=== PATIENT | male | born 1950 | race Caucasian/White ===

== ENCOUNTER 2022-10-03 12:42 | Inpatient (IN) ==
--- NOTE | 2022-10-03 13:21 | CT Scan Report ---
CT head/brain wo con CLINICAL HISTORY: 72 years-old Male with Neuro deficit, acute, stroke suspected. Acute strokelike sy mptoms TECHNIQUE: Multiple axial CT images of the head were obtained without contrast. A dose lowering tech nique was utilized adhering to the principles of ALARA. CT DOSE: 703.85 mGy.cm COMPARISON: None. FINDINGS: No acute intracranial hemorrhage, midline shift, intracranial mass, hydrocephalus, territorial ischem ia or abnormal extra-axial collection. Involutional changes with chronic microvascular ischemic disea se. 3 cm hypodense focus noted within the left lentiform nucleus/external capsule. Cerebral vascular calcifications. The study is motion degraded. The calvarium is intact. Mild mucosal thickening of the paranasal sinuses. The mastoid air cells are clear. IMPRESSION: 1. No acute intracranial hemorrhage, midline shift or acute territorial infarct. 2. Involutional changes with chronic microvascular ischemic disease. 3. Age-indeterminate infarct within the left lentiform nucleus/external capsule, 3 cm. Correlate with prior imaging. ACT 112: Negative or not required by law. The above report was generated using voice recognition software. It may contain grammatical, syntax o r spelling errors. Electronically signed by: Juan Pablo Wolff M.D. 10/03/2022 1:20 PM
[2022-10-03 13:40] LABS: Hematocrit (blood only) 36.8 % (42.0-52.0); Hemoglobin 12.2 g/dl (14.0-18.0); Mean Corpuscular Hemoglobin 27.8 pg (25.0-34.0); Mean Corpuscular Hgb Conc 33.2 g/dL (32.0-36.0); Mean Corpuscular Volume 83.8 fL (80.0-100.0); Mean Platelet Volume 10.6 fL (9.4-12.4); Platelet Count 322 K/uL (130-400); RDW Coefficient of Variation 13.3 % (11.5-14.5); RDW Standard Deviation 40.7 fL (36.4-46.3); Red Blood Count 4.39 M/uL (4.70-6.10); White Blood Count 11.01 K/ul (4.8-10.8)
[2022-10-03 14:03] LABS: Alanine Aminotransferase 44 U/L (7-52); BUN Creatinine Ratio 10.6 (10-20); Bilirubin,Total 0.5 mg/dl (0.2-1.0); Blood Urea Nitrogen 42 mg/dl (6-23); Calcium 8.1 mg/dl (8.6-10.3); Carbon Dioxide 25 mmol/L (21-32); Chloride 109 mmol/L (98-107); Est GFR (African American) 16.4 ml/min; Est GFR (Non-African American) 14.2 ml/min; Glucose 165 mg/dl (70-99(Fasting)); Total Protein 6.4 gm/dl (6.0-8.3)
--- NOTE | 2022-10-03 14:08 | XRay Report ---
SINGLE VIEW CHEST CLINICAL HISTORY: Strokelike symptoms FINDINGS: 2 AP, portable, upright chest radiographs are compared to study dated 11/20/2012. The heart i s enlarged noting atherosclerotic calcification of the thoracic aorta. The pulmonary vasculature is n oncongestive. Chronic interstitial thickening similar to previous. Scarring/atelectasis is noted at t he lung bases. No airspace consolidation or large pleural effusion is identified. No pneumothorax is seen. The skeletal structures are osteopenic. The bony thorax is grossly intact. IMPRESSION: Cardiomegaly with no acute cardiopulmonary abnormality identified. ACT 112: Negative or not required by law. Electronically signed by: Ishan Salmon M.D. 10/03/2022 2:07 PM
[2022-10-03] MEDS ORDERED: ASPIRIN CHEW 324 MG PO STA (14:11)
--- NOTE | 2022-10-03 14:11 | Emergency Department Note ---
Impression & Plan Acute left-sided muscle weakness, CKD (chronic kidney disease), COVID-19 ED Provider Note NAME: GREER LINTON AGE: 72 SEX: M : 1950 ARRIVES VIA: Walk-In INFORMANT: Patient ED PROVIDER(S): Jack Jeff DO CHIEF COMPLAINT: left sided weakness HPI: Patient is a 72-year-old male who presents to the ER for left-sided weakness. He notes this has been coming and going since this past week. Yesterday has been fairly constant in the left arm. He has noticed some in the left leg as well. He believes the left leg started last night or this morning. Denies any headache or change in vision. No chest pain or shortness of breath. No nausea, vomiting, or diarrhea. No dysuria, urgency, or frequency. No history of previous strokes. No other exacerbating or remitting factors. PAST MEDICAL HISTORY:See Below PAST SURGICAL HISTORY:See Below FAMILY HISTORY:See Below SOCIAL HISTORY:See Below HOME MEDICATIONS:See Below ALLERGIES:See Below VITALS:See Below PHYSICAL EXAMINATION: GENERAL: Sitting up in bed, alert, well appearing, well nourished, no distress, non-toxic EYE EXAM: normal conjunctiva. PERRL and EOM's intact. OROPHARYNX: no exudate, no erythema, lips, buccal mucosa, and tongue normal and mucous membranes are moist NECK: supple, no nuchal rigidity, no adenopathy, non-tender LUNGS: Clear to auscultation. Normal chest wall mechanics HEART: no murmurs, S1 normal and S2 normal ABDOMEN: abdomen soft, non-tender, normo-active bowel sounds, no masses, no rebound or guarding. BACK: Back is symmetrical on inspection and there is no deformity, no midline tenderness, no CVA tenderness. SKIN: no rashes and no bruising UPPER EXTREMITIES: upper extremities are grossly normal. LOWER EXTREMITIES: No pitting edema. NEURO EXAM: Normal sensorium, cranial nerves II-XII intact, normal speech, weakness with grasp as well as flexion extension left elbow and shoulder 4-5 on the left. Right is 5 out of 5., no weakness of legs. +drift on the legt MEDICAL DECISION MAKING: Patient is a 72-year-old male who presents the ER for the above-stated compl aint. IV was established blood work was obtained. On exam patient has clear left upper extremity weakness and some subtle left lower extremity weakness. Labs show no significant leukocytosis. No anemia. BMP with a creatinine of 3.9. External records were reviewed and this appears to be fairly close to baseline. With this CT angios were not performed. LFTs bilirubin was unremarkable. Patient was COVID-positive. CT does suggest a remote infarct although this was on the left side. Chest x-ray was clean. Patient would benefit from an MRI to completely confirm CVA. Patient was updated bedside discussed with the hospitalist for further evaluation. Patient was not a stroke alert as symptoms have been waxing and waning all week and constant for the past 24 hours. Triage Nursing notes reviewed. Limited review of prior medical records performed Vital Signs: reviewed and remarkable for HTN Differential diagnosis: Differential Diagnosis includes but is not limited to ischemic Stroke, hemorrhagic stroke, bells palsy, mass, neoplasm, migraine headache, seizure, subarachnoid hemorrhage, TIA, and transient global amnesia. ER treatment provided: See below Diagnostics interpreted by me include EKG and cardiac monitoring as listed below: -Cardiac Monitoring: An order was placed for continuous cardiac monitoring. The monitor shows a rate of 90 with sinus rhythm. -ECG: Sinus rhythm rate 76 Left axis No PVCs QTc 429 -Laboratory studies:Interpreted by me as stated above in MDM and shown below. Imaging studies: Xrays: As interpreted by me: Portable AP upright 1 view of the chest shows no focal infiltrate CTs show: CT of the head as described above Consultation(s): As described in MDM Procedures:none Critical Care: None Past Med/Surg History Medical History (Updated 10/03/22 @ 19:32 by Jack Jeff DO) CKD (chronic kidney disease), stage IV Diabetes mellitus, type II HTN (hypertension) JACOB (obstructive sleep apnea) Surgical History (Updated 10/03/22 @ 17:17 by Cornelia Ordaz PA-C) History of adenectomy 2013 @ [facility] [place] History of parathyroidectomy 2009 Family History Other Diabetes Heart disease Prostate cancer Social History Smoking Status: Former smoker Smoking End Date: 1984; Hx Alcohol Use: No Hx Substance Use: No Preferred Language: Citizen Of [place] Provider Engagement Executive Required: No Beliefs That Will Affect Care: None Current Living Situation: Spouse Feels Safe at Home: Yes Safety Concerns: Feels Safe At This Time Assistive Devices: Cane Allergies Allergies Allergy/AdvReac Type Severity Reaction Status Date / Time No Known Drug Allergies Allergy . Unverified 10/03/22 15:39 egg yolk AdvReac Diarrhea Unverified 10/03/22 15:39 Home Meds Home Medications Medication Instructions Recorded Confirmed amlodipine 10 mg tablet 5 mg PO DAILY 10/03/22 10/03/22 aspirin 81 mg tablet,delayed 81 mg PO DAILY 10/03/22 10/03/22 release atorvastatin 80 mg tablet 80 mg PO DAILY 10/03/22 10/03/22 cholecalciferol (vitamin D3) 25 25 mcg PO DAILY 10/03/22 10/03/22 mcg (1,000 unit) capsule ezetimibe 10 mg tablet 10 mg PO QAM 10/03/22 10/03/22 insulin aspar prot-insulin aspart 30 unit subcut QPM 10/03/22 10/03/22 100 unit/mL (70-30) subcutaneous pen (Novolog Mix 70-30FlexPen U-100) insulin aspar prot-insulin aspart 40 unit subcut QAM 10/03/22 10/03/22 100 unit/mL (70-30) subcutaneous pen (Novolog Mix 70-30FlexPen U-100) lisinopril 40 mg tablet 40 mg PO DAILY 10/03/22 10/03/22 potassium chloride 20 mEq 20 meq PO QAM 10/03/22 10/03/22 tablet,extended release(part/cryst) semaglutide 2 mg/dose (8 mg/3 mL) 2 mg subcut WK 10/03/22 10/03/22 subcutaneous pen injector (Ozempic) sildenafil 50 mg tablet 50 mg PO DAILY PRN Erectile 10/03/22 10/03/22 Dysfunction torsemide 20 mg tablet 20 mg PO DAILY 10/03/22 10/03/22 vitamin E 400 unit tablet 400 unit PO DAILY 10/03/22 10/03/22 Results & Data (ED) Vital Signs Vital Signs - 24 hr 10/03/22 12:48 10/03/22 13:42 10/03/22 13:42 Temperature 36.9 C Temperature Source Temporal Artery Scan Pulse Rate 81 Pulse Rate [Apical] 87 Respiratory Rate 18 20 Respiratory Effort / Characteristics Non-Labored Spontaneous Non-Labored Respiratory Depth Normal Normal Blood Pressure 212/95 H Blood Pressure [Right Arm] 229/132 H Blood Pressure Mean 134 Blood Pressure Mean [Right Arm] 164 Blood Pressure Position Sitting Pulse Oximetry 94 96 Oxygen Delivery Method Room Air Room Air Room Air Sepsis Recent Fever Within 48 Hours No Sepsis New/Unexplained Change in Mental Status N/A Sepsis Action Taken by Nursing No Action Required 10/03/22 13:42 10/03/22 13:48 10/03/22 14:23 Temperature Temperature Source Pulse Rate Pulse Rate [Apical] 82 Respiratory Rate 19 Respiratory Effort / Characteristics Respiratory Depth Blood Pressure Blood Pressure [Right Arm] 185/106 H Blood Pressure Mean Blood Pressure Mean [Right Arm] 132 Blood Pressure Position Pulse Oximetry 98 98 Oxygen Delivery Method Room Air Room Air Room Air Sepsis Recent Fever Within 48 Hours Sepsis New/Unexplained Change in Mental Status Sepsis Action Taken by Nursing 10/03/22 14:28 Temperature Temperature Source Pulse Rate 79 Pulse Rate [Apical] Respiratory Rate Respiratory Effort / Characteristics Respiratory Depth Blood Pressure Blood Pressure [Right Arm] Blood Pressure Mean Blood Pressure Mean [Right Arm] Blood Pressure Position Pulse Oximetry Oxygen Delivery Method Sepsis Recent Fever Within 48 Hours Sepsis New/Unexplained Change in Mental Status Sepsis Action Taken by Nursing Laboratory Data 10/03/22 13:04 10/03/22 13:04 Lab Results 10/03/22 10/03/22 10/03/22 Range/Units 13:04 13:04 13:04 WBC 11.01 H (4.8-10.8) K/ul RBC 4.39 L (4.70-6.10) M/uL Hgb 12.2 L (14.0-18.0) g/dl Hct 36.8 L (42.0-52.0) % MCV 83.8 (80.0-100.0) fL MCH 27.8 (25.0-34.0) pg MCHC 33.2 (32.0-36.0) g/dL RDW Std Deviation 40.7 (36.4-46.3) fL RDW Coeff of Isai 13.3 (11.5-14.5) % Plt Count 322 (130-400) K/uL MPV 10.6 (9.4-12.4) fL PT Cancelled INR Cancelled APTT Cancelled PTT Ratio Cancelled Sodium TNP Potassium TNP Chloride 109 H (98-107) mmol/L Carbon Dioxide 25 (21-32) mmol/L Anion Gap TNP BUN 42 H (6-23) mg/dl Creatinine 3.98 H (0.6-1.4) mg/dl Est Cr Clr Drug Dosing Not Reportable Est GFR ( Amer) 16.4 ml/min Est GFR (Non-Af Amer) 14.2 ml/min BUN/Creatinine Ratio 10.6 (10-20) Glucose 165 H (70-99(Fasting)) mg/dl Calcium 8.1 L (8.6-10.3) mg/dl Magnesium TNP Total Bilirubin 0.5 (0.2-1.0) mg/dl AST TNP ALT 44 (7-52) U/L Alkaline Phosphatase TNP Total Protein 6.4 (6.0-8.3) gm/dl Albumin TNP Globulin TNP Albumin/Globulin Ratio TNP SARS-CoV-2, RNA, NAAT (NEGATIVE) 10/03/22 10/03/22 Range/Units 14:05 14:19 WBC (4.8-10.8) K/ul RBC (4.70-6.10) M/uL Hgb (14.0-18.0) g/dl Hct (42.0-52.0) % MCV (80.0-100.0) fL MCH (25.0-34.0) pg MCHC (32.0-36.0) g/dL RDW Std Deviation (36.4-46.3) fL RDW Coeff of Isai (11.5-14.5) % Plt Count (130-400) K/uL MPV (9.4-12.4) fL PT INR APTT PTT Ratio Sodium 145 Potassium 3.7 Chloride (98-107) mmol/L Carbon Dioxide (21-32) mmol/L Anion Gap BUN (6-23) mg/dl Creatinine (0.6-1.4) mg/dl Est Cr Clr Drug Dosing Est GFR ( Amer) ml/min Est GFR (Non-Af Amer) ml/min BUN/Creatinine Ratio (10-20) Glucose (70-99(Fasting)) mg/dl Calcium (8.6-10.3) mg/dl Magnesium 2.1 Total Bilirubin (0.2-1.0) mg/dl AST 30 ALT (7-52) U/L Alkaline Phosphatase 64 Total Protein (6.0-8.3) gm/dl Albumin 2.7 L Globulin Albumin/Globulin Ratio SARS-CoV-2, RNA, NAAT POSITIVE A* (NEGATIVE) Administered Medications Discontinued Medications Aspirin (Aspirin Chew 324 Mg) 81 mg PO NOW STA Stop: 10/03/22 14:12 Last Admin: 10/03/22 14:26 Dose: 81 mg Documented By: Labetalol HCl (Labetalol Hcl Iv 5 Mg/Ml 20ml) 10 mg IV NOW STA Stop: 10/03/22 17:23 Last Admin: 10/03/22 17:46 Dose: 10 mg Documented By: FREDERICK Co-signed By: CA Nifedipine (Nifedipine Extended Rel 30 Mg Tabcr) 30 mg PO NOW STA Stop: 10/03/22 17:29 Last Admin: 10/03/22 17:46 Dose: 30 mg Documented By: FREDERICK Imaging Data Radiologist's Impression: Chest X-Ray 10/03/22 12:54 SINGLE VIEW CHEST CLINICAL HISTORY: Strokelike symptoms FINDINGS: 2 AP, portable, upright chest radiographs are compared to study dated 11/20/2012. The heart is enlarged noting atherosclerotic calcification of the thoracic aorta. The pulmonary vasculature is noncongestive. Chronic interstitial thickening similar to previous. Scarring/atelectasis is noted at the lung bases. No airspace consolidation or large pleural effusion is identified. No pneumothorax is seen. The skeletal structures are osteopenic. The bony thorax is grossly intact. IMPRESSION: Cardiomegaly with no acute cardiopulmonary abnormality identified. ACT 112: Negative or not required by law. Electronically signed by: Ishan Salmon M.D. 10/03/2022 2:[address] 10/03/22 12:54 CT head/brain wo con CLINICAL HISTORY: 72 years-old Male with Neuro deficit, acute, stroke suspected. Acute strokelike symptoms TECHNIQUE: Multiple axial CT images of the head were obtained without contrast. A dose lowering technique was utilized adhering to the principles of ALARA. CT DOSE: 703.85 mGy.cm COMPARISON: None. FINDINGS: No acute intracranial hemorrhage, midline shift, intracranial mass, hydrocepha aguilar, territorial ischemia or abnormal extra-axial collection. Involutional changes with chronic microvascular ischemic disease. 3 cm hypodense focus noted within the left lentiform nucleus/external capsule. Cerebral vascular calcifications. The study is motion degraded. The calvarium is intact. Mild mucosal thickening of the paranasal sinuses. The mastoid air cells are clear. IMPRESSION: 1. No acute intracranial hemorrhage, midline shift or acute territorial infarct. 2. Involutional changes with chronic microvascular ischemic disease. 3. Age-indeterminate infarct within the left lentiform nucleus/external capsule, 3 cm. Correlate with prior imaging. ACT 112: Negative or not required by law. The above report was generated using voice recognition software. It may contain grammatical, syntax or spelling errors. Electronically signed by: Juan Pablo Wolff M.D. 10/03/2022 1:20 PM Discharge Plan Visit Data Chief Complaint: Neuro Symptoms/Deficit Stated Complaint: NUMBNESS ON LEFT ARM ED Provider: Jack Jeff Discharge Problem: Acute left-sided muscle weakness, CKD (chronic kidney disease), COVID-19 Patient Disposition: Admitted As Inpatient Discharge Instructions Interventions: ED Discharge Assessment Last Done: 10/03/22 15:52
--- NOTE | 2022-10-03 14:26 | History & Physical Report ---
Date of Service October 03, 2022 Assessment & Plan (1) Left-sided weakness: (2) Diabetes mellitus, type II: (3) HTN (hypertension): (4) CKD (chronic kidney disease), stage IV: (5) JACOB (obstructive sleep apnea): Plan This is a 72-year-old male with PMH of type 2 diabetes, CKD 4, type 2 diabetes, dyslipidemia, JACOB, h/o carotid artery dissection, hypertension, pancreatic cyst and other medical problems listed below who presents with intermittent left upper extremity weakness over the past week. Left sided weakness Weakness and clumsiness of L hand for over 1 week, subtle LLE weakness noted over past few days Given aspirin in the ED, already on high dose statin Head CT with no acute intracranial hemorrhage, midline shift or acute territorial infarct, involutional changes with chronic microvascular ischemic disease, age-indeterminate infarct within the L lentiform nucleus/external capsule, 3 cm Cannot obtain CTA head/neck due CKD. Will obtain brain MRI wo contrast, bilateral carotid dopplers and echo with bubble study Dysphagia screen, PT/OT/speech, routine neuro consult HTN Elevated 212/87, does endorse some white coat syndrome, took AM meds Chlorthalidone and lasix recently discontinued, amlodipine decreased Giving IV Labetalol 10mg x 1 now, starting nifedipine 30mg BID in AM Continue to monitor DM II A1c 6.8 in July Basal/bolus insulin while in-patient per protocol BSG AC HS CKD IV Cr 3.98 today, still making urine Progressively worsening Cr per outpatient labs, previous Cr baseline ~mid 3s Was due to see Dr. Stevens in clinic this afternoon Holding Torsemide for now, routine nephro consult while admitted + Covid PCR on admission Asymptomatic. Isolation precautions JACOB Clarifying if still using of bipap HS DVT Ppx: SQ heparin Code status: FULL PCP: Yong Dispo: Admitted to PCU Patient seen in collaboration with Dr. Brooks. Please see addendum. I spent a total of 75 minutes coordinating, documenting, and providing care for this patient excluding time spent in the performance of separately billed services. History of Present Illness Chief Complaint: Left upper extremity weakness Primary Care Provider: Agatha Beach, This is a 72-year-old male with PMH of type 2 diabetes, CKD 4, type 2 diabetes, dyslipidemia, JACOB, h/o carotid artery dissection, hypertension, pancreatic cyst and other medical problems listed below who presents with intermittent left upper extremity weakness over the past week. Had weakness and numbness of L arm a week ago Monday evening that went away and then came back yesterday while resting. Hand felt heavy and clumsy, with his dexterity notably worsening this morning around 0700 when he could no longer button his shirt or tie his ponytail. Also admits that left leg has felt weaker over the past few days but is still been able to ambulate. No headache, lightheadedness, visual changes, falls, dysarthria or difficulty swallowing, chest pain, shortness of breath, nausea, vomiting, dumping, dysuria, diarrhea or constipation. Was seen by PCP a few days prior and has had a general decline of health since July. Has had worsening CKD and recent blood pressure medication changes such as discontinuation of chlorthalidone and Lasix. Allergies Allergy/AdvReac Type Severity Reaction Status Date / Time No Known Drug Allergies Allergy . Unverified 10/03/22 15:39 egg yolk AdvReac Diarrhea Unverified 10/03/22 15:39 Home Medications Medication Instructions Recorded Confirmed Type amlodipine 10 mg tablet 5 mg PO DAILY 10/03/22 10/03/22 History aspirin 81 mg tablet,delayed 81 mg PO DAILY 10/03/22 10/03/22 History release atorvastatin 80 mg tablet 80 mg PO DAILY 10/03/22 10/03/22 History cholecalciferol (vitamin D3) 25 25 mcg PO DAILY 10/03/22 10/03/22 History mcg (1,000 unit) capsule ezetimibe 10 mg tablet 10 mg PO QAM 10/03/22 10/03/22 History insulin aspar prot-insulin aspart 30 unit subcut QPM 10/03/22 10/03/22 History 100 unit/mL (70-30) subcutaneous pen (Novolog Mix 70-30FlexPen U-100) insulin aspar prot-insulin aspart 40 unit subcut QAM 10/03/22 10/03/22 History 100 unit/mL (70-30) subcutaneous pen (Novolog Mix 70-30FlexPen U-100) lisinopril 40 mg tablet 40 mg PO DAILY 10/03/22 10/03/22 History potassium chloride 20 mEq 20 meq PO QAM 10/03/22 10/03/22 History tablet,extended release(part/cryst) semaglutide 2 mg/dose (8 mg/3 mL) 2 mg subcut WK 10/03/22 10/03/22 History subcutaneous pen injector (Ozempic) sildenafil 50 mg tablet 50 mg PO DAILY PRN Erectile 10/03/22 10/03/22 History Dysfunction torsemide 20 mg tablet 20 mg PO DAILY 10/03/22 10/03/22 History vitamin E 400 unit tablet 400 unit PO DAILY 10/03/22 10/03/22 History Past Med/Surg History Medical History (Updated 10/03/22 @ 19:32 by Jack Jeff DO) CKD (chronic kidney disease), stage IV Diabetes mellitus, type II HTN (hypertension) JACOB (obstructive sleep apnea) Surgical History (Updated 10/03/22 @ 17:17 by Cornelia Ordaz PA-C) History of adenectomy 2013 @ [facility] [place] History of parathyroidectomy 2009 Family History Other Diabetes Heart disease Prostate cancer Social History Smoking Status: Former smoker Smoking End Date: 1984; Hx Alcohol Use: No Hx Substance Use: No Preferred Language: Ecuadorean Chuck Tender Required: No Beliefs That Will Affect Care: None Current Living Situation: Spouse Feels Safe at Home: Yes Safety Concerns: Feels Safe At This Time Assistive Devices: Cane Review of Systems Review of Systems: At least ten systems reviewed and negative except as noted in the HPI. Physical Exam Physical Exam: General Appearance: WD/WN, vitals as above, NAD, sitting up in bed, pleasant, conversing easily, obese Head: normocephalic, atraumatic Eyes: normal inspection, PERRL, conjunctivae normal, anicteric sclerae ENT: external ear and nose normal, oropharynx normal Neck: normal visual inspection, trachea midline, no thyromegaly Respiratory: normal respiratory effort, decreased breath sounds bilaterally, no wheeze, rales, rhonchi. No accessory muscle use Cardiovascular: regular rate, rhythm, + murmur, normal peripheral pulses, + BLE edema. Vessels: no JVD Chest: normal inspection of chest Abdomen/GI: normal bowel sounds, soft, nontender, no hepatosplenomegaly Extremities/Musculoskeletal: no cyanosis or clubbing, moves all extremities, LUE and LLE 4/5, RUE/RLE 5/5 Neurologic: PERRL, EOMI, accommodation nl, no face palsy, no dysarthria, CN's II-XI intact bilaterally, + Pronator drift L, dysmetria on L [id number] test Psychiatric: A+Ox3, euthymic affect Skin: no rashes, normal color, warm/dry Results & Data Results & Data Vital Signs (Past 12 Hours) Vital Signs Temp Pulse Pulse Resp BP BP Pulse Ox 10/03/22 13:48 10/03/22 13:42 98 10/03/22 13:42 10/03/22 13:42 87 20 229/132 H 96 10/03/22 12:48 36.9 C 81 18 212/95 H 94 O2 Del Method 10/03/22 13:48 Room Air 10/03/22 13:42 Room Air 10/03/22 13:42 Room Air 10/03/22 13:42 Room Air 10/03/22 12:48 Room Air Laboratory Results Short CBC 10/03/22 Range/Units 13:04 WBC 11.01 H (4.8-10.8) K/ul Hgb 12.2 L (14.0-18.0) g/dl Hct 36.8 L (42.0-52.0) % Plt Count 322 (130-400) K/uL BMP 10/03/22 10/03/22 13:04 14:19 Sodium TNP 145 Potassium TNP 3.7 Chloride 109 H Carbon Dioxide 25 BUN 42 H Creatinine 3.98 H Glucose 165 H Calcium 8.1 L Liver Function 10/03/22 10/03/22 Range/Units 13:04 14:19 Total Bilirubin 0.5 (0.2-1.0) mg/dl AST TNP 30 ALT 44 (7-52) U/L Alkaline Phosphatase TNP 64 Albumin TNP 2.7 L Diagnostic Findings Chest X-Ray 10/03/22 12:54 SINGLE VIEW CHEST CLINICAL HISTORY: Strokelike symptoms FINDINGS: 2 AP, portable, upright chest radiographs are compared to study dated 11/20/2012. The heart is enlarged noting atherosclerotic calcification of the thoracic aorta. The pulmonary vasculature is noncongestive. Chronic interstitial thickening similar to previous. Scarring/atelectasis is noted at the lung bases. No airspace consolidation or large pleural effusion is identified. No pneumothorax is seen. The skeletal structures are osteopenic. The bony thorax is grossly intact. IMPRESSION: Cardiomegaly with no acute cardiopulmonary abnormality identified. ACT 112: Negative or not required by law. Electronically signed by: Ishan Salmon M.D. 10/03/2022 2:[address] 10/03/22 12:54 CT head/brain wo con CLINICAL HISTORY: 72 years-old Male with Neuro deficit, acute, stroke suspected. Acute strokelike symptoms TECHNIQUE: Multiple axial CT images of the head were obtained without contrast. A dose lowering technique was utilized adhering to the principles of ALARA. CT DOSE: 703.85 mGy.cm COMPARISON: None. FINDINGS: No acute intracranial hemorrhage, midline shift, intracranial mass, hydrocephalus, territorial ischemia or abnormal extra-axial collection. Involutional changes with chronic microvascular ischemic disease. 3 cm hypodense focus noted within the left lentiform nucleus/external capsule. Cerebral vascular calcifications. The study is motion degraded. The calvarium is intact. Mild mucosal thickening of the paranasal sinuses. The mastoid air cells are clear. IMPRESSION: 1. No acute intracranial hemorrhage, midline shift or acute territorial infarct. 2. Involutional changes with chronic microvascular ischemic disease. 3. Age-indeterminate infarct within the left lentiform nucleus/external capsule, 3 cm. Correlate with prior imaging. ACT 112: Negative or not required by law. The above report was generated using voice recognition software. It may contain grammatical, syntax or spelling errors. Electronically signed by: Juan Pablo Wolff M.D. 10/03/2022 1:20 PM ECG Additional Comments: EKG reviewed: NSR, no significant change from previous Supervising Physician Co-Signing Physician Notes I have seen and examined the patient and have discussed the case with the provider above. I agree with the assessment and plan as stated with the following exceptions. Patient is a 72-year-old man with diabetes and a history of carotid artery dissection presenting with left-sided weakness for the past week. He is mentating clearly and denies any headache or visual changes. He reports poor dexterity in his hand specifically when performing fine motor movements such as tying his hair back. He takes a baby aspirin at home as well as atorvastatin 80 mg daily. He reports compliance with his antihypertensive regimen although his blood pressure is uncontrolled peaking today at 229/132. He takes lisinopril 40 mg daily, torsemide 20 mg daily and amlodipine which was recently cut back out of concern for lower extremity swelling. Although he has lower extremity swelling he also reports a recent gout flare in his right foot and took prednisone for this just recently which may also be contributing to his swelling. On physical exam he is in no acute distress and he is able to move his left upper extremity although has 4 out of 5 knife cutter strength and 4-5 strength throughout in his arm with poor demonstration of fine motor movement in his left hand compared to other extremities. There are no other gross focal deficits seen on exam. Speech is intact language and memory are intact. He is oriented and answering questions appropriately. Cardiac exam reveals S1-S2 heard with no evidence of murmurs gallops or rubs. He has a regular rate and rhythm. He does have trace edema bilaterally in the lower extremities. He is obese. Work-up includes a slightly abnormal CBC with a white blood cell count of 11 and H&H 12.2/37. He has no coagulopathy. BMP is abnormal with a BUN of 42 and a creatinine of 3.98. Albumin is low at 2.7. He is COVID-positive. Head CT as noted above with age-indeterminate infarct within the left lentiform nucleus/external capsule and chronic microvascular ischemic disease seen. MRI is pending. Chest x-ray is unremarkable. EKG reveals sinus rhythm with LVH and a rate of 76. 1. Left upper extremity weakness, rule out stroke 2. Hypertensive urgency 3. CKD Stage IV 4. DMII 5. Covid-19 infection 6. Morbid obesity Concern for stroke with new onset neurologic deficit in LUE. MRI pending. Known h/o carotid dissection-continues on ASA/statin--repeat US carotids now. Neuro consult. Echo. PT/OT to eval in am. Blood pressure is not controlled despite compliance with medications per patient. Improved with labetalol. Appreciate nephrology assistance with this in the setting of CKD Stage IV. Although norvasc was decreased out of concern for LE swelling, he recently had a gout flare and prednisone that may be contributing to these findings. Held ACEI and diuretic given slightly worse creatinine, and started nifedipine. Diabetes appears very well controlled. Weight loss advised. He did have nasal symptoms consistent with covid infection and is not requiring any covid specific treatments at this time. DO Todd
[2022-10-03 14:58] LABS: Albumin Level 2.7 gm/dl (3.4-5.0); Magnesium 2.1 mg/dl (1.7-2.4); Potassium 3.7 mmol/L (3.5-5.1)
[2022-10-03 16:19] LABS: INR 1.1 (0.9-1.1); Partial Thromboplastin Time 28.5 Seconds (21.0-31.0); Prothrombin Time 11.6 Seconds (9.0-12.0)
[2022-10-03] MEDS ORDERED: POLYETHYLENE (MIRALAX) 17 GM PACK PO PRN (16:27)
[2022-10-03] MEDS ORDERED: ACETAMINOPHEN 325 MG TAB PO PRN (16:27)
[2022-10-03] MEDS ORDERED: PHARMACIST DISCHARGE MED REC CONSULT PRN (16:27)
[2022-10-03] MEDS ORDERED: ONDANSETRON INJ 2 MG/ML 2 ML VIAL IV PRN (16:27)
[2022-10-03] MEDS ORDERED: Patient's HEIGHT &/or WEIGHT Needed SCH (16:45)
--- NOTE | 2022-10-03 17:10 | Electrocardiogram Report ---
Test Reason : Blood Pressure : / mmHG Vent. Rate : 076 BPM Atrial Rate : 076 BPM P-R Int : 160 ms QRS Dur : 086 ms QT Int : 382 ms P-R-T Axes : 066 -22 055 degrees QTc Int : 429 ms Normal sinus rhythm Left ventricular hypertrophy with repolarization abnormality Abnormal ECG When compared with ECG of 20-NOV-2012 10:50, No significant change was found Confirmed by Blayne Jarquin ([id number]) on 10/03/2022 5:09:57 PM Referred By: Confirmed By:Jerome Jarquin
[2022-10-03] MEDS ORDERED: LABETALOL HCL IV 5 MG/ML 20ML IV STA (17:22)
[2022-10-03] MEDS ORDERED: NIFEdipine EXTENDED REL 30 MG TABCR PO STA (17:28)
[2022-10-03] MEDS ORDERED: CARBOHYDRATES FOR HYPOGLYCEMIA PO PRN (18:23)
[2022-10-03] MEDS ORDERED: GLUCAGON FOR INJ 1 MG VIAL SQ PRN (18:23)
[2022-10-03] MEDS ORDERED: GLUCOSE 10 TAB/TUBE PO PRN (18:23)
[2022-10-03] MEDS ORDERED: GLUCOSE 40% GEL 15 GM TUBE PO PRN (18:23)
[2022-10-03] MEDS ORDERED: DEXTROSE 50% 50 ML SYRINGE IV PRN (18:23)
[2022-10-03] MEDS: INSULIN ASPART PER UNIT CHARGE SC SCH (20:24)
[2022-10-03] MEDS: LANTUS PER UNIT CHARGE SQ SCH (20:28)
[2022-10-03] MEDS: HEPARIN SOD 5,000 UNIT/0.5 ML VIAL SQ SCH (21:24)
--- NOTE | 2022-10-03 22:43 | Magnetic Resonance Report ---
Exam(s): MRI HEAD Without Contrast EXAM: MR Head Without Intravenous Contrast CLINICAL HISTORY: Reason for exam: LUE weakness, stroke felicita. TECHNIQUE: Magnetic resonance images of the head/brain without intravenous contrast in multiple planes. COMPARISON: CT head 10/03/22 FINDINGS: There is a 12 mm focus of diffusion restriction within the right harris radiata consistent with acute/subacute lacunar-type infarct. No other foci of acute cerebral ischemia are demonstrated. There is no acute intracranial hemorrhage or abnormal extra-axial fluid collection. Focus of susceptibility artifact adjacent to the occipital horn of the right lateral ventricle suggests remote microhemorrhage. There is no mass-effect or midline shift. There is generalized parenchymal volume loss. There are chronic lacunar infarcts in the left caudate, left putamen, and right thalamus. T2 hyperintense signal abnormality in the periventricular and deep cerebral white matter is consistent with mild to moderate chronic small vessel ischemic disease. There is no hydrocephalus. Visualized intracranial flow voids appear normal. Left vertebral artery is noted to be hypoplastic. There is trace mucosal thickening in the paranasal sinuses. Mastoid air cells are clear. Orbits are unremarkable. IMPRESSION: 1. Acute/subacute lacunar-type infarct in the right harris radiata. Communications: Call Doctor Stroke Electronically signed by: Dusty Weir M.D. 10/03/22 22:42 PM
--- NOTE | 2022-10-03 23:28 | Ultrasound Report ---
Exam(s): US CAROTID EXAM: US Duplex Bilateral Extracranial Arteries CLINICAL HISTORY: Reason for exam: stroke eval,LUE weakness. TECHNIQUE: Real-time duplex ultrasound scan of the extracranial arteries integrating B-mode two-dimensional vascular structure, Doppler spectral analysis and color flow Doppler imaging. COMPARISON: No relevant prior studies available. FINDINGS: Right common carotid artery: Multifocal calcific plaque. No occlusion or significant stenosis on color flow and spectral Doppler imaging. Right internal carotid artery: Multifocal calcific plaque. Peak systolic velocity 74 cm/s. No occlusion or significant stenosis on color flow and spectral Doppler imaging. Right external carotid artery: Calcific plaque. Mildly elevated velocity of 133 cm/s suggesting mild stenosis. No occlusion on color flow and spectral Doppler imaging. Right vertebral artery: Unremarkable. Antegrade flow. Right ICA/CCA ratio: 0.70. Within normal limits. Left common carotid artery: Multifocal calcific plaque. No occlusion or significant stenosis on color flow and spectral Doppler imaging. Left internal carotid artery: Multifocal calcific plaque. Peak systolic velocity 97 cm/s. No occlusion or significant stenosis on color flow and spectral Doppler imaging. Left external carotid artery: Calcific plaque. Elevated peak systolic velocity of 340 cm/s suggesting high-grade stenosis. No occlusion on color flow and spectral Doppler imaging. Left vertebral artery: Unremarkable. Antegrade flow. Left ICA/CCA ratio: 1.1. Within normal limits. CAROTID STENOSIS REFERENCE USING SRU CRITERIA: Mild - <50% stenosis. ICA PSV is less than 125 cm/second and plaque or intimal thickening is visible. Moderate - 50-69% stenosis. ICA PSV is 125 to 230 cm/second and plaque is visible. Severe - 70-94% stenosis. ICA PSV is more than 230 cm/second and visible plaque with lumen narrowing is seen. Near occlusion - 95-99% stenosis. ICA PSV is variable and significant plaque with luminal narrowing is seen. Occluded - 100% stenosis. No flow identified. IMPRESSION: 1. Bilateral carotid atherosclerotic disease. 2. Estimated less than 50% stenosis in the bilateral ICAs by sonographic criteria. 3. Incidentally noted severe stenosis in the left external carotid artery. Electronically signed by: Dusty Weir M.D. 10/03/22 23:27 PM
[2022-10-04] MEDS: HEPARIN SOD 5,000 UNIT/0.5 ML VIAL SQ SCH ×3 (05:40→21:07)
[2022-10-04] MEDS: CHOLECALCIFEROL 1,000 UNITS 25 MCG TAB PO SCH (08:02)
[2022-10-04] MEDS: POTASSIUM CHLORIDE CRTAB 20 MEQ TABCR PO SCH (08:02)
[2022-10-04] MEDS: EZETIMIBE 10 MG TABLET PO SCH (08:02)
[2022-10-04] MEDS: ASPIRIN 81 MG ECTAB PO SCH (08:03)
[2022-10-04] MEDS: ATORVASTATIN 40 MG TAB PO SCH (08:03)
[2022-10-04] MEDS: TOCOPHERYL, DL-ALPHA 400 UNITS 180 MG CAP PO SCH (08:03)
[2022-10-04 08:18] LABS: Hematocrit (blood only) 33.4 % (42.0-52.0); Hemoglobin 11.3 g/dl (14.0-18.0); Mean Corpuscular Hemoglobin 28.3 pg (25.0-34.0); Mean Corpuscular Hgb Conc 33.8 g/dL (32.0-36.0); Mean Corpuscular Volume 83.5 fL (80.0-100.0); Mean Platelet Volume 10.6 fL (9.4-12.4); Platelet Count 290 K/uL (130-400); RDW Coefficient of Variation 13.7 % (11.5-14.5); RDW Standard Deviation 41.4 fL (36.4-46.3); White Blood Count 10.28 K/ul (4.8-10.8)
[2022-10-04 08:23] LABS: BUN Creatinine Ratio 10.1 (10-20); Calcium 8.2 mg/dl (8.6-10.3); Chol HDL Ratio 3.9 (0-5); Creatinine Clr Calc Pharmacy 23.1 ml/min; Est GFR (African American) 16.5 ml/min; Est GFR (Non-African American) 14.3 ml/min; Potassium 3.1 mmol/L (3.5-5.1)
[2022-10-04] MEDS: LANTUS PER UNIT CHARGE SQ SCH ×2 (08:34→20:54)
[2022-10-04] MEDS: INSULIN ASPART PER UNIT CHARGE SC SCH ×4 (08:34→20:42)
[2022-10-04] MEDS ORDERED: amLODIPine BESYLATE 5 MG TAB PO SCH (09:00)
[2022-10-04] MEDS ORDERED: lisinopril 40 MG TAB PO SCH (09:00)
[2022-10-04] MEDS ORDERED: TORSEMIDE 20 MG TAB PO SCH (09:00)
[2022-10-04] MEDS: NIFEdipine EXTENDED REL 30 MG TABCR PO SCH (09:05)
--- NOTE | 2022-10-04 09:25 | Nephrology Consultation ---
Date of Consultation October 04, 2022 Assessment & Plan (1) HTN (hypertension): Goal MAP for now is 95-100. Current MAP is 102, acceptable. -continue nifedipine standing -wrote for standing labetalol 5 mg IV as needed MAP greater than 110 every 4 hours Continue to hold torsemide and losartan (2) CKD (chronic kidney disease), stage IV: rapidly progressive CKD 4; high risk to need dialysis next 12 -18 mos if not sooner. CKD attributed to hypertension, diabetes, class III obesity hi storically. Creatinine was mid threes early July, up to 22 September 4. Would not consider this acute kidney injury necessarily but progressive CKD. Concern for nephrotic syndrome emerging given that albuminuria worsened recently from 3 g daily in 2021 to 8 g daily in August. Patient follows with Dr. Stevens and was to see him this week but is hospitalized instead. Note also albumin is only 2.7 after historically being near normal as recently as late 2021 -daily BMP -close OP f/u; including close follow-up with CKD medical case worker and ESRD education Torsemide and ARB on hold for now Potassium 3.1 today without recent administration of diuretics: 40 mill equivalents x1 p.o. potassium Not currently on renal diet and none indicated so far We will check phosphorus in a.m. -no hx of formal OP proteinuria eval > consider as OP or IP; w/ acute stroke not a candidate for immunosuppressive therapy imminently (3) Acute CVA (cerebrovascular accident): per neuro and primary service History of Present Illness Reason for Consultation: CKD 4, worsening renal function Requesting Physician: Dr Brooks Attending Physician: Vita Kilgore MD History of Present Illness 72 y/o M whom I'm asked to see for advanced CKD / CKD 4 was admitted yesterday for evaluation of one week of L sided weakness. Neurology w/u shows acute small R harris radiata stroke. He tested positive for covid on presentation but has been asymptomatic PMH includes progressive sub nephrotic CKD 4 GFR newly 20 > 15 in 2022, DM, HTN, s/p L adrenalectomy for mgt of secondary HTN and s/p 2013 parathryoidectomy for ?primary HPTH, JACOB intolerant of CPAP. h/o carotid artery dissection, gout, pancreatic cyst. The patient reported weakness and numbness of L arm a week ago Monday evening which resolved but recurred October 02. Hand felt heavy and clumsy. He opted to come to the ER after his dexterity notably worsening 7 AM on October 03 to where he could no longer button his shirt or tie his ponytail. Also endorsed a few days of left leg weakness at admission. MRI as below. His presenting blood pressure was 212 systolic: Has run in the 160s to 170s since last evening. Per neuro, goal MAP is 95-100 No headache, lightheadedness, visual changes, falls, dysarthria or difficulty swallowing, chest pain, shortness of breath, nausea, vomiting, dumping, dysuria, diarrhea or constipation. at bedside when I evaluated pt today Allergies Allergy/AdvReac Type Severity Reaction Status Date / Time No Known Drug Allergies Allergy . Unverified 10/03/22 15:39 egg yolk AdvReac Diarrhea Unverified 10/03/22 15:39 Home Medications Medication Instructions Recorded Confirmed Type amlodipine 10 mg tablet 5 mg PO DAILY 10/03/22 10/03/22 History aspirin 81 mg tablet,delayed 81 mg PO DAILY 10/03/22 10/03/22 History release atorvastatin 80 mg tablet 80 mg PO DAILY 10/03/22 10/03/22 History cholecalciferol (vitamin D3) 25 25 mcg PO DAILY 10/03/22 10/03/22 History mcg (1,000 unit) capsule ezetimibe 10 mg tablet 10 mg PO QAM 10/03/22 10/03/22 History insulin aspar prot-insulin aspart 30 unit subcut QPM 10/03/22 10/03/22 History 100 unit/mL (70-30) subcutaneous pen (Novolog Mix 70-30FlexPen U-100) insulin aspar prot-insulin aspart 40 unit subcut QAM 10/03/22 10/03/22 History 100 unit/mL (70-30) subcutaneous pen (Novolog Mix 70-30FlexPen U-100) lisinopril 40 mg tablet 40 mg PO DAILY 10/03/22 10/03/22 History potassium chloride 20 mEq 20 meq PO QAM 10/03/22 10/03/22 History tablet,extended release(part/cryst) semaglutide 2 mg/dose (8 mg/3 mL) 2 mg subcut WK 10/03/22 10/03/22 History subcutaneous pen injector (Ozempic) sildenafil 50 mg tablet 50 mg PO DAILY PRN Erectile 10/03/22 10/03/22 History Dysfunction torsemide 20 mg tablet 20 mg PO DAILY 10/03/22 10/03/22 History vitamin E 400 unit tablet 400 unit PO DAILY 10/03/22 10/03/22 History Patient History Medical History (Updated 10/04/22 @ 22:04 by Yoly Martinez MD, PhD) CKD (chronic kidney disease), stage IV Diabetes mellitus, type II HTN (hypertension) Obesity due to excess calories with serious comorbidity JACOB (obstructive sleep apnea) Surgical History [place] of [place]ectomy [place] [facility] [place] History of parathyroidectomy 2009 Family History Father , age 90 with prostate cancer Prostate cancer Mother , age 67 of congestive heart failure Heart disease Other Diabetes Social History Smoking Status: Former smoker Age Started Using Tobacco: 12; Age Quit Using Tobacco: 35; packs per day: 1; Smoking End Date: 1984; Hx Alcohol Use: No Hx Substance Use: No Preferred Language: German Communication Ability: Effective Pre Sales Network Engineer Required: No Beliefs That Will Affect Care: None Current Living Situation: Spouse current occupational status: retired 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 [employer] Feels Safe at Home: Yes Safety Concerns: Feels Safe At This Time Assistive Devices: Cane Review of Systems Review of Systems: All systems reviewed & are unremarkable except as noted in HPI & below Physical Exam Constitutional: well developed, well nourished, + morbidly obese and cooperative; no acute distress Eyes: EOM intact bilaterally ENMT: Ears: no external ear abnormality Nose: no external nose abnormality Mouth: + dry oral mucous membranes Neck: no nuchal rigidity Respiratory: normal respiratory effort Auscultation: + diminished lung so unds Cardiovascular: Rate/Rhythm: regular rate and regular rhythm Extremities: + edema Gastrointestinal (Abdomen): Inspection/Auscultation: normal bowel sounds Percussion/Palpation: abdomen soft; abdomen nontender Musculoskeletal: Extremities: strength 5/5 throughout Skin: no rashes, warm and dry Neurologic: block, fluent speech, no tremor; L sided weakness at times Results & Data Vital Signs (Past 12 Hours) Vital Signs Temp Pulse Pulse Resp BP Pulse Ox O2 Del Method 10/04/22 08:00 36.8 C 89 18 169/87 H 93 Room Air 10/04/22 07:17 82 10/04/22 04:35 36.9 C 86 18 165/80 H 93 Room Air 10/04/22 00:00 84 10/03/22 23:14 36.8 C 82 16 163/75 H 93 Room Air Laboratory Results 10/04/22 07:31 10/04/22 07:31
--- NOTE | 2022-10-04 09:57 | Neurology Consultation ---
Date of Consultation October 04, 2022 Assessment & Plan (1) Acute CVA (cerebrovascular accident): (2) Acute left hemiparesis: Plan patient had the onset of acute left arm greater than leg weakness October 03. MRI of the brain showed an acute, small right harris radiata stroke. He had an event 2 weeks previous of a similar nature. The MRI does show old small vessel ischemic disease including scattered small lacunes There are no other neurologic deficits on exam. He has multiple stroke risk factors including hypertension, diabetes, and obstructive sleep apnea. He is also a former cigarette smoker years ago. He has no known heart disease. Carotid ultrasound revealed less than 50% stenosis in the bilateral internal carotid arteries ( atherosclerotic disease ). Recommendations: 1. initiate clopidogrel 75 mg daily with the 81 mg aspirin tablet daily. Do this for 3 weeks and then discontinued aspirin and remain on clopidogrel low. 2. Awaiting echocardiogram results. 3. continue high-dose atorvastatin. 4. Consider hemoglobin A1c and treat glucose accordingly. 5. Control blood pressure as you are doing, aiming for a mean arterial pressure of 95-100. 6. Can consider MR angiography of the head ( no contrast is needed for this study ). 7. Physical and occupational therapy consult -increase activity as able. Overall, I spent a total of 75 minutes with this case including review of records, review of MRI films, direct evaluation the patient at bedside, reports generation, and discussion of the case with the patient at bedside, and Dr. Kilgore, including differential diagnosis and treatment options History of Present Illness Reason for Consultation: Patient is a 72-year-old, who I was asked to see at the request of Cornelia Ordaz PA-C, for neurologic evaluation regarding stroke Requesting Physician: Prashant Ordaz PA-C Attending Physician: Vita Kilgore MD History of Present Illness patient has a history of hypertension for at least 10 years, as well as type 2 diabetes, chronic kidney disease, and obstructive sleep apnea for close to 5 years. He has been on 81 mg aspirin tablet for years and atorvastatin 80 for about 2 years. He had an episode of swelling in his left lower extremity about 5 weeks ago, help by steroids. Approximately 2 weeks ago he noted some weakness in his left arm ( hand) and left leg. His hand was weak and he dropped things and his leg was a little weak as well. This lasted for a few days and then resolved. On October 03 he woke with some weakness in his left arm greater than left leg. It was proximal leg and diffuse in the arm with worsening weakness in the hand as time went on. He had a little bit of numbness in his left hand and foot as well. He had no speech issues, headaches, or vision issues. He arrived to the emergency room October 03 at 12:48 p.m. with a pulse of 81, respiratory rate 18, blood pressure 212/95, and O2 saturation 94%. he was noted to have weakness in the left arm and leg with drift in each limb. CBC was unremarkable and Chem profile showed a glucose of 165 an elevated BUN and creatinine. Chest x-ray showed cardiomegaly. CT scan of the head was unremarkable. MRI of the brain showed a right harris radiata acute stroke of a very small in nature. He has multiple old lacunar infarcts in the left caudate, left putamen, and right thalamus. There is chronic small vessel ischemic disease as well. I reviewed these films. Today he feels about the same no new symptoms. Nursing reports no events or problems since admission. Allergies Allergy/AdvReac Type Severity Reaction Status Date / Time No Known Drug Allergies Allergy . Unverified 10/03/22 15:39 egg yolk AdvReac Diarrhea Unverified 10/03/22 15:39 Home Medications Medication Instructions Recorded Confirmed Type amlodipine 10 mg tablet 5 mg PO DAILY 10/03/22 10/03/22 History aspirin 81 mg tablet,delayed 81 mg PO DAILY 10/03/22 10/03/22 History release atorvastatin 80 mg tablet 80 mg PO DAILY 10/03/22 10/03/22 History cholecalciferol (vitamin D3) 25 25 mcg PO DAILY 10/03/22 10/03/22 History mcg (1,000 unit) capsule ezetimibe 10 mg tablet 10 mg PO QAM 10/03/22 10/03/22 History insulin aspar prot-insulin aspart 30 unit subcut QPM 10/03/22 10/03/22 History 100 unit/mL (70-30) subcutaneous pen (Novolog Mix 70-30FlexPen U-100) insulin aspar prot-insulin aspart 40 unit subcut QAM 10/03/22 10/03/22 History 100 unit/mL (70-30) subcutaneous pen (Novolog Mix 70-30FlexPen U-100) lisinopril 40 mg tablet 40 mg PO DAILY 10/03/22 10/03/22 History potassium chloride 20 mEq 20 meq PO QAM 10/03/22 10/03/22 History tablet,extended release(part/cryst) semaglutide 2 mg/dose (8 mg/3 mL) 2 mg subcut WK 10/03/22 10/03/22 History subcutaneous pen injector (Ozempic) sildenafil 50 mg tablet 50 mg PO DAILY PRN Erectile 10/03/22 10/03/22 History Dysfunction torsemide 20 mg tablet 20 mg PO DAILY 10/03/22 10/03/22 History vitamin E 400 unit tablet 400 unit PO DAILY 10/03/22 10/03/22 History Patient History Medical History CKD (chronic kidney disease), stage IV Diabetes mellitus, type II HTN (hypertension) JACBO (obstructive sleep apnea) [place] [facility] [place] of [place]roidectomy 2009 Family History Father , age 90 with prostate cancer Prostate cancer Mother , age 67 of congestive heart failure Heart disease Other Diabetes Social History (Updated 10/04/22 @ 09:47 by Deangelo Liao MD) Smoking Status: Former smoker Age Started Using Tobacco: 12; Age Quit Using Tobacco: 35; packs per day: 1; Hx Alcohol Use: No Hx Substance Use: No Preferred Language: [employer] Member Required: No Beliefs That Will Affect Care: None Current Living Situation: Spouse current occupational status: retired 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 [employer] Feels Safe at Home: Yes Assistive Devices: Cane Review of Systems Constitutional: no fever, no fatigue and no weakness Eyes: no diplopia, no eye pain and no worsening vision Ear, Nose, Mouth, Throat: no ear pain, no tinnitus, no hearing loss, no dizziness, no snoring, no hoarseness and no dysphagia Respiratory: no cough and no dyspnea Cardiovascular: no chest pain, no palpitations and no lightheadedness Gastrointestinal: no abdominal pain, no nausea and no vomiting Musculoskeletal: no back pain, no neck pain, no radicular pain, no joint pain and no myalgia Integumentary: no rash and no lesions Neurologic: + gait abnormality and + localized weakness; no generalized weakness, no tingling, no numbness, no tremor(s), no abnormal movements, no headache(s), no abnormal speech, no confusion and no memory loss Psychiatric: no depression, no irritability, no anxiety, no difficulty concentrating, no confusion and no hallucinations Endocrine: no fatigue and no flushing Hematologic / Lymphatic: no easy bleeding and no easy bruising Allergy / Immunological: no urticaria and no problem reported Exam (Neuro) Physical Exam: The patient is right-handed. The patient is awake, alert, and attentive. Speech is normal without any aphasia or dysarthria. The patient can name objects, repeat phrases, and has normal spontaneous speech. Mentation and thought processes are intact, with orientation to person, place and time, and normal fund of knowledge. Attention and concentration are normal. Mood and affect are normal and appropriate. General appearance and grooming are normal. Short and long-term memory are intact. Pupils are 3 mm bilaterally and reactive to light. Extraocular eye muscles are intact without nystagmus. Visual acuity and visual guerrier seem normal grossly to confrontation. There are no deficits to sensation in the face in all 3 distributions of the fifth cranial nerve bilaterally. Corneal reflexes are positive bilaterally. Facial strength and symmetry was normal bilaterally. Hearing seems normal bilaterally. Palate moves well without asymmetry. There is normal sternocleidomastoid and trapezius (shoulder shrug) strength bilaterally. Tongue is midline with good strength bilaterally. Neck has a full range of motion without discomfort. There are no cervical bruits bilaterally. There are no cranial or ocular bruits. Heart is without murmur. There is a regular rhythm and rate. Cervical, thoracic, and lumbar spine are nontender to palpation. Gait was not tested and stance sitting up in bed was rather poor for him to maintain With outstretched arms there is drift on the left. There are no resting, pos tural, or action tremors. There is no ataxia with finger to nose testing. There is Decreased facility in clumsiness in the left hand compared to the right which was normal. There was drift in the left leg. No other abnormal involuntary movements are noted. Motor strength is 5/5 diffusely In the right arm and leg both proximally and distally. In the left arm strength is 4-/ 5 both proximally and distally. In the left leg, strength is 4+/5 diffusely. The limbs have good tone without rigidity or spasticity. There is no atrophy noted in the muscles. Muscle bulk is normal, there is no tenderness to palpation, no myotonia to percussion, and no fasciculations seen. Sensory examination is intact to touch and pin throughout all 4 limbs diffusely. Reflexes are 2/4 in the Right biceps, triceps, brachioradialis, quadriceps, and Achilles tendons. the left arm and leg reflexes are trace to absent. There is no clonus bilaterally. Toes are downgoing with plantar stimulation On the right and upgoing on plantar stimulation on the left. Peripheral pulses are present and of normal quality distally in all 4 limbs. There is no peripheral edema noted in the limbs. Results & Data Vital Signs (Past 12 Hours) Vital Signs Temp Pulse Pulse Resp BP Pulse Ox O2 Del Method 10/04/22 08:00 36.8 C 89 18 169/87 H 93 Room Air 10/04/22 07:17 82 10/04/22 04:35 36.9 C 86 18 165/80 H 93 Room Air 10/04/22 00:00 84 10/03/22 23:14 36.8 C 82 16 163/75 H 93 Room Air PG Care Time/CCT Total # of Minutes Spent Total Time Spent with Patient: Total time spent is greater than 50% in coordination of care (as documented) at patient's floor/unit and/or counseling patient: Coding Level of Care Code 90600 INT INP/OBS CARE 3/75MIN Diagnoses Acute CVA (cerebrovascular accident) I63.9 Acute left hemiparesis G81.94 Time Spent (min) 75
[2022-10-04] MEDS ORDERED: CLOPIDOGREL BISULFATE 75 MG TAB PO ONE (10:05)
[2022-10-04] MEDS ORDERED: LABETALOL HCL IV 5 MG/ML 20ML IV PRN (12:25)
[2022-10-04] MEDS ORDERED: POTASSIUM CHLORIDE CRTAB 20 MEQ TABCR PO STA (12:31)
--- NOTE | 2022-10-04 13:14 | Hospitalist Progress Note ---
Date of Service October 04, 2022 Assessment & Plan (1) Left-sided weakness: (2) Diabetes mellitus, type II: (3) HTN (hypertension): (4) CKD (chronic kidney disease), stage IV: (5) JACOB (obstructive sleep apnea): Plan 72-year-old male with PMH of type 2 diabetes, CKD 4, type 2 diabetes, dyslipidemia, JACOB, h/o carotid artery dissection, hypertension, pancreatic cyst and other medical problems listed below who presents with intermittent left upper extremity weakness over the past week. Acute CVA Left hemiparesis Weakness and clumsiness of L hand for over 1 week, subtle LLE weakness noted over past few days Given aspirin in the ED Head CT with no acute intracranial hemorrhage, midline shift or acute territorial infarct, involutional changes with chronic microvascular ischemic disease, age-indeterminate infarct within the L lentiform nucleus/external capsule, 3 cm MRI Brain showed acute/subacute lacunar-type infarct in the right harris radiata Continue ASA 81mg. Started on plavix 75mg daily. Will do DAPT for 3 weeks then plavix monotherapy afterwards Patient already on Atorvastatin 80mg daily MRA brain w/o co TTE showed mild conc LVH, EF 60-65%, GI DD, AV sclerosis moderate. No ASD A1c is 6.7 Hypertension Elevated 212/87 on presentation Chlorthalidone and lasix recently discontinued, amlodipine decreased Continue to hold losartan and torsemide for now Continue nifedipine. Fish Liver Sorter on board as well helping with BP management with patient's CKD On IV labetalol DM II A1c 6.8 in July A1c 6.7 today Basal/bolus insulin while in-patient per protocol BSG AC HS CKD IV Cr 3.9 today, still making urine Progressively worsening Cr per outpatient labs over the past couple of months previous Cr baseline ~mid 3s Replete hypokalemia Fish Liver Sorter on board + Covid PCR on admission Mild symptoms. Reports mild cough No hypoxia CXR did not show any acute abnormalities Continue precautions and monitor JACOB DVT Ppx: SQ heparin Code status: FULL PCP: Yong Vega spent a total of 50 minutes coordinating, documenting, and providing care for this patient excluding time spent in the performance of separately billed services. Admission and Anticipated Discharge Date Admission Date: October 03, 2022 Subjective Patient seen and examined Reported he had left sided weakness about 1-2 weeks ago that resolved Then started having symptoms again yesterday prior to presentation He reports numbness in left hand Reports mild cough. Reported some rhinorrhea, sorethroat about a week or so ago. Denied any shortness of breath, chest pain Denied nausea, vomiting, abd pain, diarrhea, constipation Denied fever, chills Denied dysuria, freq, urgency Physical Exam Constitutional: + well hydrated and + obese; no acute distress Eyes: PERRL, conjunctivae normal, anicteric sclerae ENMT: external ear and nose normal, oropharynx normal Respiratory: normal respiratory effort, lungs clear to auscultation Cardiovascular: Rate/Rhythm: regular rate and regular rhythm S1 S2 Gastrointestinal (Abdomen): normal bowel sounds, soft, nontender, no hepatosplenomegaly Musculoskeletal: +pedal edema Neurologic: PERRL, EOMI, accommodation nl, no face palsy, no dysarthria +LUE drift Power is reduced 4/5 in LUE and LLE Psychiatric: A+Ox3, euthymic affect Results & Data Results & Data Vital Signs (Past 12 Hours) Vital Signs Temp Pulse Pulse Resp BP Pulse Ox O2 Del Method 10/04/22 12:21 37.1 C 83 16 150/79 H 97 Room Air 10/04/22 08:00 36.8 C 89 18 169/87 H 93 Room Air 10/04/22 07:17 82 10/04/22 04:35 36.9 C 86 18 165/80 H 93 Room Air Laboratory Results Abnormal lab results 10/03/22 10/03/22 10/04/22 Range/Units 16:15 20:18 07:31 RBC (4.70-6.10) M/uL Hgb (14.0-18.0) g/dl Hct (42.0-52.0) % Sodium 146 H (136-145) mmol/L Potassium 3.1 L (3.5-5.1) mmol/L Chloride 111 H (98-107) mmol/L BUN 40 H (6-23) mg/dl Creatinine 3.96 H (0.6-1.4) mg/dl Glucose 121 H (70-99(Fasting)) mg/dl POC Glucose 129 H 105 H (70-99) mg/dl Hemoglobin A1c (4.5-5.6) % Calcium 8.2 L (8.6-10.3) mg/dl Triglycerides 283 H (0-150) mg/dl VLDL Cholesterol, Calc 57 H (0-30) mg/dl 10/04/22 10/04/22 10/04/22 Range/Units 07:31 07:31 07:50 RBC 4.00 L (4.70-6.10) M/uL Hgb 11.3 L (14.0-18.0) g/dl Hct 33.4 L (42.0-52.0) % Sodium (136-145) mmol/L Potassium (3.5-5.1) mmol/L Chloride (98-107) mmol/L BUN (6-23) mg/dl Creatinine (0.6-1.4) mg/dl Glucose (70-99(Fasting)) mg/dl POC Glucose 137 H (70-99) mg/dl Hemoglobin A1c 6.7 H (4.5-5.6) % Calcium (8.6-10.3) mg/dl Triglycerides (0-150) mg/dl VLDL Cholesterol, Calc (0-30) mg/dl 10/04/22 Range/Units 11:52 RBC (4.70-6.10) M/uL Hgb (14.0-18.0) g/dl Hct (42.0-52.0) % Sodium (136-145) mmol/L Potassium (3.5-5.1) mmol/L Chloride (98-107) mmol/L BUN (6-23) mg/dl Creatinine (0.6-1.4) mg/dl Glucose (70-99(Fasting)) mg/dl POC Glucose 111 H (70-99) mg/dl Hemoglobin A1c (4.5-5.6) % Calcium (8.6-10.3) mg/dl Triglycerides (0-150) mg/dl VLDL Cholesterol, Calc (0-30) mg/dl
--- NOTE | 2022-10-04 13:18 | Pharmacy Report ---
- Date of Service October 04, 2022 - Pharmacy CVA/TIA Medication Review Medications to Prevent Stroke handout has been added to the patients discharge packet. Antiplatelet(s) * Aspirin 81 mg PO daily + clopidogrel 75 mg PO daily x 3 weeks, then clopidogrel 75 mg PO daily Cholesterol * High intensity statin: atorvastatin 40 mg daily DVT Prophylaxis * Heparin SQ Therapeutic Anticoagulation * No history of Afib/Aflutter noted Type 2 Diabetes * Patient has T2DM and patient is prescribed semaglutide
[2022-10-04 13:50] LABS: Estimated Average Glucose 146 mg/dl; Hemoglobin A1C 6.7 % (4.5-5.6)
--- NOTE | 2022-10-04 19:15 | Magnetic Resonance Report ---
MR ANGIOGRAM OF THE BRAIN CLINICAL HISTORY: Stroke. COMPARISON STUDY: MRI of the brain dated 10/03/2022.. TECHNIQUE: 3-D [id number] MR angiography of the intracranial circulation is performed. 3-D tumble views are created and assessed. IV contrast was not administered for this examination. The examinati on is degraded by motion artifact. FINDINGS: The internal carotid arteries are widely patent bilaterally. The anterior and middle cerebr al arteries are patent. Apparent decrease in flow within the right middle cerebral artery is related to motion artifact. The vertebrobasilar system and posterior cerebral arteries are patent. The righ t vertebral artery is dominant. The left vertebral artery is diminutive and difficult to visualize. T his likely terminates as the PICA. There is a left posterior commuting artery. There is no aneurysm, high-grade stenosis, or focal vessel cutoff seen throughout the intracranial circulation. IMPRESSION: Unremarkable MR angiogram of the brain. ACT 112: Negative or not required by law. Electronically signed by: Ishan Salmon M.D. 10/04/2022 7:14 PM
[2022-10-05] MEDS: HEPARIN SOD 5,000 UNIT/0.5 ML VIAL SQ SCH ×3 (06:19→21:05)
[2022-10-05 08:17] LABS: BUN Creatinine Ratio 10.7 (10-20); Calcium 8.3 mg/dl (8.6-10.3); Creatinine Clr Calc Pharmacy 22.6 ml/min; Est GFR (African American) 16.3 ml/min; Est GFR (Non-African American) 14.1 ml/min; Phosphorus 4.3 mg/dl (2.5-4.9); Potassium 3.7 mmol/L (3.5-5.1)
[2022-10-05] MEDS: EZETIMIBE 10 MG TABLET PO SCH (09:00)
[2022-10-05] MEDS: NIFEdipine EXTENDED REL 30 MG TABCR PO SCH (09:00)
[2022-10-05] MEDS: CHOLECALCIFEROL 1,000 UNITS 25 MCG TAB PO SCH (09:00)
[2022-10-05] MEDS: ASPIRIN 81 MG ECTAB PO SCH (09:00)
[2022-10-05] MEDS: ATORVASTATIN 40 MG TAB PO SCH (09:00)
[2022-10-05] MEDS: TOCOPHERYL, DL-ALPHA 400 UNITS 180 MG CAP PO SCH (09:00)
[2022-10-05] MEDS: CLOPIDOGREL BISULFATE 75 MG TAB PO SCH (09:01)
[2022-10-05] MEDS: POTASSIUM CHLORIDE CRTAB 20 MEQ TABCR PO SCH ×3 (09:01→16:54)
[2022-10-05] MEDS: INSULIN ASPART PER UNIT CHARGE SC SCH ×4 (09:04→20:40)
[2022-10-05] MEDS: LANTUS PER UNIT CHARGE SQ SCH ×2 (09:05→21:00)
[2022-10-05 09:31] LABS: Hematocrit (blood only) 33.6 % (42.0-52.0); Hemoglobin 11.4 g/dl (14.0-18.0); Mean Corpuscular Hemoglobin 28.4 pg (25.0-34.0); Mean Corpuscular Hgb Conc 33.9 g/dL (32.0-36.0); Mean Corpuscular Volume 83.8 fL (80.0-100.0); Mean Platelet Volume 10.5 fL (9.4-12.4); Nucleated RBC # (auto) 0.05 K/uL (0-0.12); Nucleated RBC % (auto) 0.5 %; Platelet Count 303 K/uL (130-400); RDW Coefficient of Variation 13.7 % (11.5-14.5); RDW Standard Deviation 42.3 fL (36.4-46.3); Red Blood Count 4.01 M/uL (4.70-6.10); White Blood Count 9.57 K/ul (4.8-10.8)
--- NOTE | 2022-10-05 11:26 | Nephrology Progress Note ---
Date of Service October 05, 2022 Assessment & Plan (1) HTN (hypertension): Plan: Goal MAP for now is 95-100. Current MAP is 107, acceptable. -continue nifedipine standing -wrote for standing labetalol 5 mg IV as needed MAP greater than 110 every 4 hours Continue to hold torsemide and losartan (2) CKD (chronic kidney disease), stage IV: Plan: rapidly progressive CKD 4; high risk to need dialysis next 12 -18 mos if not sooner. CKD attributed to hypertension, diabetes, class III obesity historic ally. Creatinine was mid threes early July, up to 22 September 4. Would not consider this acute kidney injury necessarily but progressive CKD. Concern for nephrotic syndrome emerging given that albuminuria worsened recently from 3 g daily in 2021 to 8 g daily in August. Patient follows with Dr. Stevens and was to see him this week but is hospitalized instead. Note also albumin is only 2.7 after hist orically being near normal as recently as late 2021 -daily BMP -close OP f/u; including close follow-up with CKD mattress spring encaser and ESRD education Torsemide and ARB on hold for now Potassium 3.7 today without recent administration of diuretics: continue standing K 20 mEq po Not currently on renal diet and none indicated so far phos is wnl -no hx of formal OP proteinuria eval > consider as OP or IP; w/ acute stroke not a candidate for immunosuppressive therapy imminently >>for volume overload did lasix 80 mg iv x 1 and gave K x 2 doses extra 20 mEq each >>for CKD > ESRD education tomorrow by [facility] nurse (3) Acute CVA (cerebrovascular accident): Plan: per neuro and primary service Admission and Anticipated Discharge Date Admission Date: October 03, 2022 Subjective no acut einterval events. feeling a bit better. interested in home modalities and learning more about dialysis diet. no sob; still L sided weak; no n/v. slight edema at least some chronic Review of Systems Review of Systems: All systems reviewed & are unremarkable except as noted in Subjective Physical Exam Constitutional: well developed, well nourished, + morbidly obese and cooperative; no acute distress Eyes: EOM intact bilaterally ENMT: Ears: no external ear abnormality Nose: no external nose abnormality Mouth: + dry oral mucous membranes Neck: no nuchal rigidity Respiratory: normal respiratory effort Auscultation: + diminished lung sounds Cardiovascular: Rate/Rhythm: regular rate and regular rhythm Extremities: + edema Gastrointestinal (Abdomen): Inspection/Auscultation: normal bowel sounds Percussion/Palpation: abdomen soft; abdomen nontender Musculoskeletal: Extremities: + abnormal strength (L side weak) Skin: no rashes, warm and dry Results & Data Vital Signs (Past 12 Hours) Vital Signs Temp Pulse Pulse Resp BP Pulse Ox O2 Del Method 10/05/22 07:38 37.0 C 83 18 156/82 H 91 Room Air 10/05/22 03:31 36.7 C 82 20 161/85 H 90 Room Air 10/04/22 23:59 84 Laboratory Results 10/05/22 09:00 10/05/22 07:21
[2022-10-05] MEDS ORDERED: FUROSEMIDE 40 MG/4 ML VIAL IV ONE (15:38)
[2022-10-05] MEDS ORDERED: POTASSIUM CHLORIDE CRTAB 20 MEQ TABCR PO SCH (15:40)
--- NOTE | 2022-10-05 18:48 | Hospitalist Progress Note ---
Date of Service October 05, 2022 Assessment & Plan (1) Left-sided weakness: (2) Diabetes mellitus, type II: (3) HTN (hypertension): (4) CKD (chronic kidney disease), stage IV: (5) JACOB (obstructive sleep apnea): Plan Patient is a 72 yr male with PMH of type 2 diabetes, CKD 4, type 2 diabetes, dyslipidemia, JACOB, h/o carotid artery dissection, hypertension, pancreatic cyst and other medical problems listed below who presents with intermittent left upper extremity weakness over the past week. Acute CVA Left hemiparesis Weakness and clumsiness of L hand for over 1 week, subtle LLE weakness noted over past few days -Head CT with no acute intracranial hemorrhage, midline shift or acute territorial infarct, involutional changes with chronic microvascular ischemic disease, age-indeterminate infarct within the L lentiform nucleus/external capsule, 3 cm -MRI Brain showed acute/subacute lacunar-type infarct in the right harris radiata --MRA Head:Unremarkable MR angiogram of the brain. TTE showed mild conc LVH, EF 60-65%, GI DD, AV sclerosis moderate. No ASD A1c is 6.7 Continue ASA 81mg. Started on plavix 75mg daily. Will do DAPT for 3 weeks then plavix monotherapy afterwards Continue Atorvastatin 80mg daily Appreciate neurology input Plan to discharge to rehab facility as able Hypertension Chlorthalidone and lasix recently discontinued, amlodipine decreased Torsemide, lisinopril held due to renal insufficiency Continue nifedipine Appreciate nephrology input On IV labetalol PRN DM II A1c 6.8 in July A1c 6.7 Basal/bolus insulin while in-patient per protocol BSG AC HS CKD IV Progressively worsening Cr per outpatient labs over the past couple of months previous Cr baseline ~mid 3s Replete electrolytes as needed Nephrology on board Cr 4.0 Today COVID 19 Infection H/O JACOB No hypoxia CXR did not show any acute abnormalities Continue precautions and monitor Conservative management DVT Px: SQ heparin CODE STATUS Full code Disposition Rehab as able Admission and Anticipated Discharge Date Admission Date: October 03, 2022 Subjective Patient is seen and examined at bedside Left-sided weakness slightly better per patient Has minimal cough Denies any chest pain, dyspnea, dizziness, nausea, abdominal pain Discussed with patient's family at bedside Saturating well on room air Waiting for rehab placement Review of Systems Review of Systems: All systems reviewed & are unremarkable except as noted in Subjective Physical Exam Physical Exam: Physical Exam: Vitals signs as noted above General Appearance:Morbidly Obese, no apparent distress Head: normocephalic, Atraumatic Eyes: normal inspection, EOMI Neck: supple, Trachea midline Respiratory/Chest: Decreased breath sounds, CTA, No accessory muscle use Cardiovascular: S1, S2, No murmur Abdomen/GI:Soft, Non tender, Bowel sounds present Extremities/Musculoskeletal:normal inspection, 1+ Pedal edema Neurologic/Psych:AAOX3, left upper and lower extremity 4/5 Skin: normal color, warm Results & Data Results & Data Vital Signs (Past 12 Hours) Vital Signs Temp Pulse Resp BP Pulse Ox O2 Del Method 10/05/22 16:32 36.9 C 85 16 166/91 H 97 Room Air 10/05/22 11:34 36.8 C 78 18 147/76 H 95 Room Air 10/05/22 07:38 37.0 C 83 18 156/82 H 91 Room Air Laboratory Results Short CBC 10/05/22 10/05/22 Range/Units 07:21 09:00 WBC Cancelled 9.57 Hgb Cancelled 11.4 L Hct Cancelled 33.6 L Plt Count Cancelled 303 BMP 10/05/22 07:21 Sodium 145 Potassium 3.7 Chloride 112 H Carbon Dioxide 23 BUN 43 H Creatinine 4.01 H Glucose 117 H Calcium 8.3 L
[2022-10-06] MEDS: HEPARIN SOD 5,000 UNIT/0.5 ML VIAL SQ SCH ×3 (06:03→20:53)
[2022-10-06 06:41] LABS: Hematocrit (blood only) 35.9 % (42.0-52.0); Hemoglobin 11.9 g/dl (14.0-18.0); Mean Corpuscular Hemoglobin 28.3 pg (25.0-34.0); Mean Corpuscular Hgb Conc 33.1 g/dL (32.0-36.0); Mean Corpuscular Volume 85.3 fL (80.0-100.0); Mean Platelet Volume 9.9 fL (9.4-12.4); Platelet Count 309 K/uL (130-400); RDW Coefficient of Variation 13.5 % (11.5-14.5); Red Blood Count 4.21 M/uL (4.70-6.10); White Blood Count 11.19 K/ul (4.8-10.8)
[2022-10-06 06:54] LABS: BUN Creatinine Ratio 10.6 (10-20); Calcium 8.5 mg/dl (8.6-10.3); Creatinine Clr Calc Pharmacy 21.1 ml/min; Est GFR (African American) 14.9 ml/min; Est GFR (Non-African American) 12.8 ml/min; Potassium 3.4 mmol/L (3.5-5.1)
[2022-10-06] MEDS: INSULIN ASPART PER UNIT CHARGE SC SCH ×4 (08:30→20:50)
[2022-10-06] MEDS: LANTUS PER UNIT CHARGE SQ SCH ×2 (08:31→20:52)
[2022-10-06] MEDS: ATORVASTATIN 40 MG TAB PO SCH (08:34)
[2022-10-06] MEDS: POTASSIUM CHLORIDE CRTAB 20 MEQ TABCR PO SCH ×2 (08:34→20:53)
[2022-10-06] MEDS: EZETIMIBE 10 MG TABLET PO SCH (08:34)
[2022-10-06] MEDS: TOCOPHERYL, DL-ALPHA 400 UNITS 180 MG CAP PO SCH (08:34)
[2022-10-06] MEDS: NIFEdipine EXTENDED REL 30 MG TABCR PO SCH (08:35)
[2022-10-06] MEDS: CLOPIDOGREL BISULFATE 75 MG TAB PO SCH (08:35)
[2022-10-06] MEDS: CHOLECALCIFEROL 1,000 UNITS 25 MCG TAB PO SCH (08:35)
[2022-10-06] MEDS: ASPIRIN 81 MG ECTAB PO SCH (08:35)
--- NOTE | 2022-10-06 10:42 | Nephrology Progress Note ---
Date of Service October 06, 2022 Assessment & Plan (1) HTN (hypertension): Plan: goal is sbp in 140-150s, ultimately 130; this assumes permissive HTN no longer indicated -resume OP amlodipine >resume OP torsemide at higher dose 40 mg bid17 >increase K 20 mEq bid -continue to hold lisinopril (2) CKD (chronic kidney disease), stage IV: Plan: rapidly progressive CKD 4; high risk to need dialysis next 12 -18 mos if not sooner. CKD attributed to hypertension, diabetes, class III obesity historicall y. Creatinine was mid threes early July, up to 22 September 4. Would not consider this acute kidney injury necessarily but progressive CKD. Concern for nephrotic syndrome emerging given that albuminuria worsened recently from 3 g daily in 2021 to 8 g daily in August. Patient follows with Dr. Stevens and was to see him this week but is hospitalized instead. 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 and ESRD education [facility] on hold for now Potassium 3.4 today after yesterday's administration of diuretics: K dose upped Not currently on renal diet and none indicated so far phos is wnl -no hx of formal OP proteinuria eval > consider as OP or IP; w/ acute stroke not a candidate for immunosuppressive therapy imminently >>for volume overload on 10/05 had lasix 80 mg iv x 1 and gave K x 2 doses extra 20 mEq each >>for CKD > ESRD education today by [facility] nurse (3) Acute CVA (cerebrovascular accident): Plan: per neuro and primary service Admission and Anticipated Discharge Date Admission Date: October 03, 2022 Subjective no complaints; ongoing L sided leg/arm weakness; edema unchanged; no sob; no n/v; getting up carefully to toilet w/o asst Review of Systems Review of Systems: All systems reviewed & are unremarkable except as noted in Subjective Physical Exam Constitutional: well developed, well nourished, + morbidly obese and cooperative; no acute distress Eyes: EOM intact bilaterally ENMT: Ears: no external ear abnormality Nose: no external nose abnormality Mouth: + dry oral mucous membranes Neck: no nuchal rigidity Respiratory: normal respiratory effort Auscultation: + diminished lung s ounds Cardiovascular: Rate/Rhythm: regular rate and regular rhythm Extremities: + edema Gastrointestinal (Abdomen): Inspection/Auscultation: normal bowel sounds Percussion/Palpation: abdomen soft; abdomen nontender Musculoskeletal: Extremities: strength 5/5 throughout and + abnormal strength (L side weak) Skin: no rashes, warm and dry Results & Data Vital Signs (Past 12 Hours) Vital Signs Temp Pulse Pulse Resp BP Pulse Ox O2 Del Method 10/06/22 08:15 36.6 C 82 16 165/89 H 94 Room Air 10/06/22 04:21 76 162/83 H 10/06/22 03:37 36.7 C 79 20 170/83 H 91 Room Air 10/05/22 23:00 76 10/05/22 23:00 36.7 C 74 18 160/87 H 91 Room Air Laboratory Results 10/06/22 06:17 10/06/22 06:17
[2022-10-06] MEDS: TORSEMIDE 10 MG TAB PO SCH (16:56)
--- NOTE | 2022-10-06 17:16 | Ultrasound Report ---
LEFT UPPER EXTREMITY VENOUS DOPPLER ULTRASOUND CLINICAL HISTORY: Left upper extremity swelling. COMPARISON STUDY: No previous studies for comparison. TECHNIQUE: Sonography of the deep venous system of the left upper extremity was performed. FINDINGS: This exam was mildly compromised given difficulty positioning. However, no venous thrombus was identified within the left upper extremity. The left internal jugular, subclavian, axillary, brac hial, radial, ulnar, cephalic and basilic veins were patent. IMPRESSION: No deep venous thrombus within the left upper extremity. ACT 112: Negative or not required by law. Electronically signed by: Rafael Castro M.D. 10/06/2022 5:14 PM
--- NOTE | 2022-10-06 19:22 | Hospitalist Progress Note ---
Date of Service October 06, 2022 Assessment & Plan (1) Left-sided weakness: (2) Diabetes mellitus, type II: (3) HTN (hypertension): (4) CKD (chronic kidney disease), stage IV: (5) JACOB (obstructive sleep apnea): Plan Patient is a 72 yr male with PMH of type 2 diabetes, CKD 4, type 2 diabetes, dyslipidemia, JACOB, h/o carotid artery dissection, hypertension, pancreatic cyst and other medical problems listed below who presents with intermittent left upper extremity weakness over the past week. Acute CVA Left hemiparesis Weakness and clumsiness of L hand for over 1 week, subtle LLE weakness noted over past few days -Head CT with no acute intracranial hemorrhage, midline shift or acute territorial infarct, involutional changes with chronic microvascular ischemic disease, age-indeterminate infarct within the L lentiform nucleus/external capsule, 3 cm -MRI Brain showed acute/subacute lacunar-type infarct in the right harris radiata --MRA Head:Unremarkable MR angiogram of the brain. TTE showed mild conc LVH, EF 60-65%, GI DD, AV sclerosis moderate. No ASD A1c is 6.7 Continue ASA 81mg. Started on plavix 75mg daily. Will do DAPT for 3 weeks then plavix monotherapy afterwards Continue Atorvastatin 80mg daily Appreciate neurology input Rehab when accepted Left upper extremity swelling ? IV infiltration Doppler:No deep venous thrombus within the left upper extremity. DC IV line from E Monitor Hypertension Chlorthalidone and lasix recently discontinued, amlodipine decreased Amlodipine resume Lisinopril held for now Also on torsemide 60 mg twice daily Appreciate nephrology input On IV labetalol PRN DM II A1c 6.8 in July A1c 6.7 Basal/bolus insulin while in-patient per protocol BSG AC HS CKD IV Progressively worsening Cr per outpatient labs over the past couple of months previous Cr baseline ~mid 3s Replete electrolytes as needed Nephrology on board Cr 4.3 Today COVID 19 Infection H/O JACOB No hypoxia CXR did not show any acute abnormalities Continue precautions and monitor Conservative management DVT Px: SQ heparin CODE STATUS Full code Disposition Rehab as able Admission and Anticipated Discharge Date Admission Date: October 03, 2022 Subjective Patient is seen and examined at bedside Left sided weakness about the same as yesterday Patient noticed left upper extremity swelling associated with some discomfort No significant cough today Denies any chest pain, dyspnea, dizziness, nausea, abdominal pain Waiting for rehab placement Review of Systems Review of Systems: All systems reviewed & are unremarkable except as noted in Subjective Physical Exam Physical Exam: Physical Exam: Vitals signs as noted above General Appearance:Morbidly Obese, no apparent distress Head: normocephalic, Atraumatic Eyes: normal inspection, EOMI Neck: supple, Trachea midline Respiratory/Chest: Decreased breath sounds, CTA, No accessory muscle use Cardiovascular: S1, S2, No murmur Abdomen/GI:Soft, Non tender, Bowel sounds present Extremities/Musculoskeletal:normal inspection, 1+ Pedal edema, left upper extremity swelling Neurologic/Psych:AAOX3, left upper and lower extremity 4/5 Skin: normal color, warm Results & Data Results & Data Vital Signs (Past 12 Hours) Vital Signs Temp Pulse Resp BP Pulse Ox O2 Del Method 10/06/22 15:32 36.8 C 77 16 135/74 95 Room Air 10/06/22 11:50 36.4 C L 75 18 147/82 H 94 Room Air 10/06/22 08:15 36.6 C 82 16 165/89 H 94 Room Air Laboratory Results Short CBC 10/06/22 Range/Units 06:17 WBC 11.19 H (4.8-10.8) K/ul Hgb 11.9 L (14.0-18.0) g/dl Hct 35.9 L (42.0-52.0) % Plt Count 309 (130-400) K/uL BMP 10/06/22 06:17 Sodium 146 H Potassium 3.4 L Chloride 111 H Carbon Dioxide 24 BUN 46 H Creatinine 4.33 H D Glucose 116 H Calcium 8.5 L
[2022-10-07] MEDS: HEPARIN SOD 5,000 UNIT/0.5 ML VIAL SQ SCH ×3 (05:48→20:53)
[2022-10-07 06:48] LABS: BUN Creatinine Ratio 11.4 (10-20); Calcium 8.8 mg/dl (8.6-10.3); Creatinine Clr Calc Pharmacy 20.2 ml/min; Est GFR (African American) 14.3 ml/min; Est GFR (Non-African American) 12.3 ml/min; Potassium 3.8 mmol/L (3.5-5.1)
[2022-10-07] MEDS: amLODIPine BESYLATE 5 MG TAB PO SCH (07:45)
[2022-10-07] MEDS: POTASSIUM CHLORIDE CRTAB 20 MEQ TABCR PO SCH ×3 (07:45→20:53)
[2022-10-07] MEDS: TORSEMIDE 10 MG TAB PO SCH (07:45)
[2022-10-07] MEDS: EZETIMIBE 10 MG TABLET PO SCH (07:45)
[2022-10-07] MEDS: CHOLECALCIFEROL 1,000 UNITS 25 MCG TAB PO SCH (07:46)
[2022-10-07] MEDS: ASPIRIN 81 MG ECTAB PO SCH (07:46)
[2022-10-07] MEDS: CLOPIDOGREL BISULFATE 75 MG TAB PO SCH (07:46)
[2022-10-07] MEDS: ATORVASTATIN 40 MG TAB PO SCH (07:46)
[2022-10-07] MEDS: TOCOPHERYL, DL-ALPHA 400 UNITS 180 MG CAP PO SCH (07:47)
[2022-10-07] MEDS: INSULIN ASPART PER UNIT CHARGE SC SCH ×4 (08:57→20:32)
[2022-10-07] MEDS: LANTUS PER UNIT CHARGE SQ SCH ×2 (08:57→20:51)
--- NOTE | 2022-10-07 11:28 | Nephrology Progress Note ---
Date of Service October 07, 2022 Assessment & Plan (1) HTN (hypertension): Plan: goal is sbp in 140-150s, ultimately 130; this assumes permissive HTN no longer indicated; blood pressure remains uncontrolled. Given change in renal function and ongoing volume overload and still uncontrolled blood pressure, he is likely to need dialysis soon and certainly needs ongoing diuresis right now. pt w/ nephrotic range proteinuria earlier this year, so blood pressure will likely be difficult to control -Continue amlodipine current dose >>started carvedilol 12.5 mg bid ->>stopped torsemide and started lasix 80 mg IV bid 17 >further increased K 20 mEq tid -continue to hold lisinopril -daily bmp (2) CKD (chronic kidney disease), stage IV: Plan: rapidly progressive CKD 4; high risk to need dialysis next days to weeks. CKD attributed to hypertension, diabetes, class III obesity historically. Creatin ine was mid threes early July, up to September 22. Would not consider this acute kidney injury necessarily but progressive CKD. Concern for nephrotic syndrome emerging given that albuminuria worsened recently from 3 g daily in 2021 to 8 g daily in August. Note also albumin is only 2.7 after historically being near normal as recently as late 2021. Patient wishes to do dialysis at [facility] if need arises and is interested in home modalities. - daily BMP - close OP f/u; including close follow-up with CKD case briefer and ESRD education ACEI on hold for now >>consulted vascular and d/w them >> he may well need TDC early next week >>consulted manager bench for oral supplements as indicated w/ hypoalbuminemia I spent > 20 minutes educating pt and today on dialysis modalities, dialysis access; interests as above. Not sure PD viable given adrenalectomy hx/abd surgery hx plus epigastric ventral wall defect. (3) Acute CVA (cerebrovascular accident): Plan: per neuro and primary service (4) 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: Plan: likeliest diabetic nephropathy > as above re BP /CKD mgt Admission and Anticipated Discharge Date Admission Date: October 03, 2022 Subjective No DVT left upper extremity; edema left upper extremity slightly improved; minimal change in this on his legs; denies shortness of breath; feels his left upper extremity dexterity slightly improved; voiding lots and easily Review of Systems Review of Systems: All systems reviewed & are unremarkable except as noted in Subjective Physical Exam Constitutional: well developed, well nourished, + morbidly obese and cooperative; no acute distress Eyes: EOM intact bilaterally ENMT: Ears: no external ear abnormality Nose: no external nose abnormality Mouth: + dry oral mucous membranes Neck: no nuchal rigidity Respiratory: normal respiratory effort Auscultation: + diminished lung sounds Cardiovascular: Rate/Rhythm: regular rate and regular rhythm Extremities: + edema Gastrointestinal (Abdomen): Inspection/Auscultation: normal bowel sounds Percussion/Palpation: abdomen soft; abdomen nontender Musculoskeletal: Extremities: strength 5/5 throughout and + abnormal strength (L side weak) Skin: no rashes, warm and dry Neurologic: Left arm weak\not as precise for finer movement Results & Data Vital Signs (Past 12 Hours) Vital Signs Temp Pulse Resp BP Pulse Ox O2 Del Method 10/07/22 08:00 Room Air 10/07/22 07:20 36.5 C 78 16 168/86 H 94 Room Air 10/07/22 03:13 36.7 C 83 20 168/82 H 93 Room Air Laboratory Results 10/06/22 06:17 10/07/22 05:59
[2022-10-07] MEDS: carvediloL 12.5 MG TAB PO SCH ×2 (12:07→18:43)
--- NOTE | 2022-10-07 18:34 | Hospitalist Progress Note ---
Date of Service October 07, 2022 Assessment & Plan (1) Left-sided weakness: (2) Diabetes mellitus, type II: (3) HTN (hypertension): (4) CKD (chronic kidney disease), stage IV: (5) JACOB (obstructive sleep apnea): Plan Patient is a 72 yr male with PMH of type 2 diabetes, CKD 4, type 2 diabetes, dyslipidemia, JACOB, h/o carotid artery dissection, hypertension, pancreatic cyst and other medical problems listed below who presents with intermittent left upper extremity weakness over the past week. Acute CVA Left hemiparesis Weakness and clumsiness of L hand for over 1 week, subtle LLE weakness noted over past few days -Head CT with no acute intracranial hemorrhage, midline shift or acute territorial infarct, involutional changes with chronic microvascular ischemic disease, age-indeterminate infarct within the L lentiform nucleus/external capsule, 3 cm -MRI Brain showed acute/subacute lacunar-type infarct in the right harris radiata --MRA Head:Unremarkable MR angiogram of the brain. TTE showed mild conc LVH, EF 60-65%, GI DD, AV sclerosis moderate. No ASD A1c is 6.7 Continue ASA 81mg. Started on plavix 75mg daily. Will do DAPT for 3 weeks then plavix monotherapy afterwards Continue Atorvastatin 80mg daily Appreciate neurology input Rehab as able Left upper extremity swelling ? IV infiltration Doppler:No deep venous thrombus within the left upper extremity. Swelling improving Continue diuretics Hypertension Chlorthalidone and lasix recently discontinued, amlodipine decreased Resumed amlodipine Started on carvedilol 12.5 mg twice daily Lisinopril held Torsemide changed to Lasix 80 mg IV twice daily Appreciate nephrology input DM II A1c 6.8 in July A1c 6.7 Basal/bolus insulin while in-patient per protocol BSG AC HS CKD IV Progressively worsening Cr per outpatient labs over the past couple of months previous Cr baseline ~mid 3s Replete electrolytes as needed Nephrology on board Cr 4.4 Today Vascular surgery consulted for TDC May eventually need to be initiated on dialysis COVID 19 Infection H/O JACOB No hypoxia CXR did not show any acute abnormalities Continue precautions and monitor Conservative management DVT Px: SQ heparin CODE STATUS Full code Disposition Rehab as able Admission and Anticipated Discharge Date Admission Date: October 03, 2022 Subjective Patient is seen and examined at bedside Left upper extremity edema slowly improving No new complaints Denies any cough today Left-sided weakness about the same as yesterday Saturating well on room air Also denies any chest pain, dyspnea, dizziness, nausea, abdominal pain Renal function worsening Review of Systems Review of Systems: All systems reviewed & are unremarkable except as noted in Subjective Physical Exam Physical Exam: Physical Exam: Vitals signs as noted above General Appearance:Morbidly Obese, no apparent distress Head: normocephalic, Atraumatic Eyes: normal inspection, EOMI Neck: supple, Trachea midline Respiratory/Chest: Decreased breath sounds, CTA, No accessory muscle use Cardiovascular: S1, S2, No murmur Abdomen/GI:Soft, Non tender, Bowel sounds present Extremities/Musculoskeletal:normal inspection, 1+ Pedal edema, left upper extremity swelling improving Neurologic/Psych:AAOX3, left upper and lower extremity 4/5 Skin: normal color, warm Results & Data Results & Data Vital Signs (Past 12 Hours) Vital Signs Temp Pulse Resp BP Pulse Ox O2 Del Method 10/07/22 16:41 36.9 C 70 22 170/83 H 97 Room Air 10/07/22 11:28 36.8 C 80 18 151/81 H 92 Room Air 10/07/22 08:00 Room Air 10/07/22 07:20 36.5 C 78 16 168/86 H 94 Room Air Laboratory Results [facility] 10/07/22 05:59 Sodium 143 Potassium 3.8 Chloride 108 H Carbon Dioxide 25 BUN 51 H Creatinine 4.47 H Glucose 124 H Calcium 8.8
[2022-10-07] MEDS: FUROSEMIDE 40 MG/4 ML VIAL IV SCH (18:45)
[2022-10-07 22:58] LABS: Magnesium 2.2 mg/dl (1.7-2.4)
[2022-10-08] MEDS: HEPARIN SOD 5,000 UNIT/0.5 ML VIAL SQ SCH ×3 (05:52→21:17)
[2022-10-08 07:06] LABS: BUN Creatinine Ratio 12.4 (10-20); Calcium 8.5 mg/dl (8.6-10.3); Creatinine Clr Calc Pharmacy 19.7 ml/min; Est GFR (African American) 13.8 ml/min; Est GFR (Non-African American) 11.9 ml/min; Potassium 3.7 mmol/L (3.5-5.1)
[2022-10-08 07:57] LABS: Magnesium 2.2 mg/dl (1.7-2.4)
[2022-10-08] MEDS: INSULIN ASPART PER UNIT CHARGE SC SCH ×4 (08:24→20:40)
[2022-10-08] MEDS: LANTUS PER UNIT CHARGE SQ SCH ×2 (08:25→20:40)
[2022-10-08] MEDS: amLODIPine BESYLATE 5 MG TAB PO SCH (08:59)
[2022-10-08] MEDS: CHOLECALCIFEROL 1,000 UNITS 25 MCG TAB PO SCH (08:59)
[2022-10-08] MEDS: carvediloL 12.5 MG TAB PO SCH ×2 (09:00→17:09)
[2022-10-08] MEDS: TOCOPHERYL, DL-ALPHA 400 UNITS 180 MG CAP PO SCH (09:00)
[2022-10-08] MEDS: CLOPIDOGREL BISULFATE 75 MG TAB PO SCH (09:01)
[2022-10-08] MEDS: ASPIRIN 81 MG ECTAB PO SCH (09:01)
[2022-10-08] MEDS: ATORVASTATIN 40 MG TAB PO SCH (09:01)
[2022-10-08] MEDS: POTASSIUM CHLORIDE CRTAB 20 MEQ TABCR PO SCH ×3 (09:01→21:18)
[2022-10-08] MEDS: EZETIMIBE 10 MG TABLET PO SCH (09:01)
[2022-10-08] MEDS: FUROSEMIDE 40 MG/4 ML VIAL IV SCH ×2 (09:04→17:09)
--- NOTE | 2022-10-08 17:01 | Hospitalist Progress Note ---
Date of Service October 08, 2022 Assessment & Plan (1) Left-sided weakness: (2) Diabetes mellitus, type II: (3) HTN (hypertension): (4) CKD (chronic kidney disease), stage IV: (5) JACOB (obstructive sleep apnea): Plan Patient is a 72 yr male with PMH of type 2 diabetes, CKD 4, type 2 diabetes, dyslipidemia, JACOB, h/o carotid artery dissection, hypertension, pancreatic cyst and other medical problems listed below who presents with intermittent left upper extremity weakness over the past week. Acute CVA Left hemiparesis Weakness and clumsiness of L hand for over 1 week, subtle LLE weakness noted over past few days -Head CT with no acute intracranial hemorrhage, midline shift or acute territorial infarct, involutional changes with chronic microvascular ischemic disease, age-indeterminate infarct within the L lentiform nucleus/external capsule, 3 cm -MRI Brain showed acute/subacute lacunar-type infarct in the right harris radiata --MRA Head:Unremarkable MR angiogram of the brain. TTE showed mild conc LVH, EF 60-65%, GI DD, AV sclerosis moderate. No ASD A1c is 6.7 Continue ASA 81mg. Started on plavix 75mg daily. Will do DAPT for 3 weeks then plavix monotherapy afterwards Continue Atorvastatin 80mg daily Appreciate neurology input Rehab as able Left upper extremity swelling ? IV infiltration Doppler:No deep venous thrombus within the left upper extremity. Swelling improving Continue diuretics Hypertension Chlorthalidone and lasix recently discontinued, amlodipine decreased Resumed amlodipine Continue carvedilol 12.5 mg twice daily Lisinopril held Torsemide changed to Lasix 80 mg IV twice daily Appreciate nephrology input DM II A1c 6.8 in July A1c 6.7 Basal/bolus insulin while in-patient per protocol BSG AC HS CKD IV Progressively worsening Cr per outpatient labs over the past couple of months previous Cr baseline ~mid 3s Replete electrolytes as needed Nephrology on board Cr 4.59 Today Vascular surgery consulted for TDC May eventually need to be initiated on dialysis COVID 19 Infection H/O JACOB No hypoxia CXR did not show any acute abnormalities Continue precautions and monitor Conservative management DVT Px: SQ heparin CODE STATUS Full code Disposition Rehab as able Admission and Anticipated Discharge Date Admission Date: October 03, 2022 Subjective Patient is seen and examined at bedside Sitting in chair during my encounter Left upper extremity swelling continues to improve No significant cough Subjectively feels left-sided weakness slowly improving Denies any chest pain, dyspnea, dizziness, nausea, abdominal pain Renal function continues to worsen Review of Systems Review of Systems: All systems reviewed & are unremarkable except as noted in Subjective Physical Exam Physical Exam: Physical Exam: Vitals signs as noted above General Appearance:Morbidly Obese, no apparent distress Head: normocephalic, Atraumatic Eyes: normal inspection, EOMI Neck: supple, Trachea midline Respiratory/Chest: Decreased breath sounds, CTA, No accessory muscle use Cardiovascular: S1, S2, No murmur Abdomen/GI:Soft, Non tender, Bowel sounds present Extremities/Musculoskeletal:normal inspection, 1+ Pedal edema, left upper extremity swelling improving Neurologic/Psych:AAOX3, left upper and lower extremity 4/5 Skin: normal color, warm Results & Data Results & Data Vital Signs (Past 12 Hours) Vital Signs Temp Pulse Pulse Resp BP Pulse Ox O2 Del Method 10/08/22 16:21 36.8 C 78 18 124/78 94 Room Air 10/08/22 15:54 64 10/08/22 11:40 36.6 C 18 L 17 147/64 H 98 Room Air 10/08/22 09:44 65 10/08/22 07:01 36.9 C 72 20 162/90 H 93 Room Air Laboratory Results BMP 10/08/22 06:13 Sodium 144 Potassium 3.7 Chloride 109 H Carbon Dioxide 25 BUN 57 H Creatinine 4.59 H* Glucose 116 H Calcium 8.5 L
[2022-10-09] MEDS: HEPARIN SOD 5,000 UNIT/0.5 ML VIAL SQ SCH ×3 (05:43→21:07)
[2022-10-09 07:22] LABS: BUN Creatinine Ratio 13.2 (10-20); Calcium 8.4 mg/dl (8.6-10.3); Creatinine Clr Calc Pharmacy 19.1 ml/min; Est GFR (African American) 13.5 ml/min; Est GFR (Non-African American) 11.6 ml/min; Potassium 3.7 mmol/L (3.5-5.1)
[2022-10-09] MEDS: LANTUS PER UNIT CHARGE SQ SCH ×2 (08:08→21:05)
[2022-10-09] MEDS: INSULIN ASPART PER UNIT CHARGE SC SCH ×4 (08:08→21:05)
[2022-10-09] MEDS: POTASSIUM CHLORIDE CRTAB 20 MEQ TABCR PO SCH ×3 (08:26→21:06)
[2022-10-09] MEDS: ASPIRIN 81 MG ECTAB PO SCH (08:27)
[2022-10-09] MEDS: FUROSEMIDE 40 MG/4 ML VIAL IV SCH ×2 (08:27→17:11)
[2022-10-09] MEDS: CHOLECALCIFEROL 1,000 UNITS 25 MCG TAB PO SCH (08:27)
[2022-10-09] MEDS: TOCOPHERYL, DL-ALPHA 400 UNITS 180 MG CAP PO SCH (08:27)
[2022-10-09] MEDS: CLOPIDOGREL BISULFATE 75 MG TAB PO SCH (08:27)
[2022-10-09] MEDS: amLODIPine BESYLATE 5 MG TAB PO SCH (08:27)
[2022-10-09] MEDS: ATORVASTATIN 40 MG TAB PO SCH (08:27)
[2022-10-09] MEDS: EZETIMIBE 10 MG TABLET PO SCH (08:28)
[2022-10-09] MEDS: carvediloL 12.5 MG TAB PO SCH ×2 (08:28→17:08)
--- NOTE | 2022-10-09 15:15 | Nephrology Progress Note ---
Date of Service October 09, 2022 Assessment & Plan Admission and Anticipated Discharge Date Admission Date: October 03, 2022 Subjective Assessment & Plan (1) HTN (hypertension): Plan: goal is sbp in 140-150s, blood pressure remains uncontrolled. Given change in renal function and ongoing volume overload and still uncontrolled blood pressure, he is likely to need dialysis soon and certainly needs ongoing diuresis right now. pt w/ nephrotic range proteinuria earlier this year, so blood pressure will likely be difficult to control Continue amlodipine current dose started carvedilol 12.5 mg bid stopped torsemide and started lasix 80 mg IV bid 17 K 20 mEq tid continue to hold lisinopril daily bmp (2) CKD (chronic kidney disease), stage IV: Plan: rapidly progressive CKD 4; high risk to need dialysis next days to weeks. CKD attributed to hypertension, diabetes, class III obesity historically. Creatinine was mid threes early July, up to September 22. Would not consider this acute kidney injury necessarily but progressive CKD. Concern for nephrotic syndrome emerging given that albuminuria worsened recently from 3 g daily in 2021 to 8 g daily in August. Note also albumin is only 2.7 after historically being near normal as recently as late 2021. Patient wishes to do dialysis at [facility] if need arises and is interested in home modalities. daily BMP Since we are planning to Do dialysis Can restart Lisinopril for cardiac benefit. He is supposed to get CVC tomorrow Continue Same Diuretics for now. Dialysis most likely On Monday Subjective Still has lot of edema. BP still high. Creat still rising slowly. Review of Systems Review of Systems: All systems reviewed & are unremarkable except as noted in Subjective Physical Exam Constitutional: well developed, well nourished, + morbidly obese and cooperative; no acute distress Eyes: EOM intact bilaterally ENMT: Ears: no external ear abnormality Nose: no external nose abnormality Mouth: + dry oral mucous membranes Neck: no nuchal rigidity Respiratory: normal respiratory effort Auscultation: + diminished lung sounds Cardiovascular: Rate/Rhythm: regular rate and regular rhythm Extremities: + edema Gastrointestinal (Abdomen): Inspection/Auscultation: normal bowel sounds Percussion/Palpation: abdomen soft; abdomen nontender Musculoskeletal: Extremities: strength 5/5 throughout and + abnormal strength (L side weak) Skin: no rashes, warm and dry Neurologic: Left arm weak\not as precise for finer movement Results & Data Vital Signs (Past 12 Hours) Vital Signs Temp Pulse Pulse Resp BP BP Pulse Ox 10/09/22 11:08 36.4 C L 68 18 169/74 H 137/74 96 10/09/22 07:00 69 10/09/22 07:00 36.8 C 69 18 166/89 H 93 10/09/22 03:57 36.5 C 71 18 138/80 96 O2 Del Method 10/09/22 11:08 Room Air 10/09/22 07:00 10/09/22 07:00 Room Air 10/09/22 03:57 Room Air
--- NOTE | 2022-10-09 16:33 | Hospitalist Progress Note ---
Date of Service October 09, 2022 Assessment & Plan (1) Left-sided weakness: (2) Diabetes mellitus, type II: (3) HTN (hypertension): (4) CKD (chronic kidney disease), stage IV: (5) JACOB (obstructive sleep apnea): Plan Patient is a 72 yr male with PMH of type 2 diabetes, CKD 4, type 2 diabetes, dyslipidemia, JACOB, h/o carotid artery dissection, hypertension, pancreatic cyst and other medical problems listed below who presents with intermittent left upper extremity weakness over the past week. Acute CVA Left hemiparesis Weakness and clumsiness of L hand for over 1 week, subtle LLE weakness noted over past few days -Head CT with no acute intracranial hemorrhage, midline shift or acute territorial infarct, involutional changes with chronic microvascular ischemic disease, age-indeterminate infarct within the L lentiform nucleus/external capsule, 3 cm -MRI Brain showed acute/subacute lacunar-type infarct in the right harris radiata --MRA Head:Unremarkable MR angiogram of the brain. TTE showed mild conc LVH, EF 60-65%, GI DD, AV sclerosis moderate. No ASD A1c is 6.7 Continue ASA 81mg. Started on plavix 75mg daily. Will do DAPT for 3 weeks then plavix monotherapy afterwards Continue Atorvastatin 80mg daily Appreciate neurology input Rehab as able CKD IV Progressively worsening Cr per outpatient labs over the past couple of months previous Cr baseline ~mid 3s Replete electrolytes as needed Nephrology on board Cr 4.69 Today Vascular surgery consulted for TDC TDC placement tomorrow N.p.o. after midnight Likely dialysis on Monday COVID 19 Infection H/O JACOB No hypoxia CXR did not show any acute abnormalities Continue precautions and monitor Conservative management Left upper extremity swelling Likely IV infiltration Doppler:No deep venous thrombus within the left upper extremity. Swelling improved Continue diuretics Hypertension Chlorthalidone and lasix recently discontinued, amlodipine decreased Resumed amlodipine Continue carvedilol 12.5 mg twice daily Plan to resume lisinopril at low-dose 10 mg daily (As BP tolerates) for cardiac benefit as recommended by nephrology Torsemide changed to Lasix 80 mg IV twice daily Appreciate nephrology input DM II A1c 6.8 in July A1c 6.7 Basal/bolus insulin while in-patient per protocol BSG AC HS DVT Px: SQ heparin CODE STATUS Full code Disposition Rehab as able Admission and Anticipated Discharge Date Admission Date: October 03, 2022 Subjective Patient is seen and examined at bedside Had a minor mechanical fall this morning Denies any head trauma, loss of consciousness Plan for TDC placement tomorrow Minimal intermittent cough Left-sided weakness about the same as yesterday Denies any chest pain, dyspnea, dizziness, nausea, abdominal pain Cr continues to rise Review of Systems Review of Systems: All systems reviewed & are unremarkable except as noted in Subjective Physical Exam Physical Exam: Physical Exam: Vitals signs as noted above General Appearance:Morbidly Obese, no apparent distress Head: normocephalic, Atraumatic Eyes: normal inspection, EOMI Neck: supple, Trachea midline Respiratory/Chest: Decreased breath sounds, CTA, No accessory muscle use Cardiovascular: S1, S2, No murmur Abdomen/GI:Soft, Non tender, Bowel sounds present Extremities/Musculoskeletal:normal inspection, 1+ Pedal edema, left upper extremity swelling improving Neurologic/Psych:AAOX3, left upper and lower extremity 4/5 Skin: normal color, warm Results & Data Results & Data Vital Signs (Past 12 Hours) Vital Signs Temp Pulse Pulse Resp BP BP Pulse Ox 10/09/22 15:25 36.9 C 60 18 123/73 97 10/09/22 15:00 67 10/09/22 11:08 36.4 C L 68 18 169/74 H 137/74 96 10/09/22 07:00 69 10/09/22 07:00 36.8 C 69 18 166/89 H 93 O2 Del Method 10/09/22 15:25 Room Air 10/09/22 15:00 10/09/22 11:08 Room Air 10/09/22 07:00 10/09/22 07:00 Room Air Laboratory Results BMP 10/09/22 05:41 Sodium 143 Potassium 3.7 Chloride 107 Carbon Dioxide 24 BUN 62 H Creatinine 4.69 H* Glucose 101 H Calcium 8.4 L
[2022-10-10] MEDS: HEPARIN SOD 5,000 UNIT/0.5 ML VIAL SQ SCH ×3 (05:32→21:22)
[2022-10-10] MEDS: INSULIN ASPART PER UNIT CHARGE SC SCH ×4 (08:14→21:20)
[2022-10-10] MEDS: LANTUS PER UNIT CHARGE SQ SCH ×2 (08:31→21:33)
[2022-10-10 08:51] LABS: BUN Creatinine Ratio 13.8 (10-20); Calcium 8.8 mg/dl (8.6-10.3); Creatinine Clr Calc Pharmacy 17.8 ml/min; Est GFR (African American) 12.5 ml/min; Est GFR (Non-African American) 10.7 ml/min; Potassium 4.1 mmol/L (3.5-5.1)
[2022-10-10] MEDS ORDERED: lisinopril 10 MG TAB PO SCH (09:00)
[2022-10-10] MEDS: FUROSEMIDE 40 MG/4 ML VIAL IV SCH ×2 (09:09→17:46)
--- NOTE | 2022-10-10 09:32 | Consultation ---
Date of Consultation October 10, 2022 Assessment & Plan (1) End stage renal disease: Pt with worsening renal fxn and needs permcath for HD initiation. Planning on placement later this AM. Ptocedure, risks, benefits, and alternatives discussed with pt by myself at Dr Kinsey's request. Pt expresses understsanding nad agreement. Pt with L sided lateral laparoscopic sugery scars and moderate diastasis rectii and large pannus. Dr Kinsey to eval whether pt candidate for CAPD in future. Patient was seen, examined, and chart reviewed. Agree with exam and treatment plan of the Vascular PA. I have discussed the risks options and benefits of the procedure with the patient. The patient understands the risks options and benefits and agrees to the procedure. History of Present Illness Reason for Consultation: ESRD Attending Physician: Km Taylor MD History of Present Illness 72 yo m with hx of CKD, HTN, DMII, JACOB, admitted with L sided weakness and possible CVA, seen in consultation today for permcath insertion d/t worsening renal fxn. Pt is also currently covid positive on 10/03. And was started on plavix on 10/05. Pt denies any related covid sx, including cough, SOB, fever, generalized weakness. Denies CUEVAS, chest pain, abd pain, N/V, rest pain, claudication, other complaints. Pt was hoping to be a candidate for CAPD, but this will be discussed at a later date. He has hx of L sided laparosopic adrenalectomy and parathyroidectomy. Allergies Allergy/AdvReac Type Severity Reaction Status Date / Time No Known Drug Allergies Allergy . Unverified 10/03/22 15:39 egg yolk AdvReac Diarrhea Unverified 10/03/22 15:39 Home Medications Medication Instructions Recorded Confirmed Type amlodipine 10 mg tablet 5 mg PO DAILY 10/03/22 10/03/22 History aspirin 81 mg tablet,delayed 81 mg PO DAILY 10/03/22 10/03/22 History release atorvastatin 80 mg tablet 80 mg PO DAILY 10/03/22 10/03/22 History cholecalciferol (vitamin D3) 25 25 mcg PO DAILY 10/03/22 10/03/22 History mcg (1,000 unit) capsule ezetimibe 10 mg tablet 10 mg PO QAM 10/03/22 10/03/22 History insulin aspar prot-insulin aspart 30 unit subcut QPM 10/03/22 10/03/22 History 100 unit/mL (70-30) subcutaneous pen (Novolog Mix 70-30FlexPen U-100) insulin aspar prot-insulin aspart 40 unit subcut QAM 10/03/22 10/03/22 History 100 unit/mL (70-30) subcutaneous pen (Novolog Mix 70-30FlexPen U-100) lisinopril 40 mg tablet 40 mg PO DAILY 10/03/22 10/03/22 History potassium chloride 20 mEq 20 meq PO QAM 10/03/22 10/03/22 History tablet,extended release(part/cryst) semaglutide 2 mg/dose (8 mg/3 mL) 2 mg subcut WK 10/03/22 10/03/22 History subcutaneous pen injector (Ozempic) sildenafil 50 mg tablet 50 mg PO DAILY PRN Erectile 10/03/22 10/03/22 History Dysfunction torsemide 20 mg tablet 20 mg PO DAILY 10/03/22 10/03/22 History vitamin E 400 unit tablet 400 unit PO DAILY 10/03/22 10/03/22 History Patient History Medical History CKD (chronic kidney disease), stage IV Diabetes mellitus, type II HTN (hypertension) Obesity due to excess calories with serious comorbidity JACOB (obstructive sleep apnea) Surgical History [place] of [place] [facility] [place] of parathyroidectomy 2009 Family History Father , age 90 with prostate cancer Prostate cancer Mother , age 67 of congestive heart failure Heart disease Other Diabetes Social History Smoking Status: Former smoker Age Started Using Tobacco: 12; Age Quit Using Tobacco: 35; packs per day: 1; Smoking End Date: 1984; Hx Alcohol Use: No Hx Substance Use: No Preferred Language: Ukrainian Communication Ability: Effective Game Author Required: No Beliefs That Will Affect Care: None Current Living Situation: Spouse current occupational status: retired 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 [employer] Feels Safe at Home: Yes Safety Concerns: Feels Safe At This Time Assistive Devices: Cane Physical Exam Constitutional: WD/WN, vitals as above + obese ENMT: Ears: no hearing impairment Neck: trachea midline surgical scar across neck Respiratory: normal respiratory effort, lungs clear to auscultation Auscultation: + diminished lung sounds Cardiovascular: Rate/Rhythm: regular rate and regular rhythm Vessels: posterior tibial pulses present, dorsalis pedis pulses present and radial pulses present; + abnormal peripheral pulses Extremities: normal capillary refill and + edema Gastrointestinal (Abdomen): Inspection/Auscultation: abdomen normal to inspect ion, normal bowel sounds, + significant pannus and + abdominal surgical scar (L lateral abd/flank, small lap scars.) Percussion/Palpation: abdomen soft; abdomen nontender +diastasis Musculoskeletal: Extremities: extremities normal to inspection; + abnormal strength (LUE 3/5) Skin: no rashes, warm and dry Neurologic: moves all extremities, + focal motor deficit (LUE weakness) and awake; not confused Psychiatric: A+Ox3, euthymic affect Results & Data Vital Signs (Past 12 Hours) Vital Signs Temp Pulse Pulse Resp BP BP Pulse Ox 10/10/22 07:43 36.7 C 69 18 120/73 97 10/10/22 07:00 69 10/10/22 03:43 36.7 C 75 20 153/77 H 94 10/09/22 23:00 67 10/09/22 23:29 36.6 C 64 18 132/75 94 O2 Del Method 10/10/22 07:43 Room Air 10/10/22 07:00 10/10/22 03:43 Room Air 10/09/22 23:00 10/09/22 23:29 Room Air
[2022-10-10] MEDS ORDERED: ceFAZolin 2000MG 2,000 MG/15 ML SYR IV ONE (09:33)
[2022-10-10] MEDS: ASPIRIN 81 MG ECTAB PO SCH (09:44)
[2022-10-10] MEDS: amLODIPine BESYLATE 5 MG TAB PO SCH ×2 (09:44→10:42)
[2022-10-10] MEDS: carvediloL 12.5 MG TAB PO SCH ×2 (09:44→17:25)
[2022-10-10] MEDS: ATORVASTATIN 40 MG TAB PO SCH (09:44)
[2022-10-10] MEDS: CHOLECALCIFEROL 1,000 UNITS 25 MCG TAB PO SCH (09:44)
[2022-10-10] MEDS: CLOPIDOGREL BISULFATE 75 MG TAB PO SCH (09:45)
[2022-10-10] MEDS: EZETIMIBE 10 MG TABLET PO SCH (09:45)
[2022-10-10] MEDS: POTASSIUM CHLORIDE CRTAB 20 MEQ TABCR PO SCH ×3 (09:45→21:21)
[2022-10-10] MEDS: TOCOPHERYL, DL-ALPHA 400 UNITS 180 MG CAP PO SCH (09:45)
--- NOTE | 2022-10-10 10:23 | Nephrology Progress Note ---
Date of Service October 10, 2022 Assessment & Plan Admission and Anticipated Discharge Date Admission Date: October 03, 2022 Subjective Assessment & Plan (1) HTN (hypertension): Plan: goal is sbp in 140-150s, blood pressure remains uncontrolled. Given change in renal function and ongoing volume overload and still uncontrolled blood pressure, he is likely to need dialysis soon and certainly needs ongoing diuresis right now. pt w/ nephrotic range proteinuria earlier this year, so blood pressure will likely be difficult to control Continue amlodipine current dose started carvedilol 12.5 mg bid stopped torsemide and started lasix 80 mg IV bid 17 K 20 mEq tid daily bmp (2) CKD (chronic kidney disease), stage IV: Plan: rapidly progressive CKD 4; high risk to need dialysis next days to weeks. CKD attributed to hypertension, diabetes, class III obesity historically. Creatinine was mid threes early July, up to September 22. Would not consider this acute kidney injury necessarily but progressive CKD. Concern for nephrotic syndrome emerging given that albuminuria worsened recently from 3 g daily in 2021 to 8 g daily in August. Note also albumin is only 2.7 after historically being near normal as recently as late 2021. Patient wishes to do dialysis at [facility] if need arises and is interested in home modalities. daily BMP Since we are planning to Do dialysis Can restart Lisinopril for cardiac benefit. He is supposed to get CVC later today. Dialysis from tomorrow Continue Same Diuretics for now. Lower Amlo dose given edema and raise lisinopil to 20 daily. ideally should be even higher at 40. Dialysis most likely On Monday Subjective Still has lot of edema. BP still high. Creat still rising slowly. 1600 ml urine Review of Systems Review of Systems: All systems reviewed & are unremarkable except as noted in Subjective Physical Exam Constitutional: well developed, well nourished, + morbidly obese and cooperative; no acute distress Eyes: EOM intact bilaterally ENMT: Ears: no external ear abnormality Nose: no external nose abnormality Mouth: + dry oral mucous membranes Neck: no nuchal rigidity Respiratory: normal respiratory effort Auscultation: + diminished lung sounds Cardiovascular: Rate/Rhythm: regular rate and regular rhythm Extremities: + edema Gastrointestinal (Abdomen): Inspection/Auscultation: normal bowel sounds Percussion/Palpation: abdomen soft; abdomen nontender Musculoskeletal: Extremities: strength 5/5 throughout and + abnormal strength (L side weak) Skin: no rashes, warm and dry Neurologic: Left arm weak\not as precise for finer movement Results & Data Vital Signs (Past 12 Hours) Vital Signs Temp Pulse Pulse Resp BP BP Pulse Ox 10/10/22 07:43 36.7 C 69 18 120/73 97 10/10/22 07:00 69 10/10/22 03:43 36.7 C 75 20 153/77 H 94 10/09/22 23:00 67 10/09/22 23:29 36.6 C 64 18 132/75 94 O2 Del Method 10/10/22 07:43 Room Air 10/10/22 07:00 10/10/22 03:43 Room Air 10/09/22 23:00 10/09/22 23:29 Room Air
[2022-10-10] MEDS: lisinopril 20 MG TAB PO SCH (10:42)
[2022-10-10] MEDS ORDERED: fentaNYL citrate PF 100 MCG/2 ML VIAL ONE (13:38)
[2022-10-10] MEDS ORDERED: MIDAZOLAM HCL 1 MG/ML 2ML VIAL ONE (13:38)
[2022-10-10] MEDS ORDERED: HEPARIN SOD (PORCINE) 5,000 UNITS/ML VIAL ONE (13:38)
[2022-10-10] MEDS ORDERED: LIDOCAINE 1% LOCAL 20 ML VIAL ONE (13:38)
--- NOTE | 2022-10-10 14:06 | Pre Anesthesia Assessment ---
Date of Service October 10, 2022 Pre Sedation Assessment Vital Signs Temp Pulse Pulse Resp BP BP Pulse Ox 10/10/22 14:02 78 16 157/89 H 100 10/10/22 13:57 73 16 158/82 H 100 10/10/22 13:52 80 16 168/102 H 100 10/10/22 13:50 77 16 181/97 H 100 10/10/22 12:00 36.8 C 63 18 138/87 98 10/10/22 11:34 36.8 C 66 18 134/72 92 10/10/22 07:43 36.7 C 69 18 120/73 97 10/10/22 07:00 69 10/10/22 03:43 36.7 C 75 20 153/77 H 94 10/09/22 23:00 67 10/09/22 23:29 36.6 C 64 18 132/75 94 10/09/22 19:54 36.5 C 63 18 147/63 H 96 10/09/22 15:25 36.9 C 60 18 123/73 97 10/09/22 15:00 67 O2 Del Method O2 Flow Rate 10/10/22 14:02 Oxymask 4 10/10/22 13:57 Oxymask 4 10/10/22 13:52 Oxymask 4 10/10/22 13:50 Oxymask 4 10/10/22 12:00 10/10/22 11:34 Room Air 10/10/22 07:43 Room Air 10/10/22 07:00 10/10/22 03:43 Room Air 10/09/22 23:00 10/09/22 23:29 Room Air 10/09/22 19:54 Room Air 10/09/22 15:25 Room Air 10/09/22 15:00 Cardiovascular RRR, no murmur, no edema Respiratory normal respiratory effort, lungs clear to auscultation Pre-Sedation Airway Assessment Smoking Status: Former smoker Hx Sleep Apnea: Yes Short, Thick Neck: Yes Thyromental Distance: > or= 3.5 Finger Breadths Oral Cavity: + WNL Mallampati Class: III ASA: ASA4 NPO Status Date of Last Intake of Fluids: 10/09/22 Time of Last Intake of Fluids: 21:00 Date of Last Intake of Solid Food: 10/09/22 Time of Last Intake of Solid Foods: 21:00 Procedure Planning Contraindications for Sedation: none Current Medications Reviewed: Yes Notes The planned sedation has been discussed with the patient. Informed Consent was obtained. I have identified the patient, determined the appropriateness of sedation and have assessed the patient immediately prior to the procedure. All medicine(s) and interventions are by my order.
--- NOTE | 2022-10-10 14:07 | Operative Report ---
Post Operative Report Pre & Post Diagnosis Operation Date: 10/10/22 11:40 Pre-Op Diagnosis: Acute Kidney Injury Post-Op Diagnosis: Acute Kidney Injury I identified the patient and participated in the time-out.: Yes Procedure Operation Date: 10/10/22 11:40 Actual Procedures p Insertion of Perm Catheter Right Jugular Vein Approach, Ultrasound Localization of Right Jugular Vein, Fluoroscopy for Positioning, Moderate Sedation [id number](Right) - Liban Kinsey MD Surgeon Liban Kinsey MD [employer] Work[employer] none Estimated Blood Loss 5 Findings Consistent with Post-Op Diagnosis Specimens none Anesthesia Type RN Sedation Complications none Disposition Accompanied Patient To Recovery: No Disposition: Recovery Room Indications This is a 72-year-old gentleman who was admitted with a stroke and has developed acute kidney injury. He also was COVID-positive. He is in need of dialysis. A PermCath was recommended for dialysis access. I have discussed the risks options and benefits of the procedure with the patient. The patient understands the risks options and benefits and agrees to the procedure. Description of Procedure Patient was taken to the angio suite and placed in the supine position. The right side of the neck and chest wall were prepped and draped in a sterile manner. The patient was identified and a timeout performed. Local anesthesia was then administered to the appropriate areas of the neck and chest wall. Ultrasound was then used to locate the right internal jugular vein. The vein compressed easily, had no filing defects, and was patent. The vein was then punctured under direct ultrasound imaging. A guidewire was then passed centrally under fluoroscopic imaging. A stab wound was then made in the a nterior chest wall and a 19 cm permcath was passed from the stab wound on the chest wall to the puncture site on the neck. The puncture site was then dilated till the 14Fr peel away sheath was inserted. The permcath was then inserted through the sheath to a central position in the distal superior vena cava. The peel away sheath was then removed. The catheter was then sutured in place using nylon sutures. The puncture was then closed using a 4-0 Vicryl subcuticular suture. Dermabond was used for a dressing on the puncture site. Both ports aspirated and flushed easily and were then packed with heparin. A sterile dressing was applied to the catheter. The patient left the operation room in satisfactory condition and tolerated the procedure well. All needle and sponge counts were correct at the end of the procedure. I attest to the content of the Intraoperative Record and any orders documented therein. Any exceptions are noted below.
--- NOTE | 2022-10-10 14:08 | Post Anesthesia Assessment ---
Date of Service October 10, 2022 Post Sedation Assessment Vital Signs Temp Pulse Pulse Resp BP BP Pulse Ox 10/10/22 14:02 78 16 157/89 H 100 10/10/22 13:57 73 16 158/82 H 100 10/10/22 13:52 80 16 168/102 H 100 10/10/22 13:50 77 16 181/97 H 100 10/10/22 12:00 36.8 C 63 18 138/87 98 10/10/22 11:34 36.8 C 66 18 134/72 92 10/10/22 07:43 36.7 C 69 18 120/73 97 10/10/22 07:00 69 10/10/22 03:43 36.7 C 75 20 153/77 H 94 10/09/22 23:00 67 10/09/22 23:29 36.6 C 64 18 132/75 94 10/09/22 19:54 36.5 C 63 18 147/63 H 96 10/09/22 15:25 36.9 C 60 18 123/73 97 10/09/22 15:00 67 O2 Del Method O2 Flow Rate 10/10/22 14:02 Oxymask 4 10/10/22 13:57 Oxymask 4 10/10/22 13:52 Oxymask 4 10/10/22 13:50 Oxymask 4 10/10/22 12:00 10/10/22 11:34 Room Air 10/10/22 07:43 Room Air 10/10/22 07:00 10/10/22 03:43 Room Air 10/09/22 23:00 10/09/22 23:29 Room Air 10/09/22 19:54 Room Air 10/09/22 15:25 Room Air 10/09/22 15:00 Recovery Score Activity: Moves 4 extremities Respiration: Deep Breath/Cough Circulation: +/-20% PreAnes Value Consciousness: Fully Awake Oxygen Saturation: > 92% On Room Air Post Anesthesia Score: 10 Discharge Sedation Level of Care: Fast Track Phase II Post Sedation Plan On clinical assessment, the patient appears to have tolerated the sedation without complications. Patient is recovering as anticipated. Patient will continue to be monitored by nursing and may be discharged when sedation discharge criteria are met per below protocol. Upon Completions of procedure up to 15 minutes continue every 5 minute vital signs and the P.A.R. score; then discharge to a Phase I or Fast Track to Phase II per the following guidelines: * Discharge Patient to appropriate Phase II area if PAR is 8 or greater or return to pre- procedure baseline. The post - procedure orders will be as d irected. * If PAR score is less than 8 or not return to pre-procedure baseline then patient will follow Phase I monitoring till PAR is reached for Phase II. The Phase I may be done in procedure room or may call to secure a Phase I area. * If naloxone or flumazenil are used for reversal, hold in Phase I for continued monitoring from when last reversal dose was given for a minimum of 60 minutes or longer pending the nurse and/or physician discretion of patient condition before discharge to Phase II. Please call the Sedation Physician to re-evaluate and complete post-note for discharge to Phase II area. Do NOT discharge from procedure sedation or Phase 1 until post- sedation evaluation note is complete by procedure /sedation MD Sedation Discharge Instructions to be given to the patient at discharge to home.
--- NOTE | 2022-10-10 15:34 | Hospitalist Progress Note ---
Date of Service October 10, 2022 Assessment & Plan (1) Left-sided weakness: (2) Diabetes mellitus, type II: (3) HTN (hypertension): (4) CKD (chronic kidney disease), stage IV: (5) JACOB (obstructive sleep apnea): Plan Patient is a 72 yr male with PMH of type 2 diabetes, CKD 4, type 2 diabetes, dyslipidemia, JACOB, h/o carotid artery dissection, hypertension, pancreatic cyst and other medical problems listed below who presents with intermittent left upper extremity weakness over the past week. Acute CVA Left hemiparesis Weakness and clumsiness of L hand for over 1 week, subtle LLE weakness noted over past few days -Head CT with no acute intracranial hemorrhage, midline shift or acute territorial infarct, involutional changes with chronic microvascular ischemic disease, age-indeterminate infarct within the L lentiform nucleus/external capsule, 3 cm -MRI Brain showed acute/subacute lacunar-type infarct in the right harris radiata --MRA Head:Unremarkable MR angiogram of the brain. TTE showed mild conc LVH, EF 60-65%, GI DD, AV sclerosis moderate. No ASD A1c is 6.7 Continue ASA 81mg. Started on plavix 75mg daily. Will do DAPT for 3 weeks then plavix monotherapy afterwards Continue Atorvastatin 80mg daily Appreciate neurology input Rehab as able CKD IV Progressively worsening Cr per outpatient labs over the past couple of months previous Cr baseline ~mid 3s Replete electrolytes as needed Nephrology on board Cr 5.01 Today TDC placement today by Likely HD tomorrow COVID 19 Infection H/O JACOB No hypoxia CXR did not show any acute abnormalities Continue precautions and monitor Conservative management Left upper extremity swelling Likely IV infiltration Doppler:No deep venous thrombus within the left upper extremity. Swelling improved Continue diuretics Hypertension Chlorthalidone and lasix recently discontinued, amlodipine decreased Resumed amlodipine at lower dose Continue carvedilol 12.5 mg twice daily Plan to resume lisinopril at low-dose 20 mg daily (As BP tolerates) for cardiac benefit as recommended by nephrology Torsemide changed to Lasix 80 mg IV twice daily Appreciate nephrology input DM II A1c 6.8 in July A1c 6.7 Basal/bolus insulin while in-patient per protocol BSG AC HS DVT Px: SQ heparin CODE STATUS Full code Disposition Rehab as able Admission and Anticipated Discharge Date Admission Date: October 03, 2022 Subjective Patient is seen and examined at bedside Had dialysis catheter placed today Left-sided weakness slowly improving Denies any chest pain, dyspnea, dizziness, nausea, abdominal pain Likely to have HD tomorrow Review of Systems Review of Systems: All systems reviewed & are unremarkable except as noted in Subjective Physical Exam Physical Exam: Physical Exam: Vitals signs as noted above General Appearance:Morbidly Obese, no apparent distress Head: normocephalic, Atraumatic Eyes: normal inspection, EOMI Neck: supple, Trachea midline Respiratory/Chest: Decreased breath sounds, CTA, No accessory muscle use Cardiovascular: S1, S2, No murmur Abdomen/GI:Soft, Non tender, Bowel sounds present Extremities/Musculoskeletal:normal inspection, 1+ Pedal edema, left upper extremity swelling improving Neurologic/Psych:AAOX3, left upper and lower extremity 4/5 Skin: normal color, warm Results & Data Results & Data Vital Signs (Past 12 Hours) Vital Signs Temp Pulse Pulse Resp BP BP Pulse Ox 10/10/22 14:32 36.5 C 69 16 159/93 H 94 10/10/22 14:07 66 16 155/85 H 100 10/10/22 14:02 78 16 157/89 H 100 10/10/22 13:57 73 16 158/82 H 100 10/10/22 13:52 80 16 168/102 H 100 10/10/22 13:50 77 16 181/97 H 100 10/10/22 12:00 36.8 C 63 18 138/87 98 10/10/22 11:34 36.8 C 66 18 134/72 92 10/10/22 07:43 36.7 C 69 18 120/73 97 10/10/22 07:00 69 10/10/22 03:43 36.7 C 75 20 153/77 H 94 O2 Del Method O2 Flow Rate 10/10/22 14:32 Room Air 10/10/22 14:07 Oxymask 4 10/10/22 14:02 Oxymask 4 10/10/22 13:57 Oxymask 4 10/10/22 13:52 Oxymask 4 10/10/22 13:50 Oxymask 4 10/10/22 12:00 10/10/22 11:34 Room Air 10/10/22 07:43 Room Air 10/10/22 07:00 10/10/22 03:43 Room Air Laboratory Results [facility] 10/10/22 07:41 Sodium 142 Potassium 4.1 Chloride 105 Carbon Dioxide 28 BUN 69 H Creatinine 5.01 H* D Glucose 131 H Calcium 8.8
[2022-10-11] MEDS: HEPARIN SOD 5,000 UNIT/0.5 ML VIAL SQ SCH ×3 (05:14→20:42)
[2022-10-11 07:04] LABS: Hematocrit (blood only) 33.7 % (42.0-52.0); Hemoglobin 11.2 g/dl (14.0-18.0); Mean Corpuscular Hemoglobin 28.1 pg (25.0-34.0); Mean Corpuscular Hgb Conc 33.2 g/dL (32.0-36.0); Mean Corpuscular Volume 84.7 fL (80.0-100.0); Mean Platelet Volume 10.7 fL (9.4-12.4); Platelet Count 284 K/uL (130-400); RDW Coefficient of Variation 14.1 % (11.5-14.5); RDW Standard Deviation 43.4 fL (36.4-46.3); Red Blood Count 3.98 M/uL (4.70-6.10); White Blood Count 10.29 K/ul (4.8-10.8)
[2022-10-11] MEDS: lisinopril 20 MG TAB PO SCH (07:53)
[2022-10-11] MEDS: ASPIRIN 81 MG ECTAB PO SCH (07:53)
[2022-10-11] MEDS: POTASSIUM CHLORIDE CRTAB 20 MEQ TABCR PO SCH ×3 (07:53→20:42)
[2022-10-11] MEDS: amLODIPine BESYLATE 5 MG TAB PO SCH (07:54)
[2022-10-11] MEDS: ATORVASTATIN 40 MG TAB PO SCH (07:54)
[2022-10-11] MEDS: EZETIMIBE 10 MG TABLET PO SCH (07:54)
[2022-10-11] MEDS: CHOLECALCIFEROL 1,000 UNITS 25 MCG TAB PO SCH (07:55)
[2022-10-11] MEDS: CLOPIDOGREL BISULFATE 75 MG TAB PO SCH (07:55)
[2022-10-11] MEDS: TOCOPHERYL, DL-ALPHA 400 UNITS 180 MG CAP PO SCH (07:57)
[2022-10-11 07:59] LABS: Creatinine Clr Calc Pharmacy 18.4 ml/min; Est GFR (Non-African American) 11.2 ml/min
[2022-10-11 08:00] LABS: BUN Creatinine Ratio 15.5 (10-20); Calcium 8.5 mg/dl (8.6-10.3); Potassium 3.5 mmol/L (3.5-5.1)
[2022-10-11] MEDS: INSULIN ASPART PER UNIT CHARGE SC SCH ×4 (08:35→20:32)
[2022-10-11] MEDS: LANTUS PER UNIT CHARGE SQ SCH ×2 (08:42→20:41)
[2022-10-11] MEDS ORDERED: amLODIPine BESYLATE 5 MG TAB PO SCH (09:00)
[2022-10-11] MEDS ORDERED: lisinopril 20 MG TAB PO SCH (09:00)
[2022-10-11] MEDS: FUROSEMIDE 40 MG/4 ML VIAL IV SCH ×2 (09:08→18:20)
--- NOTE | 2022-10-11 10:11 | Dialysis Progress Note ---
Date of Service October 11, 2022 Assessment & Plan Admission and Anticipated Discharge Date Admission Date: October 03, 2022 Subjective Assessment & Plan (1) HTN (hypertension): Plan: goal is sbp in 140-150s, blood pressure remains uncontrolled. Given change in renal function and ongoing volume overload and still uncontrolled blood pressure, he is likely to need dialysis soon and certainly needs ongoing diuresis right now. pt w/ nephrotic range proteinuria earlier this year, so blood pressure will likely be difficult to control Continue amlodipine current dose started carvedilol 12.5 mg bid stopped torsemide and started lasix 80 mg IV bid 17 K 20 mEq tid daily bmp (2) CKD (chronic kidney disease), stage IV: Plan: rapidly progressive CKD 4; high risk to need dialysis next days to weeks. CKD attributed to hypertension, diabetes, class III obesity historically. Creatinine was mid threes early July, up to September 22. Would not consider this acute kidney injury necessarily but progressive CKD. Concern for nephrotic syndrome emerging given that albuminuria worsened recently from 3 g daily in 2021 to 8 g daily in August. Note also albumin is only 2.7 after historically being near normal as recently as late 2021. Patient wishes to do dialysis at [facility] if need arises and is interested in home modalities. daily BMP Since we are planning to Do dialysis Can restart Lisinopril for cardiac benefit. Dialysis today for 2 hrs No UF and no meds today and 3k Do again tomorrow for 3 hrs and then on monday Continue Same Diuretics for now. Subjective Still has lot of edema. getting ready to Dialysis. CVC site is fine. BP still high.Lot of urine Review of Systems Review of Systems: All systems reviewed & are unremarkable except as noted in Subjective Physical Exam Constitutional: well developed, well nourished, + morbidly obese and cooperative; no acute distress Eyes: EOM intact bilaterally ENMT: Ears: no external ear abnormality Nose: no external nose abnormality Mouth: + dry oral mucous membranes Neck: no nuchal rigidity Respiratory: normal respiratory effort Auscultation: + diminished lung sounds Cardiovascular: Rate/Rhythm: regular rate and regular rhythm Extremities: + edema Gastrointestinal (Abdomen): Inspection/Auscultation: normal bowel sounds Percussion/Palpation: abdomen soft; abdomen nontender Musculoskeletal: Extremities: strength 5/5 throughout and + abnormal strength (L side weak) Skin: no rashes, warm and dry Neurologic: Left arm weak\not as precise for finer movement Results & Data Vital Signs (Past 12 Hours) Vital Signs Temp Pulse Pulse Resp BP BP Pulse Ox 10/11/22 07:59 10/11/22 05:02 36.9 C 69 18 153/78 H 92 10/11/22 04:00 72 10/10/22 22:40 36.7 C 64 19 124/73 96 O2 Del Method 10/11/22 07:59 Room Air 10/11/22 05:02 Room Air 10/11/22 04:00 10/10/22 22:40 Room Air
[2022-10-11] MEDS ORDERED: SODIUM CHLORIDE 0.9% 1000ML 1,000 ML IV PRN (10:24)
[2022-10-11] MEDS: carvediloL 12.5 MG TAB PO SCH ×2 (10:34→17:29)
[2022-10-11 13:02] LABS: HBSAG NON-REACTIVE (NON-REACTIVE); Hepatitis B Core Antibody IgM NON-REACTIVE (NON-REACTIVE); Hepatitis B Surface Ab, Quant <5 mIU/mL (> OR = 10)
--- NOTE | 2022-10-11 17:04 | Hospitalist Progress Note ---
Date of Service October 11, 2022 Assessment & Plan (1) Left-sided weakness: (2) Diabetes mellitus, type II: (3) HTN (hypertension): (4) CKD (chronic kidney disease), stage IV: (5) JACOB (obstructive sleep apnea): Plan Patient is a 72 yr male with PMH of type 2 diabetes, CKD 4, type 2 diabetes, dyslipidemia, JACOB, h/o carotid artery dissection, hypertension, pancreatic cyst and other medical problems listed below who presents with intermittent left upper extremity weakness over the past week. Acute CVA Left hemiparesis Weakness and clumsiness of L hand for over 1 week, subtle LLE weakness noted over past few days -Head CT with no acute intracranial hemorrhage, midline shift or acute territorial infarct, involutional changes with chronic microvascular ischemic disease, age-indeterminate infarct within the L lentiform nucleus/external capsule, 3 cm -MRI Brain showed acute/subacute lacunar-type infarct in the right harris radiata --MRA Head:Unremarkable MR angiogram of the brain. TTE showed mild conc LVH, EF 60-65%, GI DD, AV sclerosis moderate. No ASD A1c is 6.7 Continue ASA 81mg. Started on plavix 75mg daily. Will do DAPT for 3 weeks then plavix monotherapy afterwards Continue Atorvastatin 80mg daily Appreciate neurology input Rehab as able CKD IV Progressively worsening Cr per outpatient labs over the past couple of months previous Cr baseline ~mid 3s Replete electrolytes as needed Nephrology on board Cr 4.85 Today TDC placement by on 10/10/22 Had HD today Discussed with nephrology today: Plan for repeat hemodialysis tomorrow COVID 19 Infection H/O JACOB No hypoxia CXR did not show any acute abnormalities Continue precautions and monitor Conservative management Left upper extremity swelling Likely IV infiltration Doppler:No deep venous thrombus within the left upper extremity. Swelling improved Continue diuretics per Nephrology Hypertension Chlorthalidone and lasix recently discontinued, amlodipine decreased Resumed amlodipine at lower dose Continue carvedilol 12.5 mg twice daily Continue lisinopril 40 mg daily Also on IV Lasix Appreciate nephrology input DM II A1c 6.8 in July A1c 6.7 Basal/bolus insulin while in-patient per protocol BSG AC HS DVT Px: SQ heparin CODE STATUS Full code Disposition Rehab as able Admission and Anticipated Discharge Date Admission Date: October 03, 2022 Subjective Patient is seen and examined at bedside Had dialysis this morning--Tolerated well Offers no new complaints Left-sided weakness same as yesterday Family at bedside Denies any chest pain, dyspnea, dizziness, nausea, abdominal pain Review of Systems Review of Systems: All systems reviewed & are unremarkable except as noted in Subjective Physical Exam Physical Exam: Physical Exam: Vitals signs as noted above General Appearance:Morbidly Obese, no apparent distress Head: normocephalic, Atraumatic Eyes: normal inspection, EOMI Neck: supple, Trachea midline Respiratory/Chest: Decreased breath sounds, CTA, No accessory muscle use Cardiovascular: S1, S2, No murmur Abdomen/GI:Soft, Non tender, Bowel sounds present Extremities/Musculoskeletal:normal inspection, 1+ Pedal edema, left upper extremity swelling improving Neurologic/Psych:AAOX3, left upper and lower extremity 4/5 Skin: normal color, warm Results & Data Results & Data Vital Signs (Past 12 Hours) Vital Signs Temp Pulse Pulse Pulse Resp BP BP 10/11/22 14:17 36.6 C 66 10/11/22 12:25 36.8 C 10/11/22 06:01 56 L 10/11/22 12:00 60 127/88 10/11/22 11:45 62 138/78 10/11/22 11:30 61 135/78 10/11/22 11:15 58 L 136/70 10/11/22 11:00 60 106/61 10/11/22 10:45 61 109/76 10/11/22 09:16 36.5 C 63 10/11/22 10:30 63 126/78 10/11/22 10:02 36.8 C 63 10/11/22 10:15 65 151/86 H 10/11/22 07:59 10/11/22 05:02 36.9 C 69 18 153/78 H BP Pulse Ox O2 Del Method 10/11/22 14:17 133/87 93 Room Air 10/11/22 12:25 148/87 H 10/11/22 06:01 10/11/22 12:00 10/11/22 11:45 10/11/22 11:30 10/11/22 11:15 10/11/22 11:00 10/11/22 10:45 10/11/22 09:16 145/85 H 97 Room Air 10/11/22 10:30 10/11/22 10:02 10/11/22 10:15 10/11/22 07:59 Room Air 10/11/22 05:02 92 Room Air Laboratory Results Short CBC 10/11/22 Range/Units 06:40 WBC 10.29 (4.8-10.8) K/ul Hgb 11.2 L (14.0-18.0) g/dl Hct 33.7 L (42.0-52.0) % Plt Count 284 (130-400) K/uL BMP 10/11/22 06:40 Sodium 142 Potassium 3.5 Chloride 105 Carbon Dioxide 25 BUN 75 H Creatinine 4.85 H* Glucose 107 H Calcium 8.5 L
[2022-10-12] MEDS: HEPARIN SOD 5,000 UNIT/0.5 ML VIAL SQ SCH ×3 (05:08→20:46)
[2022-10-12] MEDS ORDERED: EPOETIN ALFA 4,000 UNIT/ML VIAL IV ONE (07:00)
[2022-10-12] MEDS ORDERED: SODIUM CHLORIDE 0.9% 1000ML 1,000 ML IV PRN (07:00)
[2022-10-12] MEDS: INSULIN ASPART PER UNIT CHARGE SC SCH ×4 (08:21→20:32)
[2022-10-12] MEDS: LANTUS PER UNIT CHARGE SQ SCH ×2 (08:22→20:32)
[2022-10-12 08:33] LABS: Hematocrit (blood only) 36.5 % (42.0-52.0); Hemoglobin 12.1 g/dl (14.0-18.0); Mean Corpuscular Hemoglobin 28.2 pg (25.0-34.0); Mean Corpuscular Hgb Conc 33.2 g/dL (32.0-36.0); Mean Corpuscular Volume 85.1 fL (80.0-100.0); Mean Platelet Volume 11.1 fL (9.4-12.4); Platelet Count 312 K/uL (130-400); RDW Coefficient of Variation 14.2 % (11.5-14.5); Red Blood Count 4.29 M/uL (4.70-6.10); White Blood Count 9.43 K/ul (4.8-10.8)
[2022-10-12] MEDS: EZETIMIBE 10 MG TABLET PO SCH (08:33)
[2022-10-12] MEDS: CLOPIDOGREL BISULFATE 75 MG TAB PO SCH (08:35)
[2022-10-12] MEDS: lisinopril 40 MG TAB PO SCH (08:35)
[2022-10-12] MEDS: carvediloL 12.5 MG TAB PO SCH ×2 (08:35→17:42)
[2022-10-12] MEDS: CHOLECALCIFEROL 1,000 UNITS 25 MCG TAB PO SCH (08:36)
[2022-10-12] MEDS: amLODIPine BESYLATE 5 MG TAB PO SCH (08:36)
[2022-10-12] MEDS: ATORVASTATIN 40 MG TAB PO SCH (08:36)
[2022-10-12] MEDS: ASPIRIN 81 MG ECTAB PO SCH (08:36)
[2022-10-12] MEDS: TOCOPHERYL, DL-ALPHA 400 UNITS 180 MG CAP PO SCH (08:37)
[2022-10-12] MEDS: FUROSEMIDE 40 MG/4 ML VIAL IV SCH ×2 (08:47→17:43)
[2022-10-12] MEDS: POTASSIUM CHLORIDE CRTAB 20 MEQ TABCR PO SCH ×3 (08:47→20:56)
[2022-10-12 08:52] LABS: BUN Creatinine Ratio 13.4 (10-20); Calcium 8.8 mg/dl (8.6-10.3); Creatinine Clr Calc Pharmacy 19.9 ml/min; Est GFR (African American) 14.3 ml/min; Est GFR (Non-African American) 12.3 ml/min; Potassium 3.8 mmol/L (3.5-5.1)
--- NOTE | 2022-10-12 10:20 | Dialysis Progress Note ---
Date of Service October 12, 2022 Assessment & Plan Admission and Anticipated Discharge Date Admission Date: October 03, 2022 Subjective Assessment & Plan (1) HTN (hypertension): Plan: goal is sbp in 140-150s, blood pressure remains uncontrolled. Given change in renal function and ongoing volume overload and still uncontrolled blood pressure, he is likely to need dialysis soon and certainly needs ongoing diuresis right now. pt w/ nephrotic range proteinuria earlier this year, so blood pressure will likely be difficult to control (2) CKD (chronic kidney disease), stage IV: Plan: rapidly progressive CKD 4; high risk to need dialysis next days to weeks. CKD attributed to hypertension, diabetes, class III obesity historically. Rupal freeman was mid threes early July, up to September 22. Would not consider this acute kidney injury necessarily but progressive CKD. Concern for nephrotic syndrome emerging given that albuminuria worsened recently from 3 g daily in 2021 to 8 g daily in August. Note also albumin is only 2.7 after historically being near normal as recently as late 2021. Patient wishes to do dialysis at [facility] if need arises and is interested in home modalities. daily BMP Dialysis today for 3 hrs 1 kilo UF and 3k and use some heparin Do again monday either inpt or at rehab. Continue Same Diuretics for now. for discharge will put him back on torsemide higher dose of 100 Subjective Still has lot of edema. Seen in Dialysis. CVC site is fine. tolerating fine. BP still high.Lot of urine Review of Systems Review of Systems: All systems reviewed & are unremarkable except as noted in Subjective Physical Exam Constitutional: well developed, well nourished, + morbidly obese and cooperative; no acute distress Eyes: EOM intact bilaterally ENMT: Ears: no external ear abnormality Nose: no external nose abnormality Mouth: + dry oral mucous membranes Neck: no nuchal rigidity Respiratory: normal respiratory effort Auscultation: + diminished lung sounds Cardiovascular: Rate/Rhythm: regular rate and regular rhythm Extremities: + edema Gastrointestinal (Abdomen): Inspection/Auscultation: normal bowel sounds Percussion/Palpation: abdomen soft; abdomen nontender Musculoskeletal: Extremities: strength 5/5 throughout and + abnormal strength (L side weak) Skin: no rashes, warm and dry Neurologic: Left arm weak\not as precise for finer movement Results & Data Vital Signs (Past 12 Hours) Vital Signs Temp Pulse Pulse Pulse Resp BP Pulse Ox 10/12/22 08:01 36.4 C L 60 18 148/91 H 92 10/12/22 04:11 36.6 C 65 20 154/83 H 92 10/12/22 01:28 67 10/11/22 23:54 36.6 C 63 18 125/76 92 O2 Del Method 10/12/22 08:01 Room Air 10/12/22 04:11 Room Air 10/12/22 01:28 10/11/22 23:54 Room Air
--- NOTE | 2022-10-12 16:02 | Hospitalist Progress Note ---
Date of Service October 12, 2022 Assessment & Plan (1) Left-sided weakness: (2) Diabetes mellitus, type II: (3) HTN (hypertension): (4) CKD (chronic kidney disease), stage IV: (5) JACOB (obstructive sleep apnea): Plan Patient is a 72 yr male with PMH of type 2 diabetes, CKD 4, type 2 diabetes, dyslipidemia, JACOB, h/o carotid artery dissection, hypertension, pancreatic cyst and other medical problems listed below who presents with intermittent left upper extremity weakness over the past week. Acute CVA Left hemiparesis Weakness and clumsiness of L hand for over 1 week, subtle LLE weakness noted over past few days -Head CT with no acute intracranial hemorrhage, midline shift or acute territorial infarct, involutional changes with chronic microvascular ischemic disease, age-indeterminate infarct within the L lentiform nucleus/external capsule, 3 cm -MRI Brain showed acute/subacute lacunar-type infarct in the right harris radiata --MRA Head:Unremarkable MR angiogram of the brain. TTE showed mild conc LVH, EF 60-65%, GI DD, AV sclerosis moderate. No ASD A1c is 6.7 Continue ASA 81mg. Started on plavix 75mg daily. Will do DAPT for 3 weeks then plavix monotherapy afterwards Continue Atorvastatin 80mg daily Appreciate neurology input Rehab as able Continue PT OT CKD IV Progressively worsening Cr per outpatient labs over the past couple of months previous Cr baseline ~mid 3s Replete electrolytes as needed Nephrology on board Cr 4.47 Today TDC placement by on 10/10/22 Discussed with nephrology today: Plan for discharge on torsemide Continue dialysis per nephrology Next hemodialysis on Monday COVID 19 Infection H/O JACOB No hypoxia CXR did not show any acute abnormalities Continue precautions and monitor Conservative management Left upper extremity swelling Likely IV infiltration Doppler:No deep venous thrombus within the left upper extremity. Swelling improved Continue diuretics/HD per Nephrology Improved Hypertension Chlorthalidone and lasix recently discontinued, amlodipine decreased Resumed amlodipine at lower dose Continue carvedilol 12.5 mg twice daily Continue lisinopril 40 mg daily Also on IV Lasix Appreciate nephrology input DM II A1c 6.8 in July A1c 6.7 Basal/bolus insulin while in-patient per protocol BSG AC HS DVT Px: SQ heparin CODE STATUS Full code Disposition Rehab when accepted Admission and Anticipated Discharge Date Admission Date: October 03, 2022 Subjective Patient is seen and examined at bedside Doing well today Offers no new complaints Patient had dialysis this morning Discussed with nephrology today Had PT eval earlier today Subjectively feels left-sided weakness slowly improving Denies any chest pain, dyspnea, dizziness, nausea, abdominal pain No significant cough Review of Systems Review of Systems: All systems reviewed & are unremarkable except as noted in Subjective Physical Exam Physical Exam: Physical Exam: Vitals signs as noted above General Appearance:Morbidly Obese, no apparent distress Head: normocephalic, Atraumatic Eyes: normal inspection, EOMI Neck: supple, Trachea midline Respiratory/Chest: Decreased breath sounds, CTA, No accessory muscle use Cardiovascular: S1, S2, No murmur Abdomen/GI:Soft, Non tender, Bowel sounds present Extremities/Musculoskeletal:normal inspection, 1+ Pedal edema, left upper extremity swelling improved Neurologic/Psych:AAOX3, left upper and lower extremity 4/5 Skin: normal color, warm Results & Data Results & Data Vital Signs (Past 12 Hours) Vital Signs Temp Pulse Pulse Pulse Pulse Resp BP 10/12/22 14:01 36.9 C 60 10/12/22 13:10 36.8 C 60 10/12/22 12:45 68 83/54 L 10/12/22 12:30 66 107/58 L 10/12/22 12:00 63 121/82 10/12/22 11:30 67 127/79 10/12/22 11:00 64 113/71 10/12/22 11:03 10/12/22 10:30 60 116/85 10/12/22 10:00 58 L 154/82 H 10/12/22 09:54 61 154/82 H 10/12/22 09:46 36.9 C 64 10/12/22 08:01 36.4 C L 60 18 10/12/22 04:11 36.6 C 65 20 BP Pulse Ox O2 Del Method 10/12/22 14:01 119/68 92 Room Air 10/12/22 13:10 111/71 10/12/22 12:45 10/12/22 12:30 10/12/22 12:00 10/12/22 11:30 10/12/22 11:00 10/12/22 11:03 Room Air 10/12/22 10:30 10/12/22 10:00 10/12/22 09:54 10/12/22 09:46 10/12/22 08:01 148/91 H 92 Room Air 10/12/22 04:11 154/83 H 92 Room Air Laboratory Results Short CBC 10/12/22 Range/Units 07:40 WBC 9.43 (4.8-10.8) K/ul Hgb 12.1 L (14.0-18.0) g/dl Hct 36.5 L (42.0-52.0) % Plt Count 312 (130-400) K/uL BMP 10/12/22 07:40 Sodium 141 Potassium 3.8 Chloride 103 Carbon Dioxide 27 BUN 60 H Creatinine 4.47 H D Glucose 113 H Calcium 8.8
[2022-10-13] MEDS: HEPARIN SOD 5,000 UNIT/0.5 ML VIAL SQ SCH ×3 (04:41→21:13)
[2022-10-13 07:55] LABS: BUN Creatinine Ratio 12.4 (10-20); Calcium 8.6 mg/dl (8.6-10.3); Creatinine Clr Calc Pharmacy 22.6 ml/min; Est GFR (African American) 16.7 ml/min; Est GFR (Non-African American) 14.4 ml/min; Potassium 4.1 mmol/L (3.5-5.1)
[2022-10-13] MEDS: INSULIN ASPART PER UNIT CHARGE SC SCH ×4 (10:06→21:12)
[2022-10-13] MEDS: CHOLECALCIFEROL 1,000 UNITS 25 MCG TAB PO SCH (10:13)
[2022-10-13] MEDS: CLOPIDOGREL BISULFATE 75 MG TAB PO SCH (10:13)
[2022-10-13] MEDS: ATORVASTATIN 40 MG TAB PO SCH (10:13)
[2022-10-13] MEDS: TOCOPHERYL, DL-ALPHA 400 UNITS 180 MG CAP PO SCH (10:13)
[2022-10-13] MEDS: ASPIRIN 81 MG ECTAB PO SCH (10:14)
[2022-10-13] MEDS: FUROSEMIDE 40 MG/4 ML VIAL IV SCH ×2 (10:14→17:29)
[2022-10-13] MEDS: EZETIMIBE 10 MG TABLET PO SCH (10:14)
[2022-10-13] MEDS: lisinopril 40 MG TAB PO SCH (10:14)
[2022-10-13] MEDS: amLODIPine BESYLATE 5 MG TAB PO SCH (10:14)
[2022-10-13] MEDS: POTASSIUM CHLORIDE CRTAB 20 MEQ TABCR PO SCH ×3 (11:04→21:27)
[2022-10-13] MEDS: LANTUS PER UNIT CHARGE SQ SCH ×2 (11:04→21:12)
--- NOTE | 2022-10-13 11:07 | Nephrology Progress Note ---
Date of Service October 13, 2022 Assessment & Plan Admission and Anticipated Discharge Date Admission Date: October 03, 2022 Subjective Assessment & Plan (1) HTN (hypertension): Plan: goal is sbp in 140-150s, blood pressure remains uncontrolled. Given change in renal function and ongoing volume overload and still uncontrolled blood pressure, he is likely to need dialysis soon and certainly needs ongoing diuresis right now. pt w/ nephrotic range proteinuria earlier this year, so blood pressure will likely be difficult to control (2) CKD (chronic kidney disease), stage IV: Plan: rapidly progressive CKD 4; high risk to need dialysis next days to weeks. CKD attributed to hypertension, diabetes, class III obesity historically. Rupal freeman was mid threes early July, up to September 22. Would not consider this acute kidney injury necessarily but progressive CKD. Concern for nephrotic syndrome emerging given that albuminuria worsened recently from 3 g daily in 2021 to 8 g daily in August. Note also albumin is only 2.7 after historically being near normal as recently as late 2021. Patient wishes to do dialysis at [facility] if need arises and is interested in home modalities. daily BMP Dialysis tomorrow for 3.5 hrs 1.5 kilo UF and 3k and use heparin Continue Same Diuretics for now. for discharge will put him back on torsemide higher dose of 100. BP drop last evening so stop amlodipine ( also because of Edema) Subjective Still has lot of edema. BP drop yesterday. CVC site is fine. tolerating fine. Lot of urine Review of Systems Review of Systems: All systems reviewed & are unremarkable except as noted in Subjective Physical Exam Constitutional: well developed, well nourished, + morbidly obese and cooperative; no acute distress Eyes: EOM intact bilaterally ENMT: Ears: no external ear abnormality Nose: no external nose abnormality Mouth: + dry oral mucous membranes Neck: no nuchal rigidity Respiratory: normal respiratory effort Auscultation: + diminished lung sounds Cardiovascular: Rate/Rhythm: regular rate and regular rhythm Extremities: + edema Gastrointestinal (Abdomen): Inspection/Auscultation: normal bowel sounds Percussion/Palpation: abdomen soft; abdomen nontender Musculoskeletal: Extremities: strength 5/5 throughout and + abnormal strength (L side weak) Skin: no rashes, warm and dry Neurologic: Left arm weak\not as precise for finer movement Results & Data Vital Signs (Past 12 Hours) Vital Signs Temp Pulse Pulse Pulse Resp BP Pulse Ox 10/13/22 11:02 36.3 C L 66 18 151/63 H 95 10/13/22 08:07 36.7 C 62 20 119/74 96 10/13/22 03:19 36.8 C 71 18 123/77 93 10/12/22 23:15 68 O2 Del Method 10/13/22 11:02 Room Air 10/13/22 08:07 Room Air 10/13/22 03:19 Room Air 10/12/22 23:15
[2022-10-13] MEDS: carvediloL 12.5 MG TAB PO SCH ×2 (12:55→17:29)
--- NOTE | 2022-10-13 13:13 | Hospitalist Progress Note ---
Date of Service October 13, 2022 Assessment & Plan (1) Left-sided weakness: (2) Diabetes mellitus, type II: (3) HTN (hypertension): (4) CKD (chronic kidney disease), stage IV: (5) JACOB (obstructive sleep apnea): Plan Patient is a 72 yr male with PMH of type 2 diabetes, CKD 4, type 2 diabetes, dyslipidemia, JACOB, h/o carotid artery dissection, hypertension, pancreatic cyst and other medical problems listed below who presents with intermittent left upper extremity weakness over the past week. Acute CVA Left hemiparesis Weakness and clumsiness of L hand for over 1 week, subtle LLE weakness noted over past few days -Head CT with no acute intracranial hemorrhage, midline shift or acute territorial infarct, involutional changes with chronic microvascular ischemic disease, age-indeterminate infarct within the L lentiform nucleus/external capsule, 3 cm -MRI Brain showed acute/subacute lacunar-type infarct in the right harris radiata --MRA Head:Unremarkable MR angiogram of the brain. TTE showed mild conc LVH, EF 60-65%, GI DD, AV sclerosis moderate. No ASD A1c is 6.7 Continue ASA 81mg. Started on plavix 75mg daily. Will do DAPT for 3 weeks then Plavix monotherapy afterwards Continue Atorvastatin 80mg daily Appreciate neurology input Rehab as able Continue PT OT Progressively feels better since admission Continue current management CKD IV Progressively worsening Cr per outpatient labs over the past couple of months previous Cr baseline ~mid 3s Replete electrolytes as needed Nephrology on board Cr 3.94 Today TDC placement by on 10/10/22 Discussed with nephrology today: Plan for discharge on torsemide Continue dialysis per nephrology Scheduled for dialysis tomorrow Needs to continue dialysis on Monday, Monday, Monday upon discharge Plan to discharge on torsemide 100 mg daily per nephrology COVID 19 Infection H/O JACOB No hypoxia CXR did not show any acute abnormalities Continue precautions and monitor Conservative management Off COVID-19 isolation today Left upper extremity swelling Likely IV infiltration Doppler:No deep venous thrombus within the left upper extremity. Swelling improved Continue diuretics/HD per Nephrology Resolved Hypertension Chlorthalidone and lasix recently discontinued Continue carvedilol 12.5 mg twice daily Appreciate nephrology input Amlodipine discontinued Also plan to be discharged on torsemide 100 mg daily DM II A1c 6.8 in July A1c 6.7 Basal/bolus insulin while in-patient per protocol BSG AC HS DVT Px: SQ heparin CODE STATUS Full code Disposition Rehab when accepted Case management to help with discharge planning Admission and Anticipated Discharge Date Admission Date: October 03, 2022 Subjective Patient is seen and examined at bedside BP relatively low overnight, asymptomatic Doing well this morning Discussed with nephrology today Denies any chest pain, dyspnea, dizziness, nausea, abdominal pain Off isolation today Discussed with patient's family at bedside Plan for dialysis tomorrow Review of Systems Review of Systems: All systems reviewed & are unremarkable except as noted in Subjective Physical Exam Physical Exam: Physical Exam: Vitals signs as noted above General Appearance:Morbidly Obese, no apparent distress Head: normocephalic, Atraumatic Eyes: normal inspection, EOMI Neck: supple, Trachea midline Respiratory/Chest: Decreased breath sounds, CTA, No accessory muscle use Cardiovascular: S1, S2, No murmur Abdomen/GI:Soft, Non tender, Bowel sounds present Extremities/Musculoskeletal:normal inspection, 1+ Pedal edema, left upper extremity swelling improved Neurologic/Psych:AAOX3, left upper and lower extremity 4/5 Skin: normal color, warm Results & Data Results & Data Vital Signs (Past 12 Hours) Vital Signs Temp Pulse Pulse Resp BP Pulse Ox O2 Del Method 10/13/22 11:02 36.3 C L 66 18 151/63 H 95 Room Air 10/13/22 08:07 36.7 C 62 20 119/74 96 Room Air 10/13/22 03:19 36.8 C 71 18 123/77 93 Room Air Laboratory Results [facility] 10/13/22 07:00 Sodium 139 Potassium 4.1 Chloride 103 Carbon Dioxide 28 BUN 49 H Creatinine 3.94 H D Glucose 123 H Calcium 8.6
[2022-10-14] MEDS: HEPARIN SOD 5,000 UNIT/0.5 ML VIAL SQ SCH (05:42)
[2022-10-14] MEDS ORDERED: SODIUM CHLORIDE 0.9% 1000ML 1,000 ML IV PRN (07:00)
[2022-10-14 08:27] VITALS: O2SAT 96
[2022-10-14 08:40] LABS: Hemoglobin 11.8 g/dl (14.0-18.0); Mean Corpuscular Hemoglobin 28.1 pg (25.0-34.0); Mean Corpuscular Hgb Conc 32.8 g/dL (32.0-36.0); Mean Corpuscular Volume 85.7 fL (80.0-100.0); Mean Platelet Volume 11.2 fL (9.4-12.4); Platelet Count 291 K/uL (130-400); RDW Coefficient of Variation 14.3 % (11.5-14.5); RDW Standard Deviation 44.3 fL (36.4-46.3); White Blood Count 9.42 K/ul (4.8-10.8)
[2022-10-14 09:00] LABS: BUN Creatinine Ratio 12.8 (10-20); Calcium 8.8 mg/dl (8.6-10.3); Creatinine Clr Calc Pharmacy 19.6 ml/min; Est GFR (African American) 14.1 ml/min; Est GFR (Non-African American) 12.2 ml/min; Magnesium 2.2 mg/dl (1.7-2.4); Phosphorus 5.6 mg/dl (2.5-4.9); Potassium 4.2 mmol/L (3.5-5.1)
--- NOTE | 2022-10-14 10:37 | Dialysis Progress Note ---
Date of Service October 14, 2022 Assessment & Plan Admission and Anticipated Discharge Date Admission Date: October 03, 2022 Subjective Assessment & Plan (1) HTN (hypertension): Plan: goal is sbp in 140-150s, blood pressure remains uncontrolled. Given change in renal function and ongoing volume overload and still uncontrolled blood pressure, he is likely to need dialysis soon and certainly needs ongoing diuresis right now. pt w/ nephrotic range proteinuria earlier this year, so blood pressure will likely be difficult to control (2) CKD (chronic kidney disease), stage IV: Plan: rapidly progressive CKD 4; high risk to need dialysis next days to weeks. CKD attributed to hypertension, diabetes, class III obesity historically. Rupal freeman was mid threes early July, up to September 22. Would not consider this acute kidney injury necessarily but progressive CKD. Concern for nephrotic syndrome emerging given that albuminuria worsened recently from 3 g daily in 2021 to 8 g daily in August. Note also albumin is only 2.7 after historically being near normal as recently as late 2021. Patient wishes to do dialysis at [facility] if need arises and is interested in home modalities. daily BMP Dialysis today for 3.5 hrs 2 kilo UF and 3k and use some heparin For discharge will put him back on torsemide higher dose of 100 BP dropping low now so will lower Coreg to 6.25 bid. May not even need this. This was nw med for him. continue Lisinopril 40 daily for now. [facility] and will need further adjustment of BP med there. Lower kcl to 20 daily. stop iv lasix Subjective Still has lot of edema. Seen in Dialysis. CVC site is fine. tolerating fine. BP now dropping low. Review of Systems Review of Systems: All systems reviewed & are unremarkable except as noted in Subjective Physical Exam Constitutional: well developed, well nourished, + morbidly obese and cooperative; no acute distress Eyes: EOM intact bilaterally ENMT: Ears: no external ear abnormality Nose: no external nose abnormality Mouth: + dry oral mucous membranes Neck: no nuchal rigidity Respiratory: normal respiratory effort Auscultation: + diminished lung sounds Cardiovascular: Rate/Rhythm: regular rate and regular rhythm Extremities: + edema Gastrointestinal (Abdomen): Inspection/Auscultation: normal bowel sounds Percussion/Palpation: abdomen soft; abdomen nontender Musculoskeletal: Extremities: strength 5/5 throughout and + abnormal strength (L side weak) Skin: no rashes, warm and dry Neurologic: Left arm weak\not as precise for finer movement Results & Data Vital Signs (Past 12 Hours) Vital Signs Temp Pulse Pulse Pulse Resp BP BP 10/14/22 10:00 64 104/77 10/14/22 09:30 60 90/58 L 10/14/22 08:45 68 103/67 10/14/22 09:00 66 105/68 10/14/22 08:30 65 91/48 L 10/14/22 08:27 69 122/76 10/14/22 08:22 36.7 C 70 10/14/22 09:29 65 10/14/22 08:27 36.6 C 70 16 146/87 H 10/14/22 03:28 36.6 C 70 20 120/68 10/14/22 01:26 66 10/13/22 22:49 36.7 C 68 20 112/71 Pulse Ox O2 Del Method 10/14/22 10:00 10/14/22 09:30 10/14/22 08:45 10/14/22 09:00 10/14/22 08:30 10/14/22 08:27 10/14/22 08:22 10/14/22 09:29 10/14/22 08:27 96 Room Air 10/14/22 03:28 94 Room Air 10/14/22 01:26 10/13/22 22:49 94 Room Air
[2022-10-14] MEDS: INSULIN ASPART PER UNIT CHARGE SC SCH ×2 (11:11→12:41)
[2022-10-14] MEDS: CLOPIDOGREL BISULFATE 75 MG TAB PO SCH (12:28)
[2022-10-14] MEDS: lisinopril 40 MG TAB PO SCH (12:28)
[2022-10-14] MEDS: TOCOPHERYL, DL-ALPHA 400 UNITS 180 MG CAP PO SCH (12:28)
[2022-10-14] MEDS: ATORVASTATIN 40 MG TAB PO SCH (12:29)
[2022-10-14] MEDS: EZETIMIBE 10 MG TABLET PO SCH (12:29)
[2022-10-14] MEDS: ASPIRIN 81 MG ECTAB PO SCH (12:29)
[2022-10-14] MEDS: CHOLECALCIFEROL 1,000 UNITS 25 MCG TAB PO SCH (12:30)
[2022-10-14 12:39] VITALS: BP 133/90; PULSE 63; TEMP 98.1
[2022-10-14] MEDS: LANTUS PER UNIT CHARGE SQ SCH (12:41)
[2022-10-14] MEDS: FUROSEMIDE 40 MG/4 ML VIAL IV SCH (12:44)
[2022-10-14] MEDS: carvediloL 12.5 MG TAB PO SCH (12:44)
[2022-10-14] MEDS: POTASSIUM CHLORIDE CRTAB 20 MEQ TABCR PO SCH (12:44)
--- NOTE | 2022-10-14 13:29 | Discharge Summary ---
Date of Service October 14, 2022 Admission HPI Per Admitting Provider This is a 72-year-old male with PMH of type 2 diabetes, CKD 4, type 2 diabetes, dyslipidemia, JACOB, h/o carotid artery dissection, hypertension, pancreatic cyst and other medical problems listed below who presents with intermittent left upper extremity weakness over the past week. Had weakness and numbness of L arm a week ago Monday evening that went away and then came back yesterday while resting. Hand felt heavy and clumsy, with his dexterity notably worsening this morning around 0700 when he could no longer button his shirt or tie his ponytail. Also admits that left leg has felt weaker over the past few days but is still been able to ambulate. No headache, lightheadedness, visual changes, falls, dysarthria or difficulty swallowing, chest pain, shortness of breath, nausea, vomiting, dumping, dysuria, diarrhea or constipation. Was seen by PCP a few days prior and has had a general decline of health since July. Has had worsening CKD and recent blood pressure medication changes such as discontinuation of chlorthalidone and Lasix. Admission Exam Per Admitting Provider General Appearance:WD/WN, vitals as above, NAD, sitting up in bed, pleasant, conversing easily, obese Head: normocephalic, atraumatic Eyes:normal inspection, PERRL, conjunctivae normal, anicteric sclerae ENT: external ear and nose normal, oropharynx normal Neck: normal visual inspection, trachea midline, no thyromegaly Respiratory:normal respiratory effort, decreased breath sounds bilaterally, no wheeze, rales, rhonchi. No accessory muscle use Cardiovascular: regular rate, rhythm, + murmur, normal peripheral pulses, + BLE edema. Vessels: no JVD Chest: normal inspection of chest Abdomen/GI: normal bowel sounds, soft, nontender, no hepatosplenomegaly Extremities/Musculoskeletal: no cyanosis or clubbing, moves all extremities, LUE and LLE 4/5, RUE/RLE 5/5 Neurologic: PERRL, EOMI, accommodation nl, no face palsy, no dysarthria, CN's II-XI intact bilaterally, + Pronator drift L, dysmetria on L [id number] test Psychiatric:A+Ox3, euthymic affect Skin: no rashes, normal color, warm/dry Principal Diagnosis Acute CVA ESRD on hemodialysis Discharge Exam General Appearance:Morbidly Obese, no apparent distress Head: normocephalic, Atraumatic Eyes: normal inspection, EOMI Neck: supple, Trachea midline Respiratory/Chest: Decreased breath sounds, CTA, No accessory muscle use Cardiovascular: S1, S2, No murmur Abdomen/GI:Soft, Non tender, Bowel sounds present Extremities/Musculoskeletal:normal inspection, 1+ Pedal edema, left upper extremity swelling improved Neurologic/Psych:AAOX3, left upper and lower extremity 4/5 Skin: normal color, warm Discharge Data Allergies Allergy/AdvReac Type Severity Reaction Status Date / Time No Known Drug Allergies Allergy . Unverified 10/03/22 15:39 egg yolk AdvReac Diarrhea Unverified 10/03/22 15:39 Consultations 10/03/22 14:15 ED Decision to Admit Stat 10/03/22 17:10 Consult Nephrology Routine 10/03/22 17:25 Consult Neurology Routine 10/07/22 11:05 Consult Vascular Surgery Routine Procedures Performed Operation Date: 10/10/22 11:40 Actual Procedures p Insertion of Perm Catheter Right Jugular Vein Approach, Ultrasound Localization of Right Jugular Vein, Fluoroscopy for Positioning, Moderate Sedation [id number](Right) - Liban Kinsey MD Ordered Studies 10/03/22 12:54 CT head/brain wo con Stat 10/03/22 14:29 US carotid doppler BI Urgent 10/03/22 15:47 MR brain wo con Routine 10/04/22 10:05 MR angio head wo con Urgent 10/06/22 12:37 US venous doppler UE LT Routine 10/10/22 07:08 EV cvc insrt tunnel wo prt/product support technician Routine US EV guide vascular access Routine Hospital Course (1) Left-sided weakness: (2) Diabetes mellitus, type II: (3) HTN (hypertension): (4) CKD (chronic kidney disease), stage IV: (5) JACOB (obstructive sleep apnea): Plan Patient is a 72 yr male with PMH of type 2 diabetes, CKD 4, type 2 diabetes, dyslipidemia, JACOB, h/o carotid artery dissection, hypertension, pancreatic cyst and other medical problems listed below who presents with intermittent left upper extremity weakness over the past week. He was admitted to the floor and w as managed for following conditions. 1) Acute CVA Left hemiparesis Presented with weakness and clumsiness of L hand for over 1 week, subtle LLE weakness noted over past few days -Head CT with no acute intracranial hemorrhage, midline shift or acute territorial infarct, involutional changes with chronic microvascular ischemic disease, age-indeterminate infarct within the L lentiform nucleus/external capsule, 3 cm -MRI Brain showed acute/subacute lacunar-type infarct in the right harris radiata --MRA Head:Unremarkable MR angiogram of the brain. TTE showed mild conc LVH, EF 60-65%, GI DD, AV sclerosis moderate. No ASD A1c is 6.7 During the hospitalization neurology was consulted; recommended continue ASA 81mg. Started on plavix 75mg daily. Will do DAPT for 3 weeks then Plavix monotherapy afterwards. Continue Atorvastatin 80mg daily. PT OT evaluation done; patient to be discharged to acute rehab. 2) ESRD on hemodialysis Progressively worsening Cr per outpatient labs over the past couple of months previous Cr baseline ~mid 3s Nephrology consulted the patient; recommended dialysis. TDC placement by Dr.Sim sims on 10/10/22. Needs to continue dialysis on Monday, Monday, Monday upon discharge. Plan to discharge on torsemide 100 mg daily per nephrology 3) COVID 19 Infection H/O JACOB No hypoxia CXR did not show any acute abnormalities Continue precautions and monitor Conservative management Off COVID-19 isolation today 4) Hypertension Blood pressure improved after initiation of hemodialysis. Amlodipine, Coreg was stopped. Continuation of lisinopril was done. Might need to decrease the dose depending on his blood pressure at rehab. 5) Type DM II A1c 6.7 Only basal insulin; NovoLog stopped. His blood glucose was well controlled during the hospitalization. Total Time Total Time Spent Total Time Spent (In Minutes): 45 Total Time Includes: Examination of the Patient, Discharge Planning, Medication Reconciliation, Communication With Other Providers and Other Discharge Plan Discharge Items Patient Disposition: Transfer Inpatient Rehab Fac Reason For Visit: LUE WEAKNESS Discharge Diagnosis: Acute CVA Left hemiparesis ESRD on hemodialysis COVID-19 infection Activity: Resume your previous activity Non-emergency contact: Primary Care Provider Call non-emergency contact if: you have any medication questions and your sy mptoms worsen Follow-up/Referrals: Agatha Beach DO [Primary Care Provider] - Diet: Dialysis Renal Addtl Attending Provider Instructions: You were admitted to the hospital with stroke. You are started on aspirin and Plavix once daily. Please take aspirin for 8 more days(to complete 21 days of dual antiplatelet therapy). Continue Plavix thereafter alone. You are also started on dialysis during the hospitalization. Please continue dialysis in the rehab 3 times a week as scheduled. Your blood pressure has been on the lower side during the hospitalization. Continue to take lisinopril 40 mg once daily for now. If your blood pressure decreases; adjustment of the dosing should be done. Your A1c was just 6.7%. Insulin dose has been adjusted. You are now started on Lantus once a day 12 units along with Ozempic. Please follow-up with her primary care doctor after discharge. Pending Studies at Discharge: No Stand-Alone Forms: My [facility] [employer], Medications to Prevent Stroke Skilled Items Patient informed of condition?: Yes DNR: No Discharge Level of Care: Acute rehab Communicable Disease: No Discharge Prognosis: Stable Lines: [place] Urinary Catheter: No Medications and DC Order Prescriptions: New clopidogrel 75 mg Tablet 75 mg PO QAM 30 Days Qty: 30 0RF insulin glargine [Lantus Solostar U-100 Insulin] 100 unit/mL (3 mL) insulin pen 12 unit subcut QAM Qty: 15 0RF torsemide 100 mg tablet 100 mg PO DAILY Qty: 30 0RF Continued atorvastatin 80 mg tablet 80 mg PO DAILY lisinopril 40 mg tablet 40 mg PO DAILY ezetimibe 10 mg tablet 10 mg PO QAM Ozempic 2 mg/dose (8 mg/3 mL) Pen Injector 2 mg SUBCUT WK Rx Instructions: monday sildenafil 50 mg tablet 50 mg PO DAILY MDD 50 mg PRN (Reason: Erectile Dysfunction) Rx Instructions: Take 1 tablet by mouth 1 to 4 hours before intercourse cholecalciferol (vitamin D3) 25 mcg (1,000 unit) Capsule 25 mcg PO DAILY vitamin E 400 unit Tablet 400 unit PO DAILY aspirin 81 mg Tablet,Delayed Release (Dr/Ec) 81 mg PO DAILY 8 Days Qty: 0 0RF Discontinued torsemide 20 mg tablet 20 mg PO DAILY potassium chloride 20 mEq tablet,ER particles/crystals 20 meq PO QAM amlodipine 10 mg tablet 5 mg PO DAILY insulin asp prt-insulin aspart [Novolog Mix 70-30FlexPen U-100] 100 unit/mL (70-30) insulin pen 40 unit SUBCUT QAM Rx Instructions: 40 units qam and 30 units qpm insulin asp prt-insulin aspart [Novolog Mix 70-30FlexPen U-100] 100 unit/mL (70-30) insulin pen 30 unit SUBCUT QPM Rx Instructions: 40 units qam and 30 units qpm Discharge Orders: Discharge Order (Routine); Ordered 10/14/22 Ordered By: Stevenson Berrios/Other Patient Handouts: Kidney Disease Potassium in Diet, Kidney Disease Calcium Phosphorus, Kidney Disease Protein, Kidney Disease Fluid Intake, Kidney Disease Limiting Sodium, Type 2 Diabetes Admission Data Admit Date/Time: 10/03/22 15:09 Attending Provider: Stevenson Lopez Admit Provider: Saba Brooks Primary Care Provider: Agatha Beach Other Providers: [facility] ; Jong Massey [facility] [place] ; Saba Brooks ; Heron Stevens ; Liban Kinsey ; Km Taylor Other Interventions: Discharge Summary Assessment (RN) Last Done: 10/14/22 13:25
[2022-10-14] MEDS ORDERED: carvediloL 6.25 MG TAB PO SCH (17:00)
[2022-10-15] MEDS ORDERED: POTASSIUM CHLORIDE CRTAB 20 MEQ TABCR PO SCH (09:00)
[2022-10-15] MEDS ORDERED: TORSEMIDE 100 MG TAB PO SCH (09:00)
== END 2022-10-14 15:30 | DRG 64 ==
LOC: ED 12:42 → 2S 15:09 → SUATTDRO 15:09 → 2S 15:52 → 2W 10-10 18:19 → 2N 10-11 02:50

== ENCOUNTER 2024-09-12 17:12 | Inpatient (IN) ==
[2024-09-12] MEDS: ONDANSETRON INJ 2 MG/ML 2 ML VIAL IV STA (17:29)
[2024-09-12] MEDS: MoRPHine SULFATE 4 MG/ML 1 ML CARP\\VIAL IV STA (17:31)
--- NOTE | 2024-09-12 17:32 | Emergency Department Note ---
Impression & Plan Non-ST elevation PR (NSTEMI), Chest pain, Atrial fibrillation with rapid ventricular response, Elevated troponin I level ED Provider Note NAME: GREER LINTON AGE: 74 SEX: M : 1950 ARRIVES VIA: Walk-In INFORMANT: Patient, ED PROVIDER(S): Pedro Friedman DO CHIEF COMPLAINT: Chest pain HPI: The patient is a 74-year-old male who is a history of coronary artery disease with stenting who presented to the emergency department for an evaluation of chest pain. The patient denies having any lower extremity swelling. He does complain of some shortness of breath and anxiety. He has a history of coronary artery disease and recently had a heart catheterization at [facility] in June of this year. He did not receive any new stents but he did receive some work on his previous stenting. He states he has no radiation of the pain. He is had intermittent episodes over the last few weeks. He was seen by his surveillance sensor officer. This was felt to be secondary to some degree of reflux. He had a proton pump inhibitor added to his regimen. The patient took multiple nitroglycerin tabs prior to coming to the emergency department. ROS: See above HPI for pertinent positives & negatives. A total of 10 systems reviewed and were otherwise negative. PAST MEDICAL HISTORY: See Below PAST SURGICAL HISTORY: See Below FAMILY HISTORY: See Below SOCIAL HISTORY: See Below HOME MEDICATIONS: See Below ALLERGIES: See Below VITALS: See Below PHYSICAL EXAMINATION: GENERAL: The patient is awake and alert. He very anxious. EYES: The conjunctivae are clear. The pupils are round and reactive. EARS, NOSE, MOUTH AND THROAT: The nose is without any evidence of any deformity. NECK: The neck is nontender and supple. RESPIRATORY: Normal respiratory effort is noted there is no evidence of wheezing rhonchi or rales CARDIOVASCULAR: Tachycardic and irregular heart sounds were noted to auscultation. There is no definite murmur noted. GASTROINTESTINAL: The abdomen is soft. Abdomen is nontender. MUSCULOSKELETAL/EXTREMITIES: There is no evidence of gross deformity full range of motion is noted in the hips and shoulders. SKIN: There is no obvious evidence of any rash. There are no petechiae, pallor or cyanosis noted. NEUROLOGIC: Patient is awake alert and oriented x3 MEDICAL DECISION MAKING: The patient is a 74-year-old male who has a history of coronary artery disease as well as peritoneal dialysis who presented to the emergency department for an evaluation of chest pain. The patient has a history of coronary artery disease he recently had a catheterization. He is not a candidate for any further catheterization or bypass according to his family. The patient's EKG showed ischemic changes that were very worrisome. I called the airplane tube builder immediately. He presented to the bedside and evaluated the patient. Recommendations were made for IV Lopressor IV fluids IV pain medication. The patient received aspirin. He still had significant pain. I discussed his condition with the on-call [facility]ist. They have agreed to evaluate the patient in the emergency department for further management and disposition. We do feel the patient's pain may be secondary to some rate related ischemia as well. The atrial fibrillation does appear to be new. Triage Nursing notes reviewed. Prior medical records reviewed Vital Signs: reviewed and remarkable for tachycardia. Differential diagnosis: Cardiac ischemia, aortic dissection, pulmonary embolism, pneumothorax, pneumonia, pericarditis, myocarditis, esophageal rupture, GERD, cholecystitis, pancreatitis, musculoskeletal, as well as other pathologies. ER treatment provided: See below Diagnostics interpreted by me: ECG: EKG was obtained in the emergency department. My interpretation is atrial fibrillation at 159 bpm. No PVCs were noted. Nonspecific ST segment elevations were noted in the inferior leads with diffuse ST depressions noted. T wave abnormalities were noted in the lateral leads. This was compared to a tracing from March 20, 2024. Significant changes have taken place including atrial fibrillation as well as the ST abnormalities. Cardiac Monitoring: An order was placed for continuous cardiac monitoring. The monitor shows a rate of 138 bpm with atrial fibrillation and RVR. Laboratory studies: As stated above and show below. Imaging studies: See below. Radiographic imaging was reviewed by myself Consultation(s): I discussed case with Dr. Corey who is on-call for interventional cardiology. I discussed this case with Dr. Bruce who is on-call for the [facility]ist group. ED COURSE: Procedures: none Critical Care: I have personally spent greater than 45 minutes of critical care time in the direct management of this patient. This includes bedside care, interpretation of diagnostic studies, and testing, discussion with consultants, patient, and family members, and other required patient management activities. This 45 minutes is in excess of all separately billable procedures. 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 Obesity due to excess calories with serious comorbidity Acute left hemiparesis Acute CVA (cerebrovascular accident) Acute left-sided muscle weakness (Acute) CKD (chronic kidney disease) (Acute) COVID-19 (Acute) Diabetes mellitus, type II JACOB (obstructive sleep apnea) HTN (hypertension) Left-sided weakness CKD (chronic kidney disease), stage IV Surgical History History of parathyroidectomy 2009 History of adenectomy 2013 @ [facility] [place] Family History Father , age 90 with prostate cancer Prostate cancer Mother , age 67 of congestive heart failure Heart disease Other Diabetes Social History Smoking Status: Former smoker Tobacco Type: Cigarettes Age Started Using Tobacco: 12; Age Quit Using Tobacco: 35; packs per day: 1; Hx Alcohol Use: No Hx Substance Use: No Preferred Language: French Communication Ability: Effective Partner Cco Required: No Beliefs That Will Affect Care: None Current Living Situation: Spouse current occupational status: retired 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 [employer] Feels Safe at Home: Yes Assistive Devices: Cane Allergies Allergies Allergy/AdvReac Type Severity Reaction Status Date / Time Sulfa (Sulfonamide Allergy Intermediate RASH/VOMITI Verified 09/12/24 18:14 Antibiotics) NG egg yolk AdvReac Intermediate Diarrhea Verified 09/12/24 18:14 UNKNOWN PHOSPHATE BINDER AdvReac Severe SEVERE Uncoded 09/12/24 18:14 DIARRHEA Home Meds Home Medications Medication Instructions Recorded Confirmed atorvastatin 80 mg tablet 80 mg PO DAILY 10/03/22 09/12/24 cholecalciferol (vitamin D3) 25 25 mcg PO DAILY 10/03/22 09/12/24 mcg (1,000 unit) capsule ezetimibe 10 mg tablet 10 mg PO QAM 10/03/22 09/12/24 semaglutide 2 mg/dose (8 mg/3 mL) 2 mg subcut WK 10/03/22 09/12/24 subcutaneous pen injector (Ozempic) ferric citrate 210 mg iron tablet 1,000 mg PO BID 09/12/24 09/12/24 (Auryxia) gentamicin 0.1 % topical cream 1 applic topical DIRECTED PRN 09/12/24 09/12/24 NEEDED iron sucrose 200 mg iron/10 mL 20 mg IV .[id number] 09/12/24 09/12/24 intravenous solution isosorbide mononitrate 120 mg 60 mg PO QAM 09/12/24 09/12/24 tablet,extended release 24 hr metoprolol succinate 25 mg 12.5 mg PO BID 09/12/24 09/12/24 tablet,extended release 24 hr nitroglycerin 0.4 mg sublingual 0.4 mg sublingual DIRECTED PRN 09/12/24 09/12/24 tablet Chest Pain pantoprazole 40 mg tablet,delayed 40 mg PO QAM 09/12/24 09/12/24 release ticagrelor 90 mg tablet (Brilinta) 90 mg PO BID 09/12/24 09/12/24 vitamin E 268 mg (400 unit) capsule 268 mg PO DAILY 09/12/24 09/12/24 Previous Rx's Medication Instructions Recorded aspirin 81 mg tablet,delayed 81 mg PO DAILY 8 days #0 tabs 10/14/22 release insulin glargine 100 unit/mL (3 12 unit (0.12 mL) subcut QAM #15 mL 10/14/22 mL) subcutaneous pen (Lantus Solostar U-100 Insulin) Results & Data (ED) Vital Signs Vital Signs - 24 hr 09/12/24 17:12 09/12/24 17:13 09/12/24 17:35 Temperature 36.4 C L Temperature Source Oral Pulse Rate 98 H Pulse Rate [Apical] 162 H Pulse Rate from SpO2 Sensor Pulse Strength [Apical] Normal Respiratory Rate 19 18 Respiratory Effort / Characteristics Non-Labored Spontaneous Non-Labored Spontaneous Respiratory Depth Normal Normal Respiratory Pattern Regular Blood Pressure 146/71 H Blood Pressure [Right Arm] 109/85 Blood Pressure Mean 96 Blood Pressure Mean [Right Arm] 93 Blood Pressure Position Sitting Pulse Oximetry 98 97 Oxygen Delivery Method Room Air Room Air Room Air Sepsis Recent Fever Within 48 Hours No Sepsis New/Unexplained Change in Mental Status No Sepsis Action Taken by Nursing No Action Required 09/12/24 17:37 09/12/24 17:41 09/12/24 17:49 Temperature Temperature Source Pulse Rate 153 H 165 H Pulse Rate [Apical] Pulse Rate from SpO2 Sensor 98 H Pulse Strength [Apical] Respiratory Rate 18 Respiratory Effort / Characteristics Respiratory Depth Respiratory Pattern Blood Pressure 109/85 109/85 Blood Pressure [Right Arm] Blood Pressure Mean 92 Blood Pressure Mean [Right Arm] Blood Pressure Position Pulse Oximetry 96 97 Oxygen Delivery Method Room Air Sepsis Recent Fever Within 48 Hours Sepsis New/Unexplained Change in Mental Status Sepsis Action Taken by Nursing 09/12/24 17:59 09/12/24 18:00 09/12/24 19:37 Temperature Temperature Source Pulse Rate 138 H 155 H 125 H Pulse Rate [Apical] Pulse Rate from SpO2 Sensor 121 H Pulse Strength [Apical] Respiratory Rate 22 19 Respiratory Effort / Characteristics Respiratory Depth Respiratory Pattern Blood Pressure 107/79 107/79 94/65 L Blood Pressure [Right Arm] Blood Pressure Mean 90 84 Blood Pressure Mean [Right Arm] Blood Pressure Position Pulse Oximetry 92 Oxygen Delivery Method Sepsis Recent Fever Within 48 Hours Sepsis New/Unexplained Change in Mental Status Sepsis Action Taken by Nursing 09/12/24 20:33 09/12/24 21:10 Temperature Temperature Source Pulse Rate 107 H 116 H Pulse Rate [Apical] Pulse Rate from SpO2 Sensor 71 Pulse Strength [Apical] Respiratory Rate 14 Respiratory Effort / Characteristics Respiratory Depth Respiratory Pattern Blood Pressure 81/57 L 81/57 L Blood Pressure [Right Arm] Blood Pressure Mean 62 Blood Pressure Mean [Right Arm] Blood Pressure Position Pulse Oximetry 93 Oxygen Delivery Method Sepsis Recent Fever Within 48 Hours Sepsis New/Unexplained Change in Mental Status Sepsis Action Taken by [facility] Medications Current Medication List: was personally reviewed by me Laboratory Data Attestation: I reviewed the patient's lab results. 09/12/24 17:32 09/12/24 17:32 Lab Results 09/12/24 09/12/24 09/12/24 Range/Units 17:32 19:20 21:14 WBC 14.13 H (4.8-10.8) K/ul RBC 4.37 L (4.70-6.10) M/uL Hgb 13.4 L (14.0-18.0) g/dl Hct 39.7 L (42.0-52.0) % MCV 90.8 (80.0-100.0) fL MCH 30.7 (25.0-34.0) pg MCHC 33.8 (32.0-36.0) g/dL RDW Std Deviation 43.4 (36.4-46.3) fL RDW Coeff of Isai 13.1 (11.5-14.5) % Plt Count 246 (130-400) K/uL MPV 11.1 (9.4-12.4) fL Immature Gran % (Auto) 0.6 % Neut % (Auto) 65.7 % Lymph % (Auto) 24.0 % [place] % (Auto) 7.5 % Eos % (Auto) 1.9 % Baso % (Auto) 0.3 % Neut # (Auto) 9.29 H (1.40-6.50) K/uL Lymph # (Auto) 3.39 (1.20-3.40) K/uL [place] # (Auto) 1.06 H (0.11-0.59) K/uL Eos # (Auto) 0.27 (0.00-0.50) K/uL Baso # (Auto) 0.04 (0.00-0.20) K/uL Immature Gran # (Auto) 0.08 (0.01-0.20) K/uL PT 11.4 (9.0-12.0) Seconds INR 1.1 (0.9-1.1) APTT 26 (21-31) Seconds PTT Ratio 1.0 Sodium 138 (136-145) mmol/L Potassium 4.3 (3.5-5.1) mmol/L Chloride 94 L (98-107) mmol/L Carbon Dioxide 21 (21-32) mmol/L Anion Gap 23 H (3-11) BUN 83 H (6-23) mg/dl Creatinine 14.23 H* (0.6-1.4) mg/dl Est Cr Clr Drug Dosing 5.8 ml/min eGFR 3.28 BUN/Creatinine Ratio 5.8 L (10-20) Glucose 228 H (70-99(Fasting)) mg/dl POC Glucose 178 H (70-99) mg/dl Calcium 9.4 (8.6-10.3) mg/dl Total Bilirubin 0.7 (0.2-1.0) mg/dl AST 6 L (13-39) U/L ALT 10 (7-52) U/L Alkaline Phosphatase 89 (34-104) U/L Troponin I High Sens 275.9 H* 676.7 H* D (0-20) pg/ml Total Protein 8.2 (6.0-8.3) gm/dl Albumin 4.1 (3.4-5.0) gm/dl Globulin 4.1 H (2.5-4.0) gm/dl Albumin/Globulin Ratio 1.0 (0.9-2) Lipase 367 H (11-82) U/L Administered Medications Heparin Sodium/Dextrose (Heparin 35165 Unit/500 Ml D5w) 25,000 units in 500 mls @ 20 mls/hr IV .Q24H [facility]; Protocol Stop: 10/12/24 18:14 Last Admin: 09/12/24 18:11 Dose: 1,000 units/hr, 20 mls/hr Documented By: BURAK Co-signed By: ANDREA Diltiazem HCl 125 mg/ Dextrose 125 mls @ 5 mls/hr IV .Q24H [facility]; Protocol Stop: 10/12/24 19:14 Last Admin: 09/12/24 19:57 Dose: 5 mg/hr, 5 mls/hr Documented By: BURAK Co-signed By: KEVIN Insulin Aspart (Insulin Aspart Per Unit Charge) 0 units SC ACHS [facility] Stop: 10/12/24 20:59 Last Admin: 09/12/24 21:19 Dose: Not Given Documented By: JANET Co-signed By: KEVIN Insulin Glargine (Lantus Per Unit Charge) 10 units SQ HS [facility] Stop: 10/12/24 20:59 Last Admin: 09/12/24 21:22 Dose: 10 units Documented By: JANET Co-signed By: KEVIN Metoprolol Tartrate (Metoprolol Tartrate 25 Mg Tab) 25 mg PO QID BRITTANIE Stop: 10/12/24 17:29 Last Admin: 09/12/24 21:09 Dose: Not Given Documented By: Admin: 09/12/24 19:57 Dose: 25 mg Documented By: BURAK Discontinued Medications Al Hydrox/Mg Hydrox/Simethicone (Aluminum/Magnesium Susp 30 Ml Udc) 30 ml PO NOW STA Stop: 09/12/24 17:21 Last Admin: 09/12/24 17:37 Dose: 30 ml Documented By: MITRA Aspirin (Aspirin Chew 324 Mg) 324 mg PO NOW STA Stop: 09/12/24 17:21 Last Admin: 09/12/24 17:33 Dose: 324 mg Documented By: MITRA Diltiazem HCl (Diltiazem Hcl 5 Mg/Ml 5 Ml Vial) 20 mg IV NOW STA Stop: 09/12/24 19:14 Last Admin: 09/12/24 20:00 Dose: 20 mg Documented By: BURAK Co-signed By: KEVIN Esmolol HCl (Esmolol Bolus From Bag) 0.5 mg IV ONE ONE Stop: 09/12/24 18:02 Last Admin: 09/12/24 18:14 Dose: 0.5 mg Documented By: BURAK Co-signed By: ANDREA Heparin Sodium/Dextrose (Heparin Iv Adult Wt-Based Low-Dose *No* Initial Bolus Protocol) 1 each IV ONE STA; Protocol Stop: 09/12/24 17:56 Last Admin: 09/12/24 18:15 Dose: Not Given Documented By: BURAK Hydromorphone HCl (Hydromorphone Inj 0.5 Mg/0.5 Ml Syr) 0.5 mg IV Q15M PRN PRN Reason: Pain Stop: 09/26/24 17:54 Last Admin: 09/12/24 20:27 Dose: 0.5 mg Documented By: Admin: 09/12/24 19:55 Dose: 0.5 mg Documented By: Admin: 09/12/24 18:17 Dose: 0.5 mg Documented By: Admin: 09/12/24 17:58 Dose: 0.5 mg Documented By: MITRA Sodium Chloride (Nss) 500 mls @ 999 mls/hr IV .Q31M ONE Stop: 09/12/24 18:06 Last Infusion: 09/12/24 18:20 Dose: Infused Documented By: Admin: 09/12/24 17:44 Dose: 999 mls/hr Documented By: MITRA Esmolol HCl (Brevibloc) 2,500 mg in 250 mls @ 33.3 mls/hr IV .Q7H31M [facility]; Protocol Stop: 10/12/24 18:14 Last Titration: 09/12/24 18:45 Dose: Infused Documented By: Admin: 09/12/24 18:11 Dose: 50 mcg/kg/min, 33.3 mls/hr Documented By: BURAK Co-signed By: ANDREA Sodium Chloride (Nss) 250 mls @ 999 mls/hr IV .Q16M ONE Stop: 09/12/24 21:06 Last Admin: 09/12/24 21:16 Dose: 999 mls/hr Documented By: JANET Promethazine HCl (Phenergan) 12.5 mg in 50.5 mls @ 202 mls/hr IV NOW STA Stop: 09/12/24 21:29 Last Admin: 09/12/24 21:23 Dose: 202 mls/hr Documented By: JANET Metoprolol Tartrate (Metoprolol Tartrate 1 Mg/Ml Vial) 5 mg IV NOW STA Stop: 09/12/24 17:30 Last Admin: 09/12/24 17:41 Dose: 5 mg Documented By: MITRA Metoprolol Tartrate (Metoprolol Tartrate 1 Mg/Ml Vial) 5 mg IV NOW STA Stop: 09/12/24 17:56 Last Admin: 09/12/24 17:59 Dose: 5 mg Documented By: MITRA Ramirez (Stat Iv Infusion Titration Per Protocol) 1 each N/A NOW STA Stop: 09/12/24 18:02 Last Admin: 09/12/24 18:15 Dose: Not Given Documented By: BURAK Ramirez (Stat Iv Infusion Titration Per Protocol) 1 each N/A NOW STA Stop: 09/12/24 19:14 Last Admin: 09/12/24 21:09 Dose: Not Given Documented By: JANET Morphine Sulfate (Morphine Sulfate 4 Mg/Ml 1 Ml Carp\Vial) 4 mg IV NOW STA Stop: 09/12/24 17:23 Last Admin: 09/12/24 17:31 Dose: 4 mg Documented By: MITRA Ondansetron HCl (Ondansetron Inj 2 Mg/Ml 2 Ml Vial) 4 mg IV NOW STA Stop: 09/12/24 17:23 Last Admin: 09/12/24 17:29 Dose: 4 mg Documented By: MITRA Imaging Data Attestation: I personally reviewed and interpreted this imaging study as follows: My Impression: 1 view chest x-ray was obtained in the emergency department. My interpretation is no free air or definite infiltrate, final report below. Radiologist's Impression: Chest X-Ray 09/12/24 17:17 EXAM: X-ray chest one-view portable CLINICAL HISTORY: Cough dyspnea PRIORS: 10/03/2022 TECHNIQUE: Frontal view chest FINDINGS: Lung volumes are diminished. No airspace consolidation, effusion or congestive changes. Heart size is normal. No pneumothorax. Trachea is patent. Osseous structures demonstrate no acute abnormality. No radiopaque foreign body. IMPRESSION: No plain film evidence of an acute cardiopulmonary process. Electronically signed by Kathy Spring 09-12-2024 6:03 PM Discharge Plan Visit Data Chief Complaint: Chest Pain Stated Complaint: CHEST PAIN, TOOK NITRO X3 ED Provider: Pedro Friedman Discharge Problem: Non-ST elevation PR (NSTEMI), Chest pain, Atrial fibrillation with rapid ventricular response, Elevated troponin I level Patient Disposition: Home - Self-Care Forms Stand Alone Forms: [facility], Important Visit Information Prescriptions Prescriptions: No Action atorvastatin 80 mg tablet 80 mg PO DAILY ezetimibe 10 mg tablet 10 mg PO QAM Ozempic 2 mg/dose (8 mg/3 mL) Pen Injector 2 mg SUBCUT WK Rx Instructions: MONDAY cholecalciferol (vitamin D3) 25 mcg (1,000 unit) Capsule 25 mcg PO DAILY insulin glargine [Lantus Solostar U-100 Insulin] 100 unit/mL (3 mL) insulin pen 12 unit subcut QAM Qty: 15 0RF aspirin 81 mg Tablet,Delayed Release (Dr/Ec) 81 mg PO DAILY 8 Days Qty: 0 0RF isosorbide mononitrate 120 mg tablet extended release 24 hr 60 mg PO QAM pantoprazole 40 mg tablet,delayed release (DR/EC) 40 mg PO QAM nitroglycerin 0.4 mg tablet, sublingual 0.4 mg sublingual DIRECTED PRN (Reason: Chest Pain) gentamicin 0.1 % cream 1 applic TOPICAL DIRECTED PRN (Reason: NEEDED) metoprolol succinate 25 mg tablet extended release 24 hr 12.5 mg PO BID vitamin E 268 mg (400 unit) Capsule 268 mg PO DAILY iron sucrose 200 mg iron/10 mL Solution 20 mg IV .[id number] Rx Instructions: GIVEN AT DIALYSIS administer over 30 mins Brilinta 90 mg tablet 90 mg PO BID ferric citrate [Auryxia] 210 mg iron Tablet 1,000 mg PO BID Rx Instructions: BREAKFAST & LUNCH. administer with a meal Referrals Referrals: Agatha Beach, [Primary Care Provider] -
[2024-09-12] MEDS: ASPIRIN CHEW 324 MG PO STA (17:33)
[2024-09-12] MEDS: ALUMINUM/MAGNESIUM SUSP 30 ML UDC PO STA (17:37)
[2024-09-12] MEDS: METOPROLOL TARTRATE 1 MG/ML VIAL IV STA ×2 (17:41→17:59)
[2024-09-12] MEDS: SODIUM CHLORIDE 0.9% 500 ML IV ONE (17:44)
[2024-09-12 17:46] LABS: Basophils # (auto) 0.04 K/uL (0.00-0.20); Basophils % (auto) 0.3 %; Eosinophils # (auto) 0.27 K/uL (0.00-0.50); Eosinophils % (auto) 1.9 %; Hematocrit (blood only) 39.7 % (42.0-52.0); Hemoglobin 13.4 g/dl (14.0-18.0); Immature Granulocytes # (auto) 0.08 K/uL (0.01-0.20); Immature Granulocytes % (auto) 0.6 %; Lymphocytes # (auto) 3.39 K/uL (1.20-3.40); Mean Corpuscular Hemoglobin 30.7 pg (25.0-34.0); Mean Corpuscular Hgb Conc 33.8 g/dL (32.0-36.0); Mean Corpuscular Volume 90.8 fL (80.0-100.0); Mean Platelet Volume 11.1 fL (9.4-12.4); Monocytes # (auto) 1.06 K/uL (0.11-0.59); Monocytes % (auto) 7.5 %; Neutrophils # (auto) 9.29 K/uL (1.40-6.50); Neutrophils % (auto) 65.7 %; Platelet Count 246 K/uL (130-400); RDW Coefficient of Variation 13.1 % (11.5-14.5); RDW Standard Deviation 43.4 fL (36.4-46.3); Red Blood Count 4.37 M/uL (4.70-6.10); White Blood Count 14.13 K/ul (4.8-10.8)
[2024-09-12] MEDS: HYDROmorphone INJ 0.5 MG/0.5 ML SYR IV PRN (17:58)
--- NOTE | 2024-09-12 18:03 | XRay Report ---
EXAM: X-ray chest one-view portable CLINICAL HISTORY: Cough dyspnea PRIORS: 10/03/2022 TECHNIQUE: Frontal view chest FINDINGS: Lung volumes are diminished. No airspace consolidation, effusion or congestive changes. Heart size is normal. No pneumothorax. Trachea is patent. Osseous structures demonstrate no acute abnormality. No radiopaque foreign body. IMPRESSION: No plain film evidence of an acute cardiopulmonary process. Electronically signed by Kathy Spring 09-12-2024 6:03 PM
[2024-09-12 18:06] LABS: Albumin Level 4.1 gm/dl (3.4-5.0); BUN Creatinine Ratio 5.8 (10-20); Bilirubin,Total 0.7 mg/dl (0.2-1.0); Calcium 9.4 mg/dl (8.6-10.3); Creatinine Clr Calc Pharmacy 5.8 ml/min; Globulin 4.1 gm/dl (2.5-4.0); Potassium 4.3 mmol/L (3.5-5.1); Total Protein 8.2 gm/dl (6.0-8.3)
[2024-09-12] MEDS: ESMOLOL / NSS 2,500 MG/250 ML BAG IV SCH (18:11)
[2024-09-12] MEDS: HEPARIN 25000 UNIT/500 ML D5W 25,000 UNITS/500 ML BAG IV SCH (18:11)
[2024-09-12] MEDS: ESMOLOL BOLUS FROM BAG IV ONE (18:14)
[2024-09-12] MEDS: Heparin IV Adult Wt-Based Low-Dose *NO* INITIAL Bolus Protocol IV STA (18:15)
[2024-09-12] MEDS: STAT IV Infusion **Titration per Protocol STA ×2 (18:15→21:09)
[2024-09-12 18:18] LABS: INR 1.1 (0.9-1.1); Partial Thromboplastin Time 26 Seconds (21-31); Prothrombin Time 11.4 Seconds (9.0-12.0)
[2024-09-12 18:28] LABS: Troponin I High Sensitivity 275.9 pg/ml (0-20)
[2024-09-12] MEDS ORDERED: HYDROmorphone INJ 0.5 MG/0.5 ML SYR IV PRN (19:36)
[2024-09-12] MEDS ORDERED: GLUCOSE 40% GEL 15 GM TUBE PO PRN (19:36)
[2024-09-12] MEDS ORDERED: ACETAMINOPHEN 325 MG TAB PO PRN (19:36)
[2024-09-12] MEDS ORDERED: CARBOHYDRATES FOR HYPOGLYCEMIA PO PRN (19:36)
[2024-09-12] MEDS ORDERED: GLUCOSE 10 TAB/TUBE PO PRN (19:36)
[2024-09-12] MEDS ORDERED: GLUCAGON FOR INJ 1 MG VIAL SQ PRN (19:36)
[2024-09-12] MEDS ORDERED: DEXTROSE 50% 50 ML SYRINGE IV PRN (19:36)
--- NOTE | 2024-09-12 19:46 | Cardiology Consultation ---
Date of Consultation September 12, 2024 Assessment & Plan (1) Non-ST elevation IL (NSTEMI): Patient with history of triple-vessel CAD post PCI 2 months ago with known significant residual disease. Has reported limited additional revascularization options. Stuttering chest pain for days now with persistent pain in the setting of new A- fib with RVR for last 3+hrs. Hemodynamically stable. No signs of heart failure on exam or chest x-ray. ECG changes seem most consistent with global demand ischemia in the setting of chronic multivessel CAD and A-fib with RVR but cannot rule out new acute coronary disease. Recommendations: Recommend initial trial of rate control. Start heparin infusion Consider IV/topical nitrates as BP allows Admit to the ICU, serial ECGs for change in symptoms Continue current aspirin, ticagrelor Based on history feel that if he were to need intervention would likely require equipment at tertiary center ([facility]). If refractory symptoms after rate control would consider IABP and transfer. History of Present Illness History of Present Illness Mr. Limon is a 74-year-old man with complex CAD, ICM with EF 46% with large apical, inferior wall motion abnormalities, end-stage renal disease on peritoneal dialysis, type 2 diabetes who presented to [facility] ED with acute onset chest pain. Cardiology called to bedside in ED due to ongoing pain and initial ECG with dynamic ST changes. Patient followed by Dr. Sheets for his cardiac care. Has known triple-vessel disease with multiple LAD and circumflex stents. Sounds to have distal LAD occlusion as well as heavily calcified possible RCA ACID BLOWER. Most recently underwent PCI 06/2024 at [facility] with Dr. Cruz with stents to circumflex territory. Patient thought to be high risk CABG candidate. Per report from family possible high risk repeat intervention has been considered back at [place]. More recently has been having intermittent chest discomfort over the last few days. Reports that several nights ago had to take 9 sublingual nitroglycerin. Today around 2 PM had gradual onset substernal chest pain which has progressed now severe 9 out of 10. On presentation noted to be in new atrial fibrillation with RVR to the 150s with borderline ST elevation inferiorly, ST depression laterally and elevation in aVR. Blood pressures in the 100s over 70s to 80s Allergies Allergy/AdvReac Type Severity Reaction Status Date / Time Sulfa (Sulfonamide Allergy Intermediate RASH/VOMITI Verified 09/12/24 18:14 Antibiotics) NG egg yolk AdvReac Intermediate Diarrhea Verified 09/12/24 18:14 UNKNOWN PHOSPHATE BINDER AdvReac Severe SEVERE Uncoded 09/12/24 18:14 DIARRHEA Home Medications Medication Instructions Recorded Confirmed Type atorvastatin 80 mg tablet 80 mg PO DAILY 10/03/22 09/12/24 History cholecalciferol (vitamin D3) 25 25 mcg PO DAILY 10/03/22 09/12/24 History mcg (1,000 unit) capsule ezetimibe 10 mg tablet 10 mg PO QAM 10/03/22 09/12/24 History semaglutide 2 mg/dose (8 mg/3 mL) 2 mg subcut WK 10/03/22 09/12/24 History subcutaneous pen injector (Ozempic) aspirin 81 mg tablet,delayed 81 mg PO DAILY 8 days #0 tabs 10/14/22 09/12/24 Rx release insulin glargine 100 unit/mL (3 12 unit (0.12 mL) subcut QAM #15 mL 10/14/22 09/12/24 Rx mL) subcutaneous pen (Lantus Solostar U-100 Insulin) ferric citrate 210 mg iron tablet 1,000 mg PO BID 09/12/24 09/12/24 History (Auryxia) gentamicin 0.1 % topical cream 1 applic topical DIRECTED PRN 09/12/24 09/12/24 History NEEDED iron sucrose 200 mg iron/10 mL 20 mg IV .[id number] 09/12/24 09/12/24 History intravenous solution isosorbide mononitrate 120 mg 60 mg PO QAM 09/12/24 09/12/24 History tablet,extended release 24 hr metoprolol succinate 25 mg 12.5 mg PO BID 09/12/24 09/12/24 History tablet,extended release 24 hr nitroglycerin 0.4 mg sublingual 0.4 mg sublingual DIRECTED PRN 09/12/24 09/12/24 History tablet Chest Pain pantoprazole 40 mg tablet,delayed 40 mg PO QAM 09/12/24 09/12/24 History release ticagrelor 90 mg tablet (Brilinta) 90 mg PO BID 09/12/24 09/12/24 History vitamin E 268 mg (400 unit) capsule 268 mg PO DAILY 09/12/24 09/12/24 History Patient History Surgical History History of parathyroidectomy 2010 History of adenectomy 2013 @ [facility] [place] Family History Father , age 90 with prostate cancer Prostate cancer Mother , age 67 of congestive heart failure Heart disease Other Diabetes Social History Smoking Status: Never smoker Tobacco Type: Cigarettes Age Started Using Tobacco: 12; Age Quit Using Tobacco: 35; packs per day: 1; Hx Alcohol Use: Yes Alcohol type: hard liquor Hx Substance Use: No Preferred Language: Nepali Communication Ability: Effective Finisher Brush Required: No Beliefs That Will Affect Care: None Current Living Situation: Spouse current occupational status: retired 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 [employer] Feels Safe at Home: Yes Assistive Devices: Cane and Walker Review of Systems Review of Systems: All systems reviewed & are unremarkable except as noted in HPI & below Physical Exam Physical Exam: General: Uncomfortable HEENT: Sclerae anicteric Lungs: Clear to auscultation bilaterally, no crackles or wheezes Cardiac: Tachycardic irregular irregular Vascular: 2+ radial on right Abdomen: Soft, nontender Extremities: Well perfused Neuro: Nonfocal Psych: Alert orient x3, normal affect and mood Results & Data Vital Signs (Past 12 Hours) Vital Signs Temp Pulse Pulse Resp BP BP Pulse Ox 09/12/24 17:59 138 H 107/79 09/12/24 17:49 97 09/12/24 17:41 165 H 109/85 09/12/24 17:35 162 H 18 109/85 97 09/12/24 17:13 97.5 F L 98 H 19 146/71 H 98 09/12/24 17:12 O2 Del Method 09/12/24 17:59 09/12/24 17:49 Room Air 09/12/24 17:41 09/12/24 17:35 Room Air 09/12/24 17:13 Room Air 09/12/24 17:12 Room Air PG Care Time/CCT Total # of Minutes Spent Total Time Spent with Patient: Total time spent is greater than 50% in coordination of care (as documented) at patient's floor/unit and/or counseling patient: Coding Level of Care Code 67878 ER DEPT VISIT MOD LVL 4 Diagnoses Non-ST elevation IL (NSTEMI) I21.4
--- NOTE | 2024-09-12 19:52 | History & Physical Report ---
Date of Service September 12, 2024 Assessment & Plan (1) Atrial fibrillation with rapid ventricular response: Plan Assessment/plan Atrial fibrillation with RVR Demand ischemia History of CAD status post stent placement Patient presented to the hospital with intermittent chest pain EKG on admission consistent with atrial fibrillation with rapid ventricular rate along with ST and T wave changes ED provider will discussed with Dr. Corey from cardiology; recommended esmolol and heparin drip Echocardiogram done in March 2024 showed EF of 46%; large size apical, septal, anteroseptal and inferior wall motion abnormality with hypokinesis to decline disease of the segments. Grade 1 diastolic dysfunction. Will start patient on Cardizem drip; titrate as needed with goal ventricular rate around 90s to 100s. Will also start on metoprolol tartrate 25mg qid. Continue on heparin drip; will likely need to be bridged over oral anticoagulation in next few days. If the ventricular rate is not controlled with current meds; will attempt trial of digoxin. Continue Brilinta; hold aspirin. Obtain echocardiogram Continue telemonitoring Elevated lipasepatient denies abdominal pain; lipase likely elevated in setting of Ozempic ESRD on peritoneal dialysisnephrology consulted for comanagement GERDcontinue on Protonix Hyperlipidemiacontinue on Lipitor, Zetia Type 2 diabetes mellituscontinue on insulin CADrecently stent placed in June 2024; continue on Brilinta . Imdur on hold for now Full code DVT prophylaxis heparin Plan of care discussed with patient's daughter and at bedside. Answer questions/queries Time spent evaluating patient, direct bedside care, chart review, placing orders, interpretation of diagnostic studies, discussion with consultants, patient, and family members, as well as other required patient management activities is 90 minutes Please note the above document was generated using voice recognition software. It may contain grammatical, syntax or spelling errors. Any formal questions or concerns about the content, text or information contained within the body of this dictation should be directly addressed to the provider for clarification History of Present Illness Chief Complaint: Chest pain for 1 day Primary Care Provider: Agatha Beach, History obtained from interview with the patient and chart review; Past medical history of multivessel coronary artery disease status post stent placement in December 2023 in left anterior descending and circumflex/circumflex obtuse marginal. 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 He is on metoprolol 12.5 mg twice daily, Protonix 40 mg once a day, ferric citrate 1 g twice a day, Brilinta 90 mg twice a day, isosorbide mononitrate 60 mg once a day, Lipitor 80 mg once a day, Zetia 10 mg once a day, insulin glargine 12 units in the morning, aspirin 81 mg Patient presents to the hospital with chest pain that started around 2 PM; patient took multiple nitrates with intermittent relief but the pain did not resolve which prompted him to come to the ED. He reports that he had similar episodes of chest pain intermittently since last 1 week which had resolved spontaneously with nitrates. He was recently started on Protonix for possible GERD as well. He denies palpitations, shortness of breath, fever, chills, abdominal pain. He also reports history of intermittent hematuria recently for which he is being planned for possible cystoscopy as outpatient. On presentation to the ED; patient was found to have atrial fibrillation with RVR with ventricular rate of 159; nonspecific ST segment elevation noted in in ferior lead, T wave abnormality noted in lateral lead. ED provider discussed the case with Dr. Corey from cardiology; who recommended esmolol drip for atrial fibrillation along with heparin drip. Upon evaluation, patient continued to have atrial fibrillation with RVR despite being on esmolol with ventricular rate of 130s to 140s. Discussion was done with on-call cardiology over the phone; patient was started on Cardizem drip and metoprolol as per recommendation. Allergies Allergy/AdvReac Type Severity Reaction Status Date / Time Sulfa (Sulfonamide Allergy Intermediate RASH/VOMITI Verified 09/12/24 18:14 Antibiotics) NG egg yolk AdvReac Intermediate Diarrhea Verified 09/12/24 18:14 UNKNOWN PHOSPHATE BINDER AdvReac Severe SEVERE Uncoded 09/12/24 18:14 DIARRHEA Home Medications Medication Instructions Recorded Confirmed Type atorvastatin 80 mg tablet 80 mg PO DAILY 10/03/22 09/12/24 History cholecalciferol (vitamin D3) 25 25 mcg PO DAILY 10/03/22 09/12/24 History mcg (1,000 unit) capsule ezetimibe 10 mg tablet 10 mg PO QAM 10/03/22 09/12/24 History semaglutide 2 mg/dose (8 mg/3 mL) 2 mg subcut WK 10/03/22 09/12/24 History subcutaneous pen injector (Ozempic) aspirin 81 mg tablet,delayed 81 mg PO DAILY 8 days #0 tabs 10/14/22 09/12/24 Rx release insulin glargine 100 unit/mL (3 12 unit (0.12 mL) subcut QAM #15 mL 10/14/22 09/12/24 Rx mL) subcutaneous pen (Lantus Solostar U-100 Insulin) ferric citrate 210 mg iron tablet 1,000 mg PO BID 09/12/24 09/12/24 History (Auryxia) gentamicin 0.1 % topical cream 1 applic topical DIRECTED PRN 09/12/24 09/12/24 History NEEDED iron sucrose 200 mg iron/10 mL 20 mg IV .[id number] 09/12/24 09/12/24 History intravenous solution isosorbide mononitrate 120 mg 60 mg PO QAM 09/12/24 09/12/24 History tablet,extended release 24 hr metoprolol succinate 25 mg 12.5 mg PO BID 09/12/24 09/12/24 History tablet,extended release 24 hr nitroglycerin 0.4 mg sublingual 0.4 mg sublingual DIRECTED PRN 09/12/24 09/12/24 History tablet Chest Pain pantoprazole 40 mg tablet,delayed 40 mg PO QAM 09/12/24 09/12/24 History release ticagrelor 90 mg tablet (Brilinta) 90 mg PO BID 09/12/24 09/12/24 History vitamin E 268 mg (400 unit) capsule 268 mg PO DAILY 09/12/24 09/12/24 History Past Med/Surg History Problem List (Updated 09/12/24 @ 18:42 by Pedro Friedman DO) Elevated troponin I level (Acute) Atrial fibrillation with rapid ventricular response (Acute) Chest pain (Acute) Non-ST elevation MA (NSTEMI) (Acute) End stage renal disease 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 Obesity due to excess calories with serious comorbidity Acute left hemiparesis Acute CVA (cerebrovascular accident) Acute left-sided muscle weakness (Acute) CKD (chronic kidney disease) (Acute) COVID-19 (Acute) Diabetes mellitus, type II JACOB (obstructive sleep apnea) HTN (hypertension) Left-sided weakness CKD (chronic kidney disease), stage IV Surgical History History of parathyroidectomy 2009 History of adenectomy 2013 @ [facility] [place] Family History Father , age 90 with prostate cancer Prostate cancer Mother , age 67 of congestive heart failure Heart disease Other Diabetes Social History Smoking Status: Former smoker Tobacco Type: Cigarettes Age Started Using Tobacco: 12; Age Quit Using Tobacco: 35; packs per day: 1; Hx Alcohol Use: No Hx Substance Use: No Preferred Language: Sami Communication Ability: Effective Steward/Steward[employer] Car Required: No Beliefs That Will Affect Care: None Current Living Situation: Spouse current occupational status: retired 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 Normal insp/exp effort, no accessory muscle use Cardiovascular: Irregular, no murmur, no edema Vessels: no JVD or carotid bruit Chest: normal inspection of chest Abdomen: Soft, nontender. Peritoneal dialysis catheter in place Musculoskeletal: no cyanosis or clubbing, extremities motor strength 5/5 Skin: no rashes, warm and dry normal turgor Neurologic: PERRL, EOMI, accommodation nl, no face palsy, no dysarthria CN's II- XI intact bilaterally and moves all extremities Results & Data Results & Data Vital Signs (Past 12 Hours) Vital Signs Temp Pulse Pulse Resp BP BP Pulse Ox 09/12/24 17:59 138 H 107/79 09/12/24 17:49 97 09/12/24 17:41 165 H 109/85 09/12/24 17:35 162 H 18 109/85 97 09/12/24 17:13 36.4 C L 98 H 19 146/71 H 98 09/12/24 17:12 O2 Del Method 09/12/24 17:59 09/12/24 17:49 Room Air 09/12/24 17:41 09/12/24 17:35 Room Air 09/12/24 17:13 Room Air 09/12/24 17:12 Room Air
[2024-09-12] MEDS: METOPROLOL TARTRATE 25 MG TAB PO SCH (19:57)
[2024-09-12] MEDS: dilTIAZem HCL 125 MG in DEXTROSE 5% 100 ML IV SCH (19:57)
[2024-09-12] MEDS: dilTIAZem HCl 5 MG/ML 5 ML VIAL IV STA (20:00)
[2024-09-12] MEDS: SODIUM CHLORIDE 0.9% 250 ML IV ONE (21:16)
[2024-09-12] MEDS: INSULIN ASPART PER UNIT CHARGE SC SCH (21:19)
[2024-09-12] MEDS: LANTUS PER UNIT CHARGE SQ SCH (21:22)
[2024-09-12] MEDS: PROMETHAZINE 12.5 MG/50.5 ML BAG IV STA (21:23)
[2024-09-12] MEDS: TICAGRELOR 90 MG TAB PO STA (23:28)
[2024-09-13 01:31] LABS: ANTI-Xa, UFH(UnfractionatedHep 0.42 IU/ml (0.3-0.7)
--- OUTSIDE RECORDS SUMMARY | 2024-09-13 02:27 | External Medical Summary ---
Author Name Unknown Address Unknown Organization [id number]:[facility] [place] [address] [place] [address] Laboratory Report Ordering Provider Test Date Status PJ PATEL 09/10/2024 07:00:00 Final Observation Date Value Abnormality Reference (Units) Status Bacteria identified in Specimen by Culture 09/10/2024 07:00:00 No significant growth Final Test: Culture, Urine, Quanti tative
Specimen Source: Urine, Clean Catch
Specimen Type: Urine
Specimen Date: 09/10/2024 0700
Result Date: 09/11/2024 1100
Result Status: Final result
Resulting Lab: [facility] [place]
[address]
[place] [address]

CULTURE

No significant growth

null Performing Location [facility] [place] [address] [facility] [id number]
--- OUTSIDE RECORDS SUMMARY | 2024-09-13 02:27 | External Medical Summary | Summary of Care ---
Author Name Unknown Organization [facility] Address [address] [place] [address] Phone [phone] Care Team Providers Care Lay Out Inspector Name Role Phone Agatha Beach Primary Care Provider [phone] Reason for Visit * Reason Comments Outpatient Testing Encounter Details Date Type Department Care Team (Late st Contact Info) Description 09/10/2024 9:10 AM EDT Laboratory Laboratory, [place] [facility] [address] [facility] [place] [address] [place] [address] [facility] [place] [address] Hematuria, gross Allergies Active Allergy Reactions Criticality Noted Date Comments Egg-Derived Products Diarrhea 12/13/2019 Egg yolks Sulfa Antibiotics Other (Please comment) 2023 Upset stomach documented as of this encounter (statuses as of 09/10/2024) Medications Cholecalciferol 1000 UNITS Capsule Take 1 Capsule by mouth in the morning. 30 Cap 3 12/01/19 16 Active vitamin e (AQUASOL E) 400 UNIT Capsule Take 1 Capsule by mouth in the morning. Active Iron Sucrose 20 MG/ML Intravenous Solution Administer 200 mg intravenously every 14 days. Active Calcium Acetate (Phos Binder) 667 MG Oral Capsule (Phoslo) take 2 capsules by mouth with meals and take 1 capsule with SNACKS. MAX OF 8 CAPS/DAY 240 Capsule 02/23/20 23 Active Aspirin 81 MG Oral Tablet Chewable Chew & swallow 1 Tablet by mouth every morning. 30 Tablet 11 07/11/2023 3:10 PM EST 07/11/19 24 Active Gentamicin Sulfate 0.1 % External Cream PUT ON EXIT SITE DAILY 09/05/19 24 Active Droplet Pen [place] 32G X 4 MM (Insulin Pen Needle)Indicatio ns:Type 2 diabetes mellitus with hemoglobin A1c goal of less than or equal to 9.0% ([facility]) use three times a day 300 Each 3 10/18/19 24 Active Insulin Glargine Solostar 100 UNIT/ML Subcutaneous Solution Pen-injector (Lantus SoloStar) Inject 12 Units under the skin in the morning. 15 mL 1 07/08/2024 1:15 PM EST 03/19/20 24 Active FreeStyle Elis 3 Sensor Use as directed every 14 days. Supplied by home care delivered Active Ozempic (2 MG/DOSE) 8 MG/3ML Subcutaneous Solution Pen-injector (Semaglutide (2 MG/DOSE)) Inject 2 mg under the skin once a week. 9 mL 1 08/29/2024 11:25 AM EDT 06/04/19 25 Active Atorvastatin Calcium 80 MG Oral Tablet (Lipitor)Indicat ions:Hyperlipide sudhir with target LDL less than 70 TAKE ONE TABLET BY MOUTH EVERY DAY 90 Tablet 07/10/2024 2:22 PM EST 07/06/19 25 Active Ezetimibe 10 MG Oral Tablet (Zetia)Indicatio ns:Dyslipidemia, goal LDL below 70 TAKE ONE TABLET BY MOUTH EVERY MORNING 90 Tablet 07/10/2024 2:22 PM EST 07/06/19 25 Active Isosorbide Mononitrate ER 120 MG Oral Tablet Extended Release 24 Hour (Imdur) Take 0.5 Tablets by mouth in the morning. 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 75 Tablet 4 09/03/2024 7:01 AM EDT 08/09/19 25 Active Brilinta 90 MG Oral Tablet (Ticagrelor) Take 1 Tablet by mouth in the morning and 1 Tablet before bedtime. 180 Tablet 3 08/23/19 25 Active Metoprolol Succinate ER 25 MG Oral Tablet Extended Release 24 Hour (toPROL XL) Take 0.5 Tablets by mouth in the morning and 0.5 Tablets before bedtime. 90 Tablet 3 09/06/19 25 Active Pantoprazole Sodium 40 MG Oral Tablet Delayed Release (Protonix) Take 1 Tablet by mouth in the morning. 90 Tablet 3 09/10/19 25 Active Auryxia 1 GM 210 MG(Fe) Oral Tablet (Ferric Citrate) Take 1 tablet by mouth with breakfast and 1 tablet by mouth with lunch daily. 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 LAD also heavily calcified without suitable target for bypass. Deemed not a surgical candidate. Consider high risk PCI 01/01/24 had overlapping stents placed in both LAD and OM back to the left circumflex Assessment & Plan (07/09/2024 6:00 PM EST): Following with cardiology locally Recent cardiac cath and stent at [facility] Plavix d/c and started brllinta Coreg and imdur increased Denies any chest pain since recent cath and stent Aware of ongoing diffuse CAD, not a candidate for CABG Met with CT surgery, not interested in aggressive surgery Assessment & Plan (02/20/2024 9:03 AM EDT): Continue cardiology f/u Recently had stents placed at [facility] Assessment & Plan (08/02/2023 12:43 PM EDT): Continues cardiology f/u Medical management with plavix, coreg, statin, asa, zetia On low dose coreg, limited by dizziness and fatigue Hypertensive chronic kidney disease with 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 06/23/2023 Assessment & Plan (02/20/2024 9:05 AM EDT): Current CKD Stage: ESRD on dialysis "RED FLAG" symptoms: NO IDENTIFIED SYMPTOMS CKD Complications: CAD HTN Additional Comments Continues home peritoneal dialysis Assessment & Plan (08/02/2023 12:51 PM EDT): Current CKD Stage: ESRD on dialysis "RED FLAG" symptoms: NO IDENTIFIED SYMPTOMS CKD Complications: CAD HTN Additional Comments Continues home peritoneal dialysis Hemiplegia and hemiparesis f ollowing cerebral infarction affecting left non-dominant side 06/23/2023 Assessment & Plan (07/09/2024 6:00 PM EST): Minimal Ambulates with walker Assessment & Plan (08/02/2023 12:44 PM EDT): Mild deficit Hypertensive heart and renal disease, 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, with heart failure 06/23/2023 Assessment & Plan (07/09/2024 6:00 PM EST): Current CKD Stage: ESRD on dialysis "RED FLAG" symptoms: NO IDENTIFIED SYMPTOMS CKD Complications: CAD HTN Additional Comments Continues home peritoneal dialysis ESRD (end stage renal disease) 02/02/2023 Pancreatic lesion 07/27/2022 Assessment & Plan (07/09/2024 6:00 PM EST): Per previous imaging Hypertensive kidney disease with chronic kidney disease stage IV 11/30/2020 Overview: Per CKD protocol Chronic kidney disease, stage 4 (severe) 021 Overview: Per CKD protocol Type 2 diabetes mellitus wit h stage 4 chronic kidney disease, with long-term current use of insulin 11/30/2020 Overview: Per CKD protocol Carotid artery aneurysm 04/25/2019 Carotid artery dissection 04/25/2019 Diabetes mellitus with nephropathy 01/18/2019 Assessment & Plan (07/09/2024 6:00 PM EST): Hemoglobin AIC Results: Lab Results Component Value Date/Time HEMOGLOBIN A1C - [facility] 6.4 (H) 02/01/2024 10:50 AM HEMOGLOBIN A1C - [facility] 7.1 (H) 07/08/2023 05:28 AM HEMOGLOBIN A1C - [facility] 6.4 (H) 04/03/2023 02:59 PM HEMOGLOBIN A1C - [facility] 8.7 (H) 04/23/2020 08:30 AM HEMOGLOBIN A1C - [facility] 8.7 (H) 01/22/2020 10:04 AM HEMOGLOBIN A1C - [facility] 8.2 (H) 10/17/2019 11:15 AM Ptosis of eyelid 07/13/2016 Type 2 diabetes mellitus wit h hemoglobin A1c goal of less than or equal to 9.0% 04/10/2014 Overview (09/22/2015): ICD-10 update of inactive term Assessment & Plan (02/20/2024 9:05 AM EDT): "RED FLAG" Diabetic symptoms: Confusion and Vision Changes Goal HgbA1c Other: 9 Diabetic Complications Vascular (examples: PVD, PAD, CAD, CVA) Renal (example: CKD, Proteinuria, Dialysis) Medication Regimen Basal/Long Acting Insulin GLP-1 Agonist (ex: Victoza, Trulicity, Ozempic) DM Secondary Prevention Moderate-High Intensity Statin Aspirin Additional Comments Has elis CGM Hemoglobin AIC Results: Lab Results Component Value Date/Time HEMOGLOBIN A1C - [facility] 6.4 (H) 02/01/2024 10:50 AM HEMOGLOBIN A1C - [facility] 7.1 (H) 07/08/2023 05:28 AM HEMOGLOBIN A1C - [facility] 6.4 (H) 04/03/2023 02:59 PM HEMOGLOBIN A1C - [facility] 8.7 (H) 04/23/2020 08:30 AM HEMOGLOBIN A1C - [facility] 8.7 (H) 01/22/2020 10:04 AM HEMOGLOBIN A1C - [facility] 8.2 (H) 10/17/2019 11:15 AM Assessment & Plan (08/02/2023 12:52 PM EDT): "RED FLAG" Diabetic symptoms: Confusion and Vision Changes Goal HgbA1c Other: 9 Diabetic Complications Vascular (examples: PVD, PAD, CAD, CVA) Renal (example: CKD, Proteinuria, Dialysis) Medication Regimen Basal/Long Acting Insulin GLP-1 Agonist (ex: Victoza, Trulicity, Ozempic) DM Secondary Prevention Moderate-High Intensity Statin Aspirin Additional Comments Has elis CGM History of hyperaldosteronism 04/10/2014 Dyslipidemia, goal LDL below 70 04/02/2013 Overview (09/21/2015): ICD-10 update of inactive term Assessment & Plan (07/09/2024 6:00 PM EST): Continue statin JACOB (obstructive sleep apnea) 05/18/2012 Overview (07/18/2017): BIPAP 04/26, suboptimal d/t intolerance [facility] Oxygen HTN, goal below 140/90 04/23/2012 Assessment & Plan (07/09/2024 6:00 PM EST): At goal Gout documented as of this encounter (statuses as of 09/10/2024) Resolved Problems Problem Noted Date Diagnosed Date Resolved Date Chronic kidney disease, stage 3b 09/29/2020 12/03/2020 Overview: Per CKD protocol Type 2 diabetes mellitus wit h stage 3b chronic kidney disease, with long-term current use of insulin 09/29/2020 12/03/2020 Overview: Per CKD protocol Hypertensive kidney disease with stage 3b chronic kidney disease 03/30/2020 12/03/2020 Overview: Per CKD protocol Morbid obesity with body mas s index (BMI) of 40.0 to 44.9 in adult 06/22/2018 08/02/2023 Type 2 diabetes mellitus wit h stage 3 chronic kidney disease, with long-term current use of insulin 06/22/2018 10/01/2020 Overview: Per CKD protocol Renal osteodystrophy 06/22/2018 021 Hypertensive kidney disease with CKD stage III 03/21/2018 04/02/2020 Overview: Per CKD protocol Type 2 diabetes mellitus wit h stage 3 chronic kidney disease 03/21/2017 06/22/2018 Body mass index (BMI) of 40. 0 to 44.9 in adult 02/20/2017 07/05/2018 Overview: Per Obesity protocol #1 Acute pain of left knee 01/17/201702/21 Hypercalcemia 06/10/2016 04/25/2019 CKD (chronic kidney disease) stage 3, GFR 30-59 ml/min 11/27/2015 09/01/2017 History of total adrenalectomy 04/10/2014 06/22/2018 Overview (04/10/2014): left adrenalecotmy for hyperaldosteronism Hypokalemia 07/17/2013 04/25/2019 Hyperaldosteronism 07/17/2013 8 Type 2 diabetes mellitus wit h hemoglobin A1c goal of less than 7.0% 07/10/2013 04/10/2014 Overview (09/15/2015): ICD-10 update of inactive term Microalbuminuria 07/10/2013 06/22/2018 H/O parathyroidectomy 04/17/20132020 Adrenal adenoma 04/02/2013 09/28/2018 Hypersomnia with sleep apnea 05/18/2012 07/31/2017 DM type 2, not at goal 04/23/201207/10 documented as of this encounter (statuses as of 09/10/2024) Immunizations Name Administration Dates Next Due COVID-19 mRNA, LNP-s, No Pre serve, 2-Dose Series (Moderna) 08/03/2020,06/28/2020 COVID-19, mRNA, LNP-s, PF, B ooster, 100mcg/0.5mg (Moderna) 09/16/2021,04/06/2021 Covid-19, Mrna, Lnp-s, Pf, B ivalent, 30 Mcg, IM, 12 yrs and above (Pfizer) 05/19/2022 Hepatitis B, 20+ yrs 04/24/2017,11/16/2016,10/06 Pneumococcal Conjugate Vacc, 13 Valent (Prevnar) 06/16/2016 Pneumococcal Polysaccharide PPV23 (Pneumovax) 04/25/2019,06/23/2012 Varicella Zoster Vaccine Adult (Zostavax) 2013 Zoster Vaccine Recombinant (Shingrix) 04/24/2020 ,01/22/2020 documented as of this encounter Social History Tobacco Use Types Packs/Day Years Used Date Smoking Tobacco: Former Cigarettes 1 18 1 967 - 1984 Passive Smoke Exposure: Past Smokeless Tobacco: Never Comments:quit in 1984 Alcohol Use Standard Drinks/Week Comments Yes 0 (1 standard drink = 0.6 oz pur e alcohol) Very rare PHQ-2 Answer Date Recorded PHQ Adult Total Score 0 01/11/2024 Hunger Vital Sign Answer Date Recorded Within the past 12 months, y ou worried that your food would run out before you got the money to buy more. Never true 02/09/20 24 Within the past 12 months, t he food you bought just didn't last and you didn't have money to get more. Never true 02/09/2024 Childcare Answer Date Recorded Do you feel overwhelmed with taking care of a child, family member or friend? No 02/09/2024 Does your family need help f inding childcare? (Household - for ages 0-17 years) Not on file 02/09/2024 Clothing Answer Date Recorded Have you been unable to get clothing when it was really needed? No 02/09/2024 Is your family able to get c lothes or diapers when needed? (Household - for ages 0-17 years) Not on file 02/09/2024 Personal Safety Answer Date Recorded Do you feel unsafe or have concerns for your saf ety? No 02/09/2024 Do you have concerns for you r family's safety? (Household - for ages 0-17 years) Not on file 02/09/2024 Utilities Answer Date Recorded Do you have trouble paying y our heating, water, or electric bill? No 02/09/2024 Is your family able to pay t he heat, water, or electric bill? (Household - for ages 0-17 years) Not on file 02/09/2024 Does your family have access to good internet? (Household - for ages 0-17 years) Not on file 02/09/2024 Employment Status Answer Date Recorded Are you unemployed or without regular income? No 02/09/2024 Does the household have a [facility] source of income? (Household - for ages 0-17 years) Not on file 02/09/2024 Social Connections Answer Date Recorded How often do you feel lonely or isolated from th ose around you? Never 02/09/2024 Financial Resource Strain Answer Date R ecorded Do you have any trouble payi ng for your medications, or do you think you might in the future? No 02/09/2024 Does your family have troubl e paying for medicine? (Household - for ages 0-17 years) Not on file 02/09/2024 Transportation Needs Answer Date Record ed Do you have trouble getting a ride to medical visits or work? (Adult - for ages 18 years and over) Not on file 02/09/2024 Does your family have a hard time getting a ride to doctors visits? (Household - for ages 0-17 years) Not on file 02/09/2024 Has lack of transportation k ept you from medical appointments, meetings, work, or from getting things needed for daily living? Check all that apply. No 02/09/2024 Do you (or your family) have trouble finding or paying for a ride (transportation)? (Household - for ages 0-17 years) Not on file 02/09/2024 Housing Stability Answer Date Recorded Do you currently live in a s helter or have no steady place to sleep at night? No 02/09/2024 Do you think you are at risk of becoming homeless? (Adult - for ages 18 years and over) Not on file 02/09/2024 Does your family worry about paying for your home or becoming homeless? (Household - for ages 0-17 years) Not on file 0 02/09/2024 Are you homeless or worried that you might be in the future? No 02/09/2024 Are you (or your family) bernardo eless or worried that you might be in the future? (Household - for ages 0-17 years) Not on file Food Insecurity Answer Date Recorded Do you need food for this week? No 02/09/2024 Are you able to get enough f ood for your family? (Household - for ages 0-17 years) Not on file 02/09/2024 Does your family need food t his week? (Household - for ages 0-17 years) Not on file 02/09/2024 Do you always have enough fo od for your family? (Household - for ages 0-17 years) Not on file 02/09/2024 Food Insecurity Answer Date Recorded Within the past 12 months, y ou worried that your food would run out before you got the money to buy more. Never true 02/09/20 24 Within the past 12 months, t he food you bought just didn't last and you didn't have money to get more. Never true 02/09/2024 Do you need food for this week? 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 [phone] Laura Kelly, DO [address] [place] [address] 10/22/2024 12:17 PM EDT - 10/22/2024 12:57 PM EDT Surgery OR [facility], Operating Room, [facility] - 4th Floor [address] [facility] [place] [phone] Laura Kelly, DO [address] [place] [address] COLONOSCOPY FLEXIBLE PROXIMAL DIAGNOSTIC 11/07/2024 11:30 AM EDT Office Visit Family [facility], [address] [facility] [address] [phone] Agatha Beach, DO [address] [address] 11/18/2024 11:30 AM EDT Imaging Radiology [facility] [address] [place] [phone] 11/19/2024 11:30 AM EDT Office Visit Pharmacy, [address] [place] [phone] [address] [address] 11/25/2024 10:45 AM EDT Telemedicine Urology [address] [address] Zeferino Bah Jr., MD [address] [place] [address] 02/05/2025 2:30 PM EDT Office Visit Cardiology, [facility] [address] [place] [phone] Emeka Sheets MD [address] [place] [address] Pending Results Name Type Priority Associated Diagnoses Date /Time CULTURE, URINE, QUANTITATIVE Lab Routine Hematuria, gross 09/10/2024 7:00 AM EDT Scheduled Procedures Name Priority Associated Diagnoses Date/Ti me COLONOSCOPY FLEXIBLE PROXIMAL DIAGNOSTIC Screen for colon cancer 10/22/2024 12:17 PM EDT Health Maintenance Due Date Last Done Comments Sigmoidoscopy 1996 Colonoscopy 04/17/2022 04/17/2012, 04/17/2012 Adult Wellness Visit 01/10/2023 01/10/2022, 01/07/20 21 COVID-19 Vaccine ( season) 2024 05/19/2022, 09/16/2021, 04/06/2021, Additional history exists HbA1c 07/31/2024 02/01/2024, 12/20, 07/08/2023, Additional history exists Depression Screening 01/10/2025 01/11/2024 Diabetic Foot Exam 01/10/2025 01/11/2024, 0 09/30/2022, 12/08/2021, Additional history exists Fecal Occult Blood Test 01/18/2025 01/19/2024, 01/18 Influenza Vaccine (FLU shot) (Season Ended) 2025 05/01/2017 (Declined) Diabetic Eye Exam 02/08/2025 02/09/2024, , 08/11/2021, Additional history exists Cologuard 03/05/2027 03/05/2024, 01/22, 02/19/2024 Colorectal Cancer Screening 03/05/2027 DTap/Tdap Vaccines (2 - Td or Tdap) 08/01/2027 07/31/2017 (Not indicated) Hepatitis B Vaccine Completed 04/24/2017, 11/16/2016, 10/06/2016 Pneumococcal Vaccine: 50+ Years Completed 04/25/2019, 06/16/2016, 06/23/2012 Zoster Vaccines Completed 04/24/2020, 06/2019, 06/14/2013 Albumin/Creatinine Ratio Discontinued 023, 04/27/2022, 08/11/2021, Additional history exists Nephrology Referral Discontinued 04/03/2023 AAA Screening Completed 03/17/2024, 01/20, 07/11/2023, Additional history exists HPV (Gardasil) Vaccine Aged Out No lo nger eligible based on patient's age to complete this topic MENINGOCOCCAL (MENACTRA/MENVEO) Aged Out No longer eligible based on patient's age to complete this topic Meningitis B Vaccine (Bexsero/Trumemba) Aged Out No longer eligible based on patient's age to complete this topic documented as of this encounter Medical Devices Not on filedocumented as of this encounter Visit Diagnoses Diagnosis Coronary artery disease of [place] artery of [place] heart with stable angina pectoris (HCC)- Primary Hypertensive chronic kidney disease with 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 (HCC) Type 2 diabetes mellitus with hemoglobin A1c goal of less than or equal to 9.0% (HCC) 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) Advanced care planning/counseling discussion Other specified counseling Coronary artery disease of [place] artery of [place] heart with stable angina pectoris (HCC)- Primary Hypertensive chronic kidney disease with 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 (HCC) Type 2 diabetes mellitus with hemoglobin A1c goal of less than or equal to 9.0% (HCC) Advanced care planning/counseling discussion- Primary Other specified counseling Coronary artery disease of s[place] artery of [place] heart with stable angina pectoris (HCC) HTN, goal below 140/90 Unspecified essential hypertension Hypertensive heart and renal disease, 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, with heart failure (HCC) Diabetes mellitus with nephropathy (HCC) Type II or unspecified type diabetes mellitus with renal manifestations, not stated as uncontrolled Dyslipidemia, goal LDL below 70 Other and unspecified hyperlipidemia Pancreatic lesion Unspecified disease of pancreas 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) Hematuria, gross Gross hematuria Screen for colon cancer Special screening for malignant neoplasms, colon documented in this encounter Advance Directives * Full Code (Latest Code Status on File) Date Activated Date Inactivated Comments 07/07/2023 2:57 PM 07/11/2023 7:31 PM This order r eflects the patients wishes and were consensually agreed upon. Question Answer Comments Discussion of Advance Direct kaden occurred with: Not Discussed due to patient's condition * Full Code Date Activated Date Inactivated Comments 12/27/2022 10:22 AM 12/27/2022 6:34 PM This order re flects the patients wishes and were consensually agreed upon. Question Answer Comments Discussion of Advance Direct kaden occurred with: Not Discussed due to patient's condition Does the patient have a Living Will? No Does the patient have Health Care Power of Supervisor Rides? No * Full Code Date Activated Date Inactivated Comments 02/03/2014 12:47 PM 02/04/2014 3:23 PM Question Answer Comments Discussion of Advance Directives occurred with: Not Discussed Does the patient have a Living Will? No Does the patient have Health Care Power of Attor indira? No * Full Code Date Activated Date Inactivated Comments 02/03/2014 6:02 AM 02/03/2014 12:47 PM Question Answer Comments Does the patient have a Living Will? No Does the patient have Health Care Power of Attor indira? No Care Teams Lay Out Inspector Relationship Specialty Start Date End Date Agatha Beach DO [address] [address] PCP - General Family Medicine 07/02/24 documented as of this encounter
--- OUTSIDE RECORDS SUMMARY | 2024-09-13 02:28 | External Medical Summary | Summary of Care ---
Author Name Unknown Organization [facility] Address [address] [place] [address] Phone [phone] Care Team Providers Care Lead Driver Name Role Phone Agatha Beach Primary Care Provider [phone] Reason for Visit * Reason Comments Medication Refill Encounter Details Date Type Department Care Team (Late st Contact Info) Description 08/08/2024 Refill Cardiology, [facility] [address] [facility] [place] [address] Odalys James MD [address] [place] [address] Coronary artery disease of [place] artery of [place] heart with stable angina pectoris (HCC) Allergies Active Allergy Reactions Criticality Noted Date Comments Egg-Derived Products Diarrhea 12/13/2019 Egg yolks Sulfa Antibiotics Other (Please comment) 2023 Upset stomach documented as of this encounter (statuses as of 08/08/2024) Medications Cholecalciferol 1000 UNITS Capsule Take 1 [...] by mouth every morning. 30 Tablet 11 4 3:10 PM EST 07/11/19 24 Active Gentamicin Sulfate 0.1 % External Cream PUT ON EXIT SITE DAILY 09/05/19 24 Active Droplet Pen [place] 32G X 4 MM (Insulin Pen Needle)Indicatio ns:Type 2 diabetes mellitus with hemoglobin A1c goal of less than or equal to 9.0% ([facility]) use three times a day 300 Each 3 10/18/19 24 Active Insulin Glargine Solostar 100 UNIT/ML Subcutaneous Solution Pen-injector (Lantus SoloStar) Inject 12 Units under the skin in the morning. 15 mL 1 5 1:15 PM EST 03/19/20 24 Active FreeStyle Elis 3 Sensor Use as directed every 14 days. Supplied by home care delivered Active Ozempic (2 MG/DOSE) 8 MG/3ML Subcutaneous Solution Pen-injector (Semaglutide (2 MG/DOSE)) Inject 2 mg under the skin once a week. 9 mL 1 5 7:30 AM EST 06/04/19 25 Active Atorvastatin Calcium 80 MG Oral Tablet (Lipitor)Indicat ions:Hyperlipide sudhir with target LDL less than 70 TAKE ONE TABLET BY MOUTH EVERY DAY 90 Tablet 5 2:22 PM EST 07/06/19 25 Active Ezetimibe 10 MG Oral Tablet (Zetia)Indicatio ns:Dyslipidemia, goal LDL below 70 TAKE ONE TABLET BY MOUTH EVERY MORNING 90 Tablet 5 2:22 PM EST 07/06/19 25 Active Auryxia 1 GM 210 MG(Fe) Oral Tablet (Ferric Citrate) 2 tablets 3 times daily with meals and 1 tablet 2 times daily with snacks 07/08/19 25 Active Brilinta 90 MG Oral Tablet (Ticagrelor) Take 1 Tablet by mouth in the morning and 1 Tablet before bedtime. 07/09/19 25 Active Isosorbide Mononitrate ER 120 MG Oral Tablet Extended Release 24 Hour (Imdur) Take 0.5 Tablets by mouth in the morning. 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 75 Tablet 4 08/09/19 25 Active Metoprolol Succinate ER 25 MG Oral Tablet Extended Release 24 Hour (toPROL XL) Take 0.5 Tablets by mouth in the morning and 0.5 Tablets before bedtime. 90 Tablet 3 08/09/19 25 Active Nitroglycerin 0.4 MG Sublingual Tablet Sublingual (Nitrostat)Indic ations:Coronary artery disease of [place] artery of [place] heart with stable angina pectoris (HCC) Place 1 Tablet under the tongue every 5 minutes as needed for chest Pain. 75 Tablet 4 5 6:43 AM EST 11/20/19 025 Discontin ued(Refil l) documented as of this encounter (statuses as of 08/08/2024) Active Problems Problem Noted Date Diagnosed Date Angina, class III 06/21/2024 Aortic ectasia, abdominal 10/11/2023 Coronary artery disease of [place] artery [place] heart with stable angina pectoris 07/07/2023 Overview [...] locally Recent cardiac cath and stent at [facility] [place] Plavix d/c and started brllinta Coreg and imdur increased Denies any chest pain since recent cath and stent Aware of ongoing diffuse CAD, not a candidate for CABG Met with CT surgery, not interested in aggressive surgery Assessment & Plan (02/20/2024 9:03 AM EDT): Continue cardiology f/u Recently had stents placed at [facility] Assessment & Plan (08/02/2023 12:43 PM [...] as of this encounter (statuses as of 08/08/2024) Resolved Problems Problem Noted Date Diagnosed Date [...] as of this encounter (statuses as of 08/08/2024) Immunizations Name Administration Dates Next Due COVID-19 mRNA, LNP-s, No Pre serve, 2-Dose Series (Moderna) 08/03/2020,06/28/2020 COVID-19, mRNA, LNP-s, PF, B ooster, 100mcg/0.5mg (Moderna) 09/16/2021,04/06/2021 Covid-19, Mrna, Lnp-s, Pf, B ivalent, 30 Mcg, IM, 12 yrs and above ([place] [place]) 05/19/2022 Hepatitis B, 20+ yrs 04/24/2017,11/16/2016,10/06 Pneumococcal Conjugate Vacc, 13 Valent (Prevnar) 06/16/2016 Pneumococcal Polysaccharide PPV23 (Pneumovax) 04/25/2019,06/23/2012 Varicella Zoster Vaccine (Adult) 06/14/2013 Zoster Vaccine Recombinant (Shingrix) 04/24/2020 ,01/22/2020 documented [...] No 02/09/2024 Does the household have a re lar source of income? 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 Authorizing Provider: ODALYS JAMES * Telephone Encounter - Ifeoma Lizarraga [facility] - 08/08/2024 3:32 PM EDT Pending Prescriptions: Disp Refills Nitroglycerin 0.4 MG Sublingual Tablet Sub*75 Tab*4 Sig: Place 1 Tablet under the tongue every 5 minutes as needed for chest Pain. documented in this encounter Plan of Treatment Upcoming Encounters Date Type Department Care Team (Latest Contact Info) Description 09/24/2024 3:00 PM EDT [facility] [address] [place] [address] Barron Gallo PA-C [address] [place] [address] 10/07/2024 3:30 PM EDT [facility] [address] [place] [address] Yeni Kent, RN [address] [place] [address] 10/22/2024 12:17 PM EDT Hospital Encounter OR [facility], Operating Room, [facility] - 4th Floor [address] [place] [address] [place] [phone] Laura Kelly DO [address] [place] [address] 10/22/2024 12:17 PM EDT - 10/22/2024 12:57 PM EDT Surgery OR GL, Operating Room, [facility] - 4th Floor [address] [place] [phone] Laura Kelly, DO [address] [place] [address] COLONOSCOPY FLEXIBLE PROXIMAL DIAGNOSTIC 11/07/2024 11:30 AM EDT Office Visit Family Practice, М[place] Wilder [address] [facility] [address] [phone] Agatha Beach, DO [address] [facility] [place] [address] 11/18/2024 11:30 AM EDT Imaging Radiology [facility] [address] [place] [phone] 11/19/2024 11:30 AM EDT Office Visit Pharmacy, [place] [place] [address] [facility] [place] [phone] [address] [place] [address] 11/25/2024 10:45 AM EDT Telemedicine Urology Lori Doshi [address] [place] [address] Niurka Dorado, Zeferino Candelaria MD [address] [place] [address] 02/05/2025 2:30 PM EDT Office Visit Cardiology, [facility] [address] [place] [address] Odalys James MD [address] [place] [address] Scheduled Procedures Name Priority Associated Diagnoses Date/Ti me COLONOSCOPY FLEXIBLE PROXIMAL DIAGNOSTIC Screen for colon cancer 10/22/2024 12:17 PM EDT Health Maintenance Due Date Last Done Comments Sigmoidoscopy 1996 Colonoscopy 04/17/2022 04/17/2012, 04/17/2012 Adult Wellness Visit 01/10/2023 01/10/2022, 01/07/20 21 COVID-19 Vaccine ( season) 2024 05/19/2022, 09/16/2021, 04/06/2021, Additional history exists Influenza Vaccine (FLU shot) (#1) 2024 05/01/2017 (Declined) HbA1c 07/31/2024 02/01/2024, 12/20, 07/08/2023, Additional history exists Depression Screening 01/10/2025 01/11/2024 Diabetic Foot Exam 01/10/2025 01/11/2024, 0 09/30/2022, 12/08/2021, Additional history exists Fecal Occult Blood Test 01/18/2025 01/19/2024, 01/18 Diabetic Eye Exam 02/08/2025 02/09/2024, , 08/11/2021, Additional history exists Cologuard 03/05/2027 03/05/2024, 01/22, 02/19/2024 Colorectal Cancer Screening 03/05/2027 DTap/Tdap Vaccines (2 - Td or Tdap) 08/01/2027 07/31/2017 (Not indicated) Hepatitis B Vaccine Completed 04/24/2017, 11/16/2016, 10/06/2016 Pneumococcal Vaccine: 50+ Years Completed 04/25/2019, 06/16/2016, 06/23/2012 Zoster Vaccines Completed 04/24/2020, 090 06/2019, 06/14/2013 Albumin/Creatinine Ratio Discontinued 023, 04/27/2022, [...] Visit Diagnoses Diagnosis 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 No * Full Code Date Activated Date [...] Power of Attor indira? No Care Teams Lead Driver Relationship Specialty Start Date End Date Agatha Beach DO [address] [place] [address] PCP - General Family Medicine 07/02/24 documented as of this encounter
--- OUTSIDE RECORDS SUMMARY | 2024-09-13 02:28 | External Medical Summary | Summary of Care ---
Author Name Unknown Organization [facility] Address [address] [place] [address] Phone [phone] Care Team Providers Care Brusher Warp Name Role Phone Agatha Beach Primary Care Provider [phone] Encounter Details Date Type Department Care Team (Late st Contact Info) Description 08/08/2024 Telephone Nephrology, [facility] Tran [address] [place] [address] Yoly Martinez MD [address] [place] [address] Allergies Active Allergy Reactions Criticality Noted Date Comments Egg-Derived Products Diarrhea 12/13/2019 Egg yolks Sulfa Antibiotics Other (Please comment) 2023 Upset stomach documented as of this encounter (statuses as of 08/08/2024) Medications Cholecalciferol 1000 UNITS Capsule Take 1 Capsule by mouth in the morning. 30 Cap 3 016 Active vitamin e (AQUASOL E) 400 UNIT Capsule Take 1 Capsule by mouth in the morning. Active Iron Sucrose 20 MG/ML Intravenous Solution Administer 200 mg intravenously every 14 days. Active Calcium Acetate (Phos Binder) 667 MG Oral Capsule (Phoslo) take 2 capsules by mouth with meals and take 1 capsule with SNACKS. MAX OF 8 CAPS/DAY 240 Capsule 023 Active Aspirin 81 MG Oral Tablet Chewable Chew & swallow 1 Tablet by mouth every morning. 30 Tablet 11 07/11/19 24 3:10 PM EST 024 Active Gentamicin Sulfate 0.1 % External Cream PUT ON EXIT SITE DAILY 024 Active Droplet Pen [place] 32G X 4 MM (Insulin Pen Needle)Indicati ons:Type 2 diabetes mellitus with hemoglobin A1c goal of less than or equal to 9.0% ([facility]) use three times a day 300 Each 3 024 Active Insulin Glargine Solostar 100 UNIT/ML Subcutaneous Solution Pen-injector (Lantus SoloStar) Inject 12 Units under the skin in the morning. 15 mL 1 07/08/19 25 1:15 PM EST 024 Active FreeStyle Elis 3 Sensor Use as directed every 14 days. Supplied by home care delivered Active Ozempic (2 MG/DOSE) 8 MG/3ML Subcutaneous Solution Pen-injector (Semaglutide (2 MG/DOSE)) Inject 2 mg under the skin once a week. 9 mL 1 06/10/19 25 7:30 AM EST 025 Active Atorvastatin Calcium 80 MG Oral Tablet (Lipitor)Indica tions:Hyperlipi demia with target LDL less than 70 TAKE ONE TABLET BY MOUTH EVERY DAY 90 Tablet 07/10/19 25 2:22 PM EST 025 Active Ezetimibe 10 MG Oral Tablet (Zetia)Indicati ons:Dyslipidemi a, goal LDL below 70 TAKE ONE TABLET BY MOUTH EVERY MORNING 90 Tablet 07/10/19 25 2:22 PM EST 025 Active Auryxia 1 GM 210 MG(Fe) Oral Tablet (Ferric Citrate) 2 tablets 3 times daily with meals and 1 tablet 2 times daily with snacks 025 Active Brilinta 90 MG Oral Tablet (Ticagrelor) Take 1 Tablet by mouth in the morning and 1 Tablet before bedtime. 025 Active Isosorbide Mononitrate ER 120 MG Oral Tablet Extended Release 24 Hour (Imdur) Take 0.5 Tablets by mouth in the morning. 50 Tablet 3 025 Active Metoprolol Succinate ER 25 MG Oral Tablet Extended Release 24 Hour (toPROL XL) Take 0.5 Tablets by mouth in the morning and 0.5 Tablets before bedtime. 90 Tablet 3 025 Active Nitroglycerin 0.4 MG Sublingual Tablet Sublingual (Nitrostat)Delia cations:Coronar y artery disease of [place] artery of [place] heart with stable angina pectoris (HCC) Place 1 Tablet under the tongue every 5 minutes as needed for chest Pain. 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, with heart failure (HCC) 1/2 in the morning, one in the evening 135 Tablet 3 025 2024 Discontinued documented as of this encounter (statuses as of 08/08/2024) Active Problems Problem Noted Date Diagnosed Date Angina, class III 06/21/2024 Aortic ectasia, abdominal 10/11/2023 Coronary artery disease of [place] artery of [place] heart with stable angina pectoris 07/07/2023 Overview [...] locally Recent cardiac cath and stent at [facility] [place] Plavix d/c and started brllinta Coreg and imdur increased Denies any chest pain since recent cath and stent Aware of ongoing diffuse CAD, not a candidate for CABG Met with CT surgery, not interested in aggressive surgery Assessment & Plan (02/20/2024 9:03 AM EDT): Continue cardiology f/u Recently had stents placed at [facility] Assessment & Plan (08/02/2023 12:43 PM [...] 30 Mcg, IM, 12 yrs and above ([id number]) 05/19/2022 Hepatitis B, 20+ yrs 04/24/2017,11/16/2016,10/06 Pneumococcal [...] 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 Conferred with Cardiology regarding stopping carvedilol and switching to metoprolol Cardiology agrees and will trial metoprolol succinate 12.5 mg twice daily; no dose adjustment needed for PD for this drug Orders in; PD nurse will update pt. documented in this encounter Plan of Treatment Upcoming Encounters Date Type Department Care Team (Latest Contact Info) Description 09/24/2024 3:00 PM EDT [facility] [address] [place] [address] Barron Gallo PA-C [address] [place] [address] 10/07/2024 3:30 PM EDT [facility] Visit [facility] [place] [address] [place] [address] Yeni Kent RN [address] [place] [address] 10/22/2024 12:17 PM EDT Hospital Encounter OR [facility], Operating Room, [facility] - 4th Floor [address] [facility] [place] [phone] Laura Kelly, DO [address] [place] [address] 10/22/2024 12:17 PM EDT - 10/22/2024 12:57 PM EDT Surgery OR [facility], Operating Room, [facility] - 4th Floor [address] [facility] [place] [phone] Laura Kelly, DO [address] [place] [address] COLONOSCOPY FLEXIBLE PROXIMAL DIAGNOSTIC 11/07/2024 11:30 AM EDT Office Visit [facility] [address] [facility] [place] [phone] Agatha Beach, DO [address] [place] [address] 11/18/2024 11:30 AM EDT Imaging Radiology [facility] [address] [place] [phone] 11/19/2024 11:30 AM EDT [facility] [address] [place] [phone] [facility] [address] [facility] [address] 11/25/2024 10:45 AM EDT Telemedicine Urology Tamia Lori Wilder [address] [place] [address] Zeferino Bah Jr., MD [address] [place] [address] 02/05/2025 2:30 PM EDT Office Visit Cardiology, [facility] [address] [place] [address] Emeka Sheets MD [address] [place] [address] Scheduled Procedures Name Priority Associated Diagnoses Date/Ti [...] Visit Diagnoses Diagnosis Coronary artery disease of [place] artery of [place] heart with stable angina pectoris (HCC)- Primary Hypertensive chronic kidney disease with 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 (HCC) Type 2 diabetes mellitus with hemoglobin A1c goal of less than or equal to 9.0% (HCC) 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) Advanced care planning/counseling discussion Other specified counseling Coronary artery disease of [place] artery of [place] heart with stable angina pectoris (HCC)- Primary Hypertensive chronic kidney disease with 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 (HCC) Type 2 diabetes mellitus with hemoglobin A1c goal of less than or equal to 9.0% (HCC) Advanced care planning/counseling discussion- Primary Other specified counseling Coronary artery disease of [place] artery of [place] heart with stable angina pectoris (HCC) HTN, [...] infarction affecting left non- dominant side (HCC) ESRD (end stage renal disease) (HCC)- Primary End stage renal disease Screen for colon cancer Special screening for [...] the patient have Health Care Power of Aggregate Conveyor Operator? No * Full Code Date Activated Date [...] Power of Attor indira? No Care Teams Brusher Warp Relationship Specialty Start Date End Date Kopinski, Agatha L, DO [address] [place] [address] PCP - General Family Medicine 07/02/24 documented as of this encounter
--- OUTSIDE RECORDS SUMMARY | 2024-09-13 02:28 | External Medical Summary | Summary of Care ---
Author Name Unknown Organization [facility] Address [address] [facility] [address] Phone [phone] Care Team Providers Care Bracelet And Brooch Maker Name Role Phone ShasabaamarayvetteWilliama Ioana BELL Primary Care Provider [phone] Encounter Details Date Type Department Care Team (Late st Contact Info) Description 07/31/2024 11:30 AM EDT [facility] Visit [facility] [address] [address] Yeni Kent RN [address] [facility] [place] [address] Allergies Active Allergy Reactions Criticality Noted Date Comments Egg-Derived Products Diarrhea 12/13/2019 Egg yolks Sulfa Antibiotics Other (Please comment) 2023 Upset stomach documented as of this encounter (statuses as of 07/31/2024) Medications Cholecalciferol 1000 UNITS Capsule Take 1 [...] SITE DAILY 09/05/19 24 Active Droplet Pen Clovis 32G X 4 MM (Insulin Pen Needle)Indicatio ns:Type 2 diabetes mellitus with hemoglobin A1c goal of less than or equal to 9.0% ([facility]) use three times a day 300 Each 3 10/18/19 24 Active Nitroglycerin 0.4 MG Sublingual Tablet Sublingual (Nitrostat)Indic ations: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 75 Tablet 4 06/10/2024 6:43 AM EST 11/20/19 24 Active Insulin Glargine Solostar 100 UNIT/ML [...] skin once a week. 9 mL 1 06/10/2024 7:30 AM EST 06/04/19 25 Active Atorvastatin [...] 07/10/2024 2:22 PM EST 07/06/19 25 Active Auryxia 1 GM 210 MG(Fe) Oral Tablet (Ferric Citrate) 2 tablets 3 times daily with meals and 1 tablet 2 times daily with snacks 02/17/20 25 Active Brilinta 90 MG Oral Tablet (Ticagrelor) Take 1 Tablet by mouth in the morning and 1 Tablet before bedtime. 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 Assessment & Plan (08/02/2023 12:43 PM EDT): [...] as of this encounter (statuses as of 07/31/2024) Resolved Problems Problem Noted Date Diagnosed Date [...] as of this encounter (statuses as of 07/31/2024) Immunizations Name Administration Dates Next Due COVID-19 mRNA, LNP-s, No Pre serve, 2-Dose Series (Moderna) 08/03/2020,06/28/2020 COVID-19, mRNA, LNP-s, PF, B ooster, 100mcg/0.5mg (Moderna) 09/16/2021,04/06/2021 Covid-19, Mrna, Lnp-s, Pf, B ivalent, 30 Mcg, IM, 12 yrs and above ([employer]) 05/19/2022 Hepatitis B, 20+ yrs 04/24/2017,11/16/2016,10/06 Pneumococcal [...] 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 file Not on file Not on karyn e documented as of this encounter Last Filed Vital Signs Vital Sign Reading Time Taken Comments Blood Pressure 138/72 07/31/2024 12:00 PM EDT Pulse 70 07/31/2024 12:00 PM EDT Temperature 36.3 °C (97.4 °F) 07/31/2024 12:00 PM E DT Respiratory Rate 18 07/31/2024 12:00 PM EDT Oxygen Saturation 95% 07/31/2024 12:00 PM EDT Inhaled Oxygen Concentration - - Weight - - Height - - Body Mass Index - - documented in this encounter Progress Notes * Yeni Kent RN - 07/31/2024 11:46 AM EDT Current Concerns: Pt seen for return RNCM visit Has been doing well Recently saw cardiology - pt has been taking changed dose of Carvedilol 6.25mg 1/2 tab twice a day Also taking Isosorbide once a day as opposed to twice a day - but is taking 1/2 tab twice a day to equal a tablet daily - states it is hard on his stomach if he takes a whole one He states if he takes more than that he is really fatigued Reports he has not had any chest pain recently No LE edema Continues to do PD every night No acute concerns at this time Physical Exam: Physical Exam Constitutional: General: He is not in acute distress. Cardiovascular: Rate and Rhythm: Normal rate and regular rhythm. Pulses: Normal pulses. Heart sounds: Normal heart sounds. Pulmonary: Effort: Pulmonary effort is normal. Breath sounds: Normal breath sounds. Abdominal: Palpations: Abdomen is soft. Skin: General: Skin is warm and dry. Neurological: Mental Status: He is alert. Review of Systems: Review of Systems Constitutional: Negative. HENT: Negative. Eyes: Negative. Respiratory: Negative. Cardiovascular: Negative. Gastrointestinal: Negative. Genitourinary: Negative. Musculoskeletal: Positive for arthralgias and gait problem. Skin: Negative. Psychiatric/Behavioral: Negative. Care Plan Goal Progress: Orders Placed: No orders of the defined types were placed in this encounter. Medications Given: Care Gaps: Care Gaps Care gaps closed this contact: Plan of Care (POC);Education (07/31/24 6629) Type of education: Clinical/disease (07/31/24 1237) Type of plan of care (POC) care gap: Adjustment of plan of care (POC) and/or Integrated Care Plan (ICP);Education and review of exacerbation plan (07/31/24 1237) documented in this encounter Plan of Treatment Upcoming Encounters Date Type Department Care Team (Latest Contact Info) Description 09/24/2024 3:00 PM EDT Home Visit [facility] at [address] [place] [address] Barron Gallo PA-C [address] [place] [address] 10/07/2024 3:30 PM EDT [facility] Visit [facility] [address] [place] [address] Yeni Kent, RN [address] [place] [address] 10/22/2024 12:03 PM EDT Hospital Encounter OR [facility], Operating Room, [facility] - 4th Floor [address] [facility] [place] [phone] Laura Kelly, DO [address] [place] [address] 10/22/2024 12:03 PM EDT - 10/22/2024 12:43 PM EDT Surgery OR [facility], Operating Room, [facility] - 4th Floor [address] [place] [phone] Laura Kelly, DO [address] [place] [address] COLONOSCOPY FLEXIBLE PROXIMAL DIAGNOSTIC 11/07/2024 11:30 AM EDT [facility] [address] [phone] Agatha Beach, DO [address] [address] 11/18/2024 11:30 AM EDT Imaging Radiology [facility] [address] [place] [phone] 11/19/2024 11:30 AM EDT Office Visit Pharmacy, [facility] [address] [phone] [facility] [address] [facility] [place] [address] 11/25/2024 10:45 AM EDT Telemedicine Urology Tamia Wilder[address]ori [address] [address] Zeferino Bah Jr., MD [address] [place] [address] 02/05/2025 2:30 PM EDT Office Visit Cardiology, [facility] [address] [address] Emeka Sheets MD [address] [phone] Scheduled Procedures Name Priority Associated Diagnoses Date/Ti me COLONOSCOPY FLEXIBLE PROXIMAL DIAGNOSTIC Screen for colon cancer 10/22/2024 12:03 PM EDT Health Maintenance Due Date Last [...] Not on filedocumented as of this encounter Advance Directives * Full Code [...] the patient have Health Care Power of Batting Machine Operator Insulation? No * Full Code Date Activated Date [...] Power of Attor indira? No Care Teams Bracelet And Brooch Maker Relationship Specialty Start Date End Date Agatha Beach DO [address] [address] PCP - General Family Medicine 07/02/24 documented as of this encounter
--- OUTSIDE RECORDS SUMMARY | 2024-09-13 02:28 | External Medical Summary | Summary of Care ---
Author Name Unknown Organization [facility] Address [address] [place] [address] Phone [phone] Care Team Providers [employer] Name Role Phone Jenny Beach Primary Care Provider [phone] Reason for Visit * Reason Comments Follow Up 5 week follow up. Ca rdiac Cath 06/30/24. Only took one nitro about two weeks but not instances since. Would like discuss Carvedilol and isosorbide dosage. No other cardiac complaints. 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, with heart failure (HCC) Allergies Active Allergy Reactions Criticality Noted Date Comments Egg-Derived Products Diarrhea 12/13/2019 Egg yolks Sulfa Antibiotics Other (Please comment) 2023 Upset stomach documented as of this encounter (statuses as of 07/23/2024) Medications Cholecalciferol 1000 UNITS Capsule Take 1 [...] 30 Tablet 11 4 3:10 PM EST 024 Active Gentamicin Sulfate 0.1 % External Cream PUT ON EXIT SITE DAILY 024 Active Droplet Pen [place] 32G X 4 MM (Insulin Pen Needle)Indicati ons:Type 2 diabetes mellitus with hemoglobin A1c goal of less than or equal to 9.0% ([facility]) use three times a day 300 Each 3 024 Active Nitroglycerin 0.4 MG Sublingual Tablet Sublingual (Nitrostat)Delia cations:Coronar y artery disease of elim ira artery of elim ira heart with stable angina pectoris ([facility]) Place 1 Tablet under the tongue every 5 minutes as needed for chest Pain. 75 Tablet 4 5 6:43 AM EST 024 Active Insulin Glargine Solostar 100 UNIT/ML Subcutaneous Solution Pen-injector (Lantus SoloStar) Inject 12 Units under the skin in the morning. 15 mL 1 5 1:15 PM EST 024 Active FreeStyle Elis 3 Sensor Use as directed every 14 days. Supplied by home care delivered Active Ozempic (2 MG/DOSE) 8 MG/3ML Subcutaneous Solution Pen-injector (Semaglutide (2 MG/DOSE)) Inject 2 mg under the skin once a week. 9 mL 1 5 7:30 AM EST 025 Active Atorvastatin Calcium 80 MG Oral Tablet (Lipitor)Indica tions:Hyperlipi demia with target LDL less than 70 TAKE ONE TABLET BY MOUTH EVERY DAY 90 Tablet 5 2:22 PM EST 025 Active Ezetimibe 10 MG Oral Tablet (Zetia)Indicati ons:Dyslipidemi a, goal LDL below 70 TAKE ONE TABLET BY MOUTH EVERY MORNING 90 Tablet 5 2:22 PM EST 025 Active Auryxia 1 GM 210 MG(Fe) Oral Tablet (Ferric Citrate) 2 tablets 3 times daily with meals and 1 tablet 2 times daily with snacks 025 Active Brilinta 90 MG Oral Tablet (Ticagrelor) Take 1 Tablet by mouth in the morning and 1 Tablet before bedtime. 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 50 Tablet 3 025 Active Isosorbide Mononitrate ER 120 MG Oral Tablet Extended Release 24 Hour (Imdur) Take 0.5 Tablets by mouth in the morning and 0.5 Tablets before bedtime. 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 025 2024 Discontinued documented as of this encounter (statuses as of 07/23/2024) Active Problems Problem Noted Date Diagnosed Date Angina, class III 06/21/2024 Aortic ectasia, abdominal 10/11/2023 Coronary artery disease of n ative artery of elim ira heart with stable angina pectoris 07/07/2023 Overview [...] locally Recent cardiac cath and stent at [facility] Plavix d/c and started brllinta Coreg and imdur increased Denies any chest pain since recent cath and stent Aware of ongoing diffuse CAD, not a candidate for CABG Met with CT surgery, not interested in aggressive surgery Assessment & Plan (02/20/2024 9:03 AM EDT): Continue cardiology f/u Recently had stents placed at [facility] Assessment & Plan (08/02/2023 12:43 [...] as of this encounter (statuses as of 07/23/2024) Resolved Problems Problem Noted Date Diagnosed Date [...] as of this encounter (statuses as of 07/23/2024) Immunizations Name Administration Dates Next Due COVID-19 [...] Former Cigarettes 1 18 1 967 - 1985 Passive Smoke Exposure: Past Smokeless Tobacco: Never [...] 02/09/2024 Does the household have a re gular source of income? 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 Not on file Not on file Not on karyn e documented as of this encounter Last Filed Vital Signs Vital Sign Reading Time Taken Comments Blood Pressure 116/74 07/23/2024 10:54 AM EST Pulse 80 07/23/2024 10:54 AM EST Temperature - - Respiratory Rate 16 07/23/2024 10:54 AM EST Oxygen Saturation - - Inhaled Oxygen Concentration - - Weight 112.5 kg (248 lb) 07/23/2024 10:54 AM EST Height - - Body Mass Index 34.59 07/11/2024 9:26 AM EST documented in this encounter Progress Notes * Emeka Sheets MD - 07/23/2024 11:00 AM EST July 23, 2024 Cardiology Follow Up Referring Provider: PCP: JENNY BEACH [address] [place] [id number] [phone] Chief Complaint: Coronary artery disease with angina pectoris SUBJECTIVE: Paramjit Limon is a 74 year old year old male with ongoing cardiac issues Multivessel coronary disease status post cardiac catheterization following abnormal stress testing performed as part of pre transplant evaluation, grade 2 3 angina pectoris Coronary angiogram: July 07, 2023 Coronary disease - hemodynamically significant Left main is heavily calcified pLAD with [...] also heavily calcified without suitable target for bypass cath with right radial access issues; Left groin hematoma post cath, resolved Coronary intervention and separate setting on January 01, 2024 [facility] drug-eluting stents tothe left anterior descending and circumflex/circumflex obtuse marginal Repeat cardiac catheterization July 01, 2024: Left anterior descending with severe mid and distal stenoses with distal occlusion, left circumflexostial 95% and midvessel 95% extending to OM 1 treated with drug-eluting stent Hypertension Dyslipidemia Elevated BMI Diabetes, type 2 insulin-requiring Hypertriglyceridemia with history of pancreatitis Hyperaldosteronism Adrenal adenoma status post resection JACOB, not on CPAP. 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 History of Present Illness Paramjit Limon is a 74 year old male with coronary artery disease who presents for follow-up aftera recent angioplasty. He underwent an coronary intervention on July 01, where a vessel in the circumflex artery wasopened. Since the procedure, he has experienced significant improvement with no episodes of chest pain, except for one instance where he took nitroglycerin. Prior to the procedure, he was using nitroglycerin frequently, up to four or five times a day. He has been experiencing fatigue, which he attributes to his current medication regimen. He has reduced his carvedilol dose to 6.25 mg, taking half a tablet twice per day. He also adjusted his isosorbide mononitrate intake to half a tablet twice a day, as the full dose made him feel sick and fatigued. His blood pressure has been consistently low, but his heart rate has increased slightly since reducing the carvedilol dose. He has been switched from Plavix to Brilinta without any issues. No recent fevers, chills, infections, bleeding issues, or dark stools. He has some bruising on his hand, which occasionally bleeds due to his medication, but it is healing well with the use of cream and gauze. He continues to undergo peritoneal dialysis, which is generally going well, although his creatininelevels have been elevated. An attempt to use a daytime fluid exchange with starch was made, but it resulted in labored breathing and poor sleep, so it was discontinued. He is under the care of Dr. Ibeth Pandya for his nephrology needs. Walking seems to improve his condition. He lives in [place] and has not participated in cardiac rehab before personal choice A Complete Review of Systems is as stated above or negative. Patient Active Problem List Diagnosis HTN, goal below 140/90 JACOB (obstructive sleep apnea) Dyslipidemia, goal LDL below 70 Gout Type 2 diabetes mellitus with hemoglobin A1c goal of less than or equal to 9.0% (HCC) History of hyperaldosteronism Ptosis of eyelid Diabetes mellitus with nephropathy ([facility]) Carotid artery aneurysm ([facility]) Carotid artery dissection ([facility]) Hypertensive kidney disease with chronic kidney disease stage IV (HCC) Chronic kidney disease, stage 4 (severe) ([facility]) Type 2 diabetes mellitus with stage 4 chronic kidney disease, with long-term current use of insulin([facility]) Pancreatic lesion ESRD (end stage renal disease) ([facility]) Hypertensive chronic kidney disease with 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 ([facility]) 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) Hypertensive heart and renal disease, 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, with heart failure ([facility]) 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 30 Cap 3 vitamin e (AQUASOL E) 400 UNIT Capsule Take 1 Capsule by mouth in the morning. Iron Sucrose 20 MG/ML Intravenous Solution Administer 200 mg intravenously every 14 days. Calcium Acetate (Phos Binder) 667 MG Oral Capsule (Phoslo) take 2 capsules by mouth with meals and take 1 capsule with SNACKS. MAX OF 8 CAPS/DAY 240 Capsule Aspirin 81 MG Oral Tablet Chewable Chew & swallow 1 Tablet by mouth every morning. 30 Tablet 11 Gentamicin Sulfate 0.1 % External Cream PUT ON EXIT SITE DAILY Droplet Pen [place] 32G X 4 MM (Insulin Pen Needle) use three times a day 300 Each 3 Nitroglycerin 0.4 MG Sublingual Tablet Sublingual (Nitrostat) Place 1 Tablet under the tongue every5 minutes as needed for chest Pain. 75 Tablet 4 Insulin Glargine Solostar 100 UNIT/ML Subcutaneous Solution Pen-injector (Lantus SoloStar) Inject 12 Units under the skin in the morning. 15 mL 1 FreeStyle Elis 3 Sensor Use as directed every 14 days. Supplied by home care delivered Ozempic (2 MG/DOSE) 8 MG/3ML Subcutaneous Solution Pen-injector (Semaglutide (2 MG/DOSE)) Inject 2 mg under the skin once a week. 9 mL 1 Atorvastatin Calcium 80 MG Oral Tablet (Lipitor) TAKE ONE TABLET BY MOUTH EVERY DAY 90 Tablet 0 Ezetimibe 10 MG Oral Tablet (Zetia) TAKE ONE TABLET BY MOUTH EVERY MORNING 90 Tablet 0 Auryxia 1 GM 210 MG(Fe) Oral Tablet (Ferric Citrate) 2 tablets 3 times daily with meals and 1 tablet 2 times daily with snacks Brilinta 90 MG Oral Tablet (Ticagrelor) Take 1 Tablet by mouth in the morning and 1 Tablet before bedtime. Carvedilol 6.25 MG Oral Tablet (Coreg) 1/2 in the morning, one in the evening 135 Tablet 3 Isosorbide Mononitrate ER 120 MG Oral Tablet Extended Release 24 Hour (Imdur) Take 0.5 Tablets by mouth in the morning. 50 Tablet 3 No current facility-administered medications for this visit. Facility-Administered Medications Ordered in Other Visits Medication Dose Route Frequency Provider Last Rate Last Admin midazolam (VERSED) 2 MG/2ML inj Once PRN Gina Gay CRNA propofol (DIPRIVAN) 1 % bolus Once PRN Gina Gay CRNA 20 mg at 04/17/12 0935 metoprolol tartrate (LOPRESSOR) inj Once PRN Gina Gay CRNA 5 mg at 04/17/12 0919 hydrALAZINE (APRESOLINE) inj Once PRN Gina Gay CRNA 5 mg at 04/17/12 0935 OBJECTIVE/PHYSICAL EXAMINATION: BP 116/74 | Pulse 80 | Resp 16 | Wt 112.5 kg (248 lb) | BMI 34.59 kg/m² | BSA 2.37 m² General: Obese, Age appropriate in no acute distress Head: normocephalic, no masses, lesions, tenderness or abnormalities Eyes: conjunctiva are pink and non-injected, sclera clear Throat: clear Nares: without discharge Neck: supple, no adenopathy, normal jugular venous pulse, no hepatojugular reflux, no carotid bruits Chest: normal shape and normal respiratory effort Lungs: clear to auscultation and percussion Cardiac Exam: - regular rate & rhythm, grade 1/6 systolic murmur, no diastolic murmur, gallop or rub - normal S-1, normal S-2 Abdomen: abdomen soft, non-tender, no abnormal masses, no hepatosplenomegaly, no abdominal bruit, no femoral bruit Musculoskeletal: no gait disturbance, no joint inflammation, no deforming arthritis, left hand bandaged Extremities: no edema, no cyanosis, pulses intact 1-2+/4 Neuro: grossly normal exam Data: EKG March 20, 2024 Normal sinus rhythm at 66 beats per minute with moderate voltage criteria for left hypertrophy T-wave inversion lateral leads Echocardiogram April 04, 2024 The left ventricular systolic function is mildly reduced. Calculated LV ejection Fraction = 46% (bi-plane method of discs). There is a large sized apical, septal, anteroseptal, and inferior wall motion abnormality with hypokinesis to dyskinesis of the segments. The wall thickness is mildly increased in segments with normal wall motion. The left ventricular diastolic function is mildly abnormal (grade I). Mild aortic valve stenosis is present. Mild mitral regurgitation is present. Compared to last available study changes are noted as follows: Apical wall motion abnormality and mild LV systolic dysfunction now present. Assessment & Plan Coronary Artery Disease Post-procedure improvement with reduced angina episodes. Discussed risks of further intervention. Patient hesitant about increased risk and not considering open heart surgery due to low success rate and high risk. - Continue current management. - Discuss potential for more aggressive intervention with Dr. Cruz if symptoms worsen. Hypertension Blood pressure controlled, heart rate elevated due to reduced carvedilol. - Adjust carvedilol dosage to help control heart rate. Fatigue Fatigue likely related to medication regimen. Adjusted carvedilol and isazorbide due to side effects. - Adjust carvedilol to 6.25 mg in the evening and 3.125 mg in the morning. - Reduce isosorbide MN to 60 mg once a day in the morning. - Monitor for changes in fatigue or increase in angina and adjust medications as needed. Chronic Kidney Disease on Peritoneal Dialysis Managed by de alcholizer. Recent dialysis adjustments due to elevated creatinine and symptoms. - Continue current dialysis regimen. - Consult with Dr. Ibeth Pandya for further management of dialysis and creatinine levels. Medication Management On Brilinta and aspirin without issues. Potential for bleeding due to dual antiplatelet therapy- Continue Brilinta and aspirin as prescribed. - Monitor for any signs of bleeding or bruising. DISPOSITION: Routine follow-up 3 months Emeka Sheets MD Cardiology, [address] [place] [address] documented in this encounter Nursing Notes * Ramon Sanchez LPN - 07/23/2024 10:52 AM EST Patient identified by full name and date of Chief Complaint Patient presents with Follow Up 5 week follow up. Cardiac Cath 06/30/24. Only took one nitro about two weeks but not instances since.Would like discuss Carvedilol and isosorbide dosage. No other cardiac complaints. Examination Room: 13 Name: Paramjit Limon Date of : (1950). Reason for Visit: 5 week follow up Interim Hospitalization(s): Cath at [facility] 06/30/24 Problems/Concerns: See chief complaint Chest Pain/SOB: See chief complaint [facility] Discussed: Yes [facility] is a way you can talk to your provider online through e-mail. Would you like to sign up? I can activate it for you? ALREADY ACTIVE Patient was instructed to not get up on the exam table until directed and assisted by their provider; patient is to remain seated in the chair/ wheelchair/ exam table for fall prevention and safety reasons. Patient is aware to have assistance to step down off exam table with personnel. Patient voiced full comprehension of instructions. documented in this encounter Plan of Treatment Upcoming Encounters Date Type Department Care Team (Latest Contact Info) Description 07/29/2024 3:30 PM EDT Home Visit [facility] [address] [place] [address] Yeni Kent, RN [address] [place] [address] 09/24/2024 3:00 PM EDT Home Visit [facility], [facility] [address] [place] [address] Barron Gallo PA-C [address] [place] [address] 10/22/2024 11:55 AM EDT Hospital Encounter OR [facility], Operating Room, [facility] - 4th Floor [address] [facility] [phone] Laura Kelly, DO [address] [place] [address] 10/22/2024 11:55 AM EDT - 10/22/2024 12:35 PM EDT Surgery OR [facility], Operating Room, [facility] - 4th Floor [address] [facility] [place] [phone] Laura Kelly, DO [address] [place] [address] COLONOSCOPY FLEXIBLE PROXIMAL DIAGNOSTIC 11/07/2024 11:30 AM EDT Office Visit [facility] [address] [facility] [place] [phone] Jenny Beach, DO [address] [place] [address] 11/18/2024 11:30 AM EDT Imaging Radiology [facility] [address] [place] [phone] 11/19/2024 11:30 AM EDT Office Visit Pharmacy, Марина Silva [address] [place] [phone] Марина [facility] [address] [facility] [place] [address] 11/25/2024 10:45 AM EDT Telemedicine Urology Lori Doshi [address] [place] [address] Zeferino Bah Jr., MD [address] [place] [address] 02/05/2025 2:30 PM EDT Office Visit Cardiology, [facility] [address] [place] [address] Emeka Sheets MD [address] [facility] [place] [address] Scheduled Procedures Name Priority Associated Diagnoses Date/Ti me COLONOSCOPY FLEXIBLE PROXIMAL DIAGNOSTIC Screen for colon cancer 10/22/2024 11:55 AM EDT Health Maintenance Due Date Last Done [...] Visit Diagnoses Diagnosis 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 (HCC)- Primary Hypertensive chronic kidney disease with 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 (HCC) Type 2 diabetes mellitus with hemoglobin A1c goal of less than or equal to 9.0% (HCC) 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) Advanced care planning/counseling discussion Other specified counseling 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 (HCC)- Primary Hypertensive chronic kidney disease with 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 (HCC) Type 2 diabetes mellitus with hemoglobin A1c goal of less than or equal to 9.0% (HCC) Advanced care planning/counseling discussion- Primary Other specified counseling 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 No * Full Code Date Activated Date [...] Power of Attor indira? No Care Teams [employer] Relationship Specialty Start Date End Date Jenny Beach DO [address] [place] [address] PCP - General Family Medicine 07/02/24 documented as of this encounter
--- OUTSIDE RECORDS SUMMARY | 2024-09-13 02:28 | External Medical Summary | Summary of Care ---
Author Name Unknown Organization [facility] Address [address] [place] [address] Phone [phone] Care Team Providers Care Rug Inspector Helper Name Role Phone Agatha Beach Primary Care Provider [phone] Reason for Visit * Reason Onset Date Comments [facility]: Engagement 07/26/2024 Encounter Details Date Type Department Care Team (Late st Contact Info) Description 07/26/2024 Telephone [facility] [place] [address] [place] [id number] Mariana Brennan, JACOB [address] [place], [place] [id number] [facility]: Engagement Allergies Active Allergy Reactions Criticality Noted Date Comments Egg-Derived Products Diarrhea 12/13/2019 Egg yolks Sulfa Antibiotics Other (Please comment) 2023 Upset stomach documented as of this encounter (statuses as of 07/26/2024) Medications Cholecalciferol 1000 UNITS Capsule Take 1 [...] SITE DAILY 09/05/19 24 Active Droplet Pen [place] 32G X 4 MM (Insulin Pen Needle)Indicatio ns:Type 2 diabetes mellitus with hemoglobin A1c goal of less than or equal to 9.0% ([facility]) use three times a day 300 Each 3 10/18/19 24 Active Nitroglycerin 0.4 MG Sublingual Tablet Sublingual (Nitrostat)Indic ations: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 50 Tablet 3 07/24/19 Active documented as of this encounter (statuses as of 07/26/2024) Active Problems Problem Noted Date Diagnosed Date Angina, class III 06/21/2024 Aortic ectasia, abdominal 10/11/2023 Coronary artery disease of [place] artery of [place] heart with stable angina pectoris 07/07/2023 Overview [...] locally Recent cardiac cath and stent at [facility] Plavix d/c and started brllinta Coreg and imdur increased Denies any chest pain since recent cath and stent Aware of ongoing diffuse CAD, not a candidate for CABG Met with CT surgery, not interested in aggressive surgery Assessment & Plan (02/20/2024 9:03 AM EDT): Continue cardiology f/u Recently had stents placed at [facility] Assessment & Plan (08/02/2023 12:43 PM EDT): [...] as of this encounter (statuses as of 07/26/2024) Resolved Problems Problem Noted Date Diagnosed Date [...] as of this encounter (statuses as of 07/26/2024) Immunizations Name Administration Dates Next Due COVID-19 [...] 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 Not on karyn e documented as of this encounter Miscellaneous Notes * Telephone Encounter - Mariana Brennan OSA - 07/26/2024 3:14 PM EST TT request to place acute need on [place], moved appt to 07/31, approves documented in this encounter Plan of Treatment Upcoming Encounters Date Type Department Care Team (Latest Contact Info) Description 07/31/2024 11:30 AM EDT Home Visit [facility], [facility] [address] [place] [address] Yeni Kent, RN [address] [place] [address] 09/24/2024 3:00 PM EDT Home Visit [facility], [facility] [address] [place] [address] Barron Gallo PA-C [address] [place] [address] 10/22/2024 11:50 AM EDT Hospital Encounter OR [facility], Operating Room, [facility] - 4th Floor [address] [place] [phone] Laura Kelly, DO [address] [place] [address] 10/22/2024 11:50 AM EDT - 10/22/2024 12:30 PM EDT Surgery OR [facility], Operating Room, [facility] - 4th Floor [address] [facility] [place] [phone] Laura Kelly, DO [address] [place] [address] COLONOSCOPY FLEXIBLE PROXIMAL DIAGNOSTIC 11/07/2024 11:30 AM EDT Office Visit [facility] [address] [facility] [place] [phone] Agatha Beach, DO [address] [place] [address] 11/18/2024 11:30 AM EDT Imaging Radiology [facility] [address] [place] [phone] 11/19/2024 11:30 AM EDT Office Visit Pharmacy, [facility] [address] [place] [phone] Марина [facility] [address] [facility] [place] [address] 11/25/2024 10:45 AM EDT Telemedicine Urology Lori Doshi [address] [place] [address] Zeferino Bah Jr., MD [address] [place] [address] 02/05/2025 2:30 PM EDT Office Visit Cardiology, [facility] [address] [place] [address] Emeka Sheets MD [address] [place] [address] Scheduled Procedures Name Priority Associated Diagnoses Date/Ti me COLONOSCOPY FLEXIBLE PROXIMAL DIAGNOSTIC Screen for colon cancer 10/22/2024 11:50 AM EDT Health Maintenance Due Date Last [...] the patient have Health Care Power of Journeyman Operator Assistant? No * Full Code Date Activated Date [...] Power of Attor indira? No Care Teams Rug Inspector Helper Relationship Specialty Start Date End Date Agatha Beach DO [address] [place] [address] PCP - General Family Medicine 07/02/24 documented as of this encounter
--- OUTSIDE RECORDS SUMMARY | 2024-09-13 02:28 | External Medical Summary | Summary of Care ---
Author Name Unknown Organization [facility] Address [address] [place] [address] Phone [phone] Care Team Providers Care Repair Mechanic Name Role Phone Agatha Beach Primary Care Provider [phone] Encounter Details Date Type Department Care Team (Late st Contact Info) Description 07/22/2024 Orders Only Outcomes Research Department [address] [place] [address] Patsy Suero CHRA [facility] Other*[id number] Allergies Active Allergy Reactions Criticality Noted Date Comments Egg-Derived Products Diarrhea 12/13/2019 Egg yolks Sulfa Antibiotics Other (Please comment) 2023 Upset stomach documented as of this encounter (statuses as of 07/22/2024) Medications Cholecalciferol 1000 UNITS Capsule Take 1 [...] SITE DAILY 09/05/19 24 Active Droplet Pen [place] 32G X 4 MM (Insulin Pen Needle)Indicatio ns:Type 2 diabetes mellitus with hemoglobin A1c goal of less than or equal to 9.0% ([facility]) use three times a day 300 Each 3 10/18/19 24 Active Nitroglycerin 0.4 MG Sublingual Tablet Sublingual (Nitrostat)Indic ations:Coronary artery disease of [place] artery of [place] heart with stable angina pectoris (HCC) Place [...] the morning and 1 Tablet before bedtime. 02/18/20 25 Active Isosorbide Mononitrate ER 120 MG Oral Tablet Extended Release 24 Hour (Imdur) Take 1 Tablet by mouth in the morning. 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 07/11/19 Active documented as of this encounter (statuses as of 07/22/2024) Active Problems Problem Noted Date Diagnosed Date Angina, class III 06/21/2024 Aortic ectasia, abdominal 10/11/2023 Coronary artery disease of [place] artery of [place] heart with stable angina pectoris 07/07/2023 Overview [...] and stent at [facility] Plavix d/c and started brllinta Coreg and imdur increased Denies any chest pain since recent cath and stent Aware of ongoing diffuse CAD, not a candidate for CABG Met with CT surgery, not interested in aggressive surgery Assessment & Plan (02/20/2024 9:03 AM EDT): Continue cardiology f/u Recently had stents placed at [facility] Assessment & Plan (08/02/2023 12:43 PM [...] as of this encounter (statuses as of 07/22/2024) Resolved Problems Problem Noted Date Diagnosed Date [...] as of this encounter (statuses as of 07/22/2024) Immunizations Name Administration Dates Next Due COVID-19 [...] No 02/09/2024 Does the household have a presbyterian kaseman hospitallar source of income? 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 Not on file Not on karyn e documented as of this encounter Plan of Treatment Upcoming Encounters Date Type Department Care Team (Latest Contact Info) Description 07/23/2024 11:00 AM EST Office Visit Cardiology, [facility] [address] [place] [address] Emeka Sheets MD [address] [place] [address] 07/29/2024 3:30 PM EDT Home Visit [facility] [address] [place] [address] Yeni Kent RN [address] [place] [address] 09/24/2024 3:00 PM EDT Home Visit [facility], [facility] [address] [place] [address] Barron Gallo PA-C [address] [place] [address] 10/22/2024 11:55 AM EDT Hospital Encounter OR [facility], Operating Room, [facility] - 4th Floor [address] [facility] [place] [phone] Laura Kelly, DO [address] [place] [address] 10/22/2024 11:55 AM EDT - 10/22/2024 12:35 PM EDT Surgery OR [facility], Operating Room, [facility] - 4th Floor [address] [place] [phone] Laura Kelly, DO [address] [place] [address] COLONOSCOPY FLEXIBLE PROXIMAL DIAGNOSTIC 11/07/2024 11:30 AM EDT [facility] [address] [facility] [place] [phone] Agatha Beach, DO [address] [facility] [place] [address] 11/18/2024 11:30 AM EDT Imaging Radiology [facility] [address] [place] [phone] 11/19/2024 11:30 AM EDT Office [facility] Pharm[facility], [facility] [address] [facility] [place] [phone] Марина [address] [place] [address] 11/25/2024 10:45 AM EDT Telemedicine Urology Tamia Wilder[address]ori [address] [place] [address] Zeferino Bah Jr., MD [address] [place] [address] Scheduled Orders Name Type Priority Associated Diagnoses Orde r Schedule MYCODE SUBSEQUENT ADULT Lab Routine [employer] Other*[id number] Every 6 Months for 2 Occurrences starting 07/22/2024 until 08/11/2025 Scheduled Procedures Name Priority Associated Diagnoses Date/Ti me COLONOSCOPY FLEXIBLE PROXIMAL DIAGNOSTIC Screen for colon cancer 10/22/2024 11:55 AM EDT Health Maintenance Due Date Last Done Comments Sigmoidoscopy 1996 Colonoscopy 04/17/2022 04/17/2012, 04/17/2012 Adult Wellness Visit 01/10/2023 01/10/2022, 01/07/20 21 COVID-19 Vaccine ( season) 2024 05/19/2022, 09/16/2021, 04/06/2021, Additional history exists Influenza Vaccine (FLU shot) (#1) 2024 05/01/2017 (Declined) HbA1c 07/31/2024 02/01/2024, 0805/2023, 07/08/2023, Additional history exists Depression Screening 01/10/2025 [...] Visit Diagnoses Diagnosis Coronary artery disease of [place] artery of [place] heart with stable angina pectoris (HCC)- Primary Hypertensive chronic kidney disease with 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 (HCC) Type 2 diabetes mellitus with hemoglobin A1c goal of less than or equal to 9.0% (HCC) 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) Advanced care planning/counseling discussion Other specified counseling Coronary artery disease of [place] artery of [place] heart with stable angina pectoris (HCC)- Primary Hypertensive chronic kidney disease with 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 (HCC) Type 2 diabetes mellitus with hemoglobin A1c goal of less than or equal to 9.0% (HCC) Advanced care planning/counseling discussion- Primary Other specified counseling Coronary artery disease of [place] artery of [place] heart with stable angina pectoris (HCC) HTN, [...] infarction affecting left non- dominant side (HCC) [employer] Other*[id number] Screen for colon cancer Special screening for [...] the patient have Health Care Power of Brass Finisher? No * Full Code Date Activated Date [...] Power of Attor indira? No Care Teams Repair Mechanic Relationship Specialty Start Date End Date Agatha Beach DO [address] [place] [address] PCP - General Family Medicine 07/02/24 documented as of this encounter
--- OUTSIDE RECORDS SUMMARY | 2024-09-13 02:29 | External Medical Summary | Summary of Care ---
Author Name Unknown Organization [facility] Address [address] [facility] [place] [address] Phone [phone] Care Team Providers Care Planer Feeder Name Role Phone Agatha Beach DO Primary Care Provider Reason for Visit * Reason Comments Follow Up Had a tuyet wall e done and a follow up from [place] concerns at this time Encounter Details Date Type Department Care Team (Late st Contact Info) Description 07/11/2024 9:30 AM EST Office Visit [facility] [place] [address] [facility] [place] [phone] Agatha Beach, DO [address] 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, with heart failure (HCC); 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-dominant side (HCC); Abdominal pain, epigastric; Hypertensive kidney disease with chronic kidney disease stage IV (HCC); ESRD (end stage renal disease) ([facility]) Allergies Active Allergy Reactions Criticality Noted Date Comments Egg-Derived Products Diarrhea 12/13/2019 Egg yolks Sulfa Antibiotics Other (Please comment) 2023 Upset stomach documented as of this encounter (statuses as of 07/11/2024) Medications Cholecalciferol 1000 UNITS Capsule Take 1 [...] EXIT SITE DAILY 024 Active Droplet Pen [place] 32G X 4 MM (Insulin Pen Needle)Indicati ons:Type 2 diabetes mellitus with hemoglobin A1c goal of less than or equal to 9.0% ([facility]) use three times a day 300 Each 3 024 Active Nitroglycerin 0.4 MG Sublingual Tablet Sublingual (Nitrostat)Delia cations:Coronar y artery disease of [place] artery of [place] heart with stable angina pectoris ([facility]) Place 1 Tablet under the tongue every [...] the morning and 1 Tablet before bedtime. Active Isosorbide Mononitrate ER 120 MG Oral Tablet Extended Release 24 Hour (Imdur) Take 1 Tablet by mouth in the morning. 025 Active Carvedilol 12.5 MG Oral Tablet (Coreg)Indicati ons:Coronary artery disease of [place] artery of [place] heart with stable angina pectoris (HCC),HTN, goal below 140/90,Hyperten sive heart and renal disease, 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, with heart failure (HCC) Take 0.5 Tablets by mouth in the morning and 0.5 Tablets before bedtime. 025 Active Carvedilol 12.5 MG Oral Tablet (Coreg)Indicati ons:Coronary artery disease of [place] artery of [place] heart with stable angina pectoris (HCC),HTN, goal below 140/90,Hyperten sive heart and renal disease, 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 025 2024 Discontinued documented as of this encounter (statuses as of 07/11/2024) Active Problems Problem Noted Date Diagnosed Date Angina, class III 06/21/2024 Aortic ectasia, abdominal 10/11/2023 Coronary artery disease of n ative artery of [place] heart with stable angina pectoris 07/07/2023 Overview [...] locally Recent cardiac cath and stent at [facility] Plavix d/c and started brllinta Coreg and imdur increased Denies any chest pain since recent cath and stent Aware of ongoing diffuse CAD, not a candidate for CABG Met with CT surgery, not interested in aggressive surgery Assessment & Plan (02/20/2024 9:03 AM EDT): Continue cardiology f/u Recently had stents placed at [facility] Assessment & Plan (08/02/2023 12:43 PM [...] as of this encounter (statuses as of 07/11/2024) Resolved Problems Problem Noted Date Diagnosed Date [...] protocol #1 Acute pain of left knee 01/17/2017 103 05/2016 Hypercalcemia 06/10/2016 04/25/2019 CKD (chronic kidney disease) [...] as of this encounter (statuses as of 07/11/2024) Immunizations Name Administration Dates Next Due COVID-19 mRNA, LNP-s, No Pre serve, 2-Dose Series (Moderna) 08/03/2020,06/28/2020 COVID-19, mRNA, LNP-s, PF, B ooster, 100mcg/0.5mg (Moderna) 09/16/2021,04/06/2021 Covid-19, Mrna, Lnp-s, Pf, B ivalent, 30 Mcg, IM, 12 yrs and above (doo) 05/19/2022 Hepatitis B, 20+ yrs 04/24/2017,11/16/2016,10/06 Pneumococcal Conjugate Vacc, 13 Valent (Prevnar) 06/16/2016 Pneumococcal Polysaccharide PPV23 (Pneumovax) 04/25/2019,06/23/2012 Varicella Zoster Vaccine (Adult) 06/14/2013 Zoster Vaccine Recombinant (Shingrix) 04/24/2020 ,01/22/2020 documented as of this encounter Social History Tobacco Use Types Packs/Day Years Used Date Smoking Tobacco: Former Cigarettes 1 18 1 967 - 1984 Passive Smoke Exposure: Past Smokeless Tobacco: Never Tobacco Cessation:Counseling Given: Not Answered Comments:quit in 1984 Alcohol Use Standard Drinks/Week [...] Industry Job Start Date Job End Date [employer] Not on file Not on file Not on karyn e documented as of this encounter Last Filed Vital Signs Vital Sign Reading Time Taken Comments Blood Pressure 112/70 07/11/2024 9:26 AM EST Pulse 74 07/11/2024 9:26 AM EST Temperature 36.3 °C (97.3 °F) 07/11/2024 9:26 AM ES T Respiratory Rate 17 07/11/2024 9:26 AM EST Oxygen Saturation 95% 07/11/2024 9:26 AM EST Inhaled Oxygen Concentration - - Weight 113.7 kg (250 lb 11.2 oz) 07/11/2024 9:26 AM EST Height 180.3 cm (5' 11") 07/11/2024 9:26 AM EST Body Mass Index 34.97 07/11/2024 9:26 AM EST documented in this encounter Progress Notes * Agatha Beach, DO - 07/11/2024 10:22 AM EST Subjective: Paramjit Limon is a 74 year old male. Chief Complaint Patient presents with Follow Up Had a stint procedure done and a follow up from that No concerns at this time HPI: 74 year old male here today for a follow-up. He has hx of ESRD, and is on peritoneal dialysis at home nightly. He follows with nephrology hx of stroke, has type 2 diabetes. Presents today with his for a follow-up. Last night he has pain in the epigastric area shortly after eating a hamburger with onions. Limestone like heartburn, and took a nitro and then 2 tums and then this went away. Today he feels tired. Last week he was in [facility] over night for heart cath and looks like he had stent placed in his circumflex. He had an increase in his Imdur , COreg and plavix switched over to Brilinta. Reports black stools but he is now on Auryxia an iron supplement. To note his coreg is back down to 6.25 mg bid,as this BP was low. He has hx of IPMN in his pancreas, last image of this ( MRI > was in 2020) We talked about repeating this but will hold off for now as he has a lot of different appt. If the pain returns will get this completed. To consider PPI for ongoing heart burn. Hemoglogin lab was 11. This was from dialysis. Hba1c was 6.4. All medications were reviewed. PHM: Patient Active Problem List Diagnosis HTN, goal below 140/90 JACOB (obstructive sleep apnea) Dyslipidemia, goal LDL below 70 Gout Type 2 diabetes mellitus with hemoglobin A1c goal of less than or equal to 9.0% (HCC) History of hyperaldosteronism Ptosis of eyelid Diabetes mellitus with nephropathy (HCC) Carotid artery aneurysm (HCC) Carotid artery dissection (HCC) Hypertensive kidney disease with chronic kidney disease stage IV (HCC) Chronic kidney disease, stage 4 (severe) (HCC) Type 2 diabetes mellitus with stage 4 chronic kidney disease, with long-term current use of insulin(HCC) Pancreatic lesion ESRD (end stage renal disease) (HCC) Hypertensive chronic kidney disease with 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 (HCC) 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) Hypertensive heart and renal disease, 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 Isosorbide Mononitrate ER 120 MG Oral Tablet Extended Release 24 Hour (Imdur) Take 1 Tablet by mouth in the morning. Carvedilol 12.5 MG Oral Tablet (Coreg) Take 1 Tablet by mouth in the morning and 1 Tablet before bedtime. No current facility-administered medications for this visit. [...] Gay CRNA 5 mg at 04/17/12 0935 Review of patient's allergies indicates: Allergen Reactions Egg-Derived Products Diarrhea Egg yolks Sulfa Antibiotics Other (Please comment) Upset stomach Objective: BP 112/70 | Pulse 74 | Temp 97.3 °F (36.3 °C) | Resp 17 | Ht 5' 11" (1.803 m) | Wt 250 lb 11.2 oz(113.7 kg) | SpO2 95% | BMI 34.97 kg/m² | BSA 2.39 m² Physical Exam: General: alert, healthy, and no distress Heart: regular rate & rhythm, no murmur, and no gallops Lungs: chest symmetric with normal AP diameter, no chest deformities noted, no chest wall tenderness, lungs clear to auscultation Abdomen: abdomen soft, non-tender, obese, normal bowel sounds, no masses or organomegaly, and peritoneal site was clean, and no surrounding redness. Extremities: no edema ASSESSMENT/PLAN: HTN, goal below 140/90 (Primary) Stable. Coronary artery disease of [place] artery of [place] heart with stable angina pectoris (HCC) After increase in imdur and stent placed, not using nitro as much. 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 Abdominal pain, epigastric Resolved If ongoing will check lipase, and MRI of the abdomen to check his pancreas. Hypertensive kidney disease with chronic kidney disease stage IV (HCC) ESRD (end stage renal disease) (HCC) Follow-up: Return in about 4 months (around 11/08/2024). | Check-out note: Ok 20 Agatha Beach DO documented in this encounter Nursing Notes * Yolanda Carpenter LPN - 07/11/2024 9:39 AM EST The patient has been properly identified by confirmation of name and date of . Chief Complaint Patient presents with Follow Up Had a stint procedure done and a follow up from that No concerns at this time documented in this encounter Plan of Treatment Upcoming Encounters Date Type Department Care Team (Latest Contact Info) Description 07/23/2024 11:00 AM EST Office Visit Cardiology, [address] [place] [address] Emeka Sheets MD [address] [place] [address] 07/29/2024 3:30 PM EDT Home Visit [facility] [address] [place] [address] Yeni Kent, RN [address] [place] [address] 09/24/2024 3:00 PM EDT Home Visit [facility] [address] [place] [address] Barron Gallo PA-C [address] [place] [address] 10/22/2024 11:23 AM EDT Hospital Encounter OR [facility], Operating Room, [facility] - 4th [facility] [address] [facility] [place] [phone] Laura Kelly, DO [address] [place] [address] 10/22/2024 11:23 AM EDT - 10/22/2024 12:03 PM EDT Surgery OR [facility], Operating Room, [facility] - 4th Floor [address] [place] [address] Laura Kelly, DO [address] [place] [address] COLONOSCOPY FLEXIBLE PROXIMAL DIAGNOSTIC 11/18/2024 11:30 AM EDT Imaging Radiology [facility] [address] [place] [id number] 11/19/2024 11:30 AM EDT Office Visit Pharmacy, Марина Silva [address] [place] [phone] Марина, [facility] [address] [facility] [place] [address] 11/25/2024 10:45 AM EDT Telemedicine Urology [facility] [address] [address] [place] [address] Zeferino Bah Jr., MD [address] [place] [address] Scheduled Procedures Name Priority Associated Diagnoses Date/Ti me COLONOSCOPY FLEXIBLE PROXIMAL DIAGNOSTIC Screen for colon cancer 10/22/2024 11:23 AM EDT Health Maintenance Due Date Last [...] Visit Diagnoses Diagnosis Coronary artery disease of [place] artery of [place] heart with stable angina pectoris (HCC)- Primary Hypertensive chronic kidney disease with 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 (HCC) Type 2 diabetes mellitus with hemoglobin A1c goal of less than or equal to 9.0% (HCC) 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) Advanced care planning/counseling discussion Other specified counseling Coronary artery disease of [place] artery of [place] heart with stable angina pectoris (HCC)- Primary Hypertensive chronic kidney disease with 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 (HCC) Type 2 diabetes mellitus with hemoglobin A1c goal of less than or equal to 9.0% (HCC) Advanced care planning/counseling discussion- Primary Other specified counseling Coronary artery disease of [place] artery of [place] heart with stable angina pectoris (HCC) HTN, [...] infarction affecting left non- dominant side (HCC) HTN, goal below 140/90- Primary Unspecified essential hypertension 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 No * Full Code Date Activated Date [...] Power of Attor indira? No Care Teams Planer Feeder Relationship Specialty Start Date End Date Agatha Beach DO [address] [place] [id number] PCP - General Family Medicine 07/02/24 documented as of this encounter
--- OUTSIDE RECORDS SUMMARY | 2024-09-13 02:29 | External Medical Summary | Summary of Care ---
Author Name Unknown Organization [facility] [address] [address] Phone [phone] Care Team Providers Care Collar Turner Name Role Phone Jenny Beach DO Primary Care Provider [phone] Reason for Visit * Reason Comments Medication Refill Encounter Details Date Type Department Care Team (Late st Contact Info) Description 07/06/2024 [facility]ill [facility] [address] [facility] [place] [phone] Jenny Beach DO [address] [facility] [place] [address] Encounter for long-term (current) use of medications*; Hyperlipidemia with target LDL less than 70; Dyslipidemia, goal LDL below 70 Allergies Active Allergy Reactions Criticality Noted Date Comments Egg-Derived Products Diarrhea 12/13/2019 Egg yolks Sulfa Antibiotics Other (Please comment) 2023 Upset stomach documented as of this encounter (statuses as of 07/10/2024) Medications Cholecalciferol 1000 UNITS Capsule Take 1 [...] EXIT SITE DAILY 024 Active Droplet Pen Sasabe 32G X 4 MM (Insulin Pen Needle)Indicati ons:Type 2 diabetes mellitus with hemoglobin A1c goal of less than or equal to 9.0% ([facility]) use three times a day 300 Each 3 024 Active Nitroglycerin 0.4 MG Sublingual Tablet Sublingual (Nitrostat)Delia cations:Coronar y artery disease of upper si[place] artery of upper [place] heart with stable angina pectoris ([facility]) Place 1 Tablet under the tongue every 5 minutes as needed for chest Pain. 75 Tablet 4 06/10/19 25 6:43 AM EST 024 Active Insulin Glargine [...] TABLET BY MOUTH EVERY DAY 90 Tablet 025 Active Ezetimibe 10 MG Oral Tablet (Zetia)Indicati ons:Dyslipidemi a, goal LDL below 70 TAKE ONE TABLET BY MOUTH EVERY MORNING 90 Tablet 025 Active Atorvastatin Calcium 80 MG Oral Tablet (Lipitor)Indica tions:Hyperlipi demia with target LDL less than 70 TAKE ONE TABLET BY MOUTH EVERY DAY 90 Tablet 3 04/09/20 24 12:05 PM EST 024 2024 Discontinued(R efill) Ezetimibe 10 MG Oral Tablet (Zetia)Indicati ons:Dyslipidemi a, goal LDL below 70 TAKE ONE TABLET BY MOUTH EVERY MORNING 90 Tablet 3 04/09/20 24 12:05 PM EST 024 2024 Discontinued(R efill) Carvedilol 12.5 MG Oral Tablet (Coreg)Indicati ons:Coronary artery disease of upper [place] artery of upper [place] heart with stable angina pectoris (HCC),HTN, goal below 140/90,Hyperten sive heart and renal disease, 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 180 Tablet 3 024 2024 Discontinued Isosorbide Mononitrate ER 60 MG Oral Tablet Extended Release 24 Hour (Imdur) Take 1.5 Tablets by mouth in the morning. 135 Tablet 3 024 2024 Discontinued(R efill) Clopidogrel Bisulfate 75 MG Oral Tablet (pLAVix)Indicat ions:Right-side d lacunar infarction (HCC) Take 1 Tablet by mouth in the morning. In the morning.. 90 Tablet 2 025 2024 Discontinued documented as of this encounter (statuses as of 07/10/2024) Active Problems Problem Noted Date Diagnosed Date Angina, class III 06/21/2024 Aortic ectasia, abdominal 10/11/2023 Coronary artery disease of n ative artery of upper sioux heart with stable angina pectoris 07/07/2023 Overview [...] locally Recent cardiac cath and stent at [facility] [place] Plavix d/c and started brllinta Coreg and imdur increased Denies any chest pain since recent cath and stent Aware of ongoing diffuse CAD, not a candidate for CABG Met with CT surgery, not interested in aggressive surgery Assessment & Plan (02/20/2024 9:03 AM EDT): Continue cardiology f/u Recently had stents placed at [facility] Assessment & Plan (08/02/2023 12:43 PM EDT): [...] protocol Chronic kidney disease, stage 4 (severe) Overview: Per CKD protocol Type 2 diabetes [...] as of this encounter (statuses as of 07/10/2024) Resolved Problems Problem Noted Date Diagnosed Date [...] as of this encounter (statuses as of 07/10/2024) Immunizations Name Administration Dates Next Due COVID-19 mRNA, LNP-s, No Pre serve, 2-Dose Series ([employer]) 08/03/2020,06/28/2020 COVID-19, mRNA, LNP-s, PF, B ooster, 100mcg/0.5mg ([employer]) 09/16/2021,04/06/2021 Covid-19, Mrna, Lnp-s, Pf, B ivalent, 30 Mcg, IM, 12 yrs and above ([employer]) 05/19/2022 Hepatitis B, 20+ yrs 04/24/2017,11/16/2016,10/06 Pneumococcal [...] 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 Patient was notified. Successfully contacted patient and provided [facility] message. * Telephone Encounter - Leonel Diane [facility] - 07/06/2024 4:08 PM ESTSigned Prescriptions: Disp Refills Atorvastatin Calcium 80 MG Oral Tablet (Li*90 Tab*0 Sig: TAKE ONE TABLET BY MOUTH EVERY DAY Authorizing Provider: JENNY BEACH Ordering User: LEONEL DIANE Ezetimibe 10 MG Oral Tablet (Zetia) 90 Tab*0 Sig: TAKE ONE TABLET BY MOUTH EVERY MORNING Authorizing Provider: JENNY BEACH Ordering User: LEONEL DIANE * Telephone Encounter - Leonel Diane [facility] - 07/06/2024 4:08 PM EST Provided 90 days supply with 0 refill(s) until upcoming appointment. Per refill protocol patient should have lipid panel on file within past year. Reviewed : AMP report Care Gaps/Health Maintenance medications list for any routine labs typically ordered for this patient. Lab orders placed. Please contact patient to advise of labs ordered for blood draw. Recommend patient to fast if able for labs. Patient may still have water and regular medications. Advise to obtain labs before his scheduled office visit 07/11/2024. Thanks, Leonel Diane, PharmD Clinical Pharmacist [facility] [phone] 07/06/2024 4:08 PM * Telephone Encounter - Transfer User, Rx Adt - 07/06/2024 12:17 AM ESTPending Prescriptions: Disp Refills Atorvastatin Calcium 80 MG Oral Tablet (Li*90 Tab*3 Sig: TAKE ONE TABLET BY MOUTH EVERY DAY Ezetimibe 10 MG Oral Tablet (Zetia) 90 Tab*3 Sig: TAKE ONE TABLET BY MOUTH EVERY MORNING documented in this encounter Plan of Treatment Upcoming Encounters Date Type Department Care Team (Latest Contact Info) Description 07/11/2024 9:30 AM EST Office [facility] [address] [facility] [place] [phone] Jenny Beach DO [address] [place] [address] 07/23/2024 11:00 AM EST Office Visit Cardiology, [facility] [address] [address] Emeka Sheets MD [address] [place] [address] 07/29/2024 3:30 PM EDT Home Visit [facility] [address] [address] Yeni Kent, RN [address] [address] 09/24/2024 3:00 PM EDT Home Visit [facility] [place] [address] [address] Barron Gallo PA-C [address] [place] [address] 10/22/2024 11:23 AM EDT Hospital Encounter OR [facility], Operating Room, [facility] - 4th Floor [address] [place] [phone] Laura Kelly, DO [address] [place] [address] 10/22/2024 11:23 AM EDT - 10/22/2024 12:03 PM EDT Surgery OR [facility], Operating Room, [facility] - 4th Floor [address] [place] [phone] Laura Kelly, DO [address] [place] [address] COLONOSCOPY FLEXIBLE PROXIMAL DIAGNOSTIC 11/18/2024 11:30 AM EDT Imaging Radiology [facility] [address] [place] [phone] 11/19/2024 11:30 AM EDT Office Visit [facility], [facility] [address] [facility] [place] [phone] [place] [address] 11/25/2024 10:45 AM EDT Telemedicine Urology Lori Doshi [address] [place] [address] Zeferino Bah Jr., MD [address] [address] Scheduled Orders Name Type Priority Associated Diagnoses Orde r Schedule LIPID PANEL WITH DIRECT LDL IF TG IS HIGH Lab Routine Dyslipidemia, goal LDL below 70 Encounter for long-term (current) use of medications Expected: 07/06/2024 (Approximate), Expires: 07/06/2025 Scheduled Procedures Name Priority Associated Diagnoses Date/Ti [...] Visit Diagnoses Diagnosis Coronary artery disease of upper [place] artery of upper si[place] heart with stable angina pectoris (HCC)- Primary Hypertensive chronic kidney disease with 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 (HCC) Type 2 diabetes mellitus with hemoglobin A1c goal of less than or equal to 9.0% (HCC) 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) Advanced care planning/counseling discussion Other specified counseling Coronary artery disease of upper [place] artery of upper [place] heart with stable angina pectoris (HCC)- Primary Hypertensive chronic kidney disease with 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 (HCC) Type 2 diabetes mellitus with hemoglobin A1c goal of less than or equal to 9.0% (HCC) Encounter for long-term (current) use of medications- Primary Encounter for long-term (current) use of other medications Hyperlipidemia with target LDL less than 70 Other and unspecified hyperlipidemia Dyslipidemia, goal LDL below 70 Other and unspecified hyperlipidemia Advanced care planning/counseling discussion- Primary Other specified counseling Coronary artery disease of upper [place] artery of upper [place] heart with stable angina pectoris (HCC) HTN, [...] infarction affecting left non- dominant side (HCC) Screen for colon cancer Special screening [...] the patient have Health Care Power of Fire Department Marine Engineer? No * Full Code Date Activated Date [...] Power of Attor indira? No Care Teams Collar Turner Relationship Specialty Start Date End Date Jenny Beach DO [address] [address] PCP - General Family Medicine 07/02/24 documented as of this encounter
--- OUTSIDE RECORDS SUMMARY | 2024-09-13 02:29 | External Medical Summary | Summary of Care ---
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); HTN, goal below 140/90; Hypertensive heart and renal disease, 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, with heart failure (HCC); Diabetes mellitus with nephropathy (HCC); Dyslipidemia, goal LDL below 70; Pancreatic lesion; 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-dominant side (HCC) Allergies Active Allergy Reactions Criticality Noted [...] EXIT SITE DAILY 024 Active Droplet Pen [place] 32G X 4 MM (Insulin Pen Needle)Indicati ons:Type 2 diabetes mellitus with hemoglobin A1c goal of less than or equal to 9.0% ([facility]) use three times a day 300 Each 3 024 Active Nitroglycerin 0.4 MG Sublingual Tablet Sublingual (Nitrostat)Delia cations:Coronar y artery disease of kotlik artery of kotlik heart with stable angina pectoris ([facility]) Place 1 Tablet under the [...] TABLET BY MOUTH EVERY MORNING 90 Tablet Active Auryxia 1 GM 210 MG(Fe) Oral Tablet (Ferric Citrate) 2 tablets 3 times daily with meals and 1 tablet 2 times daily with snacks Active Brilinta 90 MG Oral Tablet (Ticagrelor) Take 1 Tablet by mouth in the morning and 1 Tablet before bedtime. Active Isosorbide Mononitrate ER 120 MG Oral Tablet Extended Release 24 Hour (Imdur) Take 1 Tablet by mouth in the morning. 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),HTN, goal [...] artery disease of n ative artery of kotlik heart with stable angina pectoris 07/07/2023 Overview [...] locally Recent cardiac cath and stent at [facility] Plavix d/c and started brllinta Coreg and imdur increased Denies any chest pain since recent cath and stent Aware of ongoing diffuse CAD, not a candidate for CABG Met with CT surgery, not interested in aggressive surgery Assessment & Plan (02/20/2024 9:03 AM EDT): Continue cardiology f/u Recently had stents placed at [facility] Assessment & Plan (08/02/2023 12:43 PM [...] Intensity Statin Aspirin Additional Comments Has elis CGThompson History of hyperaldosteronism 04/10/2014 Dyslipidemia, goal LDL [...] 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, with heart failure (HCC) Current CKD Stage: ESRD on dialysis "RED FLAG" symptoms: NO IDENTIFIED SYMPTOMS CKD Complications: CAD HTN Additional Comments Continues home peritoneal dialysis Diabetes mellitus with nephropathy (HCC) Hemoglobin AIC Results: Lab Results Component Value Date/Time HEMOGLOBIN A1C - [facility] 6.4 (H) 02/01/2024 10:50 AM HEMOGLOBIN A1C - [facility] 7.1 (H) 07/08/2023 05:28 AM HEMOGLOBIN A1C - [facility] 6.4 (H) 04/03/2023 02:59 PM HEMOGLOBIN A1C - [facility] 8.7 (H) 04/23/2020 08:30 AM HEMOGLOBIN A1C - [facility] 8.7 (H) 01/22/2020 10:04 AM HEMOGLOBIN A1C - [facility] 8.2 (H) 10/17/2019 11:15 AM Dyslipidemia, goal LDL below 70 Continue statin Pancreatic lesion Per previous imaging 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) Minimal Ambulates with walker Advanced care planning/counseling discussion Additional Medical Decision Making: Lives with spouse Manages own medications Home Peritoneal dialysis overnight with help from spouse Continues to work some, but only from home at this point Ambulating with walker today Overall feeling better since cath, no chest pain Ongoing goals of care discussion Severe CAD, high risk for MD Scheduled appointments in the next 60 days: Future Appointments-next 60 days Date/Time Provider Specialty Dept Phone 07/09/2024 3:00 PM Barron Gallo PA-C [facility] [phone] 07/11/2024 9:30 AM (Arrive by 9:15 AM) Agatha Beach, DO Family Medicine [phone] 07/23/2024 11:00 AM (Arrive by 10:45 AM) Emeka Sheets MD Cardiology [phone] 07/29/2024 3:30 PM Yeni Kent RN [facility] [phone] 11/18/2024 11:30 AM (Arrive by 11:15 AM) [address] Radiology [phone] 11/19/2024 11:[address] [facility] [phone] 11/25/2024 10:45 AM Zeferino Bah Jr., MD Urology Arrive at: Patient's Home [phone] A total of 40 minutes was spent face to face (via video-based telemedicine if designated as a telemedicine visit) Subjective Subjective Is this a Telemedicine Visit? No, this is an Home Visit. Reason For [facility] Visit: Follow-Up Current Concerns: Paramjit Limon is a 74 year old male seen today for a [facility] provider visit. PMH includes ESRD on dialysis, CAD, HTN, dyslipidemia, DM2, JACOB, aortic stenosis, h/o CVA 12/30-01/02/24 - [facility] - had coronary stents placed 06/30-07/03/24 - [facility] - planned heart cath, stent placed to circumflex Today's concerns are: Denies concerns Recent cath and stent placed as above, also reports 2 previous stents were cleaned out as well Since returning home, denies any recurrent angina Prior to cath/stenting, was using nitro 3-5 times daily Has been taking it easy since returning home Denies any SOB or PACE Does have ongoing fatigue, relates this to beta joanne dose Recent cardiac stents placed as above Feels like he is doing ok Has not noticed much changes overall Maybe slight improvement in fatigue, states his has noticed he is doing better Med changes during admission include d/c plavix, adding brillinta, increased coreg, and increased isosorbide Continues on home peritoneal dialysis, denies issues Additional Current Outpatient Medications Medication Sig Dispense Refill Auryxia 1 GM 210 MG(Fe) Oral Tablet [...] the morning and 1 Tablet before bedtime. Cholecalciferol 1000 UNITS Capsule Take 1 Capsule [...] PUT ON EXIT SITE DAILY Droplet Pen [place] 32G X 4 MM (Insulin Pen Needle) [...] BY MOUTH EVERY MORNING 90 Tablet 0 No current facility-administered medications for this visit. [...] Gay CRNA 5 mg at 04/17/12 0935 I have reviewed the following results: CBC and BMP Lab Results Component Value Date/Time LEFT VENTRICULAR EJECTION FRACTION 46 04/04/2024 01:22 PM Objective Objective Vitals: 07/08/24 1329 Pulse: 70 SpO2: 97% BP: 116/78 Last Weights: Wt Readings from Last 3 Encounters: 06/21/24 114.8 kg (253 lb) 05/17/24 113.6 kg (250 lb 8 oz) 05/08/24 114.5 kg (252 lb 8 oz) Last BPs: BP Readings from Last 4 Encounters: 07/08/24 116/78 06/21/24 148/92 06/10/24 130/64 05/17/24 132/92 General: alert and no distress Neuro: alert & oriented x 3 with fluent speech Heart: regular rate & rhythm, +murmur Lungs: lungs clear to auscultation, no wheeze, no rales, no rhonchi Abdomen: abdomen soft, non-tender, obese, and normal bowel sounds Ext: no significant edema documented in this encounter Miscellaneous Notes * Assessment & Plan Note - Barron Gallo PA-C - 07/09/2024 6:00 PM EST Associated Problem(s): Diabetes mellitus with nephropathy (HCC) Hemoglobin AIC Results: Lab Results Component Value Date/Time HEMOGLOBIN A1C - [facility] 6.4 (H) 02/01/2024 10:50 AM HEMOGLOBIN A1C - [facility] 7.1 (H) 07/08/2023 05:28 AM HEMOGLOBIN A1C - [facility] 6.4 (H) 04/03/2023 02:59 PM HEMOGLOBIN A1C - [facility] 8.7 (H) 04/23/2020 08:30 AM HEMOGLOBIN A1C - [facility] 8.7 (H) 01/22/2020 10:04 AM HEMOGLOBIN A1C - [facility] 8.2 (H) 10/17/2019 11:15 AM * Assessment & Plan Note - Barron Gallo PA-C - 07/09/2024 6:00 PM EST Associated Problem(s): Dyslipidemia, goal LDL below 70 Continue statin * Assessment & Plan Note - Barron Gallo PA-C - 07/09/2024 6:00 PM EST Associated Problem(s): Pancreatic lesion Per previous imaging * Assessment & Plan Note - Barron Gallo PA-C - 07/09/2024 6:00 PM EST Associated Problem(s): 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-dominant side (HCC) Minimal Ambulates with walker * Assessment & Plan Note - Barron Gallo PA-C - 07/09/2024 6:00 PM EST Associated Problem(s): 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) Following with cardiology locally Recent cardiac cath and stent at [facility] Plavix d/c and started brllinta Coreg and imdur increased Denies any chest pain since recent cath and stent Aware of ongoing diffuse CAD, not a candidate for CABG Met with CT surgery, not interested in aggressive surgery * Assessment & Plan Note - Barron Gallo PA-C - 07/09/2024 6:00 PM EST Associated Problem(s): HTN, goal below 140/90 At goal * Assessment & Plan Note - Barron Gallo PA-C - 07/09/2024 6:00 PM EST Associated Problem(s): Hypertensive heart and renal disease, 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 Location: Home Individual(s) present for conversation: Patient and Spouse Decisions (Aligning Care with What Matters Most): Most Recent Choice Selection Comments CPR Perform CPR if Needed (07/09/2024 5:43 PM) Intubation Intubate if Needed (07/09/2024 5:43 PM) Non-Invasive Ventilation Antibiotics Give Antibiotics if Needed (07/09/2024 5:43 PM) Artificial Nutrition IV Hydration Provide IV Hydration if Needed (07/09/2024 5:43 PM) Chemotherapy Radiation Therapy Surgical Procedure Blood Transfusions Lab Draws Draw Blood if Needed (07/09/2024 5:43 PM) Hospice Does Not Want Hospice Yet (07/09/2024 5:43 PM) Going to Hospital / ER Dying at Home Dialysis Patient chooses Dialysis (08/02/2023 1:00 PM) Overall Comments working with sack cleaner on living will and estate planning (08/02/2023 1:00 PM) Source: Content from [employer] [facility] Discussion and Background (Discerning What Matters Most): The Patient's Current Experience and Understanding of their Illness: "i have alot of calcifications and they have no where to do a bypass" (07/09/2024 5:37 PM) Their Past Experience with Healthcare or Illness: Their Understanding of Prognosis and their Anticipated Course: Their Fears and Worries about the Future: symptoms such as chest pain, fatigue and sob (07/09/2024 5:37 PM) Their Hopes for the Future: would like to be able to travel again to see family (07/09/2024 5:37 PM) Important Spiritual or Cultural Elements for them: Additional Important Elements: Source: Content from [employer] [facility] Documents Reviewed: POLST discussion Ongoing (07/09/2024 5:43 PM) AD Not Available, SDM Identified (07/09/2024 5:43 PM) Materials Shared with Patient and Family: 10 minutes spent in direct [id number] discussion yan, Barron Gallo PA-C documented in this encounter Plan of Treatment Upcoming Encounters Date Type Department Care Team (Latest Contact Info) Description 07/11/2024 9:30 AM EST Office Visit М[facility] Arguello [address] [place] [phone] Agatha Beach DO [address] [place] [address] 07/23/2024 11:00 AM EST Office Visit Cardiology, [facility] [address] [place] [address] Emeka Sheets MD [address] [place] [address] 07/29/2024 3:30 PM EDT [facility] Visit [facility], [facility] [address] [place] [address] Yeni Kent, RN [address] [place] [address] 09/24/2024 3:00 PM EDT Home Visit [facility], [facility] [address] [place] [address] Barron Gallo PA-C [address] [place] [address] 10/22/2024 11:23 AM EDT Hospital Encounter OR [facility], Operating Room, [facility] - 4th Floor [address] [place] [phone] Laura Kelly, DO [address] [place] [address] 10/22/2024 11:23 AM EDT - 10/22/2024 12:03 PM EDT Surgery OR [facility], Operating Room, [facility] - 4th Floor [address] [place] [phone] Laura Kelly, DO [address] [place] [address] COLONOSCOPY FLEXIBLE PROXIMAL DIAGNOSTIC 11/18/2024 11:30 AM EDT Imaging Radiology [facility] [address] [place] [phone] 11/19/2024 11:30 AM EDT Office Visit Pharmacy, [address] [place] [phone] [facility] [address] [facility] [place] [address] 11/25/2024 10:45 AM EDT Telemedicine Urology Lori Doshi [address] [place] [address] Zeferino Bah Jr., MD [address] [place] [address] Scheduled Procedures Name Priority Associated Diagnoses Date/Ti [...] Visit Diagnoses Diagnosis 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)- Primary Hypertensive chronic kidney disease with 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 (HCC) Type 2 diabetes mellitus with hemoglobin A1c goal of less than or equal to 9.0% (HCC) 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) Advanced care planning/counseling discussion Other specified counseling 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)- Primary Hypertensive chronic kidney disease with 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 (HCC) Type 2 diabetes mellitus with hemoglobin A1c goal of less than or equal to 9.0% (HCC) Advanced care planning/counseling discussion- Primary Other specified counseling 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 No * Full Code Date Activated Date [...] Power of Attor indira? No Care Teams Contact Center Assistant Relationship Specialty Start Date End Date Agatha Beach DO [address] [place] [address] PCP - General Family Medicine 07/02/24 documented as of this encounter
--- OUTSIDE RECORDS SUMMARY | 2024-09-13 02:29 | External Medical Summary | Summary of Care ---
Author Name Unknown Organization [facility] Address [address] [place] [address] Phone [phone] Care Team Providers Care Culinary Intern Name Role Phone Agatha Beach Primary Care Provider [phone] Encounter Details Date Type Department Care Team (Late st Contact Info) Description 07/02/2024 Population Health External Data Unspecified Department Allergies Active Allergy Reactions Criticality Noted Date Comments Egg-Derived Products Diarrhea 12/13/2019 Egg yolks Sulfa Antibiotics Other (Please comment) 2023 Upset stomach documented as of this encounter (statuses as of 07/03/2024) Medications Cholecalciferol 1000 UNITS Capsule Take 1 [...] 07/11/2023 3:10 PM EST 07/11/19 24 Active Atorvastatin Calcium 80 MG Oral Tablet (Lipitor)Indicat ions:Hyperlipide sudhir with target LDL less than 70 TAKE ONE TABLET BY MOUTH EVERY DAY 90 Tablet 3 04/09/2024 12:05 PM EST 07/17/19 24 025 Active Ezetimibe 10 MG Oral Tablet (Zetia)Indicatio ns:Dyslipidemia, goal LDL below 70 TAKE ONE TABLET BY MOUTH EVERY MORNING 90 Tablet 3 04/09/2024 12:05 PM EST 07/17/19 24 025 Active Gentamicin Sulfate 0.1 % External Cream PUT ON EXIT SITE DAILY 09/05/19 24 Active Droplet Pen [place] 32G X 4 MM (Insulin Pen Needle)Indicatio ns:Type 2 diabetes mellitus with hemoglobin A1c goal of less than or equal to 9.0% (HCC) use three times a day 300 Each 3 10/18/19 Active Carvedilol 12.5 MG Oral Tablet (Coreg)Indicatio ns:Coronary artery disease of [place]osh[place]bann[place] artery of shoshone[place]bannock heart with stable angina pectoris (HCC),HTN, goal below 140/90,Hypertens sarmad heart and renal disease, 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 180 Tablet 3 11/02/19 24 Active Additional Information Patient taking differently: 6.25 mgOral BID (.AM/PM), Reported on 06/21/2024 Nitroglycerin 0.4 MG Sublingual Tablet Sublingual (Nitrostat)Indic ations:Coronary artery disease of shoshone-bannock artery of shoshone-bannock heart with stable angina pectoris (HCC) Place 1 Tablet under the tongue every 5 minutes as needed for chest Pain. 75 Tablet 4 06/10/2024 6:43 AM EST 11/20/19 Active Insulin Glargine Solostar 100 UNIT/ML Subcutaneous Solution Pen-injector (Lantus SoloStar) Inject 12 Units under the skin in the morning. 15 mL 1 03/19/2024 4:30 PM EDT 03/19/20 Active Isosorbide Mononitrate ER 60 MG Oral Tablet Extended Release 24 Hour (Imdur) Take 1.5 Tablets by mouth in the morning. 135 Tablet 3 04/30/20 Active FreeStyle Elis 3 Sensor Use as directed every 14 days. Supplied by home care delivered Active Clopidogrel Bisulfate 75 MG Oral Tablet (pLAVix)Indicati ons:Right-sided lacunar infarction (HCC) Take 1 Tablet by mouth in the morning. In the morning.. 90 Tablet 2 05/31/19 25 Active Ozempic (2 MG/DOSE) 8 MG/3ML Subcutaneous Solution Pen-injector (Semaglutide (2 MG/DOSE)) Inject 2 mg under the skin once a week. 9 mL 1 06/10/2024 7:30 AM EST 06/04/19 25 Active documented as of this encounter (statuses as of 07/03/2024) Active Problems Problem Noted Date Diagnosed Date Angina, class III 06/21/2024 Aortic ectasia, abdominal 10/11/2023 Coronary artery disease of n ative artery of shoshone-bannock heart with stable angina pectoris 07/07/2023 Overview [...] to the left circumflex Assessment & Plan (02/20/2024 9:03 AM EDT): Continue cardiology f/u Recently had stents placed at [facility] Assessment & Plan (08/02/2023 12:43 PM EDT): [...] left non-dominant side 06/23/2023 Assessment & Plan (08/02/2023 12:44 PM EDT): Mild deficit Hypertensive heart and renal disease, 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, with heart failure 06/23/2023 ESRD (end stage renal disease) 02/02/2023 Pancreatic lesion 07/27/2022 Hypertensive kidney disease with chronic kidney disease stage IV 11/30/2020 Overview: Per CKD protocol Chronic kidney disease, stage 4 (severe) 021 Overview: Per CKD protocol Type 2 diabetes mellitus wit h stage 4 chronic kidney disease, with long-term current use of insulin 11/30/2020 Overview: Per CKD protocol Carotid artery aneurysm 04/25/2019 Carotid artery dissection 04/25/2019 Diabetes mellitus with nephropathy 01/18/2019 Ptosis of eyelid 07/13/2016 Type 2 diabetes [...] Overview (09/21/2015): ICD-10 update of inactive term JACOB (obstructive sleep apnea) 05/18/2012 Overview (07/18/2017): BIPAP 04/26, suboptimal d/t intolerance [facility] HTN, goal below 140/90 04/23/2012 Gout documented as of this encounter (statuses as of 07/03/2024) Resolved Problems Problem Noted Date Diagnosed Date [...] as of this encounter (statuses as of 07/03/2024) Immunizations Name Administration Dates Next Due COVID-19 [...] 02/09/2024 Transportation Needs Answer Date Record ed READ ONLY Do you have troubl e getting a ride to medical visits or work? Never True 02/09/2024 Does your family have a hard [...] place to sleep at night? No 02/09/2024 READ ONLY Do you think you a re at risk of becoming homeless? 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 on file Not on karyn e documented as of this encounter Plan of Treatment Upcoming Encounters Date Type Department Care Team (Latest Contact Info) Description 07/09/2024 3:00 PM EST [facility] Visit [facility] [address] [address] Barron Gallo PA-C [address] [place] [address] 07/11/2024 9:30 AM EST Office Visit Family Марина Fuchs [address] [phone] Agatha Beach, DO [address] [place] [address] 07/23/2024 11:00 AM EST Office Visit Cardiology, [facility] [address] [place] [address] Emeka Sheets MD [address] [place] [address] 07/29/2024 3:30 PM EDT [facility] [place], [facility] [address] [place] [address] Yeni Kent RN [address] [place] [address] 10/22/2024 11:23 AM EDT Hospital Encounter OR [facility], Operating Room, [facility] - 4th Floor [address] [facility] [place] [phone] Laura Kelly, DO [address] [place] [address] 10/22/2024 11:23 AM EDT - 10/22/2024 12:03 PM EDT Surgery OR [facility], Operating Room, [facility] - 4th Floor [address] [facility] [place] [phone] Laura Kelly, DO [address] [place] [address] COLONOSCOPY FLEXIBLE PROXIMAL DIAGNOSTIC 11/18/2024 11:30 AM EDT Imaging Radiology [facility] [address] [place] [phone] 11/19/2024 11:30 AM EDT Office Visit Pharmacy, Марина Silva [address] [phone] М[facility] [address] [facility] [place] [address] 11/25/2024 10:45 AM EDT Telemedicine Urology Lori Doshi [address] [place] [address] Niurka Dorado, Zeferino Candelaria MD [address] [place] [address] Scheduled Procedures Name Priority Associated Diagnoses Date/Ti [...] the patient have Health Care Power of Database Designer? No * Full Code Date Activated Date [...] Power of Attor indira? No Care Teams Culinary Intern Relationship Specialty Start Date End Date Agatha Beach DO [address] [address] PCP - General Family Medicine 07/02/24 documented as of this encounter
--- OUTSIDE RECORDS SUMMARY | 2024-09-13 02:29 | External Medical Summary | Summary of Care ---
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 MAX OF 8 CAPS/DAY 240 Capsule Active Aspirin 81 MG Oral Tablet Chewable Chew & swallow 1 Tablet by mouth every morning. 30 Tablet 11 4 3:10 PM EST Active Atorvastatin Calcium 80 MG Oral Tablet (Lipitor)Indica tions:Hyperlipi demia with target LDL less than 70 TAKE ONE TABLET BY MOUTH EVERY DAY 90 Tablet 3 4 12:05 PM EST 024 2024 Active Ezetimibe 10 MG Oral Tablet (Zetia)Indicati ons:Dyslipidemi a, goal LDL below 70 TAKE ONE TABLET BY MOUTH EVERY MORNING 90 Tablet 3 4 12:05 PM EST 024 2024 Active Gentamicin Sulfate 0.1 % External Cream PUT ON EXIT SITE DAILY Active Droplet [place] 32G X 4 MM (Insulin Pen Needle)Indicati ons:Type 2 diabetes mellitus with hemoglobin A1c goal of less than or equal to 9.0% (HCC) use three times a day 300 Each 3 Active Carvedilol 12.5 MG Oral Tablet (Coreg)Indicati ons: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 180 Tablet 3 024 Active Additional Information Patient taking differently: 6.25 mgOral BID (.AM/PM), Reported on 06/21/2024 Nitroglycerin 0.4 MG Sublingual Tablet Sublingual (Nitrostat)Delia cations:Coronar y artery disease of nondalton artery of nondalton heart with stable angina pectoris (HCC) Place 1 Tablet under the tongue every 5 minutes as needed for chest Pain. 75 Tablet 4 5 6:43 AM EST 07/01/2 024 Active Insulin Glargine Solostar 100 UNIT/ML Subcutaneous Solution Pen-injector (Lantus SoloStar) Inject 12 Units under the skin in the morning. 15 mL 1 4 4:30 PM EDT 024 Active Isosorbide Mononitrate ER 60 MG Oral Tablet Extended Release 24 Hour (Imdur) Take 1.5 Tablets by mouth in the morning. 135 Tablet 3 024 Active FreeStyle Elis 3 Sensor Use as directed every 14 days. Supplied by home care delivered Active Clopidogrel Bisulfate 75 MG Oral Tablet (pLAVix)Indicat ions:Right-side d lacunar infarction (HCC) Take 1 Tablet by mouth in the morning. In the morning.. 90 Tablet 2 025 Active Ozempic (2 MG/DOSE) 8 MG/3ML Subcutaneous Solution Pen-injector (Semaglutide (2 MG/DOSE)) Inject 2 mg under the skin once a week. 9 mL 1 5 7:30 AM EST 025 Active Amoxicillin-Pot Clavulanate 875-125 MG Oral Tablet (Augmentin)Delia cations:Abrasio n, leg w/ infection, left, initial encounter Take 1 Tablet by mouth in the morning and 1 Tablet before bedtime. Do all this for 10 days. 20 Tablet 024 2024 Discontinued documented as of this encounter (statuses as of 06/22/2024) Active Problems Problem Noted Date Diagnosed Date [...] cardiology f/u Recently had stents placed at [facility] Assessment & Plan (08/02/2023 12:43 PM [...] as of this encounter (statuses as of 06/22/2024) Resolved Problems Problem Noted Date Diagnosed Date [...] as of this encounter (statuses as of 06/22/2024) Immunizations Name Administration Dates Next Due COVID-19 mRNA, LNP-s, No Pre serve, 2-Dose Series (Moderna) 08/03/2020,06/28/2020 COVID-19, mRNA, LNP-s, PF, B ooster, 100mcg/0.5mg (Moderna) 09/16/2021,04/06/2021 Covid-19, Mrna, Lnp-s, Pf, B ivalent, 30 Mcg, IM, 12 yrs and above (Framed Data) 05/19/2022 Hepatitis B, 20+ yrs 04/24/2017,11/16/2016,10/06 Pneumococcal [...] ages 0-17 years) Not on file 02/09/2024 Sex and Gender Information Value Date Recorded Sex Assigned at Male 09/28/2018 9:39 AM EDT Legal Sex Male 5:58 AM EST Gender Identity Male 09/28/2018 9:39 AM EDT Sexual Orientation Straight 09/28/2018 9: 39 AM EDT 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 Not on file Not on karyn e documented as of this encounter Last Filed Vital Signs Vital Sign Reading Time Taken Comments Blood Pressure 148/92 06/21/2024 3:59 PM EST Pulse 76 06/21/2024 3:59 PM EST Temperature - - Respiratory Rate 18 06/21/2024 3:59 PM EST Oxygen Saturation - - Inhaled Oxygen Concentration - - Weight 114.8 kg (253 lb) 06/21/2024 3:59 PM EST Height - - Body Mass Index 35.29 05/17/2024 1:11 PM EST documented in this encounter Progress Notes * Emeka Sheets MD - 06/21/2024 4:00 PM EST June 21, 2024 Cardiology Follow Up Referring Provider: PCP: JENNY BEACH [address] [place] [address] [id number] Chief Complaint: Coronary artery disease with angina pectoris SUBJECTIVE: Paramjit Limon is a 74 year old year old male with ongoing cardiac issues Multivessel coronary disease status post cardiac catheterization following abnormal stress testing performed as part of pre transplant evaluation, grade 2 3 angina pectoris Coronary angiogram: Coronary disease - hemodynamically significant Left main [...] issues; Left groin hematoma post cath, resolved Hypertension Dyslipidemia Elevated BMI Diabetes, type 2 [...] coronary artery disease who presents for follow-up regarding his upcoming heart catheterization. He is scheduled for a heart catheterization on July 01 in [place] to address a chronic occlusionand evaluate other vessels.. He has an anomalous origin of the right coronary artery. He continues to experience angina and uses nitroglycerin frequently, approximately two to three times a day, which effectively alleviates his chest pain. He anticipates the onset of pain and takes nitroglycerin preemptively, especially when exposed to cold weather, which exacerbates his symptoms. He is currently on a regimen of 90 mg of isosorbide twice daily, which he sometimes takes at intervals shorter than 12 hours, finding that it improves his sleep and overall symptom control. He is undergoing dialysis with four dwell times per night, each lasting an hour and a half, and reports good ultrafiltration results, with a recent output of nearly 2000 mL. He notes a significant improvement in his fluid management since starting this regimen. He weighs himself daily, with recent weights around 247- 253 pounds, accounting for clothing differences. He has noticed a reduction in leg swelling and maintains a stable weight. His blood pressure is well-controlled, with readings typically around 110/65 mmHg, though occasionally it is higher. He monitors his blood pressure daily and reports consistent readings. A Complete Review of Systems is as stated above or negative. 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 30 Tablet 11 Atorvastatin Calcium 80 MG Oral Tablet (Lipitor) TAKE ONE TABLET BY MOUTH EVERY DAY 90 Tablet 3 Ezetimibe 10 MG Oral Tablet (Zetia) TAKE ONE TABLET BY MOUTH EVERY MORNING 90 Tablet 3 Carvedilol 12.5 MG Oral Tablet (Coreg) Take 1 Tablet by mouth in the morning and 1 Tablet before bedtime. (Patient taking differently: Take 0.5 Tablets by mouth in the morning and 0.5 Tablets before bedtime.) 180 Tablet 3 Nitroglycerin 0.4 MG Sublingual Tablet Sublingual (Nitrostat) Place 1 Tablet under the tongue every5 minutes as needed for chest Pain. 75 Tablet 4 Insulin Glargine Solostar 100 UNIT/ML Subcutaneous Solution Pen-injector (Lantus SoloStar) Inject 12 Units under the skin in the morning. 15 mL 1 Isosorbide Mononitrate ER 60 MG Oral Tablet Extended Release 24 Hour (Imdur) Take 1.5 Tablets by mouth in the morning. 135 Tablet 3 Clopidogrel Bisulfate 75 MG Oral Tablet (pLAVix) Take 1 Tablet by mouth in the morning. In the morning.. 90 Tablet 2 Ozempic (2 MG/DOSE) 8 MG/3ML Subcutaneous Solution Pen-injector (Semaglutide (2 MG/DOSE)) Inject 2 mg under the skin once a week. 9 mL 1 Gentamicin Sulfate 0.1 % External Cream PUT ON EXIT SITE DAILY Droplet Pen [place] 32G X 4 MM (Insulin Pen Needle) use three times a day 300 Each 3 FreeStyle Elis 3 Sensor Use as directed every 14 days. Supplied by home care delivered No current facility-administered medications for this visit. Facility-Administered Medications Ordered in Other Visits Medication Dose Route Frequency Provider Last Rate Last Admin midazolam (VERSED) 2 MG/2ML inj Once PRN Gina Gay CRNA propofol (DIPRIVAN) 1 % bolus Once PRN Gina Gay TECHNICAL SPEC 20 mg at 04/17/12 0935 metoprolol tartrate (LOPRESSOR) inj Once PRN Gina Gay, TECHNICAL SPEC 5 mg at 04/17/12 0919 hydrALAZINE (APRESOLINE) inj Once PRN Gina Gay TECHNICAL SPEC 5 mg at 04/17/12 0935 OBJECTIVE/PHYSICAL EXAMINATION: BP 148/92 | Pulse 76 | Resp 18 | Wt 114.8 kg (253 lb) | BMI 35.29 kg/m² | BSA 2.4 m² Repeat blood pressure right arm 128/82 General: Obese, Age appropriate in no acute [...] gait disturbance, no joint inflammation, no deforming arthritis Extremities: no edema, no cyanosis, pulses intact [...] systolic dysfunction now present. Assessment & Plan Severe calcific coronary artery disease status post coronary intervention in the left anterior descending and left circumflex December 2023 Right coronary artery disease versus RESOURCING ADVISOR Scheduled for RESOURCING ADVISOR intervention on 07/01/2024 in [place]. Noted anomalous origin of the right coronary artery. -No changes to current management. Angina Frequent use of nitroglycerin (2-3 times daily) for angina relief. Noted that cold weather exacerbates symptoms. -Continue current management with nitroglycerin as needed. May use prior to exertional activities Isosorbide Mononitrate Currently on 90mg twice daily would shorten the interval to 8 hours between dosing- Hypertension Blood pressure well controlled. -Continue current management. End-Stage Renal Disease on Dialysis Undergoing peritoneum dialysis with good ultrafiltration. -Continue current dialysis regimen. Follow-up Return to clinic in approximately 2 months or sooner if needed post-procedure. DISPOSITION: Routine follow-up 6 weeks time Emeka Sheets MD Cardiology, [facility] [address] [facility] [address] documented in this encounter Nursing Notes * Susu Soto LPN - 06/21/2024 3:58 PM EST Examination Room: 13 Name: Paramjit Limon Date of : 1950 Reason for Visit: followup Problems/Concerns: Cath in [place] Jul 01 Dr. Cruz Interim Hosp(s): denies Chest Pain/SOB: denies MyChart Discussed: ALREADY ACTIVE Patient was instructed to not get up on the exam table until directed and assisted by their provider; patient is to remain seated in the chair/ wheelchair/ exam table for fall prevention and safety reasons. Patient is aware staff will assist stepping down off exam table with personnel. documented in this encounter Plan of Treatment Upcoming Encounters Date Type Department Care Team (Latest Contact Info) Description 07/09/2024 3:[address] PM EST Home Visit [facility] [address] [facility] [place] [address] Barron Gallo PA-C [address] [place] [address] 07/11/2024 9:30 AM EST Office Visit [facility] [place]Note 2[place] [address] [facility], [place] [phone] Jenny Beach DO [address] [facility], [place] [address] 07/15/2024 11:38 AM EST Hospital Encounter OR [facility], Operating Room, [facility] - 4th Floor [address] [place] [address] Andrew Isaac MD [address] [place] [address] 07/15/2024 11:38 AM EST - 07/15/2024 12:34 PM EST Surgery OR [facility], Operating Room, [facility] - 4th Floor [address] [place] [address] Andrew Isaac MD [address] [place] [address] COLONOSCOPY FLEXIBLE PROXIMAL DIAGNOSTIC 07/29/2024 3:30 PM EDT Home Visit [facility] [address] [place] [address] Yeni Kent, RN [address] [place] [address] 07/30/2024 11:00 AM EDT Office Visit Cardiology, [facility] [address] [place] [address] Emeka Sheets MD [address] [place] [address] 11/18/2024 11:30 AM EDT Imaging Radiology [facility] [address] [place] [phone] 11/19/2024 11:30 AM EDT Office Visit [facility] [address] [place] [phone] Марина [facility] [address] [facility] [place] [address] 11/25/2024 10:45 AM EDT Telemedicine Urology Lori Doshi [address] [place] [address] [place] [address] Zeferino Bah Jr., MD [address] [place] [address] Scheduled Procedures Name Priority Associated Diagnoses Date/Ti me COLONOSCOPY FLEXIBLE PROXIMAL DIAGNOSTIC Screen for colon cancer 07/15/2024 11:38 AM EST Health Maintenance Due Date Last Done Comments [...] Visit Diagnoses Diagnosis 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 (HCC)- Primary Hypertensive chronic kidney disease with 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 (HCC) Type 2 diabetes mellitus with hemoglobin A1c goal of less than or equal to 9.0% (HCC) 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) Advanced care planning/counseling discussion Other specified counseling 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 No * Full Code Date Activated [...] Power of Attor indira? No Care Teams Green Energy Marketing Analyst Relationship Specialty Start Date End Date Jenny Beach DO PCP - General Family Medicine 01/25/13 documented as of this encounter
--- OUTSIDE RECORDS SUMMARY | 2024-09-13 02:29 | External Medical Summary | Summary of Care ---
Author Name Unknown Organization [facility] Address [address] [place] [address] Phone [phone] Care Team Providers Care Resident Inspector Name Role Phone Agatha Beach Primary Care Provider [phone] Encounter Details Date Type Department Care Team (Late st Contact Info) Description 07/03/2024 Population Health External Data Unspecified Department Allergies [...] SITE DAILY 09/05/19 24 Active Droplet [place] 32G X 4 MM (Insulin Pen Needle)Indicatio ns:Type 2 diabetes mellitus with hemoglobin A1c goal of less than or equal to 9.0% (HCC) use three times a day 300 Each 3 10/18/19 Active Carvedilol 12.5 MG Oral Tablet (Coreg)Indicatio ns:Coronary artery disease of benton artery of benton heart with stable angina pectoris (HCC),HTN, goal [...] Tablet Sublingual (Nitrostat)Indic ations:Coronary artery disease of benton artery of benton heart with stable angina pectoris (HCC) Place [...] artery disease of n ative artery of benton heart with stable angina pectoris 07/07/2023 Overview [...] cardiology f/u Recently had stents placed at [facility] Assessment & Plan (08/02/2023 12:43 [...] 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 Not on karyn e documented as of this encounter Plan of Treatment Upcoming Encounters Date Type Department Care Team (Latest Contact Info) Description 07/09/2024 3:00 PM EST Home Visit [facility] [address] [place] [address] Barron Gallo PA-C [address] [place] [address] 07/11/2024 9:30 AM EST Office Visit Family Марина Fuchs [address] [place] [phone] Agatha Beach DO [address] [place] [address] 07/15/2024 10:33 AM EST Hospital Encounter OR [facility], Operating Room, [facility] - 4th Floor [address] [place] [address] Andrew Isaac MD [address] [place] [address] 07/15/2024 10:33 AM EST - 07/15/2024 11:29 AM EST Surgery OR [facility], Operating Room, [facility] [place] - 4th Floor [address] [facility] [address] Andrew Isaac MD [address] [place] [address] COLONOSCOPY FLEXIBLE PROXIMAL DIAGNOSTIC 07/23/2024 11:00 AM EST Office Visit Cardiology, [facility] [address] [place] [address] Emeka Sheets MD [address] [place] [address] 07/29/2024 3:30 PM EDT Home Visit [facility] [address] [place] [address] Yeni Kent, RN [address] [place] [address] 11/18/2024 11:30 AM EDT Imaging Radiology [facility] [address] [place] [phone] 11/19/2024 11:30 AM EDT Office Visit Pharmacy, Марина Silva [address] [place] [phone] [facility] [address] [facility] [place] [address] 11/25/2024 10:45 AM EDT Telemedicine Urology Lori Doshi [address] [place] [address] [place] [address] Zeferino Bah Jr., MD [address] [place] [address] Scheduled Procedures Name Priority Associated Diagnoses Date/Ti me COLONOSCOPY FLEXIBLE PROXIMAL DIAGNOSTIC Screen for colon cancer 07/15/2024 10:33 AM EST Health Maintenance Due Date Last [...] the patient have Health Care Power of Scientific Specialist? No * Full Code Date Activated Date [...] Power of Attor indira? No Care Teams Resident Inspector Relationship Specialty Start Date End Date Agatha Beach DO [address] [place] [address] PCP - General Family Medicine 07/02/24 documented as of this encounter
--- OUTSIDE RECORDS SUMMARY | 2024-09-13 02:30 | External Medical Summary | Summary of Care ---
Author Name Unknown Organization [facility] [address] [facility] [address] Phone [phone] Care Team Providers Care Colorist Photography Name Role Phone Agatha Beach DO Primary Care Provider Reason for Visit * Reason Onset Date Comments Fax 03/05/2024 PT referral Encounter Details Date Type Department Care Team (Late st Contact Info) Description 03/05/2024 Telephone [facility] DEPT CLOSED - 05/09/24 [address] [facility] [place] [phone] Agatha Beach, DO [address] [facility] [place] [address] Fax (PT referral) Allergies Active Allergy Reactions Criticality Noted Date Comments Egg-Derived Products Diarrhea 12/13/2019 Egg yolks Sulfa Antibiotics Other (Please comment) 2023 Upset stomach documented as of this encounter (statuses as of 06/04/2024) Medications Cholecalciferol 1000 UNITS Capsule Take 1 [...] SITE DAILY 09/05/19 24 Active Droplet Pen [place] 32G X 4 MM (Insulin Pen Needle)Indicatio ns:Type 2 diabetes mellitus with hemoglobin A1c goal of less than or equal to 9.0% (HCC) use three times a day 300 Each 3 10/18/19 24 Active Carvedilol 12.5 MG Oral Tablet (Coreg)Indicatio ns:Coronary artery disease of [place] artery of [place] heart with stable angina pectoris (HCC),HTN, goal below 140/90,Hypertens sarmad heart and renal disease, 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 180 Tablet 3 11/02/19 24 Active Nitroglycerin 0.4 MG Sublingual Tablet Sublingual (Nitrostat)Indic ations:Coronary artery disease of [place] artery of [place] heart with stable angina pectoris (HCC) Place 1 Tablet under the tongue every 5 minutes as needed for chest Pain. 75 Tablet 4 04/25/2024 3:49 PM EST 11/20/19 24 Active documented as of this encounter (statuses as of 06/04/2024) Active Problems Problem Noted Date Diagnosed Date Aortic ectasia, abdominal 10/11/2023 Coronary artery disease of n ative artery of [place] heart with stable angina pectoris 07/07/2023 Overview [...] cardiology f/u Recently had stents placed at [facility] Assessment & Plan (08/02/2023 12:43 PM [...] Moderate-High Intensity Statin Aspirin Additional Comments Has noy CGM Hemoglobin AIC Results: Lab Results Component [...] Moderate-High Intensity Statin Aspirin Additional Comments Has noy CGM History of hyperaldosteronism 04/10/2014 Dyslipidemia, goal LDL below 70 04/02/2013 Overview (09/21/2015): ICD-10 update of inactive term JACOB (obstructive sleep apnea) 05/18/2012 Overview (07/18/2017): BIPAP 04/26, suboptimal d/t intolerance [facility] Oxygen HTN, goal below 140/90 04/23/2012 Gout documented as of this encounter (statuses as of 06/04/2024) Resolved Problems Problem Noted Date Diagnosed Date [...] as of this encounter (statuses as of 06/04/2024) Immunizations Name Administration Dates Next Due COVID-19 [...] money to buy more. 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 file Not on karyn e documented as of this encounter Miscellaneous Notes * Telephone Encounter - Renée Guerra OSA - 03/05/2024 2:51 PM EDT Caller requesting the following information to be faxed: Name/Company of caller: [employer] Information requested to be faxed: PT referral Fax number: [phone] Attention to Name/Company: [employer] Any additional information?: patient is scheduled for 03/06/24 at 4:30 pm documented in this encounter Plan of Treatment Upcoming Encounters Date Type Department Care Team (Latest Contact Info) Description 06/10/2024 4:00 PM EST [facility] [address] [place] [address] Yeni Kent, RN [address] [place] [address] 07/09/2024 3:00 PM EST [facility] [address] [place] [address] Barron Gallo PA-C [address] [place] [address] 07/11/2024 9:30 AM EST Office Visit [facility] [address] [facility] [place] [phone] Agatha Beach DO 226 [place] [address] 07/15/2024 11:38 AM EST Hospital Encounter OR [facility], Operating Room, [facility] - 4th Floor [address] [place] [phone] Andrew Isaac MD [address] [place] [address] 07/15/2024 11:38 AM EST - 07/15/2024 12:34 PM EST Surgery OR [facility], Operating Room, [facility] - 4th Floor [address] [facility] [place] [phone] Andrew Isaac MD [address] [place] [address] COLONOSCOPY FLEXIBLE PROXIMAL DIAGNOSTIC 11/18/2024 11:30 AM EDT Imaging Radiology [facility] [address] [place] [phone] 11/18/2024 4:00 PM EDT Office Visit Cardiology, [facility] [address] [place] [address] Emeka Sheets MD [address] [place] [address] 11/19/2024 11:30 AM EDT Office Visit [facility], [place] [address] [facility] [place] [phone] [place] [address] [facility] [place] [address] 11/25/2024 10:45 AM EDT Telemedicine Urology Lori Doshi [address] [place] [address] Zeferino Bah Jr., MD [address] [place] [address] Scheduled Procedures Name Priority Associated Diagnoses Date/Ti [...] the patient have Health Care Power of Terra [place]ta Roofer Helper? No * Full Code Date Activated Date [...] Power of Attor indira? No Care Teams Colorist Photography Relationship Specialty Start Date End Date Agatha Beach DO PCP - General Family Medicine 01/25/13 documented as of this encounter
--- OUTSIDE RECORDS SUMMARY | 2024-09-13 02:30 | External Medical Summary | Summary of Care ---
Author Name Unknown Organization [facility] [address] [facility] [facility] [address] Phone [phone] Care Team Providers Care Senior Benefits Specialist Name Role Phone Jenny Becah DO Primary Care Provider [phone] Reason for Visit * Reason Comments Medication Refill Encounter Details Date Type Department Care Team (Late st Contact Info) Description 06/04/2024 Refill [facility] [address] [place] [phone] Jenny Beach DO [address] [facility] [place] [address] Allergies Active Allergy Reactions Criticality Noted Date [...] 4 3:10 PM EST 07/11/19 24 Active Atorvastatin Calcium 80 MG Oral Tablet (Lipitor)Indicat ions:Hyperlipide sudhir with target LDL less than 70 TAKE ONE TABLET BY MOUTH EVERY DAY 90 Tablet 3 4 12:05 PM EST 07/17/19 24 025 Active Ezetimibe 10 MG Oral Tablet (Zetia)Indicatio ns:Dyslipidemia, goal LDL below 70 TAKE ONE TABLET BY MOUTH EVERY MORNING 90 Tablet 3 4 12:05 PM EST 07/17/19 24 025 Active Gentamicin Sulfate 0.1 % External Cream PUT ON EXIT SITE DAILY 09/05/19 24 Active Droplet Pen [place] 32G X 4 MM (Insulin Pen Needle)Indicatio ns:Type 2 diabetes mellitus with hemoglobin A1c goal of less than or equal to 9.0% (HCC) use three times a day 300 Each 3 10/18/19 24 Active Carvedilol 12.5 MG Oral Tablet (Coreg)Indicatio ns:Coronary artery disease of [place] artery of [place] heart with stable angina pectoris (HCC),HTN, goal below 140/90,Hypertens sarmad heart and renal disease, 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 180 Tablet 3 11/02/19 24 Active Nitroglycerin 0.4 MG Sublingual Tablet Sublingual (Nitrostat)Indic ations:Coronary artery disease of [place] artery of [place] heart with stable angina pectoris (HCC) Place 1 Tablet under the tongue every 5 minutes as needed for chest Pain. 75 Tablet 4 4 3:49 PM EST 11/20/19 24 Active Insulin Glargine Solostar 100 UNIT/ML Subcutaneous Solution Pen-injector (Lantus SoloStar) Inject 12 Units under the skin in the morning. 15 mL 1 4 4:30 PM EDT 03/19/20 24 Active Isosorbide Mononitrate ER 60 MG Oral Tablet Extended Release 24 Hour (Imdur) Take 1.5 Tablets by mouth in the morning. 135 Tablet 3 04/30/20 24 Active FreeStyle Elis 3 Sensor Use [...] skin once a week. 9 mL 1 06/04/19 25 Active Ozempic (2 MG/DOSE) 8 MG/3ML Subcutaneous Solution Pen-injector (Semaglutide (2 MG/DOSE)) Inject 2 mg under the skin once a week. 9 mL 1 4 6:31 AM EDT 12/26/19 24 025 Discontin ued(Refil l) documented as of this encounter (statuses as of 06/04/2024) Active Problems Problem Noted Date Diagnosed Date Aortic ectasia, abdominal 10/11/2023 Coronary artery disease of n ative artery of [place] heart with stable angina pectoris 07/07/2023 Overview [...] cardiology f/u Recently had stents placed at [facility] Assessment & Plan (08/02/2023 12:43 PM EDT): [...] Intensity Statin Aspirin Additional Comments Has elis CGCasaRoma History of hyperaldosteronism 04/10/2014 Dyslipidemia, goal LDL [...] 30 Mcg, IM, 12 yrs and above ([employer]) 05/19/2022 Hepatitis B, 20+ yrs 04/24/2017,11/16/2016,10/06 Pneumococcal [...] 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 [address] [place] [address] Yeni Kent, RN [address] [place] [address] 07/09/2024 3:00 PM EST [facility] Visit [facility] [place] [address] [place] [address] Barron Gallo PA-C [address] [place] [address] 07/11/2024 9:30 AM EST Office Visit [facility] [phone] Jenny Beach DO [address] [facility] [place] [address] 07/15/2024 11:38 AM EST Hospital Encounter OR [facility], Operating Room, [facility] - 4th Floor 400 [facility] [place] [phone] Andrew Isaac MD [address] [place] [address] 07/15/2024 11:38 AM EST - 07/15/2024 12:34 PM EST Surgery OR [facility], Operating Room, [facility] - 4th Floor [address] [facility] [place] [phone] Andrew Isaac MD [address] [place] [address] COLONOSCOPY FLEXIBLE PROXIMAL DIAGNOSTIC 11/18/2024 11:30 AM EDT Imaging Radiology [facility] [address] [place] [phone] 11/18/2024 4:00 PM EDT Office Visit Cardiology, [facility] [place] [address] Emeka Sheets MD [address] [place] [address] 11/19/2024 11:30 AM EDT [facility] 226 [place] [phone] [address] [address] 11/25/2024 10:45 AM EDT Telemedicine Urology Lori Doshi [address] [facility] [address] [place] [address] Zeferino Bah Jr., MD [address] [place] [address] Scheduled Procedures Name Priority Associated Diagnoses Date/Ti [...] the patient have Health Care Power of Founder And Chief Technical Officer? No * Full Code Date Activated Date [...] Power of Attor indira? No Care Teams Senior Benefits Specialist Relationship Specialty Start Date End Date Jenny Beach DO PCP - General Family Medicine 01/25/13 documented as of this encounter
--- OUTSIDE RECORDS SUMMARY | 2024-09-13 02:30 | External Medical Summary | Summary of Care ---
Author Name Unknown Organization [facility] Address [address] [place] [address] Phone [phone] Care Team Providers Care Director Of Trauma Name Role Phone Agatha Beach Primary Care Provider [phone] Encounter Details Date Type Department Care Team (Late st Contact Info) Description 06/04/2024 Population Health External Data Unspecified Department Allergies Active Allergy Reactions Criticality Noted Date Comments Egg-Derived Products Diarrhea 12/13/2019 Egg yolks Sulfa Antibiotics Other (Please comment) 2023 Upset stomach documented as of this encounter (statuses as of 06/05/2024) Medications Cholecalciferol 1000 UNITS Capsule Take 1 [...] SITE DAILY 09/05/19 24 Active Droplet Pen [place] 32G X 4 MM (Insulin Pen Needle)Indicatio ns:Type 2 diabetes mellitus with hemoglobin A1c goal of less than or equal to 9.0% (HCC) use three times a day 300 Each 3 10/18/19 24 Active Carvedilol 12.5 MG Oral Tablet (Coreg)Indicatio ns:Coronary artery disease of [place] artery of [place] heart with stable angina pectoris (HCC),HTN, goal below 140/90,Hypertens sarmad heart and renal disease, 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 180 Tablet 3 11/02/19 24 Active Nitroglycerin 0.4 MG Sublingual Tablet Sublingual (Nitrostat)Indic ations:Coronary artery disease of [place] artery of [place] heart with stable angina pectoris (HCC) Place 1 Tablet under the tongue every 5 minutes as needed for chest Pain. 75 Tablet 4 04/25/2024 3:49 PM EST 11/20/19 24 Active Insulin Glargine Solostar 100 UNIT/ML Subcutaneous Solution Pen-injector (Lantus SoloStar) Inject 12 Units under the skin in the morning. 15 mL 1 03/19/2024 4:30 PM EDT 03/19/20 24 Active Isosorbide [...] In the morning.. 90 Tablet 2 05/31/19 Active Ozempic (2 MG/DOSE) 8 MG/3ML Subcutaneous Solution Pen-injector (Semaglutide (2 MG/DOSE)) Inject 2 mg under the skin once a week. 9 mL 1 06/04/19 25 Active documented as of this encounter (statuses as of 06/05/2024) Active Problems Problem Noted Date Diagnosed Date Aortic ectasia, abdominal 10/11/2023 Coronary artery disease of n ative artery of [place] heart with stable angina pectoris 07/07/2023 Overview [...] cardiology f/u Recently had stents placed at [facility] Assessment & Plan (08/02/2023 12:43 PM EDT): [...] as of this encounter (statuses as of 06/05/2024) Resolved Problems Problem Noted Date Diagnosed Date [...] as of this encounter (statuses as of 06/05/2024) Immunizations Name Administration Dates Next Due COVID-19 [...] 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 [address] [place] [phone] Agatha Beach DO [address] [place] [address] 07/15/2024 11:38 AM EST Hospital Encounter OR [facility], Operating Room, [facility] - 4th Floor [address] [place] [phone] Andrew Isaac MD [address] [place] [address] 07/15/2024 11:38 AM EST - 07/15/2024 12:34 PM EST Surgery OR [facility], Operating Room, [facility] - 4th Floor [address] [place] [phone] Andrew Isaac MD [address] [place] [address] COLONOSCOPY FLEXIBLE PROXIMAL DIAGNOSTIC 11/18/2024 11:30 AM EDT Imaging Radiology [facility] [address] [place] [phone] 11/18/2024 4:00 PM EDT Office Visit Cardiology, [facility] 132 [place] [address] Emeka Sheets MD [address] [place] [address] 11/19/2024 11:30 AM EDT [facility] [place] [phone] [place] [phone] [facility] [address] 11/25/2024 10:45 AM EDT Telemedicine Urology Lori Doshi [address] [place] [address] Zeferino Bah Jr., MD [address] [place] [address] Scheduled Procedures Name Priority Associated Diagnoses Date/Ti [...] the patient have Health Care Power of Bus Driver? No * Full Code Date Activated Date [...] Power of Attor indira? No Care Teams Director Of Trauma Relationship Specialty Start Date End Date Agatha Beach DO PCP - General Family Medicine 01/25/13 documented as of this encounter
--- OUTSIDE RECORDS SUMMARY | 2024-09-13 02:30 | External Medical Summary | Summary of Care ---
Author Name Unknown Organization [facility] Address [address] [place] [address] Phone [phone] Care Team Providers Care Vacuum Cleaner Repairer Name Role Phone Agatha Beach Primary Care Provider [phone] Encounter Details Date Type Department Care Team (Late st Contact Info) Description 06/10/2024 Population Health External Data Unspecified Department Allergies Active Allergy Reactions Criticality Noted Date Comments Egg-Derived Products Diarrhea 12/13/2019 Egg yolks Sulfa Antibiotics Other (Please comment) 2023 Upset stomach documented as of this encounter (statuses as of 06/10/2024) Medications Cholecalciferol 1000 UNITS Capsule Take 1 [...] SITE DAILY 09/05/19 24 Active Droplet Pen [place] 32G X 4 MM (Insulin Pen Needle)Indicatio ns:Type 2 diabetes mellitus with hemoglobin A1c goal of less than or equal to 9.0% (HCC) use three times a day 300 Each 3 10/18/19 24 Active Carvedilol 12.5 MG Oral Tablet (Coreg)Indicatio ns:Coronary artery disease of [place] artery of [place] heart with stable angina pectoris (HCC),HTN, goal below 140/90,Hypertens sarmad heart and renal disease, 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 180 Tablet 3 11/02/19 24 Active Nitroglycerin 0.4 MG Sublingual Tablet Sublingual (Nitrostat)Indic ations:Coronary artery disease of [place] artery of [place] heart with stable angina pectoris (HCC) Place [...] as of this encounter (statuses as of 06/10/2024) Active Problems Problem Noted Date Diagnosed Date Aortic ectasia, abdominal 10/11/2023 Coronary artery disease of n ative artery of [place] heart with stable angina pectoris 07/07/2023 Overview [...] cardiology f/u Recently had stents placed at [facility] Assessment & Plan (08/02/2023 12:43 PM [...] as of this encounter (statuses as of 06/10/2024) Resolved Problems Problem Noted Date Diagnosed Date [...] as of this encounter (statuses as of 06/10/2024) Immunizations Name Administration Dates Next Due COVID-19 [...] 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 Ruthy Wilder [address] [facility] [place] [phone] Agatha Beach DO [address] [place] [address] 07/15/2024 11:38 AM EST Hospital Encounter OR [facility], Operating Room, [facility] - 4th Floor [address] [place] [phone] Andrew Isaac MD [address] [place] [address] 07/15/2024 11:38 AM EST - 07/15/2024 12:34 PM EST Surgery OR [facility], Operating Room, [facility] - 4th Floor [address] [place] [phone] Andrew Isaac MD [address] [place] [address] COLONOSCOPY FLEXIBLE PROXIMAL DIAGNOSTIC 11/18/2024 11:30 AM EDT Imaging Radiology [facility] 132 [facility] [place] [phone] 11/18/2024 4:00 PM EDT Office Visit Cardiology, [facility] [address] [place] [address] Emeka Sheets MD [address] [place] [address] 11/19/2024 11:30 AM EDT [facility] [place] [facility] 226 [facility] [phone] Марина [facility] [address] [facility] [address] 11/25/2024 10:45 AM EDT Telemedicine Urology Lori Doshi [address] [place] [address] Zeferino Bah Jr., MD [address] [place] [address] Scheduled Procedures Name Priority Associated Diagnoses Date/Ti [...] the patient have Health Care Power of Sas Developer Analyst? No * Full Code Date Activated Date [...] Power of Attor indira? No Care Teams Vacuum Cleaner Repairer Relationship Specialty Start Date End Date Agatha Beach DO PCP - General Family Medicine 01/25/13 documented as of this encounter
--- OUTSIDE RECORDS SUMMARY | 2024-09-13 02:30 | External Medical Summary | Summary of Care ---
Author Name Unknown Organization [facility] Address [address] [place] [address] Phone [phone] Care Team Providers Care Store Stock Help Name Role Phone ShasabaamarayvetteWilliama Ioana BELL Primary Care Provider [phone] Encounter Details Date Type Department Care Team (Late st Contact Info) Description 06/10/2024 4:00 PM EST [facility], [facility] [address] [place] [address] Yeni Kent RN [address] [place] [address] Allergies Active Allergy Reactions Criticality Noted Date Comments Egg-Derived Products Diarrhea 12/13/2019 Egg yolks Sulfa Antibiotics Other (Please comment) 2023 Upset stomach documented as of this encounter (statuses as of 06/11/2024) Medications Cholecalciferol 1000 UNITS Capsule Take 1 [...] SITE DAILY 09/05/19 24 Active Droplet [place] 32G X 4 MM (Insulin Pen Needle)Indicatio ns:Type 2 diabetes mellitus with hemoglobin A1c goal of less than or equal to 9.0% (HCC) use three times a day 300 Each 3 10/18/19 24 Active Carvedilol 12.5 MG Oral Tablet (Coreg)Indicatio ns:Coronary artery disease of [place]western [place] artery of [place] sh[place] heart with stable angina pectoris (HCC),HTN, goal below 140/90,Hypertens sarmad heart and renal disease, 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 180 Tablet 3 11/02/19 24 Active Additional Information Patient taking differently: 6.25 mgOral BID (.AM/PM), Reported on 06/10/2024 Nitroglycerin 0.4 MG Sublingual Tablet Sublingual (Nitrostat)Indic ations:Coronary artery disease of [place]western [place] artery of [place]western shoshone heart with stable angina pectoris (HCC) Place [...] mL 1 06/10/2024 7:30 AM EST 06/04/19 Active documented as of this encounter (statuses as of 06/11/2024) Active Problems Problem Noted Date Diagnosed Date Aortic ectasia, abdominal 10/11/2023 Coronary artery disease of n ative artery of northwestern shoshone heart with stable angina pectoris 07/07/2023 Overview [...] cardiology f/u Recently had stents placed at [facility] Assessment & Plan (08/02/2023 12:43 PM [...] as of this encounter (statuses as of 06/11/2024) Resolved Problems Problem Noted Date Diagnosed Date [...] as of this encounter (statuses as of 06/11/2024) Immunizations Name Administration Dates Next Due COVID-19 [...] No 02/09/2024 Does the household have a memorial healthcarer source of income? 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 file Not on karyn e documented as of this encounter Last Filed Vital Signs Vital Sign Reading Time Taken Comments Blood Pressure 130/64 06/10/2024 3:31 PM EST Pulse 75 06/10/2024 3:31 PM EST Temperature 36.9 °C (98.5 °F) 06/10/2024 3:31 PM ES T Respiratory Rate 18 06/10/2024 3:31 PM EST Oxygen Saturation 97% 06/10/2024 3:31 PM EST Inhaled Oxygen Concentration - - Weight - - Height - - Body Mass Index - - documented in this encounter Progress Notes * Yeni Kent, RN - 06/10/2024 4:00 PM EST Current Concerns: Pt seen for return RNCM visit Was having issues with being tired and having low bp reading contacted Cardiology and Carvedilol was decreased to 6.25mg twice a day BP's have improved since change Reports he hasn't been out as much d/t the cold weather - reports cold air give him tightness of chest Going to [facility] on 07/[address] Cruz and ORTHOTIC TECHNICIAN procedure No acute concerns at this time Physical Exam: Physical Exam Constitutional: General: He is not in acute distress. Cardiovascular: Rate and Rhythm: Normal rate and regular rhythm. Pulses: Normal pulses. Heart sounds: Normal heart sounds. Pulmonary: Effort: Pulmonary effort is normal. Breath sounds: Normal breath sounds. Abdominal: Palpations: Abdomen is soft. Skin: General: Skin is warm and dry. Neurological: Mental Status: He is alert and oriented to person, place, and time. Review of Systems: Review of Systems Constitutional: Negative. HENT: Negative. Eyes: Negative. Respiratory: Positive for chest tightness (with cold weather). Cardiovascular: Negative. Gastrointestinal: Negative. Genitourinary: Negative. Musculoskeletal: Positive for arthralgias and gait problem. Psychiatric/Behavioral: Negative. Care Plan Goal Progress: Orders Placed: No orders of the defined types were placed in this encounter. Medications Given: Care Gaps: Care Gaps Care gaps closed this contact: Education;Medications;Plan of Care (POC) (06/10/24 212) Type of education: Clinical/disease (06/10/24 460) Type of medication care gap: Medication adherence (06/10/24 268) Type of plan of care (POC) care gap: Adjustment of plan of care (POC) and/or Integrated Care Plan (ICP);Education and review of exacerbation plan (06/10/24 6373) documented in this encounter Plan of Treatment Upcoming Encounters Date Type Department Care Team (Latest Contact Info) Description 07/09/2024 3:00 PM EST [facility] Visit [facility] [address] [facility] [place] [address] Barron Gallo PA-C [address] [facility] [place] [address] 07/11/2024 9:30 AM EST [facility] [address] [facility] [address] [place] [phone] Agatha Beach DO [address] [place] [address] 07/15/2024 11:38 AM EST Hospital Encounter OR [facility], Operating Room, [facility] - 4th Floor [address] [facility] [place] [phone] Andrew Isaac MD [address] [place] [address] 07/15/2024 11:38 AM EST - 07/15/2024 12:34 PM EST Surgery OR [facility], Operating Room, [facility] - 4th Floor [address] [facility] [place] [address] Andrew Isaac MD [address] [place] [address] COLONOSCOPY FLEXIBLE PROXIMAL DIAGNOSTIC 07/29/2024 3:30 PM EDT Home Visit [facility] [address] [place] [address] Yeni Kent RN [address] [place] [address] 11/18/2024 11:30 AM EDT Imaging Radiology [facility] [address] [place] [phone] 11/18/2024 4:00 PM EDT Office Visit Cardiology, [facility] [address] [place] [address] Emeka Sheets MD [address] [place] [address] 11/19/2024 11:30 AM EDT Office Visit Pharmacy, [facility] [address] [place] [phone] [facility] [address] [facility] [place] [address] 11/25/2024 10:45 AM EDT Telemedicine Urology Lori Doshi [address] [place] [address] Zeferino Bah Jr., MD [address] [place] [address] Scheduled Procedures Name Priority Associated Diagnoses Date/Ti [...] the patient have Health Care Power of Entry Examiner? No * Full Code Date Activated Date [...] Power of Attor indira? No Care Teams Store Stock Help Relationship Specialty Start Date End Date Agatha Beach DO PCP - General Family Medicine 01/25/13 documented as of this encounter
--- OUTSIDE RECORDS SUMMARY | 2024-09-13 02:31 | External Medical Summary | Summary of Care ---
Author Name Unknown Organization [facility] Address [address] [place] [address] Phone [phone] Care Team Providers Care Vamp Liner Name Role Phone Agatha Beach Primary Care Provider [phone] Encounter Details Date Type Department Care Team (Late st Contact Info) Description 05/23/2024 Population Health External Data Unspecified Department Allergies Active Allergy Reactions Criticality Noted Date Comments Egg-Derived Products Diarrhea 12/13/2019 Egg yolks Sulfa Antibiotics Other (Please comment) 2023 Upset stomach documented as of this encounter (statuses as of 05/28/2024) Medications Cholecalciferol 1000 UNITS Capsule Take 1 [...] 12:05 PM EST 07/17/19 24 025 Active Clopidogrel Bisulfate 75 MG Oral Tablet (pLAVix)Indicati ons:Right-sided lacunar infarction (HCC) take 1 tablet by mouth every morning 90 Tablet 2 08/10/19 24 Active Gentamicin Sulfate 0.1 % External Cream PUT ON EXIT SITE DAILY 09/05/19 24 Active Droplet [place] 32G X 4 MM (Insulin Pen Needle)Indicatio ns:Type 2 diabetes mellitus with hemoglobin A1c goal of less than or equal to 9.0% (HCC) use three times a day 300 Each 3 10/18/19 24 Active Carvedilol 12.5 MG Oral Tablet (Coreg)Indicatio ns: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 75 Tablet 4 04/25/2024 3:49 PM EST 11/20/19 24 Active Ozempic (2 MG/DOSE) 8 MG/3ML Subcutaneous Solution Pen-injector (Semaglutide (2 MG/DOSE)) Inject 2 mg under the skin once a week. 9 mL 1 03/20/2024 6:31 AM EDT 12/26/19 24 Active Insulin Glargine Solostar 100 UNIT/ML Subcutaneous Solution Pen-injector (Lantus SoloStar) Inject 12 Units under the skin in the morning. 15 mL 1 03/19/2024 4:30 PM EDT 03/19/20 Active Isosorbide Mononitrate ER 60 MG Oral Tablet Extended Release 24 Hour (Imdur) Take 1.5 Tablets by mouth in the morning. 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 07/07/2023 Overview [...] f/u Recently had stents placed at [facility] Assessment & Plan (08/02/2023 12:43 PM [...] as of this encounter (statuses as of 05/28/2024) Resolved Problems Problem Noted Date Diagnosed Date [...] as of this encounter (statuses as of 05/28/2024) Immunizations Name Administration Dates Next Due COVID-19 [...] Used Date Smoking Tobacco: Former Cigarettes 1 1 967 - 1984 Passive Smoke Exposure: [...] 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 [address] [place] [phone] Agatha Beach DO [address] [place] [address] 07/15/2024 11:38 AM EST Hospital Encounter OR [facility], Operating Room, [facility] - 4th Floor [address] [place] [address] Andrew Isaac MD [address] [place] [address] 07/15/2024 11:38 AM EST - 07/15/2024 12:34 PM EST Surgery OR [facility], Operating Room, [facility] - 4th Floor [address] [place] [phone] Andrew Isaac MD [address] [place] [address] COLONOSCOPY FLEXIBLE PROXIMAL DIAGNOSTIC 08/02/2024 11:00 AM EDT Office Visit Cardiology, [facility] [address] [facility] [place] [address] Emeka Sheets MD [address] [place] [address] 11/18/2024 11:30 AM EDT Imaging Radiology [facility] [address] [place] [address] 11/18/2024 4:00 PM EDT Office Visit Cardiology, [facility] [address] [facility] [place] [address] Emeka Sheets MD [address] [place] [address] 11/19/2024 11:30 AM EDT Office Visit Pharmacy, [facility] Bliss [address] [place] [phone] [place] [address] [facility] [address] 11/25/2024 10:45 AM EDT Telemedicine Urology Carire Doshiwn [address] [place] [address] Niurka Dorado, Zeferino Candelaria MD [address] [place] [address] Scheduled Procedures Name Priority Associated Diagnoses Date/Ti [...] 04/25/2019, 06/16/2016, 06/23/2012 Zoster Vaccines Completed 04/24/2020, 0906/2019, 06/14/2013 Albumin/Creatinine Ratio Discontinued 023, 04/27/2022, 08/11/2021, [...] the patient have Health Care Power of Channel Opener Outsoles? No * Full Code Date Activated Date [...] Power of Attor indira? No Care Teams Vamp Liner Relationship Specialty Start Date End Date Agatha Beach DO PCP - General Family Medicine 01/25/13 documented as of this encounter
--- OUTSIDE RECORDS SUMMARY | 2024-09-13 02:31 | External Medical Summary | Summary of Care ---
Author Name Unknown Organization [facility] Address [address] [facility] [place] [address] Phone [phone] Care Team Providers Care Risk Intern Name Role Phone Agatha Beach Primary Care Provider [phone] Reason for Visit * Reason Onset Date Comments Durable Medical Equipment 05/24/2024 Home c are delivered- elis 3 Encounter Details Date Type Department Care Team (Late st Contact Info) Description 05/24/2024 Telephone Pharmacy, [address] [facility] [place] [address] Tracey Bearden, [facility] [address] [facility] [place] [address] Durable Medical Equipment (Home care deliv... Allergies Active Allergy Reactions Criticality Noted Date Comments Egg-Derived Products Diarrhea 12/13/2019 Egg yolks Sulfa Antibiotics Other (Please comment) 2023 Upset stomach documented as of this encounter (statuses as of 05/24/2024) Medications Cholecalciferol 1000 UNITS Capsule Take 1 [...] 11 4 3:10 PM EST 024 Active Atorvastatin Calcium 80 MG Oral Tablet (Lipitor)Indica tions:Hyperlipi demia with target LDL less than 70 TAKE ONE TABLET BY MOUTH EVERY DAY 90 Tablet 3 4 12:05 PM EST 024 2024 Active Ezetimibe 10 MG Oral Tablet (Zetia)Indicati ons:Dyslipidemi a, goal LDL below 70 TAKE ONE TABLET BY MOUTH EVERY MORNING 90 Tablet 3 4 12:05 PM EST 024 2024 Active Clopidogrel Bisulfate 75 MG Oral Tablet (pLAVix)Indicat ions:Right-side d lacunar infarction (HCC) take 1 tablet by mouth every morning 90 Tablet 2 024 Active Gentamicin Sulfate 0.1 % External Cream PUT ON EXIT SITE DAILY 024 Active Droplet Pen [place] 32G X 4 MM (Insulin Pen Needle)Indicati ons:Type 2 diabetes mellitus with hemoglobin A1c goal of less than or equal to 9.0% (HCC) use three times a day 300 Each 3 024 Active Carvedilol 12.5 MG Oral Tablet (Coreg)Indicati ons:Coronary artery disease of [place] artery of [place] heart with stable angina pectoris (HCC),HTN, goal below 140/90,Hyperten sive heart and renal disease, 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 180 Tablet 3 024 Active Nitroglycerin 0.4 MG Sublingual Tablet Sublingual (Nitrostat)Delia cations:Coronar y artery disease of [place]ag[place] artery of [place] heart with stable angina pectoris (HCC) Place 1 Tablet under the tongue every 5 minutes as needed for chest Pain. 75 Tablet 4 4 3:49 PM EST Active Ozempic (2 MG/DOSE) 8 MG/3ML Subcutaneous Solution Pen-injector (Semaglutide (2 MG/DOSE)) Inject 2 mg under the skin once a week. 9 mL 1 4 6:31 AM EDT Active Insulin Glargine Solostar 100 UNIT/ML Subcutaneous Solution Pen-injector (Lantus SoloStar) Inject 12 Units under the skin in the morning. 15 mL 1 4 4:30 PM EDT Active Isosorbide Mononitrate ER 60 MG Oral Tablet Extended Release 24 Hour (Imdur) Take 1.5 Tablets by mouth in the morning. 135 Tablet 3 Active FreeStyle Elis 3 Sensor Use as directed every 14 days. Supplied by home care delivered Active FreeStyle Elis 14 Day [place] DeviceIndicatio ns:Type 2 diabetes mellitus with hemoglobin A1c goal of less than or equal to 9.0% (HCC) Use to test blood sugars every 8 hours as directed. Dx E11.9 1 Each 022 2024 Discontinued FreeStyle Elis 14 Day SensorIndicatio ns:Type 2 diabetes mellitus with hemoglobin A1c goal of less than or equal to 9.0% (HCC) Use as directed NO SUBSTITUTIONS 6 Each 3 024 2024 Discontinued FreeStyle Elis 3 Sensor Use as directed every 14 days. 2 Each 11 024 2024 Discontinued documented as of this encounter (statuses as of 05/24/2024) Active Problems Problem Noted Date Diagnosed Date Aortic ectasia, abdominal 10/11/2023 Coronary artery disease of n ative artery of shag[place] heart with stable angina pectoris 07/07/2023 Overview [...] cardiology f/u Recently had stents placed at [facility] Assessment & Plan (08/02/2023 12:43 [...] as of this encounter (statuses as of 05/24/2024) Resolved Problems Problem Noted Date Diagnosed Date [...] as of this encounter (statuses as of 05/24/2024) Immunizations Name Administration Dates Next Due COVID-19 mRNA, LNP-s, No Pre serve, 2-Dose Series (Moderna) 08/03/2020,06/28/2020 COVID-19, mRNA, LNP-s, PF, B ooster, 100mcg/0.5mg (Moderna) 09/16/2021,04/06/2021 Covid-19, Mrna, Lnp-s, Pf, B ivalent, 30 Mcg, IM, 12 yrs and above (AudioTag) 05/19/2022 Hepatitis B, 20+ yrs 04/24/2017,11/16/2016,10/06 Pneumococcal [...] 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 Received successful confirmation of fax. Form scanned into chart. Tracey Bearden, PharmD, BCACP Clinical Pharmacist Medication Therapy Disease Management 05/24/2024, 11:10 AM documented in this encounter Plan of Treatment Upcoming Encounters Date Type Department Care Team (Latest Contact Info) Description 06/10/2024 4:00 PM EST [facility], [facility] [address] [place] [address] Yeni Kent RN [address] [place] [address] 07/04/2024 11:00 AM EST [facility] Visit [facility] [place], [facility] [address] [place] [address] Barron Gallo PA-C [address] [place] [address] 07/11/2024 9:30 AM EST [facility] [phone] Agatha Beach DO [facility] [place] [address] 07/15/2024 11:38 AM EST Hospital Encounter OR [facility], Operating Room, [facility] - 4th Floor [address] [facility] [place] [phone] Andrew Isaac MD [address] [place] [address] 07/15/2024 11:38 AM EST - 07/15/2024 12:34 PM EST Surgery [facility], Operating Room, [facility] - 4th Floor [address] [facility] [place] [address] Andrew Isaac MD [address] [place] [address] COLONOSCOPY FLEXIBLE PROXIMAL DIAGNOSTIC 08/02/2024 11:00 AM EDT Office Visit Cardiology, [facility] [address] [place] [address] Emeka Sheets MD [address] [place] [address] 11/18/2024 11:30 AM EDT Imaging Radiology [facility] [address] [place] [address] 11/18/2024 4:00 PM EDT Office Visit Cardiology, [facility] [address] [facility] [place] [address] Emeka Sheets MD [address] [place] [address] 11/19/2024 11:30 AM EDT [facility] Visit [facility] [place] [facility] [address] 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 (HCC) Type 2 diabetes mellitus with hemoglobin A1c goal of less than or equal to 9.0% (HCC) 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 No * Full Code Date Activated Date [...] Power of Attor indira? No Care Teams Risk Intern Relationship Specialty Start Date End Date Agatha Beach DO PCP - General Family Medicine 01/25/13 documented as of this encounter
--- OUTSIDE RECORDS SUMMARY | 2024-09-13 02:31 | External Medical Summary | Summary of Care ---
Author Name Unknown Organization [facility] Address [address] [facility] [place] [address] Phone [phone] Care Team Providers Care Library Supervisor Name Role Phone Agatha Beach Primary Care Provider [phone] Encounter Details Date Type Department Care Team (Late st Contact Info) Description 05/21/2024 3:15 PM EST Telemedicine Urology Lori Doshi [address] [place] [address] Zeferino Bah Jr., MD [address] [address] Elevated prostate specific antigen (PSA)*; Renal cysts, acquired, bilateral Allergies Active Allergy Reactions Criticality Noted Date Comments Egg-Derived Products Diarrhea 12/13/2019 Egg yolks Sulfa Antibiotics Other (Please comment) 2023 Upset stomach documented as of this encounter (statuses as of 05/21/2024) Medications Cholecalciferol 1000 UNITS Capsule Take 1 Capsule by mouth in the morning. 30 Cap 3 12/01/19 16 Active vitamin e (AQUASOL E) 400 UNIT Capsule Take 1 Capsule by mouth in the morning. Active FreeStyle Elis 14 Day [place] DeviceIndication s:Type 2 diabetes mellitus with hemoglobin A1c goal of less than or equal to 9.0% (HCC) Use to test blood sugars every 8 hours as directed. Dx E11.9 1 Each 01/13/20 22 Active Iron Sucrose 20 MG/ML Intravenous Solution [...] morning 90 Tablet 2 08/10/19 24 Active FreeStyle Elis 14 Day SensorIndication s:Type 2 diabetes mellitus with hemoglobin A1c goal of less than or equal to 9.0% (HCC) Use as directed NO SUBSTITUTIONS 6 Each 3 09/25/19 24 Active Gentamicin Sulfate 0.1 % External Cream PUT ON EXIT SITE DAILY 09/05/19 24 Active Droplet Pen [place] 32G X 4 MM (Insulin Pen Needle)Indicatio ns:Type 2 diabetes mellitus with hemoglobin A1c goal of less than or equal to 9.0% (HCC) use three times a day 300 Each 3 10/18/19 24 Active Carvedilol 12.5 MG Oral Tablet (Coreg)Indicatio ns:Coronary artery disease of [place] artery of [place] heart with stable angina pectoris (HCC),HTN, goal below 140/90,Hypertens sarmad heart and renal disease, 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 180 Tablet 3 11/02/19 24 Active Nitroglycerin 0.4 MG Sublingual Tablet Sublingual (Nitrostat)Indic ations:Coronary artery disease of n[place] artery of nenana heart with stable angina pectoris (HCC) Place [...] 03/19/2024 4:30 PM EDT 03/19/20 24 Active FreeStyle Elis 3 Sensor Use as directed every 14 days. 2 Each 11 03/27/20 24 Active Isosorbide Mononitrate ER 60 MG Oral Tablet Extended Release 24 Hour (Imdur) Take 1.5 Tablets by mouth in the morning. 135 Tablet 3 04/30/20 24 Active documented as of this encounter (statuses as of 05/21/2024) Active Problems Problem Noted Date Diagnosed Date Aortic ectasia, abdominal 10/11/2023 Coronary artery disease of n ative artery of nenana heart with stable angina pectoris 07/07/2023 Overview [...] placed at [facility] Assessment & Plan (08/02/2023 12:43 PM EDT): [...] as of this encounter (statuses as of 05/21/2024) Resolved Problems Problem Noted Date Diagnosed Date [...] as of this encounter (statuses as of 05/21/2024) Immunizations Name Administration Dates Next Due COVID-19 mRNA, LNP-s, No Pre serve, 2-Dose Series (Moderna) 08/03/2020,06/28/2020 COVID-19, mRNA, LNP-s, PF, B ooster, 100mcg/0.5mg (Moderna) 09/16/2021,04/06/2021 Covid-19, Mrna, Lnp-s, Pf, B ivalent, 30 Mcg, IM, 12 yrs and above (YouTube) 05/19/2022 Hepatitis B, 20+ yrs 04/24/2017,11/16/2016,10/06 Pneumococcal [...] 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 The PSA is stable and he has no voiding symptoms. I think this can be observed. He has an enlarged prostate or BPH. It is a condition where the gland can obstruct the flow of urine and create voiding dysfunction and possible complications like bleeding, retention of urine, and infections. We often treat with medications either alpha blockers to relax the gland or 5ARI's to shrink the gland. We discussed each of these and the risks and benefits. They can be used together for slightly better results. Surgical options include less invasive office procedures or surgical options like TURP or PVP for more difficult situations. He has microscopic hematuria and recent right flank pain with hydronephrosis. His imaging does not correlate well with the non contrast CT and renal ultrasound giving different findings. I will recommend getting a MRI of the kidneys first then follow up with cystoscopy possible right retrograde pyel ogram. We will call him the results of the MRI and discuss the cystoscopy and possible right retrograde pyelogram. MRI kidney IMPRESSION 1. Bilateral renal cysts, including proteinaceous cysts. 2. Complex cystic lesion in the pancreatic head, either serous cystadenoma or side branch IPMN. 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 3. Right adrenal adenoma. We offered cysto and retrograde or follow up ultrasound in 6 months documented in this encounter Plan of Treatment Upcoming Encounters Date Type Department Care Team (Latest Contact Info) Description 06/10/2024 4:00 PM EST [facility] Visit [facility] [address] [address] Yeni Kent RN [address] [address] 07/04/2024 11:00 AM EST [facility] Visit [facility] [address] [address] Barron Gallo PA-C [address] [address] 07/11/2024 9:30 AM EST Office Visit [facility] [address] [phone] Agatha Beach DO [address] [address] 07/15/2024 11:38 AM EST Hospital Encounter OR [facility], Operating Room, [facility] - 4th Floor [address] [place] [address] Andrew Isaac MD [address] [place] [address] 07/15/2024 11:38 AM EST - 07/15/2024 12:34 PM EST Surgery OR [facility], Operating Room, [facility] - 4th Floor [address] [facility], [place] [phone] Andrew Isaac MD [address] [place] [address] COLONOSCOPY FLEXIBLE PROXIMAL DIAGNOSTIC 08/02/2024 11:00 AM EDT Office Visit Cardiology, [facility] [address] [address] Emeka Sheets MD [address] [address] 11/18/2024 11:30 AM EDT Imaging Radiology [facility] [address] [address] 11/18/2024 4:00 PM EDT Office Visit Cardiology, [facility] [address] [address] Emeka Sheets MD [address] [address] 11/19/2024 11:30 AM EDT Office Visit Марина Argueta [address] [phone] [facility] [address] [facility] [place] [address] 11/25/2024 10:45 AM EDT Telemedicine Urology Tamia WilderLori [address] [address] Zeferino Bah Jr., MD [address] [place] [address] Scheduled Orders Name Type Priority Associated Diagnoses Orde r Schedule US RENAL Medical Imaging Routine Elevated prostate specific antigen (PSA) Renal cysts, acquired, bilateral Expected: 11/18/2024, Expires: 06/21/2025 Scheduled Procedures Name Priority Associated Diagnoses Date/Ti [...] Visit Diagnoses Diagnosis Coronary artery disease of nenana artery of nenana heart with stable angina pectoris (HCC)- Primary Hypertensive chronic kidney disease with 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 (HCC) Type 2 diabetes mellitus with hemoglobin A1c goal of less than or equal to 9.0% (HCC) 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) Advanced care planning/counseling discussion Other specified counseling Coronary artery disease of nenana artery of nenana heart with stable angina pectoris (HCC)- Primary Hypertensive chronic kidney disease with 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 (HCC) Type 2 diabetes mellitus with hemoglobin A1c goal of less than or equal to 9.0% (HCC) Elevated prostate specific antigen (PSA)- Primary Renal cysts, acquired, bilateral Acquired cyst of kidney Screen for colon cancer Special screening for [...] patient have Health Care Power of Supervisor Slashing Department? No * Full Code Date Activated Date [...] Power of Attor indira? No Care Teams Library Supervisor Relationship Specialty Start Date End Date Agatha Beach DO PCP - General Family Medicine 01/25/13 documented as of this encounter
--- OUTSIDE RECORDS SUMMARY | 2024-09-13 02:31 | External Medical Summary | Summary of Care ---
Author Name Unknown Organization [facility] [address] [facility] [place] [address] Phone [phone] Care Team Providers Care Office Clinician Name Role Phone Agatha Beach DO Primary Care Provider Encounter Details Date Type Department Care Team (Late st Contact Info) Description 05/02/2024 Telephone [facility] DEPT CLOSED - 05/09/24 [address] [facility] [place] [phone] Agatha Beach, DO [address] [facility] [place] [address] Allergies Active Allergy Reactions Criticality Noted Date Comments Egg-Derived Products Diarrhea 12/13/2019 Egg yolks Sulfa Antibiotics Other (Please comment) 2023 Upset stomach documented as of this encounter (statuses as of 05/23/2024) Medications Cholecalciferol 1000 UNITS Capsule Take 1 Capsule by mouth in the morning. 30 Cap 3 12/01/19 16 Active vitamin e (AQUASOL E) 400 UNIT Capsule Take 1 Capsule by mouth in the morning. Active FreeStyle Elis 14 Day [place] DeviceIndication s:Type 2 diabetes mellitus with hemoglobin [...] SITE DAILY 09/05/19 24 Active Droplet Pen [place] 32G X 4 MM (Insulin Pen Needle)Indicatio ns:Type 2 diabetes mellitus with hemoglobin A1c goal of less than or equal to 9.0% (HCC) use three times a day 300 Each 3 10/18/19 24 Active Carvedilol 12.5 MG Oral Tablet (Coreg)Indicatio ns:Coronary artery disease of [place] artery of [place] heart with stable angina pectoris (HCC),HTN, goal below 140/90,Hypertens sarmad heart and renal disease, 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 180 Tablet 3 11/02/19 24 Active Nitroglycerin 0.4 MG Sublingual Tablet Sublingual (Nitrostat)Indic ations:Coronary artery disease of [place] artery of [place] heart with stable angina pectoris (HCC) Place 1 Tablet under the tongue every 5 minutes as needed for chest Pain. 75 Tablet 4 04/25/2024 3:49 PM EST 11/20/19 Active Ozempic (2 MG/DOSE) 8 MG/3ML Subcutaneous Solution Pen-injector (Semaglutide (2 MG/DOSE)) Inject 2 mg under the skin once a week. 9 mL 1 03/20/2024 6:31 AM EDT 12/26/19 Active Insulin Glargine Solostar 100 UNIT/ML Subcutaneous Solution Pen-injector (Lantus SoloStar) Inject 12 Units under the skin in the morning. 15 mL 1 03/19/2024 4:30 PM EDT 03/19/20 Active FreeStyle Elis 3 Sensor Use as directed every 14 days. 2 Each 11 03/27/20 Active Isosorbide Mononitrate ER 60 MG Oral Tablet Extended Release 24 Hour (Imdur) Take 1.5 Tablets by mouth in the morning. 135 Tablet 3 04/30/20 Active documented as of this encounter (statuses as of 05/23/2024) Active Problems Problem Noted Date Diagnosed Date Aortic ectasia, abdominal 10/11/2023 Coronary artery disease of n ative artery of [place] heart with stable angina pectoris 07/07/2023 Overview [...] cardiology f/u Recently had stents placed at [facility] Assessment & Plan (08/02/2023 12:43 PM EDT): [...] as of this encounter (statuses as of 05/23/2024) Resolved Problems Problem Noted Date Diagnosed Date [...] as of this encounter (statuses as of 05/23/2024) Immunizations Name Administration Dates Next Due COVID-19 mRNA, LNP-s, No Pre serve, 2-Dose Series (Moderna) 08/03/2020,06/28/2020 COVID-19, mRNA, LNP-s, PF, B ooster, 100mcg/0.5mg (Moderna) 09/16/2021,04/06/2021 Covid-19, Mrna, Lnp-s, Pf, B ivalent, 30 Mcg, IM, 12 yrs and above (userfox) 05/19/2022 Hepatitis B, 20+ yrs 04/24/2017,11/16/2016,10/06 Pneumococcal [...] 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 Not on file Not on karyn e documented as of this encounter Plan of Treatment Upcoming Encounters Date Type Department Care Team (Latest Contact Info) Description 06/10/2024 4:00 PM EST [facility] [address] [address] Yeni Kent RN [address] [address] 07/04/2024 11:00 AM EST [facility] [address] [place] [address] Barron Gallo PA-C [address] [place] [address] 07/11/2024 9:30 AM EST [facility] [address] [facility] [phone] Agatha Beach DO [address] [facility] [address] 07/15/2024 11:38 AM EST Hospital Encounter OR [facility], Operating Room, [facility] - 4th Floor [address] [facility] [place] [phone] Andrew Isaac MD [address] [place] [address] 07/15/2024 11:38 AM EST - 07/15/2024 12:34 PM EST Surgery OR [facility], Operating Room, [facility] - 4th Floor [address] [facility] [place] [address] Andrew Isaac MD [address] [place] [address] [address] COLONOSCOPY FLEXIBLE PROXIMAL DIAGNOSTIC 08/02/2024 11:00 AM EDT Office Visit Cardiology, [facility] [address] [place] [address] Emeka Sheets MD [address] [address] [address] 11/18/2024 11:30 AM EDT Imaging Radiology [facility] [address] [place] [address] 11/18/2024 4:00 PM EDT [facility], [facility] [address] [facility] [place] [address] Emeka Sheets MD [address] [place] [address] 11/19/2024 11:30 AM EDT Office Visit [facility] [address] [facility] [email or web address] [phone] [address] [address] 11/25/2024 10:45 AM EDT Telemedicine Urology Lori Doshi [address] [place] [address] Zeferino Bah Jr., MD [address] [place] [address] Scheduled Procedures Name Priority Associated Diagnoses Date/Ti [...] Not on filedocumented as of this encounter Results * (ABNORMAL) BASIC METABOLIC PANEL (05/08/2024 9:58 AM EST) BUN 51(H) 6 - 20 mg/dL 05/08/2024 3:25 PM EST [facility] CREATININE 7.6(H) 0.6 - 1.2 mg/dL 05/08/2024 3:25 PM EST [facility] EGFR 7(L) >=60 mL/min 05/08/2024 3:25 PM EST [facility] Comment:eGFR is calculated b ased on the CKD-EPI 2020 equation. SODIUM 143 135 - 146 mmol/L 05/08/2024 3:25 PM EST [facility] POTASSIUM 4.7 3.5 - 5.1 mmol/L 05/08/2024 3:25 PM EST [facility] CHLORIDE 104 98 - 107 mmol/L 05/08/2024 3:25 PM EST [facility] CO2 25 22 - 32 mmol/L 05/08/2024 3:25 PM EST [facility] ANION GAP 14 7 - 15 mmol/L 05/08/2024 3:25 PM EST [facility] GLUCOSE 184(H) 70 - 120 mg/dL 05/08/2024 3:25 PM EST [facility] CALCIUM 9.2 8.4 - 10.2 mg/dL 05/08/2024 3:25 PM EST [facility] Blood Venous blood specimen / Unknown Venipuncture / Unknown 05/08/2024 9:58 AM EST 05/08/2024 9:58 AM EST us Agatha Beach DO LAB BLOOD ORDERABLES Final R esult [facility] [place] [address] [place], [place] [id number] documented in this encounter Visit Diagnoses Diagnosis Coronary artery disease of [place] artery of [place] heart with stable angina pectoris (HCC)- Primary Hypertensive chronic kidney disease with 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 (HCC) Type 2 diabetes mellitus with hemoglobin A1c goal of less than or equal to 9.0% (HCC) 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) Advanced care planning/counseling discussion Other specified counseling Coronary artery disease of [place] artery of [place] heart with stable angina pectoris (HCC)- Primary Hypertensive chronic kidney disease with 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 (HCC) Type 2 diabetes mellitus with hemoglobin A1c goal of less than or equal to 9.0% (HCC) Hypertensive kidney disease with chronic kidney disease stage IV (HCC)- Primary Unspecified hypertensive kidney disease with chronic kidney disease stage I through stage IV, or unspecified Screen for colon cancer Special screening for [...] the patient have Health Care Power of Mobile Application Tester? No * Full Code Date Activated Date [...] Power of Attor indira? No Care Teams Office Clinician Relationship Specialty Start Date End Date Agatha Beach DO PCP - General Family Medicine 01/25/13 documented as of this encounter
--- OUTSIDE RECORDS SUMMARY | 2024-09-13 02:31 | External Medical Summary | Summary of Care ---
Author Name Unknown Organization [facility] Address [address] [place] [address] Phone [phone] Care Team Providers Care Oil Well Shooter Name Role Phone Agatha Beach Primary Care Provider [phone] Reason for Visit * Reason Comments Dosage Adjustment In Person (Anticoag Cl inic) Diabetes Follow-Up Encounter Details Date Type Department Care Team (Late st Contact Info) Description 05/20/2024 10:00 AM EST Office Visit Pharmacy, [place] [address] [facility] [place] [phone] [place] [facility] [address] [place] [address] Type 2 diabetes mellitus with hemoglobin A1c goal of less than or equal to 9.0% ([facility])* Allergies Active Allergy Reactions Criticality Noted Date Comments Egg-Derived Products Diarrhea 12/13/2019 Egg yolks Sulfa Antibiotics Other (Please comment) 2023 Upset stomach documented as of this encounter (statuses as of 05/20/2024) Medications Cholecalciferol 1000 UNITS Capsule Take 1 Capsule by mouth in the morning. 30 Cap 3 12/01/19 16 Active vitamin e (AQUASOL E) 400 UNIT Capsule Take 1 Capsule by mouth in the morning. 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 07/07/2023 Overview [...] placed at [facility] Assessment & Plan (08/02/2023 12:43 PM EDT): [...] as of this encounter (statuses as of 05/20/2024) Resolved Problems Problem Noted Date Diagnosed Date [...] as of this encounter (statuses as of 05/20/2024) Immunizations Name Administration Dates Next Due COVID-19 mRNA, LNP-s, No Pre serve, 2-Dose Series (Moderna) 08/03/2020,06/28/2020 COVID-19, mRNA, LNP-s, PF, B ooster, 100mcg/0.5mg (Moderna) 09/16/2021,04/06/2021 Covid-19, Mrna, Lnp-s, Pf, B ivalent, 30 Mcg, IM, 12 yrs and above ([employer]) 05/19/2022 Hepatitis B, 20+ yrs 04/24/2017,11/16/2016,10/06 Pneumococcal [...] 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 Medication Therapy Disease Management [facility] - Diabetes Management Progress Note Paramjit Limon, identified by name and date of , is a 74 year old male being seen for diabetes management/education. Patient presents for return diabetic visit. DIABETES: Current diabetic medications: Lantus 12 units daily Ozempic 2 mg weekly - Sundays Medication Injection Site: Abdomen Lifestyle: Diet: unchanged Glucose Review/SMBG: Readings obtained from patient device Hypoglycemia: Does your blood sugar go below 70 mg/dL? No Hyperglycemia symptoms present: none Recent Labs Units 02/01/24 1050 12/31/23 1649 07/08/23 0528 HEMOGLOBIN A1C - [facility] % 6.4* -- 7.1* HEMOGLOBIN, [id number] % -- 6.6* -- Recent Labs Units 05/08/24 0958 03/20/24 1113 03/17/24 0000 ESTIMATED GLOMERULAR FILTRATION RATE - [facility] mL/min 7* 4* 4* CREATININE - [facility] mg/dL 7.6* 11.4* 11.50* HYPERTENSION: Patient on ACEi/ARB: no, not using; BP trends low BP Readings from Last 3 Encounters: 05/17/24 132/92 05/08/24 126/86 04/30/24 100/60 Blood pressure at goal: yes HYPERLIPIDEMIA: Recent Labs Units 07/08/23 0528 04/03/23 1459 08/18/22 0826 LDL CHOLESTEROL (CALCULATED) - [facility] mg/dL 26 40 -- LDL CHOLESTEROL (DIRECT MEASURE) - [facility] mg/dL -- -- 64 Does patient have clinical ASCVD? Yes, is patient LDL less than 55 mg/dL? Yes HEALTH MAINTENANCE REVIEW: Health Maintenance Due Topic Date Due Adult Wellness Visit 01/10/2023 Influenza Vaccine (FLU shot) (1) 01/21/2024 COVID-19 Vaccine ( season) 2024 ASSESSMENT & PLAN: ICD-10-CM 1. Type 2 diabetes mellitus with hemoglobin A1c goal of less than or equal to 9.0% (HCC) E11.9 Considerations: Renal function Peritoneal dialysis every day ; started September 2022 after his stroke Elis 3 was supplied by [facility]-- sent new order to be fulfilled by [facility]. BG Readings - Blood sugars controlled. Having a hard time getting sensors from [facility]-- sent new order to be fulfilled by [facility]. Medications - Reviewed current regimen, patient is adherent to regimen. Tolerating well. No changesneeded. Diet, Exercise, Lifestyle - No significant lifestyle changes since last visit. Discussed with patient. Patient is agreeable to SMBG with Freestyle Elis 3 time(s) daily. Patient aware to contact clinic if any hypoglycemia before next visit. MEDICATION CHANGES: no change Diabetic Medications: Lantus 12 units daily Ozempic 2 mg weekly - Sundays HEALTH MAINTENANCE INTERVENTIONS: Labs: Up to Date Immunizations: Up to Date Foot Exam: Up to Date Eye Exam: Up to Date Annual Wellness Visit: due FOLLOW UP: Return to clinic in 6 months 11/19/2024 I spent a total of 20-29 minutes (exact time 25 mins) on the date of service in preparation, delivery, and documentation of the care provided to Paramjit Limon excluding any time spent in the performance of separately billed services. Tracey Bearden [facility] Clinical Pharmacist - Bone Char Operator Medication Therapy Management Clinic 05/20/2024, 10:13 AM documented in this encounter Plan of Treatment Upcoming Encounters Date Type Department Care Team (Latest Contact Info) Description 05/21/2024 3:15 PM EST Telemedicine Urology Lori Dohsi [address] [facility] [address] [place] [address] Zeferino Bah Jr., MD [address] [place] [address] 06/10/2024 4:00 PM EST [facility] Visit [facility] [place] [address] [place] [address] Yeni Kent, RN [address] [place] [address] 07/04/2024 11:00 AM EST Home Visit [facility] [place], [facility] [address] [place] [address] Barron Gallo PA-C [address] [place] [address] 07/11/2024 9:30 AM EST Office Visit [facility] [address] [facility], [place] [phone] Agatha Beach DO [address] [facility] [place] [address] 07/15/2024 11:38 AM EST Hospital Encounter OR [facility], Operating Room, [facility] - 4th Floor [address] [place] [address] Andrew Isaac MD [address] [place] [address] 07/15/2024 11:38 AM EST - 07/15/2024 12:34 PM EST Surgery OR [facility], Operating Room, [facility] - 4th Floor [address] [place] [address] Andrew Isaac MD [address] [place] [address] COLONOSCOPY FLEXIBLE PROXIMAL DIAGNOSTIC 08/02/2024 11:00 AM EDT Office Visit Cardiology, [facility] [address] [place] [address] Emeka Sheets MD [address] [place] [address] 11/18/2024 4:00 PM EDT Office Visit Cardiology, [facility] [address] [place] [address] Emeka Sheets MD [address] [place] [address] 11/19/2024 11:30 AM EDT Office Visit Pharmacy, [address] [place] [phone] [address] [facility] [address] [place] [address] Scheduled Procedures Name Priority Associated Diagnoses Date/Ti [...] Visit Diagnoses Diagnosis 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 No * Full Code Date Activated Date [...] Power of Attor indira? No Care Teams Oil Well Shooter Relationship Specialty Start Date End Date Agatha Beach DO PCP - General Family Medicine 01/25/13 documented as of this encounter
--- OUTSIDE RECORDS SUMMARY | 2024-09-13 02:31 | External Medical Summary | Summary of Care ---
Author Name Unknown Organization [facility] Address [address] [facility] [place] [address] Phone [phone] Care Team Providers Care Cathead Worker Name Role Phone Jenny Beach DO Primary Care Provider Reason for Visit * Reason Onset Date Comments Medication Refill 05/30/2024 Encounter Details Date Type Department Care Team (Late st Contact Info) Description 05/30/[address] [facility] [address] [place] [phone] Jenny Beach DO [address] [place] [address] Right-sided lacunar infarction (HCC) Allergies Active Allergy Reactions Criticality Noted Date Comments Egg-Derived Products Diarrhea 12/13/2019 Egg yolks Sulfa Antibiotics Other (Please comment) 2023 Upset stomach documented as of this encounter (statuses as of 05/31/2024) Medications Cholecalciferol 1000 UNITS Capsule Take 1 [...] SITE DAILY 09/05/19 24 Active Droplet Pen [place] 32G X 4 MM (Insulin Pen Needle)Indicatio ns:Type 2 diabetes mellitus with hemoglobin A1c goal of less than or equal to 9.0% (HCC) use three times a day 300 Each 3 10/18/19 24 Active Carvedilol 12.5 MG Oral Tablet (Coreg)Indicatio ns: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 180 Tablet 3 11/02/19 24 Active Nitroglycerin 0.4 MG Sublingual Tablet Sublingual (Nitrostat)Indic ations: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iaapaayp artery of ewiiaapaayp heart with stable angina pectoris (HCC) Place 1 Tablet under the tongue every 5 minutes as needed for chest Pain. 75 Tablet 4 4 3:49 PM EST 11/20/19 24 Active Ozempic (2 MG/DOSE) 8 MG/3ML Subcutaneous Solution Pen-injector (Semaglutide (2 MG/DOSE)) Inject 2 mg under the skin once a week. 9 mL 1 10/30/202 4 6:31 AM EDT 12/26/19 24 Active Insulin [...] morning.. 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 07/07/2023 Overview [...] cardiology f/u Recently had stents placed at [facility] Assessment & Plan (08/02/2023 12:43 PM EDT): [...] as of this encounter (statuses as of 05/31/2024) Resolved Problems Problem Noted Date Diagnosed Date [...] as of this encounter (statuses as of 05/31/2024) Immunizations Name Administration Dates Next Due COVID-19 mRNA, LNP-s, No Pre serve, 2-Dose Series (Moderna) 08/03/2020,06/28/2020 COVID-19, mRNA, LNP-s, PF, B ooster, 100mcg/0.5mg (Moderna) 09/16/2021,04/06/2021 Covid-19, Mrna, Lnp-s, Pf, B ivalent, 30 Mcg, IM, 12 yrs and above ([employer] 05/19/2022 Hepatitis B, 20+ yrs 04/24/2017,11/16/2016,10/06 Pneumococcal [...] 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 In the morning.. Authorizing Provider: JENNY BEACH * Telephone Encounter - Juan Pablo Jarquin, [facility] - 05/31/2024 8:44 AM ESTPending Prescriptions: Disp Refills Clopidogrel Bisulfate 75 MG Oral Tablet (p*90 Tab*2 Sig: Take 1 Tablet by mouth in the morning. In the morning.. * Telephone Encounter - Juan Pablo Jarquin, [facility] - 05/31/2024 8:43 AM EST Unable to authorize medication refills for pended medication(s) at this time. Part of the protocol criteria used for refill authorization was not satisfied. Patient needs HGB and HCT within normal limits. HGB Date Value Ref Range Status 03/20/2024 10.1 (L) 14.0 - 16.8 g/dL Final 03/17/2024 9.5 (A) 13.7 - 17.5 GM/DL 02/01/2024 9.6 (L) 14.0 - 16.8 g/dL Final 07/18/2023 10.5 (L) 14.0 - 16.8 g/dL Final HCT Date Value Ref Range Status 03/20/2024 31.7 (L) 40.0 - 48.4 % Final 02/01/2024 29.6 (L) 40.0 - 48.4 % Final 07/18/2023 31.6 (L) 40.0 - 48.4 % Final 07/11/2023 26.4 (L) 40.0 - 48.4 % Final Please approve if appropriate. Thanks, Juan Pablo Jarquin Pharm.D. Clinical Pharmacist [facility] ([facility]) [phone] 05/31/2024, 8:43 AM Did you pend patient's preferred pharmacy and medication before forwarding?yes Pharmacy: [id number] [address] [facility] Pending Prescriptions: Disp Refills Clopidogrel Bisulfate 75 MG Oral Tablet (*90 Tab*2 Sig: Take 1 Tablet by mouth in the morning. In the morning.. Last Visit: 05/17/2024 (in office), Visit date not found (telemedicine) Next Visit: 07/11/2024 If no future appointments scheduled, and last appointment is greater than a year ago, please schedule patient for a follow-up appointment Last date the medication was ordered: 08/10/2023 Is this request for a controlled substance?No Urine Drug Screen:No results found. However, due to the size of the patient record, not all encounters were searched. Please check Results Review for a complete set of results. Patient Phone Numbers Labs: Lab Results Component Value Date/Time CREAT 7.6 (H) 05/08/2024 09:58 AM CREAT 11.50 (A) 03/17/2024 12:00 AM CREAT 6.94 (H) 01/02/2024 05:26 AM CREAT 2.1 (H) 04/23/2020 08:30 AM POTASSIUM 4.7 05/08/2024 09:58 AM POTASSIUM 4.5 03/17/2024 12:00 AM POTASSIUM 3.9 01/02/2024 05:26 AM POTASSIUM 3.5 04/23/2020 08:30 AM TSH 3.09 06/13/2016 11:09 AM LDL 26 07/08/2023 05:28 AM LDL 75 04/23/2020 08:30 AM LDL 10/17/2019 11:17 AM Uninterpretable, recommend direct LDL cholesterol testing. ALT 87 (H) 04/03/2023 02:59 PM ALT 36 02/24/2020 09:41 AM HGBA1C 6.4 (H) 02/01/2024 10:50 AM HGBA1C 6.6 (H) 12/31/2023 04:49 PM HGBA1C 8.7 (H) 04/23/2020 08:30 AM * Telephone Encounter - Sharon Barajas, ceramic coater machine - 05/31/2024 8:22 AM EST Did you pend patient's preferred pharmacy and medication before forwarding?yes Pharmacy: [id number] [address] [facility] Pending Prescriptions: Disp Refills Clopidogrel Bisulfate 75 MG Oral Tablet (*90 Tab*2 Sig: Take 1 Tablet by mouth in the morning. In the morning.. Last Visit: 05/17/2024 (in office), Visit date not found (telemedicine) Next Visit: 07/11/2024 If no future appointments scheduled, and last appointment is greater than a year ago, please schedule patient for a follow-up appointment Last date the medication was ordered: 08/10/2023 Is this request for a controlled substance?No Urine Drug Screen:No results found. However, due to the size of the patient record, not all encounters were searched. Please check Results Review for a complete set of results. Patient Phone Numbers Labs: Lab Results Component Value Date/Time CREAT 7.6 (H) 05/08/2024 09:58 AM CREAT 11.50 (A) 03/17/2024 12:00 AM CREAT 6.94 (H) 01/02/2024 05:26 AM CREAT 2.1 (H) 04/23/2020 08:30 AM POTASSIUM 4.7 05/08/2024 09:58 AM POTASSIUM 4.5 03/17/2024 12:00 AM POTASSIUM 3.9 01/02/2024 05:26 AM POTASSIUM 3.5 04/23/2020 08:30 AM TSH 3.09 06/13/2016 11:09 AM LDL 26 07/08/2023 05:28 AM LDL 75 04/23/2020 08:30 AM LDL 10/17/2019 11:17 AM Uninterpretable, recommend direct LDL cholesterol testing. ALT 87 (H) 04/03/2023 02:59 PM ALT 36 02/24/2020 09:41 AM HGBA1C 6.4 (H) 02/01/2024 10:50 AM HGBA1C 6.6 (H) 12/31/2023 04:49 PM HGBA1C 8.7 (H) 04/23/2020 08:30 AM documented in this encounter Plan of Treatment Upcoming Encounters Date Type Department Care Team (Latest Contact Info) Description 06/10/2024 4:00 PM EST [facility] [address] [place] [address] Yeni Kent RN [address] [place] [address] 07/09/2024 3:00 PM EST [facility] Visit [facility], [facility] [address] [place] [address] Barron Gallo PA-C [address] [place] [address] 07/11/2024 9:30 AM EST [facility] [place] [phone] Jenny Beach DO 226 [facility] [place] [address] 07/15/2024 11:38 AM EST Hospital Encounter OR [facility], Operating Room, [facility] - 4th Floor [address] [place] [address] [place] [phone] Andrew Isaac MD [address] [place] [address] 07/15/2024 11:38 AM EST - 07/15/2024 12:34 PM EST Surgery OR [facility], Operating Room, [facility] - 4th Floor [address] [facility] [place] [address] Andrew Isaac MD [address] [place] [address] COLONOSCOPY FLEXIBLE PROXIMAL DIAGNOSTIC 11/18/2024 11:30 AM EDT Imaging Radiology [facility] [address] [facility] [place] [address] 11/18/2024 4:00 PM EDT Office Visit Cardiology, [facility] [address] [facility] [place] [address] Emeka Sheets MD 132 [facility] [place] [address] 11/19/2024 11:30 AM EDT Office Visit Pharmacy, [facility] [address] [place] [phone] [address] [place] [phone] [place] [address] 11/25/2024 10:45 AM EDT Telemedicine Urology Lori Doshi [address] [place] [address] Zeferino Bah Jr., MD [address] [place] [address] Scheduled Procedures Name Priority Associated Diagnoses Date/Ti [...] Visit Diagnoses Diagnosis 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[place]ay[place] artery of [place]ay[place] heart with stable angina pectoris (HCC)- Primary Hypertensive chronic kidney disease with 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 (HCC) Type 2 diabetes mellitus with hemoglobin A1c goal of less than or equal to 9.0% (HCC) 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 No * Full Code Date Activated Date [...] Power of Attor indira? No Care Teams Cathead Worker Relationship Specialty Start Date End Date Jenny Beach DO PCP - General Family Medicine 01/25/13 documented as of this encounter
--- OUTSIDE RECORDS SUMMARY | 2024-09-13 02:31 | External Medical Summary | Summary of Care ---
Author Name Unknown Organization [facility] Address [address] [place] [facility] [place] [address] Phone [phone] Care Team Providers Care Grinding And Spraying Supervisor Name Role Phone Agatha Beach DO Primary Care Provider [phone] Encounter Details Date Type Department Care Team (Late st Contact Info) Description 05/20/2024 Orders Only [facility] [address] [place] [address] Agatha Beach DO [address] [place] [address] Allergies Active Allergy Reactions Criticality Noted Date [...] the morning. 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 file Not on karyn e documented as of this encounter Plan of Treatment Upcoming Encounters Date Type Department Care Team (Latest Contact Info) Description 05/20/2024 10:00 AM EST Office Visit [address] [place] [phone] [facility] [address] [facility] [place] [phone] 05/21/2024 3:15 PM EST Telemedicine Urology Tamia WilderLori [address] [facility] [address] [place] [address] Zeferino Bah Jr., MD [address] [place] [address] 06/10/2024 4:00 PM EST [facility] [address] [facility] [place] [address] Yeni Kent RN [address] [facility] [place] [address] 07/04/2024 11:00 AM EST [facility] Visit [facility] [address] [facility] [place] [address] Barron Gallo PA-C [address] [facility] [place] [address] 07/11/2024 9:30 AM EST Office [facility] [phone] Agatha Beach DO [facility] [address] 07/15/2024 11:38 AM EST Hospital Encounter OR [facility], Operating [facility], [facility] - [facility]th [facility] [place] [address] Andrew Isaac MD [address] [facility] [place] [address] 07/15/2024 11:38 AM EST - 07/15/2024 12:34 PM EST Surgery OR [facility], Operating Room, [facility] - 4th Floor [address] [place] [address] Andrew Isaac MD [address] [place] [address] COLONOSCOPY FLEXIBLE PROXIMAL DIAGNOSTIC 08/02/2024 11:00 AM EDT Office Visit [facility] [address] [place] [address] Emeka Sheets MD [address] [place] [address] 11/18/2024 4:00 PM EDT Office Visit [facility] [address] [place] [address] Emeka Sheets MD [address] [place] [address] Scheduled Procedures Name Priority Associated Diagnoses Date/Ti [...] Not on filedocumented as of this encounter Procedures Procedure Name Priority Date/Time Associated Diagnosis Comments XR CHEST 1 VIEW Routine 03/17/2024 documented in this encounter Results * XR CHEST 1 VIEW (03/17/2024) Anatomical Region Laterality Modality Chest Other 03/17/2024 us History Per Patient RADIOLOGY (RAD GENERAL) Wilda l Result documented in this encounter Advance Directives * [...] the patient have Health Care Power of Clinical Trial Coordinator? No * Full Code Date Activated Date [...] Power of Attor indira? No Care Teams Grinding And Spraying Supervisor Relationship Specialty Start Date End Date Agatha Beach DO PCP - General Family Medicine 01/25/13 documented as of this encounter
--- OUTSIDE RECORDS SUMMARY | 2024-09-13 02:31 | External Medical Summary | Summary of Care ---
Author Name Unknown Organization [facility] Address [address] [place] [address] Phone [phone] Care Team Providers Care Glass Cutter Helper Name Role Phone Agatha Beach Primary Care Provider [phone] Reason for Visit * Reason Onset Date Comments Appointment 05/30/2024 Encounter Details Date Type Department Care Team (Late st Contact Info) Description 05/30/2024 Telephone [facility] [place] [address] [place] [address] Yamileth Streeter, JACOB [address] [place] [address] Appointment (//) Allergies Active Allergy Reactions Criticality Noted Date Comments Egg-Derived Products Diarrhea 12/13/2019 Egg yolks Sulfa Antibiotics Other (Please comment) 2023 Upset stomach documented as of this encounter (statuses as of 05/30/2024) Medications Cholecalciferol 1000 UNITS Capsule Take 1 [...] SITE DAILY 09/05/19 24 Active Droplet Pen [place] 32G X 4 MM (Insulin Pen Needle)Indicatio ns:Type 2 diabetes mellitus with hemoglobin A1c goal of less than or equal to 9.0% (HCC) use three times a day 300 Each 3 10/18/19 24 Active Carvedilol 12.5 MG Oral Tablet (Coreg)Indicatio ns:Coronary artery disease of [place] artery of [place] [...] Tablet Sublingual (Nitrostat)Indic ations:Coronary artery disease of [place] artery of [place] [...] days. Supplied by home care delivered Active documented as of this encounter (statuses as of 05/30/2024) Active Problems Problem Noted Date Diagnosed Date [...] cardiology f/u Recently had stents placed at [facility] Assessment & Plan (08/02/2023 12:43 PM [...] as of this encounter (statuses as of 05/30/2024) Resolved Problems Problem Noted Date Diagnosed Date [...] as of this encounter (statuses as of 05/30/2024) Immunizations Name Administration Dates Next Due COVID-19 mRNA, LNP-s, No Pre serve, 2-Dose Series (Moderna) 08/03/2020,06/28/2020 COVID-19, mRNA, LNP-s, PF, B ooster, 100mcg/0.5mg (Moderna) 09/16/2021,04/06/2021 Covid-19, Mrna, Lnp-s, Pf, B ivalent, 30 Mcg, IM, 12 yrs and above ([email or web address]) 05/19/2022 Hepatitis B, 20+ yrs 04/24/2017,11/16/2016,10/06 Pneumococcal [...] 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 Not on file Not on karyn e documented as of this encounter Miscellaneous Notes * Telephone Encounter - Yamileth Streeter OSA - 05/30/2024 2:24 PM EST TT request to cx and rs the appt with Grayson Gallo on 07/04 I found 07/09@3 and called and was agreeable to the change documented in this encounter Plan of Treatment Upcoming Encounters Date Type Department Care Team (Latest Contact Info) Description 06/10/2024 4:00 PM EST [facility] Visit [facility] [address] [place] [address] Yeni Kent, RN [address] [place] [address] 07/09/2024 3:00 PM EST [facility] Visit [facility] [address] [place] [address] Barron Gallo PA-C [address] [place] [address] 07/11/2024 9:30 AM EST Office Visit [facility] [phone] Agatha Beach DO 226 [facility] [place] [address] 07/15/2024 11:38 AM EST Hospital Encounter OR [facility], Operating Room, [facility] - 4th Floor [address] [facility] [place] [phone] Andrew Isaac MD [address] [place] [address] 07/15/2024 11:38 AM EST - 07/15/2024 12:34 PM EST Surgery OR [facility], Operating Room, [facility] - 4th Floor [address] [facility] [place] [address] Andrew Isaac MD [address] [place] [address] COLONOSCOPY FLEXIBLE PROXIMAL DIAGNOSTIC 11/18/2024 11:30 AM EDT Imaging Radiology [facility] [address] [place] [address] 11/18/2024 4:00 PM EDT Office Visit Cardiology, [facility] [address] [place] [address] Emeka Sheets MD [address] [place] [address] 11/19/2024 11:30 AM EDT Office Visit Pharmacy, [address] [place] [phone] [address] [facility] [address] [facility] [place] [address] 11/25/2024 10:45 AM EDT Telemedicine Urology Lori Doshi [address] [place] [address] [place] [address] Zeferino Bah Jr., MD [address] [place] [address] Scheduled Procedures Name Priority Associated Diagnoses Date/Ti [...] the patient have Health Care Power of Auto Body Mechanic Apprentice? No * Full Code Date Activated Date [...] Power of Attor indira? No Care Teams Glass Cutter Helper Relationship Specialty Start Date End Date Agatha Beach DO PCP - General Family Medicine 01/25/13 documented as of this encounter
--- OUTSIDE RECORDS SUMMARY | 2024-09-13 02:32 | External Medical Summary | Summary of Care ---
Author Name Unknown Organization [facility] Address [address] [facility] [place] [address] Phone [phone] Care Team Providers Care Loan And Credit Manager Name Role Phone Agatha Beach DO Primary Care Provider [phone] Encounter Details Date Type Department Care Team (Late st Contact Info) Description 05/17/[address] [facility] [address] [facility] [place] [phone] Agatha Beach DO [address] [place] [address] Allergies Active Allergy Reactions Criticality Noted Date Comments Egg-Derived Products Diarrhea 12/13/2019 Egg yolks Sulfa Antibiotics Other (Please comment) 2023 Upset stomach documented as of this encounter (statuses as of 05/17/2024) Medications Cholecalciferol 1000 UNITS Capsule Take 1 Capsule by mouth in the morning. 30 Cap 3 12/01/19 16 Active vitamin e (AQUASOL E) 400 UNIT Capsule Take 1 Capsule by mouth in the morning. Active FreeStyle Elis 14 Day [place] DeviceIndication s:Type 2 diabetes mellitus with hemoglobin [...] SITE DAILY 09/05/19 24 Active Droplet Pen [place] 32G X 4 MM (Insulin Pen Needle)Indicatio ns:Type 2 diabetes mellitus with hemoglobin A1c goal of less than or equal to 9.0% (HCC) use three times a day 300 Each 3 10/18/19 24 Active Carvedilol 12.5 MG Oral Tablet (Coreg)Indicatio ns:Coronary artery disease of [place] artery of [place] heart with stable angina pectoris (HCC),HTN, goal below 140/90,Hypertens sarmad heart and renal disease, 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 180 Tablet 3 11/02/19 24 Active Nitroglycerin 0.4 MG Sublingual Tablet Sublingual (Nitrostat)Indic ations:Coronary artery disease of [place] artery of [place] heart with stable angina pectoris (HCC) Place [...] morning. 135 Tablet 3 04/30/20 24 Active Amoxicillin-Pot Clavulanate 875-125 MG Oral Tablet (Augmentin)Indic ations:Abrasion, leg w/ infection, left, initial encounter Take 1 Tablet by mouth in the morning and 1 Tablet before bedtime. Do all this for 10 days. 20 Tablet 05/08/20 24 024 Active documented as of this encounter (statuses as of 05/17/2024) Active Problems Problem Noted Date Diagnosed Date Aortic ectasia, abdominal 10/11/2023 Coronary artery disease of n ative artery of standing rock heart with stable angina pectoris 07/07/2023 Overview [...] cardiology f/u Recently had stents placed at [facility] Assessment & Plan (08/02/2023 12:43 PM [...] Statin Aspirin Additional Comments Has elis CGThompson Hemoglobin AIC Results: Lab Results Component Value [...] Intensity Statin Aspirin Additional Comments Has elis ROMERO History of hyperaldosteronism 04/10/2014 Dyslipidemia, goal LDL below 70 04/02/2013 Overview (09/21/2015): ICD-10 update of inactive term JACOB (obstructive sleep apnea) 05/18/2012 Overview (07/18/2017): BIPAP 04/26, suboptimal d/t intolerance [facility] Plus Oxygen HTN, goal below 140/90 04/23/2012 Gout documented as of this encounter (statuses as of 05/17/2024) Resolved Problems Problem Noted Date Diagnosed Date [...] as of this encounter (statuses as of 05/17/2024) Immunizations Name Administration Dates Next Due COVID-19 [...] 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 Spoke with Dr Beach she wants US to at both. documented in this encounter Plan of Treatment Upcoming Encounters Date Type Department Care Team (Latest Contact Info) Description 05/20/2024 10:00 AM EST [place] [address] [place] [phone] [address] [place] [phone] [facility] [place] [address] 05/21/2024 3:15 PM EST Telemedicine Urology Lori Doshi [address] [facility] [address] [place] [address] Zeferino Bah Jr., MD [address] [place] [address] 06/10/2024 4:00 PM EST [facility] [address] [place] [address] Yeni Kent RN [address] [place] [address] 07/04/2024 11:00 AM EST [facility] Visit [facility] [address] [place] [address] Barron Gallo PA-C [address] [place] [address] 07/11/2024 9:30 AM EST Office [place] [facility], [place] [address] [place] [phone] Agatha Beach, DO [address] [place] [address] 07/15/2024 11:46 AM EST [facility], [facility] - 4th Floor [address] [place] [address] Andrew Isaac MD [address] [place] [address] 07/15/2024 11:46 AM EST - 07/15/2024 12:42 PM EST Surgery [facility], Operating Room, [facility] - 4th Floor [address] [place] [address] Andrew Isaac MD [address] [place] [address] COLONOSCOPY FLEXIBLE PROXIMAL DIAGNOSTIC 08/02/2024 11:00 AM EDT Office Visit Cardiology, [facility] [address] [place] [address] Emeka Sheets MD [address] [place] [address] 11/18/2024 4:00 PM EDT [facility] [address] [place] [address] Emeka Sheets MD [address] [place] [address] Scheduled Procedures Name Priority Associated Diagnoses Date/Ti me COLONOSCOPY FLEXIBLE PROXIMAL DIAGNOSTIC Screen for colon cancer 07/15/2024 11:46 AM EST Health Maintenance Due Date Last Done Comments Sigmoidoscopy 1996 Colonoscopy 04/17/2022 04/17/2012, 04/17/2012 Adult Wellness Visit 01/10/2023 01/10/2022, 08/18/20 21 COVID-19 Vaccine (6 - 2024-25 season) 2024 05/19/2022, 09/16/2021, 04/06/2021, Additional history [...] the patient have Health Care Power of Except[employer] Teacher? No * Full Code Date Activated Date [...] Power of Attor indira? No Care Teams Loan And Credit Manager Relationship Specialty Start Date End Date Agatha Beach DO PCP - General Family Medicine 01/25/13 documented as of this encounter
--- OUTSIDE RECORDS SUMMARY | 2024-09-13 02:32 | External Medical Summary ---
Author Name Unknown Address Unknown Organization [id number]:LABORATORY [facility] - [address] [place] [address] Laboratory Report Ordering Provider Test Date Status CROW GALLO 05/08/2024 09:58:55 Final Observation Date Value Abnormality Reference (Units ) Status MYCODE SPECIMEN-SST 05/08/2024 09:58:55 Freezing of extracted DNA, whole blood and/or serum. Final Performing Location LAB[facility]ATORY [facility] - [address] [place] [address]
--- OUTSIDE RECORDS SUMMARY | 2024-09-13 02:32 | External Medical Summary | Summary of Care ---
Author Name Unknown Organization [facility] Address [address] [place] [facility] [place] [address] Phone [phone] Care Team Providers Care Senior Qa Engineer Name Role Phone Jenny Beach Primary Care Provider [phone] Reason for Visit * Reason Comments Follow Up Encounter Details Date Type Department Care Team (Late st Contact Info) Description 04/30/2024 10:30 AM EST Office Visit Cardiology, [facility] [address] [place] [address] Emeka Sheets MD [address] [place] [address] Coronary artery disease of grand [place] artery of [place] heart with stable angina pectoris ([facility]; ESRD (end stage renal disease) ([facility]); Dyslipidemia, goal LDL below 70 Allergies Active Allergy Reactions Criticality Noted Date Comments Egg-Derived Products Diarrhea 12/13/2019 Egg yolks Sulfa Antibiotics Other (Please comment) 2023 Upset stomach documented as of this encounter (statuses as of 04/30/2024) Medications Cholecalciferol 1000 UNITS Capsule Take 1 Capsule by mouth in the morning. 30 Cap 3 016 Active vitamin e (AQUASOL E) 400 UNIT Capsule Take 1 Capsule by mouth in the morning. Active FreeStyle Elis 14 Day [place] DeviceIndicatio ns:Type 2 diabetes mellitus with hemoglobin A1c goal of less than or equal to 9.0% (HCC) Use to test blood sugars every 8 hours as directed. Dx E11.9 1 Each 022 Active Iron Sucrose 20 MG/ML Intravenous Solution [...] every morning 90 Tablet 2 024 Active FreeStyle Elis 14 Day SensorIndicatio ns:Type 2 diabetes mellitus with hemoglobin A1c goal of less than or equal to 9.0% (HCC) Use as directed NO SUBSTITUTIONS 6 Each 3 024 Active Gentamicin Sulfate 0.1 % External Cream PUT ON EXIT SITE DAILY 024 Active Droplet Pen [place] 32G X 4 MM (Insulin Pen Needle)Indicati ons:Type 2 diabetes mellitus with hemoglobin A1c goal of less than or equal to 9.0% (HCC) use three times a day 300 Each 3 024 Active Carvedilol 12.5 MG Oral Tablet (Coreg)Indicati ons:Coronary artery disease of [place] tribes artery of [place] heart with stable angina pectoris (HCC),HTN, goal below 140/90,Hyperten sive heart and renal disease, 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 180 Tablet 3 Active Nitroglycerin 0.4 MG Sublingual Tablet Sublingual (Nitrostat)Delia cations:Coronar y artery disease of grand [place]onde tribes artery [...] mL 1 4 4:30 PM EDT Active FreeStyle Elis 3 Sensor Use as directed every 14 days. 2 Each 11 Active Isosorbide Mononitrate ER 60 MG Oral Tablet Extended Release 24 Hour (Imdur) Take 1.5 Tablets by mouth in the morning. 135 Tablet 3 Active Torsemide 100 MG Oral Tablet (Demadex) Take 1 Tablet by mouth. TWICE A WEEK (NON-DIALYSIS DAYS) 024 2023 Discontinued Isosorbide Mononitrate ER 60 MG Oral Tablet Extended Release 24 Hour (Imdur) Take 1 Tablet by mouth in the morning. 90 Tablet 3 024 2023 Discontinued documented as of this encounter (statuses as of 04/30/2024) Active Problems Problem Noted Date Diagnosed Date [...] cardiology f/u Recently had stents placed at [facility] Assessment & Plan (08/02/2023 12:43 [...] as of this encounter (statuses as of 04/30/2024) Resolved Problems Problem Noted Date Diagnosed Date [...] protocol #1 Acute pain of left knee 01/17/2017/05/2016 Hypercalcemia 06/10/2016 04/25/2019 CKD (chronic kidney disease) [...] as of this encounter (statuses as of 04/30/2024) Immunizations Name Administration Dates Next Due COVID-19 [...] 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 Not on karyn e documented as of this encounter Last Filed Vital Signs Vital Sign Reading Time Taken Comments Blood Pressure 100/60 04/30/2024 10:13 AM EST Pulse 70 04/30/2024 10:13 AM EST Temperature - - Respiratory Rate 14 04/30/2024 10:1 3 AM EST Oxygen Saturation - - Inhaled Oxygen Concentration - - Weight 109.9 kg (242 lb 4.8 oz) 024 10:13 AM EST Height - - Body Mass Index 33.79 07/10/2023 8:16 PM EST documented in this encounter Progress Notes * Emeka Sheets MD - 04/30/2024 10:30 AM EST April 30, 2024 Cardiology Follow Up Referring Provider: PCP: JENNY BEACH [address] [place], [place] [id number] Chief Complaint: Coronary artery disease with angina pectoris SUBJECTIVE: Paramjit Limon is a 73 year old year old male with ongoing [...] leg weakness Mild aortic stenosis per echo Mild left ventricular dysfunction with segmental wall motion abnormality distal LAD distribution, EF 45% Patient presents today in routine follow-up. He is accompanied by his who aids in history. Since last visit has resumed dialysis daily. Has occasional nitroglycerin use for chest pain consistent with angina. Symptoms with relief with nitroglycerin. No dizziness lightheadedness syncope or near syncope. Blood pressure controlled. No tachyarrhythmias. Current activities limited by back pain and back spasm. Does note anginal symptoms more pronounced when walking into the cold postprandially or after heavymeals Interventionalist service considering further investigation of the right coronary artery with planned coronary CTA A Complete Review of Systems is as [...] heart failure (HCC) Coronary artery disease of grand ronde tribes artery of grand ronde tribes heart with stable angina pectoris (HCC) Aortic ectasia, abdominal ([facility]) Review of patient's allergies indicates: Allergen Reactions [...] BY MOUTH EVERY MORNING 90 Tablet 3 Clopidogrel Bisulfate 75 MG Oral Tablet (pLAVix) take 1 tablet by mouth every morning 90 Tablet 2 Gentamicin Sulfate 0.1 % External Cream PUT ON EXIT SITE DAILY Carvedilol 12.5 MG Oral Tablet (Coreg) Take 1 Tablet by mouth in the morning and 1 Tablet before bedtime. 180 Tablet 3 Nitroglycerin 0.4 MG Sublingual Tablet Sublingual (Nitrostat) Place 1 Tablet under the tongue every5 minutes as needed for chest Pain. 75 Tablet 4 Ozempic (2 MG/DOSE) 8 MG/3ML Subcutaneous Solution Pen-injector (Semaglutide (2 MG/DOSE)) Inject 2 mg under the skin once a week. 9 mL 1 Insulin Glargine Solostar 100 UNIT/ML Subcutaneous Solution Pen-injector (Lantus SoloStar) Inject 12 Units under the skin in the morning. 15 mL 1 Isosorbide Mononitrate ER 60 MG Oral Tablet Extended Release 24 Hour (Imdur) Take 1 Tablet by mouthin the morning. 90 Tablet 3 FreeStyle Elis 14 Day [place] Device Use to test blood sugars every 8 hours as directed. Dx E11.9 1Each 0 FreeStyle Elis 14 Day Sensor Use as directed NO SUBSTITUTIONS 6 Each 3 Droplet Pen [place] 32G X 4 MM (Insulin Pen Needle) use three times a day 300 Each 3 FreeStyle Elis 3 Sensor Use as directed every 14 days. 2 Each 11 No current facility-administered medications for this visit. [...] 0919 hydrALAZINE (APRESOLINE) inj Once PRN Gina Gay, TIMEKEEPER 5 mg at 04/17/12 0935 OBJECTIVE/PHYSICAL EXAMINATION: BP 100/60 | Pulse 70 | Resp 14 | Wt 109.9 kg (242 lb 4.8 oz) | BMI 33.79 kg/m² | BSA 2.35 m² General: Obese, Age appropriate in no [...] 1-2+/4 Neuro: grossly normal exam Data: EKG today March 20, 2024 Normal sinus rhythm at 66 beats per minute with moderate voltage criteria for left hypertrophy T-wave inversion lateral leads Lipid Panel Results: Results for orders placed or performed during the hospital encounter of 07/07/23 LIPID PANEL WITHOUT DIRECT LDL Result Value Ref Range Triglycerides 192 (H) <=174 mg/dL Cholesterol 94 <200 mg/dL HDL Cholesterol 30 (L) >39 mg/dL Non-HDL Cholesterol 64 <=159 mg/dL LDL Cholesterol 26 <=129 mg/dL Results for orders placed or performed in visit on 08/18/22 LIPID PANEL WITH DIRECT LDL IF TG IS HIGH Result Value Ref Range Triglycerides 186 (H) <=174 mg/dL Cholesterol 145 <200 mg/dL HDL Cholesterol 42 >39 mg/dL Non-HDL Cholesterol 103 <=159 mg/dL 01/01/2024 cardiac catheterization and intervention Procedure(s) preformed: Coronary Angiography Left Heart Catheterization Percutaneous Coronary Intervention of the LAD and circumflex Intravascular Ultrasound Shockwave lithotripsy Rotational atherectomy Performing physician: Manny Cruz DO and Clement Loza DO Indication for procedure: Paramjit Limon is a 73 y.o. male with exertional chest discomfort for which he has to take more nitroglycerin recently. He was set up as a direct admission to have complex PCI. He is on peritoneal dialysis. Here today for planned intervention of the LAD and circumflex. Access: 8 [place] right femoral artery Coronary angiography: Left main coronary artery: Large-caliber vessel originating off the left cusp. Bifurcates into the LAD and circumflex. Extraluminal calcium present but no significant disease intraluminally. Left anterior descending artery: Large-caliber vessel stent in the anterior wall with severe mid 95% stenosis and distal 95% stenosis. There is additional disease within the apical portion of the LAD. First diagonal is large with mild disease. Left circumflex artery: Large-caliber vessel with severe ostial 95% stenosis and mid vessel 95% stenosis. OM1 has a 95% stenosis and is significantly calcified and tortuous. Right coronary artery: Not engaged today. Attempted with multiple catheters including AL-1, AL 2, JL 5, AL 3, 3D right. LV-EDP: 12 mmHg Ao: 116/62 (83) mmHg PCI details: Heparin was given for anticoagulation. The patient was previously loaded with aspirin and clopidogrel. Using a 7 [place] EBU 4.5 guider a run-through wire was advanced into the distal LAD with the aid of a microcatheter and exchanged out for a wiggle. Balloon dilatation performed with a 1.5 mm followed by a 2.5 mm balloon. IVUS demonstrated severe circumferential calcium extending throughout the mid to distal LAD. Decision made to perform shockwave lithotripsy with a 2.5 mm balloon for completion of 120 pulses. This was followed by a 3.0 mm NC. IVUS was now completed demonstrating cracking of the calcium throughout. Decision made to stent with 2 overlapping Clement ALYSSA (3.0 x 38 mm and 3.5 x 38 mm); postdilated throughout with a 3.0 mm NC and proximally with a 4.0 mm NC. Attention was now placed on the circumflex and OM. A run-through with the aid of a microcatheter was used to wire into the distal circumflex and into the OM1. Balloon dilatation into both branches performed with a 1.5 mm balloon. OM1 was severely calcified and did not well deliver ability of any additional balloons despite use of anchor balloon technique and guide extension. Decision made to do rotational atherectomy with a 1 5 bur into this branch but again secondary to tortuosity the bur got stuck in subsequently removed. At this time decision made to forego PCI of the OM1 additional balloon dilatation was performed with a 2.5 mm balloon throughout the circumflex followed by a 2.5 mm shockwave lithotripsy balloon for 50 pulses. This was followed by IVUS demonstrated severe circumferential and deep calcium. At this time decision made to stent with 2 overlapping George ALYSSA (2.5 x 38 mm and 3.5 x 26 mm); postdilated throughout with a 3.0 mm NC and proximal with a 4.0 mm NC. Repeat IVUS was attempted but secondary to tortuosity was unable to be readvanced. Patient tolerated the procedure well without any immediate complications. Final angiography revealed ARIELLE-3 flow with into the distal vessel without any evidence of dissection, perforation, thrombosis and 0% residual stenosis. LAD and circumflex Preprocedure flow: ARIELLE III Postprocedure flow: ARIELLE III OM1 Preprocedure flow: ARIELLE II Postprocedure flow: ARIELLE III Estimated Blood Loss: Minimal Specimens: None Impression: Successful IVUS guided shockwave lithotripsy assisted percutaneous coronary revascularization of the LAD with 2 overlapping George ALYSSA (3.0 x 38 mm and 3.5 x 38 mm); post dilated with a 3.0 mm NC throughout and proximally with a 4.0 mm NC. Successful IVUS guided shockwave lithotripsy and rotational atherectomy assisted percutaneous coronary revascularization of the OM back into circumflex with 2 overlapping George ALYSSA (2.5 x 38 mm and 3.5 x 26 mm); postdilated throughout with a 3.0 mm NC and proximal with a 4.0 mm NC. Balloon angioplasty of OM1 with a 1.5 mm and a 2.5 mm balloon. Echocardiogram April 04, 2024 The left ventricular [...] and mild LV systolic dysfunction now present. ASSESSMENT: 73 year old year old male With complex history as outlined above . Stress study demonstrated stress- induced ischemia and subsequent cardiac catheterization July 07, 2023 demonstrated severely calcified coronary arteries with proximal circumflex and LAD disease not amenable to surgical intervention. Underwent complex coronary intervention on January 01, 2024 Improvement postprocedure Acute ER visit [facility] on March 15, 2024 with chest and flank pain with significantly elevated troponin Currently with stable class 2 3 angina pectoris relieved by nitroglycerin. PLAN: 1. Severe calcific coronary artery disease status post coronary intervention of the left anterior descending and left circumflex January 01, 2024. Right coronary artery not able to be engaged or imaged Most recent echo suggests possible distal LAD occlusion. Functionally improved with class 2 3 angina pectoris relieved by nitroglycerin Agree with repeat CTA assess right coronary artery as well as distal LAD. If symptoms acutely worsened would consider repeat catheterization Discussed findings in detail with patient and Will recommend increasing isosorbide mononitrate to 90 mg per day assess for improvement in symptoms Continue carvedilol 12.5 mg twice per day, lipid reduction DISPOSITION: Routine follow-3 months though patient report any new symptoms in interim Emeka Sheets MD Cardiology, [address] [address] documented in this encounter Nursing Notes * Olimpia Dumont LPN - 04/30/2024 10:12 AM EST Examination Room: 14 Name: Paramjit Limon Date of : 1950 Reason for Visit: Follow-up Problems/Concerns: denies Interim Hosp(s): none Chest Pain/SOB: Chest pain yesterday, resolved with 1 nitro tab, denies SOB MyChart Discussed: ALREADY ACTIVE Patient was instructed [...] Department Care Team (Latest Contact Info) Description 05/10/2024 2:45 PM EST Imaging Radiology [facility] [address] [facility] [place] [address] 05/20/2024 10:00 AM EST Office Visit Pharmacy, М[facility]ина Silva [address] [facility] [place] [phone] Марина [facility] [address] [facility] [place] [address] 05/21/2024 3:15 PM EST Telemedicine Urology Lori Doshi [address] [facility] [address] [place] [address] Zeferino Bah Jr., MD [address] [place] [address] 06/10/2024 4:00 PM EST [facility] Visit [facility] [address] [place] [address] Yeni Kent, RN [address] [facility] [place] [address] 07/11/2024 9:30 AM EST Office Visit Family Practice, [place] [address] [facility] [place] [phone] Jenny Beach DO [address] [place] [address] 07/15/2024 11:46 AM EST [facility], [facility] - 4th Floor [address] [facility] [place] [phone] Andrew Isaac MD [address] [place] [address] 07/15/2024 11:46 AM EST - 07/15/2024 12:42 PM EST Surgery OR [facility], Operating Room, [facility] - 4th Floor [address] [facility] [place] [address] Andrew Isaac MD [address] [place] [address] COLONOSCOPY FLEXIBLE PROXIMAL DIAGNOSTIC 08/02/2024 11:00 AM EDT Office Visit [facility] [address] [place] [address] Emeka Sheets MD [address] [place] [address] 11/18/2024 4:00 PM EDT Office Visit [facility] [address] [place] [address] Emeka Sheets MD [address] [place] [address] Scheduled Procedures Name Priority Associated Diagnoses Date/Ti [...] Vaccine Completed 04/24/2017, 11/16/2016, 10/06/2016 Pneumococcal Vaccine: 65+ Years Completed 04/25/2019, 06/16/2016, 06/23/2012 Zoster Vaccines [...] Visit Diagnoses Diagnosis Coronary artery disease of grand ronde tribes artery of grand [place] tribes heart with stable angina pectoris (HCC)- Primary Hypertensive chronic kidney disease with 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 (HCC) Type 2 diabetes mellitus with hemoglobin A1c goal of less than or equal to 9.0% (HCC) 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) Advanced care planning/counseling discussion Other specified counseling Coronary artery disease of grand [place] tribes artery of [place] tribes heart with stable angina pectoris (HCC)- Primary Hypertensive chronic kidney disease with 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 (HCC) Type 2 diabetes mellitus with hemoglobin A1c goal of less than or equal to 9.0% (HCC) Coronary artery disease of grand [place] tribes artery of grand [place] tribes heart with stable angina pectoris (HCC)- Primary ESRD (end stage renal disease) (HCC) End stage renal disease Dyslipidemia, goal LDL below 70 Other and unspecified hyperlipidemia Screen for colon cancer Special screening for [...] patient have Health Care Power of Director Of Learning? No * Full Code Date Activated Date [...] of Attor indira? No Care Teams Senior Qa Engineer Relationship Specialty Start Date End Date Jenny Beach DO [address] [place] [address] PCP - General Family Medicine 01/25/13 documented as of this encounter
--- OUTSIDE RECORDS SUMMARY | 2024-09-13 02:32 | External Medical Summary ---
Author Name Unknown Address Unknown Organization K01:[facility] [place] [address] [place] [address] Laboratory Report Ordering Provider Test Date Status CROW GALLO 05/08/2024 09:58:55 Final Observation Date Value Abnormality Reference (Units ) Status MYCODE SPECIMEN-SST 05/08/2024 09:58:55 Freezing of extracted DNA, whole blood and/or serum. Final Performing Location [facility] [place] [address] [place] [address]
--- OUTSIDE RECORDS SUMMARY | 2024-09-13 02:32 | External Medical Summary | Summary of Care ---
Author Name Unknown Organization [facility] Address [address] [place] [address] Phone [phone] Care Team Providers Care Set Designer Name Role Phone Agatha Beach Primary Care Provider [phone] Reason for Visit * Reason Comments Outpatient Testing Encounter Details Date Type Department Care Team (Late st Contact Info) Description 05/08/2024 10:00 AM EST Laboratory Laboratory, [facility] [address] [place] [address] [place], Laboratory [address], [place] [id number] [employer] Other*[id number]; Hypertensive kidney disease with chronic kidney disease stage IV (HCC) Allergies Active Allergy Reactions Criticality Noted Date Comments Egg-Derived Products Diarrhea 12/13/2019 Egg yolks Sulfa Antibiotics Other (Please comment) 2023 Upset stomach documented as of this encounter (statuses as of 05/08/2024) Medications Cholecalciferol 1000 UNITS Capsule Take 1 Capsule by mouth in the morning. 30 Cap 3 12/01/19 16 Active vitamin e (AQUASOL E) 400 UNIT Capsule Take 1 Capsule by mouth in the morning. Active FreeStyle Elis 14 Day [place] DeviceIndication s:Type 2 diabetes mellitus with hemoglobin [...] SITE DAILY 09/05/19 24 Active Droplet Pen [place] 32G X 4 MM (Insulin Pen Needle)Indicatio ns:Type 2 diabetes mellitus with hemoglobin A1c goal of less than or equal to 9.0% (HCC) use three times a day 300 Each 3 10/18/19 24 Active Carvedilol 12.5 MG Oral Tablet (Coreg)Indicatio ns:Coronary artery disease of [place] artery of [place] heart with stable angina pectoris (HCC),HTN, goal [...] as of this encounter (statuses as of 05/08/2024) Active Problems Problem Noted Date Diagnosed Date [...] cardiology f/u Recently had stents placed at [facility] Assessment & Plan (08/02/2023 12:43 PM [...] as of this encounter (statuses as of 05/08/2024) Resolved Problems Problem Noted Date Diagnosed Date [...] as of this encounter (statuses as of 05/08/2024) Immunizations Name Administration Dates Next Due COVID-19 mRNA, LNP-s, No Pre serve, 2-Dose Series (Moderna) 08/03/2020,06/28/2020 COVID-19, mRNA, LNP-s, PF, B ooster, 100mcg/0.5mg (Moderna) 09/16/2021,04/06/2021 Covid-19, Mrna, Lnp-s, Pf, B ivalent, 30 Mcg, IM, 12 yrs and above (Locality) 05/19/2022 Hepatitis B, 20+ yrs 04/24/2017,11/16/2016,10/06 Pneumococcal [...] 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 Not on file Not on karyn e documented as of this encounter Plan of Treatment Upcoming Encounters Date Type Department Care Team (Latest Contact Info) Description 05/10/2024 2:45 PM EST Imaging Radiology [address] [place] [address] 05/17/2024 12:30 PM EST Office Visit Family Practice, Марина Wilder [address] [facility] [place] [phone] Agatha Beach DO [address] [place] [address] 05/20/2024 10:00 AM EST Office Visit Pharmacy, Марина Silva [address] [place] [phone] [address]ина [address] [address] 05/21/2024 3:15 PM EST Telemedicine Urology Lori Doshi [address] [facility] [address] [place] [address] Zeferino Bah Jr., MD [address] [place] [address] 06/10/2024 4:00 PM EST [facility], [facility] [address] [place] [address] Yeni Kent RN [address] [place] [address] 07/04/2024 11:00 AM EST Home Visit [facility] [place], [facility] [address] [place] [address] Barron Gallo PA-C [address] [place] [address] 07/11/2024 9:30 AM EST Office Visit [facility] [place] [address] [facility] [address] [place] [phone] Agatha Beach DO [address] [place] [address] 07/15/2024 11:46 AM EST Hospital Encounter OR [facility], Operating Room, [facility] - 4th Floor [address] [facility] [place] [phone] Andrew Isaac MD [address] [place] [address] 07/15/2024 11:46 AM EST - 07/15/2024 12:42 PM EST Surgery OR [facility], Operating Room, [facility] - 4th Floor [address] [facility] [place] [phone] Andrew Isaac MD [address] [place] [address] COLONOSCOPY FLEXIBLE PROXIMAL DIAGNOSTIC 08/02/2024 11:00 AM EDT Office Visit Cardiology, [facility] [address] [place] [address] Emeka Sheets MD [address] [place] [address] 11/18/2024 4:00 PM EDT [facility] [address] [place] [address] Emeka Sheets MD [address] [place] [address] Pending Results Name Type Priority Associated Diagnoses Date /Time MYCODE SUBSEQUENT ADULT Lab Routine [employer] Other*[id number] 05/08/2024 9:58 AM EST BASIC METABOLIC PANEL Lab Routine Hypertensive kidney disease with chronic kidney disease stage IV (HCC) 05/08/2024 9:58 AM EST MYCODE SST1 Lab Routine [employer] Other*[id number] 05/08/2024 9:58 AM EST MYCODE SST2 Lab Routine [employer] Other*[id number] 05/08/2024 9:58 AM EST Scheduled Procedures Name Priority Associated Diagnoses Date/Ti [...] less than or equal to 9.0% (HCC) [employer] Other*[id number] Hypertensive kidney disease with chronic kidney disease [...] the patient have Health Care Power of Courier? No * Full Code Date Activated Date [...] Power of Attor indira? No Care Teams Set Designer Relationship Specialty Start Date End Date Agatha Beach DO [address] [place] [address] PCP - General Family Medicine 01/25/13 documented as of this encounter
--- OUTSIDE RECORDS SUMMARY | 2024-09-13 02:32 | External Medical Summary | Summary of Care ---
Author Name Unknown Organization [facility] Address [address] [place] [facility] [place] [address] Phone [phone] Care Team Providers Care Single Pass Soil Stabilizer Operator Name Role Phone ShasabaamarayvetteAgatha Ioana Primary Care Provider [phone] Encounter Details Date Type Department Care Team (Late st Contact Info) Description 05/07/2024 Orders Only PATIENT PORTAL DO NOT DELETE THIS DEPT USED BY [place] [id number] Allergies Active Allergy Reactions Criticality Noted Date Comments Egg-Derived Products Diarrhea 12/13/2019 Egg yolks Sulfa Antibiotics Other (Please comment) 2023 Upset stomach documented as of this encounter (statuses as of 05/07/2024) Medications Cholecalciferol 1000 UNITS Capsule Take 1 Capsule by mouth in the morning. 30 Cap 3 12/01/19 16 Active vitamin e (AQUASOL E) 400 UNIT Capsule Take 1 Capsule by mouth in the morning. Active FreeStyle Elis 14 Day [place] DeviceIndication s:Type 2 diabetes mellitus with hemoglobin A1c goal of less than or equal to 9.0% ([facility]) Use to test blood sugars every 8 [...] SITE DAILY 09/05/19 24 Active Droplet Pen [place] 32G X 4 MM (Insulin Pen Needle)Indicatio ns:Type 2 diabetes mellitus with hemoglobin A1c goal of less than or equal to 9.0% (HCC) use three times a day 300 Each 3 10/18/19 24 Active Carvedilol 12.5 MG Oral Tablet (Coreg)Indicatio ns:Coronary artery disease of [place] artery of [place] heart with stable angina pectoris (HCC),HTN, goal below 140/90,Hypertens sarmad heart and renal disease, 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 180 Tablet 3 11/02/19 24 Active Nitroglycerin 0.4 MG Sublingual Tablet Sublingual (Nitrostat)Indic ations:Coronary artery disease of [place] artery of [place] heart with stable angina pectoris (HCC) Place [...] as of this encounter (statuses as of 05/07/2024) Active Problems Problem Noted Date Diagnosed Date Aortic ectasia, abdominal 10/11/2023 Coronary artery disease of n ative artery of modoc heart with stable angina pectoris 07/07/2023 Overview [...] as of this encounter (statuses as of 05/07/2024) Resolved Problems Problem Noted Date Diagnosed Date [...] as of this encounter (statuses as of 05/07/2024) Immunizations Name Administration Dates Next Due COVID-19 mRNA, LNP-s, No Pre serve, 2-Dose Series ([employer]) 08/03/2020,06/28/2020 COVID-19, mRNA, LNP-s, PF, B ooster, 100mcg/0.5mg ([employer]) 09/16/2021,04/06/2021 Covid-19, Mrna, Lnp-s, Pf, B ivalent, 30 Mcg, IM, 12 yrs and above ([employer]) 05/19/2022 Hepatitis B, 20+ yrs 04/24/2017,11/16/2016,10/06 Pneumococcal [...] No 02/09/2024 Does the household have a [facility] source of income? 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 Not on karny e documented as of this encounter Plan of Treatment Upcoming Encounters Date Type Department Care Team (Latest Contact Info) Description 05/10/2024 2:45 PM EST Imaging Radiology [facility] [address] [place] [address] 05/17/2024 12:30 PM EST Office Visit Family Марина Fuchs [address] [place] [phone] Agatha Beach, DO [address] [place] [address] 05/20/2024 10:00 AM EST Office Visit Pharmacy, Марина Silva [address] [place] [address] Марина [facility] [address] [place] [facility] [place] [address] 05/21/2024 3:15 PM EST Telemedicine Urology Lori Doshi [address] [place] [address] Zeferino Bah Jr., MD [address] [place] [address] 06/10/2024 4:00 PM EST [facility] [address] Yeni Kent RN [facility] [address] 07/04/2024 11:00 AM EST [facility] 132 [facility] [place] [address] Barron Gallo PA-C [facility] [address] 07/11/2024 9:30 AM EST Office Visit Family Practice, Марина Wilder [address] [place] [phone] Agatha Beach DO [address] [place] [address] 07/15/2024 11:46 AM EST Hospital Encounter OR [facility], Operating Room, [facility] - 4th Floor [address] [place] [address] [place] [phone] Andrew Isaac MD [address] [place] [address] 07/15/2024 11:46 AM EST - 07/15/2024 12:42 PM EST Surgery OR GL, Operating Room, [facility] - 4th Floor [address] [place], [place] [address] Andrew Isaac MD [address] [place] [address] COLONOSCOPY FLEXIBLE PROXIMAL DIAGNOSTIC 08/02/2024 11:00 AM EDT Office Visit [facility] [address] [place] [address] Emeka Sheets MD 132 [place] [address] 11/18/2024 4:00 PM EDT Office Visit [facility] [address] [place] [address] Emeka Sheets MD [address] [place] [address] Scheduled Procedures Name Priority Associated Diagnoses Date/Ti [...] the patient have Health Care Power of Expenditure Requisition Clerk? No * Full Code Date Activated Date [...] Power of Attor indira? No Care Teams Single Pass Soil Stabilizer Operator Relationship Specialty Start Date End Date Agatha Beach DO [address] [facility] [place] [address] PCP - General Family Medicine 01/25/13 documented as of this encounter
--- OUTSIDE RECORDS SUMMARY | 2024-09-13 02:32 | External Medical Summary ---
Author Name Unknown Address Unknown Organization K01:[facility] [place] [facility] [place] [address] Laboratory Report Ordering Provider Test Date Status LINDA ALVARADO 05/08/2024 09:58:55 Final Observation Date Value Abnormality Reference (Units ) Status BUN 05/08/2024 09:58:55 51 Above high normal 6-20 (mg/dL) Final Creatinine 05/08/2024 09:58:55 7.6 Above high normal 0.6-1.2 (mg/dL) Final Glomerular filtration rate/1.73 sq M.predicted [Volume Rate/Area] in Serum, Plasma or Blood by Creatinine-based formula (CKD-EPI) 05/08/2024 09:58:55 7 Below low normal >=60 (mL/min) Final eGFR is calculated based on the CKD-EPI 2020 equation. Sodium 05/08/2024 09:58:55 143 135-146 (m mol/L) Final Potassium 05/08/2024 09:58:55 4.7 3.5-5.1 (m mol/L) Final Cl 05/08/2024 09:58:55 104 98-107 (mm ol/L) Final CO2 05/08/2024 09:58:55 25 22-32 (mmo l/L) Final Anion gap 05/08/2024 09:58:55 14 7-15 (mmol /L) Final Glucose 05/08/2024 09:58:55 184 Above high normal 70 -120 (mg/dL) Final Calcium 05/08/2024 09:58:55 9.2 8.4-10.2 ( mg/dL) Final Performing Location [facility] [place] [facility] [address] [place] [address]
--- OUTSIDE RECORDS SUMMARY | 2024-09-13 02:32 | External Medical Summary | Summary of Care ---
Author Name Unknown Organization [facility] Address [address] [place] [address] Phone [phone] Care Team Providers Care Director Of Vocational Guidance Name Role Phone Agatha Beach Primary Care Provider [phone] Reason for Visit * Reason Onset Date Comments Appointment 04/30/2024 Encounter Details Date Type Department Care Team (Late st Contact Info) Description 04/30/2024 Telephone [facility] [place] [facility] [address] [place], [place] [id number] Wing Cuevas, JACOB [address] [place] [address] Appointment Allergies Active Allergy Reactions Criticality Noted Date [...] the morning. 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 Spoke with and confirmed. documented in this encounter Plan of Treatment Upcoming Encounters Date Type Department Care Team (Latest Contact Info) Description 05/10/2024 2:45 PM EST Imaging Radiology [address] [place] [address] 05/20/2024 10:00 AM EST Office Visit Pharmacy, Марина Silva [address] [facility] [place] [phone] Марина [facility] [address] [facility] [place] [address] 05/21/2024 3:15 PM EST Telemedicine Urology Lori Doshi [address] [place] [address] Zeferino Bah Jr., MD [address] [place] [address] 06/10/2024 4:00 PM EST [facility], [facility] [address] [place] [address] Yeni Kent RN [address] [place] [address] 07/04/2024 11:00 AM EST Home Visit [facility], [facility] [address] [place] [address] Barron Gallo PA-C [address] [place] [address] 07/11/2024 9:30 AM EST Office Visit Family Practice, Марина Wilder [address] [place] [phone] Agatha Beach DO [address] [place] [address] 07/15/2024 11:46 AM EST Hospital Encounter OR [facility], Operating Room, [facility] - 4th Floor [address] [place] [phone] Andrew Isaac MD [address] [place] [address] 07/15/2024 11:46 AM EST - 07/15/2024 12:42 PM EST Surgery OR [facility], Operating Room, [facility] - 4th Floor [address] [place] [address] Andrew Isaac MD [address] [place] [address] COLONOSCOPY FLEXIBLE PROXIMAL DIAGNOSTIC 08/02/2024 11:00 AM EDT [facility] [address] [place] [address] Emeka Shetes MD [address] [place] [address] 11/18/2024 4:00 PM EDT [facility] [address] [place] [address] Emeka Sheets MD [address] [place] [address] Scheduled Procedures Name Priority Associated Diagnoses Date/Ti [...] the patient have Health Care Power of Structural Drafter? No * Full Code Date Activated Date [...] Attor indira? No Care Teams Director Of Vocational Guidance Relationship Specialty Start Date End Date Agatha Beach DO [address] [facility] [address] PCP - General Family Medicine 01/25/13 documented as of this encounter
--- OUTSIDE RECORDS SUMMARY | 2024-09-13 02:32 | External Medical Summary | Summary of Care ---
Author Name Unknown Organization [facility] Address [address] [place] [facility] [place] [address] Phone [phone] Care Team Providers Care Cone Runner Name Role Phone Agatha Beach Primary Care Provider Reason for Visit * Reason Comments Acute Open sore and lump o n L leg Scarped himself on the car door Now has a bump today Encounter Details Date Type Department Care Team (Late st Contact Info) Description 05/08/2024 9:20 AM EST Office Visit [facility] Марина Wilder [address] [place] [phone] Rosalina Pineda PA-C [address] [place] [address] Abrasion, leg w/ infection, left, initial encounter*; Type 2 diabetes mellitus with hemoglobin A1c goal of less than or equal to 9.0% ([facility]) Allergies Active Allergy Reactions Criticality [...] the morning. 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 Not on karyn e documented as of this encounter Last Filed Vital Signs Vital Sign Reading Time Taken Comments Blood Pressure 126/86 05/08/2024 9:18 AM EST Pulse 79 05/08/2024 9:18 AM EST Temperature 36.7 °C (98 °F) 05/08/2024 9:18 AM EST Respiratory Rate 18 05/08/2024 9:18 AM EST Oxygen Saturation 96% 05/08/2024 9:18 AM EST Inhaled Oxygen Concentration - - Weight 114.5 kg (252 lb 8 oz) 05/08/2024 9:18 AM EST Height 180.3 cm (5' 11") 05/08/2024 9:18 AM EST Body Mass Index 35.22 05/08/2024 9:18 AM EST documented in this encounter Progress Notes * Rosalina Pineda PA-C - 05/08/2024 9:30 AM EST Images from the original note were not included. History of Present Illness Paramjit Limon is a 73 year old male that presents for Acute (Open sore and lump on L leg /Scarpedhimself on the car door /Now has a bump today ) Here for a scrape on is leg This is his L lower leg He scraped it on the car door Has an open spot No pain Some swelling and now has al ump as of yesterday Not feeling ill. Last tetanus was 3. Physical Exam Vitals: 05/08/24 0918 Temp: 98 °F (36.7 °C) Pulse: 79 Resp: 18 SpO2: 96% BP: 126/86 BMI: 35.23 BP Readings from Last 3 Encounters: 05/08/24 126/86 04/30/24 100/60 04/29/24 128/74 Wt Readings from Last 3 Encounters: 05/08/24 252 lb 8 oz (114.5 kg) 04/30/24 242 lb 4.8 oz (109.9 kg) 03/20/24 243 lb (110.2 kg) BMI Readings from Last 3 Encounters: 05/08/24 35.22 kg/m² 04/30/24 33.79 kg/m² 03/20/24 33.89 kg/m² Ht Readings from Last 3 Encounters: 05/08/24 5' 11" (1.803 m) 07/10/23 5' 11" (1.803 m) 06/23/23 5' 11.26" (1.81 m) General: alert, healthy, and no distress Head: Normocephalic, No masses, lesions, tenderness or abnormalities Heart: regular rate & rhythm, no gallops, S-1 normal, and S-2 normal Lungs: chest symmetric with normal AP diameter, no chest deformities noted, no chest wall tenderness, lungs clear to auscultation Extremities: less than 2 second capillary refill, 1+ non pitting edema of the LLE Skin: skin color, texture, turgor are normal, L ant solorio approx [address] to the patella, he has a 1 cm abrasion, there is surrounding lymphangitis which forms a soft inflamed area approx3 cm X 3 cm, no streaking noted. No active discharge Assessment and Plan Abrasion, leg w/ infection, left, initial encounter (Primary) - Amoxicillin-Pot Clavulanate 875-125 MG Oral Tablet (Augmentin); Take 1 Tablet by mouth in the morning and 1 Tablet before bedtime. Do all this for 10 days. Type 2 diabetes mellitus with hemoglobin A1c goal of less than or equal to 9.0% ([facility]) - well controlled Hemoglobin AIC Results: Lab Results Component Value Date/Time HEMOGLOBIN A1C - [facility] 6.4 (H) 02/01/2024 10:50 AM HEMOGLOBIN A1C - [facility] 7.1 (H) 07/08/2023 05:28 AM HEMOGLOBIN A1C - [facility] 6.4 (H) 04/03/2023 02:59 PM HEMOGLOBIN A1C - [facility] 8.7 (H) 04/23/2020 08:30 AM HEMOGLOBIN A1C - [facility] 8.7 (H) 01/22/2020 10:04 AM HEMOGLOBIN A1C - [facility] 8.2 (H) 10/17/2019 11:15 AM Wrap-Up Elevated leg Time: I spent a total of 20-29 minutes (exact time 25 mins) on the date of service in preparation, delivery, and documentation of the care provided to Paramjit Limon excluding any time spent in the performance of separately billed services. Rosalina Pineda PA-C 05/08/2024 9:44 AM documented in this encounter Plan of Treatment Upcoming Encounters Date Type Department Care Team (Latest Contact Info) Description 05/10/2024 2:45 PM EST Imaging Radiology [address] [place] [address] 05/17/2024 12:30 PM EST Office [facility], [place] [address] [place] [phone] Agatha Beach DO [address] [place] [address] 05/20/2024 10:00 AM EST Office Visit Pharmacy, Марина Silva [address] [place] [phone] [address] [place] [address] 05/21/2024 3:15 PM EST Telemedicine Urology Lori Doshi [address] Silva [facility] [address] [place] [address] Zeferino Bah Jr., MD [address] [place] [address] 06/10/2024 4:00 PM EST [facility] [address] [place] [address] Yeni Kent, RN [address] [place] [address] 07/04/2024 11:00 AM EST [facility], [facility] [address] [place] [address] Barron Gallo PA-C [address] [place] [address] 07/11/2024 9:30 AM EST Office Visit [facility] [address] [facility] [place] [phone] Agatha Beach DO [facility] [place] [address] 07/15/2024 11:46 AM EST Hospital Encounter [facility], Operating Room, [facility] - 4th Floor [address] [place] [address] Andrew Isaac MD [address] [place] [address] 07/15/2024 11:46 AM EST - 07/15/2024 12:42 PM EST Surgery OR [facility], Operating Room, 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)- Primary Hypertensive chronic kidney disease with 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 (HCC) Type 2 diabetes mellitus with hemoglobin A1c goal of less than or equal to 9.0% (HCC) 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) Advanced care planning/counseling discussion Other specified counseling 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 No * Full Code Date Activated Date [...] Power of Attor indira? No Care Teams Cone Runner Relationship Specialty Start Date End Date Agatha Beach DO [address] [place] [address] PCP - General Family Medicine 01/25/13 documented as of this encounter
--- OUTSIDE RECORDS SUMMARY | 2024-09-13 02:32 | External Medical Summary | Summary of Care ---
Author Name Unknown Organization [facility] Address [address] [facility] [place] [address] Phone [phone] Care Team Providers Care Motion Study Technician Name Role Phone Agatha Beach DO Primary Care Provider [phone] Reason for Visit * Reason Comments Emergency Department Follow-Up Patient i s here today for an ED follow up, states he has a scrap on his let leg he would also like checked today that has been ongoing for about 15 days. Patient states he was in the ED for possible SD, states he took nitroglycerin tabs and the chest pain seemed to diminish. Encounter Details Date Type Department Care Team (Late st Contact Info) Description 05/17/2024 12:30 PM EST Office Visit 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); HTN, goal below 140/90; Hypertensive kidney disease with chronic kidney disease [...] morning. Active FreeStyle Elis 14 Day [place] DeviceIndication s:Type 2 diabetes mellitus with hemoglobin A1c goal of less than or equal to 9.0% ([facility]) Use to test blood sugars every 8 [...] of less than or equal to 9.0% ([facility]) Use as directed NO SUBSTITUTIONS 6 Each 3 09/25/19 24 Active Gentamicin Sulfate 0.1 % External Cream PUT ON EXIT SITE DAILY 09/05/19 24 Active Droplet Pen [place] 32G X 4 MM (Insulin Pen Needle)Indicatio ns:Type 2 diabetes mellitus with hemoglobin A1c goal of less than or equal to 9.0% (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 Not on file Not on karyn e documented as of this encounter Last Filed Vital Signs Vital Sign Reading Time Taken Comments Blood Pressure 132/92 05/17/2024 1:11 PM EST Pulse 77 05/17/2024 1:11 PM EST Temperature 36.7 °C (98 °F) 05/17/2024 1:11 PM EST Respiratory Rate 16 05/17/2024 1:11 PM EST Oxygen Saturation 97% 05/17/2024 1:11 PM EST Inhaled Oxygen Concentration - - Weight 113.6 kg (250 lb 8 oz) 05/17/2024 1:11 PM EST Height 180.3 cm (5' 11") 05/17/2024 1:11 PM EST Body Mass Index 34.94 05/17/2024 1:11 PM EST documented in this encounter Progress Notes * Agatha Beach, DO - 05/17/2024 1:24 PM EST Subjective: Parajmit Limon is a 74 year old male. Chief Complaint Patient presents with Emergency Department Follow-Up Patient is here today for an ED follow up, states he has a scrap on his let leg he would also like checked today that has been ongoing for about 15 days. Patient states he was in the ED for possible SD, states he took nitroglycerin tabs and the chest pain seemed to diminish. HPI: 74 year old male here today for an acute follow up. Hit his leg about 3 weeks ago on the car door, and was seen and placed on augmentin and still has afew days left. The redness got better, but then the lump has gotten bigger. Has been there for 3 weeks. He is on plavix, for hx of Stroke. Not on coumadin. His cardiac issues started when he was getting pre op for renal transplant and stress test was abnormal and had cardiac cath which showed multi vessel disease and suggested medical management. He then went to [facility] for another opinion. He underwent cardiac cath and intervention in December and hadstent in LAD and circumflex. [facility] and may need further intervention. He had ER admission [facility] for chest pain, elevated trop and echo showed EF of 46 % and large sized apical septal anteroseptal inferior wall motion abnormality He has an appt early May for a repeat CTA to look at distal LAD and R coronary at [facility]. Dr Sheets last OV increased his imdur to 90 mg per day. He is tolerating this. In ER in Mar, and had dysuria and was treated for urine infection. He has chest pain occasionally, and uses nitro 0-3 times a day. In March he had a CT scan of his kidneys on the R side, RI hydronephrosis, follows with urology. Had a + cologuard and getting colonoscopy in June. PHM: Patient Active Problem List Diagnosis HTN, goal below 140/90 JACOB (obstructive sleep apnea) Dyslipidemia, goal LDL below 70 Gout Type 2 diabetes mellitus with hemoglobin A1c goal of less than or equal to 9.0% (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 30 Cap 3 vitamin e (AQUASOL E) 400 UNIT Capsule Take 1 Capsule by mouth in the morning. FreeStyle Elis 14 Day [place] Device Use to test blood sugars every 8 hours as directed. Dx E11.9 1Each 0 Iron Sucrose 20 MG/ML Intravenous Solution Administer [...] by mouth every morning 90 Tablet 2 FreeStyle Elis 14 Day Sensor Use as directed NO SUBSTITUTIONS 6 Each 3 Gentamicin Sulfate 0.1 % External Cream PUT ON EXIT SITE DAILY Droplet Pen [place] 32G X 4 MM (Insulin Pen Needle) use three times a day 300 Each 3 Carvedilol 12.5 MG Oral Tablet (Coreg) [...] directed every 14 days. 2 Each 11 Isosorbide Mononitrate ER 60 MG Oral Tablet Extended Release 24 Hour (Imdur) Take 1.5 Tablets by mouth in the morning. 135 Tablet 3 Amoxicillin-Pot Clavulanate 875-125 MG Oral Tablet (Augmentin) Take 1 Tablet by mouth in the morning and 1 Tablet before bedtime. Do all this for 10 days. 20 Tablet 0 No current facility-administered medications for this visit. Facility-Administered Medications Ordered in Other Visits Medication Dose Route Frequency Provider Last Rate Last Admin midazolam (VERSED) 2 MG/2ML inj Once PRN Gina Gay CRNA propofol (DIPRIVAN) 1 % bolus Once PRN Gina Gay CRNA 20 mg at 04/17/12 0935 metoprolol tartrate (LOPRESSOR) inj Once PRN Gina Gya CRNA 5 mg at 04/17/12 0919 hydrALAZINE (APRESOLINE) inj Once PRN Gina Gay CRNA 5 mg at 04/17/12 0935 Review of patient's allergies indicates: Allergen Reactions Egg-Derived Products Diarrhea Egg yolks Sulfa Antibiotics Other (Please comment) Upset stomach Objective: BP 132/92 (BP Site: Left Arm, BP Position: Sitting, BP Cuff Size: Regular) | Pulse 77 | Temp 98 °F(36.7 °C) (Tympanic) | Resp 16 | Ht 5' 11" (1.803 m) | Wt 250 lb 8 oz (113.6 kg) | SpO2 97% | BMI 34.94 kg/m² | BSA 2.39 m² Physical Exam: General: alert, healthy, and no distress Heart: regular rate & rhythm, no murmur, and no gallops Lungs: chest symmetric with normal AP diameter, no chest deformities noted, no chest wall tenderness, lungs clear to auscultation Abdomen: abdomen soft, non-tender, normal bowel sounds, and no masses or organomegaly Extremities: small abrasion left on the L solorio, and large lump on the lateral solorio area, slightly warm. Appears could be a hematoma. ASSESSMENT/PLAN: Pain and swelling of left lower leg (Primary) - VASC DUPLEX VENOUS LE UNILAT Stat scan to rule out clot. Could be hematoma. 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 Chronic kidney disease, stage 4 (severe) ([facility]) Peritoneal dialysis, back to daily. Type 2 diabetes mellitus with hemoglobin A1c goal of less than or equal to 9.0% (HCC) Dyslipidemia, goal LDL below 70 Diabetes mellitus with nephropathy (HCC) HTN, goal below 140/90 Stable. Hypertensive kidney disease with chronic kidney disease stage IV (HCC) Elevated Cr. Gets labs weekly at dialysis Agatha Beach DO documented in this encounter Nursing Notes * Asia Lucio LPN - 05/17/2024 1:15 PM EST The patient has been properly identified by confirmation of name and date of . Chief Complaint Patient presents with Emergency Department Follow-Up Patient is here today for an ED follow up, states he has a scrap on his let leg he would also like checked today that has been ongoing for about 15 days. Patient states he was in the ED for possible SD, states he took nitroglycerin tabs and the chest pain seemed to diminish. documented in this encounter Plan of Treatment Upcoming Encounters Date Type Department Care Team (Latest Contact Info) Description 05/20/2024 10:00 AM EST [facility] [place] [facility] [address] [facility] [place] [phone] [place] [address] 05/21/2024 3:15 PM EST Telemedicine Urology Lori oDshi [address] [facility] [address] [address] Zeferino Bah Jr., MD [address] [place] [address] 06/10/2024 4:00 PM EST [facility] Visit [facility] [place], [facility] [address] [address] Yeni Kent, RN [address] [place] [place] [address] 07/04/2024 11:00 AM EST Home Visit [facility] [place], [facility] [address] [address] Barron Gallo PA-C [address] [place] [address] 07/11/2024 9:30 AM EST Office Visit [address], [place] [phone] Agatha Beach DO [address] [facility], [place] [address] 07/15/2024 11:46 AM EST Hospital Encounter OR [facility], Operating Room, [facility] - 4th Floor [address] [facility] [phone] Andrew Isaac MD [address] [place] [address] 07/15/2024 11:46 AM EST - 07/15/2024 12:42 PM EST Surgery OR [facility], Operating Room, [facility] - 4th Floor [address] [facility] [place] [phone] Andrew Isaac MD [address] [place] [address] COLONOSCOPY FLEXIBLE PROXIMAL DIAGNOSTIC 08/02/2024 11:00 AM EDT Office Visit Cardiology, [facility] [address] [address] Emeka Sheets MD [address] [place] [address] 11/18/2024 4:00 PM EDT Office Visit Cardiology, [facility] [address] [address] [address] Emeka Sheets MD [address] [place] [address] Scheduled Orders Name Type Priority Associated Diagnoses Orde r Schedule VASC DUPLEX VENOUS LE UNILAT Medical Imaging STAT Pain and swelling of left lower leg Ordered: 05/17/2024 Scheduled Procedures Name Priority Associated Diagnoses Date/Ti [...] 04/25/2019, 06/16/2016, 06/23/2012 Zoster Vaccines Completed 04/24/2020, 09/06/2019, 06/14/2013 Albumin/Creatinine Ratio Discontinued 023, 04/27/2022, 08/11/2021, [...] Visit Diagnoses Diagnosis 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)- Primary Hypertensive chronic kidney disease with 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 (HCC) Type 2 diabetes mellitus with hemoglobin A1c goal of less than or equal to 9.0% (HCC) 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) Advanced care planning/counseling discussion Other specified counseling 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)- Primary Hypertensive chronic kidney disease with 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 (HCC) Type 2 diabetes mellitus with hemoglobin A1c goal of less than or equal to 9.0% (HCC) Pain and swelling of left lower leg- Primary 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 No * Full Code Date Activated Date [...] Power of Attor indira? No Care Teams Motion Study Technician Relationship Specialty Start Date End Date Agatha Beach DO PCP - General Family Medicine 01/25/13 documented as of this encounter
--- OUTSIDE RECORDS SUMMARY | 2024-09-13 02:33 | External Medical Summary | Summary of Care ---
Author Name Unknown Organization [facility] Address [address] [place] [facility] [place] [place] [address] Phone [phone] Care Team Providers Care Associate Dean Of Women Name Role Phone Agatha Beach Primary Care Provider [phone] Reason for Visit * Reason Onset Date Comments Test Results 04/09/2024 Encounter Details Date Type Department Care Team (Late st Contact Info) Description 04/09/2024 Telephone Cardiology, [facility] [address] [place] [address] Emeka Sheets MD [address] [place] [address] Test Results Allergies Active Allergy Reactions Criticality Noted Date Comments Egg-Derived Products Diarrhea 12/13/2019 Egg yolks Sulfa Antibiotics Other (Please comment) 2023 Upset stomach documented as of this encounter (statuses as of 04/12/2024) Medications Cholecalciferol 1000 UNITS Capsule Take 1 Capsule by mouth in the morning. 30 Cap 3 12/01/19 16 Active vitamin e (AQUASOL E) 400 UNIT Capsule Take 1 Capsule by mouth in the morning. Active FreeStyle Elis 14 Day [place] DeviceIndication s:Type 2 diabetes mellitus with hemoglobin [...] SITE DAILY 09/05/19 24 Active Droplet Pen [place] 32G X 4 MM (Insulin Pen Needle)Indicatio ns:Type 2 diabetes mellitus with hemoglobin A1c goal of less than or equal to 9.0% (HCC) use three times a day 300 Each 3 10/18/19 24 Active Carvedilol 12.5 MG Oral Tablet (Coreg)Indicatio ns:Coronary artery disease of [place] artery of [place] heart with stable angina pectoris (HCC),HTN, goal below 140/90,Hypertens sarmad heart and renal disease, 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 180 Tablet 3 11/02/19 24 Active Nitroglycerin 0.4 MG Sublingual Tablet Sublingual (Nitrostat)Indic ations:Coronary artery disease of [place] artery of [place] heart with stable angina pectoris (HCC) Place 1 Tablet under the tongue every 5 minutes as needed for chest Pain. 75 Tablet 4 02/05/2024 1:55 PM EDT 11/20/19 Active Torsemide 100 MG Oral Tablet (Demadex) Take 1 Tablet by mouth. TWICE A WEEK (NON-DIALYSIS DAYS) 11/30/19 24 Active Ozempic (2 MG/DOSE) 8 MG/3ML [...] mouth in the morning. 90 Tablet 3 03/20/20 24 Active FreeStyle Elis 3 Sensor Use as directed every 14 days. 2 Each 11 03/27/20 24 Active documented as of this encounter (statuses as of 04/12/2024) Active Problems Problem Noted Date Diagnosed Date Aortic ectasia, abdominal 10/11/2023 Coronary artery disease of n ative artery of [place] heart with stable angina pectoris 07/07/2023 Overview [...] f/u Recently had stents placed at [facility] Assessment & Plan (08/02/2023 12:43 PM [...] as of this encounter (statuses as of 04/12/2024) Resolved Problems Problem Noted Date Diagnosed Date [...] as of this encounter (statuses as of 04/12/2024) Immunizations Name Administration Dates Next Due COVID-19 mRNA, LNP-s, No Pre serve, 2-Dose Series (Moderna) 08/03/2020,06/28/2020 COVID-19, mRNA, LNP-s, PF, B ooster, 100mcg/0.5mg (Moderna) 09/16/2021,04/06/2021 Covid-19, Mrna, Lnp-s, Pf, B ivalent, 30 Mcg, IM, 12 yrs and above ([employer]) 05/19/2022 Hepatitis B, 20+ yrs 04/24/2017,11/16/2016,10/06 Pneumococcal [...] 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 * Telephone Encounter - Ramon Sanchez LPN - 04/11/2024 12:25 PM EST Sent patient another [employer] message to follow up. * Telephone Encounter - Ramon Sanchez LPN - 04/09/2024 10:47 AM EST Sent patient a [employer] message to make aware. ----- Message from Emeka Sheets MD sent at 04/09/2024 10:44 AM EST ----- Echocardiogram demonstrates wall motion abnormality to apex which is new in comparison to prior study of June 2023. This likely corresponds with acute hospitalization, elevated troponin consistent with recent myocardial infarction. Stay on same medication Keep upcoming appointment Seek emergent care with any recurrence of symptoms documented in this encounter Plan of Treatment Upcoming Encounters Date Type Department Care Team (Latest Contact Info) Description 04/25/2024 1:30 PM EST Office Visit Cardiology, [facility] [address] [address] Emeka Sheets MD [address] [place] [address] 04/29/2024 4:00 PM EST [facility] Visit [facility] [place], [facility] [address] [address] [address] Yeni Kent RN [address] [place] [place] [address] 05/10/2024 2:45 PM EST Imaging Radiology [address] [place] [address] 05/20/2024 10:00 AM EST Office Visit Pharmacy, [place] [address] [place] [facility] [place] [address] [facility] [address] [place] [address] 05/21/2024 3:15 PM EST Telemedicine Urology Lori Doshi [address] [place] [address] Zeferino Bah Jr., MD [address] [place] [address] 07/11/2024 9:30 AM EST Office Visit [facility] [address] [facility] [place] [phone] Agatha Beach [address] [place] [address] 07/15/2024 11:46 AM EST Hospital Encounter OR [facility], Operating Room, [facility] - 4th Floor [address] [facility] [place] [phone] Andrew Isaac MD [address] [place] [address] 07/15/2024 11:46 AM EST - 07/15/2024 12:42 PM EST Surgery OR [facility], Operating Room, [facility] - 4th Floor [address] [facility] [place] [phone] Andrew Isaac MD [address] [place] [address] COLONOSCOPY FLEXIBLE PROXIMAL DIAGNOSTIC Scheduled Procedures Name Priority Associated Diagnoses Date/Ti ny COLONOSCOPY FLEXIBLE PROXIMAL DIAGNOSTIC Screen for colon [...] the patient have Health Care Power of Binitrotoluene Operator? No * Full Code Date Activated [...] Power of Attor indira? No Care Teams Associate Dean Of Women Relationship Specialty Start Date End Date Agatha Beach DO [address] [place] [address] PCP - General Family Medicine 01/25/13 documented as of this encounter
--- OUTSIDE RECORDS SUMMARY | 2024-09-13 02:33 | External Medical Summary | Summary of Care ---
Author Name Unknown Organization [facility] Address [address] [place] [address] Phone [phone] Care Team Providers Care Shift Superintendent Name Role Phone Jenny Beach DO Primary Care Provider Reason for Visit * Reason Onset Date Comments Pre Cert/Prior Auth 03/27/2024 Freestyle li [place] 3 plus sensor Encounter Details Date Type Department Care Team (Late st Contact Info) Description 03/27/2024 Telephone [facility] [address] [place] [address] Jenny Beach DO [address] [place] [address] Pre Cert/Prior Auth (Freestyle elis 3 plu... Allergies Active Allergy Reactions Criticality Noted Date Comments Egg-Derived Products Diarrhea 12/13/2019 Egg yolks documented as of this encounter (statuses as of 04/03/2024) Medications Cholecalciferol 1000 UNITS Capsule Take 1 Capsule by mouth in the morning. 30 Cap 3 12/01/19 16 Active vitamin e (AQUASOL E) 400 UNIT Capsule Take 1 Capsule by mouth in the morning. Active FreeStyle Elis 14 Day [place] DeviceIndication s:Type 2 diabetes mellitus with hemoglobin [...] BY MOUTH EVERY DAY 90 Tablet 3 01/10/2024 10:53 AM EDT 07/17/19 24 025 Active Ezetimibe 10 MG Oral Tablet (Zetia)Indicatio ns:Dyslipidemia, goal LDL below 70 TAKE ONE TABLET BY MOUTH EVERY MORNING 90 Tablet 3 01/10/2024 10:53 AM EDT 07/17/19 24 025 Active Clopidogrel Bisulfate 75 [...] SITE DAILY 09/05/19 24 Active Droplet Pen [place] 32G X 4 MM (Insulin Pen Needle)Indicatio ns:Type 2 diabetes mellitus with hemoglobin A1c goal of less than or equal to 9.0% (HCC) use three times a day 300 Each 3 10/18/19 24 Active Carvedilol 12.5 MG Oral Tablet (Coreg)Indicatio ns: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 07/07/2023 Overview [...] cardiology f/u Recently had stents placed at [facility] Assessment & Plan (08/02/2023 12:43 [...] as of this encounter (statuses as of 04/03/2024) Resolved Problems Problem Noted Date Diagnosed Date [...] as of this encounter (statuses as of 04/03/2024) Immunizations Name Administration Dates Next Due COVID-19 mRNA, LNP-s, No Pre serve, 2-Dose Series (Moderna) 08/03/2020,06/28/2020 COVID-19, mRNA, LNP-s, PF, B ooster, 100mcg/0.5mg (Moderna) 09/16/2021,04/06/2021 Covid-19, Mrna, Lnp-s, Pf, B ivalent, 30 Mcg, IM, 12 yrs and above ([employer]) 05/19/2022 Hepatitis B, 20+ yrs 04/24/2017,11/16/2016,10/06 Pneumococcal [...] 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 * Addendum Note - Hawa Ziegler LPN - 03/27/2024 2:55 PM ESTAddended by: HAWA ZIEGLER on: 03/27/2024 02:55 PM Modules accepted: Orders * Telephone Encounter - Hawa Ziegler LPN - 03/27/2024 2:48 PM EST Dylan calling from [facility]. Instead of prior authorization, Freestyle elis 3 needs sent like a DME instead to [facility]. * Telephone Encounter - Vilma Hughes LPN - 03/27/2024 1:28 PM EST Prior auth started for Freestyle elis 3 plus sensor with [employer] EOC# [id number] * Telephone Encounter - Vilma Hughes LPN - 03/27/2024 1:27 PM EST documented in this encounter Plan of Treatment Upcoming Encounters Date Type Department Care Team (Late st Contact Info) Description 04/04/2024 1:00 PM EST Cardiac Studies Cardiac Studies, [facility] [address] [facility] [place] [address] 04/17/2024 11:45 AM EST Office Visit Urology Lori Doshi [address] [facility] [address] [place] [address] Zeferino Bah Jr., MD [address] [place] [address] 04/25/2024 1:30 PM EST Office Visit Cardiology, [facility] [address] [facility] [place] [address] Emeka Sheets MD [address] [place] [address] 04/29/2024 4:00 PM EST Home Visit [facility] [address] [facility] [place] [address] Yeni Kent RN [address] [facility] [address] 05/20/2024 10:00 AM EST Office Visit Pharmacy, [place] [address] [facility] [place] [address] [facility] [address] [place] [address] 07/11/2024 9:30 AM EST [facility] [address] 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 (HCC) Type 2 diabetes mellitus with hemoglobin A1c goal of less than or equal to 9.0% (HCC) 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) Advanced care planning/counseling discussion Other specified counseling 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 No * Full Code Date Activated Date [...] Power of Attor indira? No Care Teams Shift Superintendent Relationship Specialty Start Date End Date Jenny Beach DO [address] [place] [address] PCP - General Family Medicine 01/25/13 documented as of this encounter
--- OUTSIDE RECORDS SUMMARY | 2024-09-13 02:33 | External Medical Summary | Summary of Care ---
Author Name Unknown Organization [facility] Address [address] [place] [address] Phone [phone] Care Team Providers Care Icu Tech Name Role Phone Agatha Beach Primary Care Provider [phone] Reason for Visit * Reason Onset Date Comments Test Results 04/16/2024 Encounter Details Date Type Department Care Team (Late st Contact Info) Description 04/16/2024 Telephone Nephrology, [facility] Tran [address] [facility] [place] [address] Yoly Martinez MD [address] [place] [address] Test Results Allergies Active Allergy Reactions Criticality Noted Date Comments Egg-Derived Products Diarrhea 12/13/2019 Egg yolks Sulfa Antibiotics Other (Please comment) 2023 Upset stomach documented as of this encounter (statuses as of 04/16/2024) Medications Cholecalciferol 1000 UNITS Capsule Take 1 Capsule by mouth in the morning. 30 Cap 3 12/01/19 16 Active vitamin e (AQUASOL E) 400 UNIT Capsule Take 1 Capsule by mouth in the morning. 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 180 Tablet 3 11/02/19 24 Active Nitroglycerin 0.4 MG Sublingual Tablet Sublingual (Nitrostat)Indic ations:Coronary artery disease of [place] artery of [place] heart with stable angina pectoris (HCC) Place [...] as of this encounter (statuses as of 04/16/2024) Active Problems Problem Noted Date Diagnosed Date Aortic ectasia, abdominal 10/11/2023 Coronary artery disease of n ative artery of deering heart with stable angina pectoris 07/07/2023 Overview [...] cardiology f/u Recently had stents placed at [facility] Assessment & Plan (08/02/2023 12:43 PM [...] as of this encounter (statuses as of 04/16/2024) Resolved Problems Problem Noted Date Diagnosed Date [...] as of this encounter (statuses as of 04/16/2024) Immunizations Name Administration Dates Next Due COVID-19 mRNA, LNP-s, No Pre serve, 2-Dose Series ([employer]a) 08/03/2020,06/28/2020 COVID-19, mRNA, LNP-s, PF, B ooster, 100mcg/0.5mg ([employer]) 09/16/2021,04/06/2021 Covid-19, Mrna, Lnp-s, Pf, B ivalent, 30 Mcg, IM, 12 yrs and above ([employer]) 05/19/2022 Hepatitis B, 20+ yrs 04/24/2017,11/16/2016,10/06 Pneumococcal [...] 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 She states that he did see Dr Bah recently and he is doing some additional testing for further information. * Telephone Encounter - Dary Duckworth RN - 04/16/2024 12:42 PM EST ----- Message from Yoly Martinez MD sent at 04/16/2024 12:16 PM EST ----- 24 of limited utility in a dialysis patient. However there is concern for this patient developing kidney stones after starting peritoneal dialysis. 1.4 L urine output. This would not be acceptable for most stone patient's but for this dialysis patient that is acceptable, particularly given cardiac issues. Sodium intake approximately 1 g daily which is ideal. No hypercalciuria. His urinary citrate levelsare low. However supplementation of citrate involves also giving potassium which is not acceptable in ESRD for this patient with current potassium on dialysis 4.4 despite being on large torsemide dose daily. Suggest continued Urology follow-up and monitoring for possible kidney stone disease. At this time I see no potential metabolic interventions to lower kidney stone risk. Stress again that it is extremely unusual for a dialysis patient to develop kidney stones and note that no stones have been seen on imaging to date. Nephro nurse please update patient PCP and Urology, MARIANA Molina also sent documented in this encounter Plan of Treatment Upcoming Encounters Date Type Department Care Team (Latest Contact Info) Description 04/25/2024 1:30 PM EST Office Visit Cardiology, [facility] [address] [place] [address] Emeka Sheets MD [address] [place] [address] 04/29/2024 4:00 PM EST Home Visit [facility] at [facility] [address] [place] [address] Yeni Kent RN [address] [place] [address] 05/10/2024 2:45 PM EST Imaging Radiology [facility] [address] [place] [address] 05/20/2024 10:00 AM EST [facility] [place] [facility] [place] [address] [place] [phone] МаринаRust [address] [facility] [place] [address] 05/21/2024 3:15 PM EST Telemedicine Urology Lori Doshi [address] [facility] [address] [place] [address] Zeferino Bah Jr., MD [address] [place] [address] 07/11/2024 9:30 AM EST Office [place] [address] [id number] Agatha Beach DO [address] [facility] [place] [address] 07/15/2024 11:46 AM EST Hospital Encounter OR GL, Operating Room, [facility] - 4th Floor [address] [place] [phone] Andrew Isaac MD [address] [place] [address] 07/15/2024 11:46 AM EST - 07/15/2024 12:42 PM EST Surgery OR GL, Operating Room, [facility] - 4th Floor [address] [place] [phone] Andrew Isaac MD [address] [place] [address] COLONOSCOPY FLEXIBLE PROXIMAL DIAGNOSTIC Scheduled Procedures Name [...] the patient have Health Care Power of Die Press Operator? No * Full Code Date Activated [...] Power of Attor indira? No Care Teams Icu Tech Relationship Specialty Start Date End Date Agatha Beach DO [address] [place] [facility] [place] [address] PCP - General Family Medicine 01/25/13 documented as of this encounter
--- OUTSIDE RECORDS SUMMARY | 2024-09-13 02:33 | External Medical Summary | Summary of Care ---
Author Name Unknown Organization [facility] Address [address] [place] [address] Phone [phone] Care Team Providers Care Criminal Lawyer Name Role Phone Jenny Beach DO Primary Care Provider [phone] Reason for Referral * Precert (Within 10 days (routine)) - Authorized Specialty Diagnoses / Procedures Referred By Justino garcia Referred To Contact Radiology Diagnoses Hydronephrosis, right Right renal mass Procedures MRI KIDNEY W WO CONTRAST Zeferino Bah Jr., MD [address] [place] [address] Phone: tel: fax: Referral ID Status Reason Start Date Expiration Date V isits Requested Visits Authorized [id number] Authorized 04/17/2024 999 999 Reason for Visit * Reason Comments NEW PATIENT * Evaluate & Treat - Unlimited Visits (Within 10 days (routine)) - Authorized Specialty Diagnoses / Procedures Referred By Justino garcia Referred To Contact Urology Diagnoses Acute cystitis with hematuria Elevated prostate specific antigen (PSA) Jenny Beach DO [address] [place] [address] Phone: tel: fax: Referral ID Status Reason Start Date Expiration Date Visits Requested Visits Authorized [id number] Authorized Specialty Services Required 02/09/2024 999 [id number] Encounter Details Date Type Department Care Team (Late st Contact Info) Description 04/10/2024 10:30 AM EST Office Visit Urology Tamia WilderLori [address] [place] [address] Zeferino Bah Jr., MD [address] [place] [address] Elevated prostate specific antigen (PSA)*; Hematuria, microscopic; Hydronephrosis, right; Right renal mass; Bladder wall thickening Allergies Active Allergy Reactions Criticality Noted Date Comments Egg-Derived Products Diarrhea 12/13/2019 Egg yolks Sulfa Antibiotics Other (Please comment) 2023 Upset stomach documented as of this encounter (statuses as of 04/10/2024) Medications Cholecalciferol 1000 UNITS Capsule Take 1 Capsule by mouth in the morning. 30 Cap 3 12/01/19 16 Active vitamin e (AQUASOL E) 400 UNIT Capsule Take 1 Capsule by mouth in the morning. Active FreeStyle Elis 14 Day [place] DeviceIndication s:Type 2 diabetes mellitus with hemoglobin A1c goal of less than or equal to 9.0% ([facility]) Use to test blood sugars [...] SITE DAILY 09/05/19 24 Active Droplet Pen [place] 32G X 4 MM (Insulin Pen Needle)Indicatio ns:Type 2 diabetes mellitus with hemoglobin A1c goal of less than or equal to 9.0% (HCC) use three times a day 300 Each 3 10/18/19 24 Active Carvedilol 12.5 MG Oral Tablet (Coreg)Indicatio ns:Coronary artery disease of [place] artery of [place] heart with stable angina pectoris (HCC),HTN, goal below 140/90,Hypertens sarmad heart and renal disease, 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 180 Tablet 3 11/02/19 24 Active Nitroglycerin 0.4 MG Sublingual Tablet Sublingual (Nitrostat)Indic ations:Coronary artery disease of [place] artery of [place] heart with stable angina pectoris (HCC) Place [...] Glargine Solostar 100 UNIT/ML Subcutaneous Solution Pen-injector (Mimix BroadbandoStar) Inject 12 Units under the skin in the morning. 15 mL 1 03/19/2024 4:30 PM EDT 03/19/20 Active Isosorbide Mononitrate ER 60 MG Oral Tablet Extended Release 24 Hour (Imdur) Take 1 Tablet by mouth in the morning. 90 Tablet 3 03/20/20 Active FreeStyle Elis 3 Sensor Use as directed every 14 days. 2 Each 03/27/20 Active documented as of this encounter (statuses as of 04/10/2024) Active Problems Problem Noted Date Diagnosed Date Aortic ectasia, abdominal 10/11/2023 Coronary artery disease of n ative artery of [place] heart with stable angina pectoris 07/07/2023 Overview [...] cardiology f/u Recently had stents placed at [facility] Assessment & Plan (08/02/2023 12:43 [...] as of this encounter (statuses as of 04/10/2024) Resolved Problems Problem Noted Date Diagnosed Date [...] as of this encounter (statuses as of 04/10/2024) Immunizations Name Administration Dates Next Due COVID-19 [...] 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 U/A had 3-5 RBC. He has an elevated PSA but stable. He voids about a liter and a half daily. He has no difficultyvoiding no bleeding but rare burning. He also had right flank pain. The back pain resolved but he ma y have had another infection in March but we have no records to review but he was given antibiotic Augmentin for this episode. PSA Results: Lab Results Component Value Date/Time PSA - [facility] 5.90 (H) 02/01/2024 10:50 AM PSA - [facility] 5.94 (H) 04/03/2023 02:59 PM PSA - [facility] 3.59 03/25/2019 08:22 AM PSA - [facility] 2.57 04/20/2012 10:04 AM We discussed the PSA test. It can be used as a guide for prostate health but it is not a cancer specific test. It can be followed over time and changes such as rapid elevations may be a warning sign that requires further testing. Current recommendations are to offer screening for men under 70 and over 50. The option to screen other men is possible, but evidence may indicate that there is a more significant risk of harm. The potential harm can come from the biopsy done in response to an elevatedPSA, or from the complications of treatment of less aggressive cancers discovered as a result of the PSA test. Shared decision making is the best alternative. Non contrast CT report from [facility] reviewed from 03/17/24 reviewed showing right hydronephrosis with dilated right ureter no stones and a possible right lower pole mass/cyst 3.8 cm and possible adrenal mass 1.8 cm. US renal report from 02/02/24 showed IMPRESSION: 1. Simple cysts are seen within the kidneys, otherwise, the kidneys are unremarkable. 2. 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 3. There is mild diffuse bladder wall thickening, which may be related to under distension. Correlation with urinalysis is recommended to exclude the possibility of an acute cystitis. Current Outpatient Medications Medication Sig Dispense Refill Cholecalciferol 1000 UNITS Capsule Take 1 Capsule by mouth in the morning. 30 Cap 3 vitamin e (AQUASOL E) 400 UNIT Capsule Take 1 Capsule by mouth in the morning. Cardiovascular Provider Resource Holdingse 14 Day [place] Device Use to test blood sugars every [...] PUT ON EXIT SITE DAILY Droplet Pen [place] 32G X 4 MM (Insulin Pen Needle) use three times a day 300 Each 3 Carvedilol 12.5 MG Oral Tablet (Coreg) Take 1 Tablet by mouth in the morning and 1 Tablet before bedtime. 180 Tablet 3 Nitroglycerin 0.4 MG Sublingual Tablet Sublingual (Nitrostat) Place 1 Tablet under the tongue every5 minutes as needed for chest Pain. 75 Tablet 4 Torsemide 100 MG Oral Tablet (Demadex) Take 1 Tablet by mouth. TWICE A WEEK (NON-DIALYSIS DAYS) (Patient not taking: Reported on 03/20/2024) Ozempic (2 MG/DOSE) 8 MG/3ML Subcutaneous Solution [...] the morning. 90 Tablet 3 FreeStyle Elis 3 Sensor Use as [...] Sulfa Antibiotics Other (Please comment) Upset stomach Social History: Social History Tobacco Use Smoking status: Former Current packs/day: 0.00 Average packs/day: 1 pack/day for 18.0 years (18.0 ttl pk-yrs) Types: Cigarettes Start date: 1966 Quit date: 1984 Years since quittin.9 Passive exposure: Past Smokeless tobacco: Never Tobacco comments: quit in 1984 Substance Use Topics Alcohol use: Yes Comment: Very rare Vaping/E-Cigarette Use Vaping/E-Cigarette Use Never User Vaping/E-Cigarette Substances Vaping/E-Cigarette Devices Past Surgical History: Procedure Laterality Date COLONOSCOPY, DIAGNOSTIC (RECTUM) 04/17/2012 benign polyp repeat in 10 yrs CORONARY ANGIOGRAPHY W/LEFT HEART CATH Right 07/07/2023 CORONARY ANGIOGRAPHY W/LEFT HEART CATH performed by Tamia Balderrama MD at CARDIAC LABS [facility] INFORMATION Left 2018 L knee surgery. IR VENOUS SAMPLING 01/13/2014 VENOUS SAMPLING THROUGH CATHETER performed by Handy Richmond MD at RADIOLOGY [facility] LAP W/ADRENALECTOMY 02/03/2014 02/03/2014 LAPAROSCOPIC ADRENALECTOMY performed by John Pierce MD at [facility] LAPAROSCOPY, W/ INSERT INTRAPERITONEAL CATH N/A 12/27/2022 LAPAROSCOPIC INSERTION INTRAPERITONEAL CANNULA OR CATHETER performed by Farhat Pandya MD at OR [facility] MISCELLANEOUS ORDER ([facility] ONLY) 12/20/2009 Parathyroid gland removed, elevated calcium MISCELLANEOUS ORDER ([facility] ONLY) Sinus polypectomy, [place], [place], [place] VASECTOMY 05/22/1981 Patient Active Problem List Diagnosis HTN, goal [...] heart failure (HCC) Coronary artery disease of [place] artery of [place] heart with stable angina pectoris (HCC) Aortic ectasia, abdominal (HCC) Past Surgical History: no changes Past Medical History: no changes Patient's Family History: no changes GENERAL EXAM: Alert and oriented x3 and no acute distress ABDOMEN: negative, Abdomen soft, non-tender. BS normal, No masses, organomegaly, hernia RECTAL EXAM: normal seminal vesicles, no rectal masses, prostate 50 gm benign. GENITAL EXAM: MALE Testes Descended , Testes W/O Lesions, Penis W/O Lesions, Penis Circumcised, andScrotum Normal Impression/Plan: He has multiple issues to discuss and evaluate. His PSA is elevated and he has [...] the cystoscopy and possible right retrograde pyelogram. Zeferino Bah Jr, MD 10:28 AM 04/10/2024 documented in this encounter Nursing Notes * Sheron Martin LPN - 04/10/2024 10:26 AM EST New patient presents for evaluation of gross hematuria with cystitis and elevated PSA. States he was experiencing dysuria, gross hematuria and left flank pain. Was advised he likely had UTI so given antibiotic, Augmentin and everything cleared up. Denies any urinary symptoms currently. Was seen via TeleMed with [facility] for elevated PSA. Never follow up with them. PSA Results: Lab Results Component Value Date/Time PSA - [facility] 5.90 (H) 02/01/2024 10:50 AM PSA - [facility] 5.94 (H) 04/03/2023 02:59 PM PSA - [facility] 3.59 03/25/2019 08:22 AM PSA - [facility] 2.57 04/20/2012 10:04 AM documented in this encounter Plan of Treatment Upcoming Encounters Date Type Department Care Team (Late st Contact Info) Description 04/25/2024 1:30 PM EST Office Visit Cardiology, [facility] [address] [facility] [place] [address] Emeka Sheets MD [address] [facility] [place] [address] 04/29/2024 4:00 PM EST [facility] [address] [facility] [place] [address] Yeni Kent RN [address] [facility] [place] [address] 05/10/2024 2:45 PM EST Imaging Radiology [address] [facility] [place] [address] 05/20/2024 10:00 AM EST Office Visit Pharmacy, [place] [address] [facility] [place] [address] [facility] [address] [facility] [place] [address] 05/21/2024 3:15 PM EST Telemedicine Urology Lori Doshi [address] [facility] [address] [place] [address] Zeferino Bah Jr., MD [address] [place] [address] 07/11/2024 9:30 AM EST Office Visit [facility] [address] [place] [address] Jenny Beach, [address] [facility] [place] [address] Scheduled Orders Name Type Priority Associated Diagnoses Orde r Schedule MRI KIDNEY W WO CONTRAST Medical Imaging Routine Hydronephrosis, right Right renal mass Expected: 04/17/2024, Expires: 05/10/2025 Scheduled Procedures Name Priority Associated Diagnoses Date/Ti [...] Visit Diagnoses Diagnosis Coronary artery disease of [place] artery of [place] heart with stable angina pectoris (HCC)- Primary Hypertensive chronic kidney disease with 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 (HCC) Type 2 diabetes mellitus with hemoglobin A1c goal of less than or equal to 9.0% (HCC) 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) Advanced care planning/counseling discussion Other specified counseling Coronary artery disease of [place] artery of [place] heart with stable angina pectoris (HCC)- Primary Hypertensive chronic kidney disease with 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 (HCC) Type 2 diabetes mellitus with hemoglobin A1c goal of less than or equal to 9.0% (HCC) Elevated prostate specific antigen (PSA)- Primary Hematuria, microscopic Microscopic hematuria Hydronephrosis, right Hydronephrosis Right renal mass Unspecified disorder of kidney and ureter Bladder wall thickening Other specified disorders of bladder documented in this encounter Advance Directives * [...] the patient have Health Care Power of Certified Surgical First Assistant? No * Full Code Date Activated [...] Power of Attor indira? No Care Teams Criminal Lawyer Relationship Specialty Start Date End Date Jenny Beach DO [address] [place] [address] PCP - General Family Medicine 01/25/13 documented as of this encounter
--- OUTSIDE RECORDS SUMMARY | 2024-09-13 02:33 | External Medical Summary | Summary of Care ---
Author Name Unknown Organization [facility] Address [address] [place] [address] Phone [phone] Care Team Providers Care Appraisal Specialist Name Role Phone Agatha Beach Primary Care Provider Encounter Details Date Type Department Care Team (Late st Contact Info) Description 03/20/2024 Telephone Nephrology, [facility] Tran [address] [place] [address] Yoly Martinez MD [address] [place] [address] Allergies Active Allergy Reactions Criticality Noted Date Comments Egg-Derived Products Diarrhea 12/13/2019 Egg yolks documented as of this encounter (statuses as of 04/01/2024) Medications Cholecalciferol 1000 UNITS Capsule Take 1 Capsule by mouth in the morning. 30 Cap 3 12/01/19 16 Active vitamin e (AQUASOL E) 400 UNIT Capsule Take 1 Capsule by mouth in the morning. Active FreeStyle Elis 14 Day [place] DeviceIndication s:Type 2 diabetes mellitus with hemoglobin A1c goal of less than or equal to 9.0% ([facility]) Use to test blood sugars [...] SITE DAILY 09/05/19 24 Active Droplet Pen [place] 32G X 4 MM (Insulin Pen Needle)Indicatio ns:Type 2 diabetes mellitus with hemoglobin A1c goal of less than or equal to 9.0% (HCC) use three times a day 300 Each 3 10/18/19 24 Active Carvedilol 12.5 MG Oral Tablet (Coreg)Indicatio ns:Coronary artery disease of [place] artery of [place] heart with stable angina pectoris (HCC),HTN, goal below 140/90,Hypertens sarmad heart and renal disease, 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 180 Tablet 3 11/02/19 24 Active Nitroglycerin 0.4 MG Sublingual Tablet Sublingual (Nitrostat)Indic ations:Coronary artery disease of [place] artery of [place] heart with stable angina pectoris (HCC) Place 1 Tablet under the tongue every 5 minutes as needed for chest Pain. 75 Tablet 4 02/05/2024 1:55 PM EDT 11/20/19 Active Torsemide 100 MG Oral Tablet (Demadex) Take 1 Tablet by mouth. TWICE A WEEK (NON-DIALYSIS DAYS) 11/30/19 Active Ozempic (2 MG/DOSE) 8 MG/3ML Subcutaneous [...] morning. 90 Tablet 3 03/20/20 24 Active documented as of this encounter (statuses as of 04/01/2024) Active Problems Problem Noted Date Diagnosed Date Aortic ectasia, abdominal 10/11/2023 Coronary artery disease of n ative artery of [place] heart with stable angina pectoris 07/07/2023 Overview [...] cardiology f/u Recently had stents placed at [facility] Assessment & Plan (08/02/2023 12:43 PM [...] as of this encounter (statuses as of 04/01/2024) Resolved Problems Problem Noted Date Diagnosed Date [...] as of this encounter (statuses as of 04/01/2024) Immunizations Name Administration Dates Next Due COVID-19 mRNA, LNP-s, No Pre serve, 2-Dose Series (Moderna) 08/03/2020,06/28/2020 COVID-19, mRNA, LNP-s, PF, B ooster, 100mcg/0.5mg (Moderna) 09/16/2021,04/06/2021 Covid-19, Mrna, Lnp-s, Pf, B ivalent, 30 Mcg, IM, 12 yrs and above (Interview Rocket) 05/19/2022 Hepatitis B, 20+ yrs 04/24/2017,11/16/2016,10/06 Pneumococcal [...] 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 No prior h/o stone disease. Also w/ complex cardiac dz He has an episode of gross hematuria last month on 01/31 Renal u/s last month showed no obstruction; UA and urine cx w/o infection. U/S notable also for simple BL cysts, stable known L AML. Pt [facility] to [facility] ER 03/15/24 w/ c/o severe R flank pain, N/V and ongoing chest pain, worse over preceding 48 hrs and s/p multiple NTG In ER troponin greater than 4000, creatinine 11.1 with BUN of 100 ( he had not had HD on 03/14 per routine); CT abdomen with -distal R ureteral dilatation w/ periureteral stranding -adrenal gland 1.8 cm soft tissue density for which further imaging w/ CT/MRI recommended -3.8 cm R lower pole renal mass/cyst for which CT w/ con recommended -IMPRESSION > moderate R hydronephrosis w/ R perinephric stranding and thickened Gerota's fascia Jun 2023 CT a/p >> stable R adrenal mass 1.5 cm back to at least 2013; BL renal cysts, largest 3.6 cm R lower pole Today is the first I'm hearing about 03/15 ER visit. Pt saw cardiology today > cardiology w/ concerns for uremia, recommending 5 day weekly PD and TTE to evaluate for effusion and other. Dr Sheets started imdur Spoke to pt and by phone > pt denies flank pain now though had twinge this am; no N/V now though states his appetite is lower, some N at times. has not acc him to recent PD visits but tells me that since changing to 4 days weekly he's felt much more tired, less stamina, more frequent N. No drop in UOP at this time. PLAN -change back to 5 days weekly PD -keep appt w/ Dr Bah mid March and cont efforts to get seen sooner -if voiding sx/flank pain worsen, go to [facility] for eval -defer to urology to order f/u imaging as needed Yong Olmedo; SHAMA PEÑA documented in this encounter Plan of Treatment Upcoming Encounters Date Type Department Care Team (Late st Contact Info) Description 04/04/2024 1:00 PM EST Cardiac Studies Cardiac Studies, [facility] [address] [facility] [place] [address] 04/17/2024 11:45 AM EST Office Visit Urology Lori Doshi [address] [place] [address] Zeferino Bah Jr., MD [address] [place] [address] 04/25/2024 1:30 PM EST Office Visit Cardiology, [facility] [address] [facility] [place] [address] Emeka Sheets MD [address] [facility] [place] [address] 04/29/2024 4:00 PM EST Home Visit [facility] [address] [facility] [place] [address] Yeni Kent RN [address] [facility] [place] [address] 05/20/2024 10:00 AM EST [facility] [address] [place] [address] [facility] [address] [place] [address] 07/11/2024 9:30 AM EST Office Visit [facility] [address] [place] [address] Agatha Beach DO [address] [place] [address] Scheduled Procedures Name Priority Associated Diagnoses Date/Ti [...] the patient have Health Care Power of Vocational Trainer? No * Full Code Date Activated Date [...] Power of Attor indira? No Care Teams Appraisal Specialist Relationship Specialty Start Date End Date Agatha Beach DO [address] [place] [address] PCP - General Family Medicine 01/25/13 documented as of this encounter
--- OUTSIDE RECORDS SUMMARY | 2024-09-13 02:33 | External Medical Summary | Summary of Care ---
Author Name Unknown Organization [facility] Address [address] [facility] [address] Phone [phone] Care Team Providers Care Braille Operator Name Role Phone Agatha Beach Primary Care Provider [phone] Reason for Visit * Reason Onset Date Comments Test Results 04/09/2024 Encounter Details Date Type Department Care Team (Late st Contact Info) Description 04/09/2024 Telephone Cardiology, [facility] [address] [place] [address] Emeka Sheets MD [address] [place] [address] Test Results Allergies Active Allergy Reactions Criticality Noted Date Comments Egg-Derived Products Diarrhea 12/13/2019 Egg yolks Sulfa Antibiotics Other (Please comment) 2023 Upset stomach documented as of this encounter (statuses as of 04/11/2024) Medications Cholecalciferol 1000 UNITS Capsule Take 1 Capsule by mouth in the morning. 30 Cap 3 12/01/19 16 Active vitamin e (AQUASOL E) 400 UNIT Capsule Take 1 Capsule by mouth in the morning. Active FreeStyle Elis 14 Day [place] DeviceIndication s:Type 2 diabetes mellitus with hemoglobin [...] SITE DAILY 09/05/19 24 Active Droplet Pen [place] 32G X 4 MM (Insulin Pen Needle)Indicatio ns:Type 2 diabetes mellitus with hemoglobin A1c goal of less than or equal to 9.0% (HCC) use three times a day 300 Each 3 10/18/19 24 Active Carvedilol 12.5 MG Oral Tablet (Coreg)Indicatio ns:Coronary artery disease of [place] artery of [place] heart with stable angina pectoris (HCC),HTN, goal below 140/90,Hypertens sarmad heart and renal disease, 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 180 Tablet 3 11/02/19 24 Active Nitroglycerin 0.4 MG Sublingual Tablet Sublingual (Nitrostat)Indic ations:Coronary artery disease of [place] artery of [place] heart with stable angina pectoris (HCC) Place [...] as of this encounter (statuses as of 04/11/2024) Active Problems Problem Noted Date Diagnosed Date Aortic ectasia, abdominal 10/11/2023 Coronary artery disease of n ative artery of [place] heart with stable angina pectoris 07/07/2023 Overview [...] f/u Recently had stents placed at [facility] Assessment & Plan (08/02/2023 12:43 [...] as of this encounter (statuses as of 04/11/2024) Resolved Problems Problem Noted Date Diagnosed Date [...] as of this encounter (statuses as of 04/11/2024) Immunizations Name Administration Dates Next Due COVID-19 mRNA, LNP-s, No Pre serve, 2-Dose Series (Moderna) 08/03/2020,06/28/2020 COVID-19, mRNA, LNP-s, PF, B ooster, 100mcg/0.5mg (Moderna) 09/16/2021,04/06/2021 Covid-19, Mrna, Lnp-s, Pf, B ivalent, 30 Mcg, IM, 12 yrs and above (LiquidSpace) 05/19/2022 Hepatitis B, 20+ yrs 04/24/2017,11/16/2016,10/06 Pneumococcal [...] 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 * Telephone Encounter - Ramon Sanchez LPN - 04/09/2024 10:47 AM EST Sent patient a [employer] message to make aware. ----- Message from [...] 04/25/2024 1:30 PM EST Office Visit Cardiology, [facility] [address] [place] [address] Emeka Sheets MD [address] [place] [address] 04/29/2024 4:00 PM EST Home Visit [facility] [address] [place] [address] Yeni Kent RN [address] [place] [address] 05/10/2024 2:45 PM EST Imaging Radiology [address] [place] [address] 05/20/2024 10:00 AM EST Office [address] [address] [place], [facility] [address] 05/21/2024 3:15 PM EST Telemedicine Urology Tamia Wilder[address]ori [address] [facility] [address] [place] [address] Zeferino Bah Jr., MD [address] [place] [address] 07/11/2024 9:30 AM EST Office Visit [facility] [address] [facility] [phone] Agatha Beach DO [address] [place] [address] 07/15/2024 11:46 AM EST Hospital Encounter OR GL, Operating Room, [facility] - 4th Floor [address] [facility] [place] [address] Andrew Isaac MD [address] [place] [address] 07/15/2024 11:46 AM EST - 07/15/2024 12:42 PM EST Surgery OR GL, Operating Room, [facility] Floor [address] [facility] [place] [address] Andrew Isaac MD [address] [place] [address] COLONOSCOPY FLEXIBLE PROXIMAL DIAGNOSTIC Scheduled Procedures Name [...] the patient have Health Care Power of Liquor Commissioner? No * Full Code Date Activated Date [...] Power of Attor indira? No Care Teams Braille Operator Relationship Specialty Start Date End Date Agatha Beach DO [address] [place] [address] PCP - General Family Medicine 01/25/13 documented as of this encounter
--- OUTSIDE RECORDS SUMMARY | 2024-09-13 02:33 | External Medical Summary | Summary of Care ---
Author Name Unknown Organization [facility] Address [address] [facility] [place] [address] Phone [phone] Care Team Providers Care Cotton Stomper Name Role Phone MervatyvetteWilliama Ioana BELL Primary Care Provider [phone] Encounter Details Date Type Department Care Team (Late st Contact Info) Description 04/29/2024 4:00 PM EST [facility] [address] [place] [address] Yeni Kent, RN [address] [place] [address] Allergies Active Allergy Reactions Criticality Noted Date Comments Egg-Derived Products Diarrhea 12/13/2019 Egg yolks Sulfa Antibiotics Other (Please comment) 2023 Upset stomach documented as of this encounter (statuses as of 04/29/2024) Medications Cholecalciferol 1000 UNITS Capsule Take 1 Capsule by mouth in the morning. 30 Cap 3 12/01/19 16 Active vitamin e (AQUASOL E) 400 UNIT Capsule Take 1 Capsule by mouth in the morning. Active FreeStyle Elis 14 Day [place] DeviceIndication s:Type 2 diabetes mellitus with hemoglobin [...] SITE DAILY 09/05/19 24 Active Droplet Pen [place] 32G X 4 MM (Insulin Pen Needle)Indicatio ns:Type 2 diabetes mellitus with hemoglobin A1c goal of less than or equal to 9.0% (HCC) use three times a day 300 Each 3 10/18/19 24 Active Carvedilol 12.5 MG Oral Tablet (Coreg)Indicatio ns:Coronary artery disease of [place] artery of [place] heart with stable angina pectoris (HCC),HTN, goal below 140/90,Hypertens sarmad heart and renal disease, 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 180 Tablet 3 11/02/19 24 Active Nitroglycerin 0.4 MG Sublingual Tablet Sublingual (Nitrostat)Indic ations:Coronary artery disease of [place] artery of [place] heart with stable angina pectoris (HCC) Place 1 Tablet under the tongue every 5 minutes as needed for chest Pain. 75 Tablet 4 04/25/2024 3:49 PM EST 11/20/19 24 Active Torsemide 100 MG Oral [...] as of this encounter (statuses as of 04/29/2024) Active Problems Problem Noted Date Diagnosed Date Aortic ectasia, abdominal 10/11/2023 Coronary artery disease of n ative artery of [place] heart with stable angina pectoris 07/07/2023 Overview [...] cardiology f/u Recently had stents placed at [facility] Assessment & Plan (08/02/2023 12:43 PM [...] as of this encounter (statuses as of 04/29/2024) Resolved Problems Problem Noted Date Diagnosed Date [...] as of this encounter (statuses as of 04/29/2024) Immunizations Name Administration Dates Next Due COVID-19 mRNA, LNP-s, No Pre serve, 2-Dose Series (Moderna) 08/03/2020,06/28/2020 COVID-19, mRNA, LNP-s, PF, B ooster, 100mcg/0.5mg (Moderna) 09/16/2021,04/06/2021 Covid-19, Mrna, Lnp-s, Pf, B ivalent, 30 Mcg, IM, 12 yrs and above (Eventable) 05/19/2022 Hepatitis B, 20+ yrs 04/24/2017,11/16/2016,10/06 Pneumococcal [...] 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 Not on file Not on karyn e documented as of this encounter Last Filed Vital Signs Vital Sign Reading Time Taken Comments Blood Pressure 128/74 04/29/2024 3:34 PM EST Pulse 84 04/29/2024 3:34 PM EST Temperature 37.2 °C (98.9 °F) 04/29/2024 3:34 PM ES T Respiratory Rate 18 04/29/2024 3:34 PM EST Oxygen Saturation 97% 04/29/2024 3:34 PM EST Inhaled Oxygen Concentration - - Weight - - Height - - Body Mass Index - - documented in this encounter Progress Notes * Yeni Kent RN - 04/29/2024 4:00 PM EST Current Concerns: Was switched back to doing dialysis 7 days a week and reports he does feel better Had a ED visit and was started on Augmentin for UTI He reports this resolved and he has not had further issue with the frequency Does see a Urologist and is going to be having an MRI then cystoscopy and possible right retrograde pyelogram Had televisit with zeb today and next step is CT to further evaluate the heart and if RCA MANAGER AUTOMOTIVE can be completed Physical Exam: Physical Exam Constitutional: General: He [...] Systems Constitutional: Negative. HENT: Negative. Eyes: Negative. Cardiovascular: Negative. Gastrointestinal: Negative. Genitourinary: Negative. Musculoskeletal: Positive for arthralgias and gait problem. Skin: Negative. Psychiatric/Behavioral: Negative. Care Plan Goal Progress: Orders Placed: No orders of the defined types were placed in this encounter. Medications Given: Care Gaps: Care Gaps Care gaps closed this contact: Education;Plan of Care (POC) (04/29/24 1551) Type of education: Clinical/disease (04/29/24 1551) Type of plan of care (POC) care gap: Adjustment of plan of care (POC) and/or Integrated Care Plan (ICP);Education and review of exacerbation plan (04/29/24 1551) documented in this encounter Plan of Treatment Upcoming Encounters Date Type Department Care Team (Latest Contact Info) Description 04/30/2024 10:30 AM EST Office Visit Cardiology, [facility] [address] [place] [address] Emeka Sheets MD [address] [place] [address] 05/10/2024 2:45 PM EST Imaging Radiology [facility] [address] [place] [address] 05/20/2024 10:00 AM EST [facility] [address] [facility] [phone] Марина [facility] [address] [facility] [place] [address] 05/21/2024 3:15 PM EST Telemedicine [facility] [address] [place] [address] Zeferino Bah Jr., MD [address] [place] [address] 06/10/2024 4:00 PM EST [facility] [address] [place] [address] Yeni Kent RN [address] [place] [address] 07/11/2024 9:30 AM EST [facility] [address] [facility] [address] [place] [phone] Agatha Beach DO [address] [place] [address] 07/15/2024 11:46 AM EST Hospital Encounter OR [facility], Operating Room, [facility] - 4th Floor [address] [facility] [place] [phone] Andrew Isaac MD [address] [place] [address] 07/15/2024 11:46 AM EST - 07/15/2024 12:42 PM EST Surgery OR [facility], Operating Room, [facility] - 4th Floor [address] [place] [phone] Andrew Isaac MD [address] [place] [address] COLONOSCOPY FLEXIBLE PROXIMAL DIAGNOSTIC 11/18/2024 4:00 PM EDT Office Visit Cardiology, [facility] [address] [place] [address] Emeka Sheets MD [address] [place] [address] Scheduled Procedures Name Priority Associated Diagnoses Date/Ti [...] the patient have Health Care Power of Print Press Operator? No * Full Code Date [...] Power of Attor indira? No Care Teams Cotton Stomper Relationship Specialty Start Date End Date Agatha Beach DO [address] [place] [address] PCP - General Family Medicine 01/25/13 documented as of this encounter
--- OUTSIDE RECORDS SUMMARY | 2024-09-13 02:33 | External Medical Summary | Summary of Care ---
Author Name Unknown Organization [facility] Address [address] [place] [address] Phone [phone] Care Team Providers Care Furnace Maintenance Name Role Phone Agatha Beach Primary Care Provider [phone] Reason for Visit * Reason Onset Date Comments Test Results 04/09/2024 Encounter Details Date Type Department Care Team (Late st Contact Info) Description 04/09/2024 Telephone Cardiology, [facility] [address] [place] [address] Emeka Sheets MD [address] [place] [address] Test Results Allergies Active Allergy Reactions Criticality Noted Date Comments Egg-Derived Products Diarrhea 12/13/2019 Egg yolks documented as of this encounter (statuses as of 04/09/2024) Medications Cholecalciferol 1000 UNITS Capsule Take 1 Capsule by mouth in the morning. 30 Cap 3 12/01/19 16 Active vitamin e (AQUASOL E) 400 UNIT Capsule Take 1 Capsule by mouth in the morning. Active FreeStyle Elis 14 Day [place] DeviceIndication s:Type 2 diabetes mellitus with hemoglobin A1c goal of less than or equal to 9.0% ([facility]) Use to test blood sugars every 8 [...] SITE DAILY 09/05/19 24 Active Droplet Pen [place] 32G X 4 MM (Insulin Pen Needle)Indicatio ns:Type 2 diabetes mellitus with hemoglobin A1c goal of less than or equal to 9.0% (HCC) use three times a day 300 Each 3 10/18/19 24 Active Carvedilol 12.5 MG Oral Tablet (Coreg)Indicatio ns:Coronary artery disease of [place] artery of [place] heart with stable angina pectoris (HCC),HTN, goal below 140/90,Hypertens sarmad heart and renal disease, 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 180 Tablet 3 11/02/19 24 Active Nitroglycerin 0.4 MG Sublingual Tablet Sublingual (Nitrostat)Indic ations:Coronary artery disease of [place] artery of [place] heart with stable angina pectoris (HCC) Place [...] as of this encounter (statuses as of 04/09/2024) Active Problems Problem Noted Date Diagnosed Date Aortic ectasia, abdominal 10/11/2023 Coronary artery disease of n ative artery of [place] heart with stable angina pectoris 07/07/2023 Overview [...] cardiology f/u Recently had st[facility] placed [facility] Assessment & Plan (08/02/2023 12:43 PM EDT): [...] as of this encounter (statuses as of 04/09/2024) Resolved Problems Problem Noted Date Diagnosed Date [...] as of this encounter (statuses as of 04/09/2024) Immunizations Name Administration Dates Next Due COVID-19 mRNA, LNP-s, No Pre serve, 2-Dose Series (Moderna) 08/03/2020,06/28/2020 COVID-19, mRNA, LNP-s, PF, B ooster, 100mcg/0.5mg (Moderna) 09/16/2021,04/06/2021 Covid-19, Mrna, Lnp-s, Pf, B ivalent, 30 Mcg, IM, 12 yrs and above (ApeniMED) 05/19/2022 Hepatitis B, 20+ yrs 04/24/2017,11/16/2016,10/06 Pneumococcal [...] 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 ----- Message from [...] Care Team (Late st Contact Info) Description 04/17/2024 11:45 AM EST Office Visit Urology Lori Doshi [address] [facility] [address] [place] [address] Zeferino Bah Jr., MD [address] [place] [address] 04/25/2024 1:30 PM EST Office Visit Cardiology, [facility] [address] [place] [address] Emeka Sheets MD [address] [facility] [place] [address] 04/29/2024 4:00 PM EST Home Visit [facility] [address] [place] [address] Yeni Kent, RN 132 [facility] [place] [address] 05/20/2024 10:00 AM EST Office Visit Pharmacy, [address] [place] [address] [address] 07/11/2024 9:30 AM EST Office Visit [facility] [address] [place] [address] Agatha Beach, DO [address] [place] [address] Scheduled Procedures Name Priority Associated Diagnoses Date/Ti [...] 04/25/2019, 06/16/2016, 06/23/2012 Zoster Vaccines Completed 04/24/2020, 09/0 06/2019, 06/14/2013 Albumin/Creatinine Ratio Discontinued 023, 04/27/2022, [...] the patient have Health Care Power of Indian Nanny? No * Full Code Date Activated Date [...] Power of Attor indira? No Care Teams Furnace Maintenance Relationship Specialty Start Date End Date Agatha Beach DO [address] [place] [address] PCP - General Family Medicine 01/25/13 documented as of this encounter
--- OUTSIDE RECORDS SUMMARY | 2024-09-13 02:33 | External Medical Summary | Summary of Care ---
Author Name Unknown Organization [facility] Address [address] [place] [address] Phone [phone] Care Team Providers Care Arc Welding Machine Operator Name Role Phone Agatha Beach Primary Care Provider Encounter Details Date Type Department Care Team (Late st Contact Info) Description 03/27/2024 Telephone Nephrology, [facility] Tran [address] [place] [address] Yoly Martinez MD [address] [place] [address] Allergies Active Allergy Reactions Criticality Noted Date Comments Egg-Derived Products Diarrhea 12/13/2019 Egg yolks documented as of this encounter (statuses as of 04/01/2024) Medications Cholecalciferol 1000 UNITS Capsule Take 1 Capsule by mouth in the morning. 30 Cap 3 12/01/19 16 Active vitamin e (AQUASOL E) 400 UNIT Capsule Take 1 Capsule by mouth in the morning. Active FreeStyle Elis 14 Day [place] DeviceIndication s:Type 2 diabetes mellitus with hemoglobin A1c goal of less than or equal to 9.0% ([facility]) Use to test blood sugars every [...] SITE DAILY 09/05/19 24 Active Droplet Pen [place] 32G X 4 MM (Insulin Pen Needle)Indicatio ns:Type 2 diabetes mellitus with hemoglobin A1c goal of less than or equal to 9.0% (HCC) use three times a day 300 Each 3 10/18/19 24 Active Carvedilol 12.5 MG Oral Tablet (Coreg)Indicatio ns:Coronary artery disease of [place] artery of [place] heart with stable angina pectoris (HCC),HTN, goal below 140/90,Hypertens sarmad heart and renal disease, 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 Kidney stones. No stones seen on recent imaging though some R ureteral inflammation/residual obstructive changes. No prior h/o stones and seemsunusual to develop them now. He does have remote h/o parathyroidectomy for ? HPTH. At dialysis, serum calcium levels have actually been low and pt on meds that increase serum ca; phos has been uncontrolled; PTH has been wnl for a dialysis pt We are being asked to change his binders away from ca rich ones d/t stone concern. Recent urology eval for pt w/ Dr Bah deferred to later this month. Suggest -24 hr urine / urorisk -consider nuke med PTH scan if ongoing concern and full urology evaluation negative >>>dialysis team reinforcing w/ pt stone diet >> high fluid intake, low Na, low sugar and NOT to limit calcium or oxalate particularly. Yong Rodríguez documented in this encounter Plan of Treatment Upcoming Encounters Date Type Department Care Team (Late st Contact Info) Description 04/04/2024 1:00 PM EST Cardiac Studies Cardiac Studies, [facility] [address] [address] [address] 04/17/2024 11:45 AM EST Office Visit Urology Lori Doshi [address] [facility] [address] [place] [address] Zeferino Bah Jr., MD [address] [place] [address] 04/25/2024 1:30 PM EST Office Visit Cardiology, [facility] [address] [place] [address] Emeka Sheets MD [address] [place] [address] 04/29/2024 4:00 PM EST Home Visit [facility] [address] [place] [address] Yeni Kent, RN [address] [place] [address] 05/20/2024 10:00 AM EST Office Visit Pharmacy, [place] [address] [facility], [place] [address] Мариан [facility] [address] [facility], [place] [address] 07/11/2024 9:30 AM EST Office Visit Family [facility], [facility] [address] [facility] [address] Agatha Beach DO [address] [address] Pending Results Name Type Priority Associated Diagnoses Date /Time URORISK(R) PANEL Lab Routine Hematuria, unspecified type 03/29/2024 9:48 AM EST Scheduled Orders Name Type Priority Associated Diagnoses Orde r Schedule URORISK(R) PANEL Lab Routine Hematuria, unspecified type Expected: 03/27/2024, Expires: 03/27/2025 Scheduled Procedures Name Priority Associated Diagnoses Date/Ti [...] Visit Diagnoses Diagnosis Coronary artery disease of [place] artery of [place] heart with stable angina pectoris (HCC)- Primary Hypertensive chronic kidney disease with 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 (HCC) Type 2 diabetes mellitus with hemoglobin A1c goal of less than or equal to 9.0% (HCC) 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 No * Full Code Date Activated Date [...] Power of Attor indira? No Care Teams Arc Welding Machine Operator Relationship Specialty Start Date End Date Agatha Beach DO [address] [place] [address] PCP - General Family Medicine 01/25/13 documented as of this encounter
--- OUTSIDE RECORDS SUMMARY | 2024-09-13 02:34 | External Medical Summary | Summary of Care ---
Author Name Unknown Organization [facility] Address [address] [place] [address] Phone [phone] Care Team Providers Care Category Specialist Name Role Phone Agatha Beach DO Primary Care Provider [phone] Reason for Visit * Reason Onset Date Comments Pre Cert/Prior Auth 03/27/2024 Freestyle li ashley 3 plus sensor Encounter Details Date Type Department Care Team (Late st Contact Info) Description 03/27/2024 Telephone [place] [address] [place] [address] Agatha Beach DO [address] [place] [address] Pre Cert/Prior Auth (Freestyle elis 3 plu... Allergies Active Allergy Reactions Criticality Noted Date Comments Egg-Derived Products Diarrhea 12/13/2019 Egg yolks documented as of this encounter (statuses as of 03/27/2024) Medications Medication Sig Dispensed Refills Start Date End Date Status Cholecalciferol 1000 UNITS Capsule Take 1 Capsule by mouth in the morning. 30 Cap 3 12/01/2015 Active vitamin e (AQUASOL E) 400 UNIT Capsule Take 1 Capsule by mouth in the morning. Active FreeStyle Elis 14 Day [place] DeviceIndications: Type 2 diabetes mellitus with hemoglobin A1c goal of less than or equal to 9.0% (HCC) Use to test blood sugars every 8 hours as directed. Dx E11.9 1 Each 01/12/2022 Active Iron Sucrose 20 MG/ML Intravenous Solution Administer 200 mg intravenously every 14 days. Active Calcium Acetate (Phos Binder) 667 MG Oral Capsule (Phoslo) take 2 capsules by mouth with meals and take 1 capsule with SNACKS. MAX OF 8 CAPS/DAY 240 Capsule 02/22/2023 Active Aspirin 81 MG Oral Tablet Chewable Chew & swallow 1 Tablet by mouth every morning. 30 Tablet 11 07/11/2023 Active Atorvastatin Calcium 80 MG Oral Tablet (Lipitor)Indicatio ns:Hyperlipidemia with target LDL less than 70 TAKE ONE TABLET BY MOUTH EVERY DAY 90 Tablet 3 07/17/2023 5 Active Ezetimibe 10 MG Oral Tablet (Zetia)Indications :Dyslipidemia, goal LDL below 70 TAKE ONE TABLET BY MOUTH EVERY MORNING 90 Tablet 3 07/17/2023 5 Active Clopidogrel Bisulfate 75 MG Oral Tablet (pLAVix)Indication s:Right-sided lacunar infarction (HCC) take 1 tablet by mouth every morning 90 Tablet 2 08/10/2023 Active FreeStyle Elis 14 Day SensorIndications: Type 2 diabetes mellitus with hemoglobin A1c goal of less than or equal to 9.0% (HCC) Use as directed NO SUBSTITUTIONS 6 Each 3 09/25/2023 Active Gentamicin Sulfate 0.1 % External Cream PUT ON EXIT SITE DAILY 09/05/2023 Active Droplet Pen [place] 32G X 4 MM (Insulin Pen Needle)Indications :Type 2 diabetes mellitus with hemoglobin A1c goal of less than or equal to 9.0% (HCC) use three times a day 300 Each 3 10/18/2023 Active Carvedilol 12.5 MG Oral Tablet (Coreg)Indications :Coronary artery disease of [place] artery of [place] heart with stable angina pectoris (HCC),HTN, goal below 140/90,Hypertensiv e heart and renal disease, 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 180 Tablet 3 11/02/2023 Active Nitroglycerin 0.4 MG Sublingual Tablet Sublingual (Nitrostat)Indicat ions:Coronary artery disease of [place] artery of [place] heart with stable angina pectoris (HCC) Place 1 Tablet under the tongue every 5 minutes as needed for chest Pain. 75 Tablet 4 11/20/2023 Active Torsemide 100 MG Oral Tablet (Demadex) Take 1 Tablet by mouth. TWICE A WEEK (NON-DIALYSIS DAYS) 11/30/2023 Active Ozempic (2 MG/DOSE) 8 MG/3ML Subcutaneous Solution Pen-injector (Semaglutide (2 MG/DOSE)) Inject 2 mg under the skin once a week. 9 mL 1 12/26/2023 Active Insulin Glargine Solostar 100 UNIT/ML Subcutaneous Solution Pen-injector (Lantus SoloStar) Inject 12 Units under the skin in the morning. 15 mL 1 03/19/2024 Active Isosorbide Mononitrate ER 60 MG Oral Tablet Extended Release 24 Hour (Imdur) Take 1 Tablet by mouth in the morning. 90 Tablet 3 03/20/2024 Active FreeStyle Elis 3 Sensor Use as directed every 14 days. 2 Each 11 03/27/2024 Active documented as of this encounter (statuses as of 03/27/2024) Active Problems Problem Noted Date Diagnosed Date Aortic ectasia, abdominal 10/11/2023 Coronary artery disease of n ative artery of [place] heart with stable angina pectoris 07/07/2023 Overview: Left main is heavily calcified pLAD with [...] and OM back to the left circumflex Last Assessment & Plan: Continue cardiology f/u Recently had stents placed at [facility] Hypertensive chronic kidney disease with 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 06/23/2023 Last Assessment & Plan: Current CKD Stage: ESRD on dialysis "RED FLAG" symptoms: NO IDENTIFIED SYMPTOMS CKD Complications: CAD HTN Additional Comments Continues home peritoneal dialysis Hemiplegia and hemiparesis f ollowing cerebral infarction affecting left non-dominant side 06/23/2023 Last Assessment & Plan: Mild deficit Hypertensive heart and renal disease, [...] less than or equal to 9.0% 04/10/2014 Overview: ICD-10 update of inactive term Last Assessment & Plan: "RED FLAG" Diabetic symptoms: Confusion and Vision [...] - [facility] 8.2 (H) 10/17/2019 11:15 AM History of hyperaldosteronism 04/10/2014 Dyslipidemia, goal LDL below 70 04/02/2013 Overview: ICD-10 update of inactive term JACOB (obstructive sleep apnea) 05/18/2012 Overview: BIPAP 04/26, suboptimal d/t intolerance Care Plus Oxygen HTN, goal below 140/90 04/23/2012 Gout documented as of this encounter (statuses as of 03/27/2024) Resolved Problems Problem Noted Date Diagnosed Date [...] 09/01/2017 History of total adrenalectomy 04/10/2014 06/22/2018 Overview: left adrenalecotmy for hyperaldosteronism Hypokalemia 07/17/2013 04/25/2019 Hyperaldosteronism 07/17/2013 8 Type 2 diabetes mellitus wit h hemoglobin A1c goal of less than 7.0% 07/10/2013 04/10/2014 Overview: ICD-10 update of inactive term Microalbuminuria 07/10/2013 06/22/2018 H/O parathyroidectomy 04/17/20132020 Adrenal adenoma 04/02/2013 09/28/2018 Hypersomnia with sleep apnea 05/18/2012 07/31/2017 DM type 2, not at goal 04/23/201207/10 documented as of this encounter (statuses as of 03/27/2024) Immunizations Name Administration Dates Next Due COVID-19 [...] Assigned at Male 09/28/2018 9:39 AM EDT Gender Identity Male 09/28/2018 9:39 AM EDT Sexual Orientation Straight 09/28/2018 9: 39 AM EDT Job Start Date Occupation Industry Not on file Not on file Not on file documented as of this encounter Miscellaneous Notes * Addendum Note - Hawa Miranda LPN - 03/27/2024 2:55 PM ESTAddended by: HAWA MIRANDA on: 03/27/2024 02:55 PM Modules accepted: Orders * Telephone Encounter - Hawa Miranda LPN - 03/27/2024 2:48 PM EST Dylan calling from [facility]. Instead of prior authorization, Freestyle elis 3 needs sent like a DME instead to [facility]. * Telephone Encounter - Vilma Hughes LPN - 03/27/2024 1:28 PM EST Prior auth started for Freestyle elis 3 plus sensor with [employer] [place] EOC# [id number] * Telephone Encounter - Vilma Hughes LPN - 03/27/2024 1:27 PM EST documented in this encounter Plan of Treatment Upcoming Encounters Date Type Department Care Team (Late st Contact Info) Description 04/04/2024 1:00 PM EST Cardiac Studies Cardiac Studies, [facility] [address] [place] [id number] 04/17/2024 11:45 AM EST Office Visit Urology Lori Doshi Tamia Silva [address] [place] [address] Zeferino Bah Jr., MD [place] [address] 04/25/2024 1:30 PM EST Office Visit Cardiology, [facility] 132 [facility] [place] [address] Emeka Sheets MD [facility] [place] [address] 04/29/2024 4:00 PM EST [facility] [place] [address] Yeni Kent RN [address] [place] [address] 05/20/2024 10:00 AM EST Office Visit Pharmacy, [place] [address] [place] [address] [facility] [address] [place] [address] 07/11/2024 9:30 AM EST Office Visit Family [facility] [address] [place] [address] Agatha Beach, [address] [place] [address] Scheduled Procedures Name Priority Associated Diagnoses Date/Ti [...] the patient have Health Care Power of Marketing Director Assisted Living? No * Full Code Date Activated Date [...] Power of Attor indira? No Care Teams Category Specialist Relationship Specialty Start Date End Date Agatha Beach DO [address] [place] [facility] [place] [address] PCP - General Family Medicine 01/25/13 documented as of this encounter
--- OUTSIDE RECORDS SUMMARY | 2024-09-13 02:34 | External Medical Summary | Summary of Care ---
Author Name Unknown Organization [facility] Address [address] [place] [address] Phone [phone] Care Team Providers Care Evp Sales Name Role Phone Agatha Beach DO Primary Care Provider [phone] Reason for Visit * Reason Onset Date Comments Pre Cert/Prior Auth 03/27/2024 Freestyle li ashley 3 plus sensor Encounter Details Date Type Department Care Team (Late st Contact Info) Description 03/27/2024 Telephone [place] [address] [place] [address] Agatha Beach DO [address] [place] [address] Pre Cert/Prior Auth (Freestyle elis [...] the morning. Active FreeStyle Elis 14 Day [place] DeviceIndications: Type 2 diabetes mellitus with hemoglobin [...] EXIT SITE DAILY 09/05/2023 Active Droplet Pen [place] 32G X 4 MM (Insulin Pen Needle)Indications :Type 2 diabetes mellitus with hemoglobin A1c goal of less than or equal to 9.0% (HCC) use three times a day 300 Each 3 10/18/2023 Active Carvedilol 12.5 MG Oral Tablet (Coreg)Indications :Coronary artery disease of [place] artery of [place] heart with stable angina pectoris (HCC),HTN, goal below 140/90,Hypertensiv e heart and renal disease, 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 180 Tablet 3 11/02/2023 Active Nitroglycerin 0.4 MG Sublingual Tablet Sublingual (Nitrostat)Indicat ions:Coronary artery disease of [place] artery of [place] heart with stable angina pectoris (HCC) Place [...] artery disease of n ative artery of [place] heart with stable angina pectoris 07/07/2023 Overview: [...] f/u Recently had stents placed at [facility] Hypertensive chronic kidney disease with stage [...] encounter Miscellaneous Notes * Telephone Encounter - Vilma Hughes LPN - 03/27/2024 1:28 PM EST Prior auth started for [employer] elis 3 plus sensor with [employer] [place] EOC# [id number] * Telephone Encounter - Vilma Hughes LPN - 03/27/2024 1:27 PM EST documented in this encounter Plan of Treatment Upcoming Encounters Date Type Department Care Team (Late st Contact Info) Description 04/04/2024 1:00 PM EST Cardiac Studies Cardiac Studies, [facility] [address] [place] [address] 04/17/2024 11:45 AM EST Office Visit Urology Lroi Doshi [address] [facility] [address] [place] [address] Zeferino Bah Jr., MD [address] [place] [address] 04/25/2024 1:30 PM EST Office Visit Cardiology, [facility] [address] [place] [address] Emeka Sheets MD [address] [place] [address] 04/29/2024 4:00 PM EST Home Visit [facility] [address] [place] [address] Yeni Kent, RN [address] [place] [address] 05/20/2024 10:00 AM EST Office Visit Pharmacy, [place] [address] [place] [address] Марина [facility] [address] [place] [facility] [place] [address] 07/11/2024 9:30 AM EST Office Visit [facility] [address] [facility] [address] Agatha [facility] DO [address] [facility] [address] Scheduled Procedures Name Priority Associated Diagnoses Date/Ti [...] the patient have Health Care Power of Ceo And Founder? No * Full Code Date Activated Date [...] Power of Attor indira? No Care Teams Evp Sales Relationship Specialty Start Date End Date Agatha Beach DO [address], [place] [phone] PCP - General Family Medicine 01/25/13 documented as of this encounter
--- OUTSIDE RECORDS SUMMARY | 2024-09-13 02:34 | External Medical Summary | Summary of Care ---
Author Name Unknown Organization [facility] Address [address] [place] [address] Phone [phone] Care Team Providers Care Cargo Operations Agent Name Role Phone ShaAgatha blake Primary Care Provider [phone] Encounter Details Date Type Department Care Team (Latest Contact Info) Description 03/17/2024 4:30 PM EDT - 03/17/2024 11:59 PM EDT Hospital Encounter Radiology Film File [address] [place] [address] Discharge Disposition: Home - Self Care Allergies Active Allergy Reactions Criticality Noted Date Comments Egg-Derived Products Diarrhea 12/13/2019 Egg yolks documented as of this encounter (statuses as of 03/28/2024) Medications Medication Sig Dispensed Refills Start Date End Date Status Cholecalciferol 1000 UNITS Capsule Take 1 Capsule by mouth in the morning. 30 Cap 3 12/01/2015 Active vitamin e (AQUASOL E) 400 UNIT Capsule Take 1 Capsule by mouth in the morning. Active FreeStyle Elis 14 Day [place] DeviceIndications: Type 2 diabetes mellitus with hemoglobin A1c goal of less than or equal to 9.0% ([facility]) Use to test blood sugars every 8 [...] EXIT SITE DAILY 09/05/2023 Active Droplet Pen [place] 32G X 4 MM (Insulin Pen Needle)Indications :Type 2 diabetes mellitus with hemoglobin A1c goal of less than or equal to 9.0% (HCC) use three times a day 300 Each 3 10/18/2023 Active Carvedilol 12.5 MG Oral Tablet (Coreg)Indications :Coronary artery disease of [place] artery of [place] heart with stable angina pectoris (HCC),HTN, goal below 140/90,Hypertensiv e heart and renal disease, 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 180 Tablet 3 11/02/2023 Active Nitroglycerin 0.4 MG Sublingual Tablet Sublingual (Nitrostat)Indicat ions:Coronary artery disease of [place] artery of [place] heart with stable angina pectoris (HCC) Place [...] the morning. 15 mL 1 03/19/2024 Active documented as of this encounter (statuses as of 03/28/2024) Active Problems Problem Noted Date Diagnosed Date Aortic ectasia, abdominal 10/11/2023 Coronary artery disease of n ative artery of [place] heart with stable angina pectoris 07/07/2023 Overview: [...] cardiology f/u Recently had stents placed at [facility] Hypertensive chronic kidney disease with stage 5 [...] as of this encounter (statuses as of 03/28/2024) Resolved Problems Problem Noted Date Diagnosed Date [...] as of this encounter (statuses as of 03/28/2024) Immunizations Name Administration Dates Next Due COVID-19 mRNA, LNP-s, No Pre serve, 2-Dose Series (Modern[employer]) 08/03/2020,06/28/2020 COVID-19, mRNA, LNP-s, PF, B ooster, 100mcg/0.5mg (Moderna) 09/16/2021,04/06/2021 Covid-19, Mrna, Lnp-s, Pf, B ivalent, 30 Mcg, IM, 12 yrs and above ([employer]) 05/19/2022 Hepatitis B, 20+ yrs 04/24/2017,11/16/2016,10/06 Pneumococcal [...] on file documented as of this encounter Plan of Treatment Upcoming Encounters Date Type Department Care Team (Late st Contact Info) Description 04/04/2024 1:00 PM EST Cardiac Studies [facility] Studies, [facility] [place] [address] 04/17/2024 11:45 AM EST Office Visit Urology Lori Doshi [address] [place] [address] [phone] Zeferino Bah Jr., MD [address] [place] [address] 04/25/2024 1:30 PM EST Office Visit Cardiology, [facility] [address] [facility] [address] Emeka Sheets MD 132 [place] [address] 04/29/2024 4:00 PM EST [facility] Visit [facility] 132 [facility] [place] [address] Yeni Kent RN 132 [place] [address] 05/20/2024 10:00 AM EST [facility] [address] [place] [address] [facility] [address] [place] [address] 07/11/2024 9:30 AM EST Office Visit [facility] [address] [place] [address] Agatha Beach, [address] [place] [address] Scheduled Procedures Name Priority Associated Diagnoses Date/Ti [...] Procedure Name Priority Date/Time Associated Diagnosis Comments RADIOLOGY EXAM - CT (IMAGES ONLY, NO REPORT) Routine 03/17/2024 4:30 PM EDT documented in this encounter Results * RADIOLOGY EXAM - CT (IMAGES ONLY, NO REPORT) (03/17/2024 4:30 PM EDT) 03/17/2024 4:26 PM EDT Narrative Scheduling, Silent - 03/27/2024 11:35 AM EST This is an imaging study not interpreted or resulted by a [facility] or [facility] contracted radiologist. Zeferino Bah Jr., MD RAD CT documented in this encounter Advance Directives * [...] the patient have Health Care Power of C++ Quant Developer? No * Full Code Date Activated Date [...] Power of Attor indira? No Care Teams Cargo Operations Agent Relationship Specialty Start Date End Date Agatha Beach DO [address] [place] [address] PCP - General Family Medicine 01/25/13 documented as of this encounter
--- OUTSIDE RECORDS SUMMARY | 2024-09-13 02:34 | External Medical Summary | Summary of Care ---
Author Name Unknown Organization [facility] Address [address] [place] [address] Phone [phone] Care Team Providers Care Senior Datastage Developer Name Role Phone Agatha Beach Primary Care Provider [phone] Reason for Visit * Reason Comments Outpatient Testing Encounter Details Date Type Department Care Team (Late st Contact Info) Description 03/29/2024 9:50 AM EST Laboratory Laboratory, [place] [address] [place] [address] St, Specimen Drop Off [address] [id number] Hematuria, unspecified type Allergies Active Allergy Reactions Criticality Noted Date Comments Egg-Derived Products Diarrhea 12/13/2019 Egg yolks documented as of this encounter (statuses as of 03/29/2024) Medications Cholecalciferol 1000 UNITS Capsule Take 1 Capsule by mouth in the morning. 30 Cap 3 12/01/19 16 Active vitamin e (AQUASOL E) 400 UNIT Capsule Take 1 Capsule by mouth in the morning. Active FreeStyle Elis 14 Day [place] DeviceIndication s:Type 2 diabetes mellitus with hemoglobin A1c goal of less than or equal to 9.0% ([facility]) Use to test blood sugars every [...] SITE DAILY 09/05/19 24 Active Droplet Pen [place] 32G X 4 MM (Insulin Pen Needle)Indicatio ns:Type 2 diabetes mellitus with hemoglobin A1c goal of less than or equal to 9.0% (HCC) use three times a day 300 Each 3 10/18/19 24 Active Carvedilol 12.5 MG Oral Tablet (Coreg)Indicatio ns:Coronary artery disease of [place] artery of [place] heart with stable angina pectoris (HCC),HTN, goal below 140/90,Hypertens sarmad heart and renal disease, 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 180 Tablet 3 11/02/19 24 Active Nitroglycerin 0.4 MG Sublingual Tablet Sublingual (Nitrostat)Indic ations:Coronary artery disease of [place] artery of [place] heart with stable angina pectoris (HCC) Place [...] 90 Tablet 3 03/20/20 24 Active FreeStyle Leis 3 Sensor Use as directed every 14 days. 2 Each 11 03/27/20 Active documented as of this encounter (statuses as of 03/29/2024) Active Problems Problem Noted Date Diagnosed Date Aortic ectasia, abdominal 10/11/2023 Coronary artery disease of n ative artery of [place] heart with stable angina pectoris 07/07/2023 Overview [...] cardiology f/u Recently had stents placed at [facility] Assessment & Plan (08/02/2023 12:43 [...] as of this encounter (statuses as of 03/29/2024) Resolved Problems Problem Noted Date Diagnosed Date [...] as of this encounter (statuses as of 03/29/2024) Immunizations Name Administration Dates Next Due COVID-19 mRNA, LNP-s, No Pre serve, 2-Dose Series ([employer]) 08/03/2020,06/28/2020 COVID-19, mRNA, LNP-s, PF, B ooster, 100mcg/0.5mg ([employer]) 09/16/2021,04/06/2021 Covid-19, Mrna, Lnp-s, Pf, B ivalent, 30 Mcg, IM, 12 yrs and above ([employer] 05/19/2022 Hepatitis B, 20+ yrs 04/24/2017,11/16/2016,10/06 [...] 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 file Not on file Not on karyn e documented as of this encounter Plan of Treatment Upcoming Encounters Date Type Department Care Team (Late st Contact Info) Description 04/04/2024 1:00 PM EST Cardiac Studies Cardiac Studies, [address] [place] [id number] 04/17/2024 11:45 AM EST Office Visit Urology Tamia Wilder [place] [address] [place] [address] Zeferino Bah Jr., MD [address] [place] [address] 04/25/2024 1:30 PM EST Office Visit [facility], [facility] [address] Emeka Sheets MD [facility] [address] 04/29/2024 4:00 PM EST Home Visit [facility] 132 [facility] [place] [address] Yeni Kent RN 132 [place] [address] 05/20/2024 10:00 AM EST Office Visit [facility] [address] [place] [address] [facility] [address] [place] [address] 07/11/2024 9:30 AM EST Office Visit [facility] [address] [place] [address] Agatha Beach DO [address] [place] [address] Pending Results Name Type Priority Associated Diagnoses Date /Time URORISK(R) PANEL Lab Routine Hematuria, unspecified type 03/29/2024 9:48 AM EST Scheduled Procedures Name Priority Associated [...] Visit Diagnoses Diagnosis Coronary artery disease of [place] artery of [place] heart with stable angina pectoris (HCC)- Primary Hypertensive chronic kidney disease with 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 (HCC) Type 2 diabetes mellitus with hemoglobin A1c goal of less than or equal to 9.0% (HCC) 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) Advanced care planning/counseling discussion Other specified counseling Coronary artery disease of [place] artery of [place] heart with stable angina pectoris (HCC)- Primary Hypertensive chronic kidney disease with 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 (HCC) Type 2 diabetes mellitus with hemoglobin A1c goal of less than or equal to 9.0% (HCC) Hematuria, unspecified type documented in this encounter Advance Directives * [...] the patient have Health Care Power of Ladies Locker Room Attendant? No * Full Code Date Activated Date [...] of Attor indira? No Care Teams Senior Datastage Developer Relationship Specialty Start Date End Date Agatha Beach DO [address] [place] [id number] PCP - General Family Medicine 01/25/13 documented as of this encounter
--- OUTSIDE RECORDS SUMMARY | 2024-09-13 02:34 | External Medical Summary | Summary of Care ---
Author Name Unknown Organization [facility] Address [address] [place] [address] Phone [phone] Care Team Providers Care Foreign Student Adviser Teacher Name Role Phone Agatha Beach Primary Care Provider [phone] Encounter Details Date Type Department Care Team (Latest Contact Info) Description 03/17/2024 3:25 PM EDT - 03/17/2024 4:29 PM EDT Hospital Encounter Radiology Film File [address] [place] [address] Discharge Disposition: Home - Self [...] the morning. Active FreeStyle Elis 14 Day [place] DeviceIndications: Type 2 diabetes mellitus with hemoglobin A1c goal of less than or equal to 9.0% ([facility]) Use to test blood sugars [...] EXIT SITE DAILY 09/05/2023 Active Droplet Pen [place] 32G X 4 MM (Insulin Pen Needle)Indications :Type 2 diabetes mellitus with hemoglobin A1c goal of less than or equal to 9.0% (HCC) use three times a day 300 Each 3 10/18/2023 Active Carvedilol 12.5 MG Oral Tablet (Coreg)Indications :Coronary artery disease of [place] artery of [place] heart with stable angina pectoris (HCC),HTN, goal below 140/90,Hypertensiv e heart and renal disease, 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 180 Tablet 3 11/02/2023 Active Nitroglycerin 0.4 MG Sublingual Tablet Sublingual (Nitrostat)Indicat ions:Coronary artery disease of [place] artery of [place] heart with stable angina pectoris (HCC) Place [...] artery disease of n ative artery of [place] heart with stable angina pectoris 07/07/2023 Overview: [...] cardiology f/u Recently had stents placed at [facility] Hypertensive chronic kidney disease with stage 5 [...] 30 Mcg, IM, 12 yrs and above ([employer]) 05/19/2022 Hepatitis B, 20+ yrs 04/24/2017,11/16/2016,10/06 Pneumococcal [...] 1:00 PM EST Cardiac Studies Cardiac Studies, [facility] [place] [address] 04/17/2024 11:45 AM EST Office Visit Urology Lori Doshi [address] [place] [id number] Zeferino Bah Jr., MD [address] [place] [address] 04/25/2024 1:30 PM EST Office Visit Cardiology, [facility] [address] Emeka Sheets MD 132 [facility] [address] 04/29/2024 4:00 PM EST [facility] 132 [facility] [place] [address] Yeni Kent RN 132 [place] [address] 05/20/2024 10:00 AM EST [facility] [address] [place] [address] [facility] [address] [place] [address] 07/11/2024 9:30 AM EST Office Visit [facility] [address] [place] [address] Agatha Beach, [address] [place] [address] Scheduled Procedures Name Priority Associated Diagnoses Date/Ti [...] Date/Time Associated Diagnosis Comments RADIOLOGY EXAM - GENERAL RAD (IMAGES ONLY,NO REPORT) Routine 03/17/2024 3:25 PM EDT documented in this encounter Results * RADIOLOGY EXAM - GENERAL RAD (IMAGES ONLY,NO REPORT) (03/17/2024 3:25 PM EDT) 03/17/2024 3:24 PM EDT Narrative Scheduling, Silent - 03/27/2024 11:33 AM EST This is an imaging study not interpreted or resulted by a [facility] or [facility] contracted radiologist. Zeferino Bah Jr., MD RADIOLOGY ([facility]) documented in this encounter Advance Directives * [...] the patient have Health Care Power of Brand Executive? No * Full Code Date Activated Date [...] Power of Attor indira? No Care Teams Foreign Student Adviser Teacher Relationship Specialty Start Date End Date Agatha Beach DO [address] [place] [facility] [place] [address] PCP - General Family Medicine 01/25/13 documented as of this encounter
--- OUTSIDE RECORDS SUMMARY | 2024-09-13 02:34 | External Medical Summary | Summary of Care ---
Author Name Unknown Organization [facility] Address [address] [place] [address] Phone [phone] Care Team Providers Care Registered Medical Transcriptionist Name Role Phone Jenny Beach DO Primary Care Provider Reason for Visit * Reason Onset Date Comments Pre Cert/Prior Auth 03/27/2024 Freestyle li ashley 3 plus sensor Encounter Details Date Type Department Care Team (Late st Contact Info) Description 03/27/2024 Telephone [facility] [address] [place] [address] Jenny Beach DO [address] [place] [address] Pre Cert/Prior Auth (Freestyle elis [...] the morning. 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 Instead of prior authorization, Freestyle elis 3 needs sent like a DME instead to [employer]. * Telephone Encounter - Vilma Hughes LPN - 03/27/2024 1:28 PM EST Prior auth started for Freestyle elis 3 plus sensor with [employer] [place] [facility]# [id number] * Telephone Encounter - Vilma Hughes LPN - 03/27/2024 1:27 PM EST documented in this encounter Plan of Treatment Upcoming Encounters Date Type Department Care Team (Late st Contact Info) Description 04/04/2024 1:00 PM EST Cardiac Studies Cardiac Studies, [facility] 132 [facility] [place] [address] 04/17/2024 11:45 AM EST Office Visit Urology Tamia WilderLori [address] [place] [address] Zeferino Bah Jr., MD [address] [place] [address] 04/25/2024 1:30 PM EST Office Visit Cardiology, [facility] [place] [address] Emeka Sheets MD [address] [place] [address] 04/29/2024 4:00 PM EST [facility] [place] [address] Yeni Kent RN 132 [facility] [place] [address] 05/20/2024 10:00 AM EST Office [facility] [address] [place] [address] [facility] [address] [place] [address] 07/11/2024 9:30 AM EST Office Visit [facility] [address] Jenny Beach DO [address] [place] [address] Scheduled Procedures Name Priority Associated Diagnoses Date/Ti [...] Visit Diagnoses Diagnosis Coronary artery disease of [place] artery of [place] heart with stable angina pectoris (HCC)- Primary Hypertensive chronic kidney disease with 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 (HCC) Type 2 diabetes mellitus with hemoglobin A1c goal of less than or equal to 9.0% (HCC) 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) Advanced care planning/counseling discussion Other specified counseling Coronary artery disease of [place]neb[place] artery of [place] heart with stable angina pectoris (HCC)- Primary [...] the patient have Health Care Power of Criminal Justice Program Director? No * Full Code Date Activated Date [...] Power of Attor indira? No Care Teams Registered Medical Transcriptionist Relationship Specialty Start Date End Date Jenny Beach DO [address] [place] [address] PCP - General Family Medicine 01/25/13 documented as of this encounter
--- OUTSIDE RECORDS SUMMARY | 2024-09-13 02:34 | External Medical Summary | Summary of Care ---
Author Name Unknown Organization [facility] Address [address] [place] [address] Phone [phone] Care Team Providers Care Lead Embedded Software Engineer Name Role Phone Shasabaamarayvette Agatha Triplett Primary Care Provider [phone] Encounter Details Date Type Department Care Team (Late st Contact Info) Description 03/28/2024 Population Health External Data Unspecified Department Allergies [...] the morning. Active FreeStyle Elis 14 Day [place] DeviceIndication s:Type 2 diabetes mellitus with hemoglobin A1c goal of less than or equal to 9.0% ([facility]) Use to test blood [...] SITE DAILY 09/05/19 24 Active Droplet Pen [place] 32G X 4 MM (Insulin Pen Needle)Indicatio ns:Type 2 diabetes mellitus with hemoglobin A1c goal of less than or equal to 9.0% (HCC) use three times a day 300 Each 3 10/18/19 24 Active Carvedilol 12.5 MG Oral Tablet (Coreg)Indicatio ns:Coronary artery disease of [place] artery of [place] heart with stable angina pectoris (HCC),HTN, goal below 140/90,Hypertens sarmad heart and renal disease, 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 180 Tablet 3 11/02/19 24 Active Nitroglycerin 0.4 MG Sublingual Tablet Sublingual (Nitrostat)Indic ations:Coronary artery disease of [place] artery of [place] heart with stable angina pectoris (HCC) Place [...] artery disease of n ative artery of lone pine heart with stable angina pectoris 07/07/2023 Overview [...] f/u Recently had stents placed at [facility] Assessment & Plan (08/02/2023 12:43 PM EDT): [...] No 02/09/2024 Does the household have a [facility] source of income? 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 [address] [id number] 04/17/2024 11:45 AM EST Office Visit Urology Lori Doshi [address] [place] [address] Zeferino Bah Jr., MD [place] [address] 04/25/2024 1:30 PM EST Office Visit Cardiology, [facility] 132 [facility] [place] [address] Emeka Sheets MD [address] [place] [address] 04/29/2024 4:00 PM EST [facility] Visit [facility], [facility] [place] [address] Yeni Kent, RN [address] [place] [address] 05/20/2024 10:00 AM EST Office Visit Pharmacy, [place] [address] [place] [address] [facility] [address] [place] [address] 07/11/2024 9:30 AM EST Office Visit Family [facility] [address] [place] [address] Agatha Beach, [address] [place] [address] Scheduled Procedures Name Priority Associated Diagnoses Date/Ti [...] the patient have Health Care Power of Professor Sculpture? No * Full Code Date Activated Date [...] of Attor indira? No Care Teams Lead Embedded Software Engineer Relationship Specialty Start Date End Date Agatha Beach DO [address] [place] [address] PCP - General Family Medicine 01/25/13 documented as of this encounter
--- OUTSIDE RECORDS SUMMARY | 2024-09-13 02:34 | External Medical Summary | Summary of Care ---
Author Name Unknown Organization [facility] Address [address] [place] [address] Phone [phone] Care Team Providers Care Marine Architect Name Role Phone Agatha Beach DO Primary Care Provider [phone] Reason for Visit * Reason Onset Date Comments Pre Cert/Prior Auth 03/27/2024 Freestyle li ashley 3 plus sensor Encounter Details Date Type Department Care Team (Late st Contact Info) Description 03/27/2024 Telephone [place] [facility] [address] [place] [address] Agatha Beach DO [address] [place] [address] Pre Cert/Prior Auth (Freestyle elis [...] the morning. 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 180 Tablet 3 11/02/2023 Active Nitroglycerin 0.4 MG Sublingual Tablet Sublingual (Nitrostat)Indicat ions:Coronary artery disease of [place] artery of [place] heart with stable angina pectoris (HCC) Place [...] artery disease of n ative artery of marshall heart with stable angina pectoris 07/07/2023 Overview: [...] cardiology f/u Recently had stents placed at [facility] Hypertensive chronic kidney disease with stage [...] encounter Miscellaneous Notes * Telephone Encounter - Asia Lucio LPN - 03/28/2024 2:44 PM EST Please advise, can a DME be placed for patient? * Addendum Note - Hawa Miranda LPN - 03/27/2024 2:55 PM ESTAddended by: HAWA MIRANDA on: 03/27/2024 02:55 PM Modules accepted: Orders * Telephone Encounter - Hawa Miranda LPN - 03/27/2024 2:48 PM EST Dylan calling from [facility]. Instead of prior authorization, Freestyle elis 3 needs sent like a DME instead to [employer]. * Telephone Encounter - Vilma Hughes LPN - 03/27/2024 1:28 PM EST Prior auth started for Freestyle elis 3 plus sensor with [facility]# [id number] * Telephone Encounter - Vilma Hughes LPN - 03/27/2024 1:27 PM EST documented in this encounter Plan of Treatment Upcoming Encounters Date Type Department Care Team (Late st Contact Info) Description 04/04/2024 1:00 PM EST Cardiac Studies Cardiac Studies, [address] [place] [address] 04/17/2024 11:45 AM EST Office Visit Urology Tamia WilderLori [address] [place] [address] Zeferino Bah Jr., MD [address] [place] [address] 04/25/2024 1:30 PM EST Office Visit Cardiology, [facility] 132 [facility] [place] [address] Emeka Sheets MD 132 [facility] [place] [address] 04/29/2024 4:00 PM EST [facility] [place] 132 [facility] [place] [address] Yeni Kent RN [address] [facility] [address] 05/20/2024 10:00 AM EST [facility] [address] [place] [address] [facility] [address] [place] [address] 07/11/2024 9:30 AM EST [facility] [address] [place] [address] Agatha Beach DO [address] [place] [address] Scheduled Procedures Name Priority Associated Diagnoses Date/Ti [...] 10:22 AM 12/27/2022 6:34 PM This order r eflects the patients wishes and were consensually agreed upon. Question Answer Comments Discussion of Advance Direct kaden occurred with: Not Discussed due to patient's condition Does the patient have a Living Will? No Does the patient have Health Care Power of Art Coordinator? No * Full Code Date Activated [...] Power of Attor indira? No Care Teams Marine Architect Relationship Specialty Start Date End Date Agatha Beach DO [address] [place] [address] PCP - General Family Medicine 01/25/13 documented as of this encounter
--- OUTSIDE RECORDS SUMMARY | 2024-09-13 02:34 | External Medical Summary ---
Author Name Unknown Address Unknown Organization : Laboratory Report Ordering Provider Test Date Status ROCCO HUNTER 03/29/2024 09:48:21 Final Observation Date Value Abnormality Reference (Units ) Status TOTAL URINE VOLUME 03/29/2024 09:48:21 1.51 Below low normal >2.00 (L/day) Final This test was developed and its analytical
performance characteristics have been determined
by [facility]. It has not been cleared or
approved by the FDA. This assay has been validated
pursuant to the CLIA regulations and is used for
clinical purposes. PH URINE 03/29/2024 09:48:21 7.4 Above high normal 5. 5-7.0 Final CALCIUM, 24 HOUR URINE 03/29/2024 09:48:21 27 <250.0 (mg/day) Final This test was developed and its analytical
performance characteristics have been determined
by [facility]. It has not been cleared or
approved by the FDA. This assay has been validated
pursuant to the CLIA regulations and is used for
clinical purposes. OXALATE, 24 HOUR URINE 03/29/2024 09:48:21 68 Above h igh normal <45 (mg/day) Final This test was developed and its analytical
performance characteristics have been determined
by [facility]. It has not been cleared or
approved by the FDA. This assay has been validated
pursuant to the CLIA regulations and is used for
clinical purposes. URIC ACID, 24 HOUR URINE 03/29/2024 09:48:21 381 <700 (mg/day) Final This test was developed and its analytical
performance characteristics have been determined
by [facility]. It has not been cleared or
approved by the FDA. This assay has been validated
pursuant to the CLIA regulations and is used for
clinical purposes. CITRIC ACID, 24 HOUR URINE 03/29/2024 09:48:21 176 Below low normal >320 (mg/day) Fin al This test was developed and its analytical
performance characteristics have been determined
by [facility]. It has not been cleared or
approved by the FDA. This assay has been validated
pursuant to the CLIA regulations and is used for
clinical purposes. SODIUM, 24 HOUR URINE 03/29/2024:48:21 51 <200 (mEq/day) Final This test was developed and its analytical
performance characteristics have been determined
by [facility]. It has not been cleared or
approved by the FDA. This assay has been validated
pursuant to the CLIA regulations and is used for
clinical purposes. SULFATE, 24 HOUR URINE 03/29/2024:48:21 14 <30 (mmol/day) Final This test was developed and its analytical
performance characteristics have been determined
by [facility]. It has not been cleared or
approved by the FDA. This assay has been validated
pursuant to the CLIA regulations and is used for
clinical purposes. PHOSPHORUS, 24 HOUR URINE 03/29/2024:48:21 838 <1100 (mg/day) Final This test was developed and its analytical
performance characteristics have been determined
by [facility]. It has not been cleared or
approved by the FDA. This assay has been validated
pursuant to the CLIA regulations and is used for
clinical purposes. MAGNESIUM, 24 HOUR URINE 03/29/2024 09:48:21 88 >60.0 (mg/day) Final This test was developed and its analytical
performance characteristics have been determined
by [facility]. It has not been cleared or
approved by the FDA. This assay has been validated
pursuant to the CLIA regulations and is used for
clinical purposes. POTASSIUM, 24 HOUR URINE 03/29/2024 09:48:21 93 19-135 (mEq/day) Final This test was developed and its analytical
performance characteristics have been determined
by [facility]. It has not been cleared or
approved by the FDA. This assay has been validated
pursuant to the CLIA regulations and is used for
clinical purposes. CREATININE, 24 HOUR URINE 03/29/2024 09:48:21 7337 117-2624 (mg/day) Final This test was developed and its analytical
performance characteristics have been determined
by [facility]. It has not been cleared or
approved by the FDA. This assay has been validated
pursuant to the CLIA regulations and is used for
clinical purposes. CALCIUM OXALATE 03/29/2024 09:48:21 0.78 <2.0 0 (CALC) Final BRUSHITE 03/29/2024 09:48:21 0.94 <2.00 (SATYA C) Final SODIUM URATE 03/29/2024 09:48:21 0.76 <2.00 ( CALC) Final URIC ACID 03/29/2024 09:48:21 0.05 <2.00 (SATYA C) Final THE PATIENT HAS: 03/29/2024 09:48:21 SEE BELOW (CA LC) Final Hyperoxaluria
Hypocitrat uria
High urinary pH
Low urine volume SUPERSATURATION INDEX: 03/29/2024 09:48:21 DNR Final SUSPECTED PROBLEM IS: 03/29/2024 09:48:21 SEE BELOW (CALC) Final Hyperoxaluric Nephrolithiasi s
Hypocitraturic Nephrolithiasis COMMENTS 03/29/2024 09:48:21 DNR Final Test performed by [facility]
[address],
[place] [address]

Director Call Center Sales: Patrizia Nguyen MD,PHD,SAUL
Test Reported by [facility],
[facility],
[address] [place], [place]
Gus Connolly M.D., Ph.D., Director of Laboratories
, [facility] [id number] Performing Location
--- OUTSIDE RECORDS SUMMARY | 2024-09-13 02:35 | External Medical Summary | Summary of Care ---
Author Name Unknown Organization [facility] Address [address] [place] [facility] [place] [address] Phone [phone] Care Team Providers Care Broker Assistant Name Role Phone Agatha Beach Primary Care Provider [phone] Encounter Details Date Type Department Care Team (Late st Contact Info) Description 03/17/2024 Orders Only Urology Lori Doshi [address] [place] [id number] Zeferino Bah Jr., MD [address] [address] Allergies Active Allergy Reactions Criticality Noted Date [...] morning. Active FreeStyle Elis 14 Day [place] DeviceIndications: Type 2 diabetes mellitus with hemoglobin A1c goal of less than or equal to 9.0% ([facility]) Use to test blood sugars every 8 [...] EXIT SITE DAILY 09/05/2023 Active Droplet Pen [place] 32G X 4 MM (Insulin Pen Needle)Indications :Type 2 diabetes mellitus with hemoglobin A1c goal of less than or equal to 9.0% (HCC) use three times a day 300 Each 3 10/18/2023 Active Carvedilol 12.5 MG Oral Tablet (Coreg)Indications :Coronary artery disease of [place] artery of [place] heart with stable angina pectoris (HCC),HTN, goal below 140/90,Hypertensiv e heart and renal disease, 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 180 Tablet 3 11/02/2023 Active Nitroglycerin 0.4 MG Sublingual Tablet Sublingual (Nitrostat)Indicat ions:Coronary artery disease of [place] artery of [place] heart with stable angina pectoris (HCC) Place [...] artery disease of n ative artery of [place] heart with stable angina pectoris 07/07/2023 Overview: [...] cardiology f/u Recently had stents placed at [facility] Hypertensive chronic kidney disease with stage [...] Moderate-High Intensity Statin Aspirin Additional Comments Has eils CGM Hemoglobin AIC Results: Lab Results Component [...] 30 Mcg, IM, 12 yrs and above (Hyperpublic) 05/19/2022 Hepatitis B, 20+ yrs 04/24/2017,11/16/2016,10/06 Pneumococcal [...] 1:00 PM EST Cardiac Studies Cardiac Studies, [facility] [address] [facility] [place] [address] 04/17/2024 11:45 AM EST Office Visit Urology Tamia WilderLori [address] [phone] Zeferino Bah Jr., MD [address] [place] [address] 04/25/2024 1:30 PM EST Office Visit Cardiology, [facility] [address] [facility] [place] [address] Emeka Sheets MD [address] [facility] [place] [address] 04/29/2024 4:00 PM EST [facility] Visit [facility] [address] [facility] [place] [address] Yeni Kent RN [address] [facility] [facility] [place] [address] 05/20/2024 10:00 AM EST Office Visit Pharmacy, [place] [address] [place] [address] [facility] [address] [place] [address] 07/11/2024 9:30 AM EST Office Visit [facility] [address] [place] [address] Agatha Beach DO [address] [place] [address] Scheduled Procedures Name Priority Associated Diagnoses Date/Ti [...] interpreted or resulted by a [facility] contracted radiologist. Zeferino Bah Jr., MD RADIOLOGY (RAD GENERAL) documented in this encounter Advance Directives [...] the patient have Health Care Power of Drywall Metal Stud Worker? No * Full Code Date Activated [...] Power of Attor indira? No Care Teams Broker Assistant Relationship Specialty Start Date End Date Agatha Beach DO [address] [place] [address] PCP - General Family Medicine 01/25/13 documented as of this encounter
--- OUTSIDE RECORDS SUMMARY | 2024-09-13 02:35 | External Medical Summary | Summary of Care ---
Author Name Unknown Organization [facility] Address [address] [place] [facility] [place] [place] [place] [address] Phone [phone] Care Team Providers Care Rn Clinical Documentation Specialist Name Role Phone Agatha Beach Primary Care Provider [phone] Encounter Details Date Type Department Care Team (Late st Contact Info) Description 03/17/2024 Orders Only Urology Lori Doshi [address] [place] [address] Zeferino Bah Jr., MD [address] [address] Allergies Active Allergy Reactions Criticality Noted Date [...] the morning. Active FreeStyle Elis 14 Day [place] DeviceIndications: Type 2 diabetes mellitus with hemoglobin A1c goal of less than or equal to 9.0% ([facility]) Use to test blood sugars every 8 [...] EXIT SITE DAILY 09/05/2023 Active Droplet Pen [place] 32G X 4 MM (Insulin Pen Needle)Indications :Type 2 diabetes mellitus with hemoglobin A1c goal of less than or equal to 9.0% (HCC) use three times a day 300 Each 3 10/18/2023 Active Carvedilol 12.5 MG Oral Tablet (Coreg)Indications :Coronary artery disease of [place] artery of [place] heart with stable angina pectoris (HCC),HTN, goal below 140/90,Hypertensiv e heart and renal disease, 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 Hypertensive chronic kidney disease with stage 5 [...] 30 Mcg, IM, 12 yrs and above ([facility]) 05/19/2022 Hepatitis B, 20+ yrs 04/24/2017,11/16/2016,10/06 Pneumococcal [...] 1:00 PM EST Cardiac Studies Cardiac Studies, [facility] [address] [facility] [place] [address] 04/17/2024 11:45 AM EST Office Visit Urology Tamia WilderLori [address] [place] [address] Zeferino Bah Jr., MD [address] [place] [address] 04/25/2024 1:30 PM EST Office Visit Cardiology, [facility] [address] [facility] [place] [address] Emeka Sheets MD [address] [facility] [place] [address] 04/29/2024 4:00 PM EST [facility] Visit [facility] [address] [facility] [place] [address] Yeni Kent RN 132 [place] [address] 05/20/2024 10:00 AM EST Office Visit Pharmacy, [place] [address] [place] [address] [facility] [address] [place] [address] 07/11/2024 9:30 AM EST Office Visit [facility] [address] [place] [address] Agatha Beach DO [address] [place] [address] Scheduled Procedures Name Priority Associated Diagnoses Date/Ti [...] interpreted or resulted by a [facility] or [facility] radiologist. Zeferino Bah Jr., MD RAD [...] have Health Care Power of Director Of Materials? No * Full Code Date Activated Date [...] Power of Attor indira? No Care Teams Rn Clinical Documentation Specialist Relationship Specialty Start Date End Date Agatha Beach DO [address] [place] [address] PCP - General Family Medicine 01/25/13 documented as of this encounter
[2024-09-13 06:14] LABS: Basophils # (auto) 0.03 K/uL (0.00-0.20); Basophils % (auto) 0.3 %; Eosinophils # (auto) 0.18 K/uL (0.00-0.50); Eosinophils % (auto) 1.7 %; Hematocrit (blood only) 35.4 % (42.0-52.0); Hemoglobin 11.6 g/dl (14.0-18.0); Immature Granulocytes # (auto) 0.06 K/uL (0.01-0.20); Immature Granulocytes % (auto) 0.6 %; Lymphocytes # (auto) 1.28 K/uL (1.20-3.40); Lymphocytes % (auto) 12.1 %; Mean Corpuscular Hemoglobin 30.3 pg (25.0-34.0); Mean Corpuscular Hgb Conc 32.8 g/dL (32.0-36.0); Mean Corpuscular Volume 92.4 fL (80.0-100.0); Mean Platelet Volume 10.8 fL (9.4-12.4); Monocytes # (auto) 0.76 K/uL (0.11-0.59); Monocytes % (auto) 7.2 %; Neutrophils # (auto) 8.24 K/uL (1.40-6.50); Neutrophils % (auto) 78.1 %; Platelet Count 214 K/uL (130-400); RDW Coefficient of Variation 13.2 % (11.5-14.5); RDW Standard Deviation 44.9 fL (36.4-46.3); Red Blood Count 3.83 M/uL (4.70-6.10); White Blood Count 10.55 K/ul (4.8-10.8)
[2024-09-13 06:42] LABS: BUN Creatinine Ratio 5.4 (10-20); Creatinine Clr Calc Pharmacy 5.2 ml/min; Potassium 5.5 mmol/L (3.5-5.1)
[2024-09-13 07:08] LABS: Troponin I High Sensitivity 69983.7 pg/ml (0-20)
[2024-09-13] MEDS: SODIUM ZIRCONIUM CYCLOSILICATE 10 GM PACKET PO SCH (08:11)
[2024-09-13] MEDS: ATORVASTATIN 40 MG TAB PO SCH (08:13)
[2024-09-13] MEDS: CHOLECALCIFEROL 25 MCG (1000 UNITS) TAB PO SCH (08:14)
[2024-09-13] MEDS: TICAGRELOR 90 MG TAB PO SCH (08:14)
[2024-09-13] MEDS: EZETIMIBE 10 MG TAB PO SCH (08:14)
[2024-09-13] MEDS: PANTOprazole 40 MG TAB PO SCH (08:14)
--- NOTE | 2024-09-13 08:56 | Cardiology Consultation ---
Date of Consultation September 13, 2024 Assessment & Plan (1) Atrial fibrillation with rapid ventricular response: (2) Non-ST elevation WI (NSTEMI): (3) CAD (coronary artery disease), [place] coronary artery: (4) Chronic heart failure with reduced ejection fraction (HFrEF, <= 40%) and combined systolic and diastolic dysfunction: (5) End stage renal disease: Plan 74-year-old male presenting to hospital with unstable anginal symptoms in the setting of new onset rapid atrial fibrillation. Significantly elevated high- sensitivity troponin in setting of atrial fibrillation with rapid ventricular response. Chest pain resolved with spontaneous conversion to normal sinus rhythm. Echocardiogram demonstrating mild reduction of LV systolic function compared to previous. I am concerned about a new plaque rupture event given the significant elevated in troponin. Patient is currently chest pain free in sinus rhythm. Recommendations: * Amiodarone 200 mg 3 times daily to maintain sinus rhythm * Daily ECG during amiodarone loading * Monitor telemetry * IV heparin, aspirin, Brilinta, atorvastatin. * Reduce metoprolol to 25 mg twice daily. * Repeat cardiac enzymes * Discuss case further with patient's casino banker at [facility] (Dr. Cruz) to consider invasive options. Awaiting call back. * Urgent cardiac catheterization with any recurrent anginal symptoms. I spent a total of 75 minutes on the date of service in preparation, delivery, and documentation of the care provided to this patient, excluding any time spent in the performance of separately billed services. Addendum: Patient developed recurrent chest discomfort at approximately 3:[address] elevation. Case discussed with interventional cardiology. Cardiac catheterization will be performed for further evaluation. Patient agreeable to procedure. Family updated regarding clinical status. Micah Beach DO [facility] History of Present Illness Reason for Consultation: Chest pain, atrial fibrillation with rapid ventricular response Requesting Physician: John Cormier Attending Physician: Stevenson Lopez MD History of Present Illness 74-year-old male presented to the emergency department with chest pain. Sleep 2:30 PM. Describes initially mild to moderate substernal chest pressure which progressed to severe chest pressure after approximately 1 hours. He took more than 4 sublingual nitro glycerin with temporary relief. Due to ongoing symptoms he came to the ER for further evaluation and treatment. ECG in the ER demonstrated atrial fibrillation with rapid ventricular response. His pain/discomfort persisted throughout the evening until he spontaneously converted to normal sinus rhythm 10:30 PM. He has remained in sinus rhythm overnight. Currently chest pain free. Significantly elevated high-sensitivity troponin of 69,000 recorded overnight after patient converted to sinus rhythm. Bedside 2D transthoracic echocardiogram demonstrates left ventricular ejection fraction of 35 to 40% with apical dyskinesis. LV systolic function mildly declined compared to most recent study in March. History of complex coronary disease status post stenting of the left anterior descending artery, and obtuse marginal branch vessel December 2023 ([facility]). He returned for repeat cardiac catheterization July 01, 2024 demonstrating left circumflex ostial 95% and midvessel 95% extending to OM 1 treated with ALYSSA. The right coronary artery was found to be originating from the left coronary cusp and was not engaged during the study, however, the mid to distal RCA was reportedly severely disease per aortogram. Distal LAD chronic t otal occlusion reported. CT FFR of the RCA confirmed RCA is too heavily calcified for bypass graft. Medical history: 1. Hypertension 2. Dyslipidemia 3. Elevated BMI 4. Diabetes, type 2 insulin-requiring 5. Hypertriglyceridemia with history of pancreatitis 6. Hyperaldosteronism 7. Adrenal adenoma status post resection 8. JACOB, not on CPAP. 9. ESRD, treated with hemodialysis September 2022, peritoneal dialysis beginning January 2020 10. 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 Right-sided lacunar infarct September 2022 with mild residual left hand and leg weakness 12. Mild aortic stenosis per echo Jun 2023, March 2024 13. Mild left ventricular dysfunction with segmental wall motion abnormality distal LAD distribution, EF 45% Allergies Allergy/AdvReac Type Severity Reaction Status Date / Time Sulfa (Sulfonamide Allergy Intermediate RASH/VOMITI Verified 09/12/24 18:14 Antibiotics) NG egg yolk AdvReac Intermediate Diarrhea Verified 09/12/24 18:14 UNKNOWN PHOSPHATE BINDER AdvReac Severe SEVERE Uncoded 09/12/24 18:14 DIARRHEA Home Medications Medication Instructions Recorded Confirmed Type atorvastatin 80 mg tablet 80 mg PO DAILY 10/03/22 09/12/24 History cholecalciferol (vitamin D3) 25 25 mcg PO DAILY 10/03/22 09/12/24 History mcg (1,000 unit) capsule ezetimibe 10 mg tablet 10 mg PO QAM 10/03/22 09/12/24 History semaglutide 2 mg/dose (8 mg/3 mL) 2 mg subcut WK 10/03/22 09/12/24 History subcutaneous pen injector (Ozempic) aspirin 81 mg tablet,delayed 81 mg PO DAILY 8 days #0 tabs 10/14/22 09/12/24 Rx release insulin glargine 100 unit/mL (3 12 unit (0.12 mL) subcut QAM #15 mL 10/14/22 Rx mL) subcutaneous pen (Lantus Solostar U-100 Insulin) ferric citrate 210 mg iron tablet 1,000 mg PO BID 09/12/24 09/12/24 History (Auryxia) gentamicin 0.1 % topical cream 1 applic topical DIRECTED PRN 09/12/24 09/12/24 History NEEDED iron sucrose 200 mg iron/10 mL 20 mg IV .[id number] 09/12/24 09/12/24 History intravenous solution isosorbide mononitrate 120 mg 60 mg PO QAM 09/12/24 09/12/24 History tablet,extended release 24 hr metoprolol succinate 25 mg 12.5 mg PO BID 09/12/24 09/12/24 History tablet,extended release 24 hr nitroglycerin 0.4 mg sublingual 0.4 mg sublingual DIRECTED PRN 09/12/24 09/12/24 History tablet Chest Pain pantoprazole 40 mg tablet,delayed 40 mg PO QAM 09/12/24 09/12/24 History release ticagrelor 90 mg tablet (Brilinta) 90 mg PO BID 09/12/24 09/12/24 History vitamin E 268 mg (400 unit) capsule 268 mg PO DAILY 09/12/24 09/12/24 History Patient History Surgical History History of parathyroidectomy 2009 History of [place]ectomy [place] [facility] [place] Family History Father , age 90 with prostate cancer Prostate cancer Mother , age 67 of congestive heart failure Heart disease Other Diabetes Social History Smoking Status: Never smoker Tobacco Type: Cigarettes Age Started Using Tobacco: 12; Age Quit Using Tobacco: 35; packs per day: 1; Hx Alcohol Use: Yes Alcohol type: hard liquor Hx Substance Use: No Preferred Language: Slovak Communication Ability: Effective Manager Supply Required: No Beliefs That Will Affect Care: None Current Living Situation: Spouse current occupational status: retired 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 [employer] Other Information That Helps Us Care for You: No Feels Safe at Home: Yes Safety Concerns: Feels Safe At This Time Assistive Devices: Cane and Walker Review of Systems Review of Systems: All systems reviewed & are unremarkable except as noted in Subjective Physical Exam Constitutional: well nourished; no acute distress Respiratory: normal respiratory effort; no respiratory distress Auscultation: no crackles, no rales, no rhonchi and no wheezes Cardiovascular: Rate/Rhythm: regular rate and regular rhythm Heart Sounds: normal S1 and normal S2; no murmur Vessels: no JVD Extremities: no edema Gastrointestinal (Abdomen): Inspection/Auscultation: abdomen normal to inspection and normal bowel sounds; abdomen not distended Percussion/Palpation: abdomen soft; abdomen nontender, no guarding and abdomen not rigid Results & Data Vital Signs (Past 12 Hours) Vital Signs Temp Pulse Pulse Resp BP BP Pulse Ox 09/13/24 07:36 36.4 C L 69 18 120/80 91 09/12/24 22:50 62 122/75 09/12/24 22:41 64 09/12/24 22:27 36.3 C L 107 H 18 139/77 96 09/12/24 21:30 120 H 19 99/81 L 94 09/12/24 21:15 122 H 17 120/72 96 09/12/24 21:10 116 H 81/57 L O2 Del Method 09/13/24 07:36 Room Air 09/12/24 22:50 09/12/24 22:41 09/12/24 22:27 Room Air 09/12/24 21:30 09/12/24 21:15 09/12/24 21:10 Laboratory Results Cardiac Enzymes 09/12/24 09/12/24 09/12/24 Range/Units 17:32 19:20 21:26 AST 6 L (13-39) U/L Troponin I High Sens 275.9 H* 676.7 H* D 1286.6 H* D (0-20) pg/ml 09/13/24 Range/Units 05:56 AST (13-39) U/L Troponin I High Sens 71748.7 H* D (0-20) pg/ml Coagulation 09/12/24 Range/Units 17:32 PT 11.4 (9.0-12.0) Seconds APTT 26 (21-31) Seconds CBC 09/12/24 09/13/24 Range/Units 17:32 05:56 WBC 14.13 H 10.55 (4.8-10.8) K/ul RBC 4.37 L 3.83 L (4.70-6.10) M/uL Hgb 13.4 L 11.6 L (14.0-18.0) g/dl Hct 39.7 L 35.4 L (42.0-52.0) % Plt Count 246 214 (130-400) K/uL Neut # (Auto) 9.29 H 8.24 H (1.40-6.50) K/uL Lymph # (Auto) 3.39 1.28 (1.20-3.40) K/uL [place] # (Auto) 1.06 H 0.76 H (0.11-0.59) K/uL Eos # (Auto) 0.27 0.18 (0.00-0.50) K/uL Baso # (Auto) 0.04 0.03 (0.00-0.20) K/uL Comprehensive Metabolic Panel 09/12/24 09/13/24 Range/Units 17:32 05:56 Sodium 138 141 (136-145) mmol/L Potassium 4.3 5.5 H D (3.5-5.1) mmol/L Chloride 94 L 96 L (98-107) mmol/L Carbon Dioxide 21 28 (21-32) mmol/L BUN 83 H 84 H (6-23) mg/dl Creatinine 14.23 H* 15.43 H* D (0.6-1.4) mg/dl Glucose 228 H 147 H (70-99(Fasting)) mg/dl Calcium 9.4 9.0 (8.6-10.3) mg/dl AST 6 L (13-39) U/L ALT 10 (7-52) U/L Alkaline Phosphatase 89 (34-104) U/L Total Protein 8.2 (6.0-8.3) gm/dl Albumin 4.1 (3.4-5.0) gm/dl Intake and Output 09/12/24 09/13/24 09/13/24 22:59 06:59 14:59 Intake Total 833.87 / 908.87 75 / 908.87 258 / 258 Balance 833.87 / 908.87 75 / 908.87 258 / 258 Intake: IV 833.87 / 833.87 258 / 258 Esmolol / Nss 2,500 mg In 250 18.87 / 18.87 ml @ 50 MCG/KG/MIN 33.3 mls/hr IV .Q7H31M BRITTANIE Rx#:[id number] Heparin 25032 Unit/500 ml D5w 258 / 258 25,000 units In 500 ml @ 1,000 UNITS/HR 20 mls/hr IV .Q24H BRITTANIE Rx#:[id number] Promethazine 12.5 mg In 50.5 ml 50.5 / 50.5 @ 202 mls/hr IV NOW STA Rx#: [id number] Sodium Chloride 0.9% 250 ml @ 750 / 750 999 mls/hr IV .Q16M ONE Rx#: [id number] dilTIAZem HCL 125 mg In 14.5 / 14.5 Dextrose 5% 100 ml @ 0 MG/HR IV .Q0M [facility] Rx#:[id number] Oral 75 / 75 Other: Weight 105.823 kg 107.1 kg Weight Measurement Method Built in [facility] Built in [facility] Diagnostic Findings 2D echocardiogram report 04/04/2024: The left ventricular systolic function is mildly reduced. Calculated LV ejection Fraction = 46% (bi-plane method of discs). There is a large sized apical, septal, anteroseptal, and inferior wall motion abnormality with hypokinesis to dyskinesis of the segments. The wall thickness is mildly increased in segments with normal wall motion. The left ventricular diastolic function is mildly abnormal (grade I). Mild aortic valve stenosis is present. Mild mitral regurgitation is present. Compared to last available study changes are noted as follows: Apical wall motion abnormality and mild LV systolic dysfunction now present. This study has what is deemed to be a "significant abnormality" consistent with ACT 112. See additional documentation regarding notification of patient and ordering provider. 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 The right coronary artery ostium is oval. The right coronary artery follows an interarterial course to a margin in the atrioventricular groove. The proximal segment of the right coronary artery there is a stent which appears underexpanded. There is a stent in the mid and distal segment of the right coronary artery which is patent. The LAD has a stent in the proximal, mid and distal segments, unable to evaluate in-stent restenosis due to blooming from overlapping stents. The circumflex coronary artery has a stent in the proximal and mid segments, due to blooming artifact from overlapping stents cannot evaluate in-stent restenosis. (3) CAD (coronary artery disease), [place] coronary artery Associated angina: with unstable angina [place] vs. transplanted heart: [place] heart Qualified Code(s): I25.110 - Atherosclerotic heart disease of [place] coronary artery with unstable angina pectoris
--- NOTE | 2024-09-13 10:15 | Electrocardiogram Report ---
Test Reason : Blood Pressure : */* mmHG Vent. Rate : 159 BPM Atrial Rate : * BPM P-R Int : * ms QRS Dur : 106 ms QT Int : 252 ms P-R-T Axes : * -21 151 degrees QTcB Int : 409 ms Atrial fibrillation with rapid ventricular response with premature ventricular or aberrantly conducte d complexes Left ventricular hypertrophy with repolarization abnormality Abnormal ECG When compared with ECG of 03-Oct-2022 12:55, Significant changes have occurred Confirmed by Pedro Kim ([id number]) on 09/13/2024 10:14:58 AM Referred By: REFERRED SELF Confirmed By: Pedro Kim
--- NOTE | 2024-09-13 10:25 | Nephrology Consultation ---
Date of Consultation September 13, 2024 Assessment & Plan (1) End stage renal disease: 74/M with ESRD on PD since now admitted with NSTEMI and AFibb/rvr presented with Chest pain and SOB. last PD was Mon. did not get last night as he came to hospital /ED. Slight e/o fluid overload with acute cardiac probelm. K is also high at 5.5--Continue Lokelma. Also give lasix 100 mg iv x 1 .he still makes urine--says about 1200 ml urine per day when checked with PD about 1 month ago. PD tonight with be for 10-12 hrs and all 2.5% solution. at home he does for 10 hrs of 3000 ml fill and do 4 exchanges ( Mixed 2.5 and 1.5) (2) Chronic heart failure with reduced ejection fraction (HFrEF, <= 40%) and combined systolic and diastolic dysfunction: It appears Some drop in LVEF with NSTEMI and Afibb/RVR and there is some e/o fluid retention/CHF. Reviewed cards note and the plan of care. In Agreement (3) Atrial fibrillation with rapid ventricular response: On heparin drip. Amiodarone added. as of now no plan fo further cardiac Cath. Trop is very high--Does have NSTEMI. Also high from demand ischemia and being ESRD Plan Time spent 52 mins History of Present Illness Reason for Consultation: ESRD on PD admitted with Afibb/RVR and Worsened CHF Attending Physician: Stevenson Lopez MD History of Present Illness 74/M with ESRD on PD at home, multivessel coronary artery disease status post stent placement most recently , CHF ( ECHO now shows EF 35%). Other history includes hyperlipidemia, type 2 diabetes mellitus, hyper aldosteronism, JACOB, not on CPAP, adrenal adenoma s/p resection, right-sided lacunar infarct in September, right internal carotid artery pseudoaneurysm and dissection. Came to Hospital because of SOB/Chest Pain. found to be Afibb with RVR--new Onset. Seen By card . Had ECHO which shows worsened EF of 35%. Currently on heparin drip, amiodarone. Was on esmolol and also Cardizem drip before but not now. HR now is 69 and BP is fine. K was high at 5.5 so Lokelma was given. last PD exchange was on Mon. Currently Pain free and no Major resp Distress. he still makes urine--says about 1200 ml urine per day when checked with PD about 1 month ago. ROS--See HPI. 12 Systems reviewed and is otherwise negative Physical Exam Physical Exam: Constitutional: Alert oriented x 3; Respiratory: normal respiratory effort, lungs clear to auscultation, no wheeze, rales, rhonchi. Cardiovascular: Irregular, no murmur, no edema no JVD Abdomen: Soft, nontender. Peritoneal dialysis catheter in place. Exit site is normal. Skin: no rashes, warm and dry normal turgor . Allergies Allergy/AdvReac Type Severity Reaction Status Date / Time Sulfa (Sulfonamide Allergy Intermediate RASH/VOMITI Verified 09/12/24 18:14 Antibiotics) NG egg yolk AdvReac Intermediate Diarrhea Verified 09/12/24 18:14 UNKNOWN PHOSPHATE BINDER AdvReac Severe SEVERE Uncoded 09/12/24 18:14 DIARRHEA Home Medications Medication Instructions Recorded Confirmed Type atorvastatin 80 mg tablet 80 mg PO DAILY 10/03/22 09/12/24 History cholecalciferol (vitamin D3) 25 25 mcg PO DAILY 10/03/22 09/12/24 History mcg (1,000 unit) capsule ezetimibe 10 mg tablet 10 mg PO QAM 10/03/22 09/12/24 History semaglutide 2 mg/dose (8 mg/3 mL) 2 mg subcut WK 10/03/22 09/12/24 History subcutaneous pen injector (Ozempic) aspirin 81 mg tablet,delayed 81 mg PO DAILY 8 days #0 tabs 10/14/22 09/12/24 Rx release insulin glargine 100 unit/mL (3 12 unit (0.12 mL) subcut QAM #15 mL 10/14/22 09/12/24 Rx mL) subcutaneous pen (Lantus Solostar U-100 Insulin) ferric citrate 210 mg iron tablet 1,000 mg PO BID 09/12/24 09/12/24 History (Auryxia) gentamicin 0.1 % topical cream 1 applic topical DIRECTED PRN 09/12/24 09/12/24 History NEEDED iron sucrose 200 mg iron/10 mL 20 mg IV .[id number] 09/12/24 09/12/24 History intravenous solution isosorbide mononitrate 120 mg 60 mg PO QAM 09/12/24 09/12/24 History tablet,extended release 24 hr metoprolol succinate 25 mg 12.5 mg PO BID 09/12/24 09/12/24 History tablet,extended release 24 hr nitroglycerin 0.4 mg sublingual 0.4 mg sublingual DIRECTED PRN 09/12/24 09/12/24 History tablet Chest Pain pantoprazole 40 mg tablet,delayed 40 mg PO QAM 09/12/24 09/12/24 History release ticagrelor 90 mg tablet (Brilinta) 90 mg PO BID 09/12/24 09/12/24 History vitamin E 268 mg (400 unit) capsule 268 mg PO DAILY 09/12/24 09/12/24 History Patient History Surgical History History of parathyroidectomy 2009 History of adenectomy 2013 [place] [facility] [place] [facility] [place] Family History Father , age 90 with prostate cancer Prostate cancer Mother , age 67 of congestive heart failure Heart disease Other Diabetes Social History Smoking Status: Never smoker Tobacco Type: Cigarettes Age Started Using Tobacco: 12; Age Quit Using Tobacco: 35; packs per day: 1; Hx Alcohol Use: Yes Alcohol type: hard liquor Hx Substance Use: No Preferred Language: Turkish Communication Ability: Effective Traffic Enumerator Required: No Beliefs That Will Affect Care: None Current Living Situation: Spouse current occupational status: retired 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 Diagnostic Findings CXR--No issues. ECHO reviewed
--- NOTE | 2024-09-13 10:31 | Electrocardiogram Report ---
Test Reason : Blood Pressure : */* mmHG Vent. Rate : 70 BPM Atrial Rate : 70 BPM P-R Int : 174 ms QRS Dur : 90 ms QT Int : 422 ms P-R-T Axes : 100 -21 121 degrees QTcB Int : 455 ms Normal sinus rhythm Leftward axis Left ventricular hypertrophy with repolarization abnormality Abnormal ECG When compared with ECG of 12-Sep-2024 17:21, (unconfirmed) Sinus rhythm has replaced Atrial fibrillation Vent. rate has decreased by 89 bpm Confirmed by Pedro Kim ([id number]) on 09/13/2024 10:31:27 AM Referred By: REFERRED SELF Confirmed By: Pedro Kim
[2024-09-13] MEDS: ASPIRIN 81 MG CHEW PO SCH (10:46)
[2024-09-13] MEDS: AMIODARONE 200 MG TAB PO ONE (10:46)
[2024-09-13] MEDS: FUROSEMIDE 40 MG/4 ML VIAL IV ONE (11:19)
--- NOTE | 2024-09-13 13:53 | Hospitalist Progress Note ---
Date of Service September 13, 2024 Assessment & Plan (1) Atrial fibrillation with rapid ventricular response: Plan Assessment/plan Atrial fibrillation with RVR Demand ischemia History of CAD status post stent placement Patient presented to the hospital with intermittent chest pain EKG on admission consistent with atrial fibrillation with rapid ventricular rate along with ST and T wave changes ED provider will discussed with Dr. Corey from cardiology; recommended esmolol and heparin drip Echocardiogram done in March 2024 showed EF of 46%; large size apical, septal, anteroseptal and inferior wall motion abnormality with hypokinesis to decline disease of the segments. Grade 1 diastolic dysfunction. High sensitive troponin on admission was 275.9; up trended to 87,896.3. Repeat echocardiogram shows EF of 35 to 40% with large size apical, septal, anteroseptal, anterior and inferior wall motion abnormality with hypokinesis to dyskinesis of the segments. Patient was started on Cardizem drip and metoprolol; converted to normal sinus rhythm overnight on 09/12/2024. Patient is started on amiodarone for rhythm control at 3 times per day. Metoprolol decreased to 25 mg twice a day. Continue on heparin drip, DAPT Continue telemonitoring ESRD on peritoneal dialysis Hyperkalemia [facility] ordered for potassium of 5.5. Nephrology consulted for continuation of dialysis GERDcontinue on Protonix Hyperlipidemiacontinue on Lipitor, Zetia Type 2 diabetes mellituscontinue on insulin CADrecently stent placed in June 2024; continue on Brilinta . Imdur on hold for now Full code DVT prophylaxis heparin Time spent evaluating patient, direct bedside care, chart review, placing orders, interpretation of diagnostic studies, discussion with consultants, patient, and family members, as well as other required patient management activities is 50 minutes Please note the above document was generated using voice recognition software. It may contain grammatical, syntax or spelling errors. Any formal questions or concerns about the content, text or information contained within the body of this dictation should be directly addressed to the provider for clarification Admission and Anticipated Discharge Date Admission Date: September 12, 2024 Subjective Patient seen and examined at bedside. He reports that he is feeling much better. Chest pain has resolved. He converted to sinus rhythm overnight around 1030; denies any shortness of breath. Review of Systems Review of Systems: All systems reviewed & are unremarkable except as noted in Subjective Physical Exam Physical Exam: On physical examination; Constitutional: Alert oriented x 3; Respiratory: normal respiratory effort, lungs clear to auscultation, no wheeze, rales, rhonchi. Normal insp/exp effort, no accessory muscle use Cardiovascular: regular, no murmur, no edema Vessels: no JVD or carotid bruit Chest: normal inspection of chest Abdomen: Soft, nontender. Peritoneal dialysis catheter in place Musculoskeletal: no cyanosis or clubbing, extremities motor strength 5/5 Skin: no rashes, warm and dry normal turgor Neurologic: PERRL, EOMI, accommodation nl, no face palsy, no dysarthria CN's II- XI intact bilaterally and moves all extremities Results & Data Results & Data Vital Signs (Past 12 Hours) Vital Signs Temp Pulse Pulse Resp BP Pulse Ox O2 Del Method 09/13/24 10:31 36.5 C 67 18 103/69 90 Room Air 09/13/24 10:22 67 09/13/24 07:36 36.4 C L 69 18 120/80 91 Room Air
[2024-09-13] MEDS: AMIODARONE 200 MG TAB PO SCH (15:01)
[2024-09-13] MEDS: NITROGLYCERIN SL 0.4 MG/TAB TAB SL PRN (15:35)
--- NOTE | 2024-09-13 16:33 | Pre Anesthesia Assessment ---
Date of Service September 13, 2024 Pre Sedation Assessment Vital Signs Temp Pulse Pulse Resp BP BP Pulse Ox 09/13/24 15:39 98.2 F 69 18 121/80 90 09/13/24 10:31 97.7 F 67 18 103/69 90 09/13/24 10:22 67 09/13/24 07:36 97.5 F L 69 18 120/80 91 09/12/24 22:50 62 122/75 09/12/24 22:41 64 09/12/24 22:27 97.3 F L 107 H 18 139/77 96 09/12/24 21:30 120 H 19 99/81 L 94 09/12/24 21:15 122 H 17 120/72 96 09/12/24 21:10 116 H 81/57 L 09/12/24 20:33 107 H 14 81/57 L 93 09/12/24 19:37 125 H 19 94/65 L 92 09/12/24 18:00 155 H 22 107/79 09/12/24 17:59 138 H 107/79 09/12/24 17:49 97 09/12/24 17:41 165 H 109/85 09/12/24 17:37 153 H 18 109/85 96 09/12/24 17:35 162 H 18 109/85 97 09/12/24 17:13 97.5 F L 98 H 19 146/71 H 98 09/12/24 17:12 O2 Del Method 09/13/24 15:39 Room Air 09/13/24 10:31 Room Air 09/13/24 10:22 09/13/24 07:36 Room Air 09/12/24 22:50 09/12/24 22:41 09/12/24 22:27 Room Air 09/12/24 21:30 09/12/24 21:15 09/12/24 21:10 09/12/24 20:33 09/12/24 19:37 09/12/24 18:00 09/12/24 17:59 09/12/24 17:49 Room Air 09/12/24 17:41 09/12/24 17:37 09/12/24 17:35 Room Air 09/12/24 17:13 Room Air 09/12/24 17:12 Room Air Cardiovascular + regular rate Respiratory + respiratory effort normal Pre-Sedation Airway Assessment Smoking Status: Never smoker Hx Sleep Apnea: Yes Hx Difficult Intubation: No Short, Thick Neck: No Thyromental Distance: > or= 3.5 Finger Breadths Oral Cavity: + Chipped Teeth Mallampati Class: III ASA: ASA3 Procedure Planning Contraindications for Sedation: none Current Medications Reviewed: Yes Notes The planned sedation has been discussed with the patient. Informed Consent was obtained. I have identified the patient, determined the appropriateness of sedation and have assessed the patient immediately prior to the procedure. All medicine(s) and interventions are by my order.
[2024-09-13] MEDS: niCARdipine 2,000 MCG/20 ML SYR ONE (17:19)
[2024-09-13] MEDS: MIDAZOLAM HCL 1 MG/ML 2ML VIAL ONE ×2 (17:19→18:10)
[2024-09-13] MEDS: OPTIRAY 350 ONE (17:20)
[2024-09-13] MEDS: LIDOCAINE 1% LOCAL 20 ML VIAL ONE (17:20)
[2024-09-13] MEDS: NITROGLYCERIN/D5W 100MCG/ML 20ML SYR ONE (17:20)
[2024-09-13] MEDS: HEPARIN (PORCINE) 1000 UNIT/ML 10 ML (CATH LAB USE ONLY) ONE (18:09)
[2024-09-13] MEDS: fentaNYL citrate PF 100 MCG/2 ML VIAL ONE (18:09)
[2024-09-13] MEDS: IODIXANOL (VISIPAQUE) 320 MG/ML 100ML IV ONE (18:10)
--- NOTE | 2024-09-13 18:23 | Post Anesthesia Assessment ---
Date of Service September 13, 2024 Post Sedation Assessment Vital Signs Temp Pulse Pulse Resp BP BP Pulse Ox 09/13/24 15:39 98.2 F 69 18 121/80 90 09/13/24 15:00 69 09/13/24 10:31 97.7 F 67 18 103/69 90 09/13/24 10:22 67 09/13/24 07:36 97.5 F L 69 18 120/80 91 09/12/24 22:50 62 122/75 09/12/24 22:41 64 09/12/24 22:27 97.3 F L 107 H 18 139/77 96 09/12/24 21:30 120 H 19 99/81 L 94 09/12/24 21:15 122 H 17 120/72 96 09/12/24 21:10 116 H 81/57 L 09/12/24 20:33 107 H 14 81/57 L 93 09/12/24 19:37 125 H 19 94/65 L 92 O2 Del Method 09/13/24 15:39 Room Air 09/13/24 15:00 09/13/24 10:31 Room Air 09/13/24 10:22 09/13/24 07:36 Room Air 09/12/24 22:50 09/12/24 22:41 09/12/24 22:27 Room Air 09/12/24 21:30 09/12/24 21:15 09/12/24 21:10 09/12/24 20:33 09/12/24 19:37 Recovery Score Activity: Moves 4 extremities Respiration: Deep Breath/Cough Circulation: +/-20% PreAnes Value Consciousness: Fully Awake Oxygen Saturation: O2 needed for >90% Discharge Sedation Level of Care: Fast Track Phase II Post Sedation Plan On clinical assessment, the patient appears to have tolerated the sedation without complications. Patient is recovering as anticipated. Patient will continue to be monitored by nursing and may be discharged when sedation discharge criteria are met per below protocol. Upon Completions of procedure up to 15 minutes continue every 5 minute vital signs and the P.A.R. score; then discharge to a Phase I or Fast Track to Phase II per the following guidelines: * Discharge Patient to appropriate Phase II area if PAR is 8 or greater or return to pre- procedure baseline. The post - procedure orders will be as directed. * If PAR score is less than 8 or not return to pre-procedure baseline then patient will follow Phase I monitoring till PAR is reached for Phase II. The Phase I may be done in procedure room or may call to secure a Phase I area. * If naloxone or flumazenil are used for reversal, hold in Phase I for continued monitoring from when last reversal dose was given for a minimum of 60 minutes or longer pending the nurse and/or physician discretion of patient condition before discharge to Phase II. Please call the Sedation Physician to re-evaluate and complete post-note for discharge to Phase II area. Do NOT discharge from procedure sedation or Phase 1 until post- sedation evaluation note is complete by procedure /sedation MD Sedation Discharge Instructions to be given to the patient at discharge to home.
[2024-09-13] MEDS: PRASugrel TAB 10 MG TAB PO ONE (18:24)
--- NOTE | 2024-09-13 18:27 | Post Operative Brief Note ---
Cardiology Brief Post Op Date of Surgery September 13, 2024 Pre & Post Diagnosis NSTEMI Multivessel CAD Procedure Moderate sedation Coronary angiography Ultrasound guided vascular access PCI to circumflex IVUS Closure device placement Aluminum Boat Assembly Supervisor Blayne Corey MD Textile Supervisor Deibler Estimated Blood Loss 25 Findings See Below 95% acute proximal LAD late-stent thrombosis chronic distal LAD occlusion 80% small proximal OM1 RCA not well visualized, anomalous take-off, appears patent Successful PCI of proximal circumflex with 4.5 x 18 mm Clement ALYSSA post dilated with 5.0 NC. Anesthesia Type RN Sedation Complications none Disposition Accompanied Patient To Recovery: No Disposition: PCU
[2024-09-13] MEDS: FERRIC CITRATE 210 MG TAB PO SCH (20:51)
[2024-09-13] MEDS: METOPROLOL TARTRATE 25 MG TAB PO SCH (20:54)
--- NOTE | 2024-09-13 22:47 | Cardiac Catheterization ---
[facility] Data: Stable Helper Cardiac Status Clinical evaluation leading to the procedure CAD Presenation: Non STEMI Anginal Classification: CCS IV Diagnostic Physicians Name: Blayne Corey MD Closure Device Recommendations: PCI without planned CABG Cardiac Cath Procedure Full Procedure Date September 13, 2024 Pre-Procedure Diagnosis Pre-Procedure Diagnosis: Non STEMI AUC Score AUC Score: 8 Post-Procedure Diagnosis Post-Procedure Diagnosis: Severe CAD and Successful PCI Procedure(s) Performed Procedure(s) Performed: Coronary Angiography, Drug Eluting Stent and IVUS Shore Man Blayne Corey MD Credit Collections Manager(s) Deibler Estimated Blood Loss Estimated Blood Loss: 25 Medication(s) Medication(s): Fentanyl, Heparin, Lidocaine 1%, Nicardipine, Nitroglycerin and Versed Summary of Findings Indication: High risk NSTEMI. Known complex CAD. Multiple stents to LAD with known distal LAD occlusion. Recent stenting to circumflex at [facility] 06/2024. Anomalous RCA with disease Access: 6 Fr slender right radial artery, 6 Fr right PHOTOGRAPHY TEACHER under ultrasound guidance Catheters: [place], AL-1, AL-1, EBU 4 Findings: LM -large caliber, calcified, no significant disease LAD -large caliber, heavily calcified, 30 to 40% proximal to mid disease. Mid LAD stents patent until 95% in-stent nodular stenosis just prior to takeoff of D2. LAD after D2 chronically occluded. Bifurcating D1 without significant. Small D2 without significant disease. Circumflex -large caliber, 95% acute proximal in-stent thrombosis. Mid stent patent with 30% in-stent restenosis after takeoff of OM 2. Remainder of AV groove circumflex without significant disease. Proximal OM2 with 80% proximal stenosis. 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 Nonselectively engaged. Appears patent with calcified diffuse disease. -- PCI -- Antithrombotic therapy: Heparin, ticagrelor Procedure: Left main cannulated with EBU 4 guide Pre-procedure flow ARIELLE 2-3 [place] blue wire passed across lesion into distal vessel Proximal in-stent disease predilated with 2.5 compliant balloon, and 4.0 NC balloon Barnard IVUS catheter placed to mid LAD. Pullback revealed minimal residual thrombus with concentric calcified stenosis/mild underexpansion involving most proximal aspect of proximal stent. Left main calcified without significant stenosis. Proximal stent further predilated with 5.0 NC balloon to atmospheres Dilated lesion stented with 4.5 x 18 mm Clement drug-eluting stent Stent post-dilated with 5.0 NC noncompliant balloon IC vasodilators administered for spasm Post procedure ARIELLE 3 flow, stent well expanded with minimal residual stenosis and no apparent cardiac complications. Arterial Closure: TR band Summary: 1. Multivessel coronary artery disease -Acute 95% proximal circumflex in-stent thrombosis 95% calcified mid LAD in-stent restenosis just before D2. After D2 100% mid LAD chronic total occlusion. 80% small proximal OM 2 Anomalous RCA poorly visualized. Appears patent with diffuse calcified disease 2. Successful PCI of proximal circumflex in-stent thrombosis with new overlapping ALYSSA (4.5 x 18 mm Clement; postdilated with 5.0 NC). Recommendations: To PCU for continued monitoring Continue DAPT with aspirin, ticagrelor. Can add apixaban tomorrow with new atrial fibrillation. Favor triple therapy for 1 month then can discontinue aspirin. Hemodynamics Rest Ao:: 83/61/71 Final Ao: 144/85/119 LV: -- Recommendations Recommendations: PCI without planned CABG Specimens Specimens: None Radiation Exposure (mGy) 4243 Contrast (mls) 145 Anesthesia Moderate 9321-1965 Procedural Complication(s) None Disposition PCU I attest to the content of the Intraoperative Record and any orders documented therein. Any exceptions are noted below. [facility] Card Cath Procedure Codes Cardiac Catheterization Procedure 1: Cardiovascular Cath Procedures: 40299 Coronaries Therapeutic Services & Ancillary Procedure 1: Cardiovascular Tx and Anc Procedures: 56448 IV Ultrasound (Coronary or Graft) Procedure 2: Cardiovascular Tx and Anc Procedures: 90650 Ultrasonic Guidance Vascular Access Moderate Sedation Procedure 1: Sedation/Anesthesia: 07726 Mod Sedation by the same physician;Init15 Min Child Age 5 & Up Procedure 2: Sedation/Anesthesia: 62666 Mod Sedation by the same physician; Ea [id number] Minutes Stenting Procedure 1: Cardiovascular Stent Procedures: 83123 Perc transcatheter placement of intracoronary stent(s), with ang PG Care Time/CCT Total # of Minutes Spent Total Time Spent with Patient: Total time spent is greater than 50% in coordination of care (as documented) at patient's floor/unit and/or counseling patient:
[2024-09-14] MEDS: PROMETHAZINE 12.5 MG/50.5 ML BAG IV STA (04:42)
[2024-09-14 06:19] LABS: Basophils # (auto) 0.03 K/uL (0.00-0.20); Basophils % (auto) 0.3 %; Eosinophils # (auto) 0.19 K/uL (0.00-0.50); Eosinophils % (auto) 1.7 %; Hematocrit (blood only) 35.3 % (42.0-52.0); Hemoglobin 11.6 g/dl (14.0-18.0); Immature Granulocytes # (auto) 0.05 K/uL (0.01-0.20); Immature Granulocytes % (auto) 0.4 %; Lymphocytes # (auto) 1.07 K/uL (1.20-3.40); Lymphocytes % (auto) 9.6 %; Mean Corpuscular Hemoglobin 30.3 pg (25.0-34.0); Mean Corpuscular Hgb Conc 32.9 g/dL (32.0-36.0); Mean Corpuscular Volume 92.2 fL (80.0-100.0); Mean Platelet Volume 11.2 fL (9.4-12.4); Monocytes # (auto) 0.81 K/uL (0.11-0.59); Monocytes % (auto) 7.3 %; Neutrophils # (auto) 8.98 K/uL (1.40-6.50); Neutrophils % (auto) 80.7 %; Platelet Count 206 K/uL (130-400); RDW Coefficient of Variation 13.2 % (11.5-14.5); RDW Standard Deviation 44.6 fL (36.4-46.3); Red Blood Count 3.83 M/uL (4.70-6.10); White Blood Count 11.13 K/ul (4.8-10.8)
[2024-09-14 06:39] LABS: BUN Creatinine Ratio 5.7 (10-20); Creatinine Clr Calc Pharmacy 5.4 ml/min; Potassium 4.1 mmol/L (3.5-5.1)
--- NOTE | 2024-09-14 08:54 | Hospitalist Progress Note ---
Date of Service September 14, 2024 Assessment & Plan (1) Atrial fibrillation with rapid ventricular response: Plan Assessment/plan Atrial fibrillation with RVR NSTEMI Patient presented to the hospital with intermittent chest pain EKG on admission consistent with atrial fibrillation with rapid ventricular rate along with ST and T wave changes ED provider will discussed with Dr. Corey from cardiology; recommended esmolol and heparin drip Echocardiogram done in March 2024 showed EF of 46%; large size apical, septal, anteroseptal and inferior wall motion abnormality with hypokinesis to decline disease of the segments. Grade 1 diastolic dysfunction. High sensitive troponin on admission was 275.9; up trended to 87,896.3. Repeat echocardiogram shows EF of 35 to 40% with large size apical, septal, anteroseptal, anterior and inferior wall motion abnormality with hypokinesis to dyskinesis of the segments. Patient was started on Cardizem drip and metoprolol; converted to normal sinus rhythm overnight on 09/12/2024. Patient is started on amiodarone for rhythm control at 3 times per day. Metoprolol decreased to 25 mg twice a day. Patient had recurrence of chest pain on 09/13; was taken to cardiac cath; circumflex was found to have 95% acute proximal in-stent thrombosis; successful PCI of proximal circumflex in-stent thrombosis with new overlapping ALYSSA. Continue on aspirin and Brilinta; possibly Eliquis to be added for new atrial fibrillation with triple therapy for 1 month and discontinue aspirin.Will appreciate general cardiology recommendation. ESRD on peritoneal dialysis Hyperkalemia- resolved Nephrology consulted for continuation of dialysis GERDcontinue on Protonix Hyperlipidemiacontinue on Lipitor, Zetia Type 2 diabetes mellituscontinue on insulin CADrecently stent placed in June 2024; continue on Brilinta . Imdur on hold for now Full code DVT prophylaxis Dispositionfrom home; plan to obtain PT OT evaluation. Time spent evaluating patient, direct bedside care, chart review, placing orders, interpretation of diagnostic studies, discussion with consultants, selma durant, and family members, as well as other required patient management activities is 50 minutes Please note the above document was generated using voice recognition software. It may contain grammatical, syntax or spelling errors. Any formal questions or concerns about the content, text or information contained within the body of this dictation should be directly addressed to the provider for clarification Admission and Anticipated Discharge Date Admission Date: September 12, 2024 Subjective Patient seen and examined at bedside. He reports that he is feeling much better; denies any chest pain or discomfort. Denies shortness of breath, fever, chills or abdominal pain No significant events overnight Review of Systems Review of Systems: All systems reviewed & are unremarkable except as noted in Subjective Physical Exam Physical Exam: On physical examination; Constitutional: Alert oriented x 3; Respiratory: normal respiratory effort, lungs clear to auscultation, no wheeze, rales, rhonchi. Normal insp/exp effort, no accessory muscle use Cardiovascular: regular, no murmur, no edema Vessels: no JVD or carotid bruit Chest: normal inspection of chest Abdomen: Soft, nontender. Peritoneal dialysis catheter in place Musculoskeletal: no cyanosis or clubbing, extremities motor strength 5/5 Skin: no rashes, warm and dry normal turgor Neurologic: PERRL, EOMI, accommodation nl, no face palsy, no dysarthria CN's II- XI intact bilaterally and moves all extremities Results & Data Results & Data Vital Signs (Past 12 Hours) Vital Signs Temp Pulse Pulse Resp BP BP Pulse Ox 09/14/24 08:00 37.0 C 85 18 94/63 L 94 09/14/24 02:36 36.5 C 72 20 90/63 L 92 09/13/24 23:15 73 09/13/24 23:15 36.8 C 70 18 107/77 96 09/13/24 22:10 75 106/73 97 09/13/24 21:28 36.5 C 72 19 111/76 95 O2 Del Method O2 Flow Rate 09/14/24 08:00 Room Air 09/14/24 02:36 Room Air 09/13/24 23:15 09/13/24 23:15 Nasal Cannula 2 09/13/24 22:10 Nasal Cannula 2 09/13/24 21:28 Nasal Cannula 2
[2024-09-14] MEDS ORDERED: Nursing to Pharmacy Communication SCH (09:00)
--- NOTE | 2024-09-14 09:24 | Cardiology Progress Note ---
Date of Service September 14, 2024 Assessment & Plan (1) Atrial fibrillation with rapid ventricular response: (2) Non-ST elevation [place] (NSTEMI): (3) CAD (coronary artery disease), [place] coronary artery: (4) Chronic heart failure with reduced ejection fraction (HFrEF, <= 40%) and combined systolic and diastolic dysfunction: (5) End stage renal disease: Plan 74-year-old male presenting to hospital with unstable anginal symptoms in the setting of new onset rapid atrial fibrillation. Significantly elevated high- sensitivity troponin in setting of atrial fibrillation with rapid ventricular response. Chest pain resolved with spontaneous conversion to normal sinus rhythm. Echocardiogram demonstrating mild reduction of LV systolic function compared to previous. I am concerned about a new plaque rupture event given the significant elevated in troponin. Patient is currently chest pain free in sinus rhythm. Recommendations: * Amiodarone 200 mg 3 times daily to maintain sinus rhythm * Daily ECG during amiodarone loading * Monitor telemetry * IV heparin, aspirin, Brilinta, atorvastatin. * Reduce metoprolol to 25 mg twice daily. * Repeat cardiac enzymes * Discuss case further with patient's integration developer at [facility] (Dr. Cruz) to consider invasive options. Awaiting call back. * Urgent cardiac catheterization with any recurrent anginal symptoms. I spent a total of 75 minutes on the date of service in preparation, delivery, and documentation of the care provided to this patient, excluding any time spent in the performance of separately billed services. Addendum: Patient developed recurrent chest discomfort at approximately 3:[address] elevation. Case discussed with interventional cardiology. Cardiac catheterization will be performed for further evaluation. Patient agreeable to procedure. Family updated regarding clinical status. Micah Becah DO, [facility] 09/14/2024: -Patient is resting comfortably in bed with no acute concerns. Spouse at bedside. -Underwent cardiac catheterization s/p PCI with ALYSSA to the proximal circumflex in-stent thrombosis with new overlapping ALYSSA (4.5 x18mm [place]; postdilated with 5.0 NC). -Patient remains chest pain free. EKG this AM with no acute changes. Troponin continues to trend down. VS Stable -Labs stable. -Eating and drinking ok. -Cath site soft/non-tender, Positive pulse, motor sensation and no discharge or drainage. -Continue DAPT with Brilinta and ASA 81mg. -Continue Atorvastatin and Zetia -Review of telemetry shows SR with no acute events overnight. Will continue Amiodarone and Lopressor. Will discuss with Dr. Beach today if the plan is to start Eliquis today. Interventional cardiology has recommended that Triple therapy would be continued for 1 month and there after ASA would be discontinued. -Continue to monitor on telemetry. Case has been discussed with Dr. Beach. Further recommendations regarding plan of care as per his assessment. I spent a total of 30 minutes on the date of service in preparation, delivery, documentation of the care provided to the patient excluding any time spent in the performance of separately billed services. HAILEE Joseph [facility] Admission and Anticipated Discharge Date Admission Date: September 12, 2024 Supervising Physician Co-Signing Physician Notes I have personally performed a history and physical examination on the patient. I have reviewed the advance practitioner's documentation, and I agree with, and take responsibility for the plan of care. Patient seen and examined at bedside. No recurrent chest discomfort overnight. Telemetry reveals sinus rhythm without recurrent atrial fibrillation. Tolerating amiodarone in addition to other cardiovascular medications. Recommendations: * Add Eliquis 5 mg twice daily, first dose tonight. * Continue triple therapy with aspirin, Brilinta, and Eliquis for 1 month then discontinue low-dose aspirin. * Continue atorvastatin, and Zetia. * Transition metoprolol to tartrate to succinate formulation. * Continue amiodarone 200 mg 3 times daily while hospitalized. * Reduce amiodarone to 200 mg twice daily at discharge. * Continue twice daily amiodarone for 2 weeks post-discharge then reduce dose to 200 mg once daily. I spent a total of 35 minutes on the date of service in preparation, delivery, and documentation of the care provided to this patient, excluding any time spent in the performance of separately billed services. Micah Beach DO, [facility] Subjective 09/14/2024: Patient seen and examined in follow up today. Feeling well from a cardiac perspective. He is resting comfortably in bed with no acute concerns. Spouse is at bedside. Patient denies any chest pain, pressure or palpitations, No shortness of breath, no PND, pre-syncope or syncope. Labs, vitals, diagnostics, telemetry and documentation reviewed. Telemetry reviewed showing SR rates in the 70's with no acute events overnight. EKG today NSR, possible anterolateral infarct. Rate 81bpm. S/P PCI with ALYSSA to his circumflex 09/13/24. tolerating all medications well. No bleeding issues cath site Review of Systems Review of Systems: All systems reviewed & are unremarkable except as noted in HPI & below Physical Exam Constitutional: well developed and well nourished; no acute distress and not ill appearing Neck: normal visual inspection and trachea midline Respiratory: normal respiratory effort, lungs clear to auscultation Auscultation: no crackles, no rales, no rhonchi and no wheezes Cardiovascular: RRR, no murmur, no edema Heart Sounds: normal S1 and normal S2 Vessels: dorsalis pedis pulses present; no JVD Extremities: no edema Skin: no rashes, warm and dry Psychiatric: A+Ox3, euthymic affect Results & Data Vital Signs (Past 12 Hours) Vital Signs Temp Pulse Pulse Pulse Resp BP BP 09/14/24 08:45 37.0 C 85 18 09/14/24 08:00 37.0 C 85 18 94/63 L 09/14/24 02:36 36.5 C 72 20 90/63 L 09/13/24 23:15 73 09/13/24 23:15 36.8 C 70 18 107/77 09/13/24 22:10 75 106/73 09/13/24 21:28 36.5 C 72 19 111/76 Pulse Ox O2 Del Method O2 Flow Rate 09/14/24 08:45 09/14/24 08:00 94 Room Air 09/14/24 02:36 92 Room Air 09/13/24 23:15 09/13/24 23:15 96 Nasal Cannula 2 09/13/24 22:10 97 Nasal Cannula 2 09/13/24 21:28 95 Nasal Cannula 2 Laboratory Results Cardiac Enzymes 09/13/24 09/14/24 09/14/24 Range/Units 18:35 00:19 05:57 Troponin I High Sens 66035.5 H* 71970.6 H* 64527.4 H* (0-20) pg/ml CBC 09/14/24 Range/Units 05:57 WBC 11.13 H (4.8-10.8) K/ul RBC 3.83 L (4.70-6.10) M/uL Hgb 11.6 L (14.0-18.0) g/dl Hct 35.3 L (42.0-52.0) % Plt Count 206 (130-400) K/uL Neut # (Auto) 8.98 H (1.40-6.50) K/uL Lymph # (Auto) 1.07 L (1.20-3.40) K/uL [place] # (Auto) 0.81 H (0.11-0.59) K/uL Eos # (Auto) 0.19 (0.00-0.50) K/uL Baso # (Auto) 0.03 (0.00-0.20) K/uL Comprehensive Metabolic Panel 09/14/24 Range/Units 05:57 Sodium 137 (136-145) mmol/L Potassium 4.1 D (3.5-5.1) mmol/L Chloride 92 L (98-107) mmol/L Carbon Dioxide 31 (21-32) mmol/L BUN 85 H (6-23) mg/dl Creatinine 14.93 H* D (0.6-1.4) mg/dl Glucose 158 H (70-99(Fasting)) mg/dl Calcium 9.0 (8.6-10.3) mg/dl Intake and Output 09/13/24 09/14/24 09/14/24 22:59 06:59 14:59 Intake Total 180.667 / 1639.667 390.5 / 1639.667 Output Total 100 / 701 100 / 701 1468 / 1468 Balance 80.667 / 938.667 290.5 / 938.667 -1468 / -1468 Intake: IV 180.667 / 599.667 50.5 / 599.667 Heparin 85905 Unit/500 ml D5w 180.667 / 438.667 0 / 438.667 25,000 units In 500 ml @ 0 UNITS/HR IV .Q0M BRITTANIE Rx#: [id number] Promethazine 12.5 mg In 50.5 ml 50.5 / 50.5 @ 202 mls/hr IV NOW STA Rx#: [id number] Oral 340 / 1040 Output: Urine 100 / 700 100 / 700 Peritoneal Dialysis 1468 / 1468 Ultrafiltration Amount Other: Weight 107.1 kg 108 kg 108 kg Weight Measurement Method Built in [facility] Built in [facility] Patient Weight 09/15/24 06:59 Weight 108 kg (3) CAD (coronary artery disease), [place] coronary artery Associated angina: with unstable angina [place] vs. transplanted heart: [place] heart Qualified Code(s): I25.110 - Atherosclerotic heart disease of [place] coronary artery with unstable angina pectoris
[2024-09-14] MEDS: FERRIC CITRATE 210 MG TAB PO SCH (11:39)
--- NOTE | 2024-09-14 14:02 | Nephrology Progress Note ---
Date of Service September 14, 2024 Assessment & Plan (1) End stage renal disease: Plan: 74/M with ESRD on PD since 01/2023 now admitted with NSTEMI and AFibb/rvr presented with Chest pain and SOB. last PD last night with UF 1.4 l. Slight e/o fluid overload with acute cardiac problem. K is 4.1--Continue Lokelma. PD tonight with be for 10-12 hrs and all 2.5% solution. at home he does for 10 hrs of 3000 ml fill and do 4 exchanges ( Mixed 2.5 and 1.5) (2) Chronic heart failure with reduced ejection fraction (HFrEF, <= 40%) and combined systolic and diastolic dysfunction: Plan: It appears Some drop in LVEF with NSTEMI and Afibb/RVR and there is some e/o fluid retention/CHF. Reviewed cards note and the plan of care. In Agreement (3) Atrial fibrillation with rapid ventricular response: Plan: On heparin drip. Amiodarone added. as of now no plan fo further cardiac Cath. Trop is very high--Does have NSTEMI. Also high from demand ischemia and being ESRD Admission and Anticipated Discharge Date Admission Date: September 12, 2024 Subjective seen for ESRD on PD. No shortness of breath or leg swelling. at the bedside. Tolerated PD last night with net UF 1.4 L Review of Systems 2 Review of Systems: All other systems were reviewed and negative except as noted in HPI Physical Exam 2 Physical Exam: General exam: Appears comfortable, no acute distress HEENT: Pupils are equal and reactive to light Neck: No JVD, neck is supple trachea is midline Respiratory system: Clear breath sounds bilaterally. Gastrointestinal: Abdomen is soft, non distended, non tender, bowel sounds are present CVS: Regular rate and rhythm. No murmurs, rubs or gallops Musculoskeletal: No joint or muscle tenderness Extremities: Non tender, no edema, peripheral pulses are present Neuro: Oriented, no tremors, no focal neurological deficits Skin: No rashes Results & Data Vital Signs (Past 12 Hours) Vital Signs Temp Pulse Pulse Pulse Resp BP BP 09/14/24 11:38 36.8 C 75 18 103/71 09/14/24 08:45 37.0 C 85 18 09/14/24 08:00 09/14/24 08:00 80 09/14/24 08:00 37.0 C 85 18 94/63 L 09/14/24 02:36 36.5 C 72 20 90/63 L Pulse Ox O2 Del Method 09/14/24 11:38 92 Room Air 09/14/24 08:45 09/14/24 08:00 Room Air 09/14/24 08:00 09/14/24 08:00 94 Room Air 09/14/24 02:36 92 Room Air Laboratory Results 09/14/24 05:57 09/14/24 05:57 WBC 11.13 H RBC 3.83 L MCV 92.2 MCH 30.3 MCHC 32.9 RDW Std Deviation 44.6 RDW Coeff of Isai 13.2 Plt Count 206 MPV 11.2
[2024-09-14] MEDS: POLYETHYLENE (MIRALAX) 17 GM PACK PO SCH (14:07)
--- NOTE | 2024-09-14 15:43 | Electrocardiogram Report ---
Test Reason : Blood Pressure : */* mmHG Vent. Rate : 66 BPM Atrial Rate : 66 BPM P-R Int : 164 ms QRS Dur : 98 ms QT Int : 432 ms P-R-T Axes : 106 -32 109 degrees QTcB Int : 452 ms Normal sinus rhythm Left axis deviation Left ventricular hypertrophy with repolarization abnormality ( R in aVL ) Abnormal ECG When compared with ECG of 13-Sep-2024 05:25, No significant change was found Confirmed by Zeferino Mast ([id number]) on 09/14/2024 3:43:45 PM Referred By: REFERRED SELF Confirmed By: Zeferino Mast
[2024-09-14] MEDS: METOPROLOL SUCC 25MG EXT REL TAB PO SCH (20:25)
--- NOTE | 2024-09-15 08:52 | Cardiology Progress Note ---
Date of Service September 15, 2024 Assessment & Plan (1) Atrial fibrillation with rapid ventricular response: (2) Non-ST elevation [place] (NSTEMI): (3) CAD (coronary artery disease), [place] coronary artery: (4) Chronic heart failure with reduced ejection fraction (HFrEF, <= 40%) and combined systolic and diastolic dysfunction: (5) End stage renal disease: Plan 74-year-old male presenting to hospital with unstable anginal symptoms in the setting of new onset rapid atrial fibrillation. Significantly elevated high- sensitivity troponin in setting of atrial fibrillation with rapid ventricular response. Chest pain resolved with spontaneous conversion to normal sinus rhythm. Echocardiogram demonstrating mild reduction of LV systolic function compared to previous. I am concerned about a new plaque rupture event given the significant elevated in troponin. Patient is currently chest pain free in sinus rhythm. Recommendations: * Amiodarone 200 mg 3 times daily to maintain sinus rhythm * Daily ECG during amiodarone loading * Monitor telemetry * IV heparin, aspirin, Brilinta, atorvastatin. * Reduce metoprolol to 25 mg twice daily. * Repeat cardiac enzymes * Discuss case further with patient's supplier specialist at [facility] (Dr. Cruz) to consider invasive options. Awaiting call back. * Urgent cardiac catheterization with any recurrent anginal symptoms. I spent a total of 75 minutes on the date of service in preparation, delivery, and documentation of the care provided to this patient, excluding any time spent in the performance of separately billed services. Addendum: Patient developed recurrent chest discomfort at approximately 3:[address] elevation. Case discussed with interventional cardiology. Cardiac catheterization will be performed for further evaluation. Patient agreeable to procedure. Family updated regarding clinical status. Micah Beach DO, [facility] 09/14/2024: -Patient is resting comfortably in bed with no acute concerns. Spouse at bedside. -Underwent cardiac catheterization s/p PCI with ALYSSA to the proximal circumflex in-stent thrombosis with new overlapping ALYSSA (4.5 x18mm [place]; postdilated with 5.0 NC). -Patient remains chest pain free. EKG this AM with no acute changes. Troponin continues to trend down. VS Stable -Labs stable. -Eating and drinking ok. -Cath site soft/non-tender, Positive pulse, motor sensation and no discharge or drainage. -Continue DAPT with Brilinta and ASA 81mg. -Continue Atorvastatin and Zetia -Review of telemetry shows SR with no acute events overnight. Will continue Amiodarone and Lopressor. Will discuss with Dr. Beach today if the plan is to start Eliquis today. Interventional cardiology has recommended that Triple therapy would be continued for 1 month and there after ASA would be discontinued. -Continue to monitor on telemetry. 09/15/2024: -Patient is resting comfortably without any acute cardiac concerns. Family at bedside -s/p PCI with ALYSSA to the Proximal circumflex on 09/13/24. Doing well. -Remains CP free. VS stable. Labs pending -Continue with DAPT with Brilinta and ASA 81mg. Started Eliquis 5mg PO BID. Patient is to remain on Triple therapy for 30 days. After 30 days, he will then discontinue ASA 81mg and remain on both Brilinta and Eliquis. Trend CBC now and outpatient closely. -Continue ATorvastatin and Zetia as part of GDMT -Continue Amiodarone and Lopressor. No acute events overnight on telemetry. -patient would benefit from Physical therapy. will leave at discretion of primary team. -Continue to monitor on telemetry during course of hospitalization. -When appropriate for discharge, patient's next follow up is currently not until January with Cardiology. will contact office to arrange close follow up 3-4 weeks post discharge along with non-fasting labs. Case has been discussed with Dr. Beach. Further recommendations regarding plan of care as per his assessment. I spent a total of 30 minutes on the date of service in preparation, delivery, documentation of the care provided to the patient excluding any time spent in the performance of separately billed services. HAILEE Joseph [facility] Admission and Anticipated Discharge Date Admission Date: September 12, 2024 Supervising Physician Co-Signing Physician Notes I have personally performed a history and physical examination on the patient. I have reviewed the advance practitioner's documentation, and I agree with, and take responsibility for the plan of care. Patient seen and examined at bedside. Feeling better today. No recurrent chest discomfort. Telemetry reveals sinus rhythm without recurrent atrial fibrillation. Tolerating amiodarone in addition to other cardiovascular medications. Complains of constipation. Recommendations: * Continue triple therapy with aspirin, Brilinta, and Eliquis for 1 month then discontinue low-dose aspirin. * Continue atorvastatin, and Zetia. * Metoprolol to tartrate transitioned to succinate formulation. * Continue amiodarone 200 mg 3 times daily while hospitalized. * Reduce amiodarone to 200 mg twice daily at discharge. * Continue twice daily amiodarone for 2 weeks post-discharge then reduce dose to 200 mg once daily. * PT/OT evaluation * Possible discharge in 24 to 48 hours I spent a total of 25 minutes on the date of service in preparation, delivery, and documentation of the care provided to this patient, excluding any time spent in the performance of separately billed services. Micah Beach DO, [facility] Subjective 09/15/2024: Patient seen and examined in follow up today. Feeling well from a cardiac perspective. no acute concerns. Family present at bedside at time of examination. Labs, vitals, diagnostics, telemetry and documentation reviewed. Telemetry reviewed showing SR rate 70's. No acute events overnight. Review of Systems Review of Systems: All systems reviewed & are unremarkable except as noted in HPI & below Physical Exam Constitutional: well developed and well nourished; no acute distress and not ill appearing Neck: normal visual inspection and trachea midline Respiratory: normal respiratory effort, lungs clear to auscultation Auscultation: no crackles, no rales, no rhonchi and no wheezes Cardiovascular: RRR, no murmur, no edema Heart Sounds: normal S1 and normal S2 Vessels: dorsalis pedis pulses present; no JVD Extremities: no edema Skin: no rashes, warm and dry Psychiatric: A+Ox3, euthymic affect Results & Data Vital Signs (Past 12 Hours) Vital Signs Temp Pulse Pulse Resp BP Pulse Ox O2 Del Method 09/15/24 08:34 36.9 C 74 18 09/15/24 07:36 36.9 C 74 18 86/53 L 92 Room Air 09/15/24 02:28 36.6 C 63 20 104/62 95 Room Air 09/14/24 23:16 69 09/14/24 22:30 36.5 C 72 20 116/75 93 Room Air Laboratory Results Intake and Output 09/14/24 09/15/24 09/15/24 22:59 06:59 14:59 Intake Total 100 / 580 Output Total 100 / 1669 41958 / 22903 Balance 100 / -1089 -100 / -1089 -06539 / -68250 Intake: Oral 100 / 580 Output: Urine 100 / 200 Peritoneal Dialysis 11665 / 71716 Ultrafiltration Amount Other: Weight 108 kg 103.7 kg 103.7 kg Weight Measurement Method Built in [facility] Built in Front [facility] Patient Weight 09/16/24 06:59 Weight 103.7 kg (3) CAD (coronary artery disease), [place] coronary artery Associated angina: with unstable angina [place] vs. transplanted heart: [place] heart Qualified Code(s): I25.110 - Atherosclerotic heart disease of [place] coronary artery with unstable angina pectoris
[2024-09-15] MEDS: APIXABAN 5 MG TABLET PO SCH (09:44)
--- NOTE | 2024-09-15 12:05 | Communication Note ---
Date of Service: September 15, 2024 Can have his home med Auryxia be ordered the way he was taking at home. Thank you. Dr Thompson Bruce
[2024-09-15 12:39] LABS: BUN Creatinine Ratio 5.6 (10-20); Calcium 8.8 mg/dl (8.6-10.3); Creatinine Clr Calc Pharmacy 5.4 ml/min; Potassium 4.1 mmol/L (3.5-5.1)
--- NOTE | 2024-09-15 13:04 | Electrocardiogram Report ---
Test Reason : Blood Pressure : */* mmHG Vent. Rate : 81 BPM Atrial Rate : 81 BPM P-R Int : 158 ms QRS Dur : 98 ms QT Int : 394 ms P-R-T Axes : 86 -23 92 degrees QTcB Int : 457 ms Normal sinus rhythm Possible Anterolateral infarct , age undetermined Abnormal ECG When compared with ECG of 13-Sep-2024 15:44, (unconfirmed) No significant change was found Confirmed by Zeferino Mast ([id number]) on 09/15/2024 1:03:46 PM Referred By: REFERRED SELF Confirmed By: Zeferino Mast
--- NOTE | 2024-09-15 13:25 | Electrocardiogram Report ---
Test Reason : Blood Pressure : */* mmHG Vent. Rate : 75 BPM Atrial Rate : 75 BPM P-R Int : 174 ms QRS Dur : 96 ms QT Int : 390 ms P-R-T Axes : 112 -27 109 degrees QTcB Int : 435 ms Normal sinus rhythm Anterolateral infarct (cited on or before 14-Sep-2024) Abnormal ECG When compared with ECG of 14-Sep-2024 05:54, (unconfirmed) No significant change Confirmed by Zeferino Mast ([id number]) on 09/15/2024 1:24:59 PM Referred By: REFERRED SELF Confirmed By: Zeferino Mast
--- NOTE | 2024-09-15 13:49 | Nephrology Progress Note ---
Date of Service September 15, 2024 Assessment & Plan (1) End stage renal disease: Plan: 74/M with ESRD on PD since 01/2023 now admitted with NSTEMI and AFibb/rvr presented with Chest pain and SOB. last PD last night with UF 2.1 l. Slight e/o fluid overload with acute cardiac problem. K is 4.1--Continue Lokelma. PD tonight with be for 10 hrs and all 2.5% solution. at home he does for 10 hrs of 3000 ml fill and do 4 exchanges ( Mixed 2.5 and 1.5) (2) Chronic heart failure with reduced ejection fraction (HFrEF, <= 40%) and combined systolic and diastolic dysfunction: Plan: It appears Some drop in LVEF with NSTEMI and Afibb/RVR and there is some e/o fluid retention/CHF. Reviewed cards note and the plan of care. In Agreement (3) Atrial fibrillation with rapid ventricular response: Plan: she had had NSTEMI. Also high from demand ischemia and being ESRD Admission and Anticipated Discharge Date Admission Date: September 12, 2024 Subjective seen for ESRD. He feels better today. No chest pain or shortness of breath. He had PD last night with net UF about 2 L Review of Systems 2 Review of Systems: All other systems were reviewed and negative except as noted in HPI Physical Exam 2 Physical Exam: General exam: Appears comfortable, no acute distress HEENT: Pupils are equal and reactive to light Neck: No JVD, neck is supple trachea is midline Respiratory system: Clear breath sounds bilaterally. Gastrointestinal: Abdomen is soft, non distended, non tender, bowel sounds are present CVS: Regular rate and rhythm. No murmurs, rubs or gallops Musculoskeletal: No joint or muscle tenderness Extremities: Non tender, no edema, peripheral pulses are present Neuro: Oriented, no tremors, no focal neurological deficits Skin: No rashes Results & Data Vital Signs (Past 12 Hours) Vital Signs Temp Pulse Resp BP Pulse Ox O2 Del Method 09/15/24 12:45 36.8 C 75 18 107/68 96 Room Air 09/15/24 08:45 95/46 L 09/15/24 08:34 36.9 C 74 18 09/15/24 07:36 36.9 C 74 18 86/53 L 92 Room Air 09/15/24 02:28 36.6 C 63 20 104/62 95 Room Air Laboratory Results 09/15/24 12:01
--- NOTE | 2024-09-15 14:13 | Hospitalist Progress Note ---
Date of Service September 15, 2024 Assessment & Plan (1) Atrial fibrillation with rapid ventricular response: Plan Assessment/plan Atrial fibrillation with RVR NSTEMI Patient presented to the hospital with intermittent chest pain EKG on admission consistent with atrial fibrillation with rapid ventricular rate along with ST and T wave changes ED provider will discussed with Dr. Corey from cardiology; recommended esmolol and heparin drip Echocardiogram done in March 2024 showed EF of 46%; large size apical, septal, anteroseptal and inferior wall motion abnormality with hypokinesis to decline disease of the segments. Grade 1 diastolic dysfunction. High sensitive troponin on admission was 275.9; up trended to 87,896.3. Repeat echocardiogram shows EF of 35 to 40% with large size apical, septal, anteroseptal, anterior and inferior wall motion abnormality with hypokinesis to dyskinesis of the segments. Patient was started on Cardizem drip and metoprolol; converted to normal sinus rhythm overnight on 09/12/2024. Patient is started on amiodarone for rhythm control at 3 times per day. Metoprolol decreased to 25 mg twice a day. Patient had recurrence of chest pain on 09/13; was taken to cardiac cath; circumflex was found to have 95% acute proximal in-stent thrombosis; successful PCI of proximal circumflex in-stent thrombosis with new overlapping ALYSSA. Continue on aspirin and Brilinta; possibly Eliquis to be added for new atrial fibrillation with triple therapy for 1 month and discontinue aspirin. Appreciate cardiology input and recommendation-Continue triple therapy for 30 days and after 30 days discontinue aspirin and the patient will remain on Brilinta and Eliquis Remains stable cardiac song and denies any significant symptoms Will get PT OT evaluation prior to discharge ESRD on peritoneal dialysis Hyperkalemia- resolved Nephrology consulted for continuation of dialysis Appreciate nephrology input and recommendation Will continue with renal suppressive medications GERDcontinue on Protonix Hyperlipidemiacontinue on Lipitor, Zetia Type 2 diabetes mellituscontinue on insulin CADrecently stent placed in June 2024; continue on Brilinta . Imdur on hold for now Full code DVT prophylaxis Dispositionfrom home; plan to obtain PT OT evaluation. Discussed with the Daughter Admission and Anticipated Discharge Date Admission Date: September 12, 2024 Subjective 09/15/2024 The patient was seen and examined in telemetry unit in presence of the daughter He has been feeling much better and denies any significant symptoms He wants his phosphate to be checked which will be done tomorrow Denies any cardiac symptoms and does not have any shortness of breath at rest Review of Systems Review of Systems: All systems reviewed and are unremarkable except as noted below Physical Exam Physical Exam: Lying in bed without any apparent distress Constitutional: well developed, well nourished, + ill appearing and + obese Eyes: PERRL, conjunctivae normal, anicteric sclerae ENMT: external ear and nose normal, oropharynx normal Neck: trachea midline, no thyromegaly Respiratory: no respiratory distress Auscultation: + diminished lung sounds; no crackles Cardiovascular: Rate/Rhythm: regular rate and regular rhythm; not tachycardic Heart Sounds: normal S1 and normal S2; no murmur Extremities: + edema ( 1+ bilaterally) Gastrointestinal (Abdomen): Inspection/Auscultation: + abdomen distended and normal bowel sounds Percussion/Palpation: abdomen soft; abdomen nontender Musculoskeletal: No acute arthritis involving any of the joint Neurologic: normal touch/pain/proprioception and moves all extremities; no focal motor deficits Psychiatric: A+Ox3, euthymic affect Lymphatic: no cervical or axillary lymphadenopathy Results & Data Results & Data Vital Signs (Past 12 Hours) Vital Signs Temp Pulse Resp BP Pulse Ox O2 Del Method 09/15/24 12:45 36.8 C 75 18 107/68 96 Room Air 09/15/24 08:45 95/46 L 09/15/24 08:34 36.9 C 74 18 09/15/24 07:36 36.9 C 74 18 86/53 L 92 Room Air 09/15/24 02:28 36.6 C 63 20 104/62 95 Room Air Laboratory Results [facility] 09/15/24 12:01 Sodium 137 Potassium 4.1 Chloride 92 L Carbon Dioxide 31 BUN 83 H Creatinine 14.80 H* Glucose 161 H Calcium 8.8 Medications Administered Current Inpatient Medications Acetaminophen (Acetaminophen 325 Mg Tab) 650 mg PO Q4H PRN PRN Reason: Pain or Fever Stop: 10/12/24 19:35 Amiodarone HCl (Amiodarone 200 Mg Tab) 200 mg PO TID [facility] Stop: 10/13/24 13:59 Last Admin: 09/15/24 08:47 Dose: 200 mg Apixaban (Apixaban 5 Mg Tablet) 5 mg PO BID [facility] Stop: 10/15/24 08:59 Last Admin: 09/15/24 09:44 Dose: 5 mg Aspirin (Aspirin 81 Mg Chew) 81 mg PO DAILY [facility] Stop: 10/13/24 10:29 Last Admin: 09/15/24 08:58 Dose: 81 mg Atorvastatin Calcium (Atorvastatin 40 Mg Tab) 80 mg PO DAILY [facility] Stop: 10/13/24 08:59 Last Admin: 09/15/24 08:47 Dose: 80 mg Dextrose (Dextrose 50% 50 Ml Syringe) 25 - 50 ml IV UD PRN; Protocol PRN Reason: Hypoglycemia Protocol Stop: 10/12/24 19:35 Ezetimibe (Ezetimibe 10 Mg Tab) 10 mg PO QAM [facility] Stop: 10/13/24 08:59 Last Admin: 09/15/24 08:46 Dose: 10 mg Ferric Citrate (Ferric Citrate 210 Mg Tab) 210 mg PO AC [facility] Stop: 10/14/24 10:44 Last Admin: 09/15/24 09:38 Dose: 210 mg Glucagon (Glucagon For Inj 1 Mg Vial) 1 mg SQ UD PRN; Protocol PRN Reason: Hypoglycemia Protocol Stop: 10/12/24 19:35 Glucose (Glucose 40% Gel 15 Gm Tube) 15 - 30 gm PO UD PRN; Protocol PRN Reason: Hypoglycemia Protocol Stop: 10/12/24 19:35 Glucose (Glucose 10 Tab/Tube) 4 - 8 tab PO UD PRN; Protocol PRN Reason: Hypoglycemia Protocol Stop: 10/12/24 19:35 Hydromorphone HCl (Hydromorphone Inj 0.5 Mg/0.5 Ml Syr) 0.25 mg IV Q4H PRN PRN Reason: Pain Stop: 09/26/24 19:35 Insulin Aspart (Insulin Aspart Per Unit Charge) 0 units SC ACHS [facility] Stop: 10/12/24 20:59 Last Admin: 09/15/24 12:42 Dose: 4 units Insulin Glargine (Lantus Per Unit Charge) 10 units SQ HS [facility] Stop: 10/12/24 20:59 Last Admin: 09/14/24 20:32 Dose: 10 units Metoprolol Succinate (Metoprolol Succ 25mg Ext Rel Tab) 25 mg PO BID [facility] Stop: 10/14/24 20:59 Last Admin: 09/15/24 09:57 Dose: Not Given Miscellaneous (Carbohydrates For Hypoglycemia ) 15 - 30 gm PO UD PRN PRN Reason: Hypoglycemia Protocol Stop: 10/12/24 19:35 Nitroglycerin (Nitroglycerin Sl 0.4 Mg/Tab Tab) 0.4 mg SL UD PRN PRN Reason: Chest Pain Stop: 10/12/24 22:45 Last Admin: 09/13/24 15:35 Dose: 0.4 mg Pantoprazole Sodium (Pantoprazole 40 Mg Tab) 40 mg PO QAM [facility] Stop: 10/13/24 08:59 Last Admin: 09/15/24 08:50 Dose: 40 mg Polyethylene Glycol (Polyethylene (Miralax) 17 Gm Pack) 17 gm PO BID [facility] Stop: 10/14/24 12:29 Last Admin: 09/15/24 08:50 Dose: 17 gm Ticagrelor (Ticagrelor 90 Mg Tab) 90 mg PO BID [facility] Stop: 10/13/24 08:59 Last Admin: 09/15/24 08:47 Dose: 90 mg Vitamin D (Cholecalciferol 25 Mcg (1000 Units) Tab) 25 mcg PO DAILY [facility] Stop: 10/13/24 08:59 Last Admin: 09/15/24 08:46 Dose: 25 mcg
[2024-09-15] MEDS: FERRIC CITRATE 210 MG TAB PO SCH (16:28)
[2024-09-15] MEDS: FERRIC CITRATE 210 MG TAB PO PRN (21:16)
[2024-09-16 07:21] LABS: BUN Creatinine Ratio 5.2 (10-20); Calcium 8.8 mg/dl (8.6-10.3); Creatinine Clr Calc Pharmacy 5.2 ml/min; Phosphorus 9.8 mg/dl (2.5-4.9); Potassium 3.6 mmol/L (3.5-5.1)
--- NOTE | 2024-09-16 10:09 | Nephrology Progress Note ---
Date of Service September 16, 2024 Assessment & Plan (1) End stage renal disease: Plan: 74/M with ESRD on PD since 01/2023 now admitted with NSTEMI and AFibb/rvr presented with Chest pain and SOB. last PD last night with UF 1.9L K is 3.6; no K binder needed cont Auryxia per home regimen no e/o exit site issues but will cont to monitor at home he does for 10 hrs of 3000 ml fill and do 4 exchanges ( all 2.5%) with creatinine increasing and now unacceptable will increase # exchs for better clearance > 14 hours for 6 x 3L exchanges will 2 x 2.5% and 4 x 1.5% b/c seems volume appropriate currently; likely to d/c home on longer rx and pt / aware Care coordinated w/ Dr Bruce in person re UF goals, phos management, change in prescription, criteria for d/c; we are in agreement. (2) Atrial fibrillation with rapid ventricular response: Plan: she had had NSTEMI. Also high from demand ischemia and being ESRD (3) Hyperphosphatemia: Plan: phos 9.8; has been receiving binders though only yesterday PM w/ snack and missed one other dose; reports some doses given but not w/ meals; orders reviewed and appear to be fixed up now -continue auryxia ac/ snack one tab -check iron stores in AM -intensified PD rx should improve this some -also started phoslo 2 ac/1 snack > not likely to be d/c on this Admission and Anticipated Discharge Date Admission Date: September 12, 2024 Subjective feeling better overall; no further chest pain, no sob, no edema; first BM in several days this am; Agatha concerned about ?drainage at PD exit site; exchs have been going well Review of Systems 2 Review of Systems: All systems reviewed & are unremarkable except as noted in Subjective Physical Exam 2 Constitutional: well developed, well nourished and cooperative; no acute distress Eyes: EOM intact bilaterally ENMT: Mouth: + dry oral mucous membranes Respiratory: normal respiratory effort Auscultation: + diminished lung sounds Cardiovascular: RRR, no murmur, no edema Gastrointestinal (Abdomen): Inspection/Auscultation: normal bowel sounds and + abdominal surgical drain present (PD cath exam w/ good tech> no drainage; small crust; min redness) Percussion/Palpation: abdomen soft; abdomen nontender Musculoskeletal: Extremities: strength 5/5 throughout Skin: no rashes, warm and dry Neurologic: block, fluent speech, no tremor Psychiatric: Orientation: alert and oriented x 3 Results & Data Vital Signs (Past 12 Hours) Vital Signs Temp Pulse Pulse Pulse Resp BP Pulse Ox 09/16/24 09:26 36.5 C 98 H 98 H 18 09/16/24 08:00 36.6 C 74 19 102/70 92 09/16/24 02:39 36.3 C L 79 20 106/73 92 09/15/24 22:54 81 09/15/24 22:35 37.0 C 81 20 108/74 92 O2 Del Method 09/16/24 09:26 09/16/24 08:00 Room Air 09/16/24 02:39 Room Air 09/15/24 22:54 09/15/24 22:35 Room Air Laboratory Results 09/14/24 05:57 09/16/24 05:40 phos 9.8
--- NOTE | 2024-09-16 12:06 | Cardiology Progress Note ---
Date of Service September 16, 2024 Assessment & Plan (1) Atrial fibrillation with rapid ventricular response: (2) Non-ST elevation CT (NSTEMI): (3) CAD (coronary artery disease), tetlin coronary artery: (4) Chronic heart failure with reduced ejection fraction (HFrEF, <= 40%) and combined systolic and diastolic dysfunction: (5) End stage renal disease: Plan 74-year-old male presenting to hospital with unstable anginal symptoms in the setting of new onset rapid atrial fibrillation. Significantly elevated high- sensitivity troponin in setting of atrial fibrillation with rapid ventricular response. Chest pain resolved with spontaneous conversion to normal sinus rhythm. Echocardiogram demonstrating mild reduction of LV systolic function compared to previous. I am concerned about a new plaque rupture event given the significant elevated in troponin. Patient is currently chest pain free in sinus rhythm. Recommendations: * Amiodarone 200 mg 3 times daily to maintain sinus rhythm * Daily ECG during amiodarone loading * Monitor telemetry * IV heparin, aspirin, Brilinta, atorvastatin. * Reduce metoprolol to 25 mg twice daily. * Repeat cardiac enzymes * Discuss case further with patient's cold storage superintendent at [facility] (Dr. Cruz) to consider invasive options. Awaiting call back. * Urgent cardiac catheterization with any recurrent anginal symptoms. I spent a total of 75 minutes on the date of service in preparation, delivery, and documentation of the care provided to this patient, excluding any time spent in the performance of separately billed services. Addendum: Patient developed recurrent chest discomfort at approximately 3:[address] elevation. Case discussed with interventional cardiology. Cardiac catheterization will be performed for further evaluation. Patient agreeable to procedure. Family updated regarding clinical status. Micah Beach DO, [facility] 09/14/2024: -Patient is resting comfortably in bed with no acute concerns. Spouse at bedside. -Underwent cardiac catheterization s/p PCI with ALYSSA to the proximal circumflex in-stent thrombosis with new overlapping ALYSSA (4.5 x18mm [place]; postdilated with 5.0 NC). -Patient remains chest pain free. EKG this AM with no acute changes. Troponin continues to trend down. VS Stable -Labs stable. -Eating and drinking ok. -Cath site soft/non-tender, Positive pulse, motor sensation and no discharge or drainage. -Continue DAPT with Brilinta and ASA 81mg. -Continue Atorvastatin and Zetia -Review of telemetry shows SR with no acute events overnight. Will continue Amiodarone and Lopressor. Will discuss with Dr. Beach today if the plan is to start Eliquis today. Interventional cardiology has recommended that Triple therapy would be continued for 1 month and there after ASA would be discontinued. -Continue to monitor on telemetry. 09/15/2024: -Patient is resting comfortably without any acute cardiac concerns. Family at bedside -s/p PCI with ALYSSA to the Proximal circumflex on 09/13/24. Doing well. -Remains CP free. VS stable. Labs pending -Continue with DAPT with Brilinta and ASA 81mg. Started Eliquis 5mg PO BID. Patient is to remain on Triple therapy for 30 days. After 30 days, he will then discontinue ASA 81mg and remain on both Brilinta and Eliquis. Trend CBC now and outpatient closely. -Continue ATorvastatin and Zetia as part of GDMT -Continue Amiodarone and Lopressor. No acute events overnight on telemetry. -patient would benefit from Physical therapy. will leave at discretion of primary team. -Continue to monitor on telemetry during course of hospitalization. -When appropriate for discharge, patient's next follow up is currently not until January with Cardiology. will contact office to arrange close follow up 3-4 weeks post discharge along with non-fasting labs. 09/16/2024 No further angina, no further atrial fibrillation. Still fatigued will address heart rate and blood pressure with medications plan as previously outlined for triple anticoagulant therapy x 30 days then dual therapy with Brilinta and Eliquis Will continue amiodarone 3 times daily while in hospital then discharged on 200 twice daily. EKG today assess QT interval Maintain telemetry overnight Admission and Anticipated Discharge Date Admission Date: September 12, 2024 Subjective Patient was seen and personally examined. Chart medications and telemetry reviewed. Complex history well-known and events since admission noted. Complains of generalized fatigue and constipation. No further chest pain. Review of Systems Review of Systems: All systems reviewed & are unremarkable except as noted in Subjective Physical Exam Constitutional: well developed and well nourished; no acute distress and not ill appearing Neck: normal visual inspection and trachea midline Respiratory: normal respiratory effort, lungs clear to auscultation normal respiratory effort; no respiratory distress Auscultation: no crackles, no rales, no rhonchi and no wheezes Cardiovascular: RRR, no murmur, no edema Rate/Rhythm: regular rate and regular rhythm Heart Sounds: normal S1 and normal S2; no murmur Vessels: dorsalis pedis pulses present; no JVD Extremities: no edema Gastrointestinal (Abdomen): Inspection/Auscultation: abdomen normal to inspection and normal bowel sounds; abdomen not distended Percussion/Palpation: abdomen soft; abdomen nontender, no guarding and abdomen not rigid Skin: no rashes, warm and dry Psychiatric: A+Ox3, euthymic affect Results & Data Vital Signs (Past 12 Hours) Vital Signs Temp Pulse Pulse Resp BP Pulse Ox O2 Del Method 09/16/24 11:49 36.7 C 74 19 96/62 L 95 Room Air 09/16/24 09:26 36.5 C 98 H 98 H 18 09/16/24 08:00 36.6 C 74 19 102/70 92 Room Air 09/16/24 02:39 36.3 C L 79 20 106/73 92 Room Air Laboratory Results Laboratory Results - last 24 hr 09/15/24 09/15/24 09/15/24 12:01 16:27 19:57 Sodium 137 Potassium 4.1 Chloride 92 L Carbon Dioxide 31 Anion Gap 14 H BUN 83 H Creatinine 14.80 H* Est Cr Clr Drug Dosing 5.4 eGFR 3.13 BUN/Creatinine Ratio 5.6 L Glucose 161 H POC Glucose 181 H 152 H Calcium 8.8 Phosphorus Magnesium 09/16/24 09/16/24 09/16/24 05:40 07:27 11:38 Sodium 137 Potassium 3.6 Chloride 93 L Carbon Dioxide 26 Anion Gap 18 H BUN 80 H Creatinine 15.28 H* D Est Cr Clr Drug Dosing 5.2 eGFR 3.01 BUN/Creatinine Ratio 5.2 L Glucose 166 H POC Glucose 163 H 217 H Calcium 8.8 Phosphorus 9.8 H Magnesium 3.0 H (3) CAD (coronary artery disease), [place] coronary artery Associated angina: with unstable angina [place] vs. transplanted heart: [place] heart Qualified Code(s): I25.110 - Atherosclerotic heart disease of [place] coronary artery with unstable angina pectoris
--- NOTE | 2024-09-16 13:39 | Hospitalist Progress Note ---
Date of Service September 16, 2024 Assessment & Plan (1) Atrial fibrillation with rapid ventricular response: Plan Assessment/plan Atrial fibrillation with RVR NSTEMI Patient presented to the hospital with intermittent chest pain EKG on admission consistent with atrial fibrillation with rapid ventricular rate along with ST and T wave changes ED provider will discussed with Dr. Corey from cardiology; recommended esmolol and heparin drip Echocardiogram done in March 2024 showed EF of 46%; large size apical, septal, anteroseptal and inferior wall motion abnormality with hypokinesis to decline disease of the segments. Grade 1 diastolic dysfunction. High sensitive troponin on admission was 275.9; up trended to 87,896.3. Repeat echocardiogram shows EF of 35 to 40% with large size apical, septal, anteroseptal, anterior and inferior wall motion abnormality with hypokinesis to dyskinesis of the segments. Patient was started on Cardizem drip and metoprolol; converted to normal sinus rhythm overnight on 09/12/2024. Patient is started on amiodarone for rhythm control at 3 times per day. Metoprolol decreased to 25 mg twice a day. Patient had recurrence of chest pain on 09/13; was taken to cardiac cath; circumflex was found to have 95% acute proximal in-stent thrombosis; successful PCI of proximal circumflex in-stent thrombosis with new overlapping ALYSSA. Continue on aspirin and Brilinta; possibly Eliquis to be added for new atrial fibrillation with triple therapy for 1 month and discontinue aspirin. Appreciate cardiology input and recommendation-Continue triple therapy for 30 days and after 30 days discontinue aspirin and the patient will remain on Brilinta and Eliquis Remains stable cardiac song and denies any significant symptoms Will get PT OT evaluation prior to discharge- awaiting PT and OT evaluation Denies any cardiac symptoms and no respiratory symptoms and remains hemodynamically stable Likely discharge tomorrow ESRD on peritoneal dialysis Hyperkalemia- resolved Nephrology consulted for continuation of dialysis Appreciate nephrology input and recommendation Will continue with renal suppressive medications Discussed with the phone banker about high phosphate Will have longer peritoneal dialysis as an outpatient Likely discharge tomorrow GERDcontinue on Protonix Hyperlipidemiacontinue on Lipitor, Zetia Type 2 diabetes mellituscontinue on insulin CADrecently stent placed in June 2024; continue on Brilinta . Imdur on hold for now Full code DVT prophylaxis Dispositionfrom home; plan to obtain PT OT evaluation. Discussed with the Daughter Discussed with the Admission and Anticipated Discharge Date Admission Date: September 12, 2024 Subjective 09/15/2024 The patient was seen and examined in telemetry unit in presence of the daughter He has been feeling much better and denies any significant symptoms He wants his phosphate to be checked which will be done tomorrow Denies any cardiac symptoms and does not have any shortness of breath at rest 09/16/2024 The patient was seen and examined in telemetry unit He has been feeling much better but is still remains weak Denies any cardiac symptoms Has not had any physical therapy yet Review of Systems Review of Systems: All systems reviewed and are unremarkable except as noted below Physical Exam Physical Exam: Lying in bed without any apparent distress Constitutional: well developed, well nourished, + ill appearing and + obese Eyes: PERRL, conjunctivae normal, anicteric sclerae ENMT: external ear and nose normal, oropharynx normal Neck: trachea midline, no thyromegaly Respiratory: no respiratory distress Auscultation: + diminished lung sounds; no crackles Cardiovascular: Rate/Rhythm: regular rate and regular rhythm; not tachycardic Heart Sounds: normal S1 and normal S2; no murmur Extremities: + edema ( 1+ bilaterally) Gastrointestinal (Abdomen): Inspection/Auscultation: + abdomen distended and normal bowel sounds Percussion/Palpation: abdomen soft; abdomen nontender Neurologic: normal touch/pain/proprioception and moves all extremities; no focal motor deficits Psychiatric: A+Ox3, euthymic affect Lymphatic: no cervical or axillary lymphadenopathy Results & Data Results & Data Vital Signs (Past 12 Hours) Vital Signs Temp Pulse Pulse Resp BP Pulse Ox O2 Del Method 09/16/24 11:49 36.7 C 74 19 96/62 L 95 Room Air 09/16/24 09:26 36.5 C 98 H 98 H 18 09/16/24 08:00 36.6 C 74 19 102/70 92 Room Air 09/16/24 02:39 36.3 C L 79 20 106/73 92 Room Air Laboratory Results [facility] 09/16/24 05:40 Sodium 137 Potassium 3.6 Chloride 93 L Carbon Dioxide 26 BUN 80 H Creatinine 15.28 H* D Glucose 166 H Calcium 8.8 Medications Administered Current Inpatient Medications Acetaminophen (Acetaminophen 325 Mg Tab) 650 mg PO Q4H PRN PRN Reason: Pain or Fever Stop: 10/12/24 19:35 Amiodarone HCl (Amiodarone 200 Mg Tab) 200 mg PO TID [facility] Stop: 10/13/24 13:59 Last Admin: 09/16/24 13:10 Dose: 200 mg Apixaban (Apixaban 5 Mg Tablet) 5 mg PO BID [facility] Stop: 10/15/24 08:59 Last Admin: 09/16/24 08:59 Dose: 5 mg Aspirin (Aspirin 81 Mg Chew) 81 mg PO DAILY [facility] Stop: 10/13/24 10:29 Last Admin: 09/16/24 08:58 Dose: 81 mg Atorvastatin Calcium (Atorvastatin 40 Mg Tab) 80 mg PO DAILY [facility] Stop: 10/13/24 08:59 Last Admin: 09/16/24 08:57 Dose: 80 mg Calcium Acetate (Calcium Acetate 667 Mg Cap/Tab) 667 mg PO TID PRN PRN Reason: give with snacks Stop: 10/16/24 12:14 Calcium Acetate (Calcium Acetate 667 Mg Cap/Tab) 1,334 mg PO TIDM [facility] Stop: 10/16/24 16:59 Dextrose (Dextrose 50% 50 Ml Syringe) 25 - 50 ml IV UD PRN; Protocol PRN Reason: Hypoglycemia Protocol Stop: 10/12/24 19:35 Ezetimibe (Ezetimibe 10 Mg Tab) 10 mg PO QAM [facility] Stop: 10/13/24 08:59 Last Admin: 09/16/24 08:57 Dose: 10 mg Ferric Citrate (Ferric Citrate 210 Mg Tab) 420 mg PO AC [facility] Stop: 10/15/24 16:29 Last Admin: 09/16/24 11:41 Dose: 420 mg Ferric Citrate (Ferric Citrate 210 Mg Tab) 210 mg PO BID PRN PRN Reason: SNACK Stop: 10/15/24 16:10 Last Admin: 09/15/24 21:16 Dose: 210 mg Glucagon (Glucagon For Inj 1 Mg Vial) 1 mg SQ UD PRN; Protocol PRN Reason: Hypoglycemia Protocol Stop: 10/12/24 19:35 Glucose (Glucose 40% Gel 15 Gm Tube) 15 - 30 gm PO UD PRN; Protocol PRN Reason: Hypoglycemia Protocol Stop: 10/12/24 19:35 Glucose (Glucose 10 Tab/Tube) 4 - 8 tab PO UD PRN; Protocol PRN Reason: Hypoglycemia Protocol Stop: 10/12/24 19:35 Hydromorphone HCl (Hydromorphone Inj 0.5 Mg/0.5 Ml Syr) 0.25 mg IV Q4H PRN PRN Reason: Pain Stop: 09/26/24 19:35 Insulin Aspart (Insulin Aspart Per Unit Charge) 0 units SC ACHS [facility] Stop: 10/12/24 20:59 Last Admin: 09/16/24 12:16 Dose: 6 units Insulin Glargine (Lantus Per Unit Charge) 10 units SQ HS [facility] Stop: 10/12/24 20:59 Last Admin: 09/15/24 20:51 Dose: 10 units Metoprolol Succinate (Metoprolol Succ 25mg Ext Rel Tab) 12.5 mg PO BID [facility] Stop: 10/16/24 20:59 Miscellaneous (Carbohydrates For Hypoglycemia ) 15 - 30 gm PO UD PRN PRN Reason: Hypoglycemia Protocol Stop: 10/12/24 19:35 Nitroglycerin (Nitroglycerin Sl 0.4 Mg/Tab Tab) 0.4 mg SL UD PRN PRN Reason: Chest Pain Stop: 10/12/24 22:45 Last Admin: 09/13/24 15:35 Dose: 0.4 mg Pantoprazole Sodium (Pantoprazole 40 Mg Tab) 40 mg PO QAM [facility] Stop: 10/13/24 08:59 Last Admin: 09/16/24 08:57 Dose: 40 mg Polyethylene Glycol (Polyethylene (Miralax) 17 Gm Pack) 17 gm PO BID [facility] Stop: 10/14/24 12:29 Last Admin: 09/16/24 07:42 Dose: 17 gm Ticagrelor (Ticagrelor 90 Mg Tab) 90 mg PO BID [facility] Stop: 10/13/24 08:59 Last Admin: 09/16/24 08:57 Dose: 90 mg Vitamin D (Cholecalciferol 25 Mcg (1000 Units) Tab) 25 mcg PO DAILY [facility] Stop: 10/13/24 08:59 Last Admin: 09/16/24 08:58 Dose: 25 mcg
[2024-09-16] MEDS: CALCIUM ACETATE 667 MG CAP/TAB PO SCH (16:31)
[2024-09-16] MEDS: CALCIUM ACETATE 667 MG CAP/TAB PO PRN (20:44)
[2024-09-16] MEDS: METOPROLOL SUCC 25MG EXT REL TAB PO SCH (20:46)
[2024-09-16 23:22] VITALS: O2SAT 93
[2024-09-17 07:09] LABS: BUN Creatinine Ratio 5.1 (10-20); Magnesium 3.1 mg/dl (1.7-2.4)
--- NOTE | 2024-09-17 11:18 | Hospitalist Progress Note ---
Date of Service September 17, 2024 Assessment & Plan (1) Atrial fibrillation with rapid ventricular response: Plan Assessment/plan Atrial fibrillation with RVR NSTEMI Patient presented to the hospital with intermittent chest pain EKG on admission consistent with atrial fibrillation with rapid ventricular rate along with ST and T wave changes ED provider will discussed with Dr. Corey from cardiology; recommended esmolol and heparin drip Echocardiogram done in March 2024 showed EF of 46%; large size apical, septal, anteroseptal and inferior wall motion abnormality with hypokinesis to decline disease of the segments. Grade 1 diastolic dysfunction. High sensitive troponin on admission was 275.9; up trended to 87,896.3. Repeat echocardiogram shows EF of 35 to 40% with large size apical, septal, anteroseptal, anterior and inferior wall motion abnormality with hypokinesis to dyskinesis of the segments. Patient was started on Cardizem drip and metoprolol; converted to normal sinus rhythm overnight on 09/12/2024. Patient is started on amiodarone for rhythm control at 3 times per day. Metoprolol decreased to 25 mg twice a day. Patient had recurrence of chest pain on 09/13; was taken to cardiac cath; circumflex was found to have 95% acute proximal in-stent thrombosis; successful PCI of proximal circumflex in-stent thrombosis with new overlapping ALYSSA. Continue on aspirin and Brilinta; possibly Eliquis to be added for new atrial fibrillation with triple therapy for 1 month and discontinue aspirin. Appreciate cardiology input and recommendation-Continue triple therapy for 30 days and after 30 days discontinue aspirin and the patient will remain on Brilinta and Eliquis Remains stable cardiac song and denies any significant symptoms Will get PT OT evaluation prior to discharge- awaiting PT and OT evaluation Denies any cardiac symptoms and no respiratory symptoms and remains hemodynamically stable Likely discharge tomorrow Denies any cardiac symptoms at rest and the rate is controlled at 75/min Will continue current medications as advised by the marketing communications manager and the patient will be discharged this afternoon ESRD on peritoneal dialysis Hyperkalemia- resolved Nephrology consulted for continuation of dialysis Appreciate nephrology input and recommendation Will continue with renal suppressive medications Discussed with the chain person about high phosphate Will have longer peritoneal dialysis as an outpatient Peritoneal dialysis duration will be increased and chain person will take care of that part GERDcontinue on Protonix Hyperlipidemiacontinue on Lipitor, Zetia Type 2 diabetes mellituscontinue on insulin CADrecently stent placed in June 2024; continue on Brilinta . Imdur on hold for now Full code DVT prophylaxis Dispositionfrom home; plan to obtain PT OT evaluation. Discussed with the Daughter Discussed with the Admission and Anticipated Discharge Date Admission Date: September 12, 2024 Subjective 09/15/2024 The patient was seen and examined in telemetry unit in presence of the daughter He has been feeling much better and denies any significant symptoms He wants his phosphate to be checked which will be done tomorrow Denies any cardiac symptoms and does not have any shortness of breath at rest 09/16/2024 The patient was seen and examined in telemetry unit He has been feeling much better but is still remains weak Denies any cardiac symptoms Has not had any physical therapy yet 09/17/2024 The patient was seen and examined in telemetry unit in presence of the He has been stable and denies any chest pain, palpitation or shortness of breath at rest Has had physical therapy and recommended home with home PT He will be discharged this afternoon Review of Systems Review of Systems: All systems reviewed and are unremarkable except as noted below Physical Exam Physical Exam: Lying in bed without any apparent distress Constitutional: well developed, well nourished, + ill appearing and + obese Eyes: PERRL, conjunctivae normal, anicteric sclerae ENMT: external ear and nose normal, oropharynx normal Neck: trachea midline, no thyromegaly Respiratory: no respiratory distress Auscultation: + diminished lung sounds; no crackles Cardiovascular: Rate/Rhythm: regular rate and regular rhythm; not tachycardic Heart Sounds: normal S1 and normal S2; no murmur Extremities: + edema ( 1+ bilaterally) Gastrointestinal (Abdomen): Inspection/Auscultation: + abdomen distended and normal bowel sounds Percussion/Palpation: abdomen soft; abdomen nontender Musculoskeletal: No acute arthritis involving any of the joint Neurologic: normal touch/pain/proprioception and moves all extremities; no focal motor deficits Psychiatric: A+Ox3, euthymic affect Lymphatic: no cervical or axillary lymphadenopathy Results & Data Results & Data Vital Signs (Past 12 Hours) Vital Signs Temp Pulse Pulse Pulse Resp BP BP 09/17/24 09:25 36.5 C 75 18 09/17/24 07:45 36.5 C 78 20 100/72 09/17/24 07:39 76 09/17/24 03:43 36.5 C 72 19 92/54 L 09/17/24 01:24 94/59 L 09/16/24 23:24 74 Pulse Ox O2 Del Method 09/17/24 09:25 09/17/24 07:45 93 Room Air 09/17/24 07:39 09/17/24 03:43 93 Room Air 09/17/24 01:24 09/16/24 23:24 Laboratory Results [facility] 09/17/24 05:33 Sodium 139 Potassium 4.0 Chloride 93 L Carbon Dioxide 28 BUN 80 H Creatinine 15.70 H* D Glucose 157 H Calcium 9.0 Medications Administered Current Inpatient Medications Acetaminophen (Acetaminophen 325 Mg Tab) 650 mg PO Q4H PRN PRN Reason: Pain or Fever Stop: 10/12/24 19:35 Amiodarone HCl (Amiodarone 200 Mg Tab) 200 mg PO TID [facility] Stop: 10/13/24 13:59 Last Admin: 09/17/24 10:14 Dose: 200 mg Apixaban (Apixaban 5 Mg Tablet) 5 mg PO BID [facility] Stop: 10/15/24 08:59 Last Admin: 09/17/24 10:14 Dose: 5 mg Aspirin (Aspirin 81 Mg Chew) 81 mg PO DAILY [facility] Stop: 10/13/24 10:29 Last Admin: 09/17/24 10:18 Dose: 81 mg Atorvastatin Calcium (Atorvastatin 40 Mg Tab) 80 mg PO DAILY [facility] Stop: 10/13/24 08:59 Last Admin: 09/17/24 10:14 Dose: 80 mg Calcium Acetate (Calcium Acetate 667 Mg Cap/Tab) 667 mg PO TID PRN PRN Reason: give with snacks Stop: 10/16/24 12:14 Last Admin: 09/16/24 20:44 Dose: 667 mg Calcium Acetate (Calcium Acetate 667 Mg Cap/Tab) 1,334 mg PO TIDM [facility] Stop: 10/16/24 16:59 Last Admin: 09/17/24 10:12 Dose: Not Given Dextrose (Dextrose 50% 50 Ml Syringe) 25 - 50 ml IV UD PRN; Protocol PRN Reason: Hypoglycemia Protocol Stop: 10/12/24 19:35 Ezetimibe (Ezetimibe 10 Mg Tab) 10 mg PO QAM [facility] Stop: 10/13/24 08:59 Last Admin: 09/17/24 10:14 Dose: 10 mg Ferric Citrate (Ferric Citrate 210 Mg Tab) 420 mg PO AC [facility] Stop: 10/15/24 16:29 Last Admin: 09/17/24 08:49 Dose: Not Given Ferric Citrate (Ferric Citrate 210 Mg Tab) 210 mg PO BID PRN PRN Reason: SNACK Stop: 10/15/24 16:10 Last Admin: 09/16/24 20:44 Dose: 210 mg Glucagon (Glucagon For Inj 1 Mg Vial) 1 mg SQ UD PRN; Protocol PRN Reason: Hypoglycemia Protocol Stop: 10/12/24 19:35 Glucose (Glucose 40% Gel 15 Gm Tube) 15 - 30 gm PO UD PRN; Protocol PRN Reason: Hypoglycemia Protocol Stop: 10/12/24 19:35 Glucose (Glucose 10 Tab/Tube) 4 - 8 tab PO UD PRN; Protocol PRN Reason: Hypoglycemia Protocol Stop: 10/12/24 19:35 Hydromorphone HCl (Hydromorphone Inj 0.5 Mg/0.5 Ml Syr) 0.25 mg IV Q4H PRN PRN Reason: Pain Stop: 09/26/24 19:35 Insulin Aspart (Insulin Aspart Per Unit Charge) 0 units SC ACHS [facility] Stop: 10/12/24 20:59 Last Admin: 09/17/24 08:36 Dose: 6 units Insulin Glargine (Lantus Per Unit Charge) 10 units SQ HS [facility] Stop: 10/12/24 20:59 Last Admin: 09/16/24 20:42 Dose: 10 units Metoprolol Succinate (Metoprolol Succ 25mg Ext Rel Tab) 12.5 mg PO BID [facility] Stop: 10/16/24 20:59 Last Admin: 09/17/24 10:14 Dose: 12.5 mg Miscellaneous (Carbohydrates For Hypoglycemia ) 15 - 30 gm PO UD PRN PRN Reason: Hypoglycemia Protocol Stop: 10/12/24 19:35 Nitroglycerin (Nitroglycerin Sl 0.4 Mg/Tab Tab) 0.4 mg SL UD PRN PRN Reason: Chest Pain Stop: 10/12/24 22:45 Last Admin: 09/13/24 15:35 Dose: 0.4 mg Pantoprazole Sodium (Pantoprazole 40 Mg Tab) 40 mg PO QAM [facility] Stop: 10/13/24 08:59 Last Admin: 09/17/24 10:14 Dose: 40 mg Polyethylene Glycol (Polyethylene (Miralax) 17 Gm Pack) 17 gm PO BID [facility] Stop: 10/14/24 12:29 Last Admin: 09/17/24 08:55 Dose: 17 gm Ticagrelor (Ticagrelor 90 Mg Tab) 90 mg PO BID [facility] Stop: 10/13/24 08:59 Last Admin: 09/17/24 10:15 Dose: 90 mg Vitamin D (Cholecalciferol 25 Mcg (1000 Units) Tab) 25 mcg PO DAILY [facility] Stop: 10/13/24 08:59 Last Admin: 09/17/24 10:14 Dose: 25 mcg
--- NOTE | 2024-09-17 11:33 | Nephrology Progress Note ---
Date of Service September 17, 2024 Assessment & Plan (1) End stage renal disease: Plan: 74/M with ESRD on PD since 01/2023 now admitted with NSTEMI and AFibb/rvr presented with Chest pain and SOB. he is a low average transporter last PD last night with UF 2.1L; no e/o membrane failure; volume status acceptable and UF appropriate K is 4; no K binder needed cont Auryxia per home regimen no e/o exit site issues but will cont to monitor at home he does for 10 hrs of 3000 ml fill and do 4 exchanges ( all 2.5%) but with progressive creatinine increase will modify RX: -MDE today 1.5% to dwell 3-4 hrs -then at home change rx to 3L fills x 4 exchs over 14 hours and ico 2L during day. Reviewed RX change w/ pt and ; they are in agreement; OP PD nurse and coordinating supplies. -repeat labs Wednesday 09/20 at [facility] PD clinic >>d/c on his customary OP binders pls (continue auryxia, stop phosLo) -no specific f/u appt needed w/ nephro > I will see him in PD clinic Care coordinated w/ Dr Bruce via [employer]Text re change in PD rx and d/c medications; dialysis /lab f/u dispo; we are in agreement. (2) Atrial fibrillation with rapid ventricular response: Plan: he had NSTEMI. Also high from demand ischemia and being ESRD (3) Hyperphosphatemia: Plan: phos 9.8; some issues getting binders w/ meds but fixed up now. T Sat this am 40%; auryxia ok to continue for now -continue auryxia ac/ snack one tab -intensified PD rx should improve this some -also started phoslo 2 ac/1 snack in house but no need to d/c on this Admission and Anticipated Discharge Date Admission Date: September 12, 2024 Subjective no interval events. 2.1 L UF. no n/v. minimal po still but eating. mild sob not worsening. no chest pain. exchanges went well. waiting on PT eval but likely d/c home today. BM today +. bled on his back multiple spots w/ scrubbing his back. Review of Systems 2 Review of Systems: All systems reviewed & are unremarkable except as noted in Subjective Physical Exam 2 Constitutional: well developed, well nourished and cooperative; no acute distress Eyes: EOM intact bilaterally ENMT: Mouth: + dry oral mucous membranes Respiratory: normal respiratory effort Auscultation: + diminished lung sounds Cardiovascular: RRR, no murmur, no edema Gastrointestinal (Abdomen): Inspection/Auscultation: normal bowel sounds and + abdominal surgical drain present Percussion/Palpation: abdomen soft; abdomen nontender Musculoskeletal: Extremities: strength 5/5 throughout Skin: no rashes, warm and dry Psychiatric: Orientation: alert and oriented x 3 Results & Data Vital Signs (Past 12 Hours) Vital Signs Temp Pulse Pulse Pulse Resp BP BP 09/17/24 09:25 36.5 C 75 18 09/17/24 07:45 36.5 C 78 20 100/72 09/17/24 07:39 76 09/17/24 03:43 36.5 C 72 19 92/54 L 09/17/24 01:24 94/59 L Pulse Ox O2 Del Method 09/17/24 09:25 09/17/24 07:45 93 Room Air 09/17/24 07:39 09/17/24 03:43 93 Room Air 09/17/24 01:24 Laboratory Results 09/14/24 05:57 09/17/24 05:33
[2024-09-17 11:38] VITALS: RESP 22; TEMP 97.9
--- NOTE | 2024-09-17 12:01 | Cardiology Progress Note ---
Date of Service September 17, 2024 Assessment & Plan (1) Atrial fibrillation with rapid ventricular response: (2) Non-ST elevation [place] (NSTEMI): (3) CAD (coronary artery disease), [place] coronary artery: (4) Chronic heart failure with reduced ejection fraction (HFrEF, <= 40%) and combined systolic and diastolic dysfunction: (5) End stage renal disease: Plan 74-year-old male presenting to hospital with unstable anginal symptoms in the setting of new onset rapid atrial fibrillation. Significantly elevated high- sensitivity troponin in setting of atrial fibrillation with rapid ventricular response. Chest pain resolved with spontaneous conversion to normal sinus rhythm. Echocardiogram demonstrating mild reduction of LV systolic function compared to previous. I am concerned about a new plaque rupture event given the significant elevated in troponin. Patient is currently chest pain free in sinus rhythm. Recommendations: * Amiodarone 200 mg 3 times daily to maintain sinus rhythm * Daily ECG during amiodarone loading * Monitor telemetry * IV heparin, aspirin, Brilinta, atorvastatin. * Reduce metoprolol to 25 mg twice daily. * Repeat cardiac enzymes * Discuss case further with patient's centrifugal casting machine operator at [facility] (Dr. Cruz) to consider invasive options. Awaiting call back. * Urgent cardiac catheterization with any recurrent anginal symptoms. I spent a total of 75 minutes on the date of service in preparation, delivery, and documentation of the care provided to this patient, excluding any time spent in the performance of separately billed services. Addendum: Patient developed recurrent chest discomfort at approximately 3:[address] elevation. Case discussed with interventional cardiology. Cardiac catheterization will be performed for further evaluation. Patient agreeable to procedure. Family updated regarding clinical status. Micah Beach DO, [facility] 09/14/2024: -Patient is resting comfortably in bed with no acute concerns. Spouse at bedside. -Underwent cardiac catheterization s/p PCI with ALYSSA to the proximal circumflex in-stent thrombosis with new overlapping ALYSSA (4.5 x18mm [place]; postdilated with 5.0 NC). -Patient remains chest pain free. EKG this AM with no acute changes. Troponin continues to trend down. VS Stable -Labs stable. -Eating and drinking ok. -Cath site soft/non-tender, Positive pulse, motor sensation and no discharge or drainage. -Continue DAPT with Brilinta and ASA 81mg. -Continue Atorvastatin and Zetia -Review of telemetry shows SR with no acute events overnight. Will continue Amiodarone and Lopressor. Will discuss with Dr. Beach today if the plan is to start Eliquis today. Interventional cardiology has recommended that Triple therapy would be continued for 1 month and there after ASA would be discontinued. -Continue to monitor on telemetry. 09/15/2024: -Patient is resting comfortably without any acute cardiac concerns. Family at bedside -s/p PCI with ALYSSA to the Proximal circumflex on 09/13/24. Doing well. -Remains CP free. VS stable. Labs pending -Continue with DAPT with Brilinta and ASA 81mg. Started Eliquis 5mg PO BID. Patient is to remain on Triple therapy for 30 days. After 30 days, he will then discontinue ASA 81mg and remain on both Brilinta and Eliquis. Trend CBC now and outpatient closely. -Continue ATorvastatin and Zetia as part of GDMT -Continue Amiodarone and Lopressor. No acute events overnight on telemetry. -patient would benefit from Physical therapy. will leave at discretion of primary team. -Continue to monitor on telemetry during course of hospitalization. -When appropriate for discharge, patient's next follow up is currently not until January with Cardiology. will contact office to arrange close follow up 3-4 weeks post discharge along with non-fasting labs. 09/16/2024 No further angina, no further atrial fibrillation. Still fatigued will address heart rate and blood pressure with medications plan as previously outlined for triple anticoagulant therapy x 30 days then dual therapy with Brilinta and Eliquis Will continue amiodarone 3 times daily while in hospital then discharged on 200 twice daily. EKG today assess QT interval Maintain telemetry overnight 09/17/2024 patient clinically stable issues addressed as follows 1. In-stent restenosis/thrombosis status post drug-eluting stent proximal left circumflex 2. Paroxysmal atrial fibrillation with rapid ventricular response, highly symptomatic now on amiodarone therapy. No QT prolongation on EKG Recommendations: Triple therapy with aspirin Brilinta and Eliquis x 30 days then discontinue aspirin Amiodarone 200 mg twice daily until seen by cardiology Continue current dosing of metoprolol succinate 12.5 mg twice per day Lipid-lowering therapy as ordered Follow-up cardiology 2 weeks Admission and Anticipated Discharge Date Admission Date: September 12, 2024 Subjective Patient seen and examined, chart, medications, telemetry reviewed. Patient ambulatory in room. No further atrial fibrillation or ventricular arrhythmias. Initially tolerating medications. No chest pains or discomfort. Review of Systems Review of Systems: All systems reviewed & are unremarkable except as noted in Subjective Physical Exam Constitutional: well developed and well nourished; no acute distress and not ill appearing Neck: normal visual inspection and trachea midline Respiratory: normal respiratory effort, lungs clear to auscultation normal respiratory effort; no respiratory distress Auscultation: no crackles, no rales, no rhonchi and no wheezes Cardiovascular: Rate/Rhythm: regular rate and regular rhythm Heart Sounds: normal S1 and normal S2; no murmur Vessels: dorsalis pedis pulses present; no JVD Extremities: no edema Gastrointestinal (Abdomen): Inspection/Auscultation: abdomen normal to inspection and normal bowel sounds; abdomen not distended Percussion/Palpation: abdomen soft; abdomen nontender, no guarding and abdomen not rigid Skin: no rashes, warm and dry Psychiatric: A+Ox3, euthymic affect Results & Data Vital Signs (Past 12 Hours) Vital Signs Temp Pulse Pulse Pulse Resp BP BP 09/17/24 11:37 36.6 C 94 H 22 94/61 L 09/17/24 09:25 36.5 C 75 18 09/17/24 07:45 36.5 C 78 20 100/72 09/17/24 07:39 76 09/17/24 03:43 36.5 C 72 19 92/54 L 09/17/24 01:24 94/59 L Pulse Ox O2 Del Method 09/17/24 11:37 93 Room Air 09/17/24 09:25 09/17/24 07:45 93 Room Air 09/17/24 07:39 09/17/24 03:43 93 Room Air 09/17/24 01:24 Laboratory Results Laboratory Results - last 24 hr 09/16/24 09/16/24 09/17/24 16:18 19:52 05:33 Sodium 139 Potassium 4.0 Chloride 93 L Carbon Dioxide 28 Anion Gap 18 H BUN 80 H Creatinine 15.70 H* D Est Cr Clr Drug Dosing 5.0 eGFR 2.92 BUN/Creatinine Ratio 5.1 L Glucose 157 H POC Glucose 143 H 220 H Calcium 9.0 Magnesium 3.1 H Iron 79 TIBC 199 L Transferrin 142 L Transferrin % Sat 40 09/17/24 09/17/24 07:22 11:14 Sodium Potassium Chloride Carbon Dioxide Anion Gap BUN Creatinine Est Cr Clr Drug Dosing eGFR BUN/Creatinine Ratio Glucose POC Glucose 196 H 205 H Calcium Magnesium Iron TIBC Transferrin Transferrin % Sat (3) CAD (coronary artery disease), [place] coronary artery [place] vs. transplanted heart: [place] heart Associated angina: with unstable angina Qualified Code(s): I25.110 - Atherosclerotic heart disease of [place] coronary artery with unstable angina pectoris
[2024-09-17 13:33] VITALS: BP 92/54
--- NOTE | 2024-09-17 14:29 | Discharge Summary ---
Date of Service September 17, 2024 Admission HPI Per Admitting Provider History obtained from interview with the patient and chart review; Past medical history of multivessel coronary artery disease status post stent placement in December 2023 in left anterior descending and circumflex/circumflex obtuse marginal. 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 He is on metoprolol 12.5 mg twice daily, Protonix 40 mg once a day, ferric citrate 1 g twice a day, Brilinta 90 mg twice a day, isosorbide mononitrate 60 mg once a day, Lipitor 80 mg once a day, Zetia 10 mg once a day, insulin glargine 12 units in the morning, aspirin 81 mg Patient presents to the hospital with chest pain that started around 2 PM; patient took multiple nitrates with intermittent relief but the pain did not resolve which prompted him to come to the ED. He reports that he had similar episodes of chest pain intermittently since last 1 week which had resolved spontaneously with nitrates. He was recently started on Protonix for possible GERD as well. He denies palpitations, shortness of breath, fever, chills, abdominal pain. He also reports history of intermittent hematuria recently for which he is being planned for possible cystoscopy as outpatient. On presentation to the ED; patient was found to have atrial fibrillation with RVR with ventricular rate of 159; nonspecific ST segment elevation noted in inferior lead, T wave abnormality noted in lateral lead. ED provider discussed the case with Dr. Corey from cardiology; who recommended esmolol drip for atrial fibrillation along with heparin drip. Upon evaluation, patient continued to have atrial fibrillation with RVR despite being on esmolol with ventricular rate of 130s to 140s. Discussion was done with on-call cardiology over the phone; patient was started on Cardizem drip and metoprolol as per recommendation. Admission Exam Per Admitting Provider Physical Exam: On physical examination; Constitutional: Alert oriented x 3; Respiratory: normal respiratory effort, lungs clear to auscultation, no wheeze, rales, rhonchi. Normal insp/exp effort, no accessory muscle use Cardiovascular: Irregular, no murmur, no edema Vessels: no JVD or carotid bruit Chest: normal inspection of chest Abdomen: Soft, nontender. Peritoneal dialysis catheter in place Musculoskeletal: no cyanosis or clubbing, extremities motor strength 5/5 Skin: no rashes, warm and dry normal turgor Neurologic: PERRL, EOMI, accommodation nl, no face palsy, no dysarthria CN's II- XI intact bilaterally and moves all extremities Principal Diagnosis Atrial fibrillation with RVR, NSTEMI status post cardiac cath and stent placement in proximal circumflex, and decisional disease on peritoneal dialysis Discharge Exam Lying in bed without any apparent distress Constitutional well developed, well nourished, + ill appearing and + obese Eyes PERRL, conjunctivae normal, anicteric sclerae ENMT external ear and nose normal, oropharynx normal Neck trachea midline, no thyromegaly Respiratory no respiratory distress Auscultation: + diminished lung sounds; no crackles Cardiovascular Rate/Rhythm: regular rate and regular rhythm; not tachycardic Heart Sounds: normal S1 and normal S2; no murmur Extremities: + edema ( 1+ bilaterally) Gastrointestinal (Abdomen) Inspection/Auscultation: + abdomen distended and normal bowel sounds Percussion/Palpation: abdomen soft; abdomen nontender Neurologic normal touch/pain/proprioception and moves all extremities; no focal motor deficits Psychiatric A+Ox3, euthymic affect Lymphatic no cervical or axillary lymphadenopathy Discharge Data Allergies Allergy/AdvReac Type Severity Reaction Status Date / Time Sulfa (Sulfonamide Allergy Intermediate RASH/VOMITI Verified 09/12/24 18:14 Antibiotics) NG egg yolk AdvReac Intermediate Diarrhea Verified 09/12/24 18:14 UNKNOWN PHOSPHATE BINDER AdvReac Severe SEVERE Uncoded 09/12/24 18:14 DIARRHEA Consultations 09/12/24 17:32 Consult Cardiac Catheterization Stat 09/12/24 18:04 ED Decision to Admit Stat 09/12/24 19:36 Consult Nephrology Routine 09/13/24 20:00 Consult Cardiology Routine Procedures Performed Operation Date: 09/13/24 16:00 Actual Procedures p Cineradiography w/Routine Exam - Blayne Corey MD p Cath, Left with Cors and Vent - Blayne Corey MD s Drug Eluting Stent SGl Vessel - Blayne Corey MD s IVUS Coronary Single Vessel - Blayne Corey MD Ordered Studies 09/13/24 16:13 CL Cath Imgs for PACS use only Routine 09/13/24 18:29 CL IVUS Coronary Single Vessel Routine Hospital Course (1) Atrial fibrillation with rapid ventricular response: Plan Assessment/plan Atrial fibrillation with RVR NSTEMI Patient presented to the hospital with intermittent chest pain EKG on admission consistent with atrial fibrillation with rapid ventricular rate along with ST and T wave changes ED provider will discussed with Dr. Corey from cardiology; recommended esmolol and heparin drip Echocardiogram done in March 2024 showed EF of 46%; large size apical, septal, anteroseptal and inferior wall motion abnormality with hypokinesis to decline disease of the segments. Grade 1 diastolic dysfunction. High sensitive troponin on admission was 275.9; up trended to 87,896.3. Repeat echocardiogram shows EF of 35 to 40% with large size apical, septal, anteroseptal, anterior and inferior wall motion abnormality with hypokinesis to dyskinesis of the segments. Patient was started on Cardizem drip and metoprolol; converted to normal sinus rhythm overnight on 09/12/2024. Patient is started on amiodarone for rhythm control at 3 times per day. Metoprolol decreased to 25 mg twice a day. Patient had recurrence of chest pain on 09/13; was taken to cardiac cath; circumflex was found to have 95% acute proximal in-stent thrombosis; successful PCI of proximal circumflex in-stent thrombosis with new overlapping ALYSSA. Continue on aspirin and Brilinta; possibly Eliquis to be added for new atrial fibrillation with triple therapy for 1 month and discontinue aspirin. Appreciate cardiology input and recommendation-Continue triple therapy for 30 days and after 30 days discontinue aspirin and the patient will remain on Brilinta and Eliquis Remains stable cardiac song and denies any significant symptoms Will get PT OT evaluation prior to discharge- awaiting PT and OT evaluation Denies any cardiac symptoms and no respiratory symptoms and remains hemodynamically stable Likely discharge tomorrow Denies any cardiac symptoms at rest and the rate is controlled at 75/min Will continue current medications as advised by the head of sales and marketing and the patient will be discharged this afternoon ESRD on peritoneal dialysis Hyperkalemia- resolved Nephrology consulted for continuation of dialysis Appreciate nephrology input and recommendation Will continue with renal suppressive medications Discussed with the automobile upholsterer apprentice about high phosphate Will have longer peritoneal dialysis as an outpatient Peritoneal dialysis duration will be increased and automobile upholsterer apprentice will take care of that part GERDcontinue on Protonix Hyperlipidemiacontinue on Lipitor, Zetia Type 2 diabetes mellituscontinue on insulin CADrecently stent placed in June 2024; continue on Brilinta . Imdur on hold for now Full code DVT prophylaxis Dispositionfrom home; plan to obtain PT OT evaluation. Discussed with the Daughter Discussed with the Total Time Total Time Spent Total Time Spent (In Minutes): 40 minutes Discharge Plan Discharge Items Patient Disposition: Home - Home Health Services Reason For Visit: CHEST PAIN Discharge Diagnosis: Atrial fibrillation with RVR, NSTEMI status post cardiac cath and stent placement in proximal circumflex, and decisional disease on peritoneal dialysis Condition on Discharge: Fair Activity: Resume your previous activity Non-emergency contact: Primary Care Provider Call non-emergency contact if: you have any medication questions and your symptoms worsen Follow-up/Referrals: Agatha Beach DO [Primary Care Provider] - (Date & Time 09/25/2024 10:50 AM Provider: Agatha Beach DO [facility] ) Diet: Carb Consistent or DM2 Fluids: 1800ml (7 cups) Addtl Attending Provider Instructions: Please take precautions to avoid falls Take your medications as advised- Continue Brilinta, Eliquis and aspirin for now and discontinue aspirin after about 27 days. Continue Brilinta and Eliquis thereafter Continue Auryxia as you are taking before her home Continue to do peritoneal dialysis as advised by the automobile upholsterer apprentice Please have follow-up appointments with the automobile upholsterer apprentice and PCP and also with head of sales and marketing Pending Studies at Discharge: No Stand-Alone Forms: [employer], Smoking Cessation Medications and DC Order Prescriptions: New amiodarone 200 mg Tablet 200 mg PO BID Qty: 60 0RF Eliquis 5 mg Tablet 5 mg PO BID Qty: 60 0RF Continued atorvastatin 80 mg tablet 80 mg PO DAILY ezetimibe 10 mg tablet 10 mg PO QAM Ozempic 2 mg/dose (8 mg/3 mL) Pen Injector 2 mg SUBCUT WK Rx Instructions: MONDAY cholecalciferol (vitamin D3) 25 mcg (1,000 unit) Capsule 25 mcg PO DAILY insulin glargine [Lantus Solostar U-100 Insulin] 100 unit/mL (3 mL) insulin pen 12 unit subcut QAM Qty: 15 0RF isosorbide mononitrate 120 mg tablet extended release 24 hr 60 mg PO QAM pantoprazole 40 mg tablet,delayed release (DR/EC) 40 mg PO QAM nitroglycerin 0.4 mg tablet, sublingual 0.4 mg sublingual DIRECTED PRN (Reason: Chest Pain) gentamicin 0.1 % cream 1 applic TOPICAL DIRECTED PRN (Reason: NEEDED) metoprolol succinate 25 mg tablet extended release 24 hr 12.5 mg PO BID vitamin E 268 mg (400 unit) Capsule 268 mg PO DAILY iron sucrose 200 mg iron/10 mL Solution 20 mg IV .[id number] Rx Instructions: GIVEN AT DIALYSIS administer over 30 mins Brilinta 90 mg tablet 90 mg PO BID ferric citrate [Auryxia] 210 mg iron Tablet 1,000 mg PO BID Rx Instructions: BREAKFAST & LUNCH. administer with a meal aspirin 81 mg Tablet,Delayed Release (Dr/Ec) 81 mg PO DAILY 8 Days Qty: 0 0RF Rx Instructions: Continue for 27 days and then stop taking it. Discharge Orders: Discharge Order (Routine); Ordered 09/17/24 Ordered By: Ruth Bruce Admission Data Admit Date/Time: 09/12/24 19:36 Attending Provider: Ruth Bruce Admit Provider: Stevenson Lopez Primary Care Provider: Agatha Beach Other Providers: Blayne Corey; Bernabe Bruce Jawed; Micah Beach; Stevenson Lopez; [facility] Other Interventions: Discharge Summary Assessment (RN) Last Done: 09/17/24 13:32
[2024-09-17 15:52] VITALS: PULSE 75
--- NOTE | 2024-09-19 09:22 | Electrocardiogram Report ---
Test Reason : Blood Pressure : */* mmHG Vent. Rate : 75 BPM Atrial Rate : 75 BPM P-R Int : 176 ms QRS Dur : 98 ms QT Int : 420 ms P-R-T Axes : 104 5 139 degrees QTcB Int : 469 ms Normal sinus rhythm Inferior infarct (cited on or before 15-Sep-2024) Cannot rule out Anterior infarct (cited on or before 14-Sep-2024) Abnormal ECG When compared with ECG of 15-Sep-2024 06:13, QRS axis Shifted right Questionable change in initial forces of Lateral leads Confirmed by Mario Russo ([id number]) on 09/19/2024 9:21:44 AM Referred By: REFERRED SELF Confirmed By: Mario Russo
== END 2024-09-17 15:52 | disposition home health service (06) | DRG 321 ==
LOC: ED 17:12 → 2S 19:36 → SUATTDRO 19:36 → 2S 23:07

== ENCOUNTER 2024-09-30 15:51 | Inpatient (IN) ==
--- NOTE | 2024-09-30 16:06 | Emergency Department Note ---
Impression & Plan Peritonitis, End stage renal disease ED Provider Note NAME: GREER LINTON AGE: 74 SEX: M : 1950 ARRIVES VIA: Walk-In INFORMANT: [Patient][, ] with ED PROVIDER(S): [Barron Brasher MD] CHIEF COMPLAINT: Outpatient referral, abdominal pain MEDICAL DECISION MAKING: Patient presents with the above IV was established and blood work obtained along with cultures. Patient was ordered empiric Zosyn as precaution. CT abdomen pelvis without contrast ordered. Patient's blood work showed a normal white count of 9. I was called by Dr. Pandya and he reported the patient does have peritonitis based on dialysate sample. CT abdomen pelvis was canceled at this time. Additional imaging deferred to inpatient service but given this likely peritonitis. Patient hemoglobin of 10. The patient does have chronic kidney disease. Procalcitonin 1.05. Troponin is elevated at 64 patient did have a recent stent placed but no active chest pain. EKG not indicative of acute STEMI. I did speak with the on- call hospitalist service. Dr. Pandya had placed the orders for the intraperitoneal antibiotics Discussion w/ other healthcare providers: Dr. Pandya nephrology Jodee Madrigal PA-C and Dr. Kilgore inpatient medicine service Prior /Outside records reviewed: Per review of cardiology progress note from Dr. Sheets the patient did undergo PCI with ALYSSA to proximal circumflex on September 13, 2024. Patient to remain on triple therapy aspirin Brilinta and Eliquis for 30 days and then will transition off of aspirin. Patient also with A-fib RVR. The patient to be continued on amiodarone. Review of the patient's most recent blood pressures patient has run in the low 100s over 70s in the past and does occasionally run 90s over 60s. Patient with a known prior history of multivessel coronary disease status post stent in December 2023 patient was admitted most recently for A-fib and RVR. Patient ESRD on peritoneal dialysis patient on aspirin Alimta patient discharged on amiodarone and Eliquis. Differential diagnosis: Peritonitis, appendicitis, testicular torsion, UTI, diverticulitis, obstruction, renal colic, mesenteric adenitis, enteririts, PUD, pancreatitis, biliary pathology, hernia, volvulus, constipation, as well as other pathologies were considered. Diagnostics, as interpreted by me: ECG: Normal sinus rhythm, rate of 79, normal intervals, normal axis no obvious STEMI. Cardiac monitoring: An order was placed for continuous cardiac monitoring. The monitor shows a rate of 79 with sinus rhythm. [Patient was placed on pulse oximetry] Medical decision rules: [none] Imaging studies: [I informally interpreted the patient's [] with formal report to follow.] [] HPI: Patient presents with at bedside due to concerns for low blood pressure. Low blood pressure apparently been affecting the patient for the last 2 weeks or so. Patient reportedly at dialysis today was developing some right- sided lower abdominal pain and had some cloudy dialysate. Patient does receive peritoneal dialysis still makes urine. Does follow with Dr. Pandya. Reportedly did take a sample that was to be sent off to [facility] in order to get a result potentially notify Dr. Pandya who is the patient's staffing consultant. Patient denies any chest pains but has had some shortness of breath. Patient states that this shortness of breath really occurs at nighttime. States he has no heart failure issues. Patient denies nausea or vomiting. PAST MEDICAL HISTORY: [See Below] PAST SURGICAL HISTORY: [See Below] SOCIAL HISTORY: [See Below] HOME MEDICATIONS: [See Below] ALLERGIES: [See Below] VITALS: [See Below] PHYSICAL EXAMINATION: GENERAL: NAD, non-toxic. EYE EXAM: Normal conjunctiva. PERRL, no anisocoria and EOM's grossly intact w/o pain. OROPHARYNX: Moist mucus membranes, grossly normal dentition. NECK: Trachea midline, no stridor. [Supple, no nuchal rigidity, no adenopathy, non-tender. No signs of meningismus. FROM of the neck with good chin to chest and neck extension.] LUNGS: Clear to auscultation. Normal chest wall mechanics. HEART: NSR, no MRG. ABDOMEN: Abdomen soft, right-sided and left lower quadrant pain,, no masses, no rebound or guarding. BACK: No CVA TTP. SKIN: No rashes and no bruising. UPPER EXTREMITIES: Upper extremities are grossly normal. LOWER EXTREMITIES: Grossly normal, no edema. NEURO EXAM: Awake and alert, follows commands, no obvious facial asymmetry, normal speech, moves all 4 extremities. 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 Diabetes mellitus, type II HTN (hypertension) Medical History Chronic heart failure with reduced ejection fraction (HFrEF, <= 40%) and combined systolic and diastolic dysfunction CAD (coronary artery disease), [place] coronary artery Atrial fibrillation with rapid ventricular response Non-ST elevation AR (NSTEMI) Obesity due to excess calories with serious comorbidity Acute CVA (cerebrovascular accident) COVID-19 JACBO (obstructive sleep apnea) Surgical History History of parathyroidectomy 2009 [place] [facility] [place] History Father , age 90 with prostate cancer Prostate cancer Mother , age 67 of congestive heart failure Heart disease Other Diabetes Social History Smoking Status: Never smoker Tobacco Type: Cigarettes Age Started Using Tobacco: 12; Age Quit Using Tobacco: 35; packs per day: 1; Do You Dip or Chew Tobacco: No; Hx Alcohol Use: Yes Alcohol type: hard liquor Alcohol Intake Frequency: Monthly or Less Alcohol Intake Frequency Comment: rare, special occasions Hx Substance Use: No Preferred Language: Czech Communication Ability: Effective 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[employer] Required: No Beliefs That Will Affect Care: None Current Living Situation: Spouse current occupational status: retired 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 [employer] Other Information That Helps Us Care for You: No Feels Safe at Home: Yes Safety Concerns: Feels Safe At This Time Assistive Devices: Cane and Walker Allergies Allergies Allergy/AdvReac Type Severity Reaction Status Date / Time Sulfa (Sulfonamide Allergy Intermediate RASH/VOMITI Verified 09/12/24 18:14 Antibiotics) NG egg yolk AdvReac Intermediate Diarrhea Verified 09/12/24 18:14 UNKNOWN PHOSPHATE BINDER AdvReac Severe SEVERE Uncoded 09/12/24 18:14 DIARRHEA Home Meds Home Medications Medication Instructions Recorded Confirmed atorvastatin 80 mg tablet 80 mg PO DAILY 10/03/22 09/30/24 cholecalciferol (vitamin D3) 25 25 mcg PO DAILY 10/03/22 09/30/24 mcg (1,000 unit) capsule ezetimibe 10 mg tablet 10 mg PO QAM 10/03/22 09/30/24 semaglutide 2 mg/dose (8 mg/3 mL) 2 mg subcut WK 10/03/22 09/30/24 subcutaneous pen injector (Ozempic) ferric citrate 210 mg iron tablet 1,000 mg PO BID 09/12/24 09/30/24 (Auryxia) gentamicin 0.1 % topical cream 1 applic topical DIRECTED PRN 09/12/24 09/30/24 NEEDED iron sucrose 200 mg iron/10 mL 20 mg IV .[id number] 09/12/24 09/30/24 intravenous solution isosorbide mononitrate 120 mg 60 mg PO QAM 09/12/24 09/30/24 tablet,extended release 24 hr metoprolol succinate 25 mg 12.5 mg PO BID 09/12/24 09/30/24 tablet,extended release 24 hr nitroglycerin 0.4 mg sublingual 0.4 mg sublingual DIRECTED PRN 09/12/24 09/30/24 tablet Chest Pain pantoprazole 40 mg tablet,delayed 40 mg PO QAM 09/12/24 09/30/24 release ticagrelor 90 mg tablet (Brilinta) 90 mg PO BID 09/12/24 09/30/24 vitamin E 268 mg (400 unit) capsule 268 mg PO DAILY 09/12/24 09/30/24 Previous Rx's Medication Instructions Recorded insulin glargine 100 unit/mL (3 12 unit (0.12 mL) subcut QAM #15 mL 10/14/22 mL) subcutaneous pen (Lantus Solostar U-100 Insulin) amiodarone 200 mg tablet 200 mg PO BID #60 tabs 09/17/24 apixaban 5 mg tablet (Eliquis) 5 mg PO BID #60 tabs 09/17/24 aspirin 81 mg tablet,delayed 81 mg PO DAILY 8 days #0 tabs 09/17/24 release cephalexin 250 mg capsule 250 mg PO DAILY 7 days #7 caps 09/27/24 Results & Data (ED) Vital Signs Vital Signs - 24 hr 09/30/24 15:54 09/30/24 16:18 09/30/24 16:18 Temperature 37.1 C Temperature Source Temporal Artery Scan Pulse Rate 80 Pulse Rate [Apical] 75 Respiratory Rate 16 22 Respiratory Effort / Characteristics Non-Labored Spontaneous Respiratory Depth Normal Respiratory Pattern Regular Blood Pressure 90/60 L Blood Pressure [Right Arm] 91/68 L Blood Pressure Mean 70 Blood Pressure Mean [Right Arm] 75 Pulse Oximetry 95 96 Oxygen Delivery Method Room Air Room Air Room Air Sepsis Recent Fever Within 48 Hours No Sepsis New/Unexplained Change in Mental Status No Sepsis Action Taken by Nursing No Action Required 09/30/24 16:51 09/30/24 17:48 Temperature Temperature Source Pulse Rate 75 Pulse Rate [Apical] 75 Respiratory Rate 18 Respiratory Effort / Characteristics Respiratory Depth Respiratory Pattern Blood Pressure Blood Pressure [Right Arm] 133/84 Blood Pressure Mean Blood Pressure Mean [Right Arm] 100 Pulse Oximetry 95 Oxygen Delivery Method Room Air Sepsis Recent Fever Within 48 Hours Sepsis New/Unexplained Change in Mental Status Sepsis Action Taken by [facility] Medications Current Medication List: was personally reviewed by me Laboratory Data Attestation: I reviewed the patient's lab results. 10/01/24 05:57 10/01/24 05:57 Lab Results 09/30/24 09/30/24 09/30/24 Range/Units 16:12 16:17 16:32 WBC 9.61 (4.8-10.8) K/ul RBC 3.35 L (4.70-6.10) M/uL Hgb 10.1 L (14.0-18.0) g/dl Hct 30.9 L (42.0-52.0) % MCV 92.2 (80.0-100.0) fL MCH 30.1 (25.0-34.0) pg MCHC 32.7 (32.0-36.0) g/dL RDW Std Deviation 44.3 (36.4-46.3) fL RDW Coeff of Isai 13.2 (11.5-14.5) % Plt Count 285 (130-400) K/uL MPV 10.6 (9.4-12.4) fL Immature Gran % (Auto) 0.4 % Neut % (Auto) 77.3 % Lymph % (Auto) 14.0 % [place] % (Auto) 7.0 % Eos % (Auto) 1.1 % Baso % (Auto) 0.2 % Neut # (Auto) 7.42 H (1.40-6.50) K/uL Lymph # (Auto) 1.35 (1.20-3.40) K/uL [place] # (Auto) 0.67 H (0.11-0.59) K/uL Eos # (Auto) 0.11 (0.00-0.50) K/uL Baso # (Auto) 0.02 (0.00-0.20) K/uL Immature Gran # (Auto) 0.04 (0.01-0.20) K/uL Sodium 132 L (136-145) mmol/L Potassium 4.6 (3.5-5.1) mmol/L Chloride 90 L (98-107) mmol/L Carbon Dioxide 27 (21-32) mmol/L Anion Gap 15 H (3-11) BUN 78 H (6-23) mg/dl Creatinine 11.91 H* (0.6-1.4) mg/dl Est Cr Clr Drug Dosing Not Reportable eGFR 4.07 BUN/Creatinine Ratio 6.5 L (10-20) Glucose 158 H (70-99(Fasting)) mg/dl POC Glucose 172 H (70-99) mg/dl Lactate 2.4 H* (0.4-2.0) mmol/L Calcium 9.7 (8.6-10.3) mg/dl Magnesium 2.3 (1.7-2.4) mg/dl Total Bilirubin 0.6 (0.2-1.0) mg/dl Direct Bilirubin 0.2 (0-0.2) mg/dl AST 10 L (13-39) U/L ALT 15 (7-52) U/L Alkaline Phosphatase 77 (34-104) U/L Troponin I High Sens 64.6 H* (0-20) pg/ml Total Protein 7.1 (6.0-8.3) gm/dl Albumin 3.4 (3.4-5.0) gm/dl Procalcitonin 1.05 H (0-0.5) ng/ml Administered Medications Amiodarone HCl (Amiodarone 200 Mg Tab) 200 mg PO BID BRITTANIE Stop: 10/30/24 20:59 Last Admin: 10/01/24 08:14 Dose: 200 mg Documented By: Admin: 09/30/24 21:06 Dose: 200 mg Documented By: ZAYRA Apixaban (Apixaban 5 Mg Tablet) 5 mg PO BID [facility] Stop: 10/30/24 20:59 Last Admin: 10/01/24 08:14 Dose: 5 mg Documented By: Admin: 09/30/24 21:06 Dose: 5 mg Documented By: ZAYRA Aspirin (Aspirin 81 Mg Ectab) 81 mg PO DAILY [facility] Stop: 10/31/24 08:59 Last Admin: 10/01/24 08:14 Dose: 81 mg Documented By: SHARLENE Atorvastatin Calcium (Atorvastatin 40 Mg Tab) 80 mg PO DAILY [facility] Stop: 10/31/24 08:59 Last Admin: 10/01/24 08:13 Dose: 80 mg Documented By: SHARLENE Ezetimibe (Ezetimibe 10 Mg Tab) 10 mg PO QAM [facility] Stop: 10/31/24 08:59 Last Admin: 10/01/24 08:14 Dose: 10 mg Documented By: SHARLENE Piperacillin Sod/Tazobactam Sod (Zosyn) 4.5 gm in 100 mls @ 25 mls/hr IV Q12H [facility]; Protocol Stop: 10/11/24 01:59 Last Admin: 10/01/24 13:57 Dose: 25 mls/hr Documented By: Infusion: 10/01/24 06:42 Dose: Infused Documented By: Admin: 10/01/24 02:40 Dose: 25 mls/hr Documented By: VALE Insulin Aspart (Insulin Aspart Per Unit Charge) 0 units SC ACHS [facility] Stop: 10/30/24 20:59 Last Admin: 10/01/24 12:19 Dose: Not Given Documented By: Admin: 10/01/24 08:17 Dose: 11 units Documented By: SHARLENE Co-signed By: EL Admin: 09/30/24 21:06 Dose: 4 units Documented By: ZAYRA Co-signed By: VALE Insulin Glargine (Lantus Per Unit Charge) 4 units SQ BID [facility] Stop: 10/30/24 20:59 Last Admin: 10/01/24 08:17 Dose: 4 units Documented By: SHARLENE Co-signed By: EL Admin: 09/30/24 21:07 Dose: 4 units Documented By: ZAYRA Co-signed By: VALE Isosorbide Mononitrate (Isosorbide [place] Extended Rel 60 Mg Tabcr) 60 mg PO QAM [facility] Stop: 10/31/24 08:59 Last Admin: 10/01/24 08:14 Dose: 60 mg Documented By: SHARLENE Metoprolol Succinate (Metoprolol Succ 25mg Ext Rel Tab) 12.5 mg PO BID BRITTANIE Stop: 10/30/24 20:59 Last Admin: 10/01/24 08:13 Dose: 12.5 mg Documented By: Admin: 09/30/24 21:07 Dose: 12.5 mg Documented By: DOMINICK Miscellaneous (Ferric Citrate [Auryxia] 210 Mg Iron Tablet--Order Awaiting Action) 1 each N/A QS BRITTANIE Stop: 10/31/24 00:00 Last Admin: 10/01/24 08:14 Dose: Not Given Documented By: Admin: 10/01/24 00:37 Dose: Not Given Documented By: VALE Nystatin (Nystatin 500,000 Unit Tab) 500,000 units PO QID BRITTANIE Stop: 10/30/24 20:59 Last Admin: 10/01/24 13:57 Dose: 500,000 units Documented By: Admin: 10/01/24 08:13 Dose: 500,000 units Documented By: Admin: 09/30/24 21:08 Dose: 500,000 units Documented By: DOMINICK Pantoprazole Sodium (Pantoprazole 40 Mg Tab) 40 mg PO QAM BRITTANIE Stop: 10/31/24 08:59 Last Admin: 10/01/24 08:13 Dose: 40 mg Documented By: SHARLENE Ticagrelor (Ticagrelor 90 Mg Tab) 90 mg PO BID BRITTANIE Stop: 10/30/24 20:59 Last Admin: 10/01/24 08:13 Dose: 90 mg Documented By: Admin: 09/30/24 22:08 Dose: 90 mg Documented By: [facility] Vitamin D (Cholecalciferol 25 Mcg (1000 Units) Tab) 25 mcg PO DAILY BRITTANIE Stop: 10/31/24 08:59 Last Admin: 10/01/24 08:14 Dose: 25 mcg Documented By: SHARLENE Discontinued Medications Sodium Chloride (Nss) 500 mls @ 999 mls/hr IV .Q31M ONE Stop: 09/30/24 16:48 Last Infusion: 09/30/24 17:52 Dose: Infused Documented By: Admin: 09/30/24 17:14 Dose: 999 mls/hr Documented By: MANINDER Piperacillin Sod/Tazobactam Sod (Zosyn) 4.5 gm in 100 mls @ 200 mls/hr IV NOW ONE; Protocol Stop: 09/30/24 16:48 Last Infusion: 09/30/24 18:25 Dose: Infused Documented By: Admin: 09/30/24 17:49 Dose: 200 mls/hr Documented By: MANINDER Vancomycin HCl 2,250 mg/Ceftazidime 1,500 mg/Peritoneal Dialysis Solution 2,052.5 mls @ 0 mls/hr IP Q24H BRITTANIE Stop: 10/10/24 17:59 Last Infusion: 09/30/24 20:32 Dose: Infused Documented By: Admin: 09/30/24 19:30 Dose: 2,000 mls/hr Documented By: ZAYRA(2) Sodium Chloride (Nss) 250 mls @ 999 mls/hr IV .Q16M ONE Stop: 10/01/24 03:59 Last Infusion: 10/01/24 04:19 Dose: Infused Documented By: Admin: 10/01/24 03:55 Dose: 999 mls/hr Documented By: VALE Vancomycin HCl 1,500 mg/Ceftazidime 1,500 mg/Peritoneal Dialysis Solution 2,037.5 mls @ 0 mls/hr IP NOW STA Stop: 10/01/24 08:20 Last Infusion: 10/01/24 11:32 Dose: Infused Documented By: Admin: 10/01/24 10:21 Dose: 2,000 mls/hr Documented By: ZAYRA(2) Ondansetron HCl (Ondansetron Inj 2 Mg/Ml 2 Ml Vial) 4 mg IV NOW STA Stop: 10/01/24 08:29 Last Admin: 10/01/24 09:45 Dose: 4 mg Documented By: SHARLENE Imaging Data Radiologist's Impression: Chest X-Ray 09/30/24 16:18 Chest radiograph, one view History: Chest pain Comparison: 09/12/2024 Findings: Single AP view of the chest performed. No focal consolidation or pleural effusion. No pneumothorax. The cardiomediastinal silhouette is within normal limits. Normal pulmonary vascularity. No evidence for lymphadenopathy. No visualized bony or soft tissue abnormality. Impression: Normal chest radiograph Electronically signed by Blayne Ray 09-30-2024 4:56 PM Abdomen/Pelvis CT 09/30/24 17:45 Clinical History: Abdominal pain Technique: Axial computed tomography images were obtained of the abdomen and pelvis without intravenous contrast. Findings: The liver is overall of normal size, attenuation, and contour with no sign of cirrhosis or significant fatty infiltration. No definite liver mass lesion is seen on this noncontrast study. The gallbladder appears unremarkable. No bile duct dilatation is noted. The spleen is of normal size. No focal splenic lesion is evident. The pancreas appears normal with no sign of acute or chronic pancreatitis and no mass lesion noted. The pancreatic duct is of normal caliber There is a 1.4 cm right adrenal nodule. This may represent a benign adenoma but is indeterminate in nature There are multifocal renal vascular calcifications. No definite renal or proximal ureteral calculi are seen. There is no hydronephrosis or perinephric stranding. No definite renal mass lesion is identified. There is a 4.2 cm exophytic cyst of the inferior right kidney. There is an 8 mm left renal cyst The aorta is of normal caliber. There is extensive multifocal atherosclerotic plaque. No abdominal adenopathy is seen. The stomach appears normal. There is no sign of small bowel obstruction. There is diverticulosis with suspected mild acute diverticulitis at the junction of the descending and sigmoid colon. No free intraperitoneal air is identified. There is a small to moderate amount of ascites No distal ureteral or bladder calculi are seen. The bladder is decompressed. The iliac arteries are of normal caliber. No pelvic adenopathy is noted. There is a peritoneal dialysis catheter with its tip in the lower central pelvis. The prostate is enlarged measuring 5.2 cm The lungs bases appear clear. There is extensive coronary atherosclerosis Lumbar scoliosis and degenerative disc disease is seen. No fracture is identified. No focal osseous lesion is seen Impression: 1. Suspected mild acute diverticulitis. There is no sign of perforation or abscess formation 1. Small to moderate amount of ascites, with a peritoneal dialysis catheter in place 2. Extensive atherosclerosis 3. Small adrenal nodule that may represent a benign adenoma but is indeterminate in nature. A follow-up adrenal protocol abdominal CT or MRI could be obtained 4. Bilateral renal cysts 5. Enlarged prostate. Correlation with PSA levels may be useful ACT 112: Positive. There are findings on this exam that require communication between the performing entity and the patient following Patient Test Result Information Act ([place] ACT 112) guidelines. Electronically signed by Armando Shaw 09-30-2024 7:13 PM Discharge Plan Visit Data Chief Complaint: Hypotension Stated Complaint: PAIN, INFECTION IN DD AREA LOW BP ED Provider: Barron Brasher Discharge Problem: Peritonitis, End stage renal disease Patient Disposition: Admitted As Inpatient Condition: Fair Discharge Instructions Interventions: ED Discharge Assessment Last Done: 09/30/24 18:49
[2024-09-30 16:33] LABS: Basophils # (auto) 0.02 K/uL (0.00-0.20); Basophils % (auto) 0.2 %; Eosinophils # (auto) 0.11 K/uL (0.00-0.50); Eosinophils % (auto) 1.1 %; Hematocrit (blood only) 30.9 % (42.0-52.0); Hemoglobin 10.1 g/dl (14.0-18.0); Immature Granulocytes # (auto) 0.04 K/uL (0.01-0.20); Immature Granulocytes % (auto) 0.4 %; Lymphocytes # (auto) 1.35 K/uL (1.20-3.40); Mean Corpuscular Hemoglobin 30.1 pg (25.0-34.0); Mean Corpuscular Hgb Conc 32.7 g/dL (32.0-36.0); Mean Corpuscular Volume 92.2 fL (80.0-100.0); Mean Platelet Volume 10.6 fL (9.4-12.4); Monocytes # (auto) 0.67 K/uL (0.11-0.59); Neutrophils # (auto) 7.42 K/uL (1.40-6.50); Neutrophils % (auto) 77.3 %; Platelet Count 285 K/uL (130-400); RDW Coefficient of Variation 13.2 % (11.5-14.5); RDW Standard Deviation 44.3 fL (36.4-46.3); Red Blood Count 3.35 M/uL (4.70-6.10); White Blood Count 9.61 K/ul (4.8-10.8)
--- NOTE | 2024-09-30 16:49 | Communication Note ---
Date of Service: September 30, 2024 Contacted this AM that this PD pt had cloudy urine and temp 100; no issues w/ PD though a few lower BP recently. Pt on empiric abtx for voiding sx /hematuria (see note in EPIC from today) Advised PD fluid specimens given abtx and above sx. he came to PD clinic where PD fluid [facility] ([place] [facility] [place] [facility] his PD fluid after this 2 hr dwell was cloudy; pt looked per RN "awful" but no abdominal pain, no n/v/d/c; no issues w/ exchanges or exit site. Sent to ED for evaluation b/c of above hx and looking worse through the day. En route to [facility] reportedly developed abdominal pain. will treat empirically for PD peritonitis w/ fungal coverage pending study resul ts. wt 108 kg 09[place]25/24 [place] [facility] nurse coming to instill empiric IP abtx 1.5% dextrose in 2L bag to dwell 6 hrs> -1.5 gm ceftazidime -2.25 gm vancomycin After that he will do a 6hr dwell of 2.5L @1.5% dextrose >started nystatin qid po for fungal prophylaxis Will also give nystatin and ensure gram stain done on [facility] specimen to eval for fungus; Full consult to follow in AM; pls contact me if concerns before then
[2024-09-30 17:07] LABS: Alanine Aminotransferase 15 U/L (7-52); Albumin Level 3.4 gm/dl (3.4-5.0); Alkaline Phosphatase 77 U/L (34-104); Anion Gap 15 (3-11); Aspartate Aminotransferase 10 U/L (13-39); BUN Creatinine Ratio 6.5 (10-20); Bilirubin Direct 0.2 mg/dl (0-0.2); Bilirubin,Total 0.6 mg/dl (0.2-1.0); Blood Urea Nitrogen 78 mg/dl (6-23); Calcium 9.7 mg/dl (8.6-10.3); Carbon Dioxide 27 mmol/L (21-32); Chloride 90 mmol/L (98-107); Glucose 158 mg/dl (70-99(Fasting)); Magnesium 2.3 mg/dl (1.7-2.4); Potassium 4.6 mmol/L (3.5-5.1); Sodium 132 mmol/L (136-145); Total Protein 7.1 gm/dl (6.0-8.3); Troponin I High Sensitivity 64.6 pg/ml (0-20)
[2024-09-30] MEDS: SODIUM CHLORIDE 0.9% 500 ML IV ONE (17:14)
--- NOTE | 2024-09-30 17:19 | History & Physical Report ---
Date of Service September 30, 2024 Assessment & Plan (1) Peritonitis: (2) Peritoneal dialysis status: (3) End stage renal disease: (4) Diabetes mellitus, type II: (5) HTN (hypertension): (6) CAD (coronary artery disease), [place] coronary artery: (7) History of atrial fibrillation: (8) Hematuria: Plan This is a 74 y/o male with ESRD on PD, recent admission for afib with RVR, recent NSTEMI due to in-stent thrombosis, CAD, chronic HFrEF with combined systolic and diastolic dysfunction, insulin-requiring DM2, hyperaldosteronism, adrenal adenoma s/p resection, JACOB not on CPAP, prior right lacunar infarct 2022, 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 Work-up thus far seems most consistent with PD peritonitis so pt referred for admission for further management. Outpatient records from cardiology, PCP, and nephrology were reviewed. Records from admission in August also extensively reviewed. #Peritonitis - studies pending in [facility] system #Hypotension - Admit to PCU - BP improved after 500 cc IVF in the ED - will continue to monitor closely - Spoke with Dr. Martinez from nephrology - appreciate assistance with management, pt being treated empirically with intraperitoneal antibiotics and nystatin for possible fungal component - Nephrology managing dialysis - Labs in the AM - CBC, BMP, Mg, Phos #Hematuria - intermittent, no significant drop in H&H from ED visit last week - Continue to monitor since pt on aspirin/Brilinta/Eliquis for recent in-stent thrombosis and afib with RVR - Follow H&H #CAD s/p recent NSTEMI, underwent cath with PCI and new overlapping ALYSSA in the proximal circumflex - Denies anginal symptoms at present - Continue aspirin, Brilinta, Eliquis as recommended - Monitor in PCU #History of atrial fibrillation - Started on amiodarone during last admission - will continue - EKG personally reviewed - pt currently in sinus rhythm - Continue chronic anticoagulation #Insulin-requiring DM2 - Continue basal insulin with sliding scale coverage - Diabetic renal heart-healthy diet - BSG ACHS Pt seen and reviewed with collaborating physician, Dr. Kilgore. Plan of care discussed and as outlined above. 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 Of note, pt was most recently admitted 09/12-09/17/24 after he presented to the ED with chest pain and found to be in atrial fibrillation with RVR (159 bpm), had nonspecific ST segment elevation in inferior lead, T wave abnormality in lateral lead. Started on esmolol drip then changed to cardizem drip and metoprolol. Troponin trended up from 275.9 to >90773 and pt developed recurrent chest pain on 09/13 so taken for cardiac cath. Circumflex found to have 95% acute proximal in-stent thrombosis, underwent successful PCI of proximal circumflex with new overlapping ALYSSA placement. Was recommended to be on aspirin, Brilinta and Eliquis x 30 days then can d/c aspirin but remain on the Brilinta and Eliquis. Started on amiodarone 200 mg TID after pt spontaneous converted to sinus rhythm during admission. Since discharge, pt noted ongoing issues with low BPs. On 09/27, pt returned to the ED due to hyperkalemia on outpatient labs and some mild hematuria. Started on cephalexin for possible UTI and discharged to home. Has continued to feel poorly at home since this ED visit - no significant improvement on the cephalexin. Yesterday, he was very fatigued and weak, continued to have low BPs as low as 65/40 mm Hg but varied throughout the day. He tried increasing fluid intake, caffeine and salt to help with BP but still felt poorly. He also noted hematuria with clots yesterday but reports this is a bit better today. This morning, his noted that his PD fluid was cloudy, which is new for him. He went to [facility] for further evaluation and had fluid drawn off for additional testing for possible peritonitis. He was noted to have a temp of 100F earlier today. Sent to the ED due to concern for infection - prelim report concerning for peritonitis but results still pending. Pt notes that he started having abdominal pain on the way to the ED today, had some mild discomfort yesterday but currently pain is worse than prior. Small amount of loose stool but no bloody BM. Denies chest pain since discharge. No cough, dyspnea. Allergies Allergy/AdvReac Type Severity Reaction Status Date / Time Sulfa (Sulfonamide Allergy Intermediate RASH/VOMITI Verified 09/12/24 18:14 Antibiotics) NG egg yolk AdvReac Intermediate Diarrhea Verified 09/12/24 18:14 UNKNOWN PHOSPHATE BINDER AdvReac Severe SEVERE Uncoded 09/12/24 18:14 DIARRHEA Home Medications Medication Instructions Recorded Confirmed Type atorvastatin 80 mg tablet 80 mg PO DAILY 10/03/22 09/30/24 History cholecalciferol (vitamin D3) 25 25 mcg PO DAILY 10/03/22 09/30/24 History mcg (1,000 unit) capsule ezetimibe 10 mg tablet 10 mg PO QAM 10/03/22 09/30/24 History semaglutide 2 mg/dose (8 mg/3 mL) 2 mg subcut WK 10/03/22 09/30/24 History subcutaneous pen injector (Ozempic) insulin glargine 100 unit/mL (3 12 unit (0.12 mL) subcut QAM #15 mL 10/14/22 09/30/24 Rx mL) subcutaneous pen (Lantus Solostar U-100 Insulin) ferric citrate 210 mg iron tablet 1,000 mg PO BID 09/12/24 09/30/24 History (Auryxia) gentamicin 0.1 % topical cream 1 applic topical DIRECTED PRN 09/12/24 09/30/24 History NEEDED iron sucrose 200 mg iron/10 mL 20 mg IV .[id number] 09/12/24 09/30/24 History intravenous solution isosorbide mononitrate 120 mg 60 mg PO QAM 09/12/24 09/30/24 History tablet,extended release 24 hr metoprolol succinate 25 mg 12.5 mg PO BID 09/12/24 09/30/24 History tablet,extended release 24 hr nitroglycerin 0.4 mg sublingual 0.4 mg sublingual DIRECTED PRN 09/12/24 09/30/24 History tablet Chest Pain pantoprazole 40 mg tablet,delayed 40 mg PO QAM 09/12/24 09/30/24 History release ticagrelor 90 mg tablet (Brilinta) 90 mg PO BID 09/12/24 09/30/24 History vitamin E 268 mg (400 unit) capsule 268 mg PO DAILY 09/12/24 09/30/24 History amiodarone 200 mg tablet 200 mg PO BID #60 tabs 09/17/24 09/30/24 Rx apixaban 5 mg tablet (Eliquis) 5 mg PO BID #60 tabs 09/17/24 09/30/24 Rx aspirin 81 mg tablet,delayed 81 mg PO DAILY 8 days #0 tabs 09/17/24 09/30/24 Rx release cephalexin 250 mg capsule 250 mg PO DAILY 7 days #7 caps 09/27/24 09/30/24 Rx Past Med/Surg History Problem List (Updated 09/30/24 @ 18:30 by Janie Madrigal PA-C) History of atrial fibrillation Peritonitis Peritoneal dialysis status (Acute) Acute UTI (Acute) Hematuria (Acute) Hyperphosphatemia End stage renal disease 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 Diabetes mellitus, type II HTN (hypertension) Medical History Chronic heart failure with reduced ejection fraction (HFrEF, <= 40%) and combined systolic and diastolic dysfunction CAD (coronary artery disease), [place] coronary artery Atrial fibrillation with rapid ventricular response Non-ST elevation [place] (NSTEMI) Obesity due to excess calories with serious comorbidity Acute CVA (cerebrovascular accident) COVID-19 JACOB (obstructive sleep apnea) Surgical History History of parathyroidectomy 2009 [place] [facility] [place] History Father , age 90 with prostate cancer Prostate cancer Mother , age 67 of congestive heart failure Heart disease Other Diabetes Social History (Updated 09/30/24 @ 18:20 by Janie Madrigal PA-C) Smoking Status: Never smoker Tobacco Type: Cigarettes Age Started Using Tobacco: 12; Age Quit Using Tobacco: 35; packs per day: 1; Hx Alcohol Use: Yes Alcohol type: hard liquor Alcohol Intake Frequency: Monthly or Less Alcohol Intake Frequency Comment: rare, special occasions Hx Substance Use: No Preferred Language: [place] Communication Ability: Effective Furnace Tapper Required: No Beliefs That Will Affect Care: None Current Living Situation: Spouse current occupational status: retired 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 [employer] Feels Safe at Home: Yes Assistive Devices: Cane and Walker Review of Systems Review of Systems: All systems reviewed & are unremarkable except as noted in Subjective Physical Exam 2 Physical Exam: Please see physician note for details of the physical exam Results & Data Results & Data Vital Signs (Past 12 Hours) Vital Signs Temp Pulse Resp BP Pulse Ox O2 Del Method 09/30/24 16:51 75 09/30/24 16:18 Room Air 09/30/24 15:54 37.1 C 80 16 90/60 L 95 Room Air Laboratory Results Lab Results 09/30/24 09/30/24 09/30/24 Range/Units 16:12 16:17 16:32 WBC 9.61 (4.8-10.8) K/ul RBC 3.35 L (4.70-6.10) M/uL Hgb 10.1 L (14.0-18.0) g/dl Hct 30.9 L (42.0-52.0) % MCV 92.2 (80.0-100.0) fL MCH 30.1 (25.0-34.0) pg MCHC 32.7 (32.0-36.0) g/dL RDW Std Deviation 44.3 (36.4-46.3) fL RDW Coeff of Isai 13.2 (11.5-14.5) % Plt Count 285 (130-400) K/uL MPV 10.6 (9.4-12.4) fL Immature Gran % (Auto) 0.4 % Neut % (Auto) 77.3 % Lymph % (Auto) 14.0 % Iron % (Auto) 7.0 % Eos % (Auto) 1.1 % Baso % (Auto) 0.2 % Neut # (Auto) 7.42 H (1.40-6.50) K/uL Lymph # (Auto) 1.35 (1.20-3.40) K/uL Iron # (Auto) 0.67 H (0.11-0.59) K/uL Eos # (Auto) 0.11 (0.00-0.50) K/uL Baso # (Auto) 0.02 (0.00-0.20) K/uL Immature Gran # (Auto) 0.04 (0.01-0.20) K/uL Sodium 132 L (136-145) mmol/L Potassium 4.6 (3.5-5.1) mmol/L Chloride 90 L (98-107) mmol/L Carbon Dioxide 27 (21-32) mmol/L Anion Gap 15 H (3-11) BUN 78 H (6-23) mg/dl Creatinine 11.91 H* (0.6-1.4) mg/dl Est Cr Clr Drug Dosing Not Reportable eGFR 4.07 BUN/Creatinine Ratio 6.5 L (10-20) Glucose 158 H (70-99(Fasting)) mg/dl POC Glucose 172 H (70-99) mg/dl Lactate 2.4 H* (0.4-2.0) mmol/L Calcium 9.7 (8.6-10.3) mg/dl Magnesium 2.3 (1.7-2.4) mg/dl Total Bilirubin 0.6 (0.2-1.0) mg/dl Direct Bilirubin 0.2 (0-0.2) mg/dl AST 10 L (13-39) U/L ALT 15 (7-52) U/L Alkaline Phosphatase 77 (34-104) U/L Troponin I High Sens 64.6 H* (0-20) pg/ml Total Protein 7.1 (6.0-8.3) gm/dl Albumin 3.4 (3.4-5.0) gm/dl Procalcitonin 1.05 H (0-0.5) ng/ml Medications Administered Discontinued Medications Sodium Chloride (Nss) 500 mls @ 999 mls/hr IV .Q31M ONE Stop: 09/30/24 16:48 Last Admin: 09/30/24 17:14 Dose: 999 mls/hr Documented By: LCD Supervising Physician Co-Signing Physician Notes Presents with low blood pressure at home, fatigue abdominal discomfort and cloudy peritoneal dialysate fluid. Reports BP yesterday dropped to 60s/40s per Was seen at dialysis center and PD fluid collected. Directed to the ER by nephrology who recommends starting peritoneal antibiotics for PD peritonitis. ROS notable for painless hematuria On exam, General: Not in distress Eyes: PERRL, conjunctivae normal, not pale, anicteric sclerae, EOM intact bilaterally ENMT: External ear and nose normal, oropharynx normal Respiratory: Normal respiratory effort, no respiratory distress, lungs clear to auscultation, no crackles and no wheezes Cardiovascular: RRR S1 S2 Gastrointestinal (Abdomen): Soft, +tenderness especially on right abdomen, no guarding, PD catheter in situ Musculoskeletal: No pedal edema Neurologic: Alert and oriented x 3, No focal weakness, sensation grossly intact Psychiatric: Euthymic affect Labs notable for hemoglobin of 10.1, sodium of 132, creatinine of 11.9, lactate of 2.4, troponin of 64, procalcitonin of 1.05 Checks x-ray did not show any acute abnormality. PD peritonitis. Discussed with outboard system operator who ordered intraperitoneal antibiotics. Follow-up peritoneal fluid analysis and outpatient Follow-up with infectious workup including blood cultures. Get CT abdomen and pelvis without contrast. Continue aspirin, Brilinta and Eliquis considering recent stent. Monitor hemoglobin. Other plans as stated by Flakita Madrigal PA-C I spent a total of 50 minutes coordinating, documenting and providing care for this patient excluding time spent in performance of separately billed services (4) Diabetes mellitus, type II Chronic kidney disease stage: on chronic dialysis Diabetes mellitus complication detail: with chronic kidney disease Diabetes mellitus complication status: with kidney complications Diabetes mellitus [facility] insulin use: with [facility] use Qualified Code(s): E11.22 - Type 2 diabetes mellitus with diabetic chronic kidney disease; N18.6 - End stage renal disease; Z79.4 - shelter (current) use of insulin; Z99.2 - Dependence on renal dialysis (5) HTN (hypertension) Hypertension type: unspecified Qualified Code(s): I10 - Essential (primary) hypertension (6) CAD (coronary artery disease), [place] coronary artery Associated angina: with unstable angina [place] vs. transplanted heart: [place] heart Qualified Code(s): I25.110 - Atherosclerotic heart disease of [place] coronary artery with unstable angina pectoris (8) Hematuria Hematuria type: gross Qualified Code(s): R31.0 - Gross hematuria
--- NOTE | 2024-09-30 17:41 | XRay Report ---
Chest radiograph, one view History: Chest pain Comparison: 09/12/2024 Findings: Single AP view of the chest performed. No focal consolidation or pleural effusion. No pneumothorax. The cardiomediastinal silhouette is within normal limits. Normal pulmonary vascularity. No evidence for lymphadenopathy. No visualized bony or soft tissue abnormality. Impression: Normal chest radiograph Electronically signed by Blayne Ray 09-30-2024 4:56 PM
[2024-09-30] MEDS: PIPERACILLIN/TAZOBACTAM 4.5 GM/100 ML BAG IV ONE (17:49)
[2024-09-30] MEDS ORDERED: GLUCOSE 40% GEL 15 GM TUBE PO PRN (19:12)
[2024-09-30] MEDS ORDERED: GLUCAGON FOR INJ 1 MG VIAL SQ PRN (19:12)
[2024-09-30] MEDS ORDERED: ACETAMINOPHEN 325 MG TAB PO PRN (19:12)
[2024-09-30] MEDS ORDERED: DEXTROSE 50% 50 ML SYRINGE IV PRN (19:12)
[2024-09-30] MEDS ORDERED: GLUCOSE 10 TAB/TUBE PO PRN (19:12)
[2024-09-30] MEDS ORDERED: CARBOHYDRATES FOR HYPOGLYCEMIA PO PRN (19:12)
--- NOTE | 2024-09-30 19:13 | CT Scan Report ---
Clinical History: Abdominal pain Technique: Axial computed tomography images were obtained of the abdomen and pelvis without intravenous contrast. Findings: The liver is overall of normal size, attenuation, and contour with no sign of cirrhosis or significant fatty infiltration. No definite liver mass lesion is seen on this noncontrast study. The gallbladder appears unremarkable. No bile duct dilatation is noted. The spleen is of normal size. No focal splenic lesion is evident. The pancreas appears normal with no sign of acute or chronic pancreatitis and no mass lesion noted. The pancreatic duct is of normal caliber There is a 1.4 cm right adrenal nodule. This may represent a benign adenoma but is indeterminate in nature There are multifocal renal vascular calcifications. No definite renal or proximal ureteral calculi are seen. There is no hydronephrosis or perinephric stranding. No definite renal mass lesion is identified. There is a 4.2 cm exophytic cyst of the inferior right kidney. There is an 8 mm left renal cyst The aorta is of normal caliber. There is extensive multifocal atherosclerotic plaque. No abdominal adenopathy is seen. The stomach appears normal. There is no sign of small bowel obstruction. There is diverticulosis with suspected mild acute diverticulitis at the junction of the descending and sigmoid colon. No free intraperitoneal air is identified. There is a small to moderate amount of ascites No distal ureteral or bladder calculi are seen. The bladder is decompressed. The iliac arteries are of normal caliber. No pelvic adenopathy is noted. There is a peritoneal dialysis catheter with its tip in the lower central pelvis. The prostate is enlarged measuring 5.2 cm The lungs bases appear clear. There is extensive coronary atherosclerosis Lumbar scoliosis and degenerative disc disease is seen. No fracture is identified. No focal osseous lesion is seen Impression: 1. Suspected mild acute diverticulitis. There is no sign of perforation or abscess formation 1. Small to moderate amount of ascites, with a peritoneal dialysis catheter in place 2. Extensive atherosclerosis 3. Small adrenal nodule that may represent a benign adenoma but is indeterminate in nature. A follow-up adrenal protocol abdominal CT or MRI could be obtained 4. Bilateral renal cysts 5. Enlarged prostate. Correlation with PSA levels may be useful ACT 112: Positive. There are findings on this exam that require communication between the performing entity and the patient following Patient Test Result Information Act ([place] ACT 112) guidelines. Electronically signed by Armando Shaw 09-30-2024 7:13 PM
[2024-09-30] MEDS: DIALYSIS IP SCH (19:30)
[2024-09-30] MEDS: CEFTAZIDIME IP SCH (19:30)
[2024-09-30] MEDS: PERITONEAL 1.5% IP SCH (19:30)
[2024-09-30] MEDS: VANCOMYCIN HCL IP SCH (19:30)
[2024-09-30] MEDS: APIXABAN 5 MG TABLET PO SCH (21:06)
[2024-09-30] MEDS: INSULIN ASPART PER UNIT CHARGE SC SCH (21:06)
[2024-09-30] MEDS: AMIODARONE 200 MG TAB PO SCH (21:06)
[2024-09-30] MEDS: METOPROLOL SUCC 25MG EXT REL TAB PO SCH (21:07)
[2024-09-30] MEDS: LANTUS PER UNIT CHARGE SQ SCH (21:07)
[2024-09-30] MEDS: NYSTATIN 500,000 UNIT TAB PO SCH (21:08)
[2024-09-30] MEDS: TICAGRELOR 90 MG TAB PO SCH (22:08)
[2024-10-01 01:03] LABS: Appearance Urine Cloudy (Clear); Bacteria Urine Automated None Seen (None Seen); Bilirubin Urine Negative (Negative); Blood Urine 3+ (Negative); Cast Urine Automated 0-2 /lpf (0-2); Color Urine Yellow; Epithelial Cell Urine Auto 0-2 /hpf (0-2); Glucose Urine UA 1+ (Negative); Ketones Urine Trace (Negative); Leukocyte Esterase Urine 1+ (Negative); Nitrite Urine Negative (Negative); Protein Urine 3+ (Negative); RBC Urine Automated >20 /hpf (0-2); Specific Gravity Urine 1.028 (1.000-1.030); Urobilinogen Urine Negative (Negative); WBC Urine Automated 21-50 /hpf (0-5); pH Urine 5.5 (4.5-7.5)
[2024-10-01] MEDS: PIPERACILLIN/TAZOBACTAM 4.5 GM/100 ML BAG IV SCH (02:40)
[2024-10-01] MEDS: SODIUM CHLORIDE 0.9% 250 ML IV ONE (03:55)
[2024-10-01 06:54] LABS: Basophils # (auto) 0.03 K/uL (0.00-0.20); Basophils % (auto) 0.5 %; Eosinophils # (auto) 0.13 K/uL (0.00-0.50); Eosinophils % (auto) 2.1 %; Hematocrit (blood only) 24.3 % (42.0-52.0); Hemoglobin 7.9 g/dl (14.0-18.0); Immature Granulocytes # (auto) 0.04 K/uL (0.01-0.20); Immature Granulocytes % (auto) 0.6 %; Lymphocytes # (auto) 1.13 K/uL (1.20-3.40); Lymphocytes % (auto) 17.9 %; Mean Corpuscular Hemoglobin 30.4 pg (25.0-34.0); Mean Corpuscular Hgb Conc 32.5 g/dL (32.0-36.0); Mean Corpuscular Volume 93.5 fL (80.0-100.0); Mean Platelet Volume 10.6 fL (9.4-12.4); Monocytes # (auto) 0.53 K/uL (0.11-0.59); Monocytes % (auto) 8.4 %; Neutrophils # (auto) 4.47 K/uL (1.40-6.50); Neutrophils % (auto) 70.5 %; Platelet Count 227 K/uL (130-400); RDW Coefficient of Variation 13.2 % (11.5-14.5); RDW Standard Deviation 44.7 fL (36.4-46.3); White Blood Count 6.33 K/ul (4.8-10.8)
[2024-10-01 07:19] LABS: BUN Creatinine Ratio 7.4 (10-20); Calcium 8.4 mg/dl (8.6-10.3); Magnesium 2.3 mg/dl (1.7-2.4); Phosphorus 5.9 mg/dl (2.5-4.9); Potassium 4.3 mmol/L (3.5-5.1)
[2024-10-01 07:21] LABS: RBC Morphology Unremarkable
[2024-10-01] MEDS: ATORVASTATIN 40 MG TAB PO SCH (08:13)
[2024-10-01] MEDS: PANTOprazole 40 MG TAB PO SCH (08:13)
[2024-10-01] MEDS: CHOLECALCIFEROL 25 MCG (1000 UNITS) TAB PO SCH (08:14)
[2024-10-01] MEDS: ASPIRIN 81 MG ECTAB PO SCH (08:14)
[2024-10-01] MEDS: ISOSORBIDE MONO EXTENDED REL 60 MG TABCR PO SCH (08:14)
[2024-10-01] MEDS: EZETIMIBE 10 MG TAB PO SCH (08:14)
--- NOTE | 2024-10-01 08:18 | Nephrology Consultation ---
Date of Consultation October 01, 2024 Assessment & Plan (1) Peritonitis: gram negative PD peritonitis, moving bowels well but still w/ peritoneal signs and today slightly cloudy effluent presented w/ cloudy effluent, 2505 cell count 75% PMN, GS negative; cx w/ prelim GNR as of 10/01 AM. symptoms emerged through course of day and treatment pivoted OP > IP. his dialysate specimens are processing with [email or web address] d/t pivot. -continue empiric IP ceftazidime (1.5 gm daily) and IP vancomycin (had 2.250 gm 09/30; for another 1.5 gm 10/01) > in 2L bag 1.5% for 6hr dwell (vanco already infused when prelim cx posted) -continue nystatin to prevent fungal peritonitis -random vanco ordered for am on off chance any G+ grow on cx -at this point plan tentatively 3 wks IP abtx, as OP once stabilized; already d/w OP dialysis team about training his (his caregiver) to do these abtx -repeat fluid studies for tomorrow afternoon -f/u pending [place] [facility] [place] RELY on primary service to >> control abd pain and ensure bowels moving Care coordinated w/ Dr Lopez, [facility], dialysis and floor RN in person and via TText re abtx, cx results, dialyisis and peritonitis tx plans; we are in agreement. (2) Peritoneal dialysis status: continue PD today approximating home rx (no ico available here though); clinical suspicion he has moved from low-average to low transporter; OP PET test pending; tailoring RX to minimize UF given hypotension/peritonitis; CXR clear on 09/30 despite HF hx 09/30 > 627 UF after 6 hr dwell today for abtx, will start PD > 3 x 3L exchanges over 15 hours all 1.5% (3) Chronic heart failure with reduced ejection fraction (HFrEF, <= 40%) and combined systolic and diastolic dysfunction: complex coronary/vascular dz s/p LAD stent 12/2023 w/ in stent stenosis 06/2023, admitted here NSTEMI/AF w/ RVR last month s/p circ stent; September 2022 small R lacunar stroke w/ mild residual L hand/leg weakness >monitor anemia; would not let hgb drift much below 8 given cardiac hx (4) Hyperphosphatemia: ensure good dialysis and that he has his off formulary OP binders History of Present Illness Reason for Consultation: PD patient, PD peritonitis Requesting Physician: Dr Lopez Attending Physician: Stevenson Lopez MD History of Present Illness 74 y/o M whom I'm asked to see for ESRD on PD with peritonitis was admitted last evening for PD peritonitis. 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 Also ESRD on dialysis: in - center HD > PD. he felt very poorly on 09/29 >> profound weakness and fatigue. had been noticing some relative hypotension as well w/ sbp in 90s. exertional dyspnea worse than one month back and noticeable crossing one room to another. On September 30 in the morning he developed cloudy effluent (drainage from peritoneal dialysis; I had previously been misinformed that he had cloudy urine): he was advised to come to the outpatient dialysis clinic to collect PD fluid specimen for analysis or PD peritonitis as well as advised to follow-up with PCP/Urology regarding urinary symptoms. the transportation security screener running PD fluid peritonitis specimen collection felt the patient looked poorly and based on this we recommended ER evaluation. He developed peritoneal signs en route to the hospital. Prior to this no abdominal pain. He was admitted to the floor. I coordinated intraperitoneal empiric antibiotics with ceftazidime and vancomycin. Also started on Zosyn to cover sigmoid diverticulitis seen on admission imaging. His cardiac medications were continued. Ongoing abdominal pain diffusely with peritoneal signs. ongoing still slightly improved fatigue. Unchanged exertional dyspnea.Denies chest pain or palpitations or lower extremity edema. Moving bowels regularly and consistently. Did have emesis this morning and vomited up his pills, for which he is now on clears. Yesterday en route to the hospital he developed abdominal pain generalized and continues to have this. Moving bowels appropriately yesterday and today, As well as days prior. Prior to presentation he had a T- max of 100 degrees on Septemberlfth doctor of nurse anesthesia. Intermittent gross hematuria. No rash. No joint pain. No new focal numbness or weakness. Allergies Allergy/AdvReac Type Severity Reaction Status Date / Time Sulfa (Sulfonamide Allergy Intermediate RASH/VOMITI Verified 09/12/24 18:14 Antibiotics) NG egg yolk AdvReac Intermediate Diarrhea Verified 09/12/24 18:14 UNKNOWN PHOSPHATE BINDER AdvReac Severe SEVERE Uncoded 09/12/24 18:14 DIARRHEA Home Medications Medication Instructions Recorded Confirmed Type atorvastatin 80 mg tablet 80 mg PO DAILY 10/03/22 09/30/24 History cholecalciferol (vitamin D3) 25 25 mcg PO DAILY 10/03/22 09/30/24 History mcg (1,000 unit) capsule ezetimibe 10 mg tablet 10 mg PO QAM 10/03/22 09/30/24 History semaglutide 2 mg/dose (8 mg/3 mL) 2 mg subcut WK 10/03/22 09/30/24 History subcutaneous pen injector (Ozempic) insulin glargine 100 unit/mL (3 12 unit (0.12 mL) subcut QAM #15 mL 10/14/22 09/30/24 Rx mL) subcutaneous pen (Lantus Solostar U-100 Insulin) ferric citrate 210 mg iron tablet 1,000 mg PO BID 09/12/24 09/30/24 History (Auryxia) gentamicin 0.1 % topical cream 1 applic topical DIRECTED PRN 09/12/24 09/30/24 History NEEDED iron sucrose 200 mg iron/10 mL 20 mg IV .[id number] 09/12/24 09/30/24 History intravenous solution isosorbide mononitrate 120 mg 60 mg PO QAM 09/12/24 09/30/24 History tablet,extended release 24 hr metoprolol succinate 25 mg 12.5 mg PO BID 09/12/24 09/30/24 History tablet,extended release 24 hr nitroglycerin 0.4 mg sublingual 0.4 mg sublingual DIRECTED PRN 09/12/24 09/30/24 History tablet Chest Pain pantoprazole 40 mg tablet,delayed 40 mg PO QAM 09/12/24 09/30/24 History release ticagrelor 90 mg tablet (Brilinta) 90 mg PO BID 09/12/24 09/30/24 History vitamin E 268 mg (400 unit) capsule 268 mg PO DAILY 09/12/24 09/30/24 History amiodarone 200 mg tablet 200 mg PO BID #60 tabs 09/17/24 09/30/24 Rx apixaban 5 mg tablet (Eliquis) 5 mg PO BID #60 tabs 09/17/24 09/30/24 Rx aspirin 81 mg tablet,delayed 81 mg PO DAILY 8 days #0 tabs 09/17/24 09/30/24 Rx release cephalexin 250 mg capsule 250 mg PO DAILY 7 days #7 caps 09/27/24 09/30/24 Rx Patient History Medical History Chronic heart failure with reduced ejection fraction (HFrEF, <= 40%) and combined systolic and diastolic dysfunction CAD (coronary artery disease), [place] coronary artery Atrial fibrillation with rapid ventricular response Non-ST elevation [place] (NSTEMI) Obesity due to excess calories with serious comorbidity Acute CVA (cerebrovascular accident) COVID-19 JACOB (obstructive sleep apnea) Surgical History History of parathyroidectomy 2009 History of adenectomy 2013 @ [facility] Family History Father , age 90 with prostate cancer Prostate cancer Mother , age 67 of congestive heart failure Heart disease Other Diabetes Social History (Updated 09/30/24 @ 18:20 by Janie Madrigal PA-C) Smoking Status: Never smoker Tobacco Type: Cigarettes Age Started Using Tobacco: 12; Age Quit Using Tobacco: 35; packs per day: 1; Do You Dip or Chew Tobacco: No; Hx Alcohol Use: Yes Alcohol type: hard liquor Alcohol Intake Frequency: Monthly or Less Alcohol Intake Frequency Comment: rare, special occasions Hx Substance Use: No Preferred Language: [place] Sudanese Communication Ability: Effective Urology Nurse Required: No Beliefs That Will Affect Care: None Current Living Situation: Spouse current occupational status: retired 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 Other Information That Helps Us Care for You: No Feels Safe at Home: Yes Safety Concerns: Feels Safe At This Time Assistive Devices: Cane and Walker Review of Systems 2 Review of Systems: All systems reviewed & are unremarkable except as noted in HPI & below Physical Exam 2 Constitutional: well developed, well nourished and comfortable ( But clearly tired); no acute distress Eyes: EOM intact bilaterally ENMT: Mouth: + dry oral mucous membranes Neck: no nuchal rigidity Respiratory: normal respiratory effort Auscultation: + diminished lung sounds and + crackles ( a few bibasilar) Cardiovascular: Rate/Rhythm: regular rate and regular rhythm Heart Sounds: + murmur Extremities: no edema Gastrointestinal (Abdomen): Inspection/Auscultation: normal bowel sounds P ercussion/Palpation: abdomen soft; abdomen nontender Musculoskeletal: Extremities: strength 5/5 throughout Skin: no rashes, warm and dry Neurologic: block, fluent speech, no tremor Results & Data Vital Signs (Past 12 Hours) Vital Signs Temp Pulse Resp BP Pulse Ox O2 Del Method 10/01/24 07:20 36.6 C 63 18 91 Room Air 10/01/24 04:14 74 93/55 L 10/01/24 03:38 36.2 C L 70 18 83/51 L 97 Room Air 10/01/24 00:56 Room Air 09/30/24 22:45 36.6 C 73 18 99/62 L 96 Room Air Laboratory Results 10/01/24 05:57 10/01/24 05:57 GMG DATA: Gram stain > GNR; rare PMN PRELIM GROWTH > GNR Cell count/ diff > 2505 nucleated cells, 75% PMN Diagnostic Findings CT a/p no con 1. Suspected mild acute diverticulitis. There is no sign of perforation or abscess formation 1. Small to moderate amount of ascites, with a peritoneal dialysis catheter in place 2. Extensive atherosclerosis 3. Small adrenal nodule that may represent a benign adenoma but is indeterminate in nature. A follow-up adrenal protocol abdominal CT or MRI could be obtained 4. Bilateral renal cysts 5. Enlarged prostate. Correlation with PSA levels may be useful CXR unremarkable
[2024-10-01] MEDS: ONDANSETRON INJ 2 MG/ML 2 ML VIAL IV STA (09:45)
[2024-10-01] MEDS: PERITONEAL 1.5% IP STA (10:21)
[2024-10-01] MEDS: CEFTAZIDIME IP STA (10:21)
[2024-10-01] MEDS: DIALYSIS IP STA (10:21)
[2024-10-01] MEDS: VANCOMYCIN HCL IP STA (10:21)
--- NOTE | 2024-10-01 10:37 | Electrocardiogram Report ---
Test Reason : Blood Pressure : */* mmHG Vent. Rate : 79 BPM Atrial Rate : 79 BPM P-R Int : 170 ms QRS Dur : 96 ms QT Int : 422 ms P-R-T Axes : 102 5 120 degrees QTcB Int : 483 ms Normal sinus rhythm Low voltage QRS Cannot rule out Anterior infarct (cited on or before 14-Sep-2024) Abnormal ECG When compared with ECG of 27-Sep-2024 13:18, QT has lengthened Confirmed by Blayne Jarquin ([id number]) on 10/01/2024 10:36:26 AM Referred By: Emeka Sheets Confirmed By: Blayne Jarquin
--- NOTE | 2024-10-01 11:22 | Hospitalist Progress Note ---
Date of Service October 01, 2024 Assessment & Plan (1) Peritonitis: (2) Peritoneal dialysis status: (3) End stage renal disease: (4) Diabetes mellitus, type II: (5) HTN (hypertension): (6) CAD (coronary artery disease), [place] coronary artery: (7) History of atrial fibrillation: (8) Hematuria: Plan This is a 74 y/o male with ESRD on PD, recent admission for afib with RVR, recent NSTEMI due to in-stent thrombosis, CAD, chronic HFrEF with combined systolic and diastolic dysfunction, insulin-requiring DM2, hyperaldosteronism, adrenal adenoma s/p resection, JACOB not on CPAP, prior right lacunar infarct 2022, 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 Peritonitis in setting of Peritoneal dialysis catheter Sepsis POA Possible mild sigmoid diverticulitis Patient presented to the hospital with low-grade fever, abdominal pain. Peritoneal dialysis fluid showing total cells of 2505 with 75% neutrophils Gram stainno organisms seen; rare polymorphonuclear leukocytes Culture pending Started on intraperitoneal vancomycin and ceftazidime. Will follow-up on culture results. Started on Zosyn for possible sigmoid diverticulitis; continue. Follow-up on blood culture Infectious disease consulted for comanagement Patient currently made n.p.o. due to nausea/vomiting; will start clear liquid diet and advance as tolerated after improvement in nausea and appetite CAD s/p recent NSTEMI, underwent cath with PCI and new overlapping ALYSSA in the proximal circumflex Denies anginal symptoms at present Continue aspirin, Brilinta, Eliquis For now; cardiac cath was on 09/13; plan to stop aspirin after 30 days; continue on Brilinta and Eliquis Continue on Lipitor NGT Hematuria Patient reports intermittent hematuria for several weeks He is currently on aspirin/Brilinta/Eliquis for recent in-stent thrombosis, atrial fibrillation with RVR. Hemoglobin down trended from 10.1-7.9; Monitor for recurrence of hematuria Will obtain urology consultation if hematuria recurs History of atrial fibrillation - Started on amiodarone during last admission - will continue - EKG on admission - pt currently in sinus rhythm - Continue chronic anticoagulation #Insulin-requiring DM2 - Continue basal insulin with sliding scale coverage - Diabetic renal heart-healthy diet - BSG ACHS Code status: DNR/DNI (no CPR, intubation) but would be okay with pressors or similar measures DVT prophylaxis: on Eliquis Time spent evaluating patient, direct bedside care, chart review, placing orders, interpretation of diagnostic studies, discussion with consultants, patient, and family members, as well as other required patient management activities is 50 minutes Please note the above document was generated using voice recognition software. It may contain grammatical, syntax or spelling errors. Any formal questions or concerns about the content, text or information contained within the body of this dictation should be directly addressed to the provider for clarification Admission and Anticipated Discharge Date Admission Date: September 30, 2024 Subjective Patient seen and examined at bedside. Patient had episodes of vomiting today; reports generalized abdominal pain and discomfort. Review of Systems Review of Systems: All systems reviewed & are unremarkable except as noted in Subjective Physical Exam Physical Exam: Constitutional: Alert oriented x 3; not in distress. Respiratory: normal respiratory effort, lungs clear to auscultation, no wheeze, rales, rhonchi. Normal insp/exp effort, no accessory muscle use Cardiovascular: RRR, no murmur, no edema Vessels: no JVD or carotid bruit Chest: normal inspection of chest Abdomen: Tenderness present all over the abdomen. Musculoskeletal: no cyanosis or clubbing, extremities motor strength 5/5 Skin: no rashes, warm and dry normal turgor Neurologic: PERRL, EOMI, accommodation nl, no face palsy, no dysarthria CN's II- XI intact bilaterally and moves all extremities Psychiatric: A+Ox3, euthymic affect Results & Data Results & Data Vital Signs (Past 12 Hours) Vital Signs Temp Pulse Resp BP Pulse Ox O2 Del Method 10/01/24 08:12 103/69 10/01/24 07:20 36.6 C 63 18 91 Room Air 10/01/24 04:14 74 93/55 L 10/01/24 03:38 36.2 C L 70 18 83/51 L 97 Room Air 10/01/24 00:56 Room Air (4) Diabetes mellitus, type II Chronic kidney disease stage: on chronic dialysis Diabetes mellitus complication detail: with chronic kidney disease Diabetes mellitus complication status: with kidney complications 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 transplanted heart: [place] heart Qualified Code(s): I25.110 - Atherosclerotic heart disease of [place] coronary artery with unstable angina pectoris (8) Hematuria Hematuria type: gross Qualified Code(s): R31.0 - Gross hematuria
[2024-10-01] MEDS ORDERED: HYDROmorphone INJ 0.5 MG/0.5 ML SYR IV PRN (11:53)
--- NOTE | 2024-10-01 14:04 | Urology Consultation ---
Date of Consultation October 01, 2024 Assessment & Plan (1) Hematuria: Plan 74yo male with multiple comorbidities including ESRD on PD admitted with peritonitis in the setting of PD catheter and suspected mild acute diverticulitis Urology consulted for intermittent hematuria He is afebrile with stable vitals at present Labs reviewed-WBC 6.33, hemoglobin 7.9, creatinine 11.7 Urine and blood cultures pending, on Zosyn CT reviewed - No stones or hydronephrosis, bilateral renal cysts, enlarged prostate At the present time, he is voiding without issue and denies gross hematuria. Urine was clear yellow in urinal today. Recommend continued monitored. If he were to develop gross hematuria/clot retention, a large bore Shaffer catheter can be placed and manual hand irrigation employed. Follow cultures and tailor per culture sensitivities. We reviewed hematuria and the workup. Patient does follow-up with [facility] in [place]. He reports his urologist is aware of the hematuria and he plans to follow-up with him for ongoing care. Urology will sign off. Please call with any question/concerns or changes in patient status. History of Present Illness Attending Physician: Stevenson Lopez MD History of Present Illness 74 year old male with multiple comorbidities including ESRD on PD who presented to the ED with hypotension, increasing weakness and fatigue, and intermittent hematuria and is admitted with peritonitis in the setting of PD catheter and suspected mild acute diverticulitis. Urology was consulted for intermittent hematuria. Patient reports intermittent hematuria for several weeks. He reports passing a few small clots at times. No pain or dysuria with voiding. Urine is clear yellow in urinal today. He does follow with [facility] in [place]. He reports his urologist is aware of the hematuria. Chart review- He is on aspirin/Brilinta/Eliquis for recent in-stent thrombosis, atrial fibrillation with RVR Urinalysis 09/27/2024 shows 3+ blood, 1+ LE,>20 RBC,>50 WBC, 1+ bacteria Urinalysis 10/01/2024 shows 3+ blood, 1+ LE,>20 RBC, negative bacteria Urine culture 09/27 negative Urine and blood cultures 09/[address] abdomen pelvis- 1. Suspected mild acute diverticulitis. There is no sign of perforation or abscess formation 2. Small to moderate amount of ascites, with a peritoneal dialysis catheter in place 3. Extensive atherosclerosis 4. Small adrenal nodule that may represent a benign adenoma but is indeterminate in nature. A follow-up adrenal protocol abdominal CT or MRI could be obtained 5. Bilateral renal cysts 6. Enlarged prostate. Correlation with PSA levels may be useful Allergies Allergy/AdvReac Type Severity Reaction Status Date / Time Sulfa (Sulfonamide Allergy Intermediate RASH/VOMITI Verified 09/12/24 18:14 Antibiotics) NG egg yolk AdvReac Intermediate Diarrhea Verified 09/12/24 18:14 UNKNOWN PHOSPHATE BINDER AdvReac Severe SEVERE Uncoded 09/12/24 18:14 DIARRHEA Home Medications Medication Instructions Recorded Confirmed Type atorvastatin 80 mg tablet 80 mg PO DAILY 10/03/22 09/30/24 History cholecalciferol (vitamin D3) 25 25 mcg PO DAILY 10/03/22 09/30/24 History mcg (1,000 unit) capsule ezetimibe 10 mg tablet 10 mg PO QAM 10/03/22 09/30/24 History semaglutide 2 mg/dose (8 mg/3 mL) 2 mg subcut WK 10/03/22 09/30/24 History subcutaneous pen injector (Ozempic) insulin glargine 100 unit/mL (3 12 unit (0.12 mL) subcut QAM #15 mL 10/14/22 09/30/24 Rx mL) subcutaneous pen (Lantus Solostar U-100 Insulin) ferric citrate 210 mg iron tablet 1,000 mg PO BID 09/12/24 09/30/24 History (Auryxia) gentamicin 0.1 % topical cream 1 applic topical DIRECTED PRN 09/12/24 09/30/24 History NEEDED iron sucrose 200 mg iron/10 mL 20 mg IV .[id number] 09/12/24 09/30/24 History intravenous solution isosorbide mononitrate 120 mg 60 mg PO QAM 09/12/24 09/30/24 History tablet,extended release 24 hr metoprolol succinate 25 mg 12.5 mg PO BID 09/12/24 09/30/24 History tablet,extended release 24 hr nitroglycerin 0.4 mg sublingual 0.4 mg sublingual DIRECTED PRN 09/12/24 09/30/24 History tablet Chest Pain pantoprazole 40 mg tablet,delayed 40 mg PO QAM 09/12/24 09/30/24 History release ticagrelor 90 mg tablet (Brilinta) 90 mg PO BID 09/12/24 09/30/24 History vitamin E 268 mg (400 unit) capsule 268 mg PO DAILY 09/12/24 09/30/24 History amiodarone 200 mg tablet 200 mg PO BID #60 tabs 09/17/24 09/30/24 Rx apixaban 5 mg tablet (Eliquis) 5 mg PO BID #60 tabs 09/17/24 09/30/24 Rx aspirin 81 mg tablet,delayed 81 mg PO DAILY 8 days #0 tabs 09/17/24 09/30/24 Rx release cephalexin 250 mg capsule 250 mg PO DAILY 7 days #7 caps 09/27/24 09/30/24 Rx Patient History Medical History Chronic heart failure with reduced ejection fraction (HFrEF, <= 40%) and combined systolic and diastolic dysfunction CAD (coronary artery disease), [place] coronary artery Atrial fibrillation with rapid ventricular response Non-ST elevation [place] (NSTEMI) Obesity due to excess calories with serious comorbidity Acute CVA (cerebrovascular accident) COVID-19 JACOB (obstructive sleep apnea) Surgical History History of parathyroidectomy 2009 History of adenectomy 2013 @ [facility] [place] Family History Father , age 90 with prostate cancer Prostate cancer Mother , age 67 of congestive heart failure Heart disease Other Diabetes Social History (Updated 09/30/24 @ 18:20 by Janie Madrigal PA-C) Smoking Status: Never smoker Tobacco Type: Cigarettes Age Started Using Tobacco: 12; Age Quit Using Tobacco: 35; packs per day: 1; Do You Dip or Chew Tobacco: No; Hx Alcohol Use: Yes Alcohol type: hard liquor Alcohol Intake Frequency: Monthly or Less Alcohol Intake Frequency Comment: rare, special occasions Hx Substance Use: No Preferred Language: Korean Communication Ability: Effective Office Bookkeeper Required: No Beliefs That Will Affect Care: None Current Living Situation: Spouse current occupational status: retired 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 [employer] Other Information That Helps Us Care for You: No Feels Safe at Home: Yes Safety Concerns: Feels Safe At This Time Assistive Devices: Cane and Walker Review of Systems Review of Systems: All systems reviewed & are unremarkable except as noted in HPI & below Physical Exam Constitutional: no acute distress Respiratory: no respiratory distress and no labored breathing Musculoskeletal: Head/Neck/Chest: normocephalic Skin: No visible rashes or lesions to exposed skin areas Neurologic: awake Psychiatric: A+Ox3, euthymic affect Genitourinary: Clear yellow urine in urinal Results & Data Vital Signs (Past 12 Hours) Vital Signs Temp Pulse Resp BP Pulse Ox O2 Del Method 10/01/24 11:34 36.6 C 67 18 100/65 92 Room Air 10/01/24 10:05 36.6 C 63 18 10/01/24 08:12 103/69 10/01/24 07:20 36.6 C 63 18 91 Room Air 10/01/24 04:14 74 93/55 L 10/01/24 03:38 36.2 C L 70 18 83/51 L 97 Room Air PG Care Time/CCT Total # of Minutes Spent Total Time Spent with Patient: Total time spent is greater than 50% in coordination of care (as documented) at patient's floor/unit and/or counseling patient: Coding Level of Care Code 15180 INT INP/OBS CARE 140MIN Diagnoses Gross hematuria R31.0 Hematuria type: gross (1) Hematuria Hematuria type: gross Qualified Code(s): R31.0 - Gross hematuria
[2024-10-01] MEDS ORDERED: ONDANSETRON INJ 2 MG/ML 2 ML VIAL IV PRN (16:40)
--- NOTE | 2024-10-01 17:42 | Electrocardiogram Report ---
Test Reason : Blood Pressure : */* mmHG Vent. Rate : 73 BPM Atrial Rate : 73 BPM P-R Int : 176 ms QRS Dur : 102 ms QT Int : 434 ms P-R-T Axes : 107 -4 99 degrees QTcB Int : 478 ms Normal sinus rhythm Low voltage QRS Possible Anterolateral infarct (cited on or before 14-Sep-2024) Abnormal ECG When compared with ECG of 30-Sep-2024 16:12, No significant change was found Confirmed by Blayne Jarquin ([id number]) on 10/01/2024 5:41:55 PM Referred By: Emeka Sheets Confirmed By: Blayne Jarquin
[2024-10-02] MEDS: MoRPHine SULFATE 2 MG/ML CARP IV STA ×2 (01:34→02:08)
--- NOTE | 2024-10-02 05:48 | Communication Note ---
Date of Service: October 02, 2024 Review of [facility] PD dialysate culture: Gram negative bacilli AND gram positive bacilli -f/u vanco trough pending from am -for today's dwell >> 1.5% dextrose, 2L bag with 1.5 gm ceftazidime and 1.5 gm cefazolin >discussed w/ pharmacy
[2024-10-02 06:33] LABS: Basophils # (auto) 0.02 K/uL (0.00-0.20); Basophils % (auto) 0.4 %; Eosinophils # (auto) 0.16 K/uL (0.00-0.50); Eosinophils % (auto) 3.1 %; Hematocrit (blood only) 23.3 % (42.0-52.0); Hemoglobin 7.6 g/dl (14.0-18.0); Immature Granulocytes # (auto) 0.03 K/uL (0.01-0.20); Immature Granulocytes % (auto) 0.6 %; Lymphocytes # (auto) 0.82 K/uL (1.20-3.40); Mean Corpuscular Hgb Conc 32.6 g/dL (32.0-36.0); Mean Corpuscular Volume 92.1 fL (80.0-100.0); Mean Platelet Volume 10.5 fL (9.4-12.4); Monocytes # (auto) 0.37 K/uL (0.11-0.59); Monocytes % (auto) 7.2 %; Neutrophils # (auto) 3.74 K/uL (1.40-6.50); Neutrophils % (auto) 72.7 %; Platelet Count 178 K/uL (130-400); RDW Coefficient of Variation 13.2 % (11.5-14.5); RDW Standard Deviation 44.1 fL (36.4-46.3); Red Blood Count 2.53 M/uL (4.70-6.10); White Blood Count 5.14 K/ul (4.8-10.8)
[2024-10-02 07:00] LABS: RBC Morphology Unremarkable
--- NOTE | 2024-10-02 07:57 | Nephrology Progress Note ---
Date of Service October 02, 2024 Assessment & Plan (1) Peritonitis: Plan: complex multiorganism PD peritonitis, moving bowels well but still on 10/01 w/ peritoneal signs and AM slightly cloudy effluent but 10/01 PM effluent cleared presented w/ cloudy effluent, 2505 cell count 75% PMN, GS negative; cx w/ prelim GNR AND GPR as of 10/02 AM. symptoms emerged through course of day 09/30 and treatment pivoted OP > IP. [facility]. concern for secondary peritonitis such as d/t diverticulitis given polymicrobial PD peritonitis; also given unusual microbe of G+ rods, will get fungal cxs though no organisms seen on GS; if non tuberculous Mycobacterium found, may need PD catheter removal >>>6hr IP dwell as below today followed by repeat fluid studies including amylase levels given concern for secondary process; will also get fungal cultures on dialysate -continue empiric IP ceftazidime (1.5 gm today) and today will add IP cefazolin (1.5 gm today); no need for further vancomycin (had 2.250 gm 09/30; for another 1.5 gm 10/01) > in 2L bag 1.5% for 6hr dwell (vanco already infused 10/01 when prelim cx posted; today's level 27) -continue nystatin to prevent fungal peritonitis until IP abtx complete >>moving forward with IV abtx only, pip/tazo x 5-7 days and then 2-3 wks abtx thereafter, IP if PD cath retained or other if not -at this point plan tentatively 3-4 wks abtx, as OP once stabilized >>need to clarify tx regimen if we have to change modality >> possible his membrane -f/u pending cx in [facility] system RELY on primary service to >> control abd pain and ensure bowels moving Care coordinated w/ Aidan Hercules and Yong in person; extended discussion with Dr Mckeon via TText, RP and dialysis both inpatient and outpatient RN by phone re volume status, complex peritonitis tx concerns/cx results and plans to f/u response to therapy, current abtx, cx results, dialysis plans, anemia transfusion threshold plans; we are in agreement. (2) Peritoneal dialysis status: Plan: continue PD today approximating home rx (no ico available here though); clinical suspicion he has moved from low-average to low transporter; OP PET test pending; tailoring RX to minimize UF given hypotension/peritonitis; CXR clear on 09/30 despite HF hx 09/30 > 627 UF + 500 gain 10/01 > + GAIN 800 >urgent CXR as he has retained fluid and may need pRBC today >> CXR clear >daily standing wts by DIALYSIS nurse w/ dry abdomen. his TW is 113 kg; his standing weight today is 106.6 w/ dry abdomen while NPO after 6 hr dwell today for abtx then 2hr dwell for specimen collection, will start PD > 4 x 3L exchanges w/ 2 hr dwells all 2.5% (3) Chronic heart failure with reduced ejection fraction (HFrEF, <= 40%) and combined systolic and diastolic dysfunction: Plan: complex coronary/vascular dz s/p LAD stent 12/2023 w/ in stent stenosis 06/2023, admitted here NSTEMI/AF w/ RVR last month s/p circ stent; September 2022 small R lacunar stroke w/ mild residual L hand/leg weakness >monitor anemia; would not let hgb drift much below 8 given cardiac hx -- will discuss possible transfusion w/ hospitalist for hgb 7.6 today; per cardiology transfusion threshold below 10 may even be reasonable (4) Hyperphosphatemia: Plan: ensure good dialysis and that he has his off formulary OP binders; that said, he's currently NPO d/t n/v yesterday so just have these ready >> ordered his latest OP regimen > phosLo 07/20 Admission and Anticipated Discharge Date Admission Date: September 30, 2024 Subjective bad night >> dyspnea, chest pain and several PD alarms. abd pain improving but still present on evaluation this am; no further emesis. per PD dialyzer he retained 0.8L of fluid overnight. culture w/ 2 organisms; pt with abd pain ongoing deb LLQ. urology evaluated for gross hematuria > not an active issue currently but for cont monitoring; has [facility] urology. Review of Systems 2 Review of Systems: All systems reviewed & are unremarkable except as noted in Subjective Physical Exam 2 Constitutional: well developed, well nourished and comfortable ( But clearly tired); no acute distress Eyes: EOM intact bilaterally ENMT: Mouth: + dry oral mucous membranes Neck: no nuchal rigidity Respiratory: normal respiratory effort Auscultation: + diminished lung sounds Cardiovascular: Rate/Rhythm: regular rate and regular rhythm Heart Sounds: + murmur Extremities: no edema Gastrointestinal (Abdomen): Inspection/Auscultation: normal bowel sounds P ercussion/Palpation: + abdomen tender (deb LLQ) and abdomen soft; no guarding Musculoskeletal: Extremities: strength 5/5 throughout Skin: no rashes, warm and dry Results & Data Vital Signs (Past 12 Hours) Vital Signs Temp Pulse Pulse Resp BP Pulse Ox O2 Del Method 10/02/24 07:20 36.6 C 63 18 96/60 L 99 Room Air 10/02/24 02:11 36.2 C L 62 18 98/61 L 93 Room Air 10/01/24 23:29 67 10/01/24 22:51 37.0 C 62 20 100/63 96 Room Air 10/01/24 19:43 36.9 C 69 18 121/75 95 Room Air Laboratory Results 10/02/24 06:10 10/02/24 15:59 10/02/24 06:10 Diagnostic Findings CXR > no vascular congestion
--- NOTE | 2024-10-02 09:33 | XRay Report ---
XR chest 1V portable CLINICAL HISTORY: dialysis pt SOB, retained a lot of fluid overnight COMPARISON STUDY: 5 1225 FINDINGS: Stable mild cardiomegaly without pulmonary vascular congestion. No effusion, consolidation, or pneumothorax. IMPRESSION: No acute findings. ACT 112: Negative or not required by law. Electronically signed by: Sage Esquivel M.D. 10/02/2024 9:32 AM
[2024-10-02] MEDS: PERITONEAL 1.5% IR SCH (10:00)
[2024-10-02] MEDS: CEFAZOLIN IR SCH (10:00)
[2024-10-02] MEDS: CEFTAZIDIME IR SCH (10:00)
[2024-10-02] MEDS: DIALYSIS IR SCH (10:00)
[2024-10-02] MEDS: PERFLUTREN LIPID MICROSPHERE (DEFINITY) IV ONE (10:55)
[2024-10-02 11:01] LABS: BUN Creatinine Ratio 6.7 (10-20); Calcium 8.1 mg/dl (8.6-10.3); Creatinine Clr Calc Pharmacy 7.5 ml/min; Potassium 3.6 mmol/L (3.5-5.1)
[2024-10-02 11:04] LABS: Troponin I High Sensitivity 50.3 pg/ml (0-20)
[2024-10-02] MEDS ORDERED: SODIUM CHLORIDE 0.9% 100 ML IV PRN ×2 (11:23→21:16)
--- NOTE | 2024-10-02 12:38 | Cardiology Consultation ---
Date of Consultation October 02, 2024 Assessment & Plan (1) Chest pain: (2) Volume overload: (3) Myocardial infarction less than 4 weeks ago: (4) Paroxysmal atrial fibrillation: (5) Peritonitis: (6) Anemia: Plan 74-year-old male presenting with acute peritonitis related to peritoneal dialysis developed substernal chest discomfort overnight relieved with IV morphine. Symptoms possibly related to volume overload in the setting of reduced urine output and reduced fluid removal via peritoneal dialysis. ECG without ischemic changes. His troponins remain mildly elevated, however flat. Review of bedside echocardiogram demonstrates no new regional wall motion abnormalities with stable, moderate left ventricular systolic dysfunction. Recommendations: * Continue 'triple' antiplatelet/anticoagulant therapy with low-dose aspirin, Brilinta, and apixaban. * Apixaban may be held for 48 hours in anticipation of dialysis catheter placement,However, recommend continuing dual antiplatelet therapy uninterrupted at this time due to recent myocardial infarction secondary to subacute Lcx stent thrombosis. * Transfuse to maintain serum hemoglobin greater than 8.0 g/dL * Volume management as per nephrology, consider IV diuretic therapy to augment urine output in the setting of ESRD with peritoneal dialysis * Titration of antianginal therapy limited by borderline resting hypotension * Continue metoprolol and isosorbide monohydrate as ordered * Continue amiodarone 200 mg twice daily * Reduce amiodarone to 200 mg once daily at discharge I spent a total of 65 minutes on the date of service in preparation, delivery, and documentation of the care provided to this patient, excluding any time spent in the performance of separately billed services. Micah Beach DO [facility] History of Present Illness Reason for Consultation: Chest pain Requesting Physician: Dr. Reid Attending Physician: Whitley Hercules MD History of Present Illness Complex 74-year-old male recently hospitalized due to paroxysmal atrial fibrillation with rapid ventricular response and non-ST elevation NH requiring drug-eluting stent implantation to left circumflex. Non-STEMI occurred in the setting of subacute circumflex stent thrombosis. He presented to the emergency department 09/30/2024 with peritonitis related to his peritoneal dialysis catheter. Last evening, patient developed substernal chest discomfort with associated shortness of breath. Symptoms lasting only 45 minutes. Stat ECG without changes. High-sensitivity troponin mildly elevated, however, flat. Chest discomfort resolved after IV morphine and he has been chest pain-free this AM. Preliminary review of bedside echocardiogram demonstrates stable, moderate LV systolic dysfunction unchanged from echocardiogram performed in August. Patient's weight is up approximately 7 pounds since most recent hospitalization in August. Positive fluid balance recorded with decreased urine output since most recent cardiac catheterization 08/2024. Allergies Allergy/AdvReac Type Severity Reaction Status Date / Time Sulfa (Sulfonamide Allergy Intermediate RASH/VOMITI Verified 09/12/24 18:14 Antibiotics) NG egg yolk AdvReac Intermediate Diarrhea Verified 09/12/24 18:14 UNKNOWN PHOSPHATE BINDER AdvReac Severe SEVERE Uncoded 09/12/24 18:14 DIARRHEA Home Medications Medication Instructions Recorded Confirmed Type atorvastatin 80 mg tablet 80 mg PO DAILY 10/03/22 09/30/24 History cholecalciferol (vitamin D3) 25 25 mcg PO DAILY 10/03/22 09/30/24 History mcg (1,000 unit) capsule ezetimibe 10 mg tablet 10 mg PO QAM 10/03/22 09/30/24 History semaglutide 2 mg/dose (8 mg/3 mL) 2 mg subcut WK 10/03/22 09/30/24 History subcutaneous pen injector (Ozempic) insulin glargine 100 unit/mL (3 12 unit (0.12 mL) subcut QAM #15 mL 10/14/22 09/30/24 Rx mL) subcutaneous pen (Lantus Solostar U-100 Insulin) ferric citrate 210 mg iron tablet 1,000 mg PO BID 09/12/24 09/30/24 History (Auryxia) gentamicin 0.1 % topical cream 1 applic topical DIRECTED PRN 09/12/24 09/30/24 History NEEDED iron sucrose 200 mg iron/10 mL 20 mg IV .[id number] 09/12/24 09/30/24 History intravenous solution isosorbide mononitrate 120 mg 60 mg PO QAM 09/12/24 09/30/24 History tablet,extended release 24 hr metoprolol succinate 25 mg 12.5 mg PO BID 09/12/24 09/30/24 History tablet,extended release 24 hr nitroglycerin 0.4 mg sublingual 0.4 mg sublingual DIRECTED PRN 09/12/24 09/30/24 History tablet Chest Pain pantoprazole 40 mg tablet,delayed 40 mg PO QAM 09/12/24 09/30/24 History release ticagrelor 90 mg tablet (Brilinta) 90 mg PO BID 09/12/24 09/30/24 History vitamin E 268 mg (400 unit) capsule 268 mg PO DAILY 09/12/24 09/30/24 History amiodarone 200 mg tablet 200 mg PO BID #60 tabs 09/17/24 09/30/24 Rx apixaban 5 mg tablet (Eliquis) 5 mg PO BID #60 tabs 09/17/24 09/30/24 Rx aspirin 81 mg tablet,delayed 81 mg PO DAILY 8 days #0 tabs 09/17/24 09/30/24 Rx release cephalexin 250 mg capsule 250 mg PO DAILY 7 days #7 caps 09/27/24 09/30/24 Rx Patient History Medical History Chronic heart failure with reduced ejection fraction (HFrEF, <= 40%) and combined systolic and diastolic dysfunction CAD (coronary artery disease), [place] coronary artery Atrial fibrillation with rapid ventricular response Non-ST elevation NH (NSTEMI) Obesity due to excess calories with serious comorbidity Acute CVA (cerebrovascular accident) COVID-19 JACOB (obstructive sleep apnea) Surgical History History of parathyroidectomy 2009 History of adenectomy 2013 @ [facility] Family History Father , age 90 with prostate cancer Prostate cancer Mother , age 67 of congestive heart failure Heart disease Other Diabetes Social History Smoking Status: Never smoker Tobacco Type: Cigarettes Age Started Using Tobacco: 12; Age Quit Using Tobacco: 35; packs per day: 1; Do You Dip or Chew Tobacco: No; Hx Alcohol Use: Yes Alcohol type: hard liquor Alcohol Intake Frequency: Monthly or Less Alcohol Intake Frequency Comment: rare, special occasions Hx Substance Use: No Preferred Language: Senegalese Communication Ability: Effective Sales Teacher Required: No Beliefs That Will Affect Care: None Current Living Situation: Spouse current occupational status: retired 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 [employer] Other Information That Helps Us Care for You: No Feels Safe at Home: Yes Safety Concerns: Feels Safe At This Time Assistive Devices: Cane and Walker Review of Systems Review of Systems: All systems reviewed & are unremarkable except as noted in Subjective Physical Exam Constitutional: well nourished; no acute distress Respiratory: no respiratory distress, no labored breathing and no retractions Auscultation: + diminished lung sounds (Bases bilateral) Results & Data Vital Signs (Past 12 Hours) Vital Signs Temp Pulse Pulse Resp BP Pulse Ox O2 Del Method 10/02/24 11:07 36.3 C L 61 18 99/61 L 92 Room Air 10/02/24 09:15 36.3 C L 65 18 10/02/24 08:00 Room Air 10/02/24 08:00 65 10/02/24 07:20 36.6 C 63 18 96/60 L 99 Room Air 10/02/24 02:11 36.2 C L 62 18 98/61 L 93 Room Air Laboratory Results Cardiac Enzymes 10/02/24 10/02/24 10/02/24 Range/Units 00:37 06:10 11:31 Troponin I High Sens 48.9 H D 50.3 H* 53.5 H* (0-20) pg/ml CBC 10/02/24 Range/Units 06:10 WBC 5.14 (4.8-10.8) K/ul RBC 2.53 L (4.70-6.10) M/uL Hgb 7.6 L (14.0-18.0) g/dl Hct 23.3 L (42.0-52.0) % Plt Count 178 (130-400) K/uL Neut # (Auto) 3.74 (1.40-6.50) K/uL Lymph # (Auto) 0.82 L (1.20-3.40) K/uL Vigo # (Auto) 0.37 (0.11-0.59) K/uL Eos # (Auto) 0.16 (0.00-0.50) K/uL Baso # (Auto) 0.02 (0.00-0.20) K/uL Comprehensive Metabolic Panel 10/02/24 Range/Units 06:10 Sodium 133 L (136-145) mmol/L Potassium 3.6 (3.5-5.1) mmol/L Chloride 96 L (98-107) mmol/L Carbon Dioxide 27 (21-32) mmol/L BUN 72 H (6-23) mg/dl Creatinine 10.77 H* D (0.6-1.4) mg/dl Glucose 148 H (70-99(Fasting)) mg/dl Calcium 8.1 L (8.6-10.3) mg/dl Intake and Output 10/01/24 10/02/24 10/02/24 22:59 06:59 14:59 Intake Total 940 / 3077.5 100 / 3077.5 100 / 100 Output Total / 628 -646 / -646 Balance 939 / 2449.5 100 / 2449.5 746 / 746 Intake: IV 100 / 2237.5 100 / 2237.5 Piperacillin/Tazobactam 4.5 gm 100 / 200 100 / 200 In 100 ml @ 25 mls/hr IV Q12H [facility] Rx#:[id number] Oral 840 / 840 100 / 100 Output: Urine 150 / 150 Peritoneal Dialysis -796 / -796 Ultrafiltration Amount # Bowel Movements Other: # Unmeasured Voids 150 Weight 109.5 kg 109.6 kg 106.6 kg Weight Measurement Method Built in Bedsuc health Standing Scale Patient Weight 10/03/24 06:59 Weight 106.6 kg (1) Chest pain Chest pain type: unspecified Qualified Code(s): R07.9 - Chest pain, unspecified (2) Volume overload Hypervolemia type: other Qualified Code(s): E87.79 - Other fluid overload
--- NOTE | 2024-10-02 14:13 | Electrocardiogram Report ---
Test Reason : Blood Pressure : */* mmHG Vent. Rate : 69 BPM Atrial Rate : 69 BPM P-R Int : 186 ms QRS Dur : 114 ms QT Int : 446 ms P-R-T Axes : 88 -1 89 degrees QTcB Int : 477 ms Normal sinus rhythm Anterior infarct (cited on or before 14-Sep-2024) Abnormal ECG When compared with ECG of 30-Sep-2024 20:58, No significant change was found Confirmed by Blayne Jarquin ([id number]) on 10/02/2024 2:13:25 PM Referred By: Emeka Sheets Confirmed By: Blayne Jarquin
--- NOTE | 2024-10-02 14:16 | Electrocardiogram Report ---
Test Reason : Blood Pressure : */* mmHG Vent. Rate : 73 BPM Atrial Rate : 73 BPM P-R Int : 194 ms QRS Dur : 98 ms QT Int : 432 ms P-R-T Axes : 88 30 129 degrees QTcB Int : 475 ms Sinus rhythm with frequent Premature ventricular complexes Abnormal ECG When compared with ECG of 02-Oct-2024 00:17, (unconfirmed) Premature ventricular complexes are now Present Criteria for Inferior infarct are no longer Present Confirmed by Blayne Jarquin ([id number]) on 10/02/2024 2:16:09 PM Referred By: Emeka Sheets Confirmed By: Blayne Jarquin
--- NOTE | 2024-10-02 14:20 | Hospitalist Progress Note ---
Date of Service October 02, 2024 Assessment & Plan (1) Peritonitis: (2) Peritoneal dialysis status: (3) End stage renal disease: (4) Diabetes mellitus, type II: (5) HTN (hypertension): (6) CAD (coronary artery disease), deering coronary artery: (7) History of atrial fibrillation: (8) Hematuria: Plan 74 y/o male with ESRD on PD, recent admission for afib with RVR, recent NSTEMI due to in-stent thrombosis, CAD, chronic HFrEF with combined systolic and diastolic dysfunction, insulin-requiring DM2, hyperaldosteronism, adrenal adenoma s/p resection, JACOB not on CPAP, prior right lacunar infarct 2022, 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 He is being managed for the following: Peritonitis in setting of Peritoneal dialysis catheter Sepsis POA Possible mild sigmoid diverticulitis Patient presented to the hospital with low-grade fever, abdominal pain. Was initially being managed as OP for peritonitis iso PD catheter. 09/30 OP peritoneal culture: gram neg bacilli and gram positive bacilli. f/u final c/s admitting blood culture 09/30: NG 24H. 10/01 Urine Cx neg. Nephro on board, managing PD associated peritonitis - was started on IP vanc and ceftazidime, plan for ID Ceftazidime and cefazolin. Started on Zosyn 10/01 for possible sigmoid diverticulitis; continue. Follow-up on blood culture Infectious disease consulted for comanagement, await recs. Pt reports improvement in N, V. Will start clears and gradually advance as paco. CAD s/p recent NSTEMI, underwent cath with PCI and new overlapping ALYSSA in the proximal circumflex had episode of chest pain w/ dyspnea overnight 10/01-10/02 ---> trop trends flat around 50. ECHO and EKG were unchanged. Continue aspirin, Brilinta, Eliquis For now; cardiac cath was on 09/13; plan to stop aspirin after 30 days; continue on Brilinta and Eliquis Continue on Lipitor NGT cardio on board, appreciate recs. 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 Hemoglobin down trended from 10.1-7.9 ---7.6; blood transfusion consent obtained 10/02, will transfuse 1 unit, will repeat HnH at 8pm Transfuse PRBC for hemoglobin less than 8 or for symptomatic anemia. Patient reports improvement in his hematuria. Will obtain urology consultation if hematuria recurs History of atrial fibrillation - Started on amiodarone during last admission - per cardio cw 200 mg bid for now and 200 mg daily at DC. - EKG on admission - pt currently in sinus rhythm - Continue chronic anticoagulation #Insulin-requiring DM2 - Continue basal insulin with sliding scale coverage - Diabetic renal heart-healthy diet - BSG ACHS Ho adrenal adenoma s/p resection: f/u w/ OP providers as prior for ongoing monitoring and management Code status: DNR/DNI (no CPR, intubation) but would be okay with pressors or similar measures DVT prophylaxis: on Eliquis Please note the above document was generated using voice recognition software. It may contain grammatical, syntax or spelling errors. Any formal questions or concerns about the content, text or information contained within the body of this dictation should be directly addressed to the provider for clarification Admission and Anticipated Discharge Date Admission Date: September 30, 2024 Subjective Patient was seen and examined at bedside. Patient was lying in bed, on room air, NAD. Patient's at bedside who was also updated on plan of care. Patient reports he had an episode of chest discomfort/pain overnight, no radiation, associated with some shortness of breath, relieved with morphine. Patient reports very minimal improvement in his abdominal pain since presentation, has nausea and vomiting yesterday but none today, denies any further chest pain during bedside exam. Patient reports urine getting more clear. Physical Exam Physical Exam: Constitutional: Alert oriented x 3; not in distress. Respiratory: normal respiratory effort, lungs clear to auscultation, no wheeze, rales, rhonchi. Normal insp/exp effort, no accessory muscle use Cardiovascular: RRR, no murmur, no edema Vessels: no JVD or carotid bruit Chest: normal inspection of chest, + murmur. Abdomen: Tenderness present all over the abdomen. PD catheter noted, no s/s infection at port of entry. Musculoskeletal: no cyanosis or clubbing, extremities motor strength 5/5 Skin: no rashes, warm and dry normal turgor Neurologic: PERRL, EOMI, accommodation nl, no face palsy, no dysarthria CN's II- XI intact bilaterally and moves all extremities Psychiatric: A+Ox3, euthymic affect Results & Data Results & Data Vital Signs (Past 12 Hours) Vital Signs Temp Pulse Pulse Resp BP BP Pulse Ox 10/02/24 13:45 36.8 C 64 92/59 L 90 10/02/24 13:15 36.8 C 64 16 96/60 L 97 10/02/24 12:59 36.9 C 64 16 82/47 L 93 10/02/24 12:43 36.9 C 65 16 94/58 L 96 10/02/24 11:07 36.3 C L 61 18 99/61 L 92 10/02/24 09:15 36.3 C L 65 18 10/02/24 08:00 10/02/24 08:00 65 10/02/24 07:20 36.6 C 63 18 96/60 L 99 10/02/24 02:11 36.2 C L 62 18 98/61 L 93 O2 Del Method 10/02/24 13:45 10/02/24 13:15 10/02/24 12:59 10/02/24 12:43 10/02/24 11:07 Room Air 10/02/24 09:15 10/02/24 08:00 Room Air 10/02/24 08:00 10/02/24 07:20 Room Air 10/02/24 02:11 Room Air (4) Diabetes mellitus, type II 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 transplanted heart: deering heart Associated angina: with unstable angina Qualified Code(s): I25.110 - Atherosclerotic heart disease of deering coronary artery with unstable angina pectoris (8) Hematuria Hematuria type: gross Qualified Code(s): R31.0 - Gross hematuria
--- NOTE | 2024-10-02 14:22 | Electrocardiogram Report ---
Test Reason : Blood Pressure : */* mmHG Vent. Rate : 64 BPM Atrial Rate : 64 BPM P-R Int : 184 ms QRS Dur : 108 ms QT Int : 474 ms P-R-T Axes : 86 -7 78 degrees QTcB Int : 489 ms Normal sinus rhythm Low voltage QRS Cannot rule out Anterior infarct (cited on or before 14-Sep-2024) Abnormal ECG When compared with ECG of 02-Oct-2024 02:00, (unconfirmed) Premature ventricular complexes are no longer Present Confirmed by Blayne Jarquin ([id number]) on 10/02/2024 2:21:32 PM Referred By: Emeka Sheets Confirmed By: Blayne aJrquin
[2024-10-02] MEDS ORDERED: CALCIUM ACETATE 667 MG CAP/TAB PO PRN (15:02)
[2024-10-02 16:16] LABS: Hemoglobin 7.9 g/dl (14.0-18.0)
[2024-10-02] MEDS: CALCIUM ACETATE 667 MG CAP/TAB PO SCH (16:58)
--- NOTE | 2024-10-02 17:41 | Infectious Disease Consult ---
<Statement entered by Kristin Mary MD - 10/02/24 20:30> I was present throughout the telemedicine encounter and I interacted personally with the patient .Dr Mclaughlin my fellow and I discussed this case and together formulated a treatment plan Date of Service October 02, 2024 Telehealth Information I performed this visit using a real-time telehealth connection between my location and the patients location ([facility]). After connecting through interactive tele-video, patient was identified by name and date of and/or wristband check.Patient (or authorized healthcare electronics parts sales representative) was informed that this was a telemedicine visit and it was being conducted confidentially over secure lines. My office door was closed and no one else was present in the room with me.Patient (or authorized healthcare electronics parts sales representative) provided consent to proceed with the visit, expressed an understanding of privacy and security of the telemedicine visit, and gave permission to have a hospital electronics parts sales representative in the room in order to assist with the visit and to conduct portions of the visit, as needed. I informed the patient (or authorized healthcare electronics parts sales representative) that I reviewed their record and presented the opportunity for them to ask any questions regarding the visit today. The patient agreed to participate. Assessment & Plan (1) Peritoneal dialysis status: Plan: Peritoneal Dialysis associated peritonitis (2) Diverticulitis: (3) End stage renal disease: (4) Diabetes mellitus, type II: Plan -It is recommended to treat diverticulitis with IV Zosyn for 5 to 7 days. -Ceftazidime intraperitoneally is advised for 2 to 3 weeks for peritoneal dialysis peritonitis. -Removal of the peritoneal dialysis catheter is suggested. History of Present Illness History of Present Illness A 74-year-old male with end-stage renal disease (ESRD) on peritoneal dialysis (PD) presented to the emergency department with several days of hypotension, worsening fatigue and weakness, intermittent hematuria, and recently noted abnormal PD fluid. 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 From August [id number], he was hospitalized with chest pain and atrial fibrillation with RVR (HR 159 bpm), with EKG showing nonspecific ST elevation in inferior leads and T-wave abnormalities in lateral leads. Initial management included esmolol drip, later transitioned to diltiazem and metoprolol. Troponin levels peaked above 87,000 ng/L. Cardiac catheterization on September 13 revealed 95% in-stent thrombosis of the proximal circumflex artery, and he underwent successful PCI with overlapping drug-eluting stent placement. Since discharge, the patient has had persistent hypotension. He returned to the ED on September 27 with hyperkalemia on outpatient labs and mild hematuria. He was started on cephalexin for presumed UTI and discharged. However, symptoms persisted with continued hypotension (as low as 65/40 mmHg), fatigue, weakness, and worsening hematuria. On the morning of presentation, his noted cloudy PD fluid, prompting evaluation at [facility], where fluid was sent for analysis due to concern for peritonitis. He also reported worsening abdominal pain (compared to the prior day), low-grade fever (100F), and loose stools without gross blood. No chest pain or respiratory symptoms were reported. PD effluent was cloudy with WBC count of 2,505 and 75% PMNs. Gram stain was negative; preliminary cultures grew gram-negative rods and gram-positive rods. Allergies Allergy/AdvReac Type Severity Reaction Status Date / Time Sulfa (Sulfonamide Allergy Intermediate RASH/VOMITI Verified 09/12/24 18:14 Antibiotics) NG egg yolk AdvReac Intermediate Diarrhea Verified 09/12/24 18:14 UNKNOWN PHOSPHATE BINDER AdvReac Severe SEVERE Uncoded 09/12/24 18:14 DIARRHEA Home Medications Medication Instructions Recorded Confirmed Type atorvastatin 80 mg tablet 80 mg PO DAILY 10/03/22 09/30/24 History cholecalciferol (vitamin D3) 25 25 mcg PO DAILY 10/03/22 09/30/24 History mcg (1,000 unit) capsule ezetimibe 10 mg tablet 10 mg PO QAM 10/03/22 09/30/24 History semaglutide 2 mg/dose (8 mg/3 mL) 2 mg subcut WK 10/03/22 09/30/24 History subcutaneous pen injector (Ozempic) insulin glargine 100 unit/mL (3 12 unit (0.12 mL) subcut QAM #15 mL 10/14/22 09/30/24 Rx mL) subcutaneous pen (Lantus Solostar U-100 Insulin) ferric citrate 210 mg iron tablet 1,000 mg PO BID 09/12/24 09/30/24 History (Auryxia) gentamicin 0.1 % topical cream 1 applic topical DIRECTED PRN 09/12/24 09/30/24 History NEEDED iron sucrose 200 mg iron/10 mL 20 mg IV .[id number] 09/12/24 09/30/24 History intravenous solution isosorbide mononitrate 120 mg 60 mg PO QAM 09/12/24 09/30/24 History tablet,extended release 24 hr metoprolol succinate 25 mg 12.5 mg PO BID 09/12/24 09/30/24 History tablet,extended release 24 hr nitroglycerin 0.4 mg sublingual 0.4 mg sublingual DIRECTED PRN 09/12/24 09/30/24 History tablet Chest Pain pantoprazole 40 mg tablet,delayed 40 mg PO QAM 09/12/24 09/30/24 History release ticagrelor 90 mg tablet (Brilinta) 90 mg PO BID 09/12/24 09/30/24 History vitamin E 268 mg (400 unit) capsule 268 mg PO DAILY 09/12/24 09/30/24 History amiodarone 200 mg tablet 200 mg PO BID #60 tabs 09/17/24 09/30/24 Rx apixaban 5 mg tablet (Eliquis) 5 mg PO BID #60 tabs 09/17/24 09/30/24 Rx aspirin 81 mg tablet,delayed 81 mg PO DAILY 8 days #0 tabs 09/17/24 09/30/24 Rx release cephalexin 250 mg capsule 250 mg PO DAILY 7 days #7 caps 09/27/24 09/30/24 Rx Patient History Medical History Chronic heart failure with reduced ejection fraction (HFrEF, <= 40%) and combined systolic and diastolic dysfunction CAD (coronary artery disease), [place] coronary artery Atrial fibrillation with rapid ventricular response Non-ST elevation [place] (NSTEMI) Obesity due to excess calories with serious comorbidity Acute CVA (cerebrovascular accident) COVID-19 JACOB (obstructive sleep apnea) Surgical History History of parathyroidectomy 2009 History of adenectomy 2013 @ [facility] [place] Family History Father , age 90 with prostate cancer Prostate cancer Mother , age 67 of congestive heart failure Heart disease Other Diabetes Social History Smoking Status: Never smoker Tobacco Type: Cigarettes Age Started Using Tobacco: 12; Age Quit Using Tobacco: 35; packs per day: 1; Do You Dip or Chew Tobacco: No; Hx Alcohol Use: Yes Alcohol type: hard liquor Alcohol Intake Frequency: Monthly or Less Alcohol Intake Frequency Comment: rare, special occasions Hx Substance Use: No Preferred Language: [place] Communication Ability: Effective Chip Mixer Required: No Beliefs That Will Affect Care: None Current Living Situation: Spouse current occupational status: retired 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 [employer] Other Information That Helps Us Care for You: No Feels Safe at Home: Yes Safety Concerns: Feels Safe At This Time Assistive Devices: Cane and Walker Review of Systems Constitutional: No Weight Change, No Fever, No Chills, No Night Sweats, No Fatigue, No Malaise ENT/Mouth: No Hearing Changes, No Ear Pain, No Nasal Congestion, No Sinus Pain, No Hoarseness, No sore throat, No Rhinorrhea, No Swallowing Difficulty Eyes: No Eye Pain, No Swelling, No Redness, No Foreign Body, No Discharge, No Vision Changes Cardiovascular: No Chest Pain, No SOB, No PND, No Dyspnea on Exertion, No Orthopnea, No Claudication, No Edema, No Palpitations Respiratory: No Cough, No Sputum, No Wheezing, No Smoke Exposure, No Dyspnea Gastrointestinal: No Nausea, No Vomiting, No Diarrhea, No Constipation, No Pain, No Heartburn, No Anorexia, No Dysphagia, No Hematochezia, No Melena, No Flatulence, No Jaundice Genitourinary: No Dysmenorrhea, No DUB, No Dyspareunia, No Dysuria, No Urinary Frequency, No Hematuria, No Urinary Incontinence, No Urgency, No Flank Pain, No Urinary Flow Changes, No Hesitancy Musculoskeletal: No Arthralgias, No Myalgias, No Joint Swelling, No Joint Stiffness, No Back Pain, No Neck Pain, No Injury History Skin: No Skin Lesions, No Pruritis, No Hair Changes, No Breast/Skin Changes, No Nipple Discharge Neuro: No Weakness, No Numbness, No Paresthesias, No Loss of Consciousness, No Syncope, No Dizziness, No Headache, No Coordination Changes, No Recent Falls Psych: No Anxiety/Panic, No Depression, No Insomnia, No Personality Changes, No Delusions, No Rumination, No SI/HI/AH/VH, No Social Issues, No Memory Changes, No Violence/Abuse Hx., No Eating Concerns Heme/Lymph: No Bruising, No Bleeding, No Transfusions History, No Lymphadenopathy Endocrine: No Polyuria, No Polydipsia, No Temperature Intolerance Physical Exam could not be performed as it was a video visit Results & Data Vital Signs (Past 12 Hours) Vital Signs Temp Pulse Pulse Resp BP Pulse Ox O2 Del Method 10/02/24 08:00 Room Air 10/02/24 08:00 65 10/02/24 07:20 36.6 C 63 18 96/60 L 99 Room Air 10/02/24 02:11 36.2 C L 62 18 98/61 L 93 Room Air 10/01/24 23:29 67 10/01/24 22:51 37.0 C 62 20 100/63 96 Room Air Laboratory Results Chest X-Ray 10/02/24 08:53 XR chest 1V portable CLINICAL HISTORY: dialysis pt SOB, retained a lot of fluid overnight COMPARISON STUDY: 5 1225 FINDINGS: Stable mild cardiomegaly without pulmonary vascular congestion. No effusion, consolidation, or pneumothorax. IMPRESSION: No acute findings. ACT 112: Negative or not required by law. Electronically signed by: Sage Esquivel M.D. 10/02/2024 9:32 AM Diagnostic Findings 09/30/24 16:32 Aerobic Blood Culture - Preliminary Blood No growth in Aerobic bottle after 48 hours. Anaerobic Blood Culture - Preliminary No growth in Anaerobic bottle after 48 hours. 10/01/24 00:18 Urine Culture - Preliminary Urine,Clean Catch No growth - Less than 1,000 colonies/mL, Final report to follow. 09/30/24 16:55 Aerobic Blood Culture - Preliminary Blood No growth in Aerobic bottle after 24 hours. Anaerobic Blood Culture - Preliminary No growth in Anaerobic bottle after 24 hours. 10/02/24 10/02/24 10/02/24 16:04 15:59 11:39 WBC RBC Hgb 7.9 L Hct 24.0 L MCV MCH MCHC RDW Std Deviation RDW Coeff of Isai Plt Count MPV Immature Gran % (Auto) Neut % (Auto) Lymph % (Auto) Weld % (Auto) Eos % (Auto) Baso % (Auto) Neut # (Auto) Lymph # (Auto) Weld # (Auto) Eos # (Auto) Baso # (Auto) Immature Gran # (Auto) RBC Morphology Sodium Potassium Chloride Carbon Dioxide Anion Gap BUN Creatinine Est Cr Clr Drug Dosing eGFR BUN/Creatinine Ratio Glucose POC Glucose 122 H Calcium Troponin I High Sens Stl C. diff Tox B Gene Random Vancomycin Blood Type Blood Type Recheck O Negative Antibody Screen Crossmatch 10/02/24 10/02/24 10/02/24 11:31 11:00 07:05 WBC RBC Hgb Hct MCV MCH MCHC RDW Std Deviation RDW Coeff of Isai Plt Count MPV Immature Gran % (Auto) Neut % (Auto) Lymph % (Auto) Weld % (Auto) Eos % (Auto) Baso % (Auto) Neut # (Auto) Lymph # (Auto) Weld # (Auto) Eos # (Auto) Baso # (Auto) Immature Gran # (Auto) RBC Morphology Sodium Potassium Chloride Carbon Dioxide Anion Gap BUN Creatinine Est Cr Clr Drug Dosing eGFR BUN/Creatinine Ratio Glucose POC Glucose 169 H 152 H Calcium Troponin I High Sens 53.5 H* Stl C. diff Tox B Gene Random Vancomycin Blood Type O Negative Blood Type Recheck Antibody Screen NEGATIVE Crossmatch See Detail 10/02/24 10/02/24 10/02/24 06:10 00:37 00:30 WBC 5.14 RBC 2.53 L Hgb 7.6 L Hct 23.3 L MCV 92.1 MCH 30.0 MCHC 32.6 RDW Std Deviation 44.1 RDW Coeff of Isai 13.2 Plt Count 178 MPV 10.5 Immature Gran % (Auto) 0.6 Neut % (Auto) 72.7 Lymph % (Auto) 16.0 Weld % (Auto) 7.2 Eos % (Auto) 3.1 Baso % (Auto) 0.4 Neut # (Auto) 3.74 Lymph # (Auto) 0.82 L Weld # (Auto) 0.37 Eos # (Auto) 0.16 Baso # (Auto) 0.02 Immature Gran # (Auto) 0.03 RBC Morphology Unremarkable Sodium 133 L Potassium 3.6 Chloride 96 L Carbon Dioxide 27 Anion Gap 10 BUN 72 H Creatinine 10.77 H* D Est Cr Clr Drug Dosing 7.5 eGFR 4.59 BUN/Creatinine Ratio 6.7 L Glucose 148 H POC Glucose Calcium 8.1 L Troponin I High Sens 50.3 H* 48.9 H D Stl C. diff Tox B Gene Negative Cdiff Gene Random Vancomycin 26.6 H* Blood Type Blood Type Recheck Antibody Screen Crossmatch 10/01/24 20:10 WBC RBC Hgb Hct MCV MCH MCHC RDW Std Deviation RDW Coeff of Isai Plt Count MPV Immature Gran % (Auto) Neut % (Auto) Lymph % (Auto) Weld % (Auto) Eos % (Auto) Baso % (Auto) Neut # (Auto) Lymph # (Auto) Weld # (Auto) Eos # (Auto) Baso # (Auto) Immature Gran # (Auto) RBC Morphology Sodium Potassium Chloride Carbon Dioxide Anion Gap BUN Creatinine Est Cr Clr Drug Dosing eGFR BUN/Creatinine Ratio Glucose POC Glucose 151 H Calcium Troponin I High Sens Stl C. diff Tox B Gene Random Vancomycin Blood Type Blood Type Recheck Antibody Screen Crossmatch Medications Administered Home Medications Medication Instructions Recorded Confirmed Last Taken atorvastatin 80 mg tablet 80 mg PO DAILY 10/03/22 09/30/24 09/30/24 cholecalciferol (vitamin D3) 25 25 mcg PO DAILY 10/03/22 09/30/24 09/30/24 mcg (1,000 unit) capsule ezetimibe 10 mg tablet 10 mg PO QAM 10/03/22 09/30/24 09/30/24 semaglutide 2 mg/dose (8 mg/3 mL) 2 mg subcut WK 10/03/22 09/30/24 09/11/24 subcutaneous pen injector (Ozempic) insulin glargine 100 unit/mL (3 12 unit (0.12 mL) subcut QAM #15 mL 10/14/22 09/30/24 09/12/24 mL) subcutaneous pen (Lantus Solostar U-100 Insulin) ferric citrate 210 mg iron tablet 1,000 mg PO BID 09/12/24 09/30/24 09/30/24 (Auryxia) gentamicin 0.1 % topical cream 1 applic topical DIRECTED PRN 09/12/24 09/30/24 Unknown NEEDED iron sucrose 200 mg iron/10 mL 20 mg IV .[id number] 09/12/24 09/30/24 Unknown intravenous solution isosorbide mononitrate 120 mg 60 mg PO QAM 09/12/24 09/30/24 09/30/24 tablet,extended release 24 hr metoprolol succinate 25 mg 12.5 mg PO BID 09/12/24 09/30/24 09/30/24 tablet,extended release 24 hr nitroglycerin 0.4 mg sublingual 0.4 mg sublingual DIRECTED PRN 09/12/24 09/30/24 09/12/24 tablet Chest Pain 3 doses PRIOR TO ER pantoprazole 40 mg tablet,delayed 40 mg PO QAM 09/12/24 09/30/24 09/30/24 release ticagrelor 90 mg tablet (Brilinta) 90 mg PO BID 09/12/24 09/30/24 09/30/24 vitamin E 268 mg (400 unit) capsule 268 mg PO DAILY 09/12/24 09/30/24 09/30/24 amiodarone 200 mg tablet 200 mg PO BID #60 tabs 09/17/24 09/30/24 09/30/24 apixaban 5 mg tablet (Eliquis) 5 mg PO BID #60 tabs 09/17/24 09/30/24 09/30/24 aspirin 81 mg tablet,delayed 81 mg PO DAILY 8 days #0 tabs 09/17/24 09/30/24 09/30/24 release cephalexin 250 mg capsule 250 mg PO DAILY 7 days #7 caps 09/27/24 09/30/24 09/30/24 Active Medications Generic Name Dose Route Start Last Admin Trade Name Freq PRN Reason Stop Dose Admin Amiodarone HCl 200 mg 09/30/24 21:00 10/02/24 09:04 Amiodarone 200 Mg Tab PO 10/30/24 20:59 200 mg BID BRITTANIE Administration Apixaban 5 mg 09/30/24 21:00 10/02/24 09:03 Apixaban 5 Mg Tablet PO 10/30/24 20:59 5 mg BID BRITTANIE Administration Aspirin 81 mg 10/01/24 09:00 10/02/24 09:04 Aspirin 81 Mg Ectab PO 10/31/24 08:59 81 mg DAILY BRITTANIE Administration Atorvastatin Calcium 80 mg 10/01/24 09:00 10/02/24 09:03 Atorvastatin 40 Mg Tab PO 10/31/24 08:59 80 mg DAILY BRITTANIE Administration Calcium Acetate 2,001 mg 10/02/24 17:00 10/02/24 16:58 Calcium Acetate 667 Mg Cap/Tab PO 11/01/24 16:59 2,001 mg TIDM BRITTANIE Administration Ezetimibe 10 mg 10/01/24 09:00 10/02/24 09:03 Ezetimibe 10 Mg Tab PO 10/31/24 08:59 10 mg QAM BRITTANIE Administration Piperacillin Sod/Tazobactam Sod 4.5 gm in 100 mls @ 25 mls/hr 10/01/24 02:00 10/02/24 14:52 Zosyn IV 10/11/24 01:59 25 mls/hr Q12H BRITTANIE Administration Protocol Insulin Aspart 0 units 09/30/24 21:00 10/02/24 16:37 Insulin Aspart Per Unit Charge SC 10/30/24 20:59 Not Given ACHS [facility] Insulin Glargine 4 units 09/30/24 21:00 10/02/24 09:03 Lantus Per Unit Charge SQ 10/30/24 20:59 4 units BID BRITTANIE Administration Isosorbide Mononitrate 60 mg 10/01/24 09:00 10/02/24 09:03 Isosorbide Weld Extended Rel 60 Mg Tabcr PO 10/31/24 08:59 60 mg QAM BRITTANIE Administration Metoprolol Succinate 12.5 mg 09/30/24 21:00 10/02/24 09:04 Metoprolol Succ 25mg Ext Rel Tab PO 10/30/24 20:59 12.5 mg BID BRITTANIE Administration Miscellaneous 1 each 10/01/24 00:00 10/02/24 08:58 Ferric Citrate [Auryxia] 210 Mg Iron Tablet--Order Awaiting Action N/A 10/31/24 00:00 Not Given QS BRITTANIE Nystatin 500,000 units 09/30/24 21:00 10/02/24 16:59 Nystatin 500,000 Unit Tab PO 10/30/24 20:59 500,000 units QID BRITTANIE Administration Pantoprazole Sodium 40 mg 10/01/24 09:00 10/02/24 09:03 Pantoprazole 40 Mg Tab PO 10/31/24 08:59 40 mg QAM BRITTANIE Administration Ticagrelor 90 mg 09/30/24 21:00 10/02/24 09:04 Ticagrelor 90 Mg Tab PO 10/30/24 20:59 90 mg BID BRITTANIE Administration Vitamin D 25 mcg 10/01/24 09:00 10/02/24 09:03 Cholecalciferol 25 Mcg (1000 Units) Tab PO 10/31/24 08:59 25 mcg DAILY BRITTANIE Administration (4) Diabetes mellitus, type II Chronic kidney disease stage: on chronic dialysis Diabetes mellitus complication detail: with chronic kidney disease Diabetes mellitus complication status: with kidney complications 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
[2024-10-02 20:04] LABS: Hematocrit (blood only) 23.7 % (42.0-52.0); Hemoglobin 7.8 g/dl (14.0-18.0)
[2024-10-02 20:16] LABS: Appearance Peritoneal Fluid Clear; Color Peritoneal Fluid Pale Yellow; RBC Peritoneal Fluid Auto < 2000 /uL; WBC Peritoneal Fluid Auto 584 /ul (0-300)
--- NOTE | 2024-10-02 21:18 | Communication Note ---
Date of Service: October 02, 2024 Hemoglobin 7s following 1 unit PRBC transfusion. No overt bleed as per RN. AP Persistent anemia History CAD as per records Transfuse PRBC to maintain hemoglobin of at least 8 Continue current antiplatelet and NOAC Rx unless with overt bleeding
[2024-10-03 01:31] LABS: Hematocrit (blood only) 26.8 % (42.0-52.0); Hemoglobin 8.9 g/dl (14.0-18.0)
[2024-10-03 06:14] LABS: Hematocrit (blood only) 29.5 % (42.0-52.0); Hemoglobin 9.9 g/dl (14.0-18.0); Mean Corpuscular Hemoglobin 29.7 pg (25.0-34.0); Mean Corpuscular Hgb Conc 33.6 g/dL (32.0-36.0); Mean Corpuscular Volume 88.6 fL (80.0-100.0); Mean Platelet Volume 10.5 fL (9.4-12.4); Platelet Count 205 K/uL (130-400); RDW Standard Deviation 48.9 fL (36.4-46.3); Red Blood Count 3.33 M/uL (4.70-6.10); White Blood Count 5.18 K/ul (4.8-10.8)
[2024-10-03 06:36] LABS: BUN Creatinine Ratio 5.8 (10-20); Calcium 8.9 mg/dl (8.6-10.3); Creatinine Clr Calc Pharmacy 8.3 ml/min; Phosphorus 5.7 mg/dl (2.5-4.9); Potassium 3.5 mmol/L (3.5-5.1)
[2024-10-03 07:26] LABS: Lymphocytes, Fluid 5 %; Mono,Macrophage,Mesothelial 12 %; Neutrophils, Fluid 83 %
[2024-10-03 12:04] LABS: Adenovirus F 40/41 PCR Not Detected (NotDetected); Astrovirus PCR Not Detected (NotDetected); Campylobacter PCR Not Detected (NotDetected); Cryptosporidium PCR Not Detected (NotDetected); Cyclospora cayetanensis PCR Not Detected (NotDetected); Entamoeba histolytica PCR Not Detected (NotDetected); Enteroaggregative E.coli(EAEC) Not Detected (NotDetected); Enteropathogenic E.coli (EPEC) Not Detected (NotDetected); Enterotoxigenic E.coli (ETEC) Not Detected (NotDetected); Giardia lamblia PCR Not Detected (NotDetected); Norovirus GI/GII PCR Not Detected (NotDetected); Plesiomonas shigelloides PCR Not Detected (NotDetected); Rotavirus A PCR Not Detected (NotDetected); Salmonella PCR Not Detected (NotDetected); Sapovirus PCR Not Detected (NotDetected); Shiga-like Toxin E.coli (STEC) Not Detected (NotDetected); Shigella/Enteroinvasive E.coli Not Detected (NotDetected); Vibrio cholerae PCR Not Detected (NotDetected); Vibrio species PCR Not Detected (NotDetected); Yersinia enterocolitica PCR Not Detected (NotDetected)
--- NOTE | 2024-10-03 14:24 | Cardiology Progress Note ---
Date of Service October 03, 2024 Assessment & Plan (1) Chest pain: (2) Volume overload: (3) Myocardial infarction less than 4 weeks ago: (4) Paroxysmal atrial fibrillation: (5) Peritonitis: (6) Anemia: Plan 74-year-old male presenting with acute peritonitis related to peritoneal dialysis developed substernal chest discomfort 10/02/24 relieved with IV morphine. No evidence of recurrent acute coronary syndromes. Suspect symptoms related to volume overload with underlying anemia in setting of chronic complex coronary disease. Review of bedside echocardiogram demonstrates no new regional wall motion abnormalities with stable, moderate left ventricular systolic dysfunction. Hemoglobin improved status post 2 units of packed red blood cells. Recommendations: * Continue 'triple' antiplatelet/anticoagulant therapy with low-dose aspirin, Brilinta, and apixaban. * Apixaban may be held for 48 hours in anticipation of dialysis catheter placement. \ * Dual antiplatelet therapy must be continued uninterrupted at this time due to recent myocardial infarction secondary to subacute Lcx stent thrombosis. * Maintain serum hemoglobin greater than 8.0 g/dL * Volume management as per nephrology with peritoneal dialysis. * Titration of antianginal therapy limited by borderline resting hypotension * Continue metoprolol and isosorbide monohydrate as ordered * Continue amiodarone 200 mg twice daily * Reduce amiodarone to 200 mg once daily at discharge [place]ah [place] DO, [facility] Admission and Anticipated Discharge Date Admission Date: September 30, 2024 Subjective 74-year-old male seen examined the bedside. No recurrent chest discomfort over the past 24 hours. Telemetry demonstrates sinus rhythm. Family present at bedside. Patient offers no new concerns/complaints today. Transfuse 2 units of packed red blood cell 10/02/2024. Review of Systems Review of Systems: All systems reviewed & are unremarkable except as noted in Subjective Physical Exam Constitutional: well nourished; no acute distress Respiratory: no respiratory distress, no labored breathing and no retractions Auscultation: + diminished lung sounds (Bases bilateral) Cardiovascular: Rate/Rhythm: regular rate and regular rhythm Heart Sounds: normal S1, normal S2 and + murmur (2/6 systolic ejection murmur) Vessels: no JVD and no carotid bruit Extremities: no edema Gastrointestinal (Abdomen): Inspection/Auscultation: abdomen not distended Percussion/Palpation: abdomen nontender, no guarding and abdomen not rigid Neurologic: moves all extremities; no focal motor deficits Results & Data Vital Signs (Past 12 Hours) Vital Signs Temp Pulse Pulse Resp BP Pulse Ox O2 Del Method 10/03/24 11:40 36.6 C 65 18 101/64 96 Room Air 10/03/24 09:00 64 10/03/24 09:00 Room Air 10/03/24 08:48 36.7 C 65 18 10/03/24 07:46 36.8 C 63 18 108/67 95 Oxymask 10/03/24 03:02 36.7 C 63 20 93/61 L 95 Room Air O2 Flow Rate 10/03/24 11:40 10/03/24 09:00 10/03/24 09:00 10/03/24 08:48 10/03/24 07:46 4 10/03/24 03:02 Laboratory Results Cardiac Enzymes 10/02/24 Range/Units 17:49 Troponin I High Sens 47.1 H (0-20) pg/ml CBC 10/02/24 10/02/24 10/03/24 Range/Units 15:59 19:51 01:18 WBC (4.8-10.8) K/ul RBC (4.70-6.10) M/uL Hgb 7.9 L 7.8 L 8.9 L (14.0-18.0) g/dl Hct 24.0 L 23.7 L 26.8 L (42.0-52.0) % Plt Count (130-400) K/uL 10/03/24 Range/Units 05:20 WBC 5.18 (4.8-10.8) K/ul RBC 3.33 L (4.70-6.10) M/uL Hgb 9.9 L (14.0-18.0) g/dl Hct 29.5 L (42.0-52.0) % Plt Count 205 (130-400) K/uL Comprehensive Metabolic Panel 10/03/24 Range/Units 05:20 Sodium 133 L (136-145) mmol/L Potassium 3.5 (3.5-5.1) mmol/L Chloride 93 L (98-107) mmol/L Carbon Dioxide 28 (21-32) mmol/L BUN 58 H (6-23) mg/dl Creatinine 9.97 H* D (0.6-1.4) mg/dl Glucose 160 H (70-99(Fasting)) mg/dl Calcium 8.9 (8.6-10.3) mg/dl Intake and Output 10/02/24 10/03/24 10/03/24 22:59 06:59 14:59 Intake Total 2312.0455 / 3742.0455 510 / 3742.0455 900 / 900 Output Total -279 / -279 Balance 2312.0455 / 4388.0455 510 / 4388.0455 1179 / 1179 Intake: IV 2112.0455 / 2212.0455 100 / 2212.0455 ceFAZolin 1,500 mg cefTAZidime / 1,500 mg In Peritoneal 1.5% Dialysis 2,000 ml @ As Directed IR TODAY@0715 [facility] Rx#:[id number] Piperacillin/Tazobactam 4.5 gm 100 / 200 100 / 200 In 100 ml @ 25 mls/hr IV Q12H [facility] Rx#:[id number] Oral 200 / 950 100 / 950 900 / 900 Intake (Blood Product) Amt 0 / 580 310 / 580 Packed Cells, Leukoreduced 0 / 310 310 / 310 Unit [id number] Output: Peritoneal Dialysis -283 / -283 Ultrafiltration Amount # Bowel Movements 4 / 4 Other: # Unmeasured Voids 2 2 2 Weight 106.6 kg 112.2 kg 109.8 kg Weight Measurement Method Standing Scale Standing Scale Patient Weight 10/04/24 06:59 Weight 109.8 kg (1) Chest pain Chest pain type: unspecified Qualified Code(s): R07.9 - Chest pain, unspecified (2) Volume overload Hypervolemia type: other Qualified Code(s): E87.79 - Other fluid overload
--- NOTE | 2024-10-03 14:35 | Hospitalist Progress Note ---
Date of Service October 03, 2024 Assessment & Plan (1) Peritonitis: (2) Peritoneal dialysis status: (3) End stage renal disease: (4) Diabetes mellitus, type II: (5) HTN (hypertension): (6) CAD (coronary artery disease), [place] coronary artery: (7) History of atrial fibrillation: (8) Hematuria: Plan 74 y/o male with ESRD on PD, recent admission for afib with RVR, recent NSTEMI due to in-stent thrombosis, CAD, chronic HFrEF with combined systolic and diastolic dysfunction, insulin-requiring DM2, hyperaldosteronism, adrenal adenoma s/p resection, JACOB not on CPAP, prior right lacunar infarct 2022, 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 He is being managed for the following: Peritonitis in setting of Peritoneal dialysis catheter Sepsis POA Possible mild sigmoid diverticulitis Patient presented to the hospital with low-grade fever, abdominal pain. Was initially being managed as OP for peritonitis iso PD catheter. 09/30 OP peritoneal culture: gram neg bacilli and gram positive bacilli. f/u final c/s - not yet out as of 10/03 2:40 pm. admitting blood culture 09/30: NG 24H. 10/01 Urine Cx neg. Nephro on board, managing PD associated peritonitis - was started on IP vanc and ceftazidime, then IP Ceftazidime and cefazolin on 10/02. Started on Zosyn 10/01 for possible sigmoid diverticulitis; continue. Follow-up on blood culture Infectious disease evaled, ID cetazidime x 2-3 weeks and iv zosyn for 5-7 days. Pt reports improvement in N, V. Maintain clears diet given gi bleed. CAD s/p recent NSTEMI, underwent cath with PCI and new overlapping ALYSSA in the proximal circumflex had episode of chest pain w/ dyspnea overnight 10/01-10/02 ---> trop trends flat around 50. ECHO and EKG were unchanged. Home meds: aspirin, Brilinta, Eliquis; cardiac cath was on 09/13; plan to stop aspirin after 30 days; continue w/ DAPT for now, eliquis on hold ?? need for PD catheter removal/TDC cath placement?? Continue on Lipitor cardio on board, appreciate recs. GI bleed, ? UGI bleed: has dark stools since yesterday per pt, fobt +ve, will put in PPI IV, c/w liq diet for now, will put in GI consult, updated via TT. Monitor HnH, and transfuse for Hb < 8 or for symptomatic anemia. get iron profile/b12/folate level. 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 Hemoglobin down trended from 10.1-7.9 ---7.6; blood transfusion consent obtained 10/02, will transfuse 1 unit, will repeat HnH at 8pm Transfuse PRBC for hemoglobin less than 8 or for symptomatic anemia. Patient reports improvement in his hematuria. Will obtain urology consultation if hematuria recurs History of atrial fibrillation - Started on amiodarone during last admission - per cardio cw 200 mg bid for now and 200 mg daily at DC. - EKG on admission - pt currently in sinus rhythm - Continue chronic anticoagulation #Insulin-requiring DM2 - Continue basal insulin with sliding scale coverage - Diabetic renal heart-healthy diet - BSG ACHS Ho adrenal adenoma s/p resection: f/u w/ OP providers as prior for ongoing monitoring and management Code status: DNR/DNI (no CPR, intubation) but would be okay with pressors or similar measures DVT prophylaxis: on Eliquis Pt's was updated in person at waiting room today am. Please note the above document was generated using voice recognition software. It may contain grammatical, syntax or spelling errors. Any formal questions or concerns about the content, text or information contained within the body of this dictation should be directly addressed to the provider for clarification Admission and Anticipated Discharge Date Admission Date: September 30, 2024 Subjective Patient was seen and examined at bedside. Patient was sitting up, on room air, NAD. Patient denies any further chest pain. Patient reports no new events since yesterday. Patient reports feeling better after second blood transfusion last evening, received 2 units PRBC yesterday. Patient reporting having loose stools yesterday and today, black in color. Will send FOBT and stool PCR and C. difficile. Patient denies any abdominal pain or fever. Patient would like to advance diet, maintain clears given GI bleed. Physical Exam Physical Exam: Constitutional: Alert oriented x 3; not in distress. Respiratory: normal respiratory effort, lungs clear to auscultation, no wheeze, rales, rhonchi. Normal insp/exp effort, no accessory muscle use Cardiovascular: RRR, no murmur, no edema Vessels: no JVD or carotid bruit Chest: normal inspection of chest, + murmur. Abdomen: Tenderness present all over the abdomen. PD catheter noted, no s/s infection at port of entry. Musculoskeletal: no cyanosis or clubbing, extremities motor strength 5/5 Skin: no rashes, warm and dry normal turgor Neurologic: PERRL, EOMI, accommodation nl, no face palsy, no dysarthria CN's II- XI intact bilaterally and moves all extremities Psychiatric: A+Ox3, euthymic affect Results & Data Results & Data Vital Signs (Past 12 Hours) Vital Signs Temp Pulse Pulse Resp BP Pulse Ox O2 Del Method 10/03/24 11:40 36.6 C 65 18 101/64 96 Room Air 10/03/24 09:00 64 10/03/24 09:00 Room Air 10/03/24 08:48 36.7 C 65 18 10/03/24 07:46 36.8 C 63 18 108/67 95 Oxymask 10/03/24 03:02 36.7 C 63 20 93/61 L 95 Room Air O2 Flow Rate 10/03/24 11:40 10/03/24 09:00 10/03/24 09:00 10/03/24 08:48 10/03/24 07:46 4 10/03/24 03:02 (4) Diabetes mellitus, type II Chronic kidney disease stage: on chronic dialysis Diabetes mellitus complication detail: with chronic kidney disease Diabetes mellitus complication status: with kidney complications 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 transplanted heart: [place] heart Qualified Code(s): I25.110 - Atherosclerotic heart disease of [place] coronary artery with unstable angina pectoris (8) Hematuria Hematuria type: gross Qualified Code(s): R31.0 - Gross hematuria
--- NOTE | 2024-10-03 14:56 | Nephrology Progress Note ---
Date of Service October 03, 2024 Assessment & Plan (1) Peritonitis: Plan: complex multiorganism PD peritonitis in setting of diverticulitis; concern for microperforation/translocated bacteria presented w/ cloudy effluent, 2505 cell count 75% PMN, GS negative; cx w/ prelim GNR AND GPR as of 10/03 PM. f/u study ([facility] lab) 10/02, 584 cells clear pale yellow fluid 83% PMN, amylase <10. 10/02 fungal and repeat PD fluid cxs pending. symptoms emerged through course of day 09/30 and treatment pivoted OP > IP. his dialysate specimens are processing with [employer] d/t pivot. concern for secondary peritonitis such as d/t diverticulitis given polymicrobial PD peritonitis; also given unusual microbe of G+ rods, will get fungal cxs though no organisms seen on GS -continue nystatin to prevent fungal peritonitis until abtx complete >>at this time per ID recs with IV abtx only, pip/tazo x 5-7 days and then 2-3 wks abtx thereafter IP but now with PD catheter removal will need alternate plan. Pt on triple therapy for heart >> [place] [facility] [place] (surgeon here not available until 10/08 earliest) Care coordinated w/ Dr Hercules by TText and Dr Landrum [place] [place] phone repeatedly re volume status, complex peritonitis tx concerns/cx results, need for catheter removal, anemia transfusion threshold plans; we are in agreement. 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 TARGET WT 113 kg 09/30 > -627 UF (6 hrs of 2L 1.5% IP vanc/ceftaz followed by 6 hr dwell of 2.5L of 1.5% 10/01 > standing wt 106.6 kg dry abd -500 mL gain (6h of 2L 1.5% vanc/ceftaz) -796 mL gain (3 x 3L over 15 hrs all 1.5%) 10/02> standing wt 109.8 dry abd CXR clear -had 2 units pRBC --1L gain (6h of 2L 2.5% ceftaz/cefaz) -283mL gain (3L x 2.5% exchs x 3 and 1.5% exch x 1 and 2.5hr dwell times) >CXR in AM >daily standing wts by DIALYSIS nurse w/ dry abdomen to continue pls will hold dialysis tonight since he may be transferred; if still here in AM will need to at least start PD and disconnect if/when transport arrives. (had planned 4 x 3L exchs all 2.5% to dwell 2.5hrs; put heparin 1000 units heparin/L of dialysate (1:1000 concentration)) (3) Chronic heart failure with reduced ejection fraction (HFrEF, <= 40%) and combined systolic and diastolic dysfunction: Plan: complex coronary/vascular dz s/p LAD stent 12/2023 w/ in stent stenosis 06/2023, admitted here NSTEMI/AF w/ RVR last month s/p circ stent; September 2022 small R lacunar stroke w/ mild residual L hand/leg weakness >monitor anemia; would not let hgb drift much below 10 per cardiology -- hgb 9.9 today (4) Hyperphosphatemia: Plan: >> ordered his latest OP regimen > phosLo 07/20 Admission and Anticipated Discharge Date Admission Date: September 30, 2024 Subjective frequent BM w/ stool studies negative and now heme +; breathing a bit better but still exertional dyspnea; frequent BMP 3+; abd pain a bit improved but still present. discussed w/ vascular > no surgical coverage to remove PD cath before 10/08 Review of Systems 2 Review of Systems: All systems reviewed & are unremarkable except as noted in Subjective Physical Exam 2 Constitutional: well developed, well nourished and comfortable ( But clearly tired); no acute distress Eyes: EOM intact bilaterally ENMT: Mouth: + dry oral mucous membranes Neck: no nuchal rigidity Respiratory: normal respiratory effort Auscultation: + diminished lung sounds Cardiovascular: Rate/Rhythm: regular rate and regular rhythm Heart Sounds: + murmur Extremities: no edema Gastrointestinal (Abdomen): Inspection/Auscultation: normal bowel sounds P ercussion/Palpation: + abdomen tender (deb LLQ), + guarding (slight) and abdomen soft Musculoskeletal: Extremities: strength 5/5 throughout Skin: no rashes, warm and dry Neurologic: block, fluent speech, no tremor Results & Data Vital Signs (Past 12 Hours) Vital Signs Temp Pulse Pulse Resp BP Pulse Ox O2 Del Method 10/03/24 11:40 36.6 C 65 18 101/64 96 Room Air 10/03/24 09:00 64 10/03/24 09:00 Room Air 10/03/24 08:48 36.7 C 65 18 10/03/24 07:46 36.8 C 63 18 108/67 95 Oxymask 10/03/24 03:02 36.7 C 63 20 93/61 L 95 Room Air O2 Flow Rate 10/03/24 11:40 10/03/24 09:00 10/03/24 09:00 10/03/24 08:48 10/03/24 07:46 4 10/03/24 03:02 Laboratory Results 10/03/24 05:20 10/03/24 05:20 PD fluid studies adn stool studies reviewed
[2024-10-03] MEDS: PANTOprazole 40 MG/10 ML SYR IV ONE (15:02)
[2024-10-03 16:39] LABS: Hematocrit (blood only) 26.9 % (42.0-52.0)
[2024-10-03] MEDS: THIAMINE HCL 200 MG in SODIUM CHLORIDE 0.9% 50 ML IV STA (17:32)
[2024-10-03] MEDS: FOLIC ACID 1 MG in SYRINGE 9.8 ML IV STA (17:32)
[2024-10-03] MEDS: CEROVITE ADV FORMULA TAB PO SCH (17:32)
--- NOTE | 2024-10-03 19:12 | Discharge Summary ---
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 Of note, pt was most recently admitted 09/12-09/17/24 after he presented to the ED with chest pain and found to be in atrial fibrillation with RVR (159 bpm), had nonspecific ST segment elevation in inferior lead, T wave abnormality in lateral lead. Started on esmolol drip then changed to cardizem drip and metoprolol. Troponin trended up from 275.9 to >07225 and pt developed recurrent chest pain on 09/13 so taken for cardiac cath. Circumflex found to have 95% acute proximal in-stent thrombosis, underwent successful PCI of proximal circumflex with new overlapping ALYSSA placement. Was recommended to be on aspirin, Brilinta and Eliquis x 30 days then can d/c aspirin but remain on the Brilinta and Eliquis. Started on amiodarone 200 mg TID after pt spontaneous converted to sinus rhythm during admission. Since discharge, pt noted ongoing issues with low BPs. On 09/27, pt returned to the ED due to hyperkalemia on outpatient labs and some mild hematuria. Started on cephalexin for possible UTI and discharged to home. Has continued to feel poorly at home since this ED visit - no significant improvement on the cephalexin. Yesterday, he was very fatigued and weak, continued to have low BPs as low as 65/40 mm Hg but varied throughout the day. He tried increasing fluid intake, caffeine and salt to help with BP but still felt poorly. He also noted hematuria with clots yesterday but reports this is a bit better today. This morning, his noted that his PD fluid was cloudy, which is new for him. He went to [facility] for further evaluation and had fluid drawn off for additional testing for possible peritonitis. He was noted to have a temp of 100F earlier today. Sent to the ED due to concern for infection - prelim report concerning for peritonitis but results still pending. Pt notes that he started having abdominal pain on the way to the ED today, had some mild discomfort yesterday but currently pain is worse than prior. Small amount of loose stool but no bloody BM. Denies chest pain since discharge. No cough, dyspnea. Admission Exam Per Admitting Provider General: Not in distress Eyes: PERRL, conjunctivae normal, not pale, anicteric sclerae, EOM intact bilaterally ENMT: External ear and nose normal, oropharynx normal Respiratory: Normal respiratory effort, no respiratory distress, lungs clear to auscultation, no crackles and no wheezes Cardiovascular: RRR S1 S2 Gastrointestinal (Abdomen): Soft, +tenderness especially on right abdomen, no guarding, PD catheter in situ Musculoskeletal: No pedal edema Neurologic: Alert and oriented x 3, No focal weakness, sensation grossly intact Psychiatric: Euthymic affect Principal Diagnosis PD catheter peritonitis Discharge Exam Constitutional: Alert oriented x 3; not in distress. Respiratory: normal respiratory effort, lungs clear to auscultation, no wheeze, rales, rhonchi. Normal insp/exp effort, no accessory muscle use Cardiovascular: RRR, no murmur, no edema Vessels: no JVD or carotid bruit Chest: normal inspection of chest, + murmur. Abdomen: Tenderness present all over the abdomen. PD catheter noted, no s/s infection at port of entry. Musculoskeletal: no cyanosis or clubbing, extremities motor strength 5/5 Skin: no rashes, warm and dry normal turgor Neurologic: PERRL, EOMI, accommodation nl, no face palsy, no dysarthria CN's II- XI intact bilaterally and moves all extremities Psychiatric: A+Ox3, euthymic affect Discharge Data Allergies Allergy/AdvReac Type Severity Reaction Status Date / Time Sulfa (Sulfonamide Allergy Intermediate RASH/VOMITI Verified 09/12/24 18:14 Antibiotics) NG egg yolk AdvReac Intermediate Diarrhea Verified 09/12/24 18:14 UNKNOWN PHOSPHATE BINDER AdvReac Severe SEVERE Uncoded 09/12/24 18:14 DIARRHEA Consultations 09/30/24 16:51 ED Decision to Admit Stat 09/30/24 19:12 Consult Nephrology Routine 10/01/24 11:16 Consult Infectious Diseases Routine 10/01/24 11:53 Consult Urology Routine 10/02/24 06:41 Consult Cardiology Routine 10/02/24 15:21 Consult Vascular Surgery Routine 10/03/24 14:45 Consult Gastroenterology Routine Ordered Studies 09/30/24 17:45 CT Abd and Pelvis [CT abd pelvis wo con] Stat Hospital Course (1) Peritonitis: (2) Peritoneal dialysis status: (3) End stage renal disease: (4) Diabetes mellitus, type II: (5) HTN (hypertension): (6) CAD (coronary artery disease), [place] coronary artery: (7) History of atrial fibrillation: (8) Hematuria: Plan 74 y/o male with ESRD on PD, recent admission for afib with RVR, recent NSTEMI due to in-stent thrombosis, CAD, chronic HFrEF with combined systolic and diasto lic dysfunction, insulin-requiring DM2, hyperaldosteronism, adrenal adenoma s/p resection, JACOB not on CPAP, prior right lacunar infarct 2022, 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 He was managed for the following: Peritonitis in setting of Peritoneal dialysis catheter Sepsis POA Possible mild sigmoid diverticulitis Patient presented to the hospital with low-grade fever, abdominal pain. Was initially being managed as OP for peritonitis iso PD catheter. 09/30 OP peritoneal culture: gram neg bacilli and gram positive bacilli. f/u final c/s - not yet out as of 10/03 2:40 pm. admitting blood culture 09/30: NG 24H. 10/01 Urine Cx neg. Nephro on board, managing PD associated peritonitis - was started on IP vanc and ceftazidime, then IP Ceftazidime and cefazolin on 10/02. Started on Zosyn 10/01 for possible sigmoid diverticulitis; continue. Follow-up on blood culture Infectious disease evaled, ID cetazidime x 2-3 weeks and iv zosyn for 5-7 days. Pt reports improvement in N, V. Maintain clears diet given gi bleed. CAD s/p recent NSTEMI, underwent cath with PCI and new overlapping ALYSSA in the proximal circumflex had episode of chest pain w/ dyspnea overnight 10/01-10/02 ---> trop trends flat around 50. ECHO and EKG were unchanged. Home meds: aspirin, Brilinta, Eliquis; cardiac cath was on 09/13; plan to stop aspirin after 30 days; continue w/ DAPT for now, eliquis on hold ?? need for PD catheter removal/TDC cath placement?? Continue on Lipitor cardio on board, appreciate recs. GI bleed, ? UGI bleed: has dark stools since yesterday per pt, fobt +ve, will put in PPI IV, c/w liq diet for now, will put in GI consult, updated via TT. Monitor HnH, and transfuse for Hb < 8 or for symptomatic anemia. get iron profile/b12/folate level. 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 Hemoglobin down trended from 10.1-7.9 ---7.6; blood transfusion consent obtained 10/02, will transfuse 1 unit, will repeat HnH at 8pm Transfuse PRBC for hemoglobin less than 8 or for symptomatic anemia. Patient reports improvement in his hematuria. Will obtain urology consultation if hematuria recurs History of atrial fibrillation - Started on amiodarone during last admission - per cardio cw 200 mg bid for now and 200 mg daily at DC. - EKG on admission - pt currently in sinus rhythm - Continue chronic anticoagulation #Insulin-requiring DM2 - Continue basal insulin with sliding scale coverage - Diabetic renal heart-healthy diet - BSG ACHS Ho adrenal adenoma s/p resection: f/u w/ OP providers as prior for ongoing monitoring and management Code status: DNR/DNI (no CPR, intubation) but would be okay with pressors or similar measures DVT prophylaxis: on Spoke with nephrology, plan for transfer to the [facility], we do not have vascular surgery available until Monday, spoke with transfer line/updated on pt. and I been notified that patient already got bed and his discharge order placed by me. Please note the above document was generated using voice recognition software. It may contain grammatical, syntax or spelling errors. Any formal questions or concerns about the content, text or information contained within the body of this dictation should be directly addressed to the provider for clarification Home Health Attestation I certify that this patient is under my care and that I, or a physicians assistant broker working with me, had a face to-face encounter that meets the home health [id number] encounter requirements with this patient. The encounter with the patient was in whole, or in part, for the following medical condition, which is the primary reason for home health care (list medical condition): Peritonitis I certify that, based on my findings, the following services are medically necessary home health services: My clinical findings support the need for the above services because: OT Assess ADL Status and Restore Function w ADLs PT Assessment for Endurance / Balance / Strength PT Eval for Safety and Mobility PT Eval for Safety, Gait Training, Assistive Devices PT Gait and Balance Training, Strengthening and Safety Skilled Nsg Assessment Further, I certify that my clinical findings support that this patient is homebound (i.e. absences from home require considerable and taxing effort and are for medical reasons or moravian services or infrequently or of short duration when for other reasons) because: Supportive Aid - Walker Certification for Home Health Services: Based on the above findings, I certify that this patient is confined to the home and needs intermittent longterm care, physical therapy and/or speech therapy or continues to need occupational therapy. The patient is under my care, and I have initiated the establishment of the plan of care. This patient will be followed by a physician who will periodically review the plan of care. Total Time Total Time Spent Total Time Spent (In Minutes): 65 Discharge Plan Discharge Items Patient Disposition: Transfer Acute Care Hospital Reason For Visit: HYPOTENSION, PERITONITIS Discharge Diagnosis: Peritoneal dialysis associated peritonitis ESRD on peritoneal dialysis GI bleed Recent NSTEMI, supposed to be on triple therapy/Eliquis on hold since 5/15 AM Condition on Discharge: Fair Activity: As commented below Activity Comment: Per tertiary care center recommendation. Non-emergency contact: Primary Care Provider Call non-emergency contact if: you have any medication questions and your symptoms worsen Follow-up/Referrals: Agatha Beach, [Primary Care Provider] - Diet: Nothing by Mouth Addtl Attending Provider Instructions: You are being transferred to [facility] for complicated peritoneal dialysis related peritonitis and need for possible tunneled dialysis catheter. Your current inpatient medications are copied and pasted below, your prior to arrival home medications are continued as it is in the discharge med rec for the sake of comparison against current inpatient medications at tertiary center. Current Inpatient Medications Acetaminophen (Acetaminophen 325 Mg Tab) 650 mg PO Q4H PRN PRN Reason: Pain or Fever Stop: 10/30/24 19:11 Amiodarone HCl (Amiodarone 200 Mg Tab) 200 mg PO BID BRITTANIE Stop: 10/30/24 20:59 Last Admin: 10/03/24 10:54 Dose: 200 mg Apixaban (Apixaban 5 Mg Tablet) 5 mg PO BID BRITTANIE Stop: 10/30/24 20:59 Last Admin: 10/02/24 20:47 Dose: 5 mg Aspirin (Aspirin 81 Mg Ectab) 81 mg PO DAILY BRITTANIE Stop: 10/31/24 08:59 Last Admin: 10/03/24 10:55 Dose: 81 mg Atorvastatin Calcium (Atorvastatin 40 Mg Tab) 80 mg PO DAILY BRITTANIE Stop: 10/31/24 08:59 Last Admin: 10/03/24 10:55 Dose: 80 mg Calcium Acetate (Calcium Acetate 667 Mg Cap/Tab) 2,001 mg PO TIDM BRITTANIE Stop: 11/01/24 16:59 Last Admin: 10/03/24 17:32 Dose: 2,001 mg Calcium Acetate (Calcium Acetate 667 Mg Cap/Tab) 667 mg PO BID PRN PRN Reason: Snack Stop: 11/01/24 15:01 Dextrose (Dextrose 50% 50 Ml Syringe) 25 - 50 ml IV UD PRN; Protocol PRN Reason: Hypoglycemia Protocol Stop: 10/30/24 19:11 Ezetimibe (Ezetimibe 10 Mg Tab) 10 mg PO QAM BRITTANIE Stop: 10/31/24 08:59 Last Admin: 10/03/24 10:55 Dose: 10 mg Glucagon (Glucagon For Inj 1 Mg Vial) 1 mg SQ UD PRN; Protocol PRN Reason: Hypoglycemia Protocol Stop: 10/30/24 19:11 Glucose (Glucose 40% Gel 15 Gm Tube) 15 - 30 gm PO UD PRN; Protocol PRN Reason: Hypoglycemia Protocol Stop: 10/30/24 19:11 Glucose (Glucose 10 Tab/Tube) 4 - 8 tab PO UD PRN; Protocol PRN Reason: Hypoglycemia Protocol Stop: 10/30/24 19:11 Hydromorphone HCl (Hydromorphone Inj 0.5 Mg/0.5 Ml Syr) 0.25 mg IV Q6H PRN PRN Reason: Pain Stop: 10/15/24 11:52 Piperacillin Sod/Tazobactam Sod (Zosyn) 4.5 gm in 100 mls @ 25 mls/hr IV Q12H [facility]; Protocol Stop: 10/11/24 01:59 Last Infusion: 10/03/24 18:48 Dose: Infused Pantoprazole Sodium (Protonix) 40 mg in 10 mls @ 5 mls/min IV BID [facility] Stop: 11/02/24 20:59 Folic Acid 1 mg/ Syringe 10 mls @ 5 mls/min IV QAM [facility] Stop: 11/03/24 08:59 Insulin Aspart (Insulin Aspart Per Unit Charge) 0 units SC ACHS [facility] Stop: 10/30/24 20:59 Last Admin: 10/03/24 16:56 Dose: Not Given Insulin Glargine (Lantus Per Unit Charge) 4 units SQ BID [facility] Stop: 10/30/24 20:59 Last Admin: 10/03/24 08:29 Dose: 4 units Isosorbide Mononitrate (Isosorbide [place] Extended Rel 60 Mg Tabcr) 60 mg PO QAM [facility] Stop: 10/31/24 08:59 Last Admin: 10/03/24 10:55 Dose: 60 mg Metoprolol Succinate (Metoprolol Succ 25mg Ext Rel Tab) 12.5 mg PO BID [facility] Stop: 10/30/24 20:59 Last Admin: 10/03/24 11:01 Dose: Not Given Miscellaneous (Ferric Citrate [Auryxia] 210 Mg Iron Tablet--Order Awaiting Action) 1 each N/A QS [facility] Stop: 10/31/24 00:00 Last Admin: 10/02/24 08:58 Dose: Not Given Miscellaneous (Carbohydrates For Hypoglycemia ) 15 - 30 gm PO UD PRN PRN Reason: Hypoglycemia Protocol Stop: 10/30/24 19:11 Multivitamins/Minerals (Cerovite Adv Formula Tab) 1 tab PO QAM [facility] Stop: 11/02/24 15:14 Last Admin: 10/03/24 17:32 Dose: 1 tab Nystatin (Nystatin 500,000 Unit Tab) 500,000 units PO QID [facility] Stop: 10/30/24 20:59 Last Admin: 10/03/24 17:32 Dose: 500,000 units Ondansetron HCl (Ondansetron Inj 2 Mg/Ml 2 Ml Vial) 4 mg IV Q8H PRN PRN Reason: Nausea And Vomiting Stop: 10/31/24 16:39 Pantoprazole Sodium (Pantoprazole 40 Mg Tab) 40 mg PO QAM [facility] Stop: 10/31/24 08:59 Last Admin: 10/03/24 10:56 Dose: 40 mg Thiamine HCl (Thiamine Hcl 100 Mg Tab) 100 mg PO QAM [facility] Stop: 11/03/24 08:59 Ticagrelor (Ticagrelor 90 Mg Tab) 90 mg PO BID [facility] Stop: 10/30/24 20:59 Last Admin: 10/03/24 10:56 Dose: 90 mg Vitamin D (Cholecalciferol 25 Mcg (1000 Units) Tab) 25 mcg PO DAILY [facility] Stop: 10/31/24 08:59 Last Admin: 10/03/24 10:55 Dose: 25 mcg Pending Studies at Discharge: Yes Stand-Alone Forms: [facility] Skilled Items Patient informed of condition?: Yes DNR: Yes Discharge Level of Care: Other Communicable Disease: No Discharge Prognosis: Other Lines: Peripheral IV Urinary Catheter: No Medications and DC Order Prescriptions: Continued atorvastatin 80 mg tablet 80 mg PO DAILY ezetimibe 10 mg tablet 10 mg PO QAM Ozempic 2 mg/dose (8 mg/3 mL) Pen Injector 2 mg SUBCUT WK Rx Instructions: MONDAY cholecalciferol (vitamin D3) 25 mcg (1,000 unit) Capsule 25 mcg PO DAILY insulin glargine [Lantus Solostar U-100 Insulin] 100 unit/mL (3 mL) insulin pen 12 unit subcut QAM Qty: 15 0RF isosorbide mononitrate 120 mg tablet extended release 24 hr 60 mg PO QAM pantoprazole 40 mg tablet,delayed release (DR/EC) 40 mg PO QAM nitroglycerin 0.4 mg tablet, sublingual 0.4 mg sublingual DIRECTED PRN (Reason: Chest Pain) gentamicin 0.1 % cream 1 applic TOPICAL DIRECTED PRN (Reason: NEEDED) metoprolol succinate 25 mg tablet extended release 24 hr 12.5 mg PO BID vitamin E 268 mg (400 unit) Capsule 268 mg PO DAILY iron sucrose 200 mg iron/10 mL Solution 20 mg IV .[id number] Rx Instructions: GIVEN AT DIALYSIS administer over 30 mins ticagrelor [Brilinta] 90 mg tablet 90 mg PO BID ferric citrate [Auryxia] 210 mg iron Tablet 1,000 mg PO BID Rx Instructions: BREAKFAST & LUNCH. administer with a meal amiodarone 200 mg Tablet 200 mg PO BID Qty: 60 0RF Eliquis 5 mg Tablet 5 mg PO BID Qty: 60 0RF aspirin 81 mg Tablet,Delayed Release (Dr/Ec) 81 mg PO DAILY 8 Days Qty: 0 0RF Rx Instructions: Continue for 27 days and then stop taking it. cephalexin 250 mg capsule 250 mg PO DAILY 7 Days Qty: 7 0RF Discharge Orders: Discharge Order (Routine); Ordered 10/03/24 Ordered By: Whitley Hercules Admission Data Admit Date/Time: 09/30/24 17:55 Attending Provider: Whitley Hercules Admit Provider: Vita Kilgore I. Primary Care Provider: Agatha Beach Other Providers: Vita Kilgore I.; Kusum Rasheed; Jaycob Silva; Chris Mckeon; Dar Berg; Dariel Chou; Orlando Evans; Yenifer Mclaughlin; Emilie Rod Christopher T.; [facility]; Micah Beach; Liban Kinsey; Mohsen Byers
[2024-10-03 19:36] VITALS: BP 106/66; PULSE 66; RESP 16; TEMP 98.2; O2SAT 97
[2024-10-03] MEDS ORDERED: PANTOprazole 40 MG/10 ML SYR IV SCH (21:00)
[2024-10-04] MEDS ORDERED: FOLIC ACID 1 MG in SYRINGE 9.8 ML IV SCH (09:00)
[2024-10-04] MEDS ORDERED: THIAMINE HCL 100 MG TAB PO SCH (09:00)
== END 2024-10-03 21:00 | disposition home health service (06) | DRG 919 ==
LOC: ED 15:51 → 2S 17:55 → SUATTDRO 17:55 → 2S 18:49